=== PATIENT | male | born 1950 | race Caucasian/White ===

== ENCOUNTER 2019-11-27 20:21 | Inpatient (IN) | payer OTHER, SELFPAY ==
[2019-11-27 20:22] VITALS: BP 150/74; PULSE 77; RESP 18; TEMP 36.2; O2SAT 92; BMI 28.0
--- NOTE | 2019-11-27 20:48 | EKG12_ITS ---
Test Reason : SOB Blood Pressure : / mmHG Vent. Rate : 075 BPM Atrial Rate : 075 BPM P-R Int : 096 ms QRS Dur : 124 ms QT Int : 406 ms P-R-T Axes : 019 048 011 degrees QTc Int : 453 ms Sinus rhythm with short CO with Premature supraventricular complexes Right bundle branch block Abnormal ECG Confirmed by CORY LIEBERMAN, JESS ([id number]), brands editor RUBY RYDER ([id number]) on 12/11/2019 9:40:21 A M Referred By: VANESSA CHEW Confirmed By:VALENTÍN RAY MD
--- NOTE | 2019-11-27 21:04 | RAD_ITS ---
STUDY: X-RAY CHEST REASON FOR EXAM: Male, 69 years old. WORSENING COUGH, FEVER AND SOB TECHNIQUE: 1 view COMPARISON: Prior chest radiograph from 01/30/2012 FINDINGS: Limited inspiration with new multifocal groundglass infiltrates bilaterally, left greater than right. There is no demonstrated pleural abnormality. Normal size heart. Normal mediastinum and zakia. Normal visualized pulmonary arteries. There is atherosclerotic tortuosity of the aortic arch and descending thoracic aorta. Normal visualized thoracic spine. Normal visualized ribs, clavicles, and shoulders. There is no demonstrated abnormality of the visualized soft tissue structures of the upper abdomen. RAD/Chest 1 View (Portable) IMPRESSION: Shallow inspiration with bilateral multifocal mild infiltrates, right greater the left consistent with a pneumonic process of viral, atypical or typical nature. Electronically Signed: Bri Stahl MD at 21:35 EDT , Service support ,
[2019-11-27 21:08] LABS: Absolute Lymphocyte Count 1.42 X10^3/uL (0.83-4.51); Absolute Neutrophil Count 5.3 X10^3/uL (2.0-7.7); Basophil# 0.03 X10^3/uL; Basophil% 0.4 % (0-1); Eosinophil# 0.09 X10^3/uL; Eosinophils% 1.2 % (0-5); Hematocrit 46.1 % (40-54); Hemoglobin 15.5 g/dL (13.0-16.5); Lymphocyte # 1.42 X10^3/ul (4.0); Lymphocyte % 18.5 % (19-41); Mean Corp Hgb Conc 33.6 g/dL (32-36); Mean Corpuscular Hgb 30.9 pg (27.0-32.0); Mean Platelet Vol. 10.8 fl (6.2-12.0); Monocyte# 0.83 X10^3/uL; Monocyte% 10.8 % (0-10); NRBC Flagged by Analyzer 0 % (0-5); Neutrophil % 68.8 % (47-70); Platelet Count 282 K/mm3 (150-450); RBC Distribution Width CV 13.9 % (11.6-14.6); RBC Distribution Width SD 47.1 fl (35.1-43.9); Red Blood Count 5.01 M/mm3 (4.6-6.2); White Blood Count 7.7 K/mm3 (4.4-11.0)
[2019-11-27 21:25] LABS: Anion Gap 6 (5-15); BUN 16 mg/dL (7-18); BUN/Creat Ratio 12.6 RATIO (10-20); Calcium,Total 8.4 mg/dL (8.5-10.1); Chloride 101 mmol/L (98-107); Creatinine, Serum 1.27 mg/dL (0.70-1.30); EST Glomerular Filtration Rate 59 mL/min (>60); Est Glom Filt Rate - Afr Amer 72 mL/min (>60); Estimated Creatinine Clearance 56.82 ml/min; Glucose 112 mg/dL (74-106); Sodium Level 133 mmol/L (136-145)
[2019-11-27 22:39] VITALS: O2SAT 92
[2019-11-27 22:40] VITALS: BP 128/92; PULSE 75; RESP 18; TEMP 37.4; O2SAT 92
[2019-11-27] MEDS: Benzonatate 100 MG Capsule PO (22:54)
--- NOTE | 2019-11-27 23:09 | ED.VIS.FLU ---
History of Present Illness Chief Complaint: Cough Informant: Patient Onset: Days Context: Gradual Onset Timing: Continuous Narrative: Patient is a 69-year-old male with history of angina presenting with flulike symptoms for the past week. Patient's had cough, mild shortness of breath and fever. His cough is been nonproductive. He denies any GI or symptoms. He denies associated chest pain. He notes that his son had coronavirus 1 month ago. His has very similar symptoms but also has anosmia. Patient is pretty sure he has coronavirus. Patient has any other complaints at this time. Past Medical History - Allergies and Home Meds Allergies/Adverse Reactions: Allergies No Known Allergies Allergy (Verified 11/27/19 20:48) Past Medical History: - - Angina Surgical History: noncontributory Lives: Spouse/ Significant Other Smoking Status: Never smoker - Family History Maternal Family History: Reports: - - no COPD, Asthma, CAD Review of Systems General: Reports: Fever, Malaise. Denies: Chills, Sweats Cardiovascular: Denies: Chest pain, Palpitations Respiratory: Reports: Dyspnea, Cough. Denies: Sputum, Dyspnea on exertion Gastrointestinal: Denies: Abdominal pain, Nausea, Vomiting, Diarrhea, Melena, Hematochezia Genitourinary: Denies: Dysuria, Hematuria, Frequency Skin: Denies: Rash Neurological: Denies: Headache, Weakness, Numbness Physical Exam Vital Signs/Narrative: Vital Signs Temp Pulse Resp BP Pulse Ox 11/27/19 22:40 99.3 F H 75 18 128/92 H 92 11/27/19 20:22 97.1 F L 77 18 150/74 H 92 Inital Vital Signs reviewed: Yes General: Well nourished, Well developed Head: Normocephalic, Atraumatic Eyes: Perrl, EOMI ENT: TM's clear Neck: Supple, Nontender, No lymphadenopathy, No JVD Cardiovascular: Regular rate, Regular rhythm, No murmurs Respiratory: - - Coarse breath sounds throughout. Negative for: Wheezing, Decreased Air Movement Abdomen: Soft, Nontender, Nondistended, Normal bowel sounds Back: Nontender, Normal Inspection Extremities: Nontender, No edema Skin: Normal color, No rash Neurological: Alert, Oriented x3, Cranial nerves II-XII grossly intact, Normal Strength, Normal Sensation Psychological: Normal affect Diagnostic/Tx/Re-eval Chest X-Ray - ED: 1 View, Read by ED Physician, Read by Radiologist, - - multifocal infiltrate Clinical Impression(s) from Imaging Studies Chest X-Ray 11/27/19 21:04 IMPRESSION: Shallow inspiration with bilateral multifocal mild infiltrates, right greater the left consistent with a pneumonic process of viral, atypical or typical nature. Electronically Signed: Bri Stahl MD at 21:35 EDT , Service support , Laboratory Data 11/27/19 11/27/19 20:38 20:38 WBC 7.7 RBC 5.01 Hgb 15.5 Hct 46.1 MCV 92.0 MCH 30.9 MCHC 33.6 RDW Std Deviation 47.1 H RDW Coeff of Christian 13.9 Plt Count 282 MPV 10.8 Immature Gran % (Auto) 0.300 Neut % (Auto) 68.8 Lymph % (Auto) 18.5 L [place] % (Auto) 10.8 H Eos % (Auto) 1.2 Baso % (Auto) 0.4 Absolute Neuts (auto) 5.3 Absolute Lymphs (auto) 1.42 Nucleated RBC % 0 Sodium 133 L Potassium 4.0 Chloride 101 Carbon Dioxide 26.0 Anion Gap 6 BUN 16 Creatinine 1.27 Estim Creat Clear Calc 56.82 Est GFR (MDRD) Af Amer 72 Est GFR (MDRD) Non-Af 59 L BUN/Creatinine Ratio 12.6 Glucose 112 H Calcium 8.4 L Troponin I < 0.015 - Rhythm Strip Rhythm Strip: Sinus Rhythm Rate: 75 Ectopy: None - EKG Initial EKG Interpretation: Sinus Rhythm, - - This rhythm at a rate of 75 HI interval 96 Right bundle branch block QRS 124 QTc 453 Normal axis T wave changes in 3, V1 through V4 Compared to prior EKG patient now has a new right bundle branch block and T wave changes however this was on 01/30/2012 Prior: Changed - Medical Decision Making Patient evaluated for respiratory symptoms/viral symptoms. His presentation is highly consistent with Covid given the sick contacts in his house and the current pandemic. Chest x-ray does show multifocal infiltrate consistent with a viral pneumonia. Patient is otherwise well-appearing. He is ambulated and does drop to 88%. Patient is more concerned about a cough and is given Tessalon Perles for cough relief in the ER. Given his hypoxia with ambulation I did recommend admission. Patient is initially hesitant but then ultimately agrees. He is otherwise stable at time of disposition. ED Disposition - Plan for ED Patient: Disposition: Acute Care Hospital [facility] Diagnosis: Suspected COVID-19 virus infection
--- NOTE | 2019-11-27 23:25 | HP.PCM_ITS ---
Problem List (1) Suspected COVID-19 virus infection Status: Acute History of Present Illness Date of Admission: 11/27/19 Chief Complaint: shortness of breath, cough The patient is a 69 year old M [] Past Medical History Medical History: Medical History (Last Updated 11/27/19 @ 23:[address] Erick Yang, DO) Angina of effort I20.8 Allergies No Known Allergies Allergy (Verified 11/27/19 20:48) Surgical History: noncontributory Lives: Spouse/ Significant Other Smoking Status: Never smoker - *Family History Maternal History Items: - - no COPD, Asthma, CAD Review of Systems Constitutional: Reports: Malaise. Denies: Anorexia, Chills, Fever, Night Sweats Eyes: Denies: Blurred vision, Double vision HEENT: Denies: Head Aches, Sinus Congestion, Sinus Drainage Cardiovascular: Denies: Chest Pain, Palpitations Respiratory: Reports: Cough, Shortness of breath upon exertion Gastrointestinal: Denies: Abdominal Pain, Nausea, Vomiting Genitourinary: Denies: Dysuria Musculoskeletal: Denies: Joint Pain, Joint Tenderness Skin: Denies: Dryness, Jaundice Hematologic/ Lymphatic: Denies: Easy Bruising, Easy Bleeding, Hx of blood clot Comment: All review of systems were negative except as mentioned above in the history of present illness and the other review of systems. VTE Information - Inpt Only VTE Present on Admission: No VTE Mechan Device Prophylaxis: None VTE Pharm Prophylaxis ordered?: Yes - Physical Exam Vitals/I&O's: Vital Signs Temp Pulse Resp BP Pulse Ox 37.4 C H 75 18 128/92 H 92 11/27/19 22:40 11/27/19 22:40 11/27/19 22:40 11/27/19 22:40 11/27/19 22:40 Oxygen Delivery Method Room Air Weight: 91.1 kg Body Mass Index (BMI) 28.0 General: Alert, Cooperative, No apparent distress HEENT: Atraumatic, Normocephalic Oral: Moist Mucosa, No Gingival or Mucosal Lesions/ Ulcerations Neck: No Nodes, Thyroid Normal Size and Texture Lungs: Normal air movement, - - Few scattered crackles Cardiovascular: Regular rate, Regular Rhythm, Normal S1, Normal S2, No murmurs Abdomen: Bowel Sounds Present, Soft, Non Tender, Non-Distended Extremities: No edema, No Calf Tenderness Psych/Mental Status: Normal Affect, Appropriate Laboratory Results 11/27/19 20:38: WBC 7.7, RBC 5.01, Hgb 15.5, Hct 46.1, MCV 92.0, MCH 30.9, MCHC 33.6, RDW Std Deviation 47.1 H, RDW Coeff of Christian 13.9, Plt Count 282, MPV 10.8, Immature Gran % (Auto) 0.300, Neut % (Auto) 68.8, Lymph % (Auto) 18.5 L, [place] % (Auto) 10.8 H, Eos % (Auto) 1.2, Baso % (Auto) 0.4, Absolute Neuts (auto) 5.3, Absolute Lymphs (auto) 1.42, Nucleated RBC % 0 11/27/19 20:38: Sodium 133 L, Potassium 4.0, Chloride 101, Carbon Dioxide 26.0, Anion Gap 6, BUN 16, Creatinine 1.27, Estim Creat Clear Calc 56.82, Est GFR (MDRD) Af Amer 72, Est GFR (MDRD) Non-Af 59 L, BUN/Creatinine Ratio 12.6, Glucose 112 H, Calcium 8.4 L, Troponin I < 0.015 Chest x-ray personally reviewed and showed some bilateral fluffy infiltrates. Assessment/Plan All Active Problems Suspected COVID-19 virus infection (Acute) 1. Acute suspected COVID-19 infection: Concerning as the patient's is also sick being on if there is uptake in cases. Would hold off any treatment for any additional processes such as bacterial pneumonia. Will start the patient on dexamethasone and consult infectious disease candidate for other therapies, including remdesivir and convalescent plasma. Check additional labs. If necessary, patient may be discharged, consider checking a drop down to the 80% range when he ambulated. 2. VTE prophylaxis: LMWH 3. ACP: DW patient. He wishes to be full code. Inpatient E&M: [id number] Init Hosp L2
[2019-11-28] VITALS (9 sets, daily range): BP systolic 116–128; BP diastolic 62–92; PULSE 58–75; RESP 14–18; TEMP 36.8–38; O2SAT 86–95; BMI 27.3
[2019-11-28 00:21] LABS: International Normalized Ratio 1.1; Prothrombin Time (Protime)PT. 13.3 SECONDS (11.7-14.9)
[2019-11-28 00:30] LABS: LDH 257 U/L (87-241)
[2019-11-28 00:33] LABS: Fibrinogen 519 mg/dl (203-444)
[2019-11-28 00:44] LABS: D-Dimer Quantitative (DVT/PE) 0.91 FEU/ug/m (0.27-0.49)
[2019-11-28 00:57] LABS: Lactic Acid 0.9 mmol/L (0.4-1.9)
--- NOTE | 2019-11-28 00:58 | NURSING ---
Patient admitted into room CVICU 204 in stable condition with belongings including cell phone, clothing, and wallet.
[2019-11-28 01:40] LABS: Procalcitonin 0.08 ng/mL (0.00-0.09)
[2019-11-28 05:38] LABS: Absolute Lymphocyte Count 1.36 X10^3/uL (0.83-4.51); Absolute Neutrophil Count 5.3 X10^3/uL (2.0-7.7); Basophil# 0.03 X10^3/uL; Basophil% 0.4 % (0-1); Eosinophil# 0.03 X10^3/uL; Eosinophils% 0.4 % (0-5); Hematocrit 46.6 % (40-54); Hemoglobin 15.3 g/dL (13.0-16.5); Lymphocyte # 1.36 X10^3/ul (4.0); Lymphocyte % 17.9 % (19-41); Mean Corp Hgb Conc 32.8 g/dL (32-36); Mean Corpuscular Hgb 30.8 pg (27.0-32.0); Mean Corpuscular Volume 93.8 fL (80-94); Mean Platelet Vol. 10.8 fl (6.2-12.0); Monocyte# 0.86 X10^3/uL; Monocyte% 11.3 % (0-10); NRBC Flagged by Analyzer 0 % (0-5); Neutrophil # 5.27 X10^3/uL (2.7-7.7); Neutrophil % 69.6 % (47-70); POSITIVE COUNT YES; Platelet Count 244 K/mm3 (150-450); RBC Distribution Width SD 48.8 fl (35.1-43.9); Red Blood Count 4.97 M/mm3 (4.6-6.2); White Blood Count 7.6 K/mm3 (4.4-11.0)
[2019-11-28 05:44] LABS: Anion Gap 5 (5-15); BUN 15 mg/dL (7-18); BUN/Creat Ratio 13.2 RATIO (10-20); Calcium,Total 8.1 mg/dL (8.5-10.1); Chloride 103 mmol/L (98-107); Creatinine, Serum 1.14 mg/dL (0.70-1.30); EST Glomerular Filtration Rate 67 mL/min (>60); Est Glom Filt Rate - Afr Amer 81 mL/min (>60); Estimated Creatinine Clearance 61.37 ml/min; Glucose 98 mg/dL (74-106); Potassium 3.9 mmol/L (3.5-5.1); Sodium Level 134 mmol/L (136-145)
[2019-11-28 05:50] LABS: Differential Indicated SCAN CRITERIA MET
[2019-11-28 06:30] LABS: Differential Comment SCANNED
[2019-11-28 06:31] LABS: Platelet Estimate ADEQUATE (ADEQ)
[2019-11-28] MEDS: dexAMETHasone 10 MG/ML Vial 6 MG IV (09:12)
[2019-11-28] MEDS: Enoxaparin 30 MG/0.3 ML Syringe SC (09:12)
[2019-11-28] MEDS: 0.9% Saline Lock 10 ML Syringe IV (09:13)
--- NOTE | 2019-11-28 13:30 | CASEMGMT ---
SVETLANA WELCH ASSESSMENT COVID-19 positive. Pt in isolation precautions. SVETLANA WELCH placed call to pt in his room at this time. Introduced self and role of SVETLANA WELCH @ [facility]. Care providers, pharmacy, and demographics verified/updated at this time. PCP: Dr Singer Specialists: none Preferred Pharmacy: [facility] Retail Insurance: [facility] [place] Prescription Benefit:? none Living Will/HPOA:? States does not have LW or HCPOA .? Interested in more information. Pt made aware SW can assist w/completion of this if he would like to make an appt as an out-pt after he is out of COVID precautions and that further info would be provided. SW rac card given to RN to give to pt. Pt voices appreciation. LNOK: , Graciela. 3 sons Living Arrangements/support: Lives w/his in 1 2 story home w/2 steps to enter. Independent. Pt aware his should self-quarantine x 14 days. He states they have mask, hand mainspring reverse winder, and disinfectants. Grand-children can get groceries, supplies, and medications as needed. Transportation: Hire drivers, family, neighbors. DME: ? Denies using any DME. Pt aware he may need oxygen @ d/c. He denies having preference of DME company. Pt wishes to return home and states has no concerns with going home at time of discharge.? CM to follow for home oxygen needs and any further discharge planning/needs.? Pt voices no further concerns/needs at this time.? Advised pt to ask for CM if any further questions/concerns/needs arise.? Voices understanding. PLAN: ?Home w/family support and discharge plans in place. Will need home oxygen testing done prior to d/c. Tad QURESHI RN, CM
--- NOTE | 2019-11-28 15:15 | DCINST_ITS ---
- Discharge Diagnoses Current Active Problems: Current Active and Chronic Problems (Last Updated 11/27/19 @ 23:[address] Erick Yang, DO) Suspected COVID-19 virus infection (Acute) You will use the following diet at home:: No restrictions Your food should be the consistency of: Regular Your liquids should be the consistency of: Regular/Thin Discharge Activity: Return to Normal Activity Weight Bearing Status: Full weight bearing Additional Instructions: QUARANTINE AT HOME FOR TEN DAYS. USE OXYGEN AT 2 LITERS UNTIL FOLLOWUP. i RECOMMEND GOING OFF ASPIRIN A DAILY MED Allergies/Adverse Reactions: Allergies No Known Allergies Allergy (Verified 11/27/19 20:48) Medications to take at Discharge Acetaminophen [Tylenol Tablet] 650 mg PO Q6H PRN PRN tablet 11/28/19 Dexamethasone [Decadron] 6 mg PO DAILY@0800 #15 tab 11/28/19 Diltiazem HCl [Cartia Xt] 1 cap PO DAILY 11/28/19 The following prescriptions were given: Dexamethasone [Decadron] 6 mg PO DAILY@0800 #15 tab Transmission Status: Pending to [facility] Primary Care Physician: Stanislaw Singer MD [Primary Care Provider] - Please follow up with your Primary Care Physician in: IN 10 DAYS Test Results: Test results from this visit will be discussed in further detail at your follow- up appointment, if applicable.
--- NOTE | 2019-11-28 15:56 | CASEMGMT ---
SVETLANA WELCH NOTE: Pt being discharged and he qualifies for Home O2 @ 2l/m w/exertion. Call placed to pt's room. He is aware cost of O2 for one month is approx ~158 and states this is affordable and he can pay via phone. Pt has no preference of [employer] company. Script for O2 faxed to [employer] at this time along w/Home O2 testing results and demographics sheet. . Call placed to [facility] and spoke w/Beulah. She was made aware pt is discharging today and will need O2 delivered to [facility]. She will contact pt for payment and to set up home delivery. Awaiting delivery of oxygen. Tad QURESHI RN CM
--- NOTE | 2019-11-28 16:10 | CON.PCM_ITS ---
Problem List (1) COVID-19 Status: Acute Reason for Consult: covid Consulted by: Dr. Yang History of Present Illness: The patient is a 69 year old M with sx starting 11/21 of cough, fatigue, not feeling well. No change in taste/smell. No aches, no headache, no n/v/d. Developed dyspnea after mowing, came to ED. also with similar symptoms but not as sick as him. Admitted on 4L O2 and dexamethasone. Feeling better today, O2 improved. No chest pain. Full ROS performed and neg except as noted above. - Medical History Surgical History: reviewed Allergies/Adverse Reactions: Allergies No Known Allergies Allergy (Verified 11/27/19 20:48) Home Medications: Ambulatory Orders Medication Instructions Recorded Acetaminophen [Tylenol Tablet] 650 mg PO Q6H PRN PRN tab 11/28/19 Dexamethasone [Decadron] 6 mg PO DAILY@0800 #15 tab 11/28/19 Diltiazem HCl [Cartia Xt] 1 cap PO DAILY 11/28/19 - Social History Tobacco Use: non-smoker Vital Signs Temp Pulse Resp BP Pulse Ox 98.2 F 73 18 127/70 H 92 11/28/19 14:00 11/28/19 14:00 11/28/19 14:00 11/28/19 14:00 11/28/19 14:00 Oxygen Flow Rate (L/min) [ 2 AMBULATION with Oxygen] Oxygen Flow Rate (L/min) 2 Oxygen Delivery Method Nasal Cannula Weight: 88.7 kg Body Mass Index (BMI) 27.3 Laboratory Tests Past 24 Hrs 11/27/19 11/27/19 11/27/19 20:38 20:38 20:38 WBC 7.7 RBC 5.01 Hgb 15.5 Hct 46.1 MCV 92.0 MCH 30.9 MCHC 33.6 RDW Std Deviation 47.1 H RDW Coeff of Christian 13.9 Plt Count 282 MPV 10.8 Immature Gran % (Auto) 0.300 Neut % (Auto) 68.8 Lymph % (Auto) 18.5 L [place] % (Auto) 10.8 H Eos % (Auto) 1.2 Baso % (Auto) 0.4 Absolute Neuts (auto) 5.3 Absolute Lymphs (auto) 1.42 Nucleated RBC % 0 Differential Comment Platelet Estimate PT 13.3 INR 1.1 Fibrinogen 519 H D-Dimer Quant (PE/DVT) 0.91 H* Sodium 133 L Potassium 4.0 Chloride 101 Carbon Dioxide 26.0 Anion Gap 6 BUN 16 Creatinine 1.27 Estim Creat Clear Calc 56.82 Est GFR (MDRD) Af Amer 72 Est GFR (MDRD) Non-Af 59 L BUN/Creatinine Ratio 12.6 Glucose 112 H Lactic Acid Calcium 8.4 L Lactate Dehydrogenase Troponin I < 0.015 Procalcitonin COVID-19 (SAMMI) 11/27/19 11/27/19 11/28/19 20:38 23:20 00:20 WBC RBC Hgb Hct MCV MCH MCHC RDW Std Deviation RDW Coeff of Christian Plt Count MPV Immature Gran % (Auto) Neut % (Auto) Lymph % (Auto) [place] % (Auto) Eos % (Auto) Baso % (Auto) Absolute Neuts (auto) Absolute Lymphs (auto) Nucleated RBC % Differential Comment Platelet Estimate PT INR Fibrinogen D-Dimer Quant (PE/DVT) Sodium Potassium Chloride Carbon Dioxide Anion Gap BUN Creatinine Estim Creat Clear Calc Est GFR (MDRD) Af Amer Est GFR (MDRD) Non-Af BUN/Creatinine Ratio Glucose Lactic Acid 0.9 Calcium Lactate Dehydrogenase 257 H Troponin I Procalcitonin COVID-19 (SAMMI) Detected 11/28/19 11/28/19 11/28/19 00:20 05:20 05:20 WBC 7.6 RBC 4.97 Hgb 15.3 Hct 46.6 MCV 93.8 MCH 30.8 MCHC 32.8 RDW Std Deviation 48.8 H RDW Coeff of Christian 14.0 Plt Count 244 MPV 10.8 Immature Gran % (Auto) 0.400 Neut % (Auto) 69.6 Lymph % (Auto) 17.9 L [place] % (Auto) 11.3 H Eos % (Auto) 0.4 Baso % (Auto) 0.4 Absolute Neuts (auto) 5.3 Absolute Lymphs (auto) 1.36 Nucleated RBC % 0 Differential Comment SCANNED Platelet Estimate ADEQUATE PT INR Fibrinogen D-Dimer Quant (PE/DVT) Sodium 134 L Potassium 3.9 Chloride 103 Carbon Dioxide 26.0 Anion Gap 5 BUN 15 Creatinine 1.14 Estim Creat Clear Calc 61.37 Est GFR (MDRD) Af Amer 81 Est GFR (MDRD) Non-Af 67 BUN/Creatinine Ratio 13.2 Glucose 98 Lactic Acid Calcium 8.1 L Lactate Dehydrogenase Troponin I Procalcitonin 0.08 COVID-19 (SAMMI) - Other Studies Radiology: [] reviewed Other Studies: [] Route of nutrition/ use of supplements: [] Nutritional Intake: [] IV Site: [] Bang Catheter: [] - Physical Exam General: Alert, Oriented x3, Cooperative, No apparent distress HEENT: Atraumatic, PERRLA, EOMI Neck: Supple, No Nodes Lungs: Clear to auscultation, Normal air movement - mildly diminished Cardiovascular: Regular rate, Regular Rhythm, No murmurs Abdomen: Soft, Non Tender, Non-Distended Extremities: No edema Skin: No rashes IV Site: Peripheral, without redness Musculoskeletal: No Tenderness to Palpation of Joints or Extremities Neurological: Cranial nerves II-XII grossly intact - Assessment/Plan Antibiotics: [] Assessment/Plan: [] Active and Suspected Problems (Last Updated 11/27/19 @ 23:[address] Erick Yang, DO) Suspected COVID-19 virus infection (Acute) covid with acute hypoxic resp failure - doing better today, ok for discharge home to complete 10 total days of dexamethasone, home O2. Counseling him re: monitoring sat, prone positioning, coming back if dyspnea worsens. Quarantine f or one more week. Will follow, thank you, d/w primary team.
--- NOTE | 2019-11-30 16:42 | DS.PCM_ITS ---
Discharge Date and Diagnosis - Problem List Patient Problems: Active and Suspected Problems (Last Updated 11/27/19 @ 23:[address] Erick Yang DO) Suspected COVID-19 virus infection (Acute) COVID-19 (Acute) Date of Admission: 11/27/19 Date of Discharge: 11/28/19 - Primary Discharge Diagnosis Acute Problems: Active Problems (Last Updated 11/27/19 @ 23:[address] Erick Yang DO) #1 acute COVID-19 infection #2 hypoxia secondary to COVID-19 infection #3 essential hypertension Hospital Course and Treatment Operations: None Procedures: None Summary of Care Provided: The patient is a 69 year old M seen in the emergency room at [facility] with a chief complaint of cough with mild shortness of breath. Work-up in the emergency room included a chest x-ray which showed bilateral multifocal mild infiltrates right greater than left, blood cell count was normal, Covid test was positive. Patient's oxygen dropped to 88% when ambulating. Patient was admitted to [place] [address], he was seen in consultation by infectious diseases who did not feel the patient warranted remdesivir or convalescent plasma. Patient required 2 L of oxygen when ambulating due to the fact his pulse ox was 86 ambulating on room air. O2 saturation was 95% on ambulation with 2 L and at rest, patient's pulse ox was 90%. He was supplied with portable oxygen, he is expected to use oxygen in his house and outside his house when ambulating. On 11/28/2019, patient was seen and examined: On examination he appeared in good health and spirits. Vital signs as documented. Skin warm and dry and without overt rashes. Neck without JVD, neck was supple, trachea midline, thyroid was normal. Lungs clear bilaterally, normal air movement was noted. Heart exam notable for regular rhythm, normal sounds and absence of murmurs, rubs or gallops. Abdomen unremarkable and without evidence of organomegaly, masses, or abdominal aortic enlargement. Bowel sounds are present, abdomen is not distended. Extremities nonedematous, no cyanosis was noted, no clubbing was noted. Neuro: Cranial nerves II through XII are grossly intact, no focal motor deficits were noted, sensation to light touch and pinprick intact, motor exam 5/5 throughout. Psych: Patient is alert and oriented x3, he does not appear anxious or depressed, he does not appear agitated. Patient was discharged home in stable condition on 11/28/2019. Patient Problems: Active and Suspected Problems (Last Updated 11/27/19 @ 23:[address] Erick Yang, DO) Suspected COVID-19 virus infection (Acute) COVID-19 (Acute) - Physical Exam Vitals/I&O's: Vital Signs Temp Pulse Resp BP Pulse Ox 98.2 F 73 18 127/70 H 92 11/28/19 17:02 11/28/19 17:02 11/28/19 17:02 11/28/19 17:02 11/28/19 17:02 Oxygen Flow Rate (L/min) [ 2 AMBULATION with Oxygen] Oxygen Flow Rate (L/min) 2 Oxygen Delivery Method Nasal Cannula Weight: 88.7 kg Body Mass Index (BMI) 27.3 Intake and Output for Last 24 Hours 11/28/19 11/29/19 11/30/19 23:59 23:59 23:59 Intake Total 700 / 700 Balance 700 / 700 Discharge Activity: Return to Normal Activity Weight Bearing Status: Full weight bearing Home Medications: Medications to take at Discharge Acetaminophen [Tylenol Tablet] 650 mg PO Q6H PRN PRN tab 11/28/19 Dexamethasone [Decadron] 6 mg PO DAILY@0800 #15 tab 11/28/19 Diltiazem HCl [Cartia Xt] 1 cap PO DAILY 11/28/19 Following Prescriptions Were Given to Patient: Dexamethasone [Decadron] 6 mg PO DAILY@0800 #15 tab Transmission Status: Received by [facility] Primary Care Physician: Stanislaw Singer MD [Primary Care Provider] - Please follow up with your Primary Care Physician in: IN 10 DAYS Disposition: Home Minutes spent on discharge:: 32 Patient Condition:: Stable Medical Necessity - Tobacco Use Smoking Status: Never smoker Meaningful Use Info Meaningful Use Diagnoses (Choose all that apply): None applicable Inpatient E&M: 66134 Disch Hosp
== END 2019-11-28 17:03 | disposition home or self-care (01) | DRG 179 ==
LOC: ED 21:40 → ICU 23:57
PROVIDERS: Emergency Provider Emergency Medicine; PCP Family Medicine; Visit Provider Internal Medicine
DX: U07.1 COVID-19 (principal); I20.9 Angina pectoris, unspecified; I10 Essential (primary) hypertension; R09.02 Hypoxemia
CPT/HCPCS: 71045; 80048; 83605; 83615; 84145; 84484; 85025; 85379; 85384; 85610; 87635; 93005; 94760; 99283; 99285; A4216; U0003

== ENCOUNTER 2022-06-24 11:03 | Emergency (ER) | payer OTHER, SELFPAY ==
[2022-06-24 11:05] VITALS: BP 130/70; PULSE 71; RESP 16; TEMP 36.2; O2SAT 98; BMI 27.6
--- NOTE | 2022-06-24 11:24 | EX.ED.DYSGE1 ---
HPI <ANTONIO Angel - Last Filed: 06/24/22 19:36> History of Present Illness Chief Complaint: GI Bleed Narrative Narrative: Patient presenting today due black stools that he has noticed since the end of May. He states he been feeling lightheaded intermittently. He states that he noticed dark and tarry stools several months ago that went away after about 5 days and he was never evaluated for it. He denies a history of any history of gastric ulcers, bright red blood in the stool, chest pain, shortness of breath, abdominal pain, nausea, and vomiting. He denies alcohol use, tobacco use, and frequent use of NSAIDs. PMH includes coronary artery disease. Patient does take a baby aspirin daily. PFSH <ANTONIO Angel - Last Filed: 06/24/22 19:36> [facility] Medical History (Updated 06/24/22 @ 13:[address] Almas Jacob, DO) Angina of effort Hypertension Home Medications acetaminophen 325 mg tablet 650 mg PO Q6H PRN PRN Pain Score 1-10/Temp > 100.7 F 11/28/19 [Rx Last Taken Unknown] dexamethasone 4 mg tablet 6 mg PO DAILY@0800 #15 tabs 11/28/19 [Rx Last Taken Unknown] diltiazem HCl 180 mg capsule,extended release 24 hr 1 cap PO DAILY Check with primary doctor 11/28/19 [History Last Taken 11/27/19 08:00] aspirin 81 mg tablet,delayed release 81 mg PO DAILY 06/24/22 [History Last Taken Unknown] atorvastatin 40 mg tablet 40 mg PO DAILY 06/24/22 [History Last Taken Unknown] bupropion HCl 300 mg 24 hr tablet, extended release 300 mg PO DAILY 06/24/22 [History Last Taken Unknown] carvedilol 3.125 mg tablet 12.5 mg PO DAILY 06/24/22 [History Last Taken Unknown] folic acid 1 mg tablet 1 mg PO DAILY 06/24/22 [History Last Taken Unknown] losartan 50 mg tablet 50 mg PO DAILY 06/24/22 [History Last Taken Unknown] omeprazole 40 mg capsule,delayed release 40 mg PO DAILY #30 caps 06/24/22 [Rx Last Taken Unknown] Allergy/AdvReac Type Severity Reaction Status Date / Time No Known Allergies Allergy Verified 06/24/22 11:04 Social History Smoking Status: Never smoker ROS <ANTONIO Angel - Last Filed: 06/24/22 19:36> ROS ED Constitutional Constitutional ED: Denies chills or fever(s) Cardiovascular Cardiovascular: Denies chest pain or palpitations Respiratory/Chest Respiratory/Chest: Denies cough, dyspnea or dyspnea on exertion Gastrointestinal Gastrointestinal: Reports melena; Denies abdominal pain, constipation, diarrhea, nausea or vomiting Musculoskeletal Musculoskeletal: Denies arthralgias or myalgias Integumentary Denies abscess, Abrasions or rash Neurologic Neurologic: Denies dizziness Psychiatric Psychiatric: Denies anxiety or depression EXAM <ANTONIO Angel - Last Filed: 06/24/22 19:36> Physical Exam Const Vital Signs: 06/24/22 11:05 06/24/22 12:19 06/24/22 12:56 Temperature 97.1 F L Temperature Source Temporal Pulse Rate 71 60 Pulse Rate [Lying] 71 Pulse Rate [Sitting (for 1 minute prior to obtaining)] 59 L Pulse Rate [Standing (for 1 minute prior to obtaining)] 59 L Respiratory Rate 16 16 Blood Pressure 130/70 H 124/80 H Blood Pressure [Lying] 141/86 H Blood Pressure [Sitting (for 1 minute prior to obtaining)] 159/63 H Blood Pressure [Standing (for 1 minute prior to obtaining)] 143/93 H Blood Pressure Mean 90 94 Blood Pressure Mean [Lying] 104 Blood Pressure Mean [Sitting (for 1 minute prior to obtaining)] 95 Blood Pressure Mean [Standing (for 1 minute prior to obtaining)] 109 Pulse Ox 98 98 Oxygen Delivery Method Room Air Room Air 06/24/22 13:37 Temperature Temperature Source Pulse Rate 58 L Pulse Rate [Lying] Pulse Rate [Sitting (for 1 minute prior to obtaining)] Pulse Rate [Standing (for 1 minute prior to obtaining)] Respiratory Rate 18 Blood Pressure 143/83 H Blood Pressure [Lying] Blood Pressure [Sitting (for 1 minute prior to obtaining)] Blood Pressure [Standing (for 1 minute prior to obtaining)] Blood Pressure Mean Blood Pressure Mean [Lying] Blood Pressure Mean [Sitting (for 1 minute prior to obtaining)] Blood Pressure Mean [Standing (for 1 minute prior to obtaining)] Pulse Ox 99 Oxygen Delivery Method Positive well nourished, well developed and no apparent distress General Appearance ED: well developed HEENT Reports normocephalic and head/scalp atraumatic Mouth ED: Yes moist mucous membranes normal Eyes PERRL and EOMs intact bilaterally Neck full ROM and supple Chest Wall inspection of chest normal Resp normal respiratory effort and clear to auscultation bilaterally Cardio regular rate and regular rhythm GI soft to palpation, non-tender, non-distended and no masses Back/Spine normal ROM and normal to inspection Extremity normal to inspection and full ROM Neuro oriented x3, CN's II-XII intact bilaterally, moves all extremities, no focal motor deficits and no sensory deficits noted Sensorium / Orientation: awake and alert Psych mental status grossly normal and thought process normal Skin no rashes or lesions noted and no wounds <Dr. Almas Jacob, DO - Last Filed: 06/24/22 13:37> Physical Exam Const Vital Signs: 06/24/22 11:05 06/24/22 12:19 06/24/22 12:56 Temperature 97.1 F L Temperature Source Temporal Pulse Rate 71 60 Pulse Rate [Lying] 71 Pulse Rate [Sitting (for 1 minute prior to obtaining)] 59 L Pulse Rate [Standing (for 1 minute prior to obtaining)] 59 L Respiratory Rate 16 16 Blood Pressure 130/70 H 124/80 H Blood Pressure [Lying] 141/86 H Blood Pressure [Sitting (for 1 minute prior to obtaining)] 159/63 H Blood Pressure [Standing (for 1 minute prior to obtaining)] 143/93 H Blood Pressure Mean 90 94 Blood Pressure Mean [Lying] 104 Blood Pressure Mean [Sitting (for 1 minute prior to obtaining)] 95 Blood Pressure Mean [Standing (for 1 minute prior to obtaining)] 109 Pulse Ox 98 98 Oxygen Delivery Method Room Air Room Air 06/24/22 13:37 Temperature Temperature Source Pulse Rate 58 L Pulse Rate [Lying] Pulse Rate [Sitting (for 1 minute prior to obtaining)] Pulse Rate [Standing (for 1 minute prior to obtaining)] Respiratory Rate 18 Blood Pressure 143/83 H Blood Pressure [Lying] Blood Pressure [Sitting (for 1 minute prior to obtaining)] Blood Pressure [Standing (for 1 minute prior to obtaining)] Blood Pressure Mean Blood Pressure Mean [Lying] Blood Pressure Mean [Sitting (for 1 minute prior to obtaining)] Blood Pressure Mean [Standing (for 1 minute prior to obtaining)] Pulse Ox 99 Oxygen Delivery Method [facility] <ANTONIO Angel Last Filed: 06/24/22 19:36> [facility] Narrative Medical decision making narrative: Patient presenting today due to black stools that he has noticed since the end of May. He states that he did notice dark stools around a year ago that lasted for about 5 days but he never followed up with a provider for this. He states he has been feeling lightheaded. Labs to be obtained to rule out anemia, leukocytosis, assess kidney function, rule out electrolyte abnormality. Stool occult will be obtained to rule out GI bleed and is positive. Patient has been given Protonix. H&H is 14 and 42.7. During orthostatic vital signs, patient did not become symptomatic. He was able to ambulate without any lightheadedness or difficulty. Because we do not have GI coverage, shared decision making was made with the patient regarding transfer to a different facility vs close outpatient follow-up and PPI. He does not want to be transferred and would rather follow-up outpatient. I have given him a prescription for omeprazole and have told him to hold his baby aspirin until he meets with Dr. Fajardo. He has been given strict return instructions and will be discharged home in stable condition. He is comfortable with plan. Interventions / MDM: Differential diagnosis: Upper GI bleed, gastric ulcer, gastritis Diagnosis considered but do not suspect: N/A My EKG interpretation: Sinus, normal QTc right bundle branch block similar to previous in 2019. Imaging independently reviewed and interpreted by myself: N/A External documents reviewed: N/A Test considered but not ordered:N/A ED course: Attending note: Patient seen and evaluated with painter foreman. I perform my own [id number] evaluation. I agree with the plan of work-up. Reporting dark stools for the past couple weeks 1-2 times a day. Today lightheaded symptoms. No dyspnea or exertional dyspnea. He takes baby aspirin. He denies lyrh-pyw-youofog NSAID use. Similar symptoms over winter break lasting 5 days. No upper endoscopies in the past. Denies abdominal pain. Exam normal conjunctivae with no pallor of the skin and soft abdomen. No guarding or rebound. Rectal exam performed by painter foreman is guaiac positive hemoglobin is 14. EKG chronic right bundle branch block. Orthostatic positive by heart rate by numbers however clinically he was not lightheaded. Considered admission with the patient with his age and upper GI bleed, there is no GI coverage and discussed transfer for the patient however he declines at this time. Shared decision making made with the patient. He started on a PPI outpatient GI follow-up with strict return precautions. He will hold his baby aspirin as he reports he had a normal cath a year ago with no interventions. Re-evaluation: stable Disposition discussed with patient/family/significant other: Patient and son Case discussed with consulting clinician: N/A Lab Data Lab results narrative: H&H 14 and 42.7, platelet count 519, anion gap 4, creatinine 1.32, GFR 56 Labs: Laboratory Results - last 24 hr 06/24/22 06/24/22 06/24/22 11:40 11:40 11:40 WBC 8.7 RBC 4.44 L Hgb 14.0 Hct 42.7 MCV 96.2 H MCH 31.5 MCHC 32.8 RDW Std Deviation 49.0 H RDW Coeff of Christian 13.7 Plt Count 519 H MPV 9.9 Immature Gran % (Auto) 0.700 Neut % (Auto) 63.1 Lymph % (Auto) 24.1 [place] % (Auto) 8.3 Eos % (Auto) 3.2 Baso % (Auto) 0.6 Absolute Neuts (auto) 5.5 Absolute Lymphs (auto) 2.09 Nucleated RBC % 0 Sodium 143 Potassium 4.5 Chloride 110 H Carbon Dioxide 29.0 Anion Gap 4 L BUN 17 Creatinine 1.32 H Estim Creat Clear Calc 53.08 Est GFR (MDRD) Af Amer 68 Est GFR (MDRD) Non-Af 56 L BUN/Creatinine Ratio 12.9 Glucose 108 H Calcium 8.5 Blood Type A POSITIVE Antibody Screen NEGATIVE EKG Initial EKG: Comments: 59 bpm, sinus bradycardia, right bundle branch block, no ST elevation, reviewed and interpreted by attending ED physician <Dr. Almas Jacob, DO - Last Filed: 06/24/22 13:37> [facility] Narrative Medical decision making narrative: Patient presenting today due to black stools that he has noticed since the end of May. He states that he did notice dark stools around a year ago that lasted for about 5 days but he never followed up with a provider for this. He states he has been feeling lightheaded. Labs to be obtained to rule out anemia, leukocytosis, assess kidney function, rule out electrolyte abnormality. Stool occult will be obtained to rule out GI bleed. Patient has been given Protonix. Interventions / MDM: Differential diagnosis: Upper GI bleed, gastric ulcer, gastritis Diagnosis considered but do not suspect: N/A My EKG interpretation: Sinus, normal QTc right bundle branch block similar to previous in 2019. Imaging independently reviewed and interpreted by myself: N/A External documents reviewed: N/A Test considered but not ordered:N/A ED course: Attending note: Patient seen and evaluated with painter foreman. I perform my own [id number] evaluation. I agree with the plan of work-up. Reporting dark stools for the past couple weeks 1-2 times a day. Today lightheaded symptoms. No dyspnea or exertional dyspnea. He takes baby aspirin. He denies vexl-fbh-thzykie NSAID use. Similar symptoms over winter break lasting 5 days. No upper endoscopies in the past. Denies abdominal pain. Exam normal conjunctivae with no pallor of the skin and soft abdomen. No guarding or rebound. Rectal exam performed by painter foreman is guaiac positive hemoglobin is 14. EKG chronic right bundle branch block. Orthostatic positive by heart rate by numbers however clinically he was not lightheaded. Considered admission with the patient with his age and upper GI bleed, there is no GI coverage and discussed transfer for the patient however he declines at this time. Shared decision making made with the patient. He started on a PPI outpatient GI follow-up with strict return precautions. He will hold his baby aspirin as he reports he had a normal cath a year ago with no interventions. Re-evaluation: stable Disposition discussed with patient/family/significant other: Patient and son Case discussed with consulting clinician: N/A Lab Data Attestation: I reviewed the patient's lab results. Labs: Laboratory Results - last 24 hr 06/24/22 06/24/22 06/24/22 11:40 11:40 11:40 WBC 8.7 RBC 4.44 L Hgb 14.0 Hct 42.7 MCV 96.2 H MCH 31.5 MCHC 32.8 RDW Std Deviation 49.0 H RDW Coeff of Christian 13.7 Plt Count 519 H MPV 9.9 Immature Gran % (Auto) 0.700 Neut % (Auto) 63.1 Lymph % (Auto) 24.1 [place] % (Auto) 8.3 Eos % (Auto) 3.2 Baso % (Auto) 0.6 Absolute Neuts (auto) 5.5 Absolute Lymphs (auto) 2.09 Nucleated RBC % 0 Sodium 143 Potassium 4.5 Chloride 110 H Carbon Dioxide 29.0 Anion Gap 4 L BUN 17 Creatinine 1.32 H Estim Creat Clear Calc 53.08 Est GFR (MDRD) Af Amer 68 Est GFR (MDRD) Non-Af 56 L BUN/Creatinine Ratio 12.9 Glucose 108 H Calcium 8.5 Blood Type A POSITIVE Antibody Screen NEGATIVE Discharge Plan Triage Chief Complaint: GI Bleed ED Midlevel Provider: Paula Meyers ED Provider: Almas Jacob Dx/Rx/DC Orders Clinical Impression: GI bleed, Melena Instructions: ED Upper GI Bleeding (Stable) Prescriptions: New omeprazole 40 mg capsule,delayed release(DR/EC) 40 mg PO DAILY Qty: 30 0RF No Action diltiazem HCl 180 MG capsule,extended release 24hr 1 cap PO DAILY Label Comments: TAKE 1 CAPSULE BY MOUTH ONCE DAILY acetaminophen 325 MG tablet 650 mg PO Q6H PRN PRN (Reason: Pain Score 1-10/Temp > 100.7 F) 0RF dexamethasone 4 MG tablet 6 mg PO DAILY@0800 Qty: 15 0RF losartan 50 mg tablet 50 mg PO DAILY Label Comments: TAKE 1 TABLET BY MOUTH ONCE DAILY atorvastatin 40 mg tablet 40 mg PO DAILY Label Comments: TAKE 1 TABLET BY MOUTH ONCE DAILY AT BEDTIME aspirin 81 mg tablet,delayed release (DR/EC) 81 mg PO DAILY Label Comments: TAKE 1 TABLET BY MOUTH ONCE DAILY carvedilol 3.125 mg tablet 12.5 mg PO DAILY Label Comments: TAKE 1 TABLET BY MOUTH TWICE DAILY folic acid 1 mg tablet 1 mg PO DAILY Label Comments: TAKE 2 TABLETS BY MOUTH ONCE DAILY bupropion HCl 300 mg tablet extended release 24 hr 300 mg PO DAILY Label Comments: TAKE 1 TABLET BY MOUTH ONCE DAILY Primary Care Provider: Stanislaw Singer Referrals: Stanislaw Singer MD [Primary Care Provider] - Konstantin Fajardo DO [Med Staff - Active Staff] - 3-5 Days Activity Restrictions/Additional Instructions: Called to make an appointment with Dr. Fajardo and follow-up with him as soon as possible. Please return for any worsening of your symptoms. Disposition Disposition: Home, Self Care Discharge Date/Time: 06/24/22 13:39
[2022-06-24 11:58] LABS: Absolute Lymphocyte Count 2.09 X10^3/uL (0.83-4.51); Absolute Neutrophil Count 5.5 X10^3/uL (2.0-7.7); Basophil# 0.05 X10^3/uL; Basophil% 0.6 % (0-1); Eosinophil# 0.28 X10^3/uL; Eosinophils% 3.2 % (0-5); Hematocrit 42.7 % (40-54); Lymphocyte # 2.09 X10^3/ul (0.83-4.51); Lymphocyte % 24.1 % (19-41); Mean Corp Hgb Conc 32.8 g/dL (32-36); Mean Corpuscular Hgb 31.5 pg (27.0-32.0); Mean Corpuscular Volume 96.2 fL (80-94); Mean Platelet Vol. 9.9 fl (6.2-12.0); Monocyte# 0.72 X10^3/uL; Monocyte% 8.3 % (0-10); NRBC Flagged by Analyzer 0 % (0-5); Neutrophil # 5.47 X10^3/uL (2.7-7.7); Neutrophil % 63.1 % (47-70); Platelet Count 519 K/mm3 (150-450); RBC Distribution Width CV 13.7 % (11.6-14.6); Red Blood Count 4.44 M/mm3 (4.6-6.2); White Blood Count 8.7 K/mm3 (4.4-11.0)
--- NOTE | 2022-06-24 12:01 | EKG12_ITS ---
Test Reason : gi bleed Blood Pressure : / mmHG Vent. Rate : 059 BPM Atrial Rate : 059 BPM P-R Int : 150 ms QRS Dur : 140 ms QT Int : 452 ms P-R-T Axes : 040 001 -09 degrees QTc Int : 447 ms Sinus bradycardia with Fusion complexes Right bundle branch block Nonspecific ST-T changes Abnormal ECG Confirmed by CORY LIEBERMAN, JESS ([id number]), social media editor RUBY RYDER ([id number]) on 06/26/2022 11:29:13 A M Referred By: Sergio Confirmed By:VALENTÍN RAY MD
[2022-06-24 12:04] LABS: Anion Gap 4 (5-15); BUN 17 mg/dL (7-18); BUN/Creat Ratio 12.9 RATIO (10-20); Calcium,Total 8.5 mg/dL (8.5-10.1); Chloride 110 mmol/L (98-107); Creatinine, Serum 1.32 mg/dL (0.70-1.30); EST Glomerular Filtration Rate 56 mL/min (>60); Est Glom Filt Rate - Afr Amer 68 mL/min (>60); Estimated Creatinine Clearance 53.08 ml/min; Glucose 108 mg/dL (74-106); Potassium 4.5 mmol/L (3.5-5.1); Sodium Level 143 mmol/L (136-145)
[2022-06-24 12:19] VITALS: BP 124/80; PULSE 60; RESP 16; O2SAT 98
[2022-06-24 12:56] VITALS: BP 141/86; BP 143/93; BP 159/63; PULSE 59; PULSE 71
[2022-06-24 13:37] VITALS: BP 143/83; PULSE 58; RESP 18; O2SAT 99
== END 2022-06-24 13:39 | disposition home or self-care (01) ==
PROVIDERS: Physician Assistant; Emergency Provider Emergency Medicine; PCP Family Medicine; Visit Provider Emergency Medicine
DX: K92.2 Gastrointestinal hemorrhage, unspecified (principal); I10 Essential (primary) hypertension; I25.10 Atherosclerotic heart disease of native coronary artery without angina pectoris; Z79.899 Other long term (current) drug therapy; Z79.82 Long term (current) use of aspirin
CPT/HCPCS: 80048; 82274; 85025; 86850; 86900; 86901; 93005; 96374; 99284; J3490

== ENCOUNTER 2024-08-02 23:30 | Observation (INO) | payer OTHER, SELFPAY ==
[2024-08-02 23:32] VITALS: BP 95/70; PULSE 45; RESP 15; TEMP 36.5; O2SAT 94; BMI 25.7
--- NOTE | 2024-08-02 23:59 | RAD_ITS ---
PROCEDURE: CHEST 1 VIEW (PORTABLE) 08/03/2024 REASON FOR EXAM: SYNCOPE TECHNIQUE: Frontal view of the chest. COMPARISON: 11/27/2019. FINDINGS: The lungs are expanded. There is no demonstrated parenchymal abnormality. There is no demonstrated pleural abnormality. Enlarged cardiac silhouette. Normal mediastinum and zakia. Normal visualized pulmonary arteries. Atheromatous plaques of the visualized aortic arch and descending thoracic aorta. Diffuse spondylosis of the visualized thoracic spine. Normal visualized ribs, clavicles. Degenerative joint disease. There is no demonstrated abnormality of the visualized soft tissue structures of the upper abdomen. RAD/Chest 1 View (Portable) IMPRESSION: No evidence for acute abnormality. Reading Location: [place]
--- NOTE | 2024-08-02 23:59 | RAD_ITS ---
PROCEDURE: CHEST 1 VIEW (PORTABLE) 08/03/2024 REASON FOR EXAM: SYNCOPE TECHNIQUE: Frontal view of the chest. COMPARISON: 11/27/2019. FINDINGS: The lungs are expanded. There is no demonstrated parenchymal abnormality. There is no demonstrated pleural abnormality. Enlarged cardiac silhouette. Normal mediastinum and zakia. Normal visualized pulmonary arteries. Atheromatous plaques of the visualized aortic arch and descending thoracic aorta. Diffuse spondylosis of the visualized thoracic spine. Normal visualized ribs, clavicles. Degenerative joint disease. There is no demonstrated abnormality of the visualized soft tissue structures of the upper abdomen. RAD/Chest 1 View (Portable) IMPRESSION: No evidence for acute abnormality. Reading Location: [place]
[2024-08-03] VITALS (8 sets, daily range): BP systolic 125–162; BP diastolic 78–98; PULSE 44–76; RESP 8–18; TEMP 36.7–37.1; O2SAT 95–99; BMI 25.7; BMI 25.6
[2024-08-03] MEDS: 0.9% Normal Saline (1000mL) 1,000 ML 1000 ML IV (00:08)
--- NOTE | 2024-08-03 00:18 | EDS_ITS ---
HPI History of Present Illness Chief Complaint: Syncope Narrative Narrative: 74-year-old male past medical history of hypertension, on carvedilol, presents with syncopal episode this evening. He and his family relate history that he was not feeling well all day. He was around 10:00 in the morning where he did not feel well. He went about his day. This evening, he had a syncopal episode very briefly. He is feeling weak and tired and laid back on the bed. He denies any chest pain or shortness of breath. His family reports that he passed out on the bathroom floor for less than 2 minutes. He had nausea and vomiting as well. [facility] Medical History High platelet count CAD (coronary artery disease) Hypertension Angina of effort Home Medications ?Medication ?Instructions ?Recorded ?Last Taken ?Type acetaminophen 325 mg tablet 650 mg (2 x 325 mg) PO Q6H PRN PRN 11/28/19 Unknown Rx Pain Score 1-10/Temp > 100.7 F diltiazem HCl 180 mg 1 cap PO DAILY Check with pr imary 11/28/19 11/27/19 08:00 History capsule,extended release 24 hr doctor aspirin 81 mg tablet,delayed 81 mg PO DAILY 06/24/22 U nknown History release atorvastatin 40 mg tablet 40 mg PO DAILY 06/24/22 Unkn own History bupropion HCl 300 mg 24 hr tablet, 300 mg PO DAILY Unknown History extended release carvedilol 3.125 mg tablet 12.5 mg PO DAILY 06/24/22 U nknown History folic acid 1 mg tablet 1 mg PO DAILY 06/24/22 Unkno wn History losartan 50 mg tablet 50 mg PO DAILY 06/24/22 Unkn own History hydroxyurea 500 mg capsule 500 mg PO DAILY 08/03/24 Un known History Allergy/AdvReac Type Severity Reaction Status Date / Time No Known Allergies Allergy Verified 08/02/24 23:38 Social History Smoking Status: Never smoker ROS ROS ED ROS Narrative Review of systems positive for syncopal episode. Positive generalized weakness. Denies headache or chest pain. No exacerbating or alleviating factors. EXAM Physical Exam Narrative Exam Narrative: Afebrile. Vital signs noted. Nontoxic-appearing. Awake, alert, interactive. Cardiovascular examination reveals bradycardia in the 40s. Lungs are clear to auscultation bilaterally. Abdomen soft nontender without guarding or rebound. Neurological examination nonfocal, nonlateralizing. Const Vital Signs: 08/02/24 23:32 08/02/24 23:41 08/02/24 23:41 Temperature 97.7 F L Temperature Source Oral Pulse Rate 45 L Pulse Rate [Lying] Pulse Rate [Sitting (for 1 minute prior to obtaining)] Pulse Rate [Standing (for 1 minute prior to obtaining)] Respiratory Rate 15 Respiratory Effort Normal Non-Labored Normal Respiratory Depth Normal Respiratory Pattern Normal Normal Blood Pressure 95/70 Blood Pressure [Lying] Blood Pressure [Sitting (for 1 minute prior to obtaining)] Blood Pressure [Standing (for 1 minute prior to obtaining)] Blood Pressure Mean 78 Blood Pressure Mean [Lying] Blood Pressure Mean [Sitting (for 1 minute prior to obtaining)] Blood Pressure Mean [Standing (for 1 minute prior to obtaining)] Pulse Ox 94 Oxygen Delivery Method Room Air Room Air 08/03/24 00:48 08/03/24 00:59 08/03/24 01:02 Temperature Temperature Source Pulse Rate 46 L 54 L Pulse Rate [Lying] 44 L Pulse Rate [Sitting (for 1 minute prior to obtaining)] 46 L Pulse Rate [Standing (for 1 minute prior to obtaining)] 47 L Respiratory Rate 16 14 Respiratory Effort Respiratory Depth Respiratory Pattern Blood Pressure 137/88 H 126/85 H Blood Pressure [Lying] 125/83 H Blood Pressure [Sitting (for 1 minute prior to obtaining)] 136/90 H Blood Pressure [Standing (for 1 minute prior to obtaining)] 126/85 H Blood Pressure Mean 104 98 Blood Pressure Mean [Lying] 97 Blood Pressure Mean [Sitting (for 1 minute prior to obtaining)] 105 Blood Pressure Mean [Standing (for 1 minute prior to obtaining)] 98 Pulse Ox 98 99 Oxygen Delivery Method Room Air Room Air MDM MDM MDM Narrative Medical decision making narrative: Differential diagnosis includes but not limited to symptomatic bradycardia versus dehydration versus other electrolyte imbalance versus infectious process. I did consider orthostatics, however patient has low blood pressure of 95/70 initially. He will be bolused normal saline. Comprehensive workup was pursued. EKG was obtained and interpreted by myself independently as sinus bradycardia at 46 bpm without ectopy or acute ST changes. No STEMI. I reviewed his laboratory work and he is neutropenic at 4.3 which I think is nonspecific, hemoglobin 12.5 with hematocrit 36.6, platelet count 187. When compared to prior, it is normal. They do state that he takes hydroxyurea for the elevated platelets. CMP is remarkable for AST of 43 which I think is nonspecific, BUN of 18 and creatinine slightly elevated at 1.4, glucose of 108 with anion gap normal at 13, normal sodium, potassium, and chloride. Urinalysis is negative for infection in the sense that negative leukocytes and negative nitrites. There are 0-5 WBCs which is within normal limits. I sent it for culture. CT of the brain radiology report was reviewed and there were chronic changes and atrophy but no acute process. Chest x-ray in 1 view interpreted by myself independently shows no pneumonia or pneumothorax. I reviewed the radiology report which confirms my independent interpretation. At this point in time, upon repeat examination, patient states he feels the s will, and generally weak. His heart rate remains in the 40s, as low as 43 bpm. I do feel he is having symptomatic bradycardia. I do feel that he merits observation on the PCU for his symptomatic bradycardia. Patient discussed with Dr. Alcazar. Assigned observation in stable condition History & Record Review Discussion w/independent historian: Patient and Family Additional record(s) reviewed:: Prior labs Lab Data Attestation: I reviewed the patient's lab results. Labs: Laboratory Results - last 24 hr 08/02/24 08/03/24 23:00 00:45 WBC 4.3 L RBC 3.83 L Hgb 12.5 L Hct 36.6 L MCV 95.6 H MCH 32.6 H MCHC 34.2 RDW Std Deviation 59.7 H RDW Coeff of Christian 18.5 H Plt Count 187 MPV 10.6 Immature Gran % (Auto) 0.200 Neut % (Auto) 57.8 Lymph % (Auto) 21.7 [place] % (Auto) 18.5 H Eos % (Auto) 0.9 Baso % (Auto) 0.9 Absolute Neuts (auto) 2.5 Absolute Lymphs (auto) 0.93 Nucleated RBC % 0 Sodium 139 Potassium 3.4 Chloride 102 Carbon Dioxide 24.6 Anion Gap 13 BUN 18 Creatinine 1.40 H Estim Creat Clear Calc 47.81 L Est GFR (MDRD) Non-Af 52 L BUN/Creatinine Ratio 12.5 Glucose 108 H Calcium 9.2 Magnesium 2.1 Total Bilirubin 0.90 AST 43 H ALT 24 Alkaline Phosphatase 108 Total Protein 6.6 Albumin 3.8 Globulin 2.8 Albumin/Globulin Ratio 1.4 Urine Color Yellow Urine Clarity Clear Urine pH 6.0 Ur Specific [place] 1.015 Urine Protein 15 H Urine Glucose (UA) Normal Urine Ketones Negative Urine Occult Blood 25 H Urine Nitrite Negative Urine Bilirubin Negative Urine Urobilinogen Normal Ur Leukocyte Esterase Negative Urine RBC 0-5 SEEN Urine WBC 0-5 SEEN Ur Squamous Epith Cells 0-5 SEEN Amorphous Sediment 1+ Urine Bacteria 2+ Hyaline Casts 0-5 SEEN Urine Mucus 0 SEEN Radiography Diagnostic Testing: Clinical Impression(s) from Imaging Studies Chest X-Ray 08/02/24 23:59 IMPRESSION: No evidence for acute abnormality. Reading Location: [place] [id number] Management Discussion w/another healthcare provider: Hospitalist Discharge Plan Dx/Rx/DC Orders Clinical Impression: Syncope and collapse, Generalized weakness, Symptomatic bradycardia Disposition Disposition: Acute Care Hospital [facility] Discharge Date/Time: 08/03/24 02:33
--- NOTE | 2024-08-03 00:35 | EKG12_ITS ---
Test Reason : GEN ILL Blood Pressure : */* mmHG Vent. Rate : 46 BPM Atrial Rate : 46 BPM P-R Int : 158 ms QRS Dur : 136 ms QT Int : 526 ms P-R-T Axes : 44 -5 -9 degrees QTcB Int : 460 ms Sinus bradycardia Right bundle branch block Abnormal ECG Confirmed by Lance Garrett ([id number]), news assignment editor TANA MURPHY ([id number]) on 08/05/2024 11:36:27 AM Referred By: Confirmed By: Lance Garrett
--- NOTE | 2024-08-03 00:35 | EKG12_ITS ---
Test Reason : GEN ILL Blood Pressure : */* mmHG Vent. Rate : 46 BPM Atrial Rate : 46 BPM P-R Int : 158 ms QRS Dur : 136 ms QT Int : 526 ms P-R-T Axes : 44 -5 -9 degrees QTcB Int : 460 ms Sinus bradycardia Right bundle branch block Abnormal ECG Confirmed by Lance Garrett ([id number]), index editor TANA MURPHY ([id number]) on 08/05/2024 11:36:27 AM Referred By: Confirmed By: Lance Garrett
[2024-08-03 00:36] LABS: Absolute Lymphocyte Count 0.93 X10^3/uL (0.83-4.51); Absolute Neutrophil Count 2.5 X10^3/uL (2.0-7.7); Basophil# 0.04 X10^3/uL; Basophil% 0.9 % (0-1); Eosinophil# 0.04 X10^3/uL; Eosinophils% 0.9 % (0-5); Hematocrit 36.6 % (40-54); Hemoglobin 12.5 g/dL (13.0-16.5); Lymphocyte # 0.93 X10^3/ul (0.83-4.51); Lymphocyte % 21.7 % (19-41); Mean Corp Hgb Conc 34.2 g/dL (32-36); Mean Corpuscular Hgb 32.6 pg (27.0-32.0); Mean Corpuscular Volume 95.6 fL (80-94); Mean Platelet Vol. 10.6 fl (6.2-12.0); Monocyte# 0.79 X10^3/uL; Monocyte% 18.5 % (0-10); NRBC Flagged by Analyzer 0 % (0-5); Neutrophil # 2.47 X10^3/uL (2.7-7.7); Neutrophil % 57.8 % (47-70); Platelet Count 187 K/mm3 (150-450); RBC Distribution Width CV 18.5 % (11.6-14.6); RBC Distribution Width SD 59.7 fl (35.1-43.9); Red Blood Count 3.83 M/mm3 (4.6-6.2); White Blood Count 4.3 K/mm3 (4.4-11.0)
[2024-08-03 00:46] LABS: ALB/GLOB Ratio 1.4 RATIO (0.9-2.4); AST(SGOT) 43 U/L (<=37); Alanine Aminotransfer ALT/SGPT 24 U/L (<=46); Albumin, Serum 3.8 g/dL (3.4-4.8); Alkaline Phosphatase 108 U/L (40-129); Anion Gap 13 (5-15); BUN 18 mg/dL (4-19); BUN/Creat Ratio 12.5 RATIO (10-20); Calcium,Total 9.2 mg/dL (7.6-11.0); Carbon Dioxide 24.6 mmol/L (21.0-32.0); Chloride 102 mmol/L (98-108); EST Glomerular Filtration Rate 52 (>60); Estimated Creatinine Clearance 47.81 ml/min (50-250); Globulin 2.8 g/dL (2.2-4.2); Glucose 108 mg/dL (70-99); Potassium 3.4 mmol/L (3.3-5.1); Protein, Total 6.6 g/dL (5.9-8.4); Sodium Level 139 mmol/L (133-145)
[2024-08-03 00:54] LABS: Mucous, Urine 0 SEEN /hpf (<or=2+)
[2024-08-03 00:55] LABS: Color, Urine Yellow (Yellow); Glucose, Dipstick Normal (Normal); Ketone-Dipstick Negative (Negative); Leukocyte Esterase-Dipstick Negative /ul (Negative); Nitrite-Dipstick Negative (Negative); Occult Blood-Urine 25 /ul (Negative); Protein-Dipstick 15 mg/dl (Negative); Specific Gravity, Urine 1.015 (1.002-1.030); Urine Bilirubin Dipstick Negative (Negative); Urine Clarity Clear (Clear); Urine Urobilinogen Normal (Normal)
[2024-08-03 01:08] LABS: Red Blood Cells-Urine 0-5 SEEN /hpf (0-5); White Blood Cells 0-5 SEEN /hpf (0-5)
[2024-08-03 01:09] LABS: Amorphous Sediment 1+; Bacteria 2+ /hpf (None Seen); Hyaline Cast 0-5 SEEN /lpf (0-5); Squamous Epithelial Cells - UA 0-5 SEEN /hpf (0-5)
--- NOTE | 2024-08-03 01:32 | HP.PCM.HOS_ITS ---
[facility] - General General Date of Admission: 08/03/24 Date of Service: 08/03/24 Chief Complaint: Syncope. HPI Narrative HUSAM ROJAS, is a 74 Hindu Male with a past medical history of essential hypertension; on losartan, carvedilol and diltiazem, hyperlipidemia; on atorvastatin, CAD, history of thrombocytosis; recently started on hydroxyurea followed by Dr. Edwards, history of COVID-19, depression; on bupropion, GERD; on omeprazole and OA who presents to [facility] ER complaining of syncopal event. Mr. Rojas reports his symptoms began on the morning of August 02, 2024 after he woke up not feeling well around 10 AM but he was able to push through his day until this evening when he went to the bathroom and had a syncopal episode where he apparently passed out on his bathroom floor for less than ~2 minutes. He states he had been feeling generally weak weak and tired throughout the day. He also admits to associated nausea and vomiting with bilious emesis and severe fatigue and malaise which seems to have begun after recently starting hydroxyurea ~2 days ago. He denies similar side effects of bradycardia, fatigue or malaise previously. There was no report of associated fever, chills, visual changes, runny nose, sore throat, ear pain, chest pain, palpitations, heart racing, headache, dysuria, hematuria or rash. In the ER he was noted to have Severe Symptomatic Bradycardia of 44 bpm noted shortly after admission suspected to be due to Adverse Drug Reaction to AV-gary blocking agents with recently started hydroxyurea but otherwise unremarkable laboratory studies and imaging with CT scan of the head that revealed no acute intracranial abnormality and CXR that revealed no evidence for acute abnormality. He was then admitted to the PCU under observation status for ongoing care for stay that is expected to be less than 2 midnights. [facility] Medical History High platelet count CAD (coronary artery disease) Hypertension Angina of effort Home Medications ?Medication ?Instructions ?Recorded ?Last Taken ?Type acetaminophen 325 mg tablet 650 mg (2 x 325 mg) PO Q6H PRN PRN 11/28/19 Unknown Rx Pain Score 1-10/Temp > 100.7 F diltiazem HCl 180 mg 1 cap PO DAILY Check with pr imary 11/28/19 11/27/19 08:00 History capsule,extended release 24 hr doctor aspirin 81 mg tablet,delayed 81 mg PO DAILY 06/24/22 U nknown History release Held on 08/03/24. Instructions: Ordered atorvastatin 40 mg tablet 20 mg PO DAILY 06/24/22 Unkn own History bupropion HCl 300 mg 24 hr tablet, 300 mg PO DAILY Unknown History extended release carvedilol 3.125 mg tablet 12.5 mg PO DAILY 06/24/22 U nknown History folic acid 1 mg tablet 1 mg PO DAILY 06/24/22 Unkno wn History losartan 50 mg tablet 25 mg PO DAILY 06/24/22 Unkn own History hydroxyurea 500 mg capsule 500 mg PO DAILY 08/03/24 Un known History Allergy/AdvReac Type Severity Reaction Status Date / Time No Known Allergies Allergy Verified 08/02/24 23:38 Social History Smoking Status: Never smoker ROS ROS Narrative Review of systems: Constitutional: Patient with generalized weakness but he denies fever or chills. Eyes: Patient denies change in vision or discharge from eyes. ENT: Patient denies runny nose, sore throat or ear pain. Resp: Patient denies shortness of breath or cough. CV: Patient admits to syncopal episode but he denies chest pain, palpitations, heart racing or lower extremity edema. GI: Patient admits to nausea and vomiting with bilious emesis but he denies abdominal pain, diarrhea or constipation as per HPI. : Patient denies dysuria, hematuria or urinary frequency. MSK: Patient admits to generalized weakness but he denies arthralgias or myalgias. Skin: Patient denies rash, abscess, wounds or jaundice. Psych: Patient denies symptoms of uncontrolled depression or anxiety. Neuro: Patient denies headache, paresthesias or focal neurologic deficits. Allergy: Patient denies lip swelling, tongue swelling or urticaria. Hematology: Patient denies easy bleeding or easy bruisability. Endocrinology: Patient denies polyuria, polydipsia, polyphagia or heat/cold intolerance. 14 point ROS otherwise negative except for positives noted above in HPI. Vital Signs Vital Signs Vital Signs: 08/02/24 23:32 08/02/24 23:41 08/02/24 23:41 Temperature 97.7 F L Temperature Source Oral Pulse Rate 45 L Pulse Rate [Lying] Pulse Rate [Sitting (for 1 minute prior to obtaining)] Pulse Rate [Standing (for 1 minute prior to obtaining)] Respiratory Rate 15 Respiratory Effort Normal Non-Labored Normal Respiratory Depth Normal Respiratory Pattern Normal Normal Blood Pressure 95/70 Blood Pressure [Lying] Blood Pressure [Sitting (for 1 minute prior to obtaining)] Blood Pressure [Standing (for 1 minute prior to obtaining)] Blood Pressure Mean 78 Blood Pressure Mean [Lying] Blood Pressure Mean [Sitting (for 1 minute prior to obtaining)] Blood Pressure Mean [Standing (for 1 minute prior to obtaining)] Pulse Ox 94 Oxygen Delivery Method Room Air Room Air 08/03/24 00:48 08/03/24 00:59 08/03/24 01:02 Temperature Temperature Source Pulse Rate 46 L 54 L Pulse Rate [Lying] 44 L Pulse Rate [Sitting (for 1 minute prior to obtaining)] 46 L Pulse Rate [Standing (for 1 minute prior to obtaining)] 47 L Respiratory Rate 16 14 Respiratory Effort Respiratory Depth Respiratory Pattern Blood Pressure 137/88 H 126/85 H Blood Pressure [Lying] 125/83 H Blood Pressure [Sitting (for 1 minute prior to obtaining)] 136/90 H Blood Pressure [Standing (for 1 minute prior to obtaining)] 126/85 H Blood Pressure Mean 104 98 Blood Pressure Mean [Lying] 97 Blood Pressure Mean [Sitting (for 1 minute prior to obtaining)] 105 Blood Pressure Mean [Standing (for 1 minute prior to obtaining)] 98 Pulse Ox 98 99 Oxygen Delivery Method Room Air Room Air Weight Weight: 185 lb Body Mass Index (BMI) 25.7 Physical Exam Const alert, oriented x3, no apparent distress and average body habitus General Appearance: cooperative HEENT normocephalic, head/scalp atraumatic, hearing grossly normal bilaterally and moist oral mucous membranes Eyes PERRL and EOMs intact bilaterally Neck no lymphadenopathy, supple and no JVD Resp normal respiratory effort, no retractions, no use of accessory muscles and clear to auscultation bilaterally Cardio regular rate and regular rhythm GI normal to inspection, nondistended, normoactive bowel sounds, soft to palpation, non-tender and non-distended Extremity normal to inspection, full ROM and no clubbing, cyanosis or edema Skin Skin Narrative: Patient has evidence of rash, abscess, wounds or jaundice. Neuro oriented x3, CN's II-XII intact bilaterally, moves all extremities and no focal motor deficits Sensorium / Orientation: awake, alert, oriented to person, oriented to place and oriented to time Psych affect normal Results Medical Records Data Attestation: I reviewed the patient's medical records Lab / Micro Data Attestation: I reviewed the patient's lab results. 08/02/24 23:00 08/02/24 23:00 Labs: Laboratory Results - last 24 hr 08/02/24 23:00: WBC 4.3 L, RBC 3.83 L, Hgb 12.5 L, Hct 36.6 L, MCV 95.6 H, MCH 32.6 H, MCHC 34.2, RDW Std Deviation 59.7 H, RDW Coeff of Christian 18.5 H, Plt Count 187, MPV 10.6, Immature Gran % (Auto) 0.200, Neut % (Auto) 57.8, Lymph % (Auto) 21.7, Josephine % (Auto) 18.5 H, Eos % (Auto) 0.9, Baso % (Auto) 0.9, Absolute Neuts (auto) 2.5, Absolute Lymphs (auto) 0.93, Nucleated RBC % 0, Sodium 139, Potassium 3.4, Chloride 102, Carbon Dioxide 24.6, Anion Gap 13, BUN 18, C reatinine 1.40 H, Estim Creat Clear Calc 47.81 L, Est GFR (MDRD) Non-Af 52 L, BUN/Creatinine Ratio 12.5, Glucose 108 H, Calcium 9.2, Total Bilirubin 0.90, AST 43 H, ALT 24, Alkaline Phosphatase 108, Total Protein 6.6, Albumin 3.8, Globulin 2.8, Albumin/Globulin Ratio 1.4 08/03/24 00:45: Urine Color Yellow, Urine Clarity Clear, Urine pH 6.0, Ur Specific [place] 1.015, Urine Protein 15 H, Urine Glucose (UA) Normal, Urine Ketones Negative, Urine Occult Blood 25 H, Urine Nitrite Negative, Urine Bilirubin Negative, Urine Urobilinogen Normal, Ur Leukocyte Esterase Negative, Urine RBC 0-5 SEEN, Urine WBC 0-5 SEEN, Ur Squamous Epith Cells 0-5 SEEN, Amorphous Sediment 1+, Urine Bacteria 2+, Hyaline Casts 0-5 SEEN, Urine Mucus 0 SEEN Imaging Radiology Impression Chest X-Ray 08/02/24 23:59 IMPRESSION: No evidence for acute abnormality. Reading Location: [place] [address] 08/03/24 23:58 IMPRESSION: No CT evidence for acute brain abnormality. Reading Location: [place] [address] Assessment & Plan Assessment/Plan (1) Syncope and collapse: (2) Symptomatic bradycardia: (3) Adverse drug reaction: QUALIFIERS: Encounter type: initial encounter Qualified Code(s): T50.905A - Adverse effect of unspecified drugs, medicaments and biological substances, initial encounter (4) Generalized weakness: (5) Fatigue: QUALIFIERS: Fatigue type: unspecified Qualified Code(s): R53.83 - Other fatigue PLAN: Plan 1. Syncopal event with documented Severe Symptomatic Bradycardia of ~44 bpm - Admit to PCU under observation status. Check echocardiogram to evaluate LVEF. Check carotid Doppler to evaluate for stenosis. Gently volume resuscitate and hold AV gary blocking agents. Check TSH. Give ondansetron prn for nausea and vomiting. Give acetaminophen prn for pain or fever. 2. Adverse Drug Reaction to AV-gary blocking agents and recently started hydroxyurea likely causing #1 - Hold AV gary blocking agents till further notice. Patient is interested in cutting back his dose and/or frequency of hydroxyurea if Dr. Edwards is amenable. 3. Generalized Weakness and Fatigue due to #1 & #2 - PT/OT and Case Management to consult and treat on rounds in the AM for further recommendations with help appreciated in advance. 4. Essential hypertension; on losartan, carvedilol and diltiazem complicating #1 & #2 - Continue losartan as previous but hold carvedilol and diltiazem as noted in #2. 5. Hyperlipidemia; on atorvastatin - Hold statin in case of myotoxicity. 6. CAD - Stable. Serialize troponin. 7. History of thrombocytosis; recently started on hydroxyurea twice daily with adverse causing severe fatigue and malaise as outlined in HPI - Stable with platelet count of 187K present on admission. 8. History of COVID-19 - Noted. 9. Depression; on bupropion - Maintain current treatment. 10. GERD; on omeprazole - Resume PPI. 11. OA - Give acetaminophen prn as outlined in #1. 12. DVT prophylaxis - Enoxaparin 40 mg sq daily plus SCD's. Total time: Approximately (but not less than) 70 minutes. Charges/Coding Visit Charges OBSV E&M: 17104 Observ/hosp same date L2
[2024-08-03 02:06] LABS: Magnesium 2.1 mg/dL (1.5-2.2)
[2024-08-03] MEDS: 0.9% Normal Saline (1000mL) 1,000 ML 70 ML IV (03:13)
[2024-08-03 03:41] LABS: Absolute Lymphocyte Count 0.82 X10^3/uL (0.83-4.51); Absolute Neutrophil Count 2.7 X10^3/uL (2.0-7.7); Basophil# 0.02 X10^3/uL; Basophil% 0.5 % (0-1); Eosinophil# 0.03 X10^3/uL; Eosinophils% 0.7 % (0-5); Hematocrit 34.1 % (40-54); Hemoglobin 11.8 g/dL (13.0-16.5); Lymphocyte # 0.82 X10^3/ul (0.83-4.51); Lymphocyte % 19.5 % (19-41); Mean Corp Hgb Conc 34.6 g/dL (32-36); Mean Corpuscular Hgb 33.1 pg (27.0-32.0); Mean Corpuscular Volume 95.5 fL (80-94); Mean Platelet Vol. 10.3 fl (6.2-12.0); Monocyte# 0.62 X10^3/uL; Monocyte% 14.8 % (0-10); NRBC Flagged by Analyzer 0 % (0-5); Neutrophil # 2.69 X10^3/uL (2.7-7.7); Platelet Count 172 K/mm3 (150-450); RBC Distribution Width CV 18.5 % (11.6-14.6); RBC Distribution Width SD 61.8 fl (35.1-43.9); Red Blood Count 3.57 M/mm3 (4.6-6.2); White Blood Count 4.2 K/mm3 (4.4-11.0)
[2024-08-03 04:37] LABS: Troponin T High Sensitivity 36 ng/L (<=22)
[2024-08-03 04:59] LABS: ALB/GLOB Ratio 1.6 RATIO (0.9-2.4); AST(SGOT) 39 U/L (<=37); Alanine Aminotransfer ALT/SGPT 22 U/L (<=46); Albumin, Serum 3.7 g/dL (3.4-4.8); Alkaline Phosphatase 99 U/L (40-129); Anion Gap 11 (5-15); BUN 16 mg/dL (4-19); BUN/Creat Ratio 13.3 RATIO (10-20); Calcium,Total 8.9 mg/dL (7.6-11.0); Carbon Dioxide 25.4 mmol/L (21.0-32.0); Chloride 104 mmol/L (98-108); Creatinine, Serum 1.17 mg/dL (0.70-1.20); EST Glomerular Filtration Rate 65 (>60); Estimated Creatinine Clearance 57.21 ml/min (50-250); Globulin 2.3 g/dL (2.2-4.2); Glucose 112 mg/dL (70-99); Phosphorus 3.4 mg/dL (2.7-4.5); Potassium 3.2 mmol/L (3.3-5.1); Sodium Level 140 mmol/L (133-145); Total Bilirubin 0.79 mg/dL (0.00-1.30)
[2024-08-03 06:35] LABS: Troponin T High Sens 2 HR 33 ng/L (<=22)
[2024-08-03] MEDS: Potassium Chloride Oral Tablet 20 MEQ 60 MEQ PO (07:01)
[2024-08-03 08:30] LABS: Troponin T High Sens 4 HR 34 ng/L (<=22)
[2024-08-03] MEDS: Pantoprazole Sodium 40 MG Tablet PO (08:46)
[2024-08-03] MEDS: dexAMETHasone 4 MG Tablet 6 MG PO (08:46)
[2024-08-03] MEDS: buPROPion (XL) 300 MG TABLET.XL PO (08:46)
[2024-08-03] MEDS: Folic Acid 1 MG Tablet PO (08:46)
[2024-08-03] MEDS: Losartan Potassium 25 MG Tablet PO (09:25)
--- NOTE | 2024-08-03 09:29 | DCINST_ITS ---
Discharge Instructions Diet Discharge Diet: No restrictions DC O2, CPAP, BIPAP needs Home O2 Discharge instructions: No Dressing / Incision Discharge Activity: Return to Normal Activity Weight Bearing Status: Full weight bearing Follow Up Care Test Results: Test results from this visit will be discussed in further detail at your follow- up appointment, if applicable. Discharge Plan Admission Admit Date/Time: 08/03/24 01:44 Primary Reason for Your Visit: Syncope Attending Provider: Stanislaw Cunha Primary Care Provider: Stanislaw Singer Consulting Providers: Jasper Morrison Instructions Additional Instructions / Restrictions: Contact your oncologist to discuss your use of hydroxyurea Discharge Orders/Prescriptions Prescriptions: Continued diltiazem HCl 180 MG capsule,extended release 24hr 1 cap PO DAILY Patient Comments: TAKE 1 CAPSULE BY MOUTH ONCE DAILY acetaminophen 325 MG tablet 650 mg PO Q6H PRN PRN (Reason: Pain Score 1-10/Temp > 100.7 F) 0RF losartan 50 mg tablet 25 mg PO DAILY Patient Comments: TAKE 1 TABLET BY MOUTH ONCE DAILY atorvastatin 40 mg tablet 20 mg PO DAILY Patient Comments: TAKE 1 TABLET BY MOUTH ONCE DAILY AT BEDTIME aspirin 81 mg tablet,delayed release (DR/EC) 81 mg PO DAILY Patient Comments: TAKE 1 TABLET BY MOUTH ONCE DAILY folic acid 1 mg tablet 1 mg PO DAILY Patient Comments: TAKE 2 TABLETS BY MOUTH ONCE DAILY bupropion HCl 300 mg tablet extended release 24 hr 300 mg PO DAILY Patient Comments: TAKE 1 TABLET BY MOUTH ONCE DAILY Changed carvedilol 3.125 mg tablet 6.25 mg PO DAILY Qty: 1 0RF Patient Comments: TAKE 1 TABLET BY MOUTH TWICE DAILY Rx Instructions: Reduce carvedilol to 6.25 mg twice a day Held hydroxyurea 500 mg capsule 500 mg PO DAILY Hold Instructions: Discussed resuming this medication with your oncologist Referrals / Follow Up: Stanislaw Singer MD [Primary Care Provider] - Within 2 Weeks Disposition Disposition (needs filled in before D/C Order can be placed): Home, Self Care
--- NOTE | 2024-08-03 09:38 | PCM.DC.SUM ---
Providers Date of Admission: 08/03/24 Date of Discharge: 08/03/24 Primary Care Physician: Dr. Stanislaw Singer MD Reason For Visit: SYNCOPE LIKELY DUE TO ADVERSE DRUG RXN TO AV-KEYON Diagnosis Discharge Diagnosis (1) Syncope and collapse: Status: Acute Code(s): R55 - Syncope and collapse (2) Symptomatic bradycardia: Status: Acute Code(s): R00.1 - Bradycardia, unspecified (3) Adverse drug reaction: Status: Acute Code(s): T50.905A - Adverse effect of unspecified drugs, medicaments and biological substances, initial encounter Qualifiers: Encounter type: initial encounter Qualified Code(s): T50.905A - Adverse effect of unspecified drugs, medicaments and biological substances, initial encounter (4) Generalized weakness: Status: Acute Code(s): R53.1 - Weakness (5) Fatigue: Status: Acute Code(s): R53.83 - Other fatigue Qualifiers: Fatigue type: unspecified Qualified Code(s): R53.83 - Other fatigue Plan 1. Syncope secondary to bradycardia from carvedilol #2 essential hypertension #3 hyperlipidemia #4 thrombocytosis-chronic Medications at Discharge Home Medications acetaminophen 325 mg tablet 650 mg (2 x 325 mg) PO Q6H PRN PRN Pain Score 1-10/Temp > 100.7 F 11/28/19 diltiazem HCl 180 mg capsule,extended release 24 hr 1 cap PO DAILY Check with primary doctor 11/28/19 aspirin 81 mg tablet,delayed release 81 mg PO DAILY 06/24/22 atorvastatin 40 mg tablet 20 mg PO DAILY 06/24/22 bupropion HCl 300 mg 24 hr tablet, extended release 300 mg PO DAILY 06/24/22 folic acid 1 mg tablet 1 mg PO DAILY 06/24/22 losartan 50 mg tablet 25 mg PO DAILY 06/24/22 carvedilol 3.125 mg tablet 6.25 mg (2 x 3.125 mg) PO DAILY #1 TAB 08/03/24 hydroxyurea 500 mg capsule 500 mg PO DAILY 08/03/24 Held on 08/03/24. Instructions: Discussed resuming this medication with your oncologist Hospital Course Operations None Procedures None Summary of Care Provided Minutes Spent on Discharge: 30 Hospital Course: 74-year-old white male was seen in the emergency room at [facility] after having a brief syncopal episode at home when he was walking into his bathroom. Patient complained of generalized weakness, evaluation in the emergency room revealed his white blood cell count to be 4.3, hemoglobin was 12.5, chemistry profile was remarkable for a creatinine of 1.4. Patient initially was noted to be hypotensive but a short time later in the emergency room his blood pressure was normal. His heart rate was in the 40s in the emergency room, orthostatic blood pressures were obtained and they were not abnormal. Patient was placed in observation status on PCU and monitored on telemetry. His Cardizem and Coreg was held. Patient's pulse rate varied from the high 40s right after his arrival to PCU and just prior to discharge, his pulse rate was in the 50s and 60s. I had a discussion with the patient on 08/03/2024, he stated he had a recent echocardiogram this year which he stated was unremarkable. I did not feel the patient needed to remain in the hospital, his Coreg was reduced at the time of discharge, he was also instructed to resume his Cardizem. On 08/03/2024, patient was seen and examined: On examination he appeared in good health and spirits. Vital signs as documented. Skin warm and dry and without overt rashes. Neck without JVD, neck was supple, trachea midline, thyroid was normal. Lungs clear bilaterally, normal air movement was noted. Heart exam notable for regular rhythm, normal sounds and absence of murmurs, rubs or gallops. Abdomen unremarkable and without evidence of organomegaly, masses, or abdominal aortic enlargement. Bowel sounds are present, abdomen is not distended. Extremities nonedematous, no cyanosis was noted, no clubbing was noted. Neuro: Cranial nerves II through XII are grossly intact, no focal motor deficits were noted, sensation to light touch and pinprick intact, motor exam 5/5 throughout. Psych: Patient is alert and oriented x3, he does not appear anxious or depressed, he does not appear agitated. Patient was discharged home in stable condition on 08/03/2024 Weight / BMI Weight Weight: 83.4 kg Body Mass Index (BMI) 25.6 ABG / Lab / Microbiology Data 08/03/24 03:33 08/03/24 03:33 Laboratory: Laboratory Results - last 24 hr 08/03/24 07:40: Troponin T Hi Sens 4Hr 34 H Radiography Diagnostic Testing: Radiology Impression Chest X-Ray 08/02/24 23:59 IMPRESSION: No evidence for acute abnormality. Reading [facility] 08/03/24 23:58 IMPRESSION: No CT evidence for acute brain abnormality. Reading [facility] Instructions Discharge Diet: No restrictions Weight Bearing Status: Full weight bearing DC O2, CPAP, BIPAP Needs Home O2 Discharge instructions: No Meaningful Use Info Meaningful Use Meaningful Use Diagnoses (Choose all that apply): None applicable Ischemic Stroke Statin Dosing Therapy Reference: STATIN DOSE THERAPY REFERENCE: * Patients > 75 years receive moderate or high dose statin therapy. * Patients 75 years or YOUNGER should receive HIGH intensity statin dose unless contraindicated. You will be required to document reason for non-treatment if statin daily dose does not meet guidelines. HIGH DOSE STATIN THERAPY DAILY Atorvastatin > than or = to 40 mg Rosuvastatin > than or = to 20 mg Amlodipine + Atorvastatin > than or = to 2.5/40 mg Ezetimibe + Simvastatin 10/80 mg Simvastatin 80mg Discharge Plan Admission Admit Date/Time: 08/03/24 01:44 Primary Reason for Your Visit: Syncope Attending Provider: Stanislaw Cunha Primary Care Provider: Stanislaw Singer Consulting Providers: Jasper Morrison Instructions Additional Instructions / Restrictions: Contact your oncologist to discuss your use of hydroxyurea Discharge Orders/Prescriptions Prescriptions: Continued diltiazem HCl 180 MG capsule,extended release 24hr 1 cap PO DAILY Patient Comments: TAKE 1 CAPSULE BY MOUTH ONCE DAILY acetaminophen 325 MG tablet 650 mg PO Q6H PRN PRN (Reason: Pain Score 1-10/Temp > 100.7 F) 0RF losartan 50 mg tablet 25 mg PO DAILY Patient Comments: TAKE 1 TABLET BY MOUTH ONCE DAILY atorvastatin 40 mg tablet 20 mg PO DAILY Patient Comments: TAKE 1 TABLET BY MOUTH ONCE DAILY AT BEDTIME aspirin 81 mg tablet,delayed release (DR/EC) 81 mg PO DAILY Patient Comments: TAKE 1 TABLET BY MOUTH ONCE DAILY folic acid 1 mg tablet 1 mg PO DAILY Patient Comments: TAKE 2 TABLETS BY MOUTH ONCE DAILY bupropion HCl 300 mg tablet extended release 24 hr 300 mg PO DAILY Patient Comments: TAKE 1 TABLET BY MOUTH ONCE DAILY Changed carvedilol 3.125 mg tablet 6.25 mg PO DAILY Qty: 1 0RF Patient Comments: TAKE 1 TABLET BY MOUTH TWICE DAILY Rx Instructions: Reduce carvedilol to 6.25 mg twice a day Held hydroxyurea 500 mg capsule 500 mg PO DAILY Hold Instructions: Discussed resuming this medication with your oncologist Referrals / Follow Up: Stanislaw Singer MD [Primary Care Provider] - Within 2 Weeks Disposition Disposition (needs filled in before D/C Order can be placed): Home, Self Care Charges/Coding Visit Charges Inpatient E&M: 27977 Disch Hosp
--- NOTE | 2024-08-03 23:58 | CT_ITS ---
PROCEDURE: BRAIN/HEAD WITHOUT CONTRAST 08/03/2024 REASON FOR EXAM: SYNCOPE, DIZZINESS TECHNIQUE: BRAIN/HEAD WITHOUT CONTRAST Coronal and Sagittal reconstruction series were provided. One or more dose reduction techniques were used (e.g., Automated exposure control, adjustment of the mA and/or kV according to patient size, use of iterative reconstruction technique. RADIATION DOSE SUMMARY: CTDlvol: 44 mGy DLP: 779.9 mGycm COMPARISON: None. FINDINGS: Mild diffuse cortical atrophy, commensurate with the patient's age. Scattered hypodense foci in the periventricular and subcortical white matter suggestive of chronic ischemic white matter disease. Normal size of the ventricles and extra-axial spaces for the patient's age. Normal basal ganglia and thalami. Normal brainstem. Normal cerebellum. There is no demonstrated extra-axial, intraparenchymal, or intraventricular hemorrhage. There are no findings of an acute ischemic infarction. Normal calvarium. There is no demonstrated fracture. Normal soft tissue structures. Normal visualized paranasal sinuses. CT/Brain/Head without Contrast IMPRESSION: No CT evidence for acute brain abnormality. Reading Location[facility] [address]
--- NOTE | 2024-08-03 23:58 | CT_ITS ---
PROCEDURE: BRAIN/HEAD WITHOUT CONTRAST 08/03/2024 REASON FOR EXAM: SYNCOPE, DIZZINESS TECHNIQUE: BRAIN/HEAD WITHOUT CONTRAST Coronal and Sagittal reconstruction series were provided. One or more dose reduction techniques were used (e.g., Automated exposure control, adjustment of the mA and/or kV according to patient size, use of iterative reconstruction technique. RADIATION DOSE SUMMARY: CTDlvol: 44 mGy DLP: 779.9 mGycm COMPARISON: None. FINDINGS: Mild diffuse cortical atrophy, commensurate with the patient's age. Scattered hypodense foci in the periventricular and subcortical white matter suggestive of chronic ischemic white matter disease. Normal size of the ventricles and extra-axial spaces for the patient's age. Normal basal ganglia and thalami. Normal brainstem. Normal cerebellum. There is no demonstrated extra-axial, intraparenchymal, or intraventricular hemorrhage. There are no findings of an acute ischemic infarction. Normal calvarium. There is no demonstrated fracture. Normal soft tissue structures. Normal visualized paranasal sinuses. CT/Brain/Head without Contrast IMPRESSION: No CT evidence for acute brain abnormality. Reading [facility] [place] [address]
== END 2024-08-03 10:53 | disposition home or self-care (01) ==
LOC: ED 08-03 01:17 → PCU 08-03 01:59
PROVIDERS: Admitting Provider Internal Medicine; Emergency Provider Emergency Medicine; PCP Family Medicine; Visit Provider Internal Medicine
DX: R55 Syncope and collapse (principal); R00.1 Bradycardia, unspecified; I25.10 Atherosclerotic heart disease of native coronary artery without angina pectoris; Z86.16 Personal history of COVID-19; R11.2 Nausea with vomiting, unspecified; Z79.82 Long term (current) use of aspirin; R53.83 Other fatigue; R53.1 Weakness; I10 Essential (primary) hypertension; E78.5 Hyperlipidemia, unspecified; Z79.899 Other long term (current) drug therapy; D75.839 Thrombocytosis, unspecified; K21.9 Gastro-esophageal reflux disease without esophagitis; F32.A Depression, unspecified; M19.90 Unspecified osteoarthritis, unspecified site; T44.7X5A Adverse effect of beta-adrenoreceptor antagonists, initial encounter
CPT/HCPCS: 36415; 70450; 71045; 80053; 81001; 83735; 84100; 84443; 84484; 85025; 87086; 87088; 93005; 94668; 96360; 96361; 99221; 99285; A4216; G0378

== ENCOUNTER 2024-11-06 09:24 | Inpatient (IN) | payer OTHER, SELFPAY ==
[2024-11-06] VITALS (16 sets, daily range): BP systolic 82–140; BP diastolic 47–87; PULSE 49–72; RESP 9–18; TEMP 36.6–36.8; O2SAT 93–99; BMI 26.4; BMI 26.2
--- NOTE | 2024-11-06 09:30 | EX.ED.DYSGE1 ---
HPI History of Present Illness Chief Complaint: Dizziness Informant: patient Onset/Context/Timing Onset: Today Context: Gradual Onset Timing: Continuous Quality: Off balance Location: Generalized Worsened by: Activity, movement Relieved by: Laying down Narrative Narrative: Patient presents with dizziness that began today. Patient states that it was gradual gotten worse. Patient states he feels like he is off balance. Patient states that it is worse with any movement or activity. Patient states it is better when he is able to lay down. Patient admits to some nausea and vomiting. Patient denies any headaches. Patient denies any hearing changes or tinnitus. Patient denies any visual changes. Patient denies any chest pain or shortness of breath. Patient has had a recent cough. [facility] Medical History Other abnormal clinical finding Fatigue Generalized weakness Adverse drug reaction Symptomatic bradycardia Generalized weakness Syncope and collapse High platelet count CAD (coronary artery disease) Hypertension Angina of effort Home Medications Medication Instructions Recorded Last Taken Type diltiazem HCl 180 mg 1 cap PO DAILY Check with primary 11/28/19 11/06/24 History capsule,extended release 24 hr doctor aspirin 81 mg tablet,delayed 81 mg PO DAILY 06/24/22 11/06/24 History release atorvastatin 40 mg tablet 20 mg PO DAILY 06/24/22 11/05/24 History bupropion HCl 300 mg 24 hr tablet, 300 mg PO DAILY 06/24/22 11/06/24 History extended release folic acid 1 mg tablet 2 mg PO DAILY 06/24/22 11/06/24 History losartan 50 mg tablet 25 mg PO DAILY 06/24/22 11/06/24 History carvedilol 3.125 mg tablet 6.25 mg (2 x 3.125 mg) PO DAILY #1 08/03/24 11/06/24 Rx TAB hydroxyurea 500 mg capsule 500 mg PO DAILY 08/03/24 11/05/24 History Allergy/AdvReac Type Severity Reaction Status Date / Time No Known Allergies Allergy Verified 11/06/24 09:30 Surgical History S/P ORIF (open reduction internal fixation) fracture Social History Smoking Status: Never smoker ROS ROS ED Constitutional Constitutional ED: Denies chills or fever(s) Eyes Eyes: Denies blurry vision or change in vision ENT ENT ED: Denies ear pain, rhinorrhea or sore throat Cardiovascular Cardiovascular: Denies chest pain or palpitations Respiratory/Chest Respiratory/Chest: Reports cough; Denies dyspnea Gastrointestinal Gastrointestinal: Reports nausea and vomiting Genitourinary Genitourinary ED: Denies dysuria or hematuria Musculoskeletal Musculoskeletal: Denies back pain or neck pain Integumentary Denies abscess or rash Neurologic Neurologic: Denies headache(s) or weakness Allergic/Immunologic Allergic/Immunologic ED: Denies mouth swelling or urticaria EXAM Physical Exam Const Vital Signs: 11/06/24 09:25 11/06/24 10:05 11/06/24 11:25 Temperature 98 F Temperature Source Oral Pulse Rate 57 L 57 L Pulse Rate [Lying] 57 L Pulse Rate [Sitting (for 1 minute prior to obtaining)] 61 Pulse Rate [Standing (for 1 minute prior to obtaining)] 61 Respiratory Rate 9 L 18 Blood Pressure 82/47 L 126/84 H Blood Pressure [Lying] 102/68 Blood Pressure [Sitting (for 1 minute prior to obtaining)] 111/70 Blood Pressure [Standing (for 1 minute prior to obtaining)] 91/75 Blood Pressure Mean 58 98 Blood Pressure Mean [Lying] 79 Blood Pressure Mean [Sitting (for 1 minute prior to obtaining)] 83 Blood Pressure Mean [Standing (for 1 minute prior to obtaining)] 80 Pulse Ox 97 97 Oxygen Delivery Method Room Air Room Air Positive well nourished and well developed General Appearance ED: well developed and NAD HEENT Reports moist mucous membranes Negative for trauma Eyes PERRL and EOMs intact bilaterally Eyes Narrative: There is mild nystagmus with right lateral gaze. Neck supple and no JVD Resp normal respiratory effort and clear to auscultation bilaterally Cardio regular rate and regular rhythm GI non-tender and non-distended Palpation: soft Extremity normal to inspection General Extremety ED: Negative for edema or tenderness General Extremity: Negative for edema Neuro oriented x3, CN's II-XII intact bilaterally and no sensory deficits noted Sensorium / Orientation: alert Motor Exam: strength 5/5 throughout Psych mental status grossly normal MDM MDM MDM Narrative Medical decision making narrative: Differential diagnosis includes vertigo, labyrinthitis, dehydration, electrolyte abnormality, cardiac dysrhythmia, cardiac ischemia, intracranial bleeding, stroke, urinary tract infection, sepsis, pneumonia, bronchitis, and viral illness. EKG will be obtained to assess for cardiac dysrhythmia and cardiac ischemia. CT scan of the brain will be obtained to assess for intracranial bleeding and stroke. Chest x-ray will be obtained to assess for pneumonia or bronchitis. CBC will be obtained to assess for leukocytosis and anemia. Basic metabolic profile will be obtained to assess for electrolyte abnormality and renal function. High-sensitivity troponin will be obtained to assess for cardiac ischemia. 2-hour repeat high-sensitivity troponin will be obtained to assess for ongoing cardiac ischemia. Serum lactate will be obtained to assess for sepsis. Urinalysis will be obtained to assess for urinary tract infection and hematuria. COVID-19, influenza, and RSV PCR will be obtained to assess for viral illness. Orthostatic vital signs will be obtained to assess for dehydration and hypovolemia. History & Record Review Additional record(s) reviewed:: Prior inpatient record, Prior ED visit and Prior labs Lab Data Attestation: I reviewed the patient's lab results. Lab results narrative: CBC was reviewed. There is a mild leukocytosis of 11.1. Hemoglobin was slightly low at 12.0 and hematocrit was 35.9. Basic metabolic profile was reviewed. CO2 was slightly low at 18 and anion gap was slightly elevated at 16. The remainder is within normal limits. Serum lactate was reviewed and was normal at 1.0. Initial high-sensitivity troponin was reviewed and was elevated at 309. Urinalysis was reviewed. There is no evidence of urinary tract infection or hematuria. Labs: Laboratory Results - last 24 hr 11/05/24 11/06/24 11/06/24 16:12 09:32 09:43 WBC 11.1 H RBC 3.22 L Hgb 12.0 L Hct 35.9 L MCV 111.5 H MCH 37.3 H MCHC 33.4 RDW Std Deviation 63.5 H RDW Coeff of Christian 15.4 H Plt Count 406 MPV 9.6 Immature Gran % (Auto) 0.700 Neut % (Auto) 71.1 H Lymph % (Auto) 9.4 L [place] % (Auto) 13.8 H Eos % (Auto) 4.6 Baso % (Auto) 0.4 Absolute Neuts (auto) 7.9 H Absolute Lymphs (auto) 1.04 Nucleated RBC % 0 Sodium 136 Potassium 4.5 Chloride 103 Carbon Dioxide 18.0 L Anion Gap 16 H BUN 19 Creatinine 1.19 Estim Creat Clear Calc 56.25 Est GFR (MDRD) Non-Af 63 BUN/Creatinine Ratio 16.3 Glucose 101 H Hemoglobin A1c 5.5 Lactic Acid Calcium 8.2 Troponin T High Sens 309 H* D Troponin T Hi Sens 2 Hr Urine Color Urine Clarity Urine pH Ur Specific [place] Urine Protein Urine Glucose (UA) Urine Ketones Urine Occult Blood Urine Nitrite Urine Bilirubin Urine Urobilinogen Ur Leukocyte Esterase Urine RBC Urine WBC Ur Squamous Epith Cells Urine Bacteria Urine Mucus Hepatitis C Antibody Cancelled 11/06/24 11/06/24 11/06/24 10:00 10:17 11:25 WBC RBC Hgb Hct MCV MCH MCHC RDW Std Deviation RDW Coeff of Christian Plt Count MPV Immature Gran % (Auto) Neut % (Auto) Lymph % (Auto) [place] % (Auto) Eos % (Auto) Baso % (Auto) Absolute Neuts (auto) Absolute Lymphs (auto) Nucleated RBC % Sodium Potassium Chloride Carbon Dioxide Anion Gap BUN Creatinine Estim Creat Clear Calc Est GFR (MDRD) Non-Af BUN/Creatinine Ratio Glucose Hemoglobin A1c Lactic Acid 1.0 Calcium Troponin T High Sens Troponin T Hi Sens 2 Hr 281 H* Urine Color Yellow Urine Clarity Clear Urine pH 6.0 Ur Specific [place] 1.015 Urine Protein 15 H Urine Glucose (UA) Normal Urine Ketones Negative Urine Occult Blood 10 H Urine Nitrite Negative Urine Bilirubin Negative Urine Urobilinogen Normal Ur Leukocyte Esterase Negative Urine RBC 0 SEEN Urine WBC 0 SEEN Ur Squamous Epith Cells 0 SEEN Urine Bacteria 1+ Urine Mucus 0 SEEN Hepatitis C Antibody Radiography Chest X-Ray - ED: 1 View, Read by ED Physician, Read by Radiologist and No Acute Disease Diagnostic Testing: Clinical Impression(s) from Imaging Studies Brain CT 11/06/24 09:43 IMPRESSION: No acute intracranial abnormalities. Reading Location: [facility] Chest X-Ray 11/06/24 09:54 IMPRESSION: The cardiomediastinal silhouette is stable, with a tortuous aorta noted. No evidence of cardiomegaly. 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 Minimal areas of linear scarring or discoid atelectasis are seen in the right lower lung. Lungs otherwise appear clear of acute disease. No pleural effusion or pneumothorax is noted. No interval osseous change is seen. Reading Location: [address] scan of the brain was obtained. There is no acute intracranial abnormality. This was interpreted by the radiologist and was also independently reviewed by myself. Portable 1 view chest x-ray was obtained. On my independent interpretation, lung segal shows areas of atelectasis in the right lower lobe. There is normal cardiac silhouette. Bony thorax is normal. There is no acute process noted. Radiologist also interpreted the x-ray and agrees. EKG Initial EKG: Attestation: I personally reviewed and interpreted this EKG as follows: Interpretation: Sinus Bradycardia (56), RBBB and S-T Depression (V2, V3) Comments: EKG was obtained. On my independent interpretation, shows a sinus bradycardia with a rate of 56. [place] interval was normal at 160 ms. QRS interval was slightly prolonged at 130 ms. QTc interval was normal at 428 ms. [place] was normal. There is right bundle branch block pattern noted. There is mild ST depression in leads V2 and V3. Prior EKG tracings: available for review Prior: Changed (The ST depression in leads V2 is new compared to previous EKG dated 08/03/2024.) Management Discussion w/another healthcare provider: Hospitalist (Dr. Mcbride) and Supervisor Detasseling Crew (Dr. Garrett) Treatment and Re-Evaluation :: Patient was given IV fluids. Patient was given a dose of meclizine. Patient was given aspirin. Orthostatic vital signs were obtained and were essentially within normal limits. Case was discussed with Dr. Garrett. He recommended starting the patient on heparin. He recommended admission to the hospital for possible heart catheterization. Patient understands and is agreeable with the plan. All questions were answered. Case was discussed with the hospitalist. She will admit the patient to her service. Critical Care Time Critical Care Time: Yes Critical care time (excluding procedures): 30-74 minutes (34), Including time spent:, Discussing w/Patient &/or Family/Airfreight Operations Agent, Discussing w/Consultants, Arranging Admission or Transfer and Performing Direct Patient Care at Bedside Discharge Plan Dx/Rx/DC Orders Clinical Impression: Non-STEMI (non-ST elevated myocardial infarction), Hypertension, CAD (coronary artery disease) Disposition Disposition: Acute Care Hospital [facility] Discharge Date/Time: 11/06/24 12:55
[2024-11-06] MEDS: 0.9% Normal Saline (1000mL) 1,000 ML 1000 ML IV (09:38)
--- NOTE | 2024-11-06 09:43 | CT_ITS ---
PROCEDURE: BRAIN/HEAD WITHOUT CONTRAST 11/06/2024 REASON FOR EXAM: DIZZINESS TECHNIQUE: Procedure Code: CTBR Modality: CT Procedure: BRAIN/HEAD WITHOUT CONTRAST Coronal and Sagittal reconstruction series were provided. One or more dose reduction techniques were used (e.g., Automated exposure control, adjustment of the mA and/or kV according to patient size, use of iterative reconstruction technique. RADIATION DOSE SUMMARY: CTDlvol: 44.99 mGy DLP: 779.24 mGycm COMPARISON: None. FINDINGS: Brain: Extensive low density in the deep cerebral white matter most likely represents advanced chronic small vessel ischemic disease. No acute territorial infarction. No mass-effect or midline shift. No acute orbital abnormalities. The craniocervical junction is unremarkable. No ventriculomegaly. CSF Spaces: Unremarkable. Sinuses/Mastoids: Clear. Bones: No acute bony abnormalities. CT/Brain/Head without Contrast IMPRESSION: No acute intracranial abnormalities. Reading Location: [id number]
--- NOTE | 2024-11-06 09:44 | EKG12_ITS ---
Test Reason : Blood Pressure : */* mmHG Vent. Rate : 56 BPM Atrial Rate : 56 BPM P-R Int : 160 ms QRS Dur : 130 ms QT Int : 444 ms P-R-T Axes : 51 15 10 degrees QTcB Int : 428 ms Sinus bradycardia Right bundle branch block Abnormal ECG Confirmed by Lance Garrett ([id number]), editor house organ RUBY RYDER ([id number]) on 11/07/2024 5:49:05 AM Referred By: Katty Mcbride Confirmed By: Lance Garrett
[2024-11-06 09:54] LABS: Hematocrit 35.9 % (40-54); Hemoglobin 12.0 g/dL (13.0-16.5); Immature Granulocytes Count 0.080 X10^3/uL (0.0-0.0); Mean Corp Hgb Conc 33.4 g/dL (32-36); Mean Corpuscular Volume 111.5 fL (80-94); Mean Platelet Vol. 9.6 fl (6.2-12.0); NRBC Flagged by Analyzer 0 % (0-5); POSITIVE DIFFERENTIAL YES; Platelet Count 406 K/mm3 (150-450); RBC Distribution Width CV 15.4 % (11.6-14.6); RBC Distribution Width SD 63.5 fl (35.1-43.9); Red Blood Count 3.22 M/mm3 (4.6-6.2); White Blood Count 11.1 K/mm3 (4.4-11.0)
--- NOTE | 2024-11-06 09:54 | RAD_ITS ---
PROCEDURE: CHEST 1 VIEW (PORTABLE) 11/06/2024 REASON FOR EXAM: DIZZINESS TECHNIQUE: Frontal view of the chest. COMPARISON: AP chest of 08/03/2024. RAD/Chest 1 View (Portable) IMPRESSION: The cardiomediastinal silhouette is stable, with a tortuous aorta noted. No ev idence of cardiomegaly. 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 Minimal areas of linear scarring or discoid atelectasis are seen in the right l ower lung. Lungs otherwise appear clear of acute disease. No pleural effusion or pneumothorax is noted. No interval osseous change is seen. Reading Location: [id number]
[2024-11-06 09:55] LABS: Differential Indicated SCAN CRITERIA MET
[2024-11-06 10:20] LABS: Anion Gap 16 (5-15); BUN 19 mg/dL (4-19); BUN/Creat Ratio 16.3 RATIO (10-20); Calcium,Total 8.2 mg/dL (7.6-11.0); Carbon Dioxide 18.0 mmol/L (21.0-32.0); Chloride 103 mmol/L (98-108); Estimated Creatinine Clearance 56.25 ml/min (50-250); Glucose 101 mg/dL (70-99); Potassium 4.5 mmol/L (3.3-5.1); Troponin T High Sensitivity 309 ng/L (<=22)
[2024-11-06 10:25] LABS: Mucous, Urine 0 SEEN /hpf (<or=2+); Red Blood Cells-Urine 0 SEEN /hpf (0-5); Squamous Epithelial Cells - UA 0 SEEN /hpf (0-5)
[2024-11-06 11:04] LABS: Color, Urine Yellow (Yellow); Glucose, Dipstick Normal (Normal); Ketone-Dipstick Negative (Negative); Leukocyte Esterase-Dipstick Negative /ul (Negative); Nitrite-Dipstick Negative (Negative); Occult Blood-Urine 10 /ul (Negative); Protein-Dipstick 15 mg/dl (Negative); Specific Gravity, Urine 1.015 (1.002-1.030); Urine Bilirubin Dipstick Negative (Negative)
[2024-11-06] MEDS: Heparin Injection (Vial) 5,000 UNIT/ML VIAL 4000 UNIT IV (11:20)
[2024-11-06] MEDS: HEPARIN/D5w 25,000 UNITS 25,000 UNITS/250 ML IV.SOLN. 10.3 UNITS CONT INF (11:24)
--- NOTE | 2024-11-06 11:31 | CON.PCM.CA_ITS ---
Assessment & Plan Assessment/Plan (1) Non-STEMI (non-ST elevated myocardial infarction): PLAN: Patient presents with a history of nausea and vomiting associated with dizziness and elevated troponins at 309 with hypotension. His ECG shows new ST segment depression and chronic right bundle branch block in his anterior septal leads. The ST depressions are more prominent than on the July 2024 ECG. Given the patient's presumed history of medically treated coronary artery disease, elevated troponins, the nausea vomiting and hypotension, and his ECG showing the subtle changes I recommend the patient proceed with urgent left heart catheterization. The procedure risk/benefit and alternatives were explained to the patient and his son and they voiced understanding and agreed to proceed. (2) Hypertension: QUALIFIERS: Hypertension type: primary hypertension Qualified Code(s): I10 - Essential (primary) hypertension PLAN: Blood pressure was low upon presentation it is currently normalized after IV fluids. (3) High platelet count: PLAN: Patient carries a history of thrombocytosis he is currently being treated with hydroxyurea. PLAN: Plan 1. Recommend urgent left heart catheterization today. Dr. Duran to perform. 2. Will follow-up with further recommendations once results of the catheter are available. HPI Consult Data Date of Consult: 11/06/24 HPI Narrative Reason for Consultation: Acute coronary syndrome HPI Narrative: HUSAM BARROW, is a 74 M who presents with a sudden onset of nausea with vomiting and dizziness and feeling off balance this morning. The patient presented to the emergency department with a blood pressure 82/47 and received fluids his blood pressure is 125/70. Heart rate is in the 55-60 bpm range in sinus rhythm. Original ECG shows there is chronic right bundle branch block with ST depression in V2 through V4. Initial troponin was 309. The patient carries a history of bradycardia and had been hospitalized back in July 2024 with syncope/near syncope and had his carvedilol discontinued. It was reinstituted at some point in time and he is now back on carvedilol. The patient carries a history of thrombocytosis and is on hydroxyurea. He also has a history of hypertension and is treated with a combination of carvedilol diltiazem and losartan. The patient reports that he had a left heart catheterization done December 2023 in [place]. 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 That catheterization did not show anything of any significance apparently it was done after an abnormal stress test which was done because of his progressive fatigue. Most of the information is obtained from the patient and his son who is his power of cosmetic maker. The patient carries a history of 26 years ago having some angina damage to his heart as a way he describes it. He has never had a stent or bypass surgery but he has had at least 2 heart catheterizations that resulted in no interventions by his report. The patient is on aspirin and atorvastatin. Currently the patient is asymptomatic lying on the gurney in the emergency department. [facility] Medical History Fatigue Generalized weakness Adverse drug reaction Symptomatic bradycardia Generalized weakness Syncope and collapse High platelet count CAD (coronary artery disease) Hypertension Angina of effort Home Medications Medication Instructions Recorded Last Taken Type diltiazem HCl 180 mg 1 cap PO DAILY Check with pr imary 11/28/19 11/27/19 08:00 History capsule,extended release 24 hr doctor aspirin 81 mg tablet,delayed 81 mg PO DAILY 06/24/22 U nknown History release atorvastatin 40 mg tablet 20 mg PO DAILY 06/24/22 Unkn own History bupropion HCl 300 mg 24 hr tablet, 300 mg PO DAILY Unknown History extended release folic acid 1 mg tablet 1 mg PO DAILY 06/24/22 Unkno wn History losartan 50 mg tablet 25 mg PO DAILY 06/24/22 Unkn own History carvedilol 3.125 mg tablet 6.25 mg (2 x 3.125 mg) PO D AILY #1 08/03/24 Unknown Rx TAB hydroxyurea 500 mg capsule 500 mg PO DAILY 08/03/24 Un known History Allergy/AdvReac Type Severity Reaction Status Date / Time No Known Allergies Allergy Verified 11/06/24 09:30 Surgical History S/P ORIF (open reduction internal fixation) fracture Social History Smoking Status: Never smoker ROS Constitutional Constitutional: Reports as per HPI Eyes Eyes: Reports systems reviewed and no addt'l complaints, except as documented ENT HEENT: Reports systems reviewed and no addt'l complaints, except as documented Cardiovascular Cardiovascular: Reports as per HPI Respiratory/Chest Respiratory/Chest: Reports as per HPI Gastrointestinal Gastrointestinal: Reports as per HPI Genitourinary Genitourinary: Reports systems reviewed and no addt'l complaints, except as documented Musculoskeletal Musculoskeletal: Reports systems reviewed and no addt'l complaints, except as documented Integumentary Integumentary: Reports systems reviewed and no addt'l complaints, except as documented Neurologic Neurologic: Reports systems reviewed and no addt'l complaints, except as documented Psychiatric Psychiatric: Reports systems reviewed and no addt'l complaints, except as documented Endocrine Endocrinology: Reports systems reviewed and no addt'l complaints, except as documented Hematologic/Lymphatic Hematologic/Lymphatic: Reports as per HPI Allergic/Immunologic Allergic/Immunologic: Reports systems reviewed and no addt'l complaints, except as documented Physical Exam Const alert and oriented x3 HEENT normocephalic Eyes EOMs intact bilaterally Neck no JVD and no carotid bruits Chest inspection of chest normal Resp normal respiratory effort and clear to auscultation bilaterally Cardio Rate: regular rate Rhythm: regular rhythm Heart Sounds: S1 normal and S2 normal; Negative for click, gallop or murmur Peripheral Pulses: radial pulses present bilateral 2+ and femoral pulses present bilateral 2+ GI normal to inspection, nondistended, normoactive bowel sounds Extremity no pedal edema Neuro Neuro Narrative: Alert and oriented x 3 Psych mental status grossly normal Charges/Coding Visit Charges Inpatient E&M: 57274 Init Hosp L2 Objective Data Vital Signs: Vital Signs Temp Pulse Resp BP Pulse Ox O2 Del Method 98 F 57 L 18 126/84 H 97 Room Air 11/06/24 09:25 11/06/24 11:25 11/06/24 11:25 11/06/24 11:25 11/06/24 11:25 11/06/24 11:25 Oxygen Delivery Method Room Air Weight: 189 lb 6.033 oz Body Mass Index (BMI) 26.4 Intake & Output: Intake and Output for Last 24 Hours 11/04/24 11/05/24 11/06/24 23:59 23:59 23:59 Intake Total 600 / 600 Balance 600 / 600 Lab / Micro Data Attestation: I reviewed the patient's lab results. 11/06/24 09:32 11/06/24 09:32 Labs: Laboratory Results - last 24 hr 11/06/24 09:32: WBC 11.1 H, RBC 3.22 L, Hgb 12.0 L, Hct 35.9 L, MCV 111.5 H, MCH 37.3 H, MCHC 33.4, RDW Std Deviation 63.5 H, RDW Coeff of Christian 15.4 H, Plt Count 406, MPV 9.6, Immature Gran % (Auto) 0.700, Neut % (Auto) 71.1 H, Lymph % (Auto) 9.4 L, [place] % (Auto) 13.8 H, Eos % (Auto) 4.6, Baso % (Auto) 0.4, Absolute Neuts (auto) 7.9 H, Absolute Lymphs (auto) 1.04, Nucleated RBC % 0, Sodium 136, Potassium 4.5, Chloride 103, Carbon Dioxide 18.0 L, Anion Gap 16 H, BUN 19, Creatinine 1.19, Estim Creat Clear Calc 56.25, Est GFR (MDRD) Non-Af 63, BUN/Creatinine Ratio 16.3, Glucose 101 H, Calcium 8.2, Troponin T High Sens 309 H* D 11/06/24 10:00: Lactic Acid 1.0 11/06/24 10:17: Urine Color Yellow, Urine Clarity Clear, Urine pH 6.0, Ur Specific [place] 1.015, Urine Protein 15 H, Urine Glucose (UA) Normal, Urine Ketones Negative, Urine Occult Blood 10 H, Urine Nitrite Negative, Urine Bilirubin Negative, Urine Urobilinogen Normal, Ur Leukocyte Esterase Negative, Urine RBC 0 SEEN, Urine WBC 0 SEEN, Ur Squamous Epith Cells 0 SEEN, Urine Bacteria 1+, Urine Mucus 0 SEEN Micro: Microbiology 11/06/24 10:00 Mucosa - Nose SARS-CoV-2, Influenza & RSV (PCR) - Final Rhythm Strip Rhythm Strip: Sinus Rhythm Rate: 59 Cardiology Labs/Tests 11/06/24 09:32: WBC 11.1 H, RBC 3.22 L, Hgb 12.0 L, Hct 35.9 L, MCV 111.5 H, MCH 37.3 H, MCHC 33.4, Plt Count 406, MPV 9.6, Immature Gran % (Auto) 0.700, Neut % (Auto) 71.1 H, Lymph % (Auto) 9.4 L, [place] % (Auto) 13.8 H, Eos % (Auto) 4.6, Baso % (Auto) 0.4, Absolute Neuts (auto) 7.9 H, Nucleated RBC % 0, Sodium 136, Potassium 4.5, Chloride 103, Carbon Dioxide 18.0 L, Anion Gap 16 H, BUN 19, Creatinine 1.19, Est GFR (MDRD) Non-Af 63, BUN/Creatinine Ratio 16.3, Glucose 101 H, Calcium 8.2 11/06/24 10:00: Lactic Acid 1.0 11/06/24 10:17: Urine Color Yellow, Urine Clarity Clear, Urine pH 6.0, Ur Specific [place] 1.015, Urine Protein 15 H, Urine Glucose (UA) Normal, Urine Ketones Negative, Urine Occult Blood 10 H, Urine Nitrite Negative, Urine Bilirubin Negative, Urine Urobilinogen Normal, Ur Leukocyte Esterase Negative, Urine RBC 0 SEEN, Urine WBC 0 SEEN Rhythm: EKG: ECHO: Stress Test: Cardiac Cath: PCI: CT Surgery: Holter monitor: EPS: PPM: CXR: Chest CT Scan: Radiography Diagnostic Testing: Radiology Impression Brain CT 11/06/24 09:43 IMPRESSION: No acute intracranial abnormalities. Reading Location: [facility] Chest X-Ray 11/06/24 09:54 IMPRESSION: The cardiomediastinal silhouette is stable, with a tortuous aorta noted. No evidence of cardiomegaly. 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 Minimal areas of linear scarring or discoid atelectasis are seen in the right lower lung. Lungs otherwise appear clear of acute disease. No pleural effusion or pneumothorax is noted. No interval osseous change is seen. Reading Location: [id number] Risk Score for UA/STEMI Assesmment (YES = 1) Risk Stratification Applicable: Yes Age > or = 65: Yes > or = 3 CAD risk factors (HTN, Hypercholesterolemia, Diabetes, family hx, current smoker): No Known CAD (Stenosis > or = 50%): No ASA used in past 7 days: Yes Severe angina (> or = 2 episodes in 24 hrs): No EKG ST change > or = 0.5mm: Yes Positive cardiac markers: Yes Score MUKUND Risk Score of mortality/ recurrent ischemic event over the next 14 days: 4 = 19.9% - Intermediate
[2024-11-06] MEDS: TICAGRELOR 90 MG TABLET 180 MG PO (11:34)
--- NOTE | 2024-11-06 11:41 | PCM.HP.STD ---
HPI - General General Date of Admission: 11/06/24 Date of Service: 11/06/24 Chief Complaint: Lightheadedness HPI Narrative HUSAM BARROW, is a 74 M who presented to the emergency department at [facility] on 11/06/2024 after an episode of lightheadedness/disequilibrium and emesis. Patient's never had anything quite this significant previously. He stated he had episode that was very mild and he presented to the emergency department in July at that time it was felt to be an adverse drug reaction. He stated he had some very mild sensation of being off balance when he got out of bed in the morning and then went to a wedding. After the service he was walking out and symptoms got very severe he had an episode of emesis and then was brought to the emergency department. He had no associated diaphoresis or shortness of breath. He denied any chest pain. He denied any tingling, numbness, weakness anywhere. He had no changes in his bowels and there was no blood in his vomitus. Vital signs on presentation showed a temperature of 98, heart rate 57, respiratory rate was 18, blood pressure initially was 82/47 but repeat after fluids was 126/84, orthostatic vitals were unremarkable, pulse ox was 97% on room air. CBC showed a mild white count elevation of 11.1 with a hemoglobin of 12.0 which appears to be consistent with his baseline. He had a very mild left shift with a 71.1% neutrophilia. He also had a monocytosis at 13.8% which appears to be chronic as well. Chemistry panel showed slightly serum anion gap at 16 with a bicarb of 18. Serum creatinine was normal. Glucose was 101 with a hemoglobin A1c of 5.5. Lactic acid was normal at 1.0. Initial troponin was 309 with a delta of 281-/4 troponin at 300. UA is not suggestive of infection. EKG showed some new ST depression and a chronic right bundle branch block in the anterior septal leads when compared with previous EKG from July 2024. Given his troponin elevation, symptoms, and EKG changes cardiology recommended urgent cardiac catheterization. He was taken for cardiac catheterization and was found to have a 10% proximal LAD lesion and a 30 to 40% mid RCA lesion. Medical therapy was recommended. I followed up with the patient after cardiac catheterization. He states his disequilibrium had resolved. He denied any chest pain, shortness of breath, diaphoresis, nausea or vomiting and stated he felt well and wanted to go home. [facility] Medical History Other abnormal clinical finding Fatigue Generalized weakness Adverse drug reaction Symptomatic bradycardia Generalized weakness Syncope and collapse High platelet count CAD (coronary artery disease) Hypertension Angina of effort Home Medications Medication Instructions Recorded Last Taken Type diltiazem HCl 180 mg 1 cap PO DAILY Check with primary 11/28/19 11/06/24 History capsule,extended release 24 hr doctor aspirin 81 mg tablet,delayed 81 mg PO DAILY 06/24/22 11/06/24 History release atorvastatin 40 mg tablet 20 mg PO DAILY 06/24/22 11/05/24 History bupropion HCl 300 mg 24 hr tablet, 300 mg PO DAILY 06/24/22 11/06/24 History extended release folic acid 1 mg tablet 2 mg PO DAILY 06/24/22 11/06/24 History losartan 50 mg tablet 25 mg PO DAILY 06/24/22 11/06/24 History carvedilol 3.125 mg tablet 6.25 mg (2 x 3.125 mg) PO DAILY #1 08/03/24 11/06/24 Rx TAB hydroxyurea 500 mg capsule 500 mg PO DAILY 08/03/24 11/05/24 History Allergy/AdvReac Type Severity Reaction Status Date / Time No Known Allergies Allergy Verified 11/06/24 09:30 no significant family history Surgical History S/P ORIF (open reduction internal fixation) fracture Social History Smoking Status: Never smoker ROS Constitutional Constitutional: Denies anorexia, change in weight, chills, fatigue, fever(s), malaise, night sweats, weakness or other Eyes Eyes: Denies blurry vision, change in eye color, change in vision, discharge from eye(s), double vision, erythema, eye pain, loss of vision or other ENT HEENT: Denies abnormal hearing, dysphagia, ear pain, epistaxis, headache(s), hearing loss, nasal congestion, nasal discharge, post nasal drip, sinus pressure, sore throat or other Cardiovascular Cardiovascular: Denies chest pain, claudication, dyspnea on exertion, edema, lightheadedness, orthopnea, palpitations, paroxysmal nocturnal dyspnea, rapid heart rate, syncope or other Respiratory/Chest Respiratory/Chest: Denies cough, dyspnea, excessive phlegm production, hemoptysis, productive cough, shortness of breath at rest, shortness of breath with exertion, wheezing or other Gastrointestinal Gastrointestinal: Reports nausea and vomiting; Denies abdominal pain, coffee ground emesis, constipation, diarrhea, dyspepsia, hematemesis, hematochezia, loose stools, melena or other Genitourinary Genitourinary: Denies burning urination, difficulty urinating, dysuria, hematuria, nocturia, urinary frequency, urinary hesitancy, urinary incontinence, urinary urgency or other Musculoskeletal Musculoskeletal: Denies arthralgias, back pain, joint pain, joint stiffness, joint swelling, myalgias, neck pain or other Neurologic Neurologic: Reports disequilibrium; Denies abnormal gait, abnormal speech, confusion, dizziness, focal weakness, headache(s), numbness, paresthesias, seizure-like activity, seizures, syncope, tingling, tremor(s) or other Psychiatric Psychiatric: Denies anxiety, depression, homicidal ideation, suicidal ideation or other Endocrine Endocrinology: Denies change in body appearance, cold intolerance, excessive sweating, heat intolerance, polydipsia, polyuria or other Hematologic/Lymphatic Hematologic/Lymphatic: Denies anemia, easy bleeding, easy bruising, lymphadenopathy or other Allergic/Immunologic Allergic/Immunologic: Denies rhinitis, hives, eczemia, asthma or other Vital Signs Vital Signs Vital Signs: 11/06/24 09:25 11/06/24 10:05 11/06/24 11:25 Temperature 98 F Temperature Source Oral Pulse Rate 57 L 57 L Pulse Rate [Lying] 57 L Pulse Rate [Sitting (for 1 minute prior to obtaining)] 61 Pulse Rate [Standing (for 1 minute prior to obtaining)] 61 Respiratory Rate 9 L 18 Blood Pressure 82/47 L 126/84 H Blood Pressure [Lying] 102/68 Blood Pressure [Sitting (for 1 minute prior to obtaining)] 111/70 Blood Pressure [Standing (for 1 minute prior to obtaining)] 91/75 Blood Pressure Mean 58 98 Blood Pressure Mean [Lying] 79 Blood Pressure Mean [Sitting (for 1 minute prior to obtaining)] 83 Blood Pressure Mean [Standing (for 1 minute prior to obtaining)] 80 Pulse Ox 97 97 Oxygen Delivery Method Room Air Room Air Weight Weight: 85.9 kg Body Mass Index (BMI) 26.4 Physical Exam Const alert, oriented x3, no apparent distress, average body habitus and well nourished Constitutional Narrative: Very pleasant, elderly, white male, lying in bed, family at bedside, senior nuclear medicine technologist at bedside as patient is currently getting echocardiogram, appears comfortable, nontoxic General Appearance: cooperative HEENT normocephalic, head/scalp atraumatic, hearing grossly normal bilaterally and moist oral mucous membranes HEENT Narrative: Dentition is fair for age, Mallampati is 2, no thrush Eyes conjunctivae normal Eyes Narrative: No scleral icterus Neck supple Neck Narrative: Trachea midline, no lymphadenopathy Resp normal respiratory effort, no retractions, no use of accessory muscles and clear to auscultation bilaterally Auscultation: Negative for rales, rhonchi or wheezes Cardio regular rate, regular rhythm, S1 normal heart sound, S2 normal heart sound, no murmurs, no rub, no gallops and no clicks GI normal to inspection, nondistended, normoactive bowel sounds, soft to palpation and non-tender Extremity no clubbing, cyanosis or edema Extremity Narrative: 2+ pedal pulses, right radial compression device in place postcardiac catheterization, left radial pulses 2+ Neuro moves all extremities and no focal motor deficits Speech: speech normal Psych affect normal Psych Narrative: Very pleasant, jovial, eye contact is good and patient interacts appropriately Results Lab / Micro Data 11/06/24 09:32 11/06/24 09:32 Labs: Laboratory Results - last 24 hr 11/06/24 09:32: WBC 11.1 H, RBC 3.22 L, Hgb 12.0 L, Hct 35.9 L, MCV 111.5 H, MCH 37.3 H, MCHC 33.4, RDW Std Deviation 63.5 H, RDW Coeff of Christian 15.4 H, Plt Count 406, MPV 9.6, Immature Gran % (Auto) 0.700, Neut % (Auto) 71.1 H, Lymph % (Auto) 9.4 L, [place] % (Auto) 13.8 H, Eos % (Auto) 4.6, Baso % (Auto) 0.4, Absolute Neuts (auto) 7.9 H, Absolute Lymphs (auto) 1.04, Nucleated RBC % 0, Sodium 136, Potassium 4.5, Chloride 103, Carbon Dioxide 18.0 L, Anion Gap 16 H, BUN 19, Creatinine 1.19, Estim Creat Clear Calc 56.25, Est GFR (MDRD) Non-Af 63, BUN/Creatinine Ratio 16.3, Glucose 101 H, Calcium 8.2, Troponin T High Sens 309 H* D 11/06/24 10:00: Lactic Acid 1.0 11/06/24 10:17: Urine Color Yellow, Urine Clarity Clear, Urine pH 6.0, Ur Specific [place] 1.015, Urine Protein 15 H, Urine Glucose (UA) Normal, Urine Ketones Negative, Urine Occult Blood 10 H, Urine Nitrite Negative, Urine Bilirubin Negative, Urine Urobilinogen Normal, Ur Leukocyte Esterase Negative, Urine RBC 0 SEEN, Urine WBC 0 SEEN, Ur Squamous Epith Cells 0 SEEN, Urine Bacteria 1+, Urine Mucus 0 SEEN Micro: Microbiology 11/06/24 10:00 Mucosa - Nose SARS-CoV-2, Influenza & RSV (PCR) - Final Rhythm Strip Rhythm Strip: Sinus Rhythm Rate: 59 Imaging Radiology Impression Brain CT 11/06/24 09:43 IMPRESSION: No acute intracranial abnormalities. Reading Location: [facility] Chest X-Ray 11/06/24 09:54 IMPRESSION: The cardiomediastinal silhouette is stable, with a tortuous aorta noted. No evidence of cardiomegaly. 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 Minimal areas of linear scarring or discoid atelectasis are seen in the right lower lung. Lungs otherwise appear clear of acute disease. No pleural effusion or pneumothorax is noted. No interval osseous change is seen. Reading Location: [id number] Assessment & Plan Assessment/Plan (1) Non-STEMI (non-ST elevated myocardial infarction): (2) CAD (coronary artery disease): (3) Leukocytosis: (4) Disequilibrium: PLAN: Plan NSTEMI - Cardiac catheterization is relatively despite EKG changes and troponin elevation - Cath with 10% proximal LAD stenosis and 30 to 40% mid RCA stenosis--> medical therapy is recommended - Echocardiogram pending - Continue aspirin - Continue home statin - Check hemoglobin A1c - Check lipid panel - Per discussion with cardiology given essentially negative cardiac catheterization sed rate and CRP ordered if they are elevated myocarditis should be considered and patient should be placed on goal-directed therapy with follow-up echocardiogram in 6 weeks and patient should follow-up with cardiology here prior to leaving for [place] where he goes for the winter Leukocytosis - Very mild and suspect reactive - Patient feels fine at this time - No further workup at this time - Repeat CBC in a.m. Disequilibrium - Resolved - Monitor clinically Essential hypertension/hyperlipidemia - Continue home carvedilol - Continue home losartan - Continue home diltiazem - Monitor closely as patient is on 2 rate modulating drugs and does have a documented history of symptomatic bradycardia--> currently stable Thrombocytosis - Patient on hydroxyurea for this - Ongoing outpatient follow-up as previously directed - Continue folic acid Depression - Continue home Wellbutrin DVT prophylaxis - Heparin drip discontinued - Placed on subcu Lovenox CODE STATUS - Full code verified Charges/Coding Visit Charges Inpatient E&M: 77852 Init Hosp L2
[2024-11-06 11:48] LABS: Prothrombin Time (Protime)PT. 17.0 SECONDS (11.7-14.9)
[2024-11-06 12:04] LABS: Troponin T High Sens 2 HR 281 ng/L (<=22)
[2024-11-06 12:09] LABS: Partial Thromboplast Time > 200.0 Seconds (24.1-36.2)
--- NOTE | 2024-11-06 13:57 | ECHOD_ITS ---
Reason For Study Reason For Study: CHEST PAIN Procedure This was a 2D Doppler, Color Flow transthoracic echocardiogram. The study was technically difficult. Exam performed portable in patient room. Left Ventricle Normal LV size. LV apical and mid cavitary false tendons. Suspect apical thinning. Basal inferior hypokinesis. Overall LVEF 60%. Stage I diastolic dysfunction. Right Ventricle Normal RV size. Moderate RV systolic dysfunction. Atria The left atrium is moderately enlarged. The right atrium is mildly enlarged. Mitral Valve Mild (1+) mitral valve insufficiency. Tricuspid Valve Mild (1+) tricuspid valve insufficiency. Normal pulmonary artery pressure. Aortic Valve Trisinus/trileaflet aortic valve. Mildly thickened aortic valve leaflets. Mild aortic valve stenosis. Mean peak gradient 11 mmHg. Pulmonic Valve The pulmonic valve is not well visualized. Great Vessels Normal sized aortic root. Pericardium/Pleural No pericardial effusion. MMode/2D Measurements & Calculations LVIDd: 5.6 cm IVSd: 0.84 cm Ao root diam: 3.6 cm LVIDs: 3.8 cm LVPWd: 0.99 cm RVDd: 3.8 cm FS: 31.7 % LAV(MOD-bp): 85.4 ml LVAd ap4: 31.5 cm2 LVAd ap2: 28.8 cm2 LAV(MOD-bp) Indexed: 41.6 ml/m2 LVLd ap4: 8.2 cm LVLd ap2: 8.2 cm LAV(MOD-sp2): 73.7 ml EDV(MOD-sp4): 100.8 ml EDV(MOD-sp2): 85.7 ml LAV(MOD-sp4): 83.0 ml EDV(sp4-el): 102.5 ml EDV(sp2-el): 85.6 ml LVAs ap4: 16.7 cm2 LVAs ap2: 15.3 cm2 LVLs ap4: 6.2 cm LVLs ap2: 6.3 cm ESV(MOD-sp4): 39.4 ml ESV(MOD-sp2): 33.2 ml ESV(sp4-el): 37.8 ml ESV(sp2-el): 31.3 ml EF(MOD-sp4): 60.9 % EF(MOD-sp2): 61.3 % EF(sp4-el): 63.1 % SV(MOD-sp4): 61.3 ml SV(MOD-sp2): 52.5 ml SV(sp4-el): 64.7 ml SI(MOD-sp4): 29.9 ml/m2 SI(MOD-sp2): 25.6 ml/m2 LA A4 area: 26.0 cm2 LA dimension(2D): 4.2 cm RA A4 area: 17.8 cm2 TAPSE: 2.6 cm Time Measurements MV dec time: 0.25 sec Doppler Measurements & Calculations MV E max bart: 69.2 cm/sec Lat Peak E' Bart: 6.8 cm/sec Med Peak E' Bart: 7.6 cm/sec MV A max bart: 115.0 cm/sec E/E' lat: 10.2 E/E' med: 9.2 MV E/A: 0.60 MV V2 max: 132.9 cm/sec MV P1/2t max bart: 83.0 cm/sec Ao V2 max: 233.2 cm/sec MV max P.1 mmHg MV P1/2t: 69.0 msec Ao max P.8 mmHg MV V2 mean: 50.0 cm/sec Ao V2 mean: 158.2 cm/sec MV mean P.3 mmHg MV dec slope: 352.3 cm/sec2 Ao mean P.5 mmHg MV V2 VTI: 32.6 cm MVA(P1/2t): 3.2 cm2 Ao V2 VTI: 53.9 cm AV (velocity ratio): 0.48 LV V1 max: 117.4 cm/sec PA V2 max: 108.0 cm/sec TR max bart: 247.5 cm/sec LV V1 max P.5 mmHg TR max P.8 mmHg LV V1 mean P.0 mmHg LV V1 mean: 81.8 cm/sec LV V1 VTI: 25.9 cm ECHO/Echo Complete Interpretation Summary LV apical and mid cavitary false tendons. Suspect apical thinning. Basal inferi or hypokinesis. Overall LVEF 60%. Stage I diastolic dysfunction. Normal RV size. Moderate RV systolic dysfunction. The left atrium is moderately enlarged. The right atrium is mildly enlarged. Mild (1+) mitral valve insufficiency. Mild (1+) tricuspid valve insufficiency. Mildly thickened aortic valve leaflets. Mild aortic valve stenosis. Mean peak g radient 11 mmHg. The study was technically difficult. Recommend cardiac MRI for further evaluati on of the LV apex. Ordering Physician: Katty Mcbride Referring Physician: Stanislaw Singer Performed By: Abbi Amador, HOLLY, RVT
--- NOTE | 2024-11-06 14:26 | CL.D_ITS ---
Patient Name: HUSAM BARROW Study Date: 11/06/2024 Performing: Clinton Duran MD Ht: 71 inches 180.34 cm : 1950 Wt: 189.6 lbs 85.9 kg Age: 74 Gender: male BSA: 2.06 PROCEDURE(S) PERFORMED [id number])LHC/COR/LV CLINICAL PROFILE AND INDICATIONS Indications: ACS <= 24 hrs Heart Failure: None Stress/Imaging Stress/Image Study Performed: No Angina Classification Anginal Classification w/in 2 Weeks: No symptoms CAD Presentations: Other: CONCLUSIONS 10% Prox LAD 30-40% Mid RCA LVEF 60%. Mild posterior basal hypokinesis RECOMMENDATIONS Risk factor modification Medical therapy DESCRIPTION OF PROCEDURE The patient arrived to the procedure lab. The risks and benefits of the procedure as well as a full description of our services here and current unavailability of surgical backup were fully explained to the patient and/or their significant other prior to the catheterization. The Timeout was completed, verifying the correct patient and procedure. The patient's procedural site was prepped and draped in the usual fashion. Local anesthetic was given subcutaneously to right radial region with Lidocaine 2%. Using a modified Seldinger technique, Left Coronary Artery selective angiography was performed in multiple views using a 5 Fr. 4.0 [place] catheter. Left Coronary Artery selective angiography was performed in multiple views using a 5 Fr. JL4 catheter. Right Coronary Artery selective angiography was then performed in multiple views using a 5 Fr. 3DRC (Micky) catheter. Left Ventriculography was performed in [place]IA projection using a 5 Fr. Pigtail catheter.The arterial sheath was pulled and a TR Band was applied for hemostasis w /10ml air CORONARY ANGIOGRAPHY DOMINANCE: Right Dominant LEFT HEART ASSESSMENT Left Ventricular Ejection Fraction: by LV Gram 60 % Posterior Basal Hypokinesis - Mild LVEDP: 17 mmHg LEFT MAIN: Angiographically normal LEFT ANTERIOR DESCENDING ARTERY: LAD: Tubular 10% Proximal lesion in LAD CIRCUMFLEX ARTERY: Angiographically normal RIGHT CORONARY ARTERY: RCA: Tubular 40% Mid lesion in RCA COMPLICATIONS No Complications PROCEDURE MEDICATIONS Versed 1 mg IV Fentanyl 50 mcg IV Oxygen: 2 L/min via nasal cannula Heparin given IA 11/06/2024 13:25:48 Verapamil 2.5mg, Ntg 200mcgs, 2000 units of Heparin given IA 11/06/2024 13:25:48 SUMMARY OF HEMODYNAMIC DATA Time AIR REST ECG 13:07:05 AO 108/74 (89) SA 13:29:28 AO 107/69 (85) 13:39:28 LV 135/5, 17 13:42:23 LV 133/6, 17 13:42:31 Signed By Clinton Duran MD On 11/06/2024 14:25:44 Clinton Duran MD
[2024-11-06 14:55] LABS: D-Dimer Quantitative (DVT/PE) 0.97 FEU/ug/m (0.27-0.49)
[2024-11-06 15:12] LABS: Troponin T High Sens 4 HR 300 ng/L (<=22)
[2024-11-06] MEDS: 0.9% Normal Saline (1000mL) 1,000 ML 100 ML IV (16:55)
[2024-11-06 19:19] LABS: CRP 71.70 mg/L (0.0-3.0)
[2024-11-07 04:00] VITALS: BP 126/62; PULSE 63; RESP 16; TEMP 36.7; O2SAT 92
[2024-11-07 05:29] LABS: Hematocrit 34.0 % (40-54); Hemoglobin 11.7 g/dL (13.0-16.5); Immature Granulocytes Count 0.050 X10^3/uL (0.0-0.0); Mean Corp Hgb Conc 34.4 g/dL (32-36); Mean Corpuscular Volume 109.0 fL (80-94); Mean Platelet Vol. 9.3 fl (6.2-12.0); NRBC Flagged by Analyzer 0 % (0-5); Platelet Count 386 K/mm3 (150-450); RBC Distribution Width CV 15.3 % (11.6-14.6); RBC Distribution Width SD 61.1 fl (35.1-43.9); Red Blood Count 3.12 M/mm3 (4.6-6.2); White Blood Count 10.5 K/mm3 (4.4-11.0)
[2024-11-07 05:46] LABS: D-Dimer Quantitative (DVT/PE) 1.27 FEU/ug/m (0.27-0.49)
[2024-11-07 06:47] LABS: AST(SGOT) 47 U/L (<=37); Alanine Aminotransfer ALT/SGPT 38 U/L (<=46); Albumin, Serum 3.0 g/dL (3.4-4.8); Alkaline Phosphatase 129 U/L (40-129); Anion Gap 9 (5-15); BUN 15 mg/dL (4-19); BUN/Creat Ratio 14.9 RATIO (10-20); Calcium,Total 8.2 mg/dL (7.6-11.0); Carbon Dioxide 21.4 mmol/L (21.0-32.0); Chloride 105 mmol/L (98-108); Cholesterol 96 mg/dL (<=200); Estimated Creatinine Clearance 66.93 ml/min (50-250); Globulin 2.8 g/dL (2.2-4.2); Glucose 96 mg/dL (70-99); Low Density Lipoprotein Calc. 50 mg/dL; Magnesium 2.2 mg/dL (1.5-2.2); Potassium 4.1 mmol/L (3.3-5.1); Triglycerides 87 mg/dL; Very Low Density Lipoprotein 17 mg/dL (5-40); cholesterol:hdl ratio screen 3.29
--- NOTE | 2024-11-07 10:23 | PN.HOSP_ITS ---
Reason for Visit Chief Complaint: Lightheadedness Objective Data Objective Data Vital Signs: Vital Signs Temp Pulse Resp BP Pulse Ox O2 Del Method 98.0 F 63 16 126/62 H 92 Room Air 11/07/24 04:00 11/07/24 04:00 11/07/24 04:00 11/07/24 04:00 11/07/24 04:00 11/07/24 04:00 Oxygen Delivery Method Room Air Weight: 187 lb 13.341 oz Body Mass Index (BMI) 26.2 Intake & Output: Intake and Output for Last 24 Hours 11/05/24 11/06/24 11/07/24 23:59 23:59 23:59 Intake Total 1616.48 / 1616.48 1500 / 1500 Balance 1616.48 / 1616.48 1500 / 1500 Lab / Micro Data 11/07/24 05:15 11/07/24 05:15 Labs: Laboratory Results - last 24 hr 11/05/24 16:12: Hepatitis C Antibody Cancelled 11/06/24 09:32: ESR 63 H 11/06/24 09:43: Hemoglobin A1c 5.5 11/06/24 10:00: Lactic Acid 1.0 11/06/24 10:17: Urine Color Yellow, Urine Clarity Clear, Urine pH 6.0, Ur Specific [place] 1.015, Urine Protein 15 H, Urine Glucose (UA) Normal, Urine Ketones Negative, Urine Occult Blood 10 H, Urine Nitrite Negative, Urine Bilirubin Negative, Urine Urobilinogen Normal, Ur Leukocyte Esterase Negative, Urine RBC 0 SEEN, Urine WBC 0 SEEN, Ur Squamous Epith Cells 0 SEEN, Urine Bacteria 1+, Urine Mucus 0 SEEN 11/06/24 11:25: Troponin T Hi Sens 2 Hr 281 H* 11/06/24 11:35: PT 17.0 H, INR 1.4, APTT > 200.0 H* 11/06/24 13:50: D-Dimer Quant (PE/DVT) 0.97 H* 11/06/24 14:13: Troponin T Hi Sens 4Hr 300 H*, C-React Prot Ext Range 71.70 H 11/07/24 05:15: WBC 10.5, RBC 3.12 L, Hgb 11.7 L, Hct 34.0 L, MCV 109.0 H, MCH 37.5 H, MCHC 34.4, RDW Std Deviation 61.1 H, RDW Coeff of Christian 15.3 H, Plt Count 386, MPV 9.3, Immature Gran % (Auto) 0.500, Neut % (Auto) 70.2 H, Lymph % (Auto) 11.4 L, [place] % (Auto) 13.0 H, Eos % (Auto) 4.5, Baso % (Auto) 0.4, Absolute Neuts (auto) 7.3, Absolute Lymphs (auto) 1.19, Nucleated RBC % 0, D-Dimer Quant (PE/DVT) 1.27 H*, Sodium 136, Potassium 4.1, Chloride 105, Carbon Dioxide 21.4, Anion Gap 9, BUN 15, Creatinine 1.00, Estim Creat Clear Calc 66.93, Est GFR (MDRD) Non-Af 78, BUN/Creatinine Ratio 14.9, Glucose 96, Calcium 8.2, Phosphorus 3.0, Magnesium 2.2, Total Bilirubin 0.53, AST 47 H, ALT 38, Alkaline Phosphatase 129, Total Protein 5.9, Albumin 3.0 L, Globulin 2.8, Albumin/Globulin Ratio 1.1, Triglycerides 87, Cholesterol 96, LDL Cholesterol, Calc 50, VLDL Cholesterol 17, HDL Cholesterol 29 L, Cholesterol/HDL Ratio 3.29, TSH 1.470 Micro: Microbiology 11/06/24 10:00 Mucosa - Nose SARS-CoV-2, Influenza & RSV (PCR) - Final Radiography Diagnostic Testing: Radiology Impression Brain CT 11/06/24 09:43 IMPRESSION: No acute intracranial abnormalities. Reading Location: [facility] Chest X-Ray 11/06/24 09:54 IMPRESSION: The cardiomediastinal silhouette is stable, with a tortuous aorta noted. No evidence of cardiomegaly. 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 Minimal areas of linear scarring or discoid atelectasis are seen in the right lower lung. Lungs otherwise appear clear of acute disease. No pleural effusion or pneumothorax is noted. No interval osseous change is seen. Reading Location: [id number] Echocardiogram 11/06/24 13:57 Interpretation Summary LV apical and mid cavitary false tendons. Suspect apical thinning. Basal inferior hypokinesis. Overall LVEF 60%. Stage I diastolic dysfunction. Normal RV size. Moderate RV systolic dysfunction. The left atrium is moderately enlarged. The right atrium is mildly enlarged. Mild (1+) mitral valve insufficiency. Mild (1+) tricuspid valve insufficiency. Mildly thickened aortic valve leaflets. Mild aortic valve stenosis. Mean peak gradient 11 mmHg. The study was technically difficult. Recommend cardiac MRI for further evaluation of the LV apex. Ordering Physician: Katty Mcbride Referring Physician: Stanislaw Singer Performed By: Abbi Amador RDCS, RVT Rhythm Strip Rhythm Strip: Sinus Rhythm Rate: 59 Assessment & Plan Assessment/Plan (1) Non-STEMI (non-ST elevated myocardial infarction): (2) CAD (coronary artery disease): (3) Leukocytosis: (4) Disequilibrium: PLAN: Plan NSTEMI - Cardiac catheterization is relatively despite EKG changes and troponin elevation - Cath with 10% proximal LAD stenosis and 30 to 40% mid RCA stenosis--> medical therapy is recommended - Echocardiogram pending - Continue aspirin - Continue home statin - Check hemoglobin A1c - Check lipid panel - Per discussion with cardiology given essentially negative cardiac catheterization sed rate and CRP ordered if they are elevated myocarditis should be considered and patient should be placed on goal-directed therapy with follow- up echocardiogram in 6 weeks and patient should follow-up with cardiology here prior to leaving for [place] where he goes for the winter Leukocytosis - Very mild and suspect reactive - Patient feels fine at this time - No further workup at this time - Repeat CBC in a.m. Disequilibrium - Resolved - Monitor clinically Essential hypertension/hyperlipidemia - Continue home carvedilol - Continue home losartan - Continue home diltiazem - Monitor closely as patient is on 2 rate modulating drugs and does have a documented history of symptomatic bradycardia--> currently stable Thrombocytosis - Patient on hydroxyurea for this - Ongoing outpatient follow-up as previously directed - Continue folic acid Depression - Continue home Wellbutrin DVT prophylaxis - Heparin drip discontinued - Placed on subcu Lovenox CODE STATUS - Full code verified
[2024-11-07 10:39] VITALS: BP 129/79; PULSE 57; RESP 16; TEMP 36.7; O2SAT 96
[2024-11-07] MEDS: Aspirin E.C. 81 MG Tablet PO (10:57)
[2024-11-07] MEDS: buPROPion (XL) 300 MG TABLET.XL PO (10:59)
--- NOTE | 2024-11-07 11:09 | PCM.DC ---
Discharge Instructions DC O2, CPAP, BIPAP needs Home O2 Discharge instructions: No Dressing / Incision Discharge Activity: Return to Normal Activity Weight Bearing Status: Weight bearing as tolerated Dressing / Incision Call your doctor if you observe: Fever of 101 or Higher, Coldness, Increased Pain, Numbness or Tingling, Change in Color, Inability to urinate, Inability to have a bowel movement, Shortness of breath, Dizziness, Fainting spells, Swelling in the ankles, Chest pain, Prolonged hiccupping, Increased palpitations (irregular heartbeat) and Calf discomfort Follow Up Care When: IN 2 WEEKS Test Results: Test results from this visit will be discussed in further detail at your follow-up appointment, if applicable. Discharge Plan Admission Admit Date/Time: 11/06/24 11:35 Attending Provider: Scott Gunn Primary Care Provider: Stanislaw Singer Consulting Providers: Lance Garrett; Katty Mcbride Discharge Orders/Prescriptions Prescriptions: New atorvastatin 80 mg Tablet 80 mg PO QHS 30 Days Qty: 30 2RF carvedilol 6.25 mg Tablet 6.25 mg PO BIDCM 30 Days Qty: 60 2RF Continued diltiazem HCl 180 MG capsule,extended release 24hr 1 cap PO DAILY Patient Comments: TAKE 1 CAPSULE BY MOUTH ONCE DAILY losartan 50 mg tablet 25 mg PO DAILY Patient Comments: TAKE 1 TABLET BY MOUTH ONCE DAILY aspirin 81 mg tablet,delayed release (DR/EC) 81 mg PO DAILY Patient Comments: TAKE 1 TABLET BY MOUTH ONCE DAILY folic acid 1 mg tablet 2 mg PO DAILY Patient Comments: TAKE 2 TABLETS BY MOUTH ONCE DAILY bupropion HCl 300 mg tablet extended release 24 hr 300 mg PO DAILY Patient Comments: TAKE 1 TABLET BY MOUTH ONCE DAILY hydroxyurea 500 mg capsule 500 mg PO DAILY Discontinued atorvastatin 40 mg tablet 20 mg PO DAILY Patient Comments: TAKE 1 TABLET BY MOUTH ONCE DAILY AT BEDTIME carvedilol 3.125 mg tablet 6.25 mg PO DAILY Qty: 1 0RF Patient Comments: TAKE 1 TABLET BY MOUTH TWICE DAILY Rx Instructions: Reduce carvedilol to 6.25 mg twice a day Referrals / Follow Up: Stanislaw Singer MD [Primary Care Provider, Family Practice] Lance Garrett MD [Med Staff - Active Staff, Cardiology] - Within 3 Months Referral Note: Follow up limited ECHO in 6 weeks Nellie Mcknight PA [Med Staff - Adv Practice Prof, Cardiology] Carlos Manuel Sanders PA [Med Staff - [facility] Practice Prof, Cardiology] - Within 1 Month Disposition Disposition (needs filled in before D/C Order can be placed): Home, Self Care
--- NOTE | 2024-11-07 11:18 | PCM.DC.SUM ---
Providers Date of Admission: 11/06/24 Date of Discharge: 11/07/24 Primary Care Physician: Dr. Stanislaw Singer MD Consultations 11/06/24 13:57 Consult: Cardiology Routine Consulting Provider: Lance Garrett Reason for Consult: Chest Pain EMERGENT Consult: No MD Notified: Yes Date Notified: 11/06/24 Time Notified: 11:36 Method of Notification: ED Physician Initiated Reason For Visit: NSTEMI Diagnosis Discharge Diagnosis (1) Non-STEMI (non-ST elevated myocardial infarction): Status: Acute Code(s): I21.4 - Non-ST elevation (NSTEMI) myocardial infarction (2) CAD (coronary artery disease): Status: Acute Code(s): I25.10 - Atherosclerotic heart disease of [place] coronary artery without angina pectoris (3) Leukocytosis: Status: Acute Code(s): D72.829 - Elevated white blood cell count, unspecified (4) Disequilibrium: Status: Acute Code(s): R42 - Dizziness and giddiness Plan NSTEMI - Cardiac catheterization is relatively despite EKG changes and troponin elevation - Cath with 10% proximal LAD stenosis and 30 to 40% mid RCA stenosis--> medical therapy is recommended - Echocardiogram reported mild MR mild TR, EF 60% with stage I diastolic dysfunction suggestive of mild chronic HFpEF. Moderate RV systolic dysfunction, normal RV size. - Continue aspirin - Home dose of atorvastatin 40 mg daily increased to 80 mg daily and new prescription was given. A1c 5.5%. -Lipid panel in normal limit except low HDL 29. Atorvastatin 40 (to 80 mg. New prescription given. ESR elevated 63. CRP 71.7. Acute Fast reactants are elevated. Advised follow-up with [employer] with nurse practitionerCarlos Manuel in 4 weeks and repeat limited echo in 6 weeks. Follow with [facility] [employer] Dr. Lance Garrett in 2 months after echo. Patient lives in [place] for 5 months and 7 months in [place]. 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 Does not follow cardiology here. 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 Discharge follow-up instructions completed. Discharge process discussed with the patient and all questions were answered to patient's satisfaction. Follow with PCP in 1 to 2 weeks Total time spent, exact 35 minutes on discharge meds reconciliation, examination, coordination of care with nurses and ancillary staff, review of imaging and blood test and discussion with the patient on follow-up instructions. Echo 11/06/2024 Interpretation Summary LV apical and mid cavitary false tendons. Suspect apical thinning. Basal inferior hypokinesis. Overall LVEF 60%. Stage I diastolic dysfunction. Normal RV size. Moderate RV systolic dysfunction. The left atrium is moderately enlarged. The right atrium is mildly enlarged. Mild (1+) mitral valve insufficiency. Mild (1+) tricuspid valve insufficiency. Mildly thickened aortic valve leaflets. Mild aortic valve stenosis. Mean peak gradient 11 mmHg. The study was technically difficult. Recommend cardiac MRI for further evaluation of the LV apex. Medications at Discharge Home Medications diltiazem HCl 180 mg capsule,extended release 24 hr 1 cap PO DAILY Check with primary doctor 11/28/19 aspirin 81 mg tablet,delayed release 81 mg PO DAILY 06/24/22 bupropion HCl 300 mg 24 hr tablet, extended release 300 mg PO DAILY 06/24/22 folic acid 1 mg tablet 2 mg PO DAILY 06/24/22 losartan 50 mg tablet 25 mg PO DAILY 06/24/22 hydroxyurea 500 mg capsule 500 mg PO DAILY 08/03/24 atorvastatin 80 mg tablet 80 mg PO QHS 30 days #30 tabs 11/07/24 carvedilol 6.25 mg tablet 6.25 mg PO BIDCM 30 days #60 tabs 11/07/24 Physical Exam Narrative Seen and examined. Nausea, dizziness and discogram has resolved. Blood pressure is better. Had orthostatic/low BP when he came to ED. No chest pain systolic murmur Physical exam General: Alert, Oriented x3, Cooperative HEENT: Atraumatic, PERRLA, EOMI, Normocephalic. Oral: No Gingival or Mucosal Lesions/ Ulcerations Neck: Supple, No JVD, Negative Carotid Bruits Chest wall/Lungs: Air entry equal in bilateral lung bases. No crepitation/rhonchi Cardiovascular: Regular rate and rhythm, Normal S1,S2, Abdomen: Bowel Sounds Present, Soft, Non Tender, Non-Distended : No dysuria. No renal angle tenderness. No suprapubic tenderness. Extremities: No edema, Capillary Refill Less than 3 Seconds Skin: No rashes, No breakdown Musculoskeletal: No Tenderness to Palpation of Joints or Extremities Neurological: Cranial nerves II-XII grossly intact, DTR 2+/4. No acute focal neurological deficit. Psych/Mental Status: Normal Affect, Appropriate. Weight / BMI Weight Weight: 187 lb 13.341 oz Body Mass Index (BMI) 26.2 ABG / Lab / Microbiology Data 11/07/24 05:15 11/07/24 05:15 Laboratory: Laboratory Results - last 24 hr 11/05/24 16:12: Hepatitis C Antibody Cancelled 11/06/24 09:32: ESR 63 H 11/06/24 09:43: Hemoglobin A1c 5.5 11/06/24 11:25: Troponin T Hi Sens 2 Hr 281 H* 11/06/24 11:35: PT 17.0 H, INR 1.4, APTT > 200.0 H* 11/06/24 13:50: D-Dimer Quant (PE/DVT) 0.97 H* 11/06/24 14:13: Troponin T Hi Sens 4Hr 300 H*, C-React Prot Ext Range 71.70 H 11/07/24 05:15: WBC 10.5, RBC 3.12 L, Hgb 11.7 L, Hct 34.0 L, MCV 109.0 H, MCH 37.5 H, MCHC 34.4, RDW Std Deviation 61.1 H, RDW Coeff of Christian 15.3 H, Plt Count 386, MPV 9.3, Immature Gran % (Auto) 0.500, Neut % (Auto) 70.2 H, Lymph % (Auto) 11.4 L, [place] % (Auto) 13.0 H, Eos % (Auto) 4.5, Baso % (Auto) 0.4, Absolute Neuts (auto) 7.3, Absolute Lymphs (auto) 1.19, Nucleated RBC % 0, D-Dimer Quant (PE/DVT) 1.27 H*, Sodium 136, Potassium 4.1, Chloride 105, Carbon Dioxide 21.4, Anion Gap 9, BUN 15, Creatinine 1.00, Estim Creat Clear Calc 66.93, Est GFR (MDRD) Non-Af 78, BUN/Creatinine Ratio 14.9, Glucose 96, Calcium 8.2, Phosphorus 3.0, Magnesium 2.2, Total Bilirubin 0.53, AST 47 H, ALT 38, Alkaline Phosphatase 129, Total Protein 5.9, Albumin 3.0 L, Globulin 2.8, Albumin/Globulin Ratio 1.1, Triglycerides 87, Cholesterol 96, LDL Cholesterol, Calc 50, VLDL Cholesterol 17, HDL Cholesterol 29 L, Cholesterol/HDL Ratio 3.29, TSH 1.470 Microbiology: Microbiology 11/06/24 10:00 Mucosa - Nose SARS-CoV-2, Influenza & RSV (PCR) - Final Radiography Diagnostic Testing: Radiology Impression Echocardiogram 11/06/24 13:57 Interpretation Summary LV apical and mid cavitary false tendons. Suspect apical thinning. Basal inferior hypokinesis. Overall LVEF 60%. Stage I diastolic dysfunction. Normal RV size. Moderate RV systolic dysfunction. The left atrium is moderately enlarged. The right atrium is mildly enlarged. Mild (1+) mitral valve insufficiency. Mild (1+) tricuspid valve insufficiency. Mildly thickened aortic valve leaflets. Mild aortic valve stenosis. Mean peak gradient 11 mmHg. The study was technically difficult. Recommend cardiac MRI for further evaluation of the LV apex. Ordering Physician: Katty Mcbride Referring Physician: Stanislaw Singer Performed By: Abbi Amador, HOLLY, RVT D/C Instructions Weight Bearing Status: Weight bearing as tolerated Call your doctor if you observe: Fever of 101 or Higher, Coldness, Increased Pain, Numbness or Tingling, Change in Color, Inability to urinate, Inability to have a bowel movement, Shortness of breath, Dizziness, Fainting spells, Swelling in the ankles, Chest pain, Prolonged hiccupping, Increased palpitations (irregular heartbeat) and Calf discomfort DC O2, CPAP, BIPAP Needs Home O2 Discharge instructions: No When: IN 2 WEEKS Meaningful Use Info Meaningful Use Meaningful Use Diagnoses (Choose all that apply): None applicable and AMI AMI/Post PCI/Angioplasty Aspirin given w/in 24hrs of arrival?: Yes ASA at discharge?: Yes Statins at discharge?: Yes Ranjeet/ARB at discharge?: Yes Beta Josue at discharge?: Yes Done w/ Acute VA measure.: Yes Discharge Plan Admission Admit Date/Time: 11/06/24 11:35 Attending Provider: Scott Gunn Primary Care Provider: Stanislaw Singer Consulting Providers: Lance Garrett; Katty Mcbride Discharge Orders/Prescriptions Prescriptions: New atorvastatin 80 mg Tablet 80 mg PO QHS 30 Days Qty: 30 2RF carvedilol 6.25 mg Tablet 6.25 mg PO BIDCM 30 Days Qty: 60 2RF Continued diltiazem HCl 180 MG capsule,extended release 24hr 1 cap PO DAILY Patient Comments: TAKE 1 CAPSULE BY MOUTH ONCE DAILY losartan 50 mg tablet 25 mg PO DAILY Patient Comments: TAKE 1 TABLET BY MOUTH ONCE DAILY aspirin 81 mg tablet,delayed release (DR/EC) 81 mg PO DAILY Patient Comments: TAKE 1 TABLET BY MOUTH ONCE DAILY folic acid 1 mg tablet 2 mg PO DAILY Patient Comments: TAKE 2 TABLETS BY MOUTH ONCE DAILY bupropion HCl 300 mg tablet extended release 24 hr 300 mg PO DAILY Patient Comments: TAKE 1 TABLET BY MOUTH ONCE DAILY hydroxyurea 500 mg capsule 500 mg PO DAILY Discontinued atorvastatin 40 mg tablet 20 mg PO DAILY Patient Comments: TAKE 1 TABLET BY MOUTH ONCE DAILY AT BEDTIME carvedilol 3.125 mg tablet 6.25 mg PO DAILY Qty: 1 0RF Patient Comments: TAKE 1 TABLET BY MOUTH TWICE DAILY Rx Instructions: Reduce carvedilol to 6.25 mg twice a day Referrals / Follow Up: Stanislaw Singer MD [Primary Care Provider, Family Practice] Lance Garrett MD [Med Staff - Active Staff, Cardiology] - Within 3 Months Referral Note: Follow up limited ECHO in 6 weeks Nellie Mcknight, PA [Med Staff - Adv Practice Prof, Cardiology] Carlos Manuel Sanders PA [Med Staff - Adv Practice Prof, Cardiology] - Within 1 Month Disposition Disposition (needs filled in before D/C Order can be placed): Home, Self Care Charges/Coding Visit Charges Inpatient E&M: 98235 Disch Hosp >30min
--- NOTE | 2024-11-07 11:20 | CASEMGMT ---
RN CM Face to Face with patient for initial transition planning/care coordination assessment. RN CM introduced self and role at [facility]. Patient lying in bed, alert and oriented. Patient willing to participate in assessment and is able to answer all questions appropriately. Care providers, pharmacy, and demographics verified. 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 Patient states he is independent at home. Transportation: driving service DME/HHC: Patient has cane at home. No previous HHC or SNF. Patient wishes to discharge home, denies need for home health at this time. Patient states he has no further needs or concerns at this time. CM to follow for discharge planning needs that may arise. Disposition Plan: Patient to discharge home with family support and follow-up plans in place. Mary QURESHI, RN, CM
--- NOTE | 2024-11-07 11:20 | PHA.DC.MR.R ---
Pharmacy [place] Med Reconciliation Pharmacy Service has performed discharge medication reconciliation for this patient. The patient's discharge medication list was reviewed for discrepancies and discrepancies were resolved. Medications at Discharge Home Medications diltiazem HCl 180 mg capsule,extended release 24 hr 1 cap PO DAILY Check with primary doctor 11/28/19 aspirin 81 mg tablet,delayed release 81 mg PO DAILY 06/24/22 bupropion HCl 300 mg 24 hr tablet, extended release 300 mg PO DAILY 06/24/22 folic acid 1 mg tablet 2 mg PO DAILY 06/24/22 losartan 50 mg tablet 25 mg PO DAILY 06/24/22 hydroxyurea 500 mg capsule 500 mg PO DAILY 08/03/24 atorvastatin 80 mg tablet 80 mg PO QHS 30 days #30 tabs 11/07/24 carvedilol 6.25 mg tablet 6.25 mg PO BIDCM 30 days #60 tabs 11/07/24
== END 2024-11-07 12:50 | disposition home or self-care (01) | DRG 281 ==
LOC: ED 11:44 → PCU 11:44 → CLSP 15:34 → ED 15:34 → PCU 15:35
PROVIDERS: Internal Medicine Cardiovascular Disease; Admitting Provider Internal Medicine; Emergency Provider Emergency Medicine; PCP Family Medicine; Referring Provider Internal Medicine; Visit Provider Internal Medicine
DX: I21.4 Non-ST elevation (NSTEMI) myocardial infarction (principal); I50.32 Chronic diastolic (congestive) heart failure; D47.3 Essential (hemorrhagic) thrombocythemia; I11.0 Hypertensive heart disease with heart failure; I45.10 Unspecified right bundle-branch block; F32.A Depression, unspecified; I25.10 Atherosclerotic heart disease of native coronary artery without angina pectoris; D72.829 Elevated white blood cell count, unspecified; I95.9 Hypotension, unspecified; E78.5 Hyperlipidemia, unspecified; R00.1 Bradycardia, unspecified; R42 Dizziness and giddiness; Z79.82 Long term (current) use of aspirin; Z79.899 Other long term (current) drug therapy
CPT/HCPCS: 36415; 70450; 71045; 80048; 80053; 80061; 81001; 83036; 83605; 83735; 84100; 84443; 84484; 85025; 85379; 85610; 85652; 85730; 86140; 87631; 93005; 93306; 93458; 94668; 99152; 99153; 99285; C1894; Q9967; A4216; C1769

== ENCOUNTER → 2024-11-28 | Outpatient (CLI) | payer SELFPAY, OTHER ==
--- NOTE | 2024-11-28 15:52 | RAD_ITS ---
PROCEDURE: CHEST PA AND LATERAL 11/28/2024 REASON FOR EXAM: COUGH TECHNIQUE: Procedure Code: RADCXR Modality: DX Procedure: CHEST PA AND LATERAL COMPARISON: 11/06/2024 FINDINGS: Hardware: None. Heart: The heart size is normal. Mediastinum: The mediastinal contour is unremarkable. Lungs: Redemonstrated right basilar atelectasis. No pneumothorax or sizable pleural effusion. Bones: The bones are unremarkable. RAD/Chest PA and Lateral IMPRESSION: NO ACUTE FINDINGS. Reading [facility]
--- OUTSIDE RECORDS SUMMARY | 2024-11-28 16:02 | XMS RPT_ITS | CCD ---
Author Organization [facility] Care Team Providers Care Edi Programmer Analyst Name Role Phone Brien Singer MD Primary Care Provider Brien Singer MD Primary Care Provider Ernesto LIVE OUT NANNY.BUSINESS DATA ANALYST, Anna Unavailable Jose A LIVE OUT NANNY.BUSINESS DATA ANALYST, Edwin Unavailable Dr. Brien Singer MD Primary Care Provider Maxim Guzman MD Emergency Provider Morrison DO, Dr. Hutchinson Admit Provider Unavail able de Amandeep DO, Dr. Hutchinson Attending Provider Unav ailable de Amandeep , Dr. Hutchinson Other Provider Unavail able Guerline ZAMBRANO, Dr. Dover Attending Provider Dr. Brien Singer MD Primary Care Physician Maxim Guzman MD Emergency Department Physician Morrison DO, Dr. Hutchinson Admitting Physician Whitney vailable de Amandeep ZAMBRANO, Dr. Hutchinson Nurse Practitioner Unav ailable Guerline ZAMBRANO, Dr. Dover Attending Physician Dr. Erick Monsivais DO Emergency Department Physi leeann Dr. Lance Garrett MD Attending Physician Dr. Lance Garrett MD Nurse Practitioner Dr. Katty Mcbride DO Admitting Physician Dr. Katty Mcbride DO Referring Provider Dr. Katty Mcbride DO Nurse Practitioner Dr. Scott Gunn MD Attending Physician Dr. Katty Mcbride DO Attending Physician Roger LIEBERMAN, Dr. Alonzo Attending Physician [phone] Luis A LIEBERMAN, Dr. Chavez Nurse Practitioner [phone] Elderbrock, Brien Primary Care Unavailable Katty Mcbride Referring Unavailable Katty Mcbride Admitting Unavailable Scott Gunn Attending Unavailable Lance Garrett Consulting Unavailable Katty Mcbride Consulting Unavailable Elderbrock, Brien Primary Care Unavailable Brien Cunha Attending Unavailable Jasper Morrison Admitting Unavailable de AmandeepJasper hampton Consulting Unavailable Elderbrock, Brien Primary Care Unavailable Lance Garrett Attending Unavailable Enmanuel, Brien Primary Care Unavailable Clinton Duran Attending Unavailable Katty Mcbride Referring Unavailable Katty Mcbride Admitting Unavailable Scott Gunn Attending Unavailable Elderbrock, Brien Primary Care Unavailable Lance Garrett Consulting Unavailable Katty Mcbride Consulting Unavailable Luis A, Scott Consulting Unavailable Elderbrock, Brien Primary Care Unavailable Jasper Morrison Admitting Unavailable de Jasper Bernstein Consulting Unavailable Jasper Morrison Attending Unavailable Elderbrock, Brien Primary Care Unavailable Lance Garrett Attending Unavailable Katty Mcbride Attending Unavailable ELDERBROCK, BRIEN D Primary Care Unavailable ELDERBROCK, BRIEN Miguelina Attending Unavailable ELDERBROCK, BRIEN D Primary Care Unavailable ELDERBROCK, BRIEN Mcintyre Attending Unavailable ELDERBROCK, BRIEN D Referring Unavailable ELDERBROCK, BRIEN D Primary Care Unavailable ELDERBROCK, BRIEN D Primary Care Unavailable ELDERBROCK, BRIEN D Referring Unavailable ELDERBROCK, BRIEN D Primary Care Unavailable ELDERBROCK, BRIEN D Referring Unavailable ELDERBROCK, BRIEN D Primary Care Unavailable JOSE A, EDWIN Attending Unavailable MASCCici, ALVERTO A Attending Unavailable ELDERBROCK, BRIEN D Primary Care Unavailable JOSE A, EDWIN Referring Unavailable MASCI, ALVERTO A Referring Unavailable ELDERBROCK, BRIEN D Primary Care Unavailable MASCI, ALVERTO A Referring Unavailable ELDERBROCK, BRIEN D Primary Care Unavailable MASCI, ALVERTO A Referring Unavailable ELDERBROCK, BRIEN D Primary Care Unavailable MASCI, ALVERTO A Referring Unavailable ELDERBROCK, BRIEN D Primary Care Unavailable ELDERBROCK, BRIEN D Primary Care Unavailable ELDERBROCK, BRIEN D Primary Care Unavailable ELDERBROCK, BRIEN D Primary Care Unavailable ALVERTO EDWARDS A Attending Unavailable Allergies Allergy Classification Reported Allergen(s) Allergy Type Date of Onset Reaction(s) Facility (20 sources) cerivastatin; Translations: [BAYCOL] Drug Allergy 01-18-2009 [facility] Work Phone: (20 sources) Metoprolol; Translations: [METOPROLOL] Drug Allergy 05-30-2021 Other: See Comments [facility] Medications Current Medications Medication Drug Class(es) Dates Sig (Normalized) Sig (Original) atorvastatin 80 mg oral tablet (20 sources) HMG-CoA Reductase Inhibitor Start: 11-07-2024 take 1 tablet by mouth at bedtime Start: 06-24-2022 End: 11-07-2024 Atorvastatin 40 mg tablet Discontinued 20 mg PO DAILY June 24, 2022 12:00am November 07, 2024 11:10am Start: 05-23-2021 End: 12-07-2023 take 1 tablet by mouth once daily at bedtime atorvastatin (LIPITOR) 40 mg tablet Indications: Mixed hyperlipidemia Take 1 tablet by mouth daily at bedtime. 90 tablet 1 05/30/2021 12/07/2023 Discontinued Comment on above: Take 40 mg by mouth daily at bedtime. Take 1 tablet by shira th daily at bedtime. benzonatate 100 mg oral capsule (4 sources) Non-narcotic Antitussive Start: End: take 1 capsule by mouth every eight hours as needed for cough benzonatate (TESSALON PERLE) 100 mg capsule Indications: Acute cough Take 1 capsule by mouth every 8 hours as needed for cough for up to 15 days. 30 capsule 12/13/2023 12/28/2023 Active Start: 01-30-2023 End: 06-07-2023 take 1 capsule by mouth every eight hours as needed benzonatate (TESSALON PERLES) 100 mg capsule Take 1 capsule by mouth three times a day as needed. 14 capsule 0 01/30/2023 06/07/2023 Discontinued 24 hr buPROPion hydrochloride 300 mg extended release oral tablet (20 sources) Aminoketone Start: 03-28-2021 End: 06-20-2024 take 1 tablet by mouth once daily Comment on above: TAKE 1 TABLET BY SHIRA TH ONCE DAILY IN THE MORNING Take 1 tablet by shira th once daily. TAKE 1 TABLET BY MOUTH ONCE DAILY IN THE MORNING carvedilol 6.25 mg oral tablet (20 sources) alpha-Adrenergic Josue, beta-Adrenergic Josue Start: 11-07-2024 take 1 tablet by mouth twice daily at mealtime Start: 11-07-2024 take 1 tablet by shira twice daily Start: 08-03-2024 End: 11-07-2024 take 2 tablets by mouth once daily, then take 2 tablets by mouth twice daily Carvedilol 3.125 mg tablet Discontinued 6.25 mg PO DAILY 1 August 03, 2024 9:36am November 07, 2024 11:11am Reduce carvedilol to 6.25 mg twice a day Start: 06-24-2022 End: 08-03-2024 take 4 tablets by mouth once daily Carvedilol 3.125 mg tablet Discontinued 12.5 mg PO DAILY June 24, 2022 12:00am August 03, 2024 9:37am Start: 06-24-2022 [facility] Carvedilol Active 12.5 MG PO DAILY June 24, 2022 12:00am Start: 05-23-2021 take 1 tablet by shira twice daily carvedilol (COREG) 3.125 mg tablet Take 3.125 mg by mouth twice daily. 05/23/2021 Active Comment on above: Take 3.125 mg by shira twice daily. 24 hr dilTIAZem hydrochloride 180 mg extended release oral capsule (8 sources) Calcium Channel Josue Start: 0 End: 2 take 1 capsule by mouth once daily Comment on above: Take 1 capsule by [facility] once daily. doxycycline monohydrate 100 mg oral capsule (2 sources) Tetracycline-clas s Drug Start: 4 End: 4 take 1 capsule by mouth twice daily doxycycline monohydrate (MONODOX) 100 mg capsule Indications: Acute cough Take 1 capsule by mouth two times a day for 5 days. 10 capsule 12/13/2023 12/18/2023 Active folic acid 1 mg oral tablet (20 sources) Start: 3 take 1 tablet by mouth once daily Folic Acid 1 mg tablet Active 1 mg PO DAILY June 24, 2022 12:00am Start: 11-16-2020 End: 06-20-2024 take 2 tablets by mouth once daily Comment on above: Take 2 tablets by [facility] once daily. hydroxyurea 500 mg oral capsule (16 sources) Antimetabolite Start: 08-03-2024 take 1 capsule by mouth once daily Start: 07-15-2024 End: 07-22-2024 take 2 capsules by mouth once daily hydroxyurea (HYDREA) 500 mg capsule Indications: Essential thrombocytosis (HCC) Take 2 capsules by mouth once daily. 60 capsule 2 07/22/2024 Active Start: 07-08-2024 End: 07-15-2024 take 1 capsule by mouth once daily hydroxyurea (HYDREA) 500 mg capsule Indications: Essential thrombocytosis (HCC) Take 1 capsule by mouth once daily. 30 capsule 2 07/08/2024 07/15/2024 Discontinued losartan potassium 50 mg ora l tablet (20 sources) Angiotensin 2 Receptor Josue Start: 06-24-2022 Start: 06-24-2022 take 50 mg by mouth once daily Losartan Active 50 MG PO DAILY June 24, 2022 12:00am Start: 05-01-2021 End: 05-30-2021 take 1 tablet by mouth once daily losartan (COZAAR) 25 mg tablet Indications: Essential hypertension Take 1 tablet by mouth once daily. 90 tablet 1 05/30/2021 Active Comment on above: Take 25 mg by mouth once daily. Take 1 tablet by shira once daily. Completed/Discontinued Medications Medication Drug Class(es) Dates Sig (Normalized) Sig (Original) acetaminophen 325 mg oral tablet (6 sources) Start: 11-28-2019 End: 11-06-2024 Acetaminophen 325 MG tablet Discontinued 650 mg PO EVERY 6 HOURS NEEDED as needed for Pain Score 1-10/Temp > 100.7 F 0 November 28, 2019 12:00am November 06, 2024 11:28am Start: 11-28-2019 take 650 mg by mouth every six hours as needed Acetaminophen Active 650 MG PO EVERY 6 HOURS NEEDED November 28, 2019 12:00am [id number] 200 actuat albuterol 0.09 mg/actuat metered dose inhaler (3 sources) beta2-Adrenergic Agonist Start: 01-30-2023 End: 06-07-2023 take 2 puff(s) by inhalation every four hours as needed for wheezing albuterol HFA (PROVENTIL HFA, VENTOLIN HFA) 90 mcg/actuation inhaler Inhale 2 Puffs as instructed every 4 hours as needed for wheezing/shortness of breath. 6.7 g 0 01/30/2023 06/07/2023 Discontinued Start: 11-16-2020 End: 05-30-2021 take 2 puff(s) by inhalation every six hours as needed for wheezing albuterol HFA (VENTOLIN HFA) 90 mcg/actuation inhaler Inhale 2 Puffs as instructed every 6 hours as needed for wheezing/shortness of breath. 18 g 2 11/16/2020 05/30/2021 Discontinued Comment on above: Inhale 2 Puffs as instructed every 6 leonor rs as needed for wheezing/shortness of breath. aspirin 81 mg oral tablet (20 sources) Platelet Aggregation Inhibitor, Nonsteroidal Anti-inflammatory Drug Start: 12-02-19 End: 06-25-19 take 1 capsule by mouth once daily aspirin 81 mg cap Take 1 capsule by mouth once daily. 12/01/2022 06/24/2024 Discontinued (Course of therapy completed) Start: 05-01-2021 End: 07-17-2022 take 1 tablet by mouth once daily Comment on above: Take 81 mg by mouth once daily. Take 1 tablet by shira once daily. Take 1 capsule by [facility] once daily. dexamethasone 4 mg oral tablet (6 sources) Corticosteroid Start: 11-28-19 End: 08-04-19 take 6 mg by mouth once daily Dexamethasone 4 MG tablet Discontinued 6 mg PO DAILY@0800 15 November 28, 2019 12:00am August 03, 2024 2:14am Start: 11-28-2019 take 6 mg by mouth once daily Dexamethasone Active 6 MG PO DAILY@0800 November 28, 2019 12:00am omeprazole 40 mg delayed release oral capsule (8 sources) Proton Pump Inhibitor Start: 06-24-2022 End: 08-03-2024 take 1 capsule by mouth once daily Omeprazole 40 mg capsule,delayed release(DR/EC) Discontinued 40 mg PO DAILY 30 June 24, 2022 12:00am August 03, 2024 2:15am Comment on above: Take 1 capsule by [facility] once daily. Take 40 mg by mouth once daily. Problems Active Problems Problem Classification Problem Date Documented Da te Episodic/Chronic Acute myocardial infarction (10 sources) Myocardial infarction; Translations: [Non-ST elevation (NSTEMI) myocardial infarction] Onset: 5 Chronic Anxiety disorders (20 sources) Mixed anxiety and depressive disorder; Translations: [Other specified anxiety disorders] Onset: 3 Chronic Asthma (20 sources) Mild intermittent asthma; Translations: [Mild intermittent asthma, uncomplicated] Onset: 5 Resolved: 5 11-30-2014 Chronic Chronic kidney disease (13 sources) Chronic kidney disease stage 3A ; Translations: [Stage 3a chronic kidney disease (HCC)] Onset: 5 06-03-2024 Chronic Chronic kidney disease (1 source) Chronic kidney disease; Translations: [Stage 3a chronic kidney disease (HCC)] Onset: 5 Conditions associated with dizziness or vertigo (8 sources) Loss of equilibrium; Translations: [Dizziness and giddiness] Onset: 5 11-06-2024 Episodic Coronary atherosclerosis and other heart disease (20 sources) Coronary artery spasm; Translations: [Angina pectoris with documented spasm] Onset: 3 Chronic Diseases of white blood cells (10 sources) Leukocytosis; Translations: [Elevated white blood cell count, unspecified] Onset: 5 12-14-2023 Chronic Disorders of lipid metabolism (20 sources) Mixed hyperlipidemia; Translations: [Mixed hyperlipidemia] Onset: 5 Resolved: 7 Chronic Essential hypertension (20 sources) Essential hypertension; Translations: [Essential (primary) hypertension] Onset: 0 Resolved: 0 Chronic Gastrointestinal hemorrhage (20 sources) Gastrointestinal hemorrhage; Translations: [Gastrointestinal hemorrhage, unspecified] Onset: 3 06-24-2022 Episodic Heart valve disorders (10 sources) Aortic valve stenosis; Translations: [Nonrheumatic aortic (valve) stenosis] 06-23-2024 Chronic Immunizations and screening for infectious disease (7 sources) Needs influenza immunization; Translations: [Encounter for immunization] Episodic Neoplasms of unspecified nature or uncertain behavior (8 sources) Thrombocytosis; Translations: [Essential thrombocythemia] Onset: 4 06-20-2024 Chronic Neoplasms of unspecified nature or uncertain behavior (5 sources) Thrombocytosis; Translations: [Thrombocytosis] 12-07-2023 Episodic Other hematologic conditions (1 source) Myelofibrosis; Translations: [Myelofibrosis] 07-08-2024 Chronic Other liver diseases (1 source) Elevated liver enzymes level; Translations: [Abnormal levels of other serum enzymes] 12-01-2022 Episodic Other lower respiratory disease (2 sources) Dyspnea on exertion; Translations: [Dyspnea, unspecified] Episodic Other lower respiratory disease (1 source) Cough; Translations: [Acute cough] 01-30-2023 Episodic Other lower respiratory disease (1 source) Cough; Translations: [Acute cough] 12-13-2023 Episodic Other nutritional; endocrine; and metabolic disorders (20 sources) Body mass index 25-29 - overweight; Translations: [Overweight] 12-01-2016 Episodic Other screening for suspected conditions (not mental disorders or infectious disease) (9 sources) Patient encounter status; Translations: [Encounter for screening for malignant neoplasm of colon] Onset: 5 Episodic Kaelyn-; endo-; and myocarditis; cardiomyopathy (except that caused by tuberculosis or sexually transmitted disease) (20 sources) Cardiomyopathy; Translations: [Other cardiomyopathies] Onset: 2 Chronic Residual codes; unclassified (20 sources) Chews tobacco ; Translations: [Tobacco use] 12-01-2016 Episodic Syncope (12 sources) Syncope and collapse; Translations: [Syncope and collapse] Onset: 5 08-03-2024 Episodic Unclassified (3 sources) I21.4 - Non-ST elevation (NSTEMI) myocardial infarction,I25.10 - Atherosclerotic heart disease of [place] coronary artery without angina pectoris,I10 - Essential (primary) hypertension Unclassified (3 sources) Follow up limited ECHO in 6 weeks Unclassified (1 source) Acute cough; Translations: [Acute cough] Onset: 5 Viral infection (6 sources) Disease caused by 2019-nCoV; Translations: [COVID-19] 11-28-2019 Episodic Past or Other Problems Problem Classification Problem Date Documented Da te Episodic/Chronic Cardiac dysrhythmias (11 sources) Bradycardia; Translations: [Bradycardia, unspecified] Onset: 08-04-2024 08-03-2024 Episodic E Codes: Adverse effects of medical drugs (11 sources) Adverse reaction to drug; Translations: [Adverse effect of unspecified drugs, medicaments and biological substances, initial encounter] Onset: 08-04-2024 08-03-2024 Episodic Fracture of upper limb (20 sources) Closed fracture of distal end of radius; Translations: [Other fractures of lower end of unspecified radius, initial encounter for closed fracture] Onset: 09-07-2004 Resolved: 09-03-2018 09-03-2018 Episodic Heart valve disorders (2 sources) Heart murmur; Translations: [Cardiac murmur, unspecified] Onset: 06-20-2024 06-20-2024 Episodic Malaise and fatigue (20 sources) Fatigue; Translations: [Other fatigue] Onset: 08-04-2024 08-03-2024 Episodic Nutritional deficiencies (2 sources) Folic acid deficiency; Translations: [Deficiency of other specified B group vitamins] Onset: 06-20-2024 06-20-2024 Episodic Other connective tissue disease (20 sources) Pain in limb; Translations: [Pain in unspecified limb] Onset: 09-28-2004 09-28-2004 Episodic Other gastrointestinal disorders (20 sources) Dark stools; Translations: [Other fecal abnormalities] Onset: 07-06-2022 07-06-2022 Episodic Results Test Name Value Interpretation Reference Range Facility [facility] 11-24-2024 [facility] Office Visit (FAMPWS ) HUSAM BARROW ([id number]) 1950 M Date Time Provider Department 11/24/24 1:20 PM [facility] During your visit today, we recorded the following information about you: Pulse Respiration Blood pressure Weight 70/minute 16/minute 126/74 81.6 kg Brien Singer MD 11/24/2024 1:07 PM Signed Chief Complaint Patient presents with: 6 Month Exam HPI Husam Barrow is a 74 year old male who presents here today for 6 month follow up. Declined Flu vaccine. 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 No bowel, Gi, or urinary issues. HTN: Taking Coreg 3.125 mg 1 pill BID and Losartan 25 mg daily. No chest pains, dizziness, or Shortness of Breath. Report low BP many days; feels bad if systolic is under 100-110. Depression/MAKENZIE: Stable on Wellbutrin 300 mg daily. Follows with Hem/Onc Dr. Edwards for thrombocytosis. Taking Hydrea 500 mg daily; dmitriy not tolerate higher dose. Was recently admitted to [facility] 11/06/24 and discharged 11/07/24 for Non-STEMI, Leukocytosis, Disequilibrium (records in scanned docs). Advised to follow up with [facility]. Has hospital follow up with Cardio this week. Had heart cath showing no significant blockage. Cough: has had a dry cough x 1 month. He has had the cough since admission. Past medical history, appointments, medications, allergies reviewed. Previous Medical History PAST MEDICAL HISTORY Diagnosis Date Aortic stenosis echo 2024 Blood in stool Chewing tobacco use Coronary artery spasm Hypertension 02/02/2010 Myeloproliferative neoplasm (HCC) bone marrow biospy 2024 Non-STEMI (non-ST elevated myocardial infarction) (HCC) Osteoarthritis, knee bilateral, seeing [facility] Overweight (BMI 25.0-29.9) Pure hypercholesterolemia Syncope 1999 x3 Thrombocytosis Unspecified asthma(493.90) Unspecified essential hypertension Previous Surgical History PAST SURGICAL HISTORY Procedure Laterality Date ARTHROSCOPY KNEE DIAGNOSTIC W/WO SYNOVIAL BX SPX Arthroscopy, knee COLONOSCOPY 2008 normal, repeat in 10 years COLONOSCOPY N/A 07/06/2022 COLONOSCOPY FLX DX W/COLLJ SPEC WHEN PFRMD 2003 Colonoscopy EGD W/O [facility] SPEC VARICIES INJ N/A 07/06/2022 PAST SURGICAL HISTORY OF 1998 heart cath PAST SURGICAL HISTORY OF 2005 repair fx left foearm plate and screw PAST SURGICAL HISTORY OF N/A 02/2021 Heart Cath in [place] TONSILLECTOMY AND ADENOIDECTOMY Family History FAMILY HISTORY Problem Relation Age of Onset Heart Mother CHF Patient Allergies ALLERGIES Allergen Reactions Toprol Xl [Metoprol* Other: See Comments General illness, felt lousy, GI upset Baycol Current Medications Current Outpatient Medications on File Prior to Visit Medication Sig hydroxyurea (HYDREA) 500 mg capsule Take 2 capsules by mouth once daily. (Patient taking differently: Take 500 mg by mouth once daily.) buPROPion XL (WELLBUTRIN XL) 300 mg 24 hr tablet Take 1 tablet by mouth once daily. folic acid 1 mg tablet Take 2 tablets by mouth once daily. carvedilol (COREG) 3.125 mg tablet Take 3.125 mg by mouth twice daily. losartan (COZAAR) 25 mg tablet Take 1 tablet by mouth once daily. No current facility-administered medications on file prior to visit. Social History SOCIAL HISTORY[1] EXAM: BP 126/74 Pulse 70 Resp 16 Wt 81.6 kg (179 lb 14.3 oz) BMI 26.37 kg/m? General Appearance: Well appearing, alert, in no acute distress, well-hydrated, well nourished.. Lungs: Lungs clear to auscultation. No wheezing, rhonchi, rales.. Heart: RRR without murmur, gallop, or rubs. No ectopy. Health Maintenance List Hepatitis C Screening Never done Shingrix Vaccine(1 of 2) Never done DTaP,Tdap,Td Vaccine(2 - Td or Tdap) due on 10/10/2016 RSV Vaccine(1 - 1-dose 75+ series) Never done Advance Directive Discussion due on 02/13/2024 Covid-19 Vaccine(2024- season) Never done Influenza Vaccine(1) due on 08/11/2025 Serum Creatinine due on 06/16/2025 Annual PCP Team Chronic Disease Visit due on 06/20/2025 Hemoglobin/Hematocrit due on 10/17/2025 Diabetes Screening due on 06/17/2027 Pneumococcal Vaccine: 50+ Completed Colorectal Cancer Screening Discontinued Data reviewed none Recording using RightSignature software for draft documentation of the visit was discussed with the patient/authorized sales representative door to door; all questions welcomed and answered. Patient/authorized sales representative door to door agreed to proceed 1. Essential hypertension (I10) 2. Nonischemic cardiomyopathy (HCC) (I42.8) BP has been variable, with recent episodes of hypotension (as low as 80/40 mmHg) associated with dizziness and malaise, and more recent readings in the 120s/70s associated with improved well-being. Patient is currently on carvedilol and losartan for heart and blood pressure management. Recent cardiac (more content not included)... Normal [facility] Absolute lymphocyte countOrd ered By: Erick Monsivais on 11-07-2024 Lymphocytes Auto (Unsp spec) [#/Vol] 1.19 10*3/uL 0.83-4.51 [facility] Absolute neutrophil countOrd ered By: Erickneptali Monsivais on 11-07-2024 Neutrophils (Bld) [#/Vol] 7.3 10*3/uL 2.0-7.7 [facility] Anion gap in Serum or Plasma Ordered By: Katty Mcbride on 11-07-2024 Anion gap [Moles/Vol] 9 mmol/L 5-15 [facility] Automated lymphocyte count a s percentage of total leukocytesOrdered By: Erick Monsivais on 11-07-2024 Lymphocytes/100 WBC Auto (Unsp spec) 11.4 % Low - [facility] BUN/creatinine ratioOrdered By: Katty Mcbride on 11-07-2024 Urea nitrogen/Creatinine [Mass ratio] 14.9 mg/mg 10- [facility] Basophil percentageOrdered B y: Erick Monsivais on 11-07-2024 Basophils/100 WBC (Bld) 0.4 % 0-1 [facility] Bilirubin, totalOrdered By: Katty Mcbride on 11-07-2024 Bilirubin [Mass/Vol] 0.53 mg/dL 0.00-1.30 [facility] CBC W/Diff, Automatedon 10-14 Absolute Lymph 1.19 X10 3/uL Normal 0.83-4.51 [facility] Comment on above: Performed By: #### L [id number] #### [facility] [address] [place], [address] Absolute Neut 7.3 X10 3/uL Normal 2.0-7.7 [facility] Comment on above: Performed By: #### L [id number] #### [facility] [address] [place], [address] Basophils/100 WBC (Bld) 0.4 % Normal 0-1 [facility] Comment on above: Performed By: #### L [id number] #### [facility] [address] [place], [address] Eosinophils/100 WBC (Bld) 4.5 % Normal 0-5 [facility] Comment on above: Performed By: #### L [id number] #### [facility] [address] [place], [address] Erythrocyte distribution width (RBC) [Ratio] 15.3 % High 11.6-14.6 [facility] Comment on above: Performed By: #### L [id number] #### [facility] [address] [place], [address] Hematocrit (Bld) [Volume fraction] 34.0 % Low 40-54 [facility] Comment on above: Performed By: #### L [id number] #### [facility] [address] [place], [address] Hemoglobin (Bld) [Mass/Vol] 11.7 g/dL Low 13.0-16.5 [facility] Comment on above: Performed By: #### L [id number] #### [facility] [address] [place], [address] IG% 0.500 Normal 0.0-0.9 [facility] Comment on above: Result Comment: IG% - Immature Granulocytes (promyelocytes, myelocytes and metamyelocytes) > 1% indicates that a LEFT SHIFT is Present. Performed By: #### L 499.0042 #### [facility] [address] [place], [address] Lymphocytes/100 WBC (Bld) 11.4 % Low 19-41 [facility] Comment on above: Performed By: #### L 499.0042 #### [facility] [address] [place], [address] MCH (RBC) [Entitic mass] 37.5 pg High 27.0-32.0 [facility] Comment on above: Performed By: #### L 499.0042 #### [facility] [address] [place], [address] MCHC (RBC) [Mass/Vol] 34.4 g/dL Normal 32-36 [facility] Comment on above: Performed By: #### L 499.0042 #### [facility] [address] [place], [address] MCV (RBC) [Entitic vol] 109.0 fL High 80-94 [facility] Comment on above: Performed By: #### L 499.0042 #### [facility] [address] [place], [address] Monocytes/100 WBC (Bld) 13.0 % High 0-10 [facility] Comment on above: Performed By: #### L 499.0042 #### [facility] [address] [place], [address] Neutrophils/100 WBC (Bld) 70.2 % High 47-70 [facility] Comment on above: Performed By: #### L 499.0042 #### [facility] [address] [place], [address] Nucleated RBC (Bld) [#/Vol] 0 10*3/uL Normal 0-5 [facility] Comment on above: Performed By: #### L 499.0042 #### [facility] [address] [place], [address] Platelet mean volume (Bld) [Entitic vol] 9.3 fL Normal 6.2-12.0 [facility] Comment on above: Performed By: #### L 499.0042 #### [facility] [address] [place], [address] Platelets (Bld) [#/Vol] 386 10*3/uL Normal 150-450 [facility] Comment on above: Performed By: #### L 499.0042 #### [facility] [address] [place], [place], [address] RBC (Bld) [#/Vol] 3.12 10*6/uL Low 4.6-6.2 [facility] Comment on above: Performed By: #### L 499.0042 #### [facility] [address] [place], [place], [address] RDW SD 61.1 fl High 35.1-43.9 [facility] Comment on above: Performed By: #### L 499.0042 #### [facility] [address] [place], [address] WBC (Bld) [#/Vol] 10.5 10*3/uL Normal 4.4-11.0 [facility] Comment on above: Performed By: #### L 499.0042 #### [facility] [address] [place], [address] Calculated very low density lipoprotein (VLDL) cholesterol measurementOrdered By: Katty Mcbride on 11-07-2024 Calculated very low density lipoprotein (VLDL) cholesterol measurement 17 mg/dL 5-40 [facility] Carbon dioxide, total [Moles /volume] in Central venous bloodOrdered By: Katty Mcbride on 11-07-2024 CO2 [Moles/Vol] 21.4 mmol/L 21.0-32.0 [facility] Cardiac catheterization repo rtOrdered By: Clinton Duran on 11-07-2024 Cardiac catheterization study [facility] Imaging Services [address] [place] [address] Cardiac Cath Diagnostic MR#: [id number] Acct: [id number] Name: HUSAM BARROW Rep #:[id number] : 1950 74 From: Clinton Duran MD PCP: Dr. Brien Singer MD Status:[facility] Patient Name: HUSAM BARROW Study Date: 11/06/2024 Performing: Clinton Duran MD Ht: 71 inches 180.34 cm : 1950 Wt: 189.6 lbs 85.9 kg Age: 74 Gender: male BSA: 2.06 PROCEDURE(S) PERFORMED DC01-(98592)LHC/COR/LV CLINICAL PROFILE AND INDICATIONS Indications: ACS <= 24 hrs Heart Failure: None Stress/Imaging Stress/Image Study Performed: No Angina Classification Anginal Classification w/in 2 Weeks: No symptoms CAD Presentations: Other: CONCLUSIONS 10% Prox LAD 30-40% Mid RCA LVEF 60%. Mild posterior basal hypokinesis RECOMMENDATIONS Risk factor modification Medical therapy DESCRIPTION OF PROCEDURE The patient arrived to the procedure lab. The risks and benefits of the procedure as well as a full description of our services here and current unavailability of surgical backup were fully explained to the patient and/or their significant other prior to the catheterization. The Timeout was completed, verifying the correct patient and procedure. The patient's procedural site was prepped and draped in the usual fashion. Local anesthetic was given subcutaneously to right radial region with Lidocaine 2%. Using a modified Seldinger technique, Left Coronary Artery selective angiography was performed in multiple views using a 5 Fr. 4.0 [place] catheter. Left Coronary Artery selective angiography was performed in multiple views using a 5 Fr. JL4 catheter. Right Coronary Artery selective angiography was then performed in multiple views using a 5 Fr. 3DRC (Micky) catheter. Left Ventriculography was performed in SANTAMARIA projection using a 5 Fr. Pigtail catheter.The arterial sheath was pulled and a TR Band was applied for hemostasis w /10ml air CORONARY ANGIOGRAPHY DOMINANCE: Right Dominant LEFT HEART ASSESSMENT Left Ventricular Ejection Fraction: by LV Gram 60 % Posterior Basal Hypokinesis - Mild LVEDP: 17 mmHg LEFT MAIN: Angiographically normal LEFT ANTERIOR DESCENDING ARTERY: LAD: Tubular 10% Proximal lesion in LAD CIRCUMFLEX ARTERY: Angiographically normal RIGHT CORONARY ARTERY: RCA: Tubular 40% Mid lesion in RCA COMPLICATIONS No Complications PROCEDURE MEDICATIONS Versed 1 mg IV Fentanyl 50 mcg IV Oxygen: 2 L/min via nasal cannula Heparin given IA 11/06/2024 13:25:48 Verapamil 2.5mg, Ntg 200mcgs, 2000 units of Heparin given IA 11/06/2024 13:25:48 SUMMARY OF HEMODYNAMIC DATA Time AIR REST ECG 13:07:05 AO 108/74 (89) SA 13:29:28 AO 107/69 (85) 13:39:28 LV 135/5, 17 13:42:23 LV 133/6, 17 13:42:31 Signed By Clinton Duran MD On 11/06/2024 14:25:44 Clinton Duran MD 11/06/24 1426 Date _ Clinton Duran MD Cosigner Signature: Date (if indicated) CC: Dr. Clinton Duran MD; Dr. Brien Singer MD ~ Date Dictated: 11/06/24 1316 Date Transcribed: 11/06/241424 Salt Lifter: TATIANA Signed [facility] Work Phone: Chloride assayOrdered By: Maile Mcbride on 11-07-2024 Chloride [Moles/Vol] 105 mmol/L 98-108 [facility] Comprehensive Metabolic Prof ilon 11-07-2024 Albumin [Mass/Vol] 3.0 g/dL Low 3.4-4.8 [facility] Comment on above: Performed By: #### L 500.4050, L500.4100, L501.2300, L501.9520, L501.5200, L300.8000 #### [facility] [address] [place], [address] Albumin/Globulin [Mass ratio] 1.1 {ratio} Normal 0.9-2.4 [facility] Comment on above: Performed By: #### L 500.4050, L500.4100, L501.2300, L501.9520, L501.5200, L300.8000 #### [facility] [address] [place], [address] ALK PHOS 129 U/L Normal 40-129 [facility] Comment on above: Performed By: #### L 500.4050, L500.4100, L501.2300, L501.9520, L501.5200, L300.8000 #### [facility] [address] [place], [address] ALT [Catalytic activity/Vol] 38 U/L Normal <=46 [facility] Comment on above: Performed By: #### L 500.4050, L500.4100, L501.2300, L501.9520, L501.5200, L300.8000 #### [facility] [address] [place], [address] AST [Catalytic activity/Vol] 47 U/L High <=37 [facility] Comment on above: Performed By: #### L 500.4050, L500.4100, L501.2300, L501.9520, L501.5200, L300.8000 #### [facility] [address] [place], [address] Bilirubin [Mass/Vol] 0.53 mg/dL Normal 0.00-1.30 [facility] Comment on above: Performed By: #### L 500.4050, L500.4100, L501.2300, L501.9520, L501.5200, L300.8000 #### [facility] [address] [place], [address] BUN/CRE 14.9 RATIO Normal 10-20 [facility] Comment on above: Performed By: #### L 500.4050, L500.4100, L501.2300, L501.9520, L501.5200, L300.8000 #### [facility] [address] [place], [address] Calcium [Mass/Vol] 8.2 mg/dL Normal 7.6-11.0 [facility] Comment on above: Performed By: #### L 500.4050, L500.4100, L501.2300, L501.9520, L501.5200, L300.8000 #### [facility] [address] [place], [address] Chloride [Moles/Vol] 105 mmol/L Normal 98-108 [facility] Comment on above: Performed By: #### L 500.4050, L500.4100, L501.2300, L501.9520, L501.5200, L300.8000 #### [facility] [address] [place], [address] CO2 [Moles/Vol] 21.4 mmol/L Normal 21.0-32.0 [facility] Comment on above: Performed By: #### L 500.4050, L500.4100, L501.2300, L501.9520, L501.5200, L300.8000 #### [facility] [address] [place], [address] Creatinine [Mass/Vol] 1.00 mg/dL Normal 0.70-1.20 [facility] Comment on above: Performed By: #### L 500.4050, L500.4100, L501.2300, L501.9520, L501.5200, L300.8000 #### [facility] [address] [place], [address] ECRCL 66.93 ml/min Normal 50-250 [facility] Comment on above: Performed By: #### L 500.4050, L500.4100, L501.2300, L501.9520, L501.5200, L300.8000 #### [facility] [address] [place], [address] GAP 9 Normal 5-15 [facility] Comment on above: Performed By: #### L 500.4050, L500.4100, L501.2300, L501.9520, L501.5200, L300.8000 #### [facility] [address] [place], [address] GFR/1.73 sq M.predicted among non-blacks MDRD (S/P/Bld) [Vol rate/Area] 78 mL/min/{1.73_m2} Normal >60 [facility] Comment on above: Result Comment: mL/m in/1.73m2 CKD-EPI Creatinine Equation (2020) Performed By: #### L 500.4050, L500.4100, L501.2300, L501.9520, L501.5200, L300.8000 #### [facility] [address] [place], [address] Globulin (S) [Mass/Vol] 2.8 g/dL Normal 2.2-4.2 [facility] Comment on above: Performed By: #### L 500.4050, L500.4100, L501.2300, L501.9520, L501.5200, L300.8000 #### [facility] [address] [place], [address] Glucose [Mass/Vol] 96 mg/dL Normal 70-99 [facility] Comment on above: Performed By: #### L 500.4050, L500.4100, L501.2300, L501.9520, L501.5200, L300.8000 #### [facility] [address] [place], [address] Potassium [Moles/Vol] 4.1 mmol/L Normal 3.3-5.1 [facility] Comment on above: Performed By: #### L 500.4050, L500.4100, L501.2300, L501.9520, L501.5200, L300.8000 #### [facility] [address] [place], [address] Sodium [Moles/Vol] 136 mmol/L Normal 133-145 [facility] Comment on above: Performed By: #### L 500.4050, L500.4100, L501.2300, L501.9520, L501.5200, L300.8000 #### [facility] [address] [place], [address] T PROT 5.9 g/dL Normal 5.9-8.4 [facility] Comment on above: Performed By: #### L 500.4050, L500.4100, L501.2300, L501.9520, L501.5200, L300.8000 #### [facility] [address] [place], [address] Urea nitrogen [Mass/Vol] 15 mg/dL Normal 4-19 [facility] Comment on above: Performed By: #### L 500.4050, L500.4100, L501.2300, L501.9520, L501.5200, L300.8000 #### [facility] [address] [place], [address] D-Dimer Quantitative (DVT/PE )on 11-07-2024 D-DIMER QUANT 1.27 FEU/ug/m Invalid Interpretation Code 0.27-0.49 [facility] Comment on above: Result Comment: CRIT ICAL VALUE CALLED TO AREAD 11/07/24 0546 Moncho Watkins. RESULTS READ BACK BY SAME. D-Dimer ELEVATED (>0.49): Additional studies and clinical assessments are indicated to conclude diagnosis of: Deep Vein Thrombosis (DVT) or Pulmonary Embolism (PE) Performed By: #### L 500.4050, L500.4100, L501.2300, L501.9520, L501.5200, L300.8000 #### [facility] [address] [place], [address] Discharge Instructionon 10-14 Discharge Instruction [facility] Medical Records Department [address] [place] [address] Instructions for Home/Discharge Instructions 11/07/24 1109 MR#: [id number] Acct: [id number] Name: HUSAM BARROW Rep #: [id number] : 1950 74 From: Scott Gunn MD PCP: Dr. Brien Singer MD Status:ADM IN Discharge Instructions DC O2, CPAP, BIPAP needs Home O2 Discharge instructions: No Dressing / Incision Discharge Activity: Return to Normal Activity Weight Bearing Status: Weight bearing as tolerated Dressing / Incision Call your doctor if you observe: Fever of 101 or Higher, Coldness, Increased Pain, Numbness or Tingling, Change in Color, Inability to urinate, Inability to have a bowel movement, Shortness of breath, Dizziness, Fainting spells, Swelling in the ankles, Chest pain, Prolonged hiccupping, Increased palpitations (irregular heartbeat) and Calf discomfort Follow Up Care When: IN 2 WEEKS Test Results: Test results from this visit will be discussed in further detail at your follow-up appointment, if applicable. Discharge Plan Admission Admit Date/Time: 11/06/24 11:35 Attending Provider: Scott Gunn Primary Care Provider: Brien Singer Consulting Providers: Lance Garrett; Katty Mcbride Discharge Orders/Prescriptions Prescriptions: New atorvastatin 80 mg Tablet 80 mg PO QHS 30 Days Qty: 30 2RF carvedilol 6.25 mg Tablet 6.25 mg PO BIDCM 30 Days Qty: 60 2RF Continued diltiazem HCl 180 MG capsule,extended release 24hr 1 cap PO DAILY Patient Comments: TAKE 1 CAPSULE BY MOUTH ONCE DAILY losartan 50 mg tablet 25 mg PO DAILY Patient Comments: TAKE 1 TABLET BY MOUTH ONCE DAILY aspirin 81 mg tablet,delayed release (DR/EC) 81 mg PO DAILY Patient Comments: TAKE 1 TABLET BY MOUTH ONCE DAILY folic acid 1 mg tablet 2 mg PO DAILY Patient Comments: TAKE 2 TABLETS BY MOUTH ONCE DAILY bupropion HCl 300 mg tablet extended release 24 hr 300 mg PO DAILY Patient Comments: TAKE 1 TABLET BY MOUTH ONCE DAILY hydroxyurea 500 mg capsule 500 mg PO DAILY Discontinued atorvastatin 40 mg tablet 20 mg PO DAILY Patient Comments: TAKE 1 TABLET BY MOUTH ONCE DAILY AT BEDTIME carvedilol 3.125 mg tablet 6.25 mg PO DAILY Qty: 1 0RF Patient Comments: TAKE 1 TABLET BY MOUTH TWICE DAILY Rx Instructions: Reduce carvedilol to 6.25 mg twice a day Referrals / Follow Up: Brien Singer MD [Primary Care Provider, Family Practice] Lance Garrett MD [Med Staff - Active Staff, Cardiology] - Within 3 Months Referral Note: Follow up limited ECHO in 6 weeks Nellie Mcknight PA [Med Staff - Adv Practice Prof, Cardiology] Carlos Manuel Sanders PA [Med Staff - Adv Practice Prof, Cardiology] - Within 1 Month Disposition Disposition (needs filled in before D/C Order can be placed): Home, Self Care 11/07/24 1118 Scott Gunn MD CC: Dr. Katty Mcbride DO; Dr. Brien Singer MD; Dr. Lance Garrett MD Signed Normal [facility] Electrocardiogram reportOrde red By: Lance Garrett on 11-07-2024 EKG study [facility] Cardiovascular Services [address] [place] [address] 12 Lead EKG 11/06/24 1004 MR#: [id number] Acct: [id number] Name: HUSAM BARROW Rep #:[id number] : 1950 74 From: Lance thompson MD Attending Dr: Dr. Katty Mcbride DO S tatus: ADM IN Ordering Dr: Erick Monsivais DO Date: 0 11/06/24 Location: U Sex: M C Admitted: 11/06/24 Test Reason : Blood Pressure : */* mmHG Vent. Rate : 56 BPM Atrial Rate : 56 BPM P-R Int : 160 ms QRS Dur : 130 ms QT Int : 444 ms P-R-T Axes : 51 15 10 degrees QTcB Int : 428 ms Sinus bradycardia Right bundle branch block Abnormal ECG Confirmed by Lance Garrett ([id number]), editor trade journal WENDY RYDER ([id number]) on :49:05 AM Referred By: Katty Mcbride Confirmed By: Lance Garrett 11/07/24 0549 Date _ Lance Garrett MD CC: Dr. Erick Monsivais, DO; Dr. Katty Mcbride, DO; Dr. Brien Singer MD ~ Signed [facility] Work Phone: [phone] Eosinophil percentageOrdered By: Erick Monsivais on 11-07-2024 Eosinophils/100 WBC (Bld) 4.5 % 0-5 [facility] Erythrocyte distribution wid th ratioOrdered By: Erick Monsivais on 11-07-2024 Erythrocyte distribution width (RBC) [Ratio] 15.3 % High 11.6-14.6 [facility] Erythrocyte distribution wid th standard deviationOrdered By: Erick Monsivais on 11-07-2024 Erythrocyte distribution width (RBC) [Ratio] 61.1 fl High 35.1-43.9 [facility] Glomerular filtration rate ( GFR) estimation/1.73 sq m using serum, plasma, or whole bOrdered By: Katty Mcbride on 11-07-2024 GFR/1.73 sq M.predicted among non-blacks MDRD (S/P/Bld) [Vol rate/Area] 78 mL/min/{1.73_m2} >60 [facility] Comment on above: mL/min/1.73m2 CKD-EP I Creatinine Equation (2020) Hematocrit Auto (Bld) [Volum e fraction]Ordered By: Erick Monsivais on 11-07-2024 Hematocrit (Bld) [Volume fraction] 34.0 % Low 40-54 [facility] Hemoglobin measurementOrdere d By: Erick Monsivais on 11-07-2024 Hemoglobin (Bld) [Mass/Vol] 11.7 g/dL Low 13.0-16.5 [facility] Immature granulocytes/100 WB C Auto (Bld)Ordered By: Erick Monsivais on 11-07-2024 Immature granulocytes/100 WBC (Bld) 0.500 % 0.0-0.9 [facility] Comment on above: IG% - Immature Granu locytes (promyelocytes, myelocytes and metamyelocytes) > 1% indicates that a LEFT SHIFT is Present. LDL calc ser/plasOrdered By: Katty Mcbride on 11-07-2024 Cholesterol in LDL [Mass/Vol] 50 mg/dL [facility] Comment on above: Ggnbowsznq=517-055 m g/dL & Higher Iiae=512 mg/dL or greaterFriedwald Equation for LDL-C Laboratory - Chemistry and C hemistry - challengeOrdered By: Katty Mcbride on 11-07-2024 AST [Catalytic activity/Vol] 47 U/L High <38 [facility] Lipid Profileon 11-07-2024 CHOL:HDL 3.29 Normal [facility] Comment on above: Performed By: #### L 500.4050, L500.4100, L501.2300, L501.9520, L501.5200, L300.8000 #### [facility] [address] [place], [address] Cholesterol [Mass/Vol] 96 mg/dL Normal <=200 [facility] Comment on above: Result Comment: Chol esterol level, Desirable <200 mg/dL Borderline high cholesterol 200-239 mg/dL High cholesterol >=240 mg/dL Recommendations of the NCEP Adult Treatment Panel for the following risk-cutoff thresholds for the [place] population. Performed By: #### L 500.4050, L500.4100, L501.2300, L501.9520, L501.5200, L300.8000 #### [facility] [address] [place], [address] Cholesterol in HDL [Mass/Vol] 29 mg/dL Low [facility] Comment on above: Result Comment: Milly onal Cholesterol Education Program (NCEP) guidelines: <40 mg/dL: Low HDL-cholesterol (major risk factor for CHD) >= 60 mg/dL: High HDL-cholesterol (negative risk factor for CHD) HDL-cholesterol is affected by a number of factors, e.g. smoking, exercise, hormones, sex and age. Performed By: #### L 500.4050, L500.4100, L501.2300, L501.9520, L501.5200, L300.8000 #### [facility] [address] [place], [address] Cholesterol in LDL [Mass/Vol] 50 mg/dL Normal [facility] Comment on above: Result Comment: Bord kanszh=141-686 mg/dL Higher Hynr=536 mg/dL or greater Friedwald Equation for LDL-C Performed By: #### L 500.4050, L500.4100, L501.2300, L501.9520, L501.5200, L300.8000 #### [facility] [address] [place], [address] Cholesterol in VLDL [Mass/Vol] 17 mg/dL Normal 5-40 [facility] Comment on above: Performed By: #### L 500.4050, L500.4100, L501.2300, L501.9520, L501.5200, L300.8000 #### [facility] [address] [place], [address] Triglyceride [Mass/Vol] 87 mg/dL Normal [facility] Comment on above: Result Comment: The drugs N-Acetylcysteine and Metamizole may falsely depress this assay. Normal range: <150 mg/dL Borderline High: 150-199 mg/dL High: 200-499 mg/dL Very High: >500 mg/dL Performed By: #### L 500.4050, L500.4100, L501.2300, L501.9520, L501.5200, L300.8000 #### [facility] [address] [place], [address] MCV (mean corpuscular volume ) determinationOrdered By: Erick Monsivais on 11-07-2024 MCV (RBC) [Entitic vol] 109.0 fL High 80-94 [facility] Magnesiumon 11-07-2024 Magnesium [Mass/Vol] 2.2 mg/dL Normal 1.5-2.2 [facility] Comment on above: Performed By: #### L 500.4050, L500.4100, L501.2300, L501.9520, L501.5200, L300.8000 #### [facility] [address] [place], [address] Magnesium measurement (mass/ volume)Ordered By: Katty Mcbride on 11-07-2024 Magnesium (Unsp spec) [Mass/Vol] 2.2 mg/dL 1.5-2.2 [facility] Mean corpuscular hemoglobin (MCH) determinationOrdered By: Erick Monsivais on 11-07-2024 MCH (RBC) [Entitic mass] 37.5 pg High 27.0-32.0 [facility] Mean corpuscular hemoglobin concentration (MCHC) determinationOrdered By: Erick Monsivais on 11-07-2024 MCHC (RBC) [Mass/Vol] 34.4 g/dL 32-36 [facility] Mean platelet volume determi nationOrdered By: Erick Monsivais on 11-07-2024 Platelet mean volume (Bld) [Entitic vol] 9.3 fL 6.2-12.0 [facility] Monocyte percentageOrdered B y: Erick Monsivais on 11-07-2024 Monocytes/100 WBC (Bld) 13.0 % High 0-10 [facility] Neutrophil percentageOrdered By: Erick Monsivais on 11-07-2024 Neutrophils/100 WBC (Bld) 70.2 % High 47-70 [facility] Nucleated red blood cell per centageOrdered By: Erick Monsivais on 11-07-2024 Nucleated RBC/100 WBC (Bld) [Ratio] 0 % 0-5 [facility] Phosphoruson 11-07-2024 Phosphate [Mass/Vol] 3.0 mg/dL Normal 2.7-4.5 [facility] Comment on above: Performed By: #### L 500.4050, L500.4100, L501.2300, L501.9520, L501.5200, L300.8000 #### [facility] [address] [place], [address] Platelet countOrdered By: Gil Monsivais on 11-07-2024 Platelets (Bld) [#/Vol] 386 10*3/uL 150-450 [facility] Potassium measurement (mass/ volume)Ordered By: Katty Mcbride on 11-07-2024 Potassium (Unsp spec) [Mass/Vol] 4.1 mmol/L 3.3-5.1 [facility] RBC Auto (Bld) [#/Vol]Ordere d By: Erick Monsivais on 11-07-2024 RBC (Bld) [#/Vol] 3.12 10*6/uL Low 4.6-6.2 [facility] Screening total cholesterol/ high density lipoprotein (HDL) cholesterol ratioOrdered By: Katty Mcbride on 11-07-2024 Cholesterol.total/Yudith sterol in HDL [Mass ratio] 3.29 {ratio} [facility] Serum creatinine measurement (mass/volume)Ordered By: Katty Mcbride on 11-07-2024 Creatinine [Mass/Vol] 1.00 mg/dL 0.70-1.20 [facility] Serum globulin measurementOr dered By: Katty Mcbride on 11-07-2024 Globulin (S) [Mass/Vol] 2.8 g/dL 2.2-4.2 [facility] Serum glucose measurement (m ass/volume)Ordered By: Katty Mcbride on 11-07-2024 Glucose [Mass/Vol] 96 mg/dL 70-99 [facility] Serum or plasma alanine briggs otransferase (ALT) measurementOrdered By: Katty Mcbride on 11-07-2024 ALT [Catalytic activity/Vol] 38 U/L <47 [facility] Serum or plasma albumin tracy urement (mass/volume)Ordered By: Katty Mcbride on 11-07-2024 Albumin [Mass/Vol] 3.0 g/dL Low 3.4-4.8 [facility] [facility] Serum or plasma albumin/glob ulin mass ratioOrdered By: Katty Mcbride on 11-07-2024 Albumin/Globulin [Mass ratio] 1.1 {ratio} 0.9-2.4 [facility] Serum or plasma alkaline abdon sphatase measurementOrdered By: Katty Mcbride on 11-07-2024 ALP [Catalytic activity/Vol] 129 U/L 40-129 [facility] Serum or plasma calcium tracy urement (mass/volume)Ordered By: Katty Mcbride on 11-07-2024 Calcium [Mass/Vol] 8.2 mg/dL 7.6-11.0 [facility] Serum or plasma cholesterol in HDL measurement (mass/volume)Ordered By: Katty Mcbride on 11-07-2024 Cholesterol in HDL [Mass/Vol] 29 mg/dL Low >40 [facility] Comment on above: National Cholesterol Education Program (NCEP) guidelines:<40 mg/dL: Low HDL-cholesterol (major risk factor for CHD)>= 60 mg/dL: High HDL-cholesterol (negative risk factor for CHD)HDL-cholesterol is affected by a number of factors, e.g. smoking, exercise, hormones, sex and age. Serum or plasma cholesterol measurement (mass/volume)Ordered By: Katty Mcbride on 11-07-2024 Cholesterol [Mass/Vol] 96 mg/dL <201 [facility] Comment on above: Cholesterol level, D esirable <200 mg/dLBorderline high cholesterol 200-239 mg/dLHigh cholesterol >=240 mg/dLRecommendations of the NCEP Adult Treatment Panel for the following risk-cutoff thresholds for the [place] population. Serum or plasma urea nitroge n measurement (mass/volume)Ordered By: Katty Mcbride on 11-07-2024 Urea nitrogen [Mass/Vol] 15 mg/dL 4-19 [facility] Sodium levelOrdered By: Sujata Mcbride on 11-07-2024 Sodium [Moles/Vol] 136 mmol/L 133-145 [facility] TSH DL <= 0.005 mIU/L QnOrde red By: Katty Mcbride on 11-07-2024 TSH Qn 1.470 uIU/mL 0.300-4.200 [facility] Thyroid Stim Hormone (TSH)on 11-07-2024 TSH 1.470 uIU/mL Normal 0.300-4.200 [facility] Comment on above: Performed By: #### L 499.0042 #### [facility] Laboratory [facility] [place], [address] Total proteinOrdered By: Heather Mcbride on 11-07-2024 Protein [Mass/Vol] 5.9 g/dL 5.9-8.4 [facility] Triglycerides measurementOrd ered By: Katty Mcbride on 11-07-2024 Triglyceride [Mass/Vol] 87 mg/dL <199 [facility] Comment on above: The drugs N-Acetylcy steine and Metamizole may falsely depress this assay. Normal range: <150 mg/dLBorderline High: 150-199 mg/dLHigh: 200-499 mg/dLVery High: >500 mg/dL White blood cell (WBC) count Ordered By: Erick Monsivais on 11-07-2024 WBC (Bld) [#/Vol] 10.5 10*3/uL 4.4-11.0 [facility] 12 Lead EKGon 11-06-2024 12 Lead EKG [facility] Cardiovascular Services [address] [place] [address] 12 Lead EKG 11/06/24 1004 MR#: [id number] Acct: [id number] Name: HUSAM BARROW Rep #: [id number] : 1950 74 From: Lance Garrett MD Attending Dr: Dr. Katty Mcbride DO Status: ADM I N Ordering Dr: Erick Monsivais DO Date: 11/06/24 Location: [facility] Sex: M C Admitted: 11/06/24 Test Reason : Blood Pressure : */* mmHG Vent. Rate : 56 BPM Atrial Rate : 56 BPM P-R Int : 160 ms QRS Dur : 130 ms QT Int : 444 ms P-R-T Axes : 51 15 10 degrees QTcB Int : 428 ms Sinus bradycardia Right bundle branch block Abnormal ECG Confirmed by Lance Garrett ([id number]), editor trade journal WENDY RYDER ([id number]) on 11/07/2024 5:49:05 AM Referred By: Katty Mcbride Confirmed By: Lance Garrett 11/07/24 0549 Date Lance Garrett MD CC: Dr. Erick Monsivais DO; Dr. Katty Mcbride DO; Dr. Brien Singer MD Signed Normal [facility] Activated partial thrombopla stin time (aPTT) in platelet poor plasma by coagulation aOrdered By: Erick Monsivais on 09-25-2025 aPTT Coag (PPP) [Time] s Critically high 24.1-36. 2 [facility] Comment on above: CRITICAL VALUE MORROW D TO JC MOTA (ER)11/06/24 1209 Cali Mirza.RESULTS READ BACK BY SAME. Basic Metabolic Profile (BMP )on 11-06-2024 BUN/CRE 16.3 RATIO Normal 10-20 [facility] Comment on above: Performed By: #### L 499.0042 #### [facility] Laboratory [address] [place], [address] Calcium [Mass/Vol] 8.2 mg/dL Normal 7.6-11.0 [facility] Comment on above: Performed By: #### L 499.0042 #### [facility] Laboratory [address] [place], [address] Chloride [Moles/Vol] 103 mmol/L Normal 98-108 [facility] Comment on above: Performed By: #### L 499.0042 #### [facility] Laboratory [address] [place], [address] CO2 [Moles/Vol] 18.0 mmol/L Low 21.0-32.0 [facility] Comment on above: Performed By: #### L 499.0042 #### [facility] Laboratory [address] [place], [address] Creatinine [Mass/Vol] 1.19 mg/dL Normal 0.70-1.20 [facility] Comment on above: Performed By: #### L 499.0042 #### [facility] Laboratory [address] [place], [address] ECRCL 56.25 ml/min Normal 50-250 [facility] Comment on above: Performed By: #### L 499.0042 #### [facility] Laboratory [address] [place], [address] GAP 16 High 5-15 [facility] Comment on above: Performed By: #### L 499.0042 #### [facility] Laboratory [address] [place], [address] GFR/1.73 sq M.predicted among non-blacks MDRD (S/P/Bld) [Vol rate/Area] 63 mL/min/{1.73_m2} Normal >60 [facility] Comment on above: Result Comment: mL/m in/1.73m2 CKD-EPI Creatinine Equation (2020) Performed By: #### L 499.0042 #### [facility] Laboratory [address] [place], [address] Glucose [Mass/Vol] 101 mg/dL High 70-99 [facility] Comment on above: Performed By: #### L 499.0042 #### [facility] Laboratory [address] [place], [address] Potassium [Moles/Vol] 4.5 mmol/L Normal 3.3-5.1 [facility] Comment on above: Result Comment: Hemo lysis present, Results??could be affected. ?? Performed By: #### L 499.0042 #### [facility] Laboratory [address] [place], [address] Sodium [Moles/Vol] 136 mmol/L Normal 133-145 [facility] Comment on above: Performed By: #### L 499.0042 #### [facility] Laboratory [address] [place], [address] Urea nitrogen [Mass/Vol] 19 mg/dL Normal 4-19 [facility] Comment on above: Performed By: #### L 499.0042 #### [facility] Laboratory [address] [place], [address] Bilirubin Test strip Ql (U)O rdered By: Erick Monsivais on 11-06-2024 Bilirubin Ql (U) Negative Negative [facility] Brain/Head without Contrasto n 11-06-2024 Brain/Head without Contrast [facility] Imaging Services [address] [place], [place] [address] Brain/Head without Contrast MR#: [id number] Acct: [id number] Name: HUSAM BARROW Rep #: [id number] : 1950 M 74 From: Malia Rubi MD PCP: Dr. Brien Singer MD Status: REG ER Study: Brain/Head without Contrast Date of Exam: 10/14 07/06 Exam# [id number] Ordering Dr: Erick Monsivais DO PROCEDURE: BRAIN/HEAD WITHOUT CONTRAST 11/06/2024 REASON FOR EXAM: DIZZINESS TECHNIQUE: Procedure Code: CTBR Modality: CT Procedure: BRAIN/HEAD WITHOUT CONTRAST Coronal and Sagittal reconstruction series were provided. One or more dose reduction techniques were used (e.g., Automated exposure control, adjustment of the mA and/or kV according to patient size, use of iterative reconstruction technique. RADIATION DOSE SUMMARY: CTDlvol: 44.99 mGy DLP: 779.24 mGycm COMPARISON: None. FINDINGS: Brain: Extensive low density in the deep cerebral white matter most likely represents advanced chronic small vessel ischemic disease. No acute territorial infarction. No mass-effect or midline shift. No acute orbital abnormalities. The craniocervical junction is unremarkable. No ventriculomegaly. CSF Spaces: Unremarkable. Sinuses/Mastoids: Clear. Bones: No acute bony abnormalities. CT/Brain/Head without Contrast IMPRESSION: No acute intracranial abnormalities. Reading Location: [facility] CC: Dr. Erick Monsivais DO; Dr. Brien Singer MD Salt Lifter: Signed Normal [facility] CBC W/Diff, Automatedon 10-14 Absolute Neut Normal 2.0-7.7 [facility] Comment on above: Order Comment: Comme nts: If not done in prior 24 hours Result Comment: DONE IN PAST 24 HRS Performed By: #### L 499.0042 #### [facility] Laboratory [address] [place], [address] HCT Normal 40-54 [facility] Comment on above: Order Comment: Comme nts: If not done in prior 24 hours Result Comment: DONE IN PAST 24 HRS Performed By: #### L 499.0042 #### [facility] Laboratory [address] [place], [address] HGB Normal 13.0-16.5 [facility] Comment on above: Order Comment: Comme nts: If not done in prior 24 hours Result Comment: DONE IN PAST 24 HRS Performed By: #### L 499.0042 #### [facility] Laboratory [address] [place], [address] MCH Normal 27.0-32.0 [facility] Comment on above: Order Comment: Comme nts: If not done in prior 24 hours Result Comment: DONE IN PAST 24 HRS Performed By: #### L 499.0042 #### [facility] Laboratory [address] [place], [address] MCHC Normal 32-36 [facility] Comment on above: Order Comment: Comme nts: If not done in prior 24 hours Result Comment: DONE IN PAST 24 HRS Performed By: #### L 499.0042 #### [facility] Laboratory [address] [place], [address] MCV Normal 80-94 [facility] Comment on above: Order Comment: Comme nts: If not done in prior 24 hours Result Comment: DONE IN PAST 24 HRS Performed By: #### L 499.0042 #### [facility] Laboratory [address] [place], [address] NEUT% Normal 47-70 [facility] Comment on above: Order Comment: Comme nts: If not done in prior 24 hours Result Comment: DONE IN PAST 24 HRS Performed By: #### L 499.0042 #### [facility] Laboratory [address] [place], [address] PLT Normal 150-450 [facility] Comment on above: Order Comment: Comme nts: If not done in prior 24 hours Result Comment: DONE IN PAST 24 HRS Performed By: #### L 499.0042 #### [facility] Laboratory [address] [place], [address] RBC Normal 4.6-6.2 [facility] Comment on above: Order Comment: Comme nts: If not done in prior 24 hours Result Comment: DONE IN PAST 24 HRS Performed By: #### L 499.0042 #### [facility] Laboratory [address] [place], [address] RDW CV Normal 11.6-14.6 [facility] Comment on above: Order Comment: Comme nts: If not done in prior 24 hours Result Comment: DONE IN PAST 24 HRS Performed By: #### L 499.0042 #### [facility] Laboratory [address] [place], [address] RDW SD Normal 35.1-43.9 [facility] Comment on above: Order Comment: Comme nts: If not done in prior 24 hours Result Comment: DONE IN PAST 24 HRS Performed By: #### L 499.0042 #### [facility] Laboratory [address] [place], [address] WBC Normal 4.4-11.0 [facility] Comment on above: Order Comment: Comme nts: If not done in prior 24 hours Result Comment: DONE IN PAST 24 HRS Performed By: #### L 499.0042 #### [facility] Laboratory [address] [place], [address] Absolute Lymph 1.04 X10 3/uL Normal 0.83-4.51 [facility] Comment on above: Performed By: #### L 499.0042 #### [facility] Laboratory [address] [place], [address] Absolute Neut 7.9 X10 3/uL High 2.0-7.7 [facility] Comment on above: Performed By: #### L 499.0042 #### [facility] Laboratory [address] [place], [address] Basophils/100 WBC (Bld) 0.4 % Normal 0-1 [facility] Comment on above: Performed By: #### L 499.0042 #### [facility] Laboratory [address] [place], [address] Eosinophils/100 WBC (Bld) 4.6 % Normal 0-5 [facility] Comment on above: Performed By: #### L 499.0042 #### [facility] Laboratory [address] [place], [address] Erythrocyte distribution width (RBC) [Ratio] 15.4 % High 11.6-14.6 [facility] Comment on above: Performed By: #### L 499.0042 #### [facility] Laboratory [address] [place], [address] Hematocrit (Bld) [Volume fraction] 35.9 % Low 40-54 [facility] Comment on above: Performed By: #### L 499.0042 #### [facility] Laboratory [address] [place], [address] Hemoglobin (Bld) [Mass/Vol] 12.0 g/dL Low 13.0-16.5 [facility] Comment on above: Performed By: #### L 499.0042 #### [facility] Laboratory [address] [place], [address] IG% 0.700 Normal 0.0-0.9 [facility] Comment on above: Result Comment: IG% - Immature Granulocytes (promyelocytes, myelocytes and metamyelocytes) > 1% indicates that a LEFT SHIFT is Present. Performed By: #### L 499.0042 #### [facility] Laboratory [address] [place], [address] Lymphocytes/100 WBC (Bld) 9.4 % Low 19-41 [facility] Comment on above: Performed By: #### L 499.0042 #### [facility] Laboratory [address] [place], [address] MCH (RBC) [Entitic mass] 37.3 pg High 27.0-32.0 [facility] Comment on above: Performed By: #### L 499.0042 #### [facility] Laboratory [address] [place], [address] MCHC (RBC) [Mass/Vol] 33.4 g/dL Normal 32-36 [facility] Comment on above: Performed By: #### L 499.0042 #### [facility] Laboratory [address] [place], [address] MCV (RBC) [Entitic vol] 111.5 fL High 80-94 [facility] Comment on above: Performed By: #### L 499.0042 #### [facility] Laboratory [address] [place], [address] Monocytes/100 WBC (Bld) 13.8 % High 0-10 [facility] Comment on above: Performed By: #### L 499.0042 #### [facility] Laboratory [address] [place], [address] Neutrophils/100 WBC (Bld) 71.1 % High 47-70 [facility] Comment on above: Performed By: #### L 499.0042 #### [facility] Laboratory [address] [place], [address] Nucleated RBC (Bld) [#/Vol] 0 10*3/uL Normal 0-5 [facility] Comment on above: Performed By: #### L 499.0042 #### [facility] Laboratory [address] [place], [address] Platelet mean volume (Bld) [Entitic vol] 9.6 fL Normal 6.2-12.0 [facility] Comment on above: Performed By: #### L 499.0042 #### [facility] Laboratory [address] [place] [place], [address] Platelets (Bld) [#/Vol] 406 10*3/uL Normal 150-450 [facility] Comment on above: Performed By: #### L 499.0042 #### [facility] Laboratory [address] [place], [address] RBC (Bld) [#/Vol] 3.22 10*6/uL Low 4.6-6.2 [facility] Comment on above: Performed By: #### L 499.0042 #### [facility] Laboratory [address] [place], [address] RDW SD 63.5 fl High 35.1-43.9 [facility] Comment on above: Performed By: #### L 499.0042 #### [facility] Laboratory [address] [place], [address] WBC (Bld) [#/Vol] 11.1 10*3/uL High 4.4-11.0 [facility] Comment on above: Performed By: #### L 499.0042 #### [facility] Laboratory [address] [place], [address] CRPon 11-06-2024 C-REACTIVE PROT 71.70 mg/L High 0.0-3.0 [facility] Comment on above: Performed By: #### L 501.9985 #### [facility] Laboratory [address] [place], [address] Cardiac Cath Diagnosticon Cardiac Cath Diagnostic [facility] Imaging Services [address] [address] Cardiac Cath Diagnostic MR#: [id number] Acct: [id number] Name: HUSAM BARROW Rep #: [id number] : 1950 74 From: Clinton uDran MD PCP: Dr. Brien Singer MD Status:[facility] Patient Name: HUSAM BARROW Study Date: 11/06/2024 Performing: Clinton Duran MD Ht: 71 inches 180.34 cm : 1950 Wt: 189.6 lbs 85.9 kg Age: 74 Gender: male BSA: 2.06 PROCEDURE(S) PERFORMED DC01-(21790)LHC/COR/LV CLINICAL PROFILE AND INDICATIONS Indications: ACS <= 24 hrs Heart Failure: None Stress/Imaging Stress/Image Study Performed: No Angina Classification Anginal Classification w/in 2 Weeks: No symptoms CAD Presentations: Other: CONCLUSIONS 10% Prox LAD 30-40% Mid RCA LVEF 60%. Mild posterior basal hypokinesis RECOMMENDATIONS Risk factor modification Medical therapy DESCRIPTION OF PROCEDURE The patient arrived to the procedure lab. The risks and benefits of the procedure as well as a full description of our services here and current unavailability of surgical backup were fully explained to the patient and/or their significant other prior to the catheterization. The Timeout was completed, verifying the correct patient and procedure. The patient's procedural site was prepped and draped in the usual fashion. Local anesthetic was given subcutaneously to right radial region with Lidocaine 2%. Using a modified Seldinger technique, Left Coronary Artery selective angiography was performed in multiple views using a 5 Fr. 4.0 [place] catheter. Left Coronary Artery selective angiography was performed in multiple views using a 5 Fr. JL4 catheter. Right Coronary Artery selective angiography was then performed in multiple views using a 5 Fr. 3DRC (Micky) catheter. Left Ventriculography was performed in SANTAMARIA projection using a 5 Fr. Pigtail catheter.The arterial sheath was pulled and a TR Band was applied for hemostasis w /10ml air CORONARY ANGIOGRAPHY DOMINANCE: Right Dominant LEFT HEART ASSESSMENT Left Ventricular Ejection Fraction: by LV Gram 60 % Posterior Basal Hypokinesis - Mild LVEDP: 17 mmHg LEFT MAIN: Angiographically normal LEFT ANTERIOR DESCENDING ARTERY: LAD: Tubular 10% Proximal lesion in LAD CIRCUMFLEX ARTERY: Angiographically normal RIGHT CORONARY ARTERY: RCA: Tubular 40% Mid lesion in RCA COMPLICATIONS No Complications PROCEDURE MEDICATIONS Versed 1 mg IV Fentanyl 50 mcg IV Oxygen: 2 L/min via nasal cannula Heparin given IA 11/06/2024 13:25:48 Verapamil 2.5mg, Ntg 200mcgs, 2000 units of Heparin given IA 11/06/2024 13:25:48 SUMMARY OF HEMODYNAMIC DATA Time AIR REST ECG 13:07:05 AO 108/74 (89) SA 13:29:28 AO 107/69 (85) 13:39:28 LV 135/5, 17 13:42:23 LV 133/6, 17 13:42:31 Signed By Clinton Duran MD On 11/06/2024 14:25:44 Clinton Duran MD 11/06/24 1426 Date Clinton Duran MD Cosigner Signature: Date (if indicated) CC: Dr. Clinton Duran MD; Dr. Brien Singer MD Date Dictated: 11/06/24 1316 Date Transcribed: 11/06/24 142 Salt Lifter: TATIANA Signed Normal [facility] Chest 1 View (Portable)on Chest 1 View (Portable) [facility] Imaging Services [address] [place], [place] [id number] Chest 1 View (Portable) MR#: [id number] Acct: [id number] Name: HUSAM BARROW Rep #: [id number] : 1950 M 74 From: Jasper Mcintyre PCP: Dr. Brien Singer MD Status: REG ER Study: Chest 1 View (Portable) Date of Exam: 11/06/24 Exam# [id number] Ordering Dr: Erick Monsivais DO PROCEDURE: CHEST 1 VIEW (PORTABLE) 11/06/2024 REASON FOR EXAM: DIZZINESS TECHNIQUE: Frontal view of the chest. COMPARISON: AP chest of 08/03/2024. RAD/Chest 1 View (Portable) IMPRESSION: The cardiomediastinal silhouette is stable, with a tortuous aorta noted. No evidence of cardiomegaly. 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 Minimal areas of linear scarring or discoid atelectasis are seen in the right lower lung. Lungs otherwise appear clear of acute disease. No pleural effusion or pneumothorax is noted. No interval osseous change is seen. Reading Location: [id number] CC: Dr. Erick Monsivais DO; Dr. Brien Singer MD Salt Lifter: Signed Normal [facility] Consultation - Cardiologyon 11-06-2024 Consultation - Cardiology [facility] Medical Records Department [address] [place] [address] Consultation - Cardiology 11/06/24 1131 MR#: [id number] Acct: [id number] Name: HUSAM BARROW Rep #: [id number] : 1950 74 From: Lance Garrett MD PCP: Dr. Brien Singer MD Status:REG ER Location: ED Assessment Plan Assessment/Plan (1) Non-STEMI (non-ST elevated myocardial infarction): PLAN: Patient presents with a history of nausea and vomiting associated with dizziness and elevated troponins at 309 with hypotension. His ECG shows new ST segment depression and chronic right bundle branch block in his anterior septal leads. The ST depressions are more prominent than on the July 2024 ECG. Given the patient's presumed history of medically treated coronary artery disease, elevated troponins, the nausea vomiting and hypotension, and his ECG showing the subtle changes I recommend the patient proceed with urgent left heart catheterization. The procedure risk/benefit and alternatives were explained to the patient and his son and they voiced understanding and agreed to proceed. (2) Hypertension: QUALIFIERS: Hypertension type: primary hypertension Qualified Code(s): I10 - Essential (primary) hypertension PLAN: Blood pressure was low upon presentation it is currently normalized after IV fluids. (3) High platelet count: PLAN: Patient carries a history of thrombocytosis he is currently being treated with hydroxyurea. PLAN: Plan 1. Recommend urgent left heart catheterization today. Dr. Duran to perform. 2. Will follow-up with further recommendations once results of the catheter are available. HPI Consult Data Date of Consult: 11/06/24 HPI Narrative Reason for Consultation: Acute coronary syndrome HPI Narrative: HUSAM BARROW, is a 74 M who presents with a sudden onset of nausea with vomiting and dizziness and feeling off balance this morning. The patient presented to the emergency department with a blood pressure 82/47 and received fluids his blood pressure is 125/70. Heart rate is in the 55-60 bpm range in sinus rhythm. Original ECG shows there is chronic right bundle branch block with ST depression in V2 through V4. Initial troponin was 309. The patient carries a history of bradycardia and had been hospitalized back in July 2024 with syncope/near syncope and had his carvedilol discontinued. It was reinstituted at some point in time and he is now back on carvedilol. The patient carries a history of thrombocytosis and is on hydroxyurea. He also has a history of hypertension and is treated with a combination of carvedilol diltiazem and losartan. The patient reports that he had a left heart catheterization done December 2023 in [place]. 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 That catheterization did not show anything of any significance apparently it was done after an abnormal stress test which was done because of his progressive fatigue. Most of the information is obtained from the patient and his son who is his power of electrical continuity tester. The patient carries a history of 26 years ago having some angina damage to his heart as a way he describes it. He has never had a stent or bypass surgery but he has had at least 2 heart catheterizations that resulted in no interventions by his report. The patient is on aspirin and atorvastatin. Currently the patient is asymptomatic lying on the gurney in the emergency department. [facility] Medical History Fatigue Generalized weakness Adverse drug reaction Symptomatic bradycardia Generalized weakness Syncope and collapse High platelet count CAD (coronary artery disease) Hypertension Angina of effort Home Medications ???Medication ???Instructions ???Recorded ???Last Taken ???Type diltiazem HCl 180 mg 1 cap PO DAILY Check with primary 11/28/19 11/27/19 08:00 History capsule,extended release 24 hr doctor aspirin 81 mg tablet,delayed 81 mg PO DAILY 06/24/22 Unknown Hi story release atorvastatin 40 mg tablet 20 mg PO DAILY 06/24/22 Unknown Hi story bupropion HCl 300 mg 24 hr tablet, 300 mg PO DAILY 06/24/22 Unknown History extended release folic acid 1 mg tablet 1 mg PO DAILY 06/24/22 Unknown His tory losartan 50 mg tablet 25 mg PO DAILY 06/24/22 Unknown Hi story carvedilol 3.125 mg tablet 6.25 mg (2 x 3.125 mg) PO DAILY #1 08/03/24 Unknown Rx TAB hydroxyurea 500 mg capsule 500 mg PO DAILY 08/03/24 Unknown H istory Allergy/AdvReac Type Severity Reaction Status Date / Time No Known Allergies Allergy Verified 11/06/24 09:30 Surgical History S/P ORIF (open reduction internal fixation) fracture Social History ... Normal [facility] D-Dimer Quantitative (DVT/PE )on 11-06-2024 D-DIMER QUANT 0.97 FEU/ug/m Invalid Interpretation Code 0.27-0.49 [facility] Comment on above: Result Comment: D-Di rola ELEVATED (>0.49): Additional studies and clinical assessments are indicated to conclude diagnosis of: Deep Vein Thrombosis (DVT) or Pulmonary Embolism (PE) CRITICAL VALUE CALLED TO CHON MOTA (U) 11/06/24 0521 Cali Mirza. RESULTS READ BACK BY SAME. Performed By: #### L [id number] #### [facility] [address] [place], [address] Echo Completeon 11-06-2024 [facility] Cardi[facility] Services [address] [place] [address] Echo Complete 11/06/24 1540 MR#: [id number] Acct: [id number] Name: HUSAM BARROW Rep #: [id number] : 1950 74 From: Clinton Duran MD Attending Dr: Dr. Katty Mcbride DO Status: ADM I N Ordering Dr: Katty Mcbride DO Date: 11/06/24 Location: PCU Sex: M C Admitted: 11/06/24 Reason For Study Reason For Study: CHEST PAIN Procedure This was a 2D Doppler, Color Flow transthoracic echocardiogram. The study was technically difficult. Exam performed portable in patient room. Left Ventricle Normal LV size. LV apical and mid cavitary false tendons. Suspect apical thinning. Basal inferior hypokinesis. Overall LVEF 60%. Stage I diastolic dysfunction. Right Ventricle Normal RV size. Moderate RV systolic dysfunction. Atria The left atrium is moderately enlarged. The right atrium is mildly enlarged. Mitral Valve Mild (1+) mitral valve insufficiency. Tricuspid Valve Mild (1+) tricuspid valve insufficiency. Normal pulmonary artery pressure. Aortic Valve Trisinus/trileaflet aortic valve. Mildly thickened aortic valve leaflets. Mild aortic valve stenosis. Mean peak gradient 11 mmHg. Pulmonic Valve The pulmonic valve is not well visualized. Great Vessels Normal sized aortic root. Pericardium/Pleural No pericardial effusion. MMode/2D Measurements Calculations LVIDd: 5.6 cm IVSd: 0.84 cm Ao root diam: 3.6 cm LVIDs: 3.8 cm LVPWd: 0.99 cm RVDd: 3.8 cm FS: 31.7 % LAV(MOD-bp): 85.4 ml LVAd ap4: 31.5 cm2 LVAd ap2: 28.8 cm2 LAV(MOD-bp) Indexed: 41.6 ml/m2 LVLd ap4: 8.2 cm LVLd ap2: 8.2 cm LAV(MOD-sp2): 73.7 ml EDV(MOD-sp4): 100.8 ml EDV(MOD-sp2): 85.7 ml LAV(MOD-sp4): 83.0 ml EDV(sp4-el): 102.5 ml EDV(sp2-el): 85.6 ml LVAs ap4: 16.7 cm2 LVAs ap2: 15.3 cm2 LVLs ap4: 6.2 cm LVLs ap2: 6.3 cm ESV(MOD-sp4): 39.4 ml ESV(MOD-sp2): 33.2 ml ESV(sp4-el): 37.8 ml ESV(sp2-el): 31.3 ml EF(MOD-sp4): 60.9 % EF(MOD-sp2): 61.3 % EF(sp4-el): 63.1 % SV(MOD-sp4): 61.3 ml SV(MOD-sp2): 52.5 ml SV(sp4-el): 64.7 ml SI(MOD-sp4): 29.9 ml/m2 SI(MOD-sp2): 25.6 ml/m2 LA A4 area: 26.0 cm2 LA dimension(2D): 4.2 cm RA A4 area: 17.8 cm2 TAPSE: 2.6 cm Time Measurements MV dec time: 0.25 sec Doppler Measurements Calculations MV E max bari: 69.2 cm/sec Lat Peak E' Bari: 6.8 cm/sec Med Peak E' Bari: 7.6 cm/sec MV A max bari: 115.0 cm/sec E/E' lat: 10.2 E/E' med: 9.2 MV E/A: 0.60 MV V2 max: 132.9 cm/sec MV P1/2t max bari: 83.0 cm/sec Ao V2 max: 233.2 cm/sec MV max P.1 mmHg MV P1/2t: 69.0 msec Ao max P.8 mmHg MV V2 mean: 50.0 cm/sec Ao V2 mean: 158.2 cm/sec MV mean P.3 mmHg MV dec slope: 352.3 cm/sec2 Ao mean P.5 mmHg MV V2 VTI: 32.6 cm MVA(P1/2t): 3.2 cm2 Ao V2 VTI: 53.9 cm AV (velocity ratio): 0.48 LV V1 max: 117.4 cm/sec PA V2 max: 108.0 cm/sec TR max bari: 247.5 cm/sec LV V1 max P.5 mmHg TR max P.8 mmHg LV V1 mean P.0 mmHg LV V1 mean: 81.8 cm/sec LV V1 VTI: 25.9 cm ECHO/Echo Complete Interpretation Summary LV apical and mid cavitary false tendons. Suspect apical thinning. Basal inferior hypokinesis. Overall LVEF 60%. Stage I diastolic dysfunction. Normal RV size. Moderate RV systolic dysfunction. The left atrium is moderately enlarged. The right atrium is mildly enlarged. Mild (1+) mitral valve insufficiency. Mild (1+) tricuspid valve insufficiency. Mildly thickened aortic valve leaflets. Mild aortic valve stenosis. Mean peak gradient 11 mmHg. The study was technically difficult. Recommend cardiac MRI for further evaluation of the LV apex. Ordering Physician: Katty Mcbride Referring Physician: Brien Singer Performed By: Abbi Amador, REGICS, RVT 11/06/241657 Date Clinton Duran MD CC: Dr. Katty Mcbride DO; Dr. Brien Singer MD Date Dictated: 11/06/24 1540 Date Transcribed: 11/06/241658 Salt Lifter: Signed Normal [facility] Echocardiogram study reportO rdered By: Clinton Duran on 11-06-2024 Study report [facility] Cardiovascular Services [address] [place] [address] Echo Complete 11/06/24 1540 MR#: [id number] Acct: [id number] Name: HUSAM BARROW Rep #:[id number] : 1950 74 From: Clinton Duran MD Attending Dr: Dr. Katty Mcbride DO S tatus: ADM IN Ordering Dr: Katty Mcbride DO Date: Location: [facility] Sex: M C Admitted: 11/06/24 Reason For Study Reason For Study: CHEST PAIN Procedure This was a 2D Doppler, Color Flow transthoracic echocardiogram. The study was technically difficult. Exam performed portable in patient room. Left Ventricle Normal LV size. LV apical and mid cavitary false tendons. Suspect apical thinning. Basal inferior hypokinesis. Overall LVEF 60%. Stage I diastolic dysfunction. Right Ventricle Normal RV size. Moderate RV systolic dysfunction. Atria The left atrium is moderately enlarged. The right atrium is mildly enlarged. Mitral Valve Mild (1+) mitral valve insufficiency. Tricuspid Valve Mild (1+) tricuspid valve insufficiency. Normal pulmonary artery pressure. Aortic Valve Trisinus/trileaflet aortic valve. Mildly thickened aortic valve leaflets. Mild aortic valve stenosis. Mean peak gradient 11 mmHg. Pulmonic Valve The pulmonic valve is not well visualized. Great Vessels Normal sized aortic root. Pericardium/Pleural No pericardial effusion. MMode/2D Measurements & Calculations LVIDd: 5.6 cm IVSd: 0.84 cm Ao root diam: 3.6 cm LVIDs: 3.8 cm LVPWd: 0.99 cm RVDd: 3.8 cm FS: 31.7 % LAV(MOD-bp): 85.4 ml LVAd ap4: 31.5 cm2 LVAd ap2: 28.8 cm2 LAV(MOD-bp) Indexed: 41.6 ml/m2 LVLd ap4: 8.2 cm LVLd ap2: 8.2 cm LAV(MOD-sp2): 73.7 ml EDV(MOD-sp4): 100.8 ml EDV(MOD-sp2): 85.7 ml LAV(MOD-sp4): 83.0 ml EDV(sp4-el): 102.5 ml EDV(sp2-el): 85.6 ml LVAs ap4: 16.7 cm2 LVAs ap2: 15.3 cm2 LVLs ap4: 6.2 cm LVLs ap2: 6.3 cm ESV(MOD-sp4): 39.4 ml ESV(MOD-sp2): 33.2 ml ESV(sp4-el): 37.8 ml ESV(sp2-el): 31.3 ml EF(MOD-sp4): 60.9 % EF(MOD-sp2): 61.3 % EF(sp4-el): 63.1 % SV(MOD-sp4): 61.3 ml SV(MOD-sp2): 52.5 ml SV(sp4-el): 64.7 ml SI(MOD-sp4): 29.9 ml/m2 SI(MOD-sp2): 25.6 ml/m2 LA A4 area: 26.0 cm2 LA dimension(2D): 4.2 cm RA A4 area: 17.8 cm2 TAPSE: 2.6 cm Time Measurements MV dec time: 0.25 sec Doppler Measurements & Calculations MV E max bari: 69.2 cm/sec Lat Peak E' Bari: 6.8 cm/sec Med Peak E' Bari: 7.6 cm/sec MV A max bari: 115.0 cm/sec E/E' lat: 10.2 E/E' med: 9.2 MV E/A: 0.60 MV V2 max: 132.9 cm/sec MV P1/2t max bari: 83.0 cm/sec Ao V2 max: 233.2 cm/sec MV max P.1 mmHg MV P1/2t: 69.0 msec Ao max P.8 mmHg MV V2 mean: 50.0 cm/sec Ao V2 mean: 158.2 cm/sec MV mean P.3 mmHg MV dec slope: 352.3 cm/sec2 Ao mean P.5 mmHg MV V2 VTI: 32.6 cm MVA(P1/2t): 3.2 cm2 Ao V2 VTI: 53.9 cm AV (velocity ratio): 0.48 LV V1 max: 117.4 cm/sec PA V2 max: 108.0 cm/sec TR max bari: 247.5 cm/sec LV V1 max P.5 mmHg TR max P.8 mmHg LV V1 mean P.0 mmHg LV V1 mean: 81.8 cm/sec LV V1 VTI: 25.9 cm ECHO/Echo Complete Interpretation Summary LV apical and mid cavitary false tendons. Suspect apical thinning. Basal inferior hypokinesis. Overall LVEF 60%. Stage I diastolic dysfunction. Normal RV size. Moderate RV systolic dysfunction. The left atrium is moderately enlarged. The right atrium is mildly enlarged. Mild (1+) mitral valve insufficiency. Mild (1+) tricuspid valve insufficiency. Mildly thickened aortic valve leaflets. Mild aortic valve stenosis. Mean peak gradient 11 mmHg. The study was technically difficult. Recommend cardiac MRI for further evaluation of the LV apex. Ordering Physician: Katty Mcbride Referring Physician: Brien Singer Performed By: Abbi Amador RDCS, RVT 11/06/248 Date _ Clinton Duran MD CC: Dr. Katty Mcbride DO; Dr. Brien Singer MD ~ Date Dictated: 11/06/24 1540 Date Transcribed: 11/06/241658 Salt Lifter: Signed [facility] Work Phone: Emergency Department Summary on 11-06-2024 Emergency Department Summary [facility] Medical Records Department [address] [place] [id number] Emergency Department Summary 11/06/24 MR#: [id number] Acct: [id number] Name: HUSAM BARROW Rep #: [id number] : 1950 74 From: Erick Monsivais DO PCP: Dr. Brien Singer MD Status:ADM IN Location: [address] History of Present Illness Chief Complaint: Dizziness Informant: patient Onset/Context/Timing Onset: Today Context: Gradual Onset Timing: Continuous Quality: Off balance Location: Generalized Worsened by: Activity, movement Relieved by: Laying down Narrative Narrative: Patient presents with dizziness that began today. Patient states that it was gradual gotten worse. Patient states he feels like he is off balance. Patient states that it is worse with any movement or activity. Patient states it is better when he is able to lay down. Patient admits to some nausea and vomiting. Patient denies any headaches. Patient denies any hearing changes or tinnitus. Patient denies any visual changes. Patient denies any chest pain or shortness of breath. Patient has had a recent cough. [facility] Medical History Other abnormal clinical finding Fatigue Generalized weakness Adverse drug reaction Symptomatic bradycardia Generalized weakness Syncope and collapse High platelet count CAD (coronary artery disease) Hypertension Angina of effort Home Medications ???Medication ???Instructions ???Recorded ???Last Taken ???Type diltiazem HCl 180 mg 1 cap PO DAILY Check with primary 11/28/19 11/06/24 History capsule,extended release 24 hr doctor aspirin 81 mg tablet,delayed 81 mg PO DAILY 06/24/22 11/06/24 H istory release atorvastatin 40 mg tablet 20 mg PO DAILY 06/24/22 11/05/24 H istory bupropion HCl 300 mg 24 hr tablet, 300 mg PO DAILY 06/24/2211/06/ 5 History extended release folic acid 1 mg tablet 2 mg PO DAILY 06/24/22 11/06/24 Hi story losartan 50 mg tablet 25 mg PO DAILY 06/24/22 11/06/24 H istory carvedilol 3.125 mg tablet 6.25 mg (2 x 3.125 mg) PO DAILY #1 08/03/24 11/06/24 Rx TAB hydroxyurea 500 mg capsule 500 mg PO DAILY 08/03/24 11/05/24 History Allergy/AdvReac Type Severity Reaction Status Date / Time No Known Allergies Allergy Verified 11/06/24 09:30 Surgical History S/P ORIF (open reduction internal fixation) fracture Social History Smoking Status: Never smoker ROS ROS ED Constitutional Constitutional ED: Denies chills or fever(s) Eyes Eyes: Denies blurry vision or change in vision ENT ENT ED: Denies ear pain, rhinorrhea or sore throat Cardiovascular Cardiovascular: Denies chest pain or palpitations Respiratory/Chest Respiratory/Chest: Reports cough; Denies dyspnea Gastrointestinal Gastrointestinal: Reports nausea and vomiting Genitourinary Genitourinary ED: Denies dysuria or hematuria Musculoskeletal Musculoskeletal: Denies back pain or neck pain Integumentary Denies abscess or rash Neurologic Neurologic: Denies headache(s) or weakness Allergic/Immunologic Allergic/Immunologic ED: Denies mouth swelling or urticaria EXAM Physical Exam Const Vital Signs: 11/06/24 09:25 11/06/24 10:05 11/06/24 11:25 Temperature 98 F Temperature Source Oral Pulse Rate 57 L 57 L Pulse Rate [Lying] 57 L Pulse Rate [Sitting (for 1 minute prior to obtaining)] 61 Pulse Rate [Standing (for 1 minute prior to obtaining)] 61 Respiratory Rate 9 L 18 Blood Pressure 82/47 L 126/84 H Blood Pressure [Lying] 102/68 Blood Pressure [Sitting (for 1 minute prior to obtaining)] 111/70 Blood Pressure [Standing (for 1 minute prior to obtaining)] 91/75 Blood Pressure Mean 58 98 Blood Pressure Mean [Lying] 79 Blood Pressure Mean [Sitting (for 1 minute prior to obtaining)] 83 Blood Pressure Mean [Standing (for 1 minute prior to obtaining)] 80 Pulse Ox 97 97 Oxygen Delivery Method Room Air Room Air Positive well nourished and well developed General Appearance ED: well developed and NAD HEENT Reports moist mucous membranes Negative for trauma Eyes PERRL and EOMs intact bilaterally Eyes Narrative: There is mild nystagmus with right lateral gaze. Neck supple and no JVD Resp normal respiratory effort and clear to auscultation bilaterally Cardio regular rate and regular rhythm GI non-tender and non-distended Palpation: soft Extremity normal to inspection General Extremety ED: Negative for edema or tenderness General Extremity: Negative for edema Neuro oriented x3, CN's II-XII intact bilaterally and no sensory deficits noted Sensorium / Orientation: alert Motor Exam: strength 5 (more content not included)... Normal [facility] Erythrocyte Sed Rateon 11-06 SED RATE 63 mm/hr High 0-20 [facility] Comment on above: Performed By: #### L [id number] #### [facility] [address] [place], [address] Erythrocyte sedimentation ra teOrdered By: Lance Garrett on 11-06-2024 ESR (Bld) [Velocity] 63 mm/h High 0-20 [facility] H AND P Exam - Hospitaliston 11-06-2024 H&P Exam - Hospitalist [facility] Medical Records Department [address] [place] [address] H P Exam - Hospitalist 11/06/24 1141 MR#: [id number] Acct: [id number] Name: HUSAM BARROW Rep #: [id number] : 1950 74 From: Katty Mcbride DO PCP: Dr. Brien Singer MD Status:ADM IN Location: [facility] [id number] HPI - General General Date of Admission: 11/06/24 Date of Service: 11/06/24 Chief Complaint: Lightheadedness HPI Narrative HUSAM BARROW, is a 74 M who presented to the emergency department at [facility] on 11/06/2024 after an episode of lightheadedness/disequi librium and emesis. Patient's never had anything quite this significant previously. He stated he had episode that was very mild and he presented to the emergency department in July at that time it was felt to be an adverse drug reaction. He stated he had some very mild sensation of being off balance when he got out of bed in the morning and then went to a wedding. After the service he was walking out and symptoms got very severe he had an episode of emesis and then was brought to the emergency department. He had no associated diaphoresis or shortness of breath. He denied any chest pain. He denied any tingling, numbness, weakness anywhere. He had no changes in his bowels and there was no blood in his vomitus. Vital signs on presentation showed a temperature of 98, heart rate 57, respiratory rate was 18, blood pressure initially was 82/47 but repeat after fluids was 126/84, orthostatic vitals were unremarkable, pulse ox was 97% on room air. CBC showed a mild white count elevation of 11.1 with a hemoglobin of 12.0 which appears to be consistent with his baseline. He had a very mild left shift with a 71.1% neutrophilia. He also had a monocytosis at 13.8% which appears to be chronic as well. Chemistry panel showed slightly serum anion gap at 16 with a bicarb of 18. Serum creatinine was normal. Glucose was 101 with a hemoglobin A1c of 5.5. Lactic acid was normal at 1.0. Initial troponin was 309 with a delta of 281-/ troponin at 300. UA is not suggestive of infection. EKG showed some new ST depression and a chronic right bundle branch block in the anterior septal leads when compared with previous EKG from July 2024. Given his troponin elevation, symptoms, and EKG changes cardiology recommended urgent cardiac catheterization. He was taken for cardiac catheterization and was found to have a 10% proximal LAD lesion and a 30 to 40% mid RCA lesion. Medical therapy was recommended. I followed up with the patient after cardiac catheterization. He states his disequilibrium had resolved. He denied any chest pain, shortness of breath, diaphoresis, nausea or vomiting and stated he felt well and wanted to go home. [facility] Medical History Other abnormal clinical finding Fatigue Generalized weakness Adverse drug reaction Symptomatic bradycardia Generalized weakness Syncope and collapse High platelet count CAD (coronary artery disease) Hypertension Angina of effort Home Medications ???Medication ???Instructions ???Recorded ???Last Taken ???Type diltiazem HCl 180 mg 1 cap PO DAILY Check with primary 11/28/19 11/06/24 History capsule,extended release 24 hr doctor aspirin 81 mg tablet,delayed 81 mg PO DAILY 06/24/22 11/06/24 H istory release atorvastatin 40 mg tablet 20 mg PO DAILY 06/24/22 11/05/24 H istory bupropion HCl 300 mg 24 hr tablet, 300 mg PO DAILY 06/24/2211/06/2 5 History extended release folic acid 1 mg tablet 2 mg PO DAILY 06/24/22 11/06/24 Hi story losartan 50 mg tablet 25 mg PO DAILY 06/24/22 11/06/24 H istory carvedilol 3.125 mg tablet 6.25 mg (2 x 3.125 mg) PO DAILY #1 08/03/24 11/06/24 Rx TAB hydroxyurea 500 mg capsule 500 mg PO DAILY 08/03/24 11/05/24 History Allergy/AdvReac Type Severity Reaction Status Date / Time No Known Allergies Allergy Verified 11/06/24 09:30 no significant family history Surgical History S/P ORIF (open reduction internal fixation) fracture Social History Smoking Status: Never smoker ROS Constitutional Constitutional: Denies anorexia, change in weight, chills, fatigue, fever(s), malaise, night sweats, weakness or other Eyes Eyes: Denies blurry vision, change in eye color, change in vision, discharge from eye(s), double vision, erythema, eye pain, loss of vision or other ENT HEENT: Denies abnormal hearing, dysphagia, ear pain, epistaxis, headache(s), hearing loss, nasal congestion, nasal discharge, post nasal drip, sinus pressure, sore throat or other Cardiovascular Cardiovascular: Denies chest pain, claudication, dyspnea on exertion, edema, lightheadedness, orthopnea, palpitat (more content not included)... Normal [facility] Hemoglobin A1con 11-06-2024 HbA1c (Bld) [Mass fraction] 5.5 % Normal <=5.6 [facility] Comment on above: Result Comment: Norm al < 5.7 % Prediabetic 5.7 - 6.4 % Diabetic >or= 6.5 % Please note range changes. Performed By: #### L [id number] #### [facility] [address] [place] [address]. [place], [place], [id number] Hemoglobin A1c percentageOrd ered By: Katty Mcbride on 11-06-2024 HbA1c (Bld) [Mass fraction] 5.5 % <5.7 [facility] Comment on above: Normal < 5.7 % Predi abetic 5.7 - 6.4 % Diabetic >or= 6.5 % Please note range changes. Influenza virus A and B and SARS-CoV-2 (COVID-19) and Respiratory syncytial virus RNAOrdered By: Erick Monsivais on 11-06-2024 SARS-CoV-2 (COVID-19) RNA SAMMI+probe Ql (Unsp spec) [facility] normalized rat io (INR) calculationOrdered By: Erick Monsivais on 11-06-2024 INR Coag (Bld) [Relative time] 1.4 {INR} [facility] Ketones Test strip Ql (U)Ord ered By: Erick Monsivais on 11-06-2024 Ketones Ql (U) Negative Negative [facility] L501.4021on 11-06-2024 Trop T High Sen 309 ng/L Invalid Interpretation Code <=22 [facility] Comment on above: Result Comment: Crit ical Result(s) Called at 1019: by: MONCHO WATKINS [facility]. ??Results read back by same. Performed By: #### L 501.4021 #### [facility] [address] [facility]. [place], [place], [id number] Lactic acid measurementOrder ed By: Erick Monsivais on 11-06-2024 Lactate [Moles/Vol] 1.0 mmol/L Normal 0.0-2.0 [facility] Comment on above: Order Comment: Y Performed By: #### L 499.0042 #### [facility] [address] [facility]. [place], [place], [id number] M100.678on 11-06-2024 M100.678 Pending SARS-CoV-2 (COVID 19) Negative INFLUENZA A Negative INFLUENZA B Negative RSV PCR Negative Normal [facility] Comment on above: Performed By: #### L 500.4050, L500.4100, L501.2300, L501.9520, L501.5200, L300.8000 #### [facility] [address] [place], [place], [id number] Microscopic analysis of urin e for red blood cells (RBC)Ordered By: Erick Monsivais on 11-06-2024 Microscopic analysis of urine for red blood cells (RBC) 0 SEEN /hpf 0-5 [facility] Mucus LM Ql (Urine sed)Order ed By: Erick Monsivais on 11-06-2024 Mucus Ql (Urine sed) 0 SEEN /hpf [facility] Nitrite Test strip Ql (U)Ord ered By: Erick Monsivais on 11-06-2024 Nitrite Ql (U) Negative Negative [facility] Partial Thromboplast Timeon 11-06-2024 aPTT Coag (Bld) [Time] s Invalid Interpretation Code 24.1-36.2 [facility] Comment on above: Order Comment: Comme nts: If not done in prior 24 hours Result Comment: CRIT ICAL VALUE CALLED TO JC MOTA (ER) 11/06/24 1209 Cali Mirza. RESULTS READ BACK BY SAME. Performed By: #### L 499.0042 #### [facility] [address] [place], [address] Protein Test strip Ql (U)Ord ered By: Erick Monsivais on 11-06-2024 Protein Ql (U) 15 mg/dl High Negative [facility] Prothrombin Time w/INRon INR Coag (PPP) [Relative time] 1.4 {INR} Normal [facility] Comment on above: Order Comment: Comme nts: If not done in prior 24 hours Performed By: #### L 499.0042 #### [facility] [address] [place], [address] PT Coag (PPP) [Time] 17.0 s High 11.7-14.9 [facility] Comment on above: Order Comment: Comme nts: If not done in prior 24 hours Performed By: #### L 499.0042 #### [facility] [address] [place], [address] Prothrombin timeOrdered By: Erick Monsivais on 11-06-2024 PT Coag (PPP) [Time] 17.0 s High 11.7-14.9 [facility] Serum or plasma C reactive p rotein measurement (mass/volume)Ordered By: Lance Garrett on 11-06-2024 CRP [Mass/Vol] 71.70 mg/L High 0.0-3.0 [facility] Squamous epithelial cells de tection in urine sediment by light microscopyOrdered By: Erick Monsivais on 11-06-2024 Epithelial cells.squamous LM Ql (Urine sed) 0 SEEN /hpf 0-5 [facility] Troponin T HS 2 HRon 025 Trop T High Sen 281 ng/L Invalid Interpretation Code <=22 [facility] Comment on above: Result Comment: Crit ical Result(s) Called at: 1203 11/06/2024 by: DANYA LONG ??Results read back by same. Performed By: #### L 499.0042 #### [facility] [address] [place], [place], [address] Troponin T HS 4 HRon 025 Trop T High Sen 300 ng/L Invalid Interpretation Code <=22 [facility] Comment on above: Result Comment: Crit ical Result(s) Called at: 1511 11/06/2024 by:??JAZMINE SANCHEZ Results read back by same. Performed By: #### L 499.0043 #### [facility] [address] [place], [place], [address] Troponin T.cardiac [Mass/vol ume] in Serum or Plasma by High sensitivity methodOrdered By: Erick Monsivais on 11-06-2024 Troponin T.cardiac High sensitivity method [Mass/Vol] 300 ng/L Critically high <22 [facility] Comment on above: Critical Result(s) C alled at: 1511 11/06/2024 by: JAZMINE SANCHEZ Results read back by same. Troponin T.cardiac High sensitivity method [Mass/Vol] 281 ng/L Critically high <22 [facility] Comment on above: Critical Result(s) C alled at: 1203 11/06/2024 by: DANYA LONG Results read back by same. Troponin T.cardiac High sensitivity method [Mass/Vol] 309 ng/L Critically high <22 [facility] Comment on above: Delta: 36 on 5-0333Critical Result(s) Called at 1019: by: MONCHO WATKINS TO LIANG. Results read back by same. Urinalysis, Completeon 11-06 BACTERIA 1+ /hpf Normal None Seen [facility] Comment on above: Order Comment: CLEAN CATCH Performed By: #### L 501.9985 #### [facility] [address] [place], [address] EPI,SQUAMOUS 0 SEEN Normal 0-5 [facility] Comment on above: Order Comment: CLEAN CATCH Performed By: #### L 501.9985 #### [facility] [address] [place], [address] Mucus Ql (Urine sed) 0 SEEN Normal [facility] Comment on above: Order Comment: CLEAN CATCH Performed By: #### L 501.9985 #### [facility] [address] [place], [address] RBC 0 SEEN Normal 0-[address] [place] [address] Comment on above: Order Comment: CLEAN CATCH Performed By: #### L 501.9985 #### [facility] [address] [place], [address] WBC 0 SEEN Normal 0-[address] [place] [address] Comment on above: Order Comment: CLEAN CATCH Performed By: #### L 501.9985 #### [facility] [address] [place], [address] Urine clarityOrdered By: Ana Monsivais on 11-06-2024 Clarity (U) Clear Clear [facility] Urine color determinationOrd ered By: Erick Monsivais on 11-06-2024 Color (U) Yellow Yellow [facility] Urine glucose detectionOrder ed By: Erick Monsivais on 11-06-2024 Glucose Ql (U) Normal mg/dl Normal [facility] Urine leukocyte esterase det ection by dipstickOrdered By: Erick Monsivais on 11-06-2024 Leukocyte esterase Test strip Ql (U) Negative Negative [facility] Urine pHOrdered By: Erick cabrera on 11-06-2024 pH (U) 6.0 [pH] 5.0 - 8.0 [facility] Urine sediment bacteria coun t by microscopy (number/high power field)Ordered By: Erick Monsivais on 11-06-2024 Bacteria LM.HPF (Urine sed) [#/Area] 1 /[HPF] None Seen [facility] Urine specific gravity measu rementOrdered By: Erick Monsivais on 11-06-2024 Specific gravity (U) [Rel density] 1.015 1.002-1.030 [facility] Urine urobilinogen measureme ntOrdered By: Erick Monsivais on 11-06-2024 Urobilinogen Ql (U) Normal mg/dl Normal [facility] White blood cell countOrdere d By: Erick Monsivais on 11-06-2024 White blood cell count 0 SEEN /hpf 0-5 [facility] CBC W Auto Differential pane l (Bld)on 10-17-2024 Basophils (Bld) [#/Vol] 0.06 10*3/uL Normal <0.11 [facility] Comment on above: Order Comment: Speci men Type: BLOOD SPECIMEN Ordering Facility: [facility] Address: [address] [place] [address] Performed By: #### 2 4323-8, 37902-7 #### [facility] CLIA [id number] [address] [place] [address] [place] Basophils/100 WBC (Bld) 0.7 % Normal C [facility] Comment on above: Order Comment: Speci men Type: BLOOD SPECIMEN Ordering Facility: [facility] Address: [address] [place] [address] Performed By: #### 2 4323-8, 39059-3 #### [facility] CLIA [id number] [address] [place] [address] [place] Differential cell count method Nom (Bld) Auto Normal [facility] Comment on above: Order Comment: Speci men Type: BLOOD SPECIMEN Ordering Facility: [facility] Address: [address] [place] [address] Performed By: #### 2 4323-8, 65344-4 #### [facility] CLIA [id number] [address], [place] [address] [place] Eosinophils (Bld) [#/Vol] 0.24 10*3/uL Normal <0.46 [facility] Comment on above: Order Comment: Speci men Type: BLOOD SPECIMEN Ordering Facility: [facility] Address: [address] [place] [address] Performed By: #### 2 4323-8, 50399-3 #### [facility] CLIA [id number] [address] [place] [address] [place] Eosinophils/100 WBC (Bld) 2.6 % Normal [facility] Comment on above: Order Comment: Speci men Type: BLOOD SPECIMEN Ordering Facility: [facility] Address: [address] [place] [address] Performed By: #### 2 4323-8, 88760-4 #### [facility] CLIA [id number] [address] [place] [address] [place] Erythrocyte distribution width (RBC) [Ratio] 20.3 % High 11.5-15.0 [facility] Comment on above: Order Comment: Speci men Type: BLOOD SPECIMEN Ordering Facility: [facility] Address: [address] [place] [address] Performed By: #### 2 4323-8, 05046-7 #### [facility] CLIA [id number] [address] [place] [address] [place] Hematocrit (Bld) [Volume fraction] 38.5 % Low 39.0-51.0 [facility] Comment on above: Order Comment: Speci men Type: BLOOD SPECIMEN Ordering Facility: [facility] Address: [address] [place] [address] Performed By: #### 2 4323-8, 81050-0 #### [facility] CLIA [id number] [address] [place] [address] [place] Hemoglobin (Bld) [Mass/Vol] 12.9 g/dL Low 13.0-17.0 [facility] Comment on above: Order Comment: Speci men Type: BLOOD SPECIMEN Ordering Facility: [facility] Address: [address] [place] [address] Performed By: #### 2 4323-8, 61731-4 #### [facility] CLIA [id number] [address] [place] [address] [place] Immature granulocytes (Bld) [#/Vol] 0.04 10*3/uL Normal <0.10 [facility] Comment on above: Order Comment: Speci men Type: BLOOD SPECIMEN Ordering Facility: [facility] Address: [address] [place] [address] Performed By: #### 2 4323-8, 99873-7 #### [facility] CLIA [id number] [address] [place] [address] [place] Immature granulocytes/100 WBC (Bld) 0.4 % Normal [facility] Comment on above: Order Comment: Speci men Type: BLOOD SPECIMEN Ordering Facility: [facility] Address: [address] [place] [address] Performed By: #### 2 4323-8, 25726-0 #### [facility] CLIA [id number] [address] [place] [address] [place] Lymphocytes (Bld) [#/Vol] 1.35 10*3/uL Normal 1.00-4.00 [facility] Comment on above: Order Comment: Speci men Type: BLOOD SPECIMEN Ordering Facility: [facility] Address: [address] [place] [address] Performed By: #### 2 4323-8, 49279-4 #### [facility] CLIA [id number] [address] [place] [address] [place] Lymphocytes/100 WBC (Bld) 14.8 % Normal [facility] Comment on above: Order Comment: Speci men Type: BLOOD SPECIMEN Ordering Facility: [facility] Address: [address] [place] [address] Performed By: #### 2 4323-8, 41915-0 #### [facility] CLIA [id number] [address] [place] [address] [place] MCH (RBC) [Entitic mass] 35.6 pg High 26.0-34.0 [facility] Comment on above: Order Comment: Speci men Type: BLOOD SPECIMEN Ordering Facility: [facility] Address: [address] [place] [address] Performed By: #### 2 432-8, 91736-6 #### [facility] CLIA [id number] [address] [place] [address] [place] MCHC (RBC) [Mass/Vol] 33.5 g/dL Normal 30.5-36.0 [facility] Comment on above: Order Comment: Speci men Type: BLOOD SPECIMEN Ordering Facility: [facility] Address: [address] [place] [address] Performed By: #### 2 4323-8, #### [facility] CLIA [id number] [address] [place] [address] [place] MCV (RBC) [Entitic vol] 106.4 fL High 80.0-100.0 C [facility] Comment on above: Order Comment: Speci men Type: BLOOD SPECIMEN Ordering Facility: [facility] Address: [address] [place] [address] Performed By: #### 2 4323-8, #### [facility] CLIA [id number] [address] [place] [address] [place] Monocytes (Bld) [#/Vol] 0.87 10*3/uL High <0.87 [facility] Comment on above: Order Comment: Speci men Type: BLOOD SPECIMEN Ordering Facility: [facility] Address: [address] [place] [address] Performed By: #### 2 4323-8, 40855-3 #### [facility] CLIA [id number] [address] [place] [address] [place] Monocytes/100 WBC (Bld) 9.6 % Normal [facility] Comment on above: Order Comment: Speci men Type: BLOOD SPECIMEN Ordering Facility: [facility] Address: [address] [place], [place] [address] Performed By: #### 2 4323-8, 85898-3 #### [facility] CLIA [id number] [address] [place], [place] [address] [place] Neutrophils (Bld) [#/Vol] 6.54 10*3/uL Normal 1.45-7.50 [facility] Comment on above: Order Comment: Speci men Type: BLOOD SPECIMEN Ordering Facility: [facility] Address: [address] [place] [address] Performed By: #### 2 4323-8, 00802-5 #### [facility] CLIA [id number] [address] [place] [address] [place] Neutrophils/100 WBC (Bld) 71.9 % Normal [facility] Comment on above: Order Comment: Speci men Type: BLOOD SPECIMEN Ordering Facility: [facility] Address: [address] [place] [address] Performed By: #### 2 4323-8, 88702-5 #### [facility] CLIA [id number] [address] [place] [address] [place] Nucleated RBC (Bld) [#/Vol] 10*3/uL Normal <0.01 [facility] Comment on above: Order Comment: Speci men Type: BLOOD SPECIMEN Ordering Facility: [facility] Address: [address] [place] [address] Performed By: #### 2 4323-8, 27550-4 #### [facility] CLIA [id number] [address] [place], [place] [address] [place] Nucleated RBC/100 WBC (Bld) [Ratio] 0.0 /100 WBC Normal [facility] Comment on above: Order Comment: Speci men Type: BLOOD SPECIMEN Ordering Facility: [facility] Address: [address] [place] [address] Performed By: #### 2 4323-8, 25874-8 #### [facility] CLIA [id number] [address] [place] [address] [place] Platelet mean volume (Bld) [Entitic vol] 9.6 fL Normal 9.0-12.7 [facility] Comment on above: Order Comment: Speci men Type: BLOOD SPECIMEN Ordering Facility: [facility] Address: [address] [place] [address] Performed By: #### 2 4323-8, 69206-5 #### [facility] CLIA [id number] [address] [place] [address] [place] Platelets (Bld) [#/Vol] 338 10*3/uL Normal 150-400 [facility] Comment on above: Order Comment: Speci men Type: BLOOD SPECIMEN Ordering Facility: [facility] Address: [address] [place] [address] Performed By: #### 2 4323-8, 23642-5 #### [facility] CLIA [id number] [address] [place] [address] [place] RBC (Bld) [#/Vol] 3.62 10*6/uL Low 4.20-6.00 [facility] Comment on above: Order Comment: Speci men Type: BLOOD SPECIMEN Ordering Facility: [facility] Address: [address] [place] [address] Performed By: #### 2 4323-8, 80352-3 #### [facility] CLIA [id number] [address] [place] [address] [place] WBC (Bld) [#/Vol] 9.10 10*3/uL Normal 3.70-11.00 [facility] Comment on above: Order Comment: Luis zafar Type: BLOOD SPECIMEN Ordering Facility: [facility] Address: [address] [place] [address] Performed By: #### 2 4323-8, 64086-2 #### [facility] CLIA [id number] [address] [place] [address] [place] CNOVSPon 10-17-2024 CNOVSP Visit (SP) Office (HEMAWS) HUSAM BARROW ([id number]) 1950 M Date Time Provider Department 10/17/24 10:20 AM ALVERTO EDWARDS During your visit today, we recorded the following information about you: Temperature Pulse Blood pressure Weight 97 degrees 52/minute 101/67 83.5 kg Alverto Edwards DO 10/17/2024 10:26 AM Signed Oncologic problem(s): 1) Thrombocytosis. HPI: The patient is a 74-year-old male with past medical history as outlined below. Patient has been noted to have an increased white blood cell count for several years. 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 Underwent a bone marrow biopsy on 02/20/2024. The report indicates myeloproliferative neoplasm with fibrosis-1. No increase in blasts were observed. FISH for BCR-ABL was negative. 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 History of prior splenectomy: No. ASA was held last week due to platelet count over 1 million. No prior history of stroke or AK. He does have a history of angina. This was evidently secondary to coronary artery spasm. No unusual bleeding. He has been purposely trying to lose weight. Eating mostly meats, carnivore diet." Presents for ongoing oncologic management. Interim history: Started hydroxyurea. Nausea and malaise with 1000 mg daily. Dose reduced to 500 mg and is now taking it in the evenings. Tolerating better. No reflux or abdominal pain. Has tried to lose weight. Eats about twice a day. Gets early satiety. No dysphagia. PAST MEDICAL HISTORY Diagnosis Date Aortic stenosis echo 2024 Blood in stool Chewing tobacco use Coronary artery spasm Hypertension 02/02/2010 Myeloproliferative neoplasm (HCC) bone marrow biospy 2024 Osteoarthritis, knee bilateral, seeing [facility] Overweight (BMI 25.0-29.9) Pure hypercholesterolemia Syncope 1999 x3 Unspecified asthma(493.90) Unspecified essential hypertension PAST SURGICAL HISTORY Procedure Laterality Date ARTHROSCOPY KNEE DIAGNOSTIC W/WO SYNOVIAL BX SPX Arthroscopy, knee COLONOSCOPY 2008 normal, repeat in 10 years COLONOSCOPY N/A 07/06/2022 COLONOSCOPY FLX DX W/COLLJ SPEC WHEN PFRMD 2003 Colonoscopy EGD W/O [facility] SPEC VARICIES INJ N/A 07/06/2022 PAST SURGICAL HISTORY OF 1998 heart cath PAST SURGICAL HISTORY OF 2005 repair fx left foearm plate and screw PAST SURGICAL HISTORY OF N/A 02/2021 Heart Cath in [place] TONSILLECTOMY AND ADENOIDECTOMY hydroxyurea (HYDREA) 500 mg capsule Take 2 capsules by mouth once daily. buPROPion XL (WELLBUTRIN XL) 300 mg 24 hr tablet Take 1 tablet by mouth once daily. folic acid 1 mg tablet Take 2 tablets by mouth once daily. carvedilol (COREG) 3.125 mg tablet Take 3.125 mg by mouth twice daily. losartan (COZAAR) 25 mg tablet Take 1 tablet by mouth once daily. ALLERGIES Allergen Reactions Toprol Xl [Metoprol* Other: See Comments General illness, felt lousy, GI upset [place] Social History Tobacco Use Smoking status: Never Smokeless tobacco: Former Types: Chew Quit date: 01/12/2023 Vaping Use Vaping status: Never Used Substance Use Topics Alcohol use: Yes Alcohol/week: 1.0 standard drink of alcohol Types: 1 Glasses of Wine (5oz) per week Drug use: No FAMILY HISTORY Problem Relation Age of Onset Heart Mother CHF REVIEW OF SYSTEMS: Constitutional: No episodes of fever and night sweats. Not significantly fatigued. Neuro: No PAYNE, vertigo, dizziness and imbalance. No symptoms of neuropathy. HEENT: No recent change in voice, vision or hearing. Resp: No cough, wheeze and hemoptysis. No shortness of breath at rest. No MATUTE. CVS: No exertional chest pain, PND, orthopnea and LE edema. GI: See above. : No dysuria or gross hematuria. Endo: No hot flashes. Musculoskeletal: No bone, back, joint and muscular pain. Derm: No current rash. No history of jaundice or diffuse pruritis. Heme: No unusual bleeding and unexplained bruising. Psych: Normal mood. PHYSICAL EXAM: Vitals: Blood pressure 101/67, pulse (!) 52, temperature 36.1 ?C (97 ?F), temperature source Temporal, weight 83.5 kg (184 lb), SpO2 97%. Well-appearing and in no acute distress. EYES: Sclerae are anicteric bilaterally. LYMPHATIC: There is no palpable adenopathy. CARDIOVASCULAR: Rhythm is regular. ABDOMEN: The abdomen is nondistended. Cannot appreciate splenomegaly today. SKIN: No jaundice. 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 - Discussed with him the rationale for stopping aspirin since platelet count is over million. - He had intermediate risk disease and platelet count was over million, cytoreductive therapy was indicated. - Reviewed bone marrow biopsy--MF-1, normal karyotype. - Discussed rational (more content not included)... Normal [facility] CBC W Auto Differential pane l (Bld)on 08-19-2024 Basophils (Bld) [#/Vol] 0.05 10*3/uL Normal <0.11 [facility] Comment on above: Order Comment: Luis zafar Type: BLOOD SPECIMENOrdering Facility: [facility] Address: [address] [place] [address] Performed By: #### 5 7021-8 ####[facility] [id number] [place] [address] [place] Basophils/100 WBC (Bld) 1.1 % Normal C [facility] Comment on above: Order Comment: Luis zafar Type: BLOOD SPECIMENOrdering Facility: [facility] Address: [address] [place] [address] Performed By: #### 5 7021-8 ####[facility] [id number] [place] [address] [place] Differential cell count method Nom (Bld) Auto Normal [facility] Comment on above: Order Comment: Speci men Type: BLOOD SPECIMENOrdering Facility: [facility] Address: [address] [place] [address] Performed By: #### 5 7021-8 ####[facility] [id number] [place] [address] [place] Eosinophils (Bld) [#/Vol] 0.17 10*3/uL Normal <0.46 [facility] Comment on above: Order Comment: Speci men Type: BLOOD SPECIMENOrdering Facility: [facility] Address: [address] [place] [address] Performed By: #### 5 7021-8 ####[facility] [id number] [place] [address] [place] Eosinophils/100 WBC (Bld) 3.7 % Normal [facility] Comment on above: Order Comment: Speci men Type: BLOOD SPECIMENOrdering Facility: [facility] Address: [address] [place] [address] Performed By: #### 5 7021-8 ####[facility] [id number] [place] [address] [place] Erythrocyte distribution width (RBC) [Ratio] 20.1 % High 11.5-15.0 [facility] Comment on above: Order Comment: Speci men Type: BLOOD SPECIMENOrdering Facility: [facility] Address: [address] [place] [address] Performed By: #### 5 7021-8 ####[facility] [id number] [place] [address] [place] Hematocrit (Bld) [Volume fraction] 36.7 % Low 39.0-51.0 [facility] Comment on above: Order Comment: Speci men Type: BLOOD SPECIMENOrdering Facility: [facility] Address: [address] [place] [address] Performed By: #### 5 7021-8 ####[facility] [id number] [place] [address] [place] Hemoglobin (Bld) [Mass/Vol] 12.5 g/dL Low 13.0-17.0 [facility] Comment on above: Order Comment: Speci men Type: BLOOD SPECIMENOrdering Facility: [facility] Address: [address] [place] [address] Performed By: #### 5 7021-8 ####[facility] [id number] [place] [address] [place] Immature granulocytes (Bld) [#/Vol] 10*3/uL Normal <0.10 [facility] Comment on above: Order Comment: Speci men Type: BLOOD SPECIMENOrdering Facility: [facility] Address: [address] [place] [address] Performed By: #### 5 7021-8 ####[facility] [id number] [place] [address] [place] Immature granulocytes/100 WBC (Bld) 0.4 % Normal [facility] Comment on above: Order Comment: Speci men Type: BLOOD SPECIMENOrdering Facility: [facility] Address: [address] [place] [address] Performed By: #### 5 7021-8 ####[facility] [id number] [place] [address] [place] Lymphocytes (Bld) [#/Vol] 1.09 10*3/uL Normal 1.00-4.00 [facility] Comment on above: Order Comment: Speci men Type: BLOOD SPECIMENOrdering Facility: [facility] Address: [address] [place] [address] Performed By: #### 5 7021-8 ####[facility]ITAL[facility]CLIA [id number] [address] [place] [facility] Lymphocytes/100 WBC (Bld) 23.5 % Normal [facility] Comment on above: Order Comment: Speci men Type: BLOOD SPECIMENOrdering Facility: [facility] Address: [address] [place] [address] Performed By: #### 5 7021-8 ####[facility]CLIA [id number] [place] [address] [place] MCH (RBC) [Entitic mass] 33.2 pg Normal 26.0-34.0 [facility] Comment on above: Order Comment: Speci men Type: BLOOD SPECIMENOrdering Facility: [facility] Address: [address] [place] [address] Performed By: #### 5 7021-8 ####[facility]ITALNCSARITAA [id number] [address] [place] MCHC (RBC) [Mass/Vol] 34.1 g/dL Normal 30.5-36.0 [facility] Comment on above: Order Comment: Speci men Type: BLOOD SPECIMENOrdering Facility: [facility] Address: [address] [place] [address] Performed By: #### 5 7021-8 ####[facility]ITALNCLIA [id number] [place] [address] [place] MCV (RBC) [Entitic vol] 97.6 fL Normal 80.0-100.0 C [facility] Comment on above: Order Comment: Speci men Type: BLOOD SPECIMENOrdering Facility: [facility] Address: [address] [place] [address] Performed By: #### 5 7021-8 ####[facility] [id number] [place] [address] [place] Monocytes (Bld) [#/Vol] 0.54 10*3/uL Normal <0.87 [facility] Comment on above: Order Comment: Speci men Type: BLOOD SPECIMENOrdering Facility: [facility] SYSTEM Address: [address] [place] [address] Performed By: #### 5 7021-8 ####[facility] ERA [id number] [place] [address] [place] Monocytes/100 WBC (Bld) 11.6 % Normal [facility] [place] Comment on above: Order Comment: Speci men Type: BLOOD SPECIMENOrdering Facility: [facility] Address: [address] [place] [address] Performed By: #### 5 7021-8 ####[facility] ERA [id number] [place] [address] [place] Neutrophils (Bld) [#/Vol] 2.77 10*3/uL Normal 1.45-7.50 [facility] Comment on above: Order Comment: Speci men Type: BLOOD SPECIMENOrdering Facility: [facility] Address: [address] [place] [address] Performed By: #### 5 7021-8 ####[facility] [id number] [place] [address] [place] Neutrophils/100 WBC (Bld) 59.7 % Normal [facility] Comment on above: Order Comment: Speci men Type: BLOOD SPECIMENOrdering Facility: [facility] Address: [address] [place] [address] Performed By: #### 5 7021-8 ####[facility] [id number] [place] [address] [place] Nucleated RBC (Bld) [#/Vol] 10*3/uL Normal <0.01 [facility] Comment on above: Order Comment: Speci men Type: BLOOD SPECIMENOrdering Facility: [facility] Address: [address] [place] [address] Performed By: #### 5 7021-8 ####[facility]ITAL[facility]CLI [id number] [place] [address] [place] Nucleated RBC/100 WBC (Bld) [Ratio] 0.0 /100 WBC Normal [facility] Comment on above: Order Comment: Speci men Type: BLOOD SPECIMENOrdering Facility: [facility] Address: [address] [place] [address] Performed By: #### 5 7021-8 ####[facility]ITALNCLI [id number] [place] [address] [place] Platelet mean volume (Bld) [Entitic vol] 9.3 fL Normal 9.0-12.7 [facility] Comment on above: Order Comment: Speci men Type: BLOOD SPECIMENOrdering Facility: [facility] Address: [address] [place] [address] Performed By: #### 5 7021-8 ####[facility]ITALNCLIA [id number] [place] [address] [place] Platelets (Bld) [#/Vol] 295 10*3/uL Normal 150-400 [facility] Comment on above: Order Comment: Speci men Type: BLOOD SPECIMENOrdering Facility: [facility] Address: [address] [place] [address] Performed By: #### 5 7021-8 ####[facility] [id number] [place] [address] [place] RBC (Bld) [#/Vol] 3.76 10*6/uL Low 4.20-6.00 [facility] Comment on above: Order Comment: Speci men Type: BLOOD SPECIMENOrdering Facility: [facility] Address: [address] [place], [place] [address] Performed By: #### 5 7021-8 ####[facility] CAL[facility]IN JAYNCLIA [id number] [address] [place] WBC (Bld) [#/Vol] 4.64 10*3/uL Normal 3.70-11.00 [facility] Comment on above: Order Comment: Speci men Type: BLOOD SPECIMENOrdering Facility: [facility] Address: [address] [place], [place] [address] [address] Performed By: #### 5 7021-8 ####[facility] CALVIN TIDWELLNCLIA [id number] [address] [place] CNPTammy 08-18-2024 FARIHAN Telephone (HEMAWS) HUSAM BARROW ([id number]) 1950 M Date Time Provider Department 08/18/24 ALVERTO EDWARDS During your visit today, we recorded the following information about you: Sydney Laurent 08/18/2024 8:31 AM Signed Patient states he started taking Hydrea as requested and his left arm is turning black and blue. He also asks when he should have labs again. Please advise. Yaneli Cedeno LPN 08/18/2024 11:11 AM Addendum I spoke with the patient. Platelets 08/05/2024 267. He is currently taking Hydrea 500 mg daily per 08/05/2024 phone note (d/t nausea). Patient denies nausea at this time. Patient states he has a 4 inch circular bruise to left arm between his elbow and wrist. He denies any injury, numbness or tingling. He denies bruising anywhere else. Patient requesting CBC to check platelet count, has a standing order. PSS- please schedule patient for a CBC 08/19/2024 @ 8:00. Patient is aware of appointment date and time. GARIMA Cornell Naomi 08/18/2024 8:49 AM Signed This has been scheduled. Yaneli Rose LPN 08/19/2024 9:16 AM Signed Platelets today are 295. Dr. Littlejohn is aware. Okay to continue Hydrea 500 mg daily. Patient is aware to contact the office for any further bruising or any other issues. Will follow up as scheduled. Yaneli Cedeno LPN Allergies As of Date: 08/18/2024 Noted Allergy Reaction TOPROL XL (METOPROLOL) 05/30/2021 14 - Other: See Comments Comments: General illness, felt lousy, GI upset [facility]COL 01/18/2009 Date Reviewed: 07/08/2024 Reviewed by: Adela Romero Ma, MA - Fully Assessed Reason for Visit: Patient Question [8744] Prescriptions as of 08/19/2024 - hydroxyurea (HYDREA) 500 mg capsule Take 2 capsules by mouth once daily. - buPROPion XL (WELLBUTRIN XL) 300 mg 24 hr tablet Take 1 tablet by mouth once daily. - folic acid 1 mg tablet Take 2 tablets by mouth once daily. - carvedilol (COREG) 3.125 mg tablet Take 3.125 mg by mouth twice daily. - losartan (COZAAR) 25 mg tablet Take 1 tablet by mouth once daily. Meds Comments as of 09/03/2018: Uses [facility]. Problem List As Of Date 08/18/2024 Noted Resolved Other closed fractures of distal end of radius *09/07/2004 09/03/2018 PAIN IN LIMB [M79.609] 09/28/2004 Pure hypercholesterolemia [E78.00] 12/01/2016 Asthma [J45.909] 11/30/2014 Unspecified Essential Hypertension [I10] 02/19/2009 Mixed hyperlipidemia [E78.2] Hypertension [I10] 02/02/2010 11/20/2019 Coronary artery spasm [I20.1] 05/16/2012 Mild intermittent asthma without complication [*11/30/2014 Overweight (BMI 25.0-29.9) [E66.3] Chewing tobacco use [Z72.0] Nonischemic cardiomyopathy (HCC) [I42.8] 05/30/2021 Anxiety with depression [F41.8] 06/01/2022 Blood in stool [K92.1] 07/06/2022 Dark stools [R19.5] 07/06/2022 Stage 3a chronic kidney disease (HCC) [N18.31] 06/03/2024 Aortic stenosis [I35.0] Encounter Status:Closed by ANJU ABARCA on 08/18/24 Normal [facility] CBC W Auto Differential pane l (Bld)on 08-05-2024 Basophils (Bld) [#/Vol] 0.03 10*3/uL Normal <0.11 [facility] Comment on above: Order Comment: Speci men Type: BLOOD SPECIMEN [facility] Address: [address] [place] [address] Performed By: #### 2 4323-8, 34062-4 #### [facility] CLIA [id number] [address] [place] [address] [place] Basophils/100 WBC (Bld) 0.3 % Normal [facility] [place] Comment on above: Order Comment: Speci men Type: BLOOD SPECIMEN [facility] Address: [address] [place] [address] Performed By: #### 2 4323-8, 50239-6 #### [facility] CLIA [id number] [address] [place] [address] [place] Differential cell count method Nom (Bld) Auto Normal [facility] Comment on above: Order Comment: Speci men Type: BLOOD SPECIMEN [facility] Address: [address] [place] [address] Performed By: #### 2 4323-8, 78234-7 #### [facility] CLIA [id number] [address] [place] [address] [place] Eosinophils (Bld) [#/Vol] 0.03 10*3/uL Normal <0.46 [facility] Comment on above: Order Comment: Speci men Type: BLOOD SPECIMEN [facility] Address: [address] [place] [address] Performed By: #### 2 4323-8, 62812-5 #### [facility] CLIA [id number] [address] [place] [address] [place] Eosinophils/100 WBC (Bld) 0.3 % Normal [facility] Comment on above: Order Comment: Speci men Type: BLOOD SPECIMEN [facility] Address: [address] [place] [address] Performed By: #### 2 4323-8, 85471-4 #### [facility] CLIA [id number] [address] [place] [address] [place] Erythrocyte distribution width (RBC) [Ratio] 19.9 % High 11.5-15.0 [facility] Comment on above: Order Comment: Speci men Type: BLOOD SPECIMEN [facility] Address: [address] [place] [address] Performed By: #### 2 4323-8, 56698-3 #### [facility] CLIA [id number] [address] [place] [address] [place] Hematocrit (Bld) [Volume fraction] 37.1 % Low 39.0-51.0 [facility] Comment on above: Order Comment: Speci men Type: BLOOD SPECIMEN [facility] Address: [address] [place] [address] Performed By: #### 2 4323-8, 98826-3 #### [facility] CLIA [id number] [address] [place] [address] [place] Hemoglobin (Bld) [Mass/Vol] 12.7 g/dL Low 13.0-17.0 [facility] Comment on above: Order Comment: Speci men Type: BLOOD SPECIMEN [facility] Address: [address] [place] [address] Performed By: #### 2 4323-8, 92596-7 #### [facility] CLIA [id number] [address] [place] [address] [place] Immature granulocytes (Bld) [#/Vol] 0.03 10*3/uL Normal <0.10 [facility] Comment on above: Order Comment: Speci men Type: BLOOD SPECIMEN [facility] Address: [address] [place] [address] Performed By: #### 2 4323-8, 38254-6 #### [facility] CLIA [id number] [address] [place] [address] [place] Immature granulocytes/100 WBC (Bld) 0.3 % Normal [facility] Comment on above: Order Comment: Speci men Type: BLOOD SPECIMEN [facility] Address: [address] [place] [address] Performed By: #### 2 4323-8, 97878-9 #### [facility] CLIA [id number] [address] [place] [address] [place] Lymphocytes (Bld) [#/Vol] 1.43 10*3/uL Normal 1.00-4.00 [facility] Comment on above: Order Comment: Speci men Type: BLOOD SPECIMEN [facility] Address: [address] [place] [address] Performed By: #### 2 4323-8, 59493-8 #### [facility] CLIA [id number] [address] [place] [address] [place] Lymphocytes/100 WBC (Bld) 14.7 % Normal [facility] Comment on above: Order Comment: Speci men Type: BLOOD SPECIMEN [facility] Address: [address] [place] [address] Performed By: #### 2 4323-8, 05443-0 #### [facility] CLIA [id number] [address] [place] [address] [place] MCH (RBC) [Entitic mass] 33.0 pg Normal 26.0-34.0 [facility] Comment on above: Order Comment: Speci men Type: BLOOD SPECIMEN [facility] Address: [address] [place] [address] Performed By: #### 2 4323-8, 61210-4 #### [facility] CLIA [id number] [address] [place] [address] [place] MCHC (RBC) [Mass/Vol] 34.2 g/dL Normal 30.5-36.0 [facility] Comment on above: Order Comment: Speci men Type: BLOOD SPECIMEN [facility] Address: [address] [place] [address] Performed By: #### 2 4323-8, #### [facility] CLIA [id number] [address] [place] [address] [place] MCV (RBC) [Entitic vol] 96.4 fL Normal 80.0-100.0 C [facility] Comment on above: Order Comment: Speci men Type: BLOOD SPECIMEN [facility] Address: [address] [place] [address] Performed By: #### 2 4323-8, #### [facility] CLIA [id number] [address] [place] [address] [place] Monocytes (Bld) [#/Vol] 0.95 10*3/uL High <0.87 [facility] Comment on above: Order Comment: Speci men Type: BLOOD SPECIMEN [facility] Address: [address] [place] [address] Performed By: #### 2 4323-8, 84735-0 #### [facility] CLIA [id number] [address] [place] [address] [place] Monocytes/100 WBC (Bld) 9.8 % Normal [facility] [place] Comment on above: Order Comment: Speci men Type: BLOOD SPECIMEN [facility] Address: [address] [place], [place] [address] Performed By: #### 2 4323-8, 81740-9 #### [facility] CLIA [id number] [address] [place], [place] [address] [place] Neutrophils (Bld) [#/Vol] 7.24 10*3/uL Normal 1.45-7.50 [facility] Comment on above: Order Comment: Speci men Type: BLOOD SPECIMEN [facility] Address: [address] [place] [address] Performed By: #### 2 4323-8, 66598-9 #### [facility] CLIA [id number] [address] [place] [address] [place] Neutrophils/100 WBC (Bld) 74.6 % Normal [facility] Comment on above: Order Comment: Speci men Type: BLOOD SPECIMEN [facility] Address: [address] [place] [address] Performed By: #### 2 4323-8, 88072-2 #### [facility] CLIA [id number] [address] [place] [address] [place] Nucleated RBC (Bld) [#/Vol] 10*3/uL Normal <0.01 [facility] Comment on above: Order Comment: Speci men Type: BLOOD SPECIMEN [facility] Address: [address] [place], [place] [address] Performed By: #### 2 4323-8, 22688-8 #### [facility] CLIA [id number] [address] [place], [place] [address] [place] Nucleated RBC/100 WBC (Bld) [Ratio] 0.0 /100 WBC Normal [facility] Comment on above: Order Comment: Speci men Type: BLOOD SPECIMEN [facility] Address: [address] [place] [address] Performed By: #### 2 4323-8, 28445-5 #### [facility] CLIA [id number] [address] [place] [address] [place] Platelet mean volume (Bld) [Entitic vol] 10.1 fL Normal 9.0-12.7 [facility] Comment on above: Order Comment: Speci men Type: BLOOD SPECIMEN [facility] Address: [address] [place] [address] Performed By: #### 2 4323-8, 87026-2 #### [facility] CLIA [id number] [address] [place] [address] [place] Platelets (Bld) [#/Vol] 267 10*3/uL Normal 150-400 [facility] Comment on above: Order Comment: Speci men Type: BLOOD SPECIMEN [facility] Address: [address] [place] [address] Performed By: #### 2 4323-8, 19186-6 #### [facility] CLIA [id number] [address] [place] [address] [place] RBC (Bld) [#/Vol] 3.85 10*6/uL Low 4.20-6.00 [facility] Comment on above: Order Comment: Speci men Type: BLOOD SPECIMEN [facility] Address: [address] [place] [address] Performed By: #### 2 4323-8, 20254-2 #### [facility] CLIA [id number] [address] [place] [address] [place] WBC (Bld) [#/Vol] 9.71 10*3/uL Normal 3.70-11.00 [facility] Comment on above: Order Comment: Luis zafar Type: BLOOD SPECIMEN [facility] Address: [address] [place] [address] Performed By: #### 2 4323-8, 82286-5 #### [facility] CLIA [id number] [address] [place] [address] [place] [address] [place] CNPNon 08-05-2024 CNPN Telephone (HEMAWS) HUSAM BARROW ([id number]) 1950 M Date Time Provider Department 08/05/24 ALVERTO EDWARDS HEMEDIS During your visit today, we recorded the following information about you: Alverto Edwards DO 08/05/2024 8:42 AM Signed Can let him know that the hospitalist from [facility] called me about his admission. Not clear that it was due to the hydroxyurea but I was told he was hesitant to restart it. That is okay. Counts are okay right now. I would encourage him to keep his follow-up as scheduled in September though. Recheck CBC then if not already on the appointment schedule. DO Mariano Moreno Pamela S, LPN 08/05/2024 8:46 AM Addendum Message left on voicemail to contact office concerning previous message. GARIMA Rao Pamela S, LPN 08/05/2024 8:54 AM Signed Spoke with pt.he thinks he could possibly take 1 hydrea capsule a day. States he took Sunday evening dose , then shortly after vomited them up, had none on Sunday, then took one on Sunday . Had CBC done this morning . Wondering if he can only take 1 daily until his appt. In September? GARIMA Rao Paul A, DO 08/05/2024 10:39 AM Signed Yes. Take with breakfast. If nausea is or continues to be a problem, then I can send in antinausea medicine and for him to use as well. DO Mariano Moreno Pamela S, LPN 08/05/2024 10:51 AM Signed Spoke with pt. Informed he can take 1 Hydrea capsule in the morning with breakfast. If nausea continues Dr. Edwards can send in an antinausea medication. Pt. Voiced understanding. Jennifer Lau LPN Allergies As of Date: 08/05/2024 Noted Allergy Reaction TOPROL XL (METOPROLOL) 05/30/2021 14 - Other: See Comments Comments: General illness, felt lousy, GI upset [place]COL 01/18/2009 Date Reviewed: 07/08/2024 Reviewed by: Adela Romero Ma, MA - Fully Assessed Reason for Visit: Follow Up [171] Prescriptions as of 08/05/2024 - hydroxyurea (HYDREA) 500 mg capsule Take 2 capsules by mouth once daily. - buPROPion XL (WELLBUTRIN XL) 300 mg 24 hr tablet Take 1 tablet by mouth once daily. - folic acid 1 mg tablet Take 2 tablets by mouth once daily. - carvedilol (COREG) 3.125 mg tablet Take 3.125 mg by mouth twice daily. - losartan (COZAAR) 25 mg tablet Take 1 tablet by mouth once daily. Meds Comments as of 09/03/2018: Uses [facility] Problem List As Of Date 08/05/2024 Noted Resolved Other closed fractures of distal end of radius *09/07/2004 09/03/2018 PAIN IN LIMB [M79.609] 09/28/2004 Pure hypercholesterolemia [E78.00] 12/01/2016 Asthma [J45.909] 11/30/2014 Unspecified Essential Hypertension [I10] 02/19/2009 Mixed hyperlipidemia [E78.2] Hypertension [I10] 02/02/2010 11/20/2019 Coronary artery spasm [I20.1] 05/16/2012 Mild intermittent asthma without complication [*11/30/2014 Overweight (BMI 25.0-29.9) [E66.3] Chewing tobacco use [Z72.0] Nonischemic cardiomyopathy (HCC) [I42.8] 05/30/2021 Anxiety with depression [F41.8] 06/01/2022 Blood in stool [K92.1] 07/06/2022 Dark stools [R19.5] 07/06/2022 Stage 3a chronic kidney disease (HCC) [N18.31] 06/03/2024 Aortic stenosis [I35.0] Encounter Status:Closed by JENNIFER LAU on 08/05/24 Normal [facility] Urine Cultureon 08-04-2024 URC #1, 2 Below infectio n level. Presumptive E. coli [place] Count <1000 Mixed Gram Positive Organisms Mixed Gram Positive Organisms MIXC Mixed contaminants. Submit a new specimen if indicated. Normal [facility] Comment on above: Performed By: #### L 499.0042 #### [facility] [address] [place], [address] 12 Lead EKGon 08-03-2024 12 Lead EKG [facility] Cardiovascular Services [address] [place] [address] 12 Lead EKG 08/02/24 2335 MR#: [id number] Acct: [id number] Name: HUSAM BARROW Rep #: [id number] : 1950 74 From: Lance Garrett MD Attending Dr: Dr. Brien Cunha, DO Status: D IS OPAL Ordering Dr: Maxim Guzman MD Date: 08/03/24 Location: [facility] Sex: M C Admitted: 08/03/24 Test Reason : GEN ILL Blood Pressure : */* mmHG Vent. Rate : 46 BPM Atrial Rate : 46 BPM P-R Int : 158 ms QRS Dur : 136 ms QT Int : 526 ms P-R-T Axes : 44 -5 -9 degrees QTcB Int : 460 ms Sinus bradycardia Right bundle branch block Abnormal ECG Confirmed by Lance Garrett ([id number]), editor trade journal TANA MURPHY ([id number]) on 08/05/2024 11:36:27 AM Referred By: Confirmed By: Lance Garrett 08/05/24 1136 Date Lance Garrett MD CC: Dr. Maxim Guzman MD; Dr. Brien Singer MD; Dr. Brien Cunha DO Signed Normal [facility] Absolute lymphocyte countOrd ered By: Jasper Bernstein on 08-03-2024 Lymphocytes Auto (Unsp spec) [#/Vol] 0.82 10*3/uL Low 0.83-4.51 [facility] Absolute neutrophil countOrd ered By: Jasper Bernstein on 08-03-2024 Neutrophils (Bld) [#/Vol] 2.7 10*3/uL 2.0-7.7 [facility] Amorphous sediment detection in urine sediment by light microscopyOrdered By: Maxim Guzman on 08-03-2024 Amorphous sediment LM Ql (Urine sed) 1+ [facility] Anion gap in Serum or Plasma Ordered By: Jasper Bernstein on 08-03-2024 Anion gap [Moles/Vol] 11 mmol/L 5-15 [facility] Automated blood erythrocyte countOrdered By: Maxim Guzman on 08-03-2024 RBC (Bld) [#/Vol] 3.83 10*6/uL Low 4.6-6.2 [facility] Comment on above: Performed By: #### L 501.9985 #### [facility] [address] [facility] [id number] Automated blood hematocrit ( percentage)Ordered By: Maxim Guzman on 08-03-2024 Hematocrit (Bld) [Volume fraction] 36.6 % Low 40-54 [facility] Comment on above: Performed By: #### L 501.9985 #### [facility] [address] [facility] [address] Automated lymphocyte count a s percentage of total leukocytesOrdered By: Jasper Bernstein on 08-03-2024 Lymphocytes/100 WBC Auto (Unsp spec) 19.5 % 19- [facility] BUN/creatinine ratioOrdered By: Jasper Bernstein on 08-03-2024 Urea nitrogen/Creatinine [Mass ratio] 13.3 mg/mg 10-20 [facility] Basophil percentageOrdered B y: Jasper Patelo on 08-03-2024 Basophils/100 WBC (Bld) 0.5 % 0-1 [facility] Basophil percentageOrdered B y: Maxim Shawnakinglucero on 08-03-2024 Basophils/100 WBC (Bld) 0.9 % Normal 0-1 [facility] Comment on above: Performed By: #### L 501.9985 #### [facility] [address] [place], [place], [id number] Bilirubin Test strip Ql (U)O rdered By: Maxim Guzman on 08-03-2024 Bilirubin Ql (U) Negative Negative [facility] Bilirubin, totalOrdered By: Jasper Patelo on 08-03-2024 Bilirubin [Mass/Vol] 0.79 mg/dL 0.00-1.30 [facility] Bilirubin, totalOrdered By: Maxim Guzman on 08-03-2024 Bilirubin [Mass/Vol] 0.90 mg/dL Normal 0.00-1.30 [facility] Comment on above: Performed By: #### L 501.9985 #### [facility] [address] [place], [place], [id number] Brain/Head without Contrasto n 08-03-2024 Brain/Head without Contrast [facility] Imaging Services [address] [place], [place] [address] Brain/Head without Contrast MR#: [id number] Acct: [id number] Name: HUSAM BARROW Rep #: [id number] : 1950 M 74 From: Chelsey burr MD PCP: Dr. Brien Singer MD Status: PRE ER Study: Brain/Head without Contrast Date of Exam: 07/14 04/08 Exam# [id number] Ordering Dr: Maxim Guzman MD PROCEDURE: BRAIN/HEAD WITHOUT CONTRAST 08/03/2024 REASON FOR EXAM: SYNCOPE, DIZZINESS TECHNIQUE: BRAIN/HEAD WITHOUT CONTRAST Coronal and Sagittal reconstruction series were provided. One or more dose reduction techniques were used (e.g., Automated exposure control, adjustment of the mA and/or kV according to patient size, use of iterative reconstruction technique. RADIATION DOSE SUMMARY: CTDlvol: 44 mGy DLP: 779.9 mGycm COMPARISON: None. FINDINGS: Mild diffuse cortical atrophy, commensurate with the patient's age. Scattered hypodense foci in the periventricular and subcortical white matter suggestive of chronic ischemic white matter disease. Normal size of the ventricles and extra-axial spaces for the patient's age. Normal basal ganglia and thalami. Normal brainstem. Normal cerebellum. There is no demonstrated extra-axial, intraparenchymal, or intraventricular hemorrhage. There are no findings of an acute ischemic infarction. Normal calvarium. There is no demonstrated fracture. Normal soft tissue structures. Normal visualized paranasal sinuses. CT/Brain/Head without Contrast IMPRESSION: No CT evidence for acute brain abnormality. Reading Location: [place] [address] CC: Dr. Maxim Guzman MD; Dr. Brien Singer MD [place]: Signed Normal [facility] CBC W/Diff, Automatedon 06- Absolute Lymph 0.82 X10 3/uL Low 0.83-4.51 [facility] Comment on above: Performed By: #### L 499.0042 #### [facility] [address] [place], [address] Absolute Neut 2.7 X10 3/uL Normal 2.0-7.7 [facility] Comment on above: Performed By: #### L 499.0042 #### [facility] [address] [place], [address] Basophils/100 WBC (Bld) 0.5 % Normal 0-1 [facility] Comment on above: Performed By: #### L 499.0042 #### [facility] [address] [place], [address] Eosinophils/100 WBC (Bld) 0.7 % Normal 0-5 [facility] Comment on above: Performed By: #### L 499.0042 #### [facility] [address] [place], [address] Erythrocyte distribution width (RBC) [Ratio] 18.5 % High 11.6-14.6 [facility] Comment on above: Performed By: #### L 499.0042 #### [facility] [address] [place], [address] Hematocrit (Bld) [Volume fraction] 34.1 % Low 40-54 [facility] Comment on above: Performed By: #### L 499.0042 #### [facility] [address] [place], [address] Hemoglobin (Bld) [Mass/Vol] 11.8 g/dL Low 13.0-16.5 [facility] Comment on above: Performed By: #### L 499.0042 #### [facility] [address] [place], [address] IG% 0.500 Normal 0.0-0.9 [facility] Comment on above: Result Comment: IG% - Immature Granulocytes (promyelocytes, myelocytes and metamyelocytes) > 1% indicates that a LEFT SHIFT is Present. Performed By: #### L 499.0042 #### [facility] [address] [place], [address] Lymphocytes/100 WBC (Bld) 19.5 % Normal 19-41 [facility] Comment on above: Performed By: #### L 499.0042 #### [facility] [address] [place], [address] MCH (RBC) [Entitic mass] 33.1 pg High 27.0-32.0 [facility] Comment on above: Performed By: #### L 499.0042 #### [facility] [address] [place], [address] MCHC (RBC) [Mass/Vol] 34.6 g/dL Normal 32-36 [facility] Comment on above: Performed By: #### L 499.0042 #### [facility] [address] [place], [address] MCV (RBC) [Entitic vol] 95.5 fL High 80-94 [facility] Comment on above: Performed By: #### L 499.0042 #### [facility] [address] [place], [address] Monocytes/100 WBC (Bld) 14.8 % High 0-10 [facility] Comment on above: Performed By: #### L 499.0042 #### [facility] [address] [place], [address] Neutrophils/100 WBC (Bld) 64.0 % Normal 47-70 [facility] Comment on above: Performed By: #### L 499.0042 #### [facility] [address] [place], [address] Nucleated RBC (Bld) [#/Vol] 0 10*3/uL Normal 0-5 [facility] Comment on above: Performed By: #### L 499.0042 #### [facility] [address] [place], [address] Platelet mean volume (Bld) [Entitic vol] 10.3 fL Normal 6.2-12.0 [facility] Comment on above: Performed By: #### L 499.0042 #### [facility] [address] [place], [address] Platelets (Bld) [#/Vol] 172 10*3/uL Normal 150-450 [facility] Comment on above: Performed By: #### L 499.0042 #### [facility] [address] [place], [address] RBC (Bld) [#/Vol] 3.57 10*6/uL Low 4.6-6.2 [facility] Comment on above: Performed By: #### L 499.0042 #### [facility] [address] [place], [address] RDW SD 61.8 fl High 35.1-43.9 [facility] Comment on above: Performed By: #### L 499.0042 #### [facility] [address] [place], [address] WBC (Bld) [#/Vol] 4.2 10*3/uL Low 4.4-11.0 [facility] Comment on above: Performed By: #### L 499.0042 #### [facility] [address] [place], [address] Absolute Lymph 0.93 X10 3/uL Normal 0.83-4.51 [facility] Comment on above: Performed By: #### L [id number] #### [facility] [address] [place], [address] Absolute Neut 2.5 X10 3/uL Normal 2.0-7.7 [facility] Comment on above: Performed By: #### L [id number] #### [facility] [address] [place], [address] IG% 0.200 Normal 0.0-0.9 [facility] Comment on above: Result Comment: IG% - Immature Granulocytes (promyelocytes, myelocytes and metamyelocytes) > 1% indicates that a LEFT SHIFT is Present. Performed By: #### L [id number] #### [facility] [address] [place], [address] Lymphocytes/100 WBC (Bld) 21.7 % Normal 19-41 [facility] Comment on above: Performed By: #### L 501.9985 #### [facility] [address] [place], [address] Nucleated RBC (Bld) [#/Vol] 0 10*3/uL Normal 0-5 [facility] Comment on above: Performed By: #### L [id number] #### [facility] [address] [place], [place], [address] RDW SD 59.7 fl High 35.1-43.9 [facility] Comment on above: Performed By: #### L 501.9985 #### [facility] [address] [place], [place], [address] Carbon dioxide, total [Moles /volume] in Central venous bloodOrdered By: Jasper Bernstein on 08-03-2024 CO2 [Moles/Vol] 25.4 mmol/L 21.0-32.0 [facility] Carbon dioxide, total [Moles /volume] in Central venous bloodOrdered By: Maxim Guzman on 08-03-2024 CO2 [Moles/Vol] 24.6 mmol/L Normal 21.0-32.0 [facility] Comment on above: Performed By: #### L 501.9985 #### [facility] [address] [place], [address] Chloride assayOrdered By: Víctor Bernstein on 08-03-2024 Chloride [Moles/Vol] 104 mmol/L 98-108 [facility] Chloride assayOrdered By: Anderson Guzman on 08-03-2024 Chloride [Moles/Vol] 102 mmol/L Normal 98-108 [facility] Comment on above: Performed By: #### L 501.9985 #### [facility] [address] [place], [place], [address] Comprehensive Metabolic Prof ilon 08-03-2024 Albumin [Mass/Vol] 3.7 g/dL Normal 3.4-4.8 [facility] Comment on above: Performed By: #### L 499.0042 #### [facility] [address] [place], [place], [address] Albumin/Globulin [Mass ratio] 1.6 {ratio} Normal 0.9-2.4 [facility] Comment on above: Performed By: #### L 499.0042 #### [facility] [address] [place], [address] ALK PHOS 99 U/L Normal 40-129 [facility] Comment on above: Performed By: #### L 499.0042 #### [facility] [address] [place], [address] ALT [Catalytic activity/Vol] 22 U/L Normal <=46 [facility] Comment on above: Performed By: #### L 499.0042 #### [facility] [address] [place], [address] AST [Catalytic activity/Vol] 39 U/L High <=37 [facility] Comment on above: Performed By: #### L 499.0042 #### [facility] [address] [place], [address] Bilirubin [Mass/Vol] 0.79 mg/dL Normal 0.00-1.30 [facility] Comment on above: Performed By: #### L 499.0042 #### [facility] [address] [place], [address] BUN/CRE 13.3 RATIO Normal 10-20 [facility] Comment on above: Performed By: #### L 499.0042 #### [facility] [address] [place], [address] Calcium [Mass/Vol] 8.9 mg/dL Normal 7.6-11.0 [facility] Comment on above: Performed By: #### L 499.0042 #### [facility] [address] [place], [address] Chloride [Moles/Vol] 104 mmol/L Normal 98-108 [facility] Comment on above: Performed By: #### L 499.0042 #### [facility] [address] [place], [address] CO2 [Moles/Vol] 25.4 mmol/L Normal 21.0-32.0 [facility] Comment on above: Performed By: #### L 499.0042 #### [facility] [address] [place], [address] Creatinine [Mass/Vol] 1.17 mg/dL Normal 0.70-1.20 [facility] Comment on above: Performed By: #### L 499.0042 #### [facility] [address] [place], [address] ECRCL 57.21 ml/min Normal 50-250 [facility] Comment on above: Performed By: #### L 499.0042 #### [facility] [address] [place], [address] GAP 11 Normal 5-15 [facility] Comment on above: Performed By: #### L 499.0042 #### [facility] [address] [place], [address] GFR/1.73 sq M.predicted among non-blacks MDRD (S/P/Bld) [Vol rate/Area] 65 mL/min/{1.73_m2} Normal >60 [facility] Comment on above: Result Comment: mL/m in/1.73m2 CKD-EPI Creatinine Equation (2020) Performed By: #### L 499.0042 #### [facility] [address] [place], [address] Globulin (S) [Mass/Vol] 2.3 g/dL Normal 2.2-4.2 [facility] Comment on above: Performed By: #### L 499.0042 #### [facility] [address] [place], [address] Glucose [Mass/Vol] 112 mg/dL High 70-99 [facility] Comment on above: Performed By: #### L 499.0042 #### [facility] [address] [place], [address] Potassium [Moles/Vol] 3.2 mmol/L Low 3.3-5.1 [facility] Comment on above: Performed By: #### L 499.0042 #### [facility] [address] [place], [address] Sodium [Moles/Vol] 140 mmol/L Normal 133-145 [facility] Comment on above: Performed By: #### L 499.0042 #### [facility] [address] [place], [address] T PROT 6.0 g/dL Normal 5.9-8.4 [facility] Comment on above: Performed By: #### L 499.0042 #### [facility] [address] [place], [address] Urea nitrogen [Mass/Vol] 16 mg/dL Normal 4-19 [facility] Comment on above: Performed By: #### L 499.0042 #### [facility] [address] [place], [address] ALK PHOS 108 U/L Normal 40-129 [facility] Comment on above: Performed By: #### L [id number] #### [facility] [address] [place], [address] BUN/CRE 12.5 RATIO Normal 10-20 [facility] Comment on above: Performed By: #### L [id number] #### [facility] [address] [place], [address] ECRCL 47.81 ml/min Low 50-250 [facility] Comment on above: Performed By: #### L [id number] #### [facility] [address] [place], [address] GAP 13 Normal 5-15 [facility] Comment on above: Performed By: #### L [id number] #### [facility] [address] [place], [place], [address] Potassium [Moles/Vol] 3.4 mmol/L Normal 3.3-5.1 [facility] Comment on above: Performed By: #### L [id number] #### [facility] [address] [place], [place], [address] T PROT 6.6 g/dL Normal 5.9-8.4 [facility] Comment on above: Performed By: #### L 501.9985 #### [facility] [address] [place], [place], [address] Comprehensive Metabolic Prof ilOrdered By: Maxim Guzman on 08-03-2024 AST [Catalytic activity/Vol] 43 U/L High <=37 [facility] Comment on above: Performed By: #### L 501.9985 #### [facility] [address] [place], [place], [address] Discharge Instructionon 07-14 Discharge Instruction [facility] Medical Records Department [address] [place] [address] Instructions for Home/Discharge Instructions 08/03/24 0929 MR#: [id number] Acct: [id number] Name: HUSAM BARROW Rep #: [id number] : 1950 74 From: Brien Cunha DO PCP: Dr. Brien Singer MD Status:ADM OPAL Discharge Instructions Diet Discharge Diet: No restrictions DC O2, CPAP, BIPAP needs Home O2 Discharge instructions: No Dressing / Incision Discharge Activity: Return to Normal Activity Weight Bearing Status: Full weight bearing Follow Up Care Test Results: Test results from this visit will be discussed in further detail at your follow-up appointment, if applicable. Discharge Plan Admission Admit Date/Time: 08/03/24 01:44 Primary Reason for Your Visit: Syncope Attending Provider: Brien Cunha Primary Care Provider: Brien Singer Consulting Providers: Jasper Morrison Instructions Additional Instructions / Restrictions: Contact your oncologist to discuss your use of hydroxyurea Discharge Orders/Prescriptions Prescriptions: Continued diltiazem HCl 180 MG capsule,extended release 24hr 1 cap PO DAILY Patient Comments: TAKE 1 CAPSULE BY MOUTH ONCE DAILY acetaminophen 325 MG tablet 650 mg PO Q6H PRN PRN (Reason: Pain Score 1-10/Temp > 100.7 F) 0RF losartan 50 mg tablet 25 mg PO DAILY Patient Comments: TAKE 1 TABLET BY MOUTH ONCE DAILY atorvastatin 40 mg tablet 20 mg PO DAILY Patient Comments: TAKE 1 TABLET BY MOUTH ONCE DAILY AT BEDTIME aspirin 81 mg tablet,delayed release (DR/EC) 81 mg PO DAILY Patient Comments: TAKE 1 TABLET BY MOUTH ONCE DAILY folic acid 1 mg tablet 1 mg PO DAILY Patient Comments: TAKE 2 TABLETS BY MOUTH ONCE DAILY bupropion HCl 300 mg tablet extended release 24 hr 300 mg PO DAILY Patient Comments: TAKE 1 TABLET BY MOUTH ONCE DAILY Changed carvedilol 3.125 mg tablet 6.25 mg PO DAILY Qty: 1 0RF Patient Comments: TAKE 1 TABLET BY MOUTH TWICE DAILY Rx Instructions: Reduce carvedilol to 6.25 mg twice a day Held hydroxyurea 500 mg capsule 500 mg PO DAILY Hold Instructions: Discussed resuming this medication with your oncologist Referrals / Follow Up: Brien Singer MD [Primary Care Provider] - Within 2 Weeks Disposition Disposition (needs filled in before D/C Order can be placed): Home, Self Care 08/03/24 0938 Brien Cunha DO CC: Dr. Jasper Morrison DO; Dr. Brien Singer MD Signed Normal [facility] Emergency Department Summary on 08-03-2024 Emergency Department Summary [facility] Medical Records Department [address] [place] [address] Emergency Department Summary 08/03/24 MR#: [id number] Acct: [id number] Name: HUSAM BARROW Rep #: [id number] : 1950 74 From: Maxim Guzman MD PCP: Dr. Brien Singer MD Status:ADM OPAL Location: [address] History of Present Illness Chief Complaint: Syncope Narrative Narrative: 74-year-old male past medical history of hypertension, on carvedilol, presents with syncopal episode this evening. He and his family relate history that he was not feeling well all day. He was around 10:00 in the morning where he did not feel well. He went about his day. This evening, he had a syncopal episode very briefly. He is feeling weak and tired and laid back on the bed. He denies any chest pain or shortness of breath. His family reports that he passed out on the bathroom floor for less than 2 minutes. He had nausea and vomiting as well. [facility] Medical History High platelet count CAD (coronary artery disease) Hypertension Angina of effort Home Medications ???Medication ???Instructions ???Recorded ???Last Taken ???Type acetaminophen 325 mg tablet 650 mg (2 x 325 mg) PO Q6H PRN PRN 11/28/19 Unknown Rx Pain Score 1-10/Temp > 100.7 F diltiazem HCl 180 mg 1 cap PO DAILY Check with primary 11/28/19 11/27/19 08:00 History capsule,extended release 24 hr doctor aspirin 81 mg tablet,delayed 81 mg PO DAILY 06/24/22 Unknown Hi story release atorvastatin 40 mg tablet 40 mg PO DAILY 06/24/22 Unknown Hi story bupropion HCl 300 mg 24 hr tablet, 300 mg PO DAILY 06/24/22 Unknown History extended release carvedilol 3.125 mg tablet 12.5 mg PO DAILY 06/24/22 Unknown History folic acid 1 mg tablet 1 mg PO DAILY 06/24/22 Unknown His tory losartan 50 mg tablet 50 mg PO DAILY 06/24/22 Unknown Hi story hydroxyurea 500 mg capsule 500 mg PO DAILY 08/03/24 Unknown H istory Allergy/AdvReac Type Severity Reaction Status Date / Time No Known Allergies Allergy Verified 08/02/24 23:38 Social History Smoking Status: Never smoker ROS ROS ED ROS Narrative Review of systems positive for syncopal episode. Positive generalized weakness. Denies headache or chest pain. No exacerbating or alleviating factors. EXAM Physical Exam Narrative Exam Narrative: Afebrile. Vital signs noted. Nontoxic-appearing. Awake, alert, interactive. Cardiovascular examination reveals bradycardia in the 40s. Lungs are clear to auscultation bilaterally. Abdomen soft nontender without guarding or rebound. Neurological examination nonfocal, nonlateralizing. Const Vital Signs: 08/02/24 23:32 08/02/24 23:41 08/02/24 23:41 Temperature 97.7 F L Temperature Source Oral Pulse Rate 45 L Pulse Rate [Lying] Pulse Rate [Sitting (for 1 minute prior to obtaining)] Pulse Rate [Standing (for 1 minute prior to obtaining)] Respiratory Rate 15 Respiratory Effort Normal Non-Labored Normal Respiratory Depth Normal Respiratory Pattern Normal Normal Blood Pressure 95/70 Blood Pressure [Lying] Blood Pressure [Sitting (for 1 minute prior to obtaining)] Blood Pressure [Standing (for 1 minute prior to obtaining)] Blood Pressure Mean 78 Blood Pressure Mean [Lying] Blood Pressure Mean [Sitting (for 1 minute prior to obtaining)] Blood Pressure Mean [Standing (for 1 minute prior to obtaining)] Pulse Ox 94 Oxygen Delivery Method Room Air Room Air 08/03/24 00:48 08/03/24 00:59 08/03/24 01:02 Temperature Temperature Source Pulse Rate 46 L 54 L Pulse Rate [Lying] 44 L Pulse Rate [Sitting (for 1 minute prior to obtaining)] 46 L Pulse Rate [Standing (for 1 minute prior to obtaining)] 47 L Respiratory Rate 16 14 Respiratory Effort Respiratory Depth Respiratory Pattern Blood Pressure 137/88 H 126/85 H Blood Pressure [Lying] 125/83 H Blood Pressure [Sitting (for 1 minute prior to obtaining)] 136/90 H Blood Pressure [Standing (for 1 minute prior to obtaining)] 126/85 H Blood Pressure Mean 104 98 Blood Pressure Mean [Lying] 97 Blood Pressure Mean [Sitting (for 1 minute prior to obtaining)] 105 Blood Pressure Mean [Standing (for 1 minute prior to obtaining)] 98 Pulse Ox 98 99 Oxygen Delivery Method Room Air Room Air MDM MDM MDM Narrative Medical decision making narrative: Differential diagnosis includes but not limited to symptomatic bradycardia versus dehydration versus other electrolyte imbalance versus infectious process. I did consider orthostatics, however patient has low blood pressure of 95/70 initially. He will be bolused normal saline. Comprehensive workup was pursued. EKG was (more content not included)... Normal [facility] Eosinophil percentageOrdered By: Jasper Bernstein on 08-03-2024 Eosinophils/100 WBC (Bld) 0.7 % 0-5 [facility] Eosinophil percentageOrdered By: Maxim Guzman on 08-03-2024 Eosinophils/100 WBC (Bld) 0.9 % Normal 0-5 [facility] Comment on above: Performed By: #### L [id number] #### [facility] [address] [place], [place], [id number] Erythrocyte distribution wid th ratioOrdered By: Jasper Bernstein on 08-03-2024 Erythrocyte distribution width (RBC) [Ratio] 18.5 % High 11.6-14.6 [facility] Erythrocyte distribution wid th ratioOrdered By: Maxim Guzman on 08-03-2024 Erythrocyte distribution width (RBC) [Ratio] 18.5 % High 11.6-14.6 [facility] Comment on above: Performed By: #### L [id number] #### [facility] [address] [place], [address] Erythrocyte distribution wid th standard deviationOrdered By: Jasper Bernstein on 08-03-2024 Erythrocyte distribution width (RBC) [Ratio] 61.8 fl High 35.1-43.9 [facility] Glomerular filtration rate ( GFR) estimation/1.73 sq m using serum, plasma, or whole bOrdered By: Jasper Bernstein on 08-03-2024 GFR/1.73 sq M.predicted among non-blacks MDRD (S/P/Bld) [Vol rate/Area] 65 mL/min/{1.73_m2} >60 [facility] Comment on above: mL/min/1.73m2 CKD-EP I Creatinine Equation (2020) Glomerular filtration rate ( GFR) estimation/1.73 sq m using serum, plasma, or whole bOrdered By: Maxim Guzman on 08-03-2024 GFR/1.73 sq M.predicted among non-blacks MDRD (S/P/Bld) [Vol rate/Area] 52 mL/min/{1.73_m2} Low >60 [facility] Comment on above: mL/min/1.73m2 CKD-EP I Creatinine Equation (2020) Result Comment: mL/m in/1.73m2 CKD-EPI Creatinine Equation (2020) Performed By: #### L [id number] #### [facility] [address] [place], [address] H AND P Exam - [place] 08-03-2024 H&P Exam - Hospitalist [facility] Medical Records Department [address] [place] [address] H P Exam - Hospitalist 08/03/24 0132 MR#: [id number] Acct: [id number] Name: HUSAM BARROW Rep #: [id number] : 1950 74 From: Jasper Morrison DO PCP: Dr. Brien Singer MD Status:ADM OPAL Location: [place] [address] HPI - General General Date of Admission: 08/03/24 Date of Service: 08/03/24 Chief Complaint: Syncope. HPI Narrative HUSAM BARROW, is a 74 [place] Male with a past medical history of essential hypertension; on losartan, carvedilol and diltiazem, hyperlipidemia; on atorvastatin, CAD, history of thrombocytosis; recently started on hydroxyurea followed by Dr. Edwards, history of COVID-19, depression; on bupropion, GERD; on omeprazole and OA who presents to [facility] ER complaining of syncopal event. Mr. Barrow reports his symptoms began on the morning of August 02, 2024 after he woke up not feeling well around 10 AM but he was able to push through his day until this evening when he went to the bathroom and had a syncopal episode where he apparently passed out on his bathroom floor for less than 2 minutes. He states he had been feeling generally weak weak and tired throughout the day. He also admits to associated nausea and vomiting with bilious emesis and severe fatigue and malaise which seems to have begun after recently starting hydroxyurea 2 days ago. He denies similar side effects of bradycardia, fatigue or malaise previously. There was no report of associated fever, chills, visual changes, runny nose, sore throat, ear pain, chest pain, palpitations, heart racing, headache, dysuria, hematuria or rash. In the ER he was noted to have Severe Symptomatic Bradycardia of 44 bpm noted shortly after admission suspected to be due to Adverse Drug Reaction to AV-keyon blocking agents with recently started hydroxyurea but otherwise unremarkable laboratory studies and imaging with CT scan of the head that revealed no acute intracranial abnormality and CXR that revealed no evidence for acute abnormality. He was then admitted to the PCU under observation status for ongoing care for stay that is expected to be less than 2 midnights. [facility] Medical History High platelet count CAD (coronary artery disease) Hypertension Angina of effort Home Medications ???Medication ???Instructions ???Recorded ???Last Taken ???Type acetaminophen 325 mg tablet 650 mg (2 x 325 mg) PO Q6H PRN PRN 11/28/19 Unknown Rx Pain Score 1-10/Temp > 100.7 F diltiazem HCl 180 mg 1 cap PO DAILY Check with primary 11/28/19 11/27/19 08:00 History capsule,extended release 24 hr doctor aspirin 81 mg tablet,delayed 81 mg PO DAILY 06/24/22 Unknown Hi story release Held on 08/03/24. Instructions: MD Ordered atorvastatin 40 mg tablet 20 mg PO DAILY 06/24/22 Unknown Hi story bupropion HCl 300 mg 24 hr tablet, 300 mg PO DAILY 06/24/22 Unknown History extended release carvedilol 3.125 mg tablet 12.5 mg PO DAILY 06/24/22 Unknown History folic acid 1 mg tablet 1 mg PO DAILY 06/24/22 Unknown His tory losartan 50 mg tablet 25 mg PO DAILY 06/24/22 Unknown Hi story hydroxyurea 500 mg capsule 500 mg PO DAILY 08/03/24 Unknown H istory Allergy/AdvReac Type Severity Reaction Status Date / Time No Known Allergies Allergy Verified 08/02/24 23:38 Social History Smoking Status: Never smoker ROS ROS Narrative Review of systems: Constitutional: Patient with generalized weakness but he denies fever or chills. Eyes: Patient denies change in vision or discharge from eyes. ENT: Patient denies runny nose, sore throat or ear pain. Resp: Patient denies shortness of breath or cough. CV: Patient admits to syncopal episode but he denies chest pain, palpitations, heart racing or lower extremity edema. GI: Patient admits to nausea and vomiting with bilious emesis but he denies abdominal pain, diarrhea or constipation as per HPI. : Patient denies dysuria, hematuria or urinary frequency. MSK: Patient admits to generalized weakness but he denies arthralgias or myalgias. Skin: Patient denies rash, abscess, wounds or jaundice. Psych: Patient denies symptoms of uncontrolled depression or anxiety. Neuro: Patient denies headache, paresthesias or focal neurologic deficits. Allergy: Patient denies lip swelling, tongue swelling or urticaria. Hematology: Patient denies easy bleeding or easy bruisability. Endocrinology: Patient denies polyuria, polydipsia, polyphagia or heat/cold intolerance. 14 point ROS otherwise negative except for positives noted above in HPI. Vital Signs Vital Signs Vital Signs: 08/02/24 23:32 08/02/24 23:41 08/02/24 23:41 Temperature 97.7 F L Temperature (more content not included)... Normal [facility] Hematocrit Auto (Bld) [Volum e fraction]Ordered By: Jasper Bernstein on 08-03-2024 Hematocrit (Bld) [Volume fraction] 34.1 % Low 40-54 [facility] Hemoglobin measurementOrdere d By: Jasper Bernstein on 08-03-2024 Hemoglobin (Bld) [Mass/Vol] 11.8 g/dL Low 13.0-16.5 [facility] Hemoglobin measurementOrdere d By: Maxim Guzman on 08-03-2024 Hemoglobin (Bld) [Mass/Vol] 12.5 g/dL Low 13.0-16.5 [facility] Comment on above: Performed By: #### L 501.9967 #### [facility] [address] [place] [address]. [place], [address] Hyaline casts LM.LPF (Urine sed) [#/Area]Ordered By: Maxim Guzman on 08-03-2024 Hyaline casts (Urine sed) [#/Area] 0 /[LPF] 0-5 [facility] Immature granulocytes/100 WB C Auto (Bld)Ordered By: Jasper Bernstein on 08-03-2024 Immature granulocytes/100 WBC (Bld) 0.500 % 0.0-0.9 [facility] Comment on above: IG% - Immature Granu locytes (promyelocytes, myelocytes and metamyelocytes) > 1% indicates that a LEFT SHIFT is Present. Ketones Test strip Ql (U)Ord ered By: Maxim Guzman on 08-03-2024 Ketones Ql (U) Negative Negative [facility] L499.0042on 08-03-2024 Trop T High Sen 33 ng/L High <=22 [facility] Comment on above: Performed By: #### L 499.0042 #### [facility] [address] [place], [address] L499.0043on 08-03-2024 Trop T High Sen 34 ng/L High <=22 [facility] Comment on above: Performed By: #### L 499.0042 #### [facility] [address] [place], [address] L501.4021on 08-03-2024 Trop T High Sen 36 ng/L High <=22 [facility] Comment on above: Performed By: #### L [id number] #### [facility] [address] [place], [address] Laboratory - Chemistry and C hemistry - challengeOrdered By: Jasper Bernstein on 08-03-2024 AST [Catalytic activity/Vol] 39 U/L High <38 [facility] MCV (mean corpuscular volume ) determinationOrdered By: Jasper Bernstein on 08-03-2024 MCV (RBC) [Entitic vol] 95.5 fL High 80-94 [facility] MCV (mean corpuscular volume ) determinationOrdered By: Maxim Guzman on 08-03-2024 MCV (RBC) [Entitic vol] 95.6 fL High 80-94 [facility] Comment on above: Performed By: #### L 501.9985 #### [facility] [address] [place], [address] Magnesiumon 08-03-2024 Magnesium [Mass/Vol] 2.1 mg/dL Normal 1.5-2.2 [facility] Comment on above: Performed By: #### L 501.9985 #### [facility] [address] [place], [address] Mean corpuscular hemoglobin (MCH) determinationOrdered By: Jasper Bernstein on 08-03-2024 MCH (RBC) [Entitic mass] 33.1 pg High 27.0-32.0 [facility] Mean corpuscular hemoglobin (MCH) determinationOrdered By: Maxim Guzman on 08-03-2024 MCH (RBC) [Entitic mass] 32.6 pg High 27.0-32.0 [facility] Comment on above: Performed By: #### L 501.9985 #### [facility] [address] [place], [address] Mean corpuscular hemoglobin concentration (MCHC) determinationOrdered By: Jasper Bernstein on 08-03-2024 MCHC (RBC) [Mass/Vol] 34.6 g/dL 32-36 [facility] Mean corpuscular hemoglobin concentration (MCHC) determinationOrdered By: Maxim Guzman on 08-03-2024 MCHC (RBC) [Mass/Vol] 34.2 g/dL Normal -36 [facility] Comment on above: Performed By: #### L 501.9985 #### [facility] [address] [place], [address] Mean platelet volume determi nationOrdered By: Jasper Bernstein on 08-03-2024 Platelet mean volume (Bld) [Entitic vol] 10.3 fL 6.2-12.0 [facility] Mean platelet volume determi nationOrdered By: Maxim Guzman on 08-03-2024 Platelet mean volume (Bld) [Entitic vol] 10.6 fL Normal 6.2-12.0 [facility] Comment on above: Performed By: #### L 501.9985 #### [facility] [address] [place], [address] Microscopic analysis of urin e for red blood cells (RBC)Ordered By: Maxim Guzman on 08-03-2024 Microscopic analysis of urine for red blood cells (RBC) 0-5 SEEN /hpf 0-5 [facility] Monocyte percentageOrdered B y: Jasper Bernstein on 08-03-2024 Monocytes/100 WBC (Bld) 14.8 % High 0-10 [facility] Monocyte percentageOrdered B y: Maxim Guzman on 08-03-2024 Monocytes/100 WBC (Bld) 18.5 % High 0-10 [facility] Comment on above: Performed By: #### L 501.9985 #### [facility] [address] [place] [place], [address] Mucus LM Ql (Urine sed)Order ed By: Maxim Guzman on 08-03-2024 Mucus Ql (Urine sed) 0 SEEN /hpf [facility] Neutrophil percentageOrdered By: Jasper Bernstein on 08-03-2024 Neutrophils/100 WBC (Bld) 64.0 % 47-70 [facility] Neutrophil percentageOrdered By: Maxim Guzman on 08-03-2024 Neutrophils/100 WBC (Bld) 57.8 % Normal 47-70 [facility] Comment on above: Performed By: #### L 501.9985 #### [facility] [address] [place] [place], [address] Nitrite Test strip Ql (U)Ord ered By: Maxim Guzman on 08-03-2024 Nitrite Ql (U) Negative Negative [facility] Nucleated red blood cell per centageOrdered By: Jasper Bernstein on 08-03-2024 Nucleated RBC/100 WBC (Bld) [Ratio] 0 % 0-5 [facility] Phosphoruson 08-03-2024 Phosphate [Mass/Vol] 3.4 mg/dL Normal 2.7-4.5 [facility] Comment on above: Performed By: #### L 499.0042 #### [facility] [address] [place] [place], [address] Platelet countOrdered By: Víctor Bernstein on 08-03-2024 Platelets (Bld) [#/Vol] 172 10*3/uL 150-450 [facility] Platelet countOrdered By: Anderson Guzman on 08-03-2024 Platelets (Bld) [#/Vol] 187 10*3/uL Normal 150-450 [facility] Comment on above: Performed By: #### L [id number] #### [facility] [address] [place], [address] Potassium measurement (mass/ volume)Ordered By: Jasper Bernstein on 08-03-2024 Potassium (Unsp spec) [Mass/Vol] 3.2 mmol/L Low 3.3-5.1 [facility] Protein Test strip Ql (U)Ord ered By: Maxim Guzman on 08-03-2024 Protein Ql (U) 15 mg/dl High Negative [facility] RBC Auto (Bld) [#/Vol]Ordere d By: Jasper Bernstein on 08-03-2024 RBC (Bld) [#/Vol] 3.57 10*6/uL Low 4.6-6.2 [facility] Serum creatinine measurement (mass/volume)Ordered By: Jasper Bernstein on 08-03-2024 Creatinine [Mass/Vol] 1.17 mg/dL 0.70-1.20 [facility] Serum creatinine measurement (mass/volume)Ordered By: Maxim Guzman on 08-03-2024 Creatinine [Mass/Vol] 1.40 mg/dL High 0.70-1.20 [facility] Comment on above: Performed By: #### L 501.9985 #### [facility] [address] [place], [place], [id number] Serum globulin measurementOr dered By: Jasper Bernstein on 08-03-2024 Globulin (S) [Mass/Vol] 2.3 g/dL 2.2-4.2 [facility] Serum globulin measurementOr dered By: Maxim Guzman on 08-03-2024 Globulin (S) [Mass/Vol] 2.8 g/dL Normal 2.2-4.2 [facility] Comment on above: Performed By: #### L 501.9985 #### [facility] [address] [place], [address] Serum glucose measurement (m ass/volume)Ordered By: Jasper Bernstein on 08-03-2024 Glucose [Mass/Vol] 112 mg/dL High 70-99 [facility] Serum glucose measurement (m ass/volume)Ordered By: Maxim Guzman on 08-03-2024 Glucose [Mass/Vol] 108 mg/dL High 70-99 [facility] Comment on above: Performed By: #### L 501.9985 #### [facility] [address] [facility] [place], [address] Serum or plasma alanine briggs otransferase (ALT) measurementOrdered By: Jasper Bernstein on 08-03-2024 ALT [Catalytic activity/Vol] 22 U/L <47 [facility] Serum or plasma alanine briggs otransferase (ALT) measurementOrdered By: Maxim Guzman on 08-03-2024 ALT [Catalytic activity/Vol] 24 U/L Normal <=46 [facility] Comment on above: Performed By: #### L [id number] #### [facility] [address] [place], [address] Serum or plasma albumin tracy urement (mass/volume)Ordered By: Jasper Bernstein on 08-03-2024 Albumin [Mass/Vol] 3.7 g/dL 3.4-4.8 [facility] Serum or plasma albumin rtacy urement (mass/volume)Ordered By: Maxim Guzman on 08-03-2024 Albumin [Mass/Vol] 3.8 g/dL Normal 3.4-4.8 [facility] Comment on above: Performed By: #### L 501.9985 #### [facility] [address] [place], [address] Serum or plasma albumin/glob ulin mass ratioOrdered By: Jasper Bernstein on 08-03-2024 Albumin/Globulin [Mass ratio] 1.6 {ratio} 0.9-2.4 [facility] Serum or plasma albumin/glob ulin mass ratioOrdered By: Maxim Guzman on 08-03-2024 Albumin/Globulin [Mass ratio] 1.4 {ratio} Normal 0.9-2.4 [facility] Comment on above: Performed By: #### L [id number] #### [facility] [address] [place], [place], [id number] Serum or plasma alkaline abdon sphatase measurementOrdered By: Jasper Bernstein on 08-03-2024 ALP [Catalytic activity/Vol] 99 U/L 40-129 [facility] Serum or plasma calcium trcay urement (mass/volume)Ordered By: Jasper Bernstein on 08-03-2024 Calcium [Mass/Vol] 8.9 mg/dL 7.6-11.0 [facility] Serum or plasma calcium tracy urement (mass/volume)Ordered By: Maxim Guzman on 08-03-2024 Calcium [Mass/Vol] 9.2 mg/dL Normal 7.6-11.0 [facility] Comment on above: Performed By: #### L [id number] #### [facility] [address] [place], [place], [id number] Serum or plasma urea nitroge n measurement (mass/volume)Ordered By: Jasper Bernstein on 08-03-2024 Urea nitrogen [Mass/Vol] 16 mg/dL - [facility] Serum or plasma urea nitroge n measurement (mass/volume)Ordered By: Maxim Guzman on 08-03-2024 Urea nitrogen [Mass/Vol] 18 mg/dL Normal - [facility] Comment on above: Performed By: #### L [id number] #### [facility] [address] [place], [place], [id number] Sodium levelOrdered By: Elias Bernstein on 08-03-2024 Sodium [Moles/Vol] 140 mmol/L 133-145 [facility] Sodium levelOrdered By: Maxim Guzman on 08-03-2024 Sodium [Moles/Vol] 139 mmol/L Normal 133-145 [facility] Comment on above: Performed By: #### L 501.9985 #### [facility] [address] [place] [place], [address] Squamous epithelial cells de tection in urine sediment by light microscopyOrdered By: Maxim Guzman on 08-03-2024 Epithelial cells.squamous LM Ql (Urine sed) 0-5 SEEN /hpf 0-5 [facility] TSH DL <= 0.005 mIU/L QnOrde red By: Jasper Bernstein on 08-03-2024 TSH Qn 1.170 uIU/mL 0.300-4.200 [facility] Thyroid Stim Hormone (TSH)on 08-03-2024 TSH 1.170 uIU/mL Normal 0.300-4.200 [facility] Comment on above: Performed By: #### L 499.0042 #### [facility] [address] [place], [address] Total proteinOrdered By: Tuan Bernstein on 08-03-2024 Protein [Mass/Vol] 6.0 g/dL 5.9-8.4 [facility] Troponin T.cardiac [Mass/vol ume] in Serum or Plasma by High sensitivity methodOrdered By: Jasper Bernstein on 08-03-2024 Troponin T.cardiac High sensitivity method [Mass/Vol] 34 ng/L High <22 [facility] Troponin T.cardiac High sensitivity method [Mass/Vol] 33 ng/L High <22 [facility] Troponin T.cardiac High sensitivity method [Mass/Vol] 36 ng/L High <22 [facility] Urinalysis, Completeon 08-03 AMORPHOUS 1+ Normal [facility] Comment on above: Order Comment: CLEAN CATCH Performed By: #### L [id number] #### [facility] [address] [place], [address] BACTERIA 2+ /hpf Normal None Seen [facility] Comment on above: Order Comment: CLEAN CATCH Performed By: #### L [id number] #### [facility] [address] [place], [address] CAST,HYALINE 0-5 SEEN Normal 0-5 [facility] Comment on above: Order Comment: CLEAN CATCH Performed By: #### L [id number] #### [facility] [address] [place], [address] EPI,SQUAMOUS 0-5 SEEN Normal 0-5 [facility] Comment on above: Order Comment: CLEAN CATCH Performed By: #### L [id number] #### [facility] [address] [place], [address] RBC 0-5 SEEN Normal 0-5 [facility] Comment on above: Order Comment: CLEAN CATCH Performed By: #### L [id number] #### [facility] [address] [place], [address] WBC 0-5 SEEN Normal 0-5 [facility] Comment on above: Order Comment: CLEAN CATCH Performed By: #### L [id number] #### [facility] [address] [place], [address] Mucus Ql (Urine sed) 0 SEEN Normal [facility] Comment on above: Order Comment: CLEAN CATCH Performed By: #### L [id number] #### [facility] [address] [place], [address] Urine clarityOrdered By: Maite Guzman on 08-03-2024 Clarity (U) Clear Clear [facility] Urine color determinationOrd ered By: Maxim Guzman on 08-03-2024 Color (U) Yellow Yellow [facility] Urine cultureOrdered By: Maite Guzman on 08-03-2024 Bacteria identified Cx Nom (U) Presumptive E. coli Abnormal [facility] Bacteria identified Cx Nom (U) Positive Abnormal [facility] Urine glucose detectionOrder ed By: Maxim Guzman on 08-03-2024 Glucose Ql (U) Normal mg/dl Normal [facility] Urine leukocyte esterase det ection by dipstickOrdered By: Maxim Guzman on 08-03-2024 Leukocyte esterase Test strip Ql (U) Negative Negative [facility] Urine pHOrdered By: Maxim lee on 08-03-2024 pH (U) 6.0 [pH] 5.0 - 8.0 [facility] Urine sediment bacteria coun t by microscopy (number/high power field)Ordered By: Maxim Guzman on 08-03-2024 Bacteria LM.HPF (Urine sed) [#/Area] 2 /[HPF] None Seen [facility] Urine specific gravity measu rementOrdered By: Maxim Guzman on 08-03-2024 Specific gravity (U) [Rel density] 1.015 1.002-1.030 [facility] Urine urobilinogen measureme ntOrdered By: Maxim Guzman on 08-03-2024 Urobilinogen Ql (U) Normal mg/dl Normal [facility] White blood cell (WBC) count Ordered By: Jasper Bernstein on 08-03-2024 WBC (Bld) [#/Vol] 4.2 10*3/uL Low 4.4-11.0 [facility] White blood cell (WBC) count Ordered By: Maxim Guzman on 08-03-2024 WBC (Bld) [#/Vol] 4.3 10*3/uL Low 4.4-11.0 [facility] Comment on above: Performed By: #### L [id number] #### [facility] [address] [place] [address], [id number] White blood cell countOrdere d By: Maxim Guzman on 08-03-2024 White blood cell count 0-5 SEEN /hpf 0-5 [facility] Absolute lymphocyte countOrd ered By: Maxim Guzman on 08-02-2024 Lymphocytes Auto (Unsp spec) [#/Vol] 0.93 10*3/uL 0.83-4.51 [facility] Absolute neutrophil countOrd ered By: Maxim Guzman on 08-02-2024 Neutrophils (Bld) [#/Vol] 2.5 10*3/uL 2.0-7.7 [facility] Anion gap in Serum or Plasma Ordered By: Maxim Guzman on 08-02-2024 Anion gap [Moles/Vol] 13 mmol/L 06-26 [facility] Automated lymphocyte count a s percentage of total leukocytesOrdered By: Maxim Guzman on 08-02-2024 Lymphocytes/100 WBC Auto (Unsp spec) 21.7 % [facility] BUN/creatinine ratioOrdered By: Maxim Guzman on 08-02-2024 Urea nitrogen/Creatinine [Mass ratio] 12.5 mg/mg 12-01 [facility] Chest 1 View (Portable)on Chest 1 View (Portable) [facility] Imaging Services [address], [place] [address] Chest 1 View (Portable) MR#: [id number] Acct: [id number] Name: HUSAM BARROW Rep #: [id number] : [id number] M 74 From: Chelsey burr MD PCP: Dr. Brien Singer MD Status: PRE ER Study: Chest 1 View (Portable) Date of Exam: 08/02/24 Exam# [id number] Ordering Dr: Maxim Guzman MD PROCEDURE: CHEST 1 VIEW (PORTABLE) 08/03/2024 REASON FOR EXAM: SYNCOPE TECHNIQUE: Frontal view of the chest. COMPARISON: 11/27/2019. FINDINGS: The lungs are expanded. There is no demonstrated parenchymal abnormality. There is no demonstrated pleural abnormality. Enlarged cardiac silhouette. Normal mediastinum and zakia. Normal visualized pulmonary arteries. Atheromatous plaques of the visualized aortic arch and descending thoracic aorta. Diffuse spondylosis of the visualized thoracic spine. Normal visualized ribs, clavicles. Degenerative joint disease. There is no demonstrated abnormality of the visualized soft tissue structures of the upper abdomen. RAD/Chest 1 View (Portable) IMPRESSION: No evidence for acute abnormality. Reading Location: [place] [address] CC: Dr. Maxim Guzman MD; Dr. Brien Singer MD [place]: Signed Normal [facility] Erythrocyte distribution wid th standard deviationOrdered By: Maxim Guzman on 08-02-2024 Erythrocyte distribution width (RBC) [Ratio] 59.7 fl High 35.1-43.9 [facility] Immature granulocytes/100 WB C Auto (Bld)Ordered By: Maxim Guzman on 08-02-2024 Immature granulocytes/100 WBC (Bld) 0.200 % 0.0-0.9 [facility] Comment on above: IG% - Immature Granu locytes (promyelocytes, myelocytes and metamyelocytes) > 1% indicates that a LEFT SHIFT is Present. Magnesium measurement (mass/ volume)Ordered By: Jasper Bernstein on 08-02-2024 Magnesium (Unsp spec) [Mass/Vol] 2.1 mg/dL 1.5-2.2 [facility] Nucleated red blood cell per centageOrdered By: Maxim Guzman on 08-02-2024 Nucleated RBC/100 WBC (Bld) [Ratio] 0 % 0-5 [facility] Potassium measurement (mass/ volume)Ordered By: Maxim Guzman on 08-02-2024 Potassium (Unsp spec) [Mass/Vol] 3.4 mmol/L 3.3-5.1 [facility] Serum or plasma alkaline abdon sphatase measurementOrdered By: Maxim Guzman on 08-02-2024 ALP [Catalytic activity/Vol] 108 U/L 40-129 [facility] Total proteinOrdered By: Maite Guzman on 08-02-2024 Protein [Mass/Vol] 6.6 g/dL 5.9-8.4 [facility] CBC W Auto Differential pane l (Bld)on 07-22-2024 Basophils (Bld) [#/Vol] 0.06 10*3/uL Normal <0.11 [facility] Comment on above: Order Comment: Speci men Type: BLOOD SPECIMEN Ordering Facility: [facility] Address: [address] [place] [address] Performed By: #### 2 4323-8, 35145-0 #### [facility] CLIA [id number] [address] [place] [address] [place] [address] [place] Basophils/100 WBC (Bld) 1.4 % Normal C [facility] Comment on above: Order Comment: Speci men Type: BLOOD SPECIMEN Ordering Facility: [facility] Address: [address] [place] [address] Performed By: #### 2 4323-8, 40239-2 #### [facility] CLIA [id number] [address] [place] [address] [place] Differential cell count method Nom (Bld) Auto Normal [facility] Comment on above: Order Comment: Speci men Type: BLOOD SPECIMEN Ordering Facility: [facility] Address: [address] [place] [address] Performed By: #### 2 4323-8, 41431-7 #### [facility] CLIA [id number] [address] [place] [address] [place] Eosinophils (Bld) [#/Vol] 0.11 10*3/uL Normal <0.46 [facility] Comment on above: Order Comment: Speci men Type: BLOOD SPECIMEN Ordering Facility: [facility] Address: [address] [place] [address] Performed By: #### 2 4323-8, 64493-6 #### [facility] CLIA [id number] [address] [place] [address] [place] Eosinophils/100 WBC (Bld) 2.6 % Normal [facility] Comment on above: Order Comment: Speci men Type: BLOOD SPECIMEN Ordering Facility: [facility] Address: [address] [place] [address] Performed By: #### 2 4323-8, 07244-0 #### [facility] CLIA [id number] [address] [place] [address] [place] Erythrocyte distribution width (RBC) [Ratio] 17.2 % High 11.5-15.0 [facility] Comment on above: Order Comment: Speci men Type: BLOOD SPECIMEN Ordering Facility: [facility] Address: [address] [place] [address] Performed By: #### 2 4323-8, 20791-8 #### [facility] CLIA [id number] [address] [place] [address] [place] Hematocrit (Bld) [Volume fraction] 37.0 % Low 39.0-51.0 [facility] Comment on above: Order Comment: Speci men Type: BLOOD SPECIMEN Ordering Facility: [facility] Address: [address] [place] [address] Performed By: #### 2 4323-8, 07023-1 #### [facility] CLIA [id number] [address] [place] [address] [place] Hemoglobin (Bld) [Mass/Vol] 12.5 g/dL Low 13.0-17.0 [facility] Comment on above: Order Comment: Speci men Type: BLOOD SPECIMEN Ordering Facility: [facility] Address: [address] [place] [address] Performed By: #### 2 4323-8, 20206-0 #### [facility] CLIA [id number] [address] [place] [address] [place] Immature granulocytes (Bld) [#/Vol] 10*3/uL Normal <0.10 [facility] Comment on above: Order Comment: Speci men Type: BLOOD SPECIMEN Ordering Facility: [facility] Address: [address] [place] [address] Performed By: #### 2 4323-8, 74620-8 #### [facility] CLIA [id number] [address] [place] [address] [place] Immature granulocytes/100 WBC (Bld) 0.2 % Normal [facility] Comment on above: Order Comment: Speci men Type: BLOOD SPECIMEN Ordering Facility: [facility] Address: [address] [place] [address] Performed By: #### 2 4323-8, 61601-7 #### [facility] CLIA [id number] [address] [place] [address] [place] Lymphocytes (Bld) [#/Vol] 1.23 10*3/uL Normal 1.00-4.00 [facility] Comment on above: Order Comment: Speci men Type: BLOOD SPECIMEN Ordering Facility: [facility] Address: [address] [place] [address] Performed By: #### 2 4323-8, 78096-0 #### [facility] CLIA [id number] [address] [place] [address] [place] Lymphocytes/100 WBC (Bld) 29.1 % Normal [facility] Comment on above: Order Comment: Speci men Type: BLOOD SPECIMEN Ordering Facility: [facility] Address: [address] [place] [address] Performed By: #### 2 4323-8, 28822-1 #### [facility] CLIA [id number] [address] [place] [address] [place] MCH (RBC) [Entitic mass] 32.0 pg Normal 26.0-34.0 [facility] Comment on above: Order Comment: Speci men Type: BLOOD SPECIMEN Ordering Facility: [facility] Address: [address] [place] [address] Performed By: #### 2 4323-8, 19194-4 #### [facility] CLIA [id number] [address] [place] [address] [place] MCHC (RBC) [Mass/Vol] 33.8 g/dL Normal 30.5-36.0 [facility] Comment on above: Order Comment: Speci men Type: BLOOD SPECIMEN Ordering Facility: [facility] Address: [address] [place] [address] Performed By: #### 2 4323-8, 93166-9 #### [facility] CLIA [id number] [address] [place] [address] [place] MCV (RBC) [Entitic vol] 94.6 fL Normal 80.0-100.0 [facility] Comment on above: Order Comment: Speci men Type: BLOOD SPECIMEN Ordering Facility: [facility] Address: [address] [place] [address] Performed By: #### 2 4323-8, 88702-7 #### [facility] CLIA [id number] [address] [place] [id number] [place] Monocytes (Bld) [#/Vol] 0.38 10*3/uL Normal <0.87 [facility] Comment on above: Order Comment: Speci men Type: BLOOD SPECIMEN Ordering Facility: [facility] Address: [address] [place] [address] Performed By: #### 2 4323-8, 60735-0 #### [facility] CLIA [id number] [address] [place] [address] [place] Monocytes/100 WBC (Bld) 9.0 % Normal [facility] Comment on above: Order Comment: Speci men Type: BLOOD SPECIMEN Ordering Facility: [facility] Address: [address] [place] [address] Performed By: #### 2 4323-8, 96456-4 #### [facility] CLIA [id number] [address] [place] [address] [place] Neutrophils (Bld) [#/Vol] 2.43 10*3/uL Normal 1.45-7.50 [facility] Comment on above: Order Comment: Speci men Type: BLOOD SPECIMEN Ordering Facility: [facility] Address: [address] [place] [id number] Performed By: #### 2 4323-8, 12245-8 #### [facility] CLIA [id number] [address] [place] [address] [place] Neutrophils/100 WBC (Bld) 57.7 % Normal [facility] Comment on above: Order Comment: Speci men Type: BLOOD SPECIMEN Ordering Facility: [facility] Address: [address] [place] [address] Performed By: #### 2 4323-8, 25111-3 #### [facility] CLIA [id number] [address] [place] [address] [place] Nucleated RBC (Bld) [#/Vol] 10*3/uL Normal <0.01 [facility] Comment on above: Order Comment: Speci men Type: BLOOD SPECIMEN Ordering Facility: [facility] Address: [address] [place] [address] Performed By: #### 2 4323-8, 88638-6 #### [facility] CLIA [id number] [address] [place] [address] [place] Nucleated RBC/100 WBC (Bld) [Ratio] 0.0 /100 WBC Normal [facility] Comment on above: Order Comment: Speci men Type: BLOOD SPECIMEN Ordering Facility: [facility] Address: [address] [place] [address] Performed By: #### 2 4323-8, 94227-0 #### [facility] CLIA [id number] [address] [place] [address] [place] Platelet mean volume (Bld) [Entitic vol] 9.3 fL Normal 9.0-12.7 [facility] Comment on above: Order Comment: Speci men Type: BLOOD SPECIMEN Ordering Facility: [facility] Address: [address] [place] [address] Performed By: #### 2 4323-8, 17430-5 #### [facility] CLIA [id number] [address] [place] [address] [place] Platelets (Bld) [#/Vol] 465 10*3/uL High 150-400 [facility] Comment on above: Order Comment: Speci men Type: BLOOD SPECIMEN Ordering Facility: [facility] Address: [address] [place] [address] Performed By: #### 2 4323-8, 42592-1 #### [facility] CLIA [id number] [address] [place] [address] [place] RBC (Bld) [#/Vol] 3.91 10*6/uL Low 4.20-6.00 [facility] Comment on above: Order Comment: Luis zafar Type: BLOOD SPECIMEN Ordering Facility: [facility] Address: [address] [place] [address] Performed By: #### 2 4323-8, 84162-3 #### [facility] CLIA [id number] [address] [place] [address] [place] WBC (Bld) [#/Vol] 4.22 10*3/uL Normal 3.70-11.00 [facility] Comment on above: Order Comment: Luis zafar Type: BLOOD SPECIMEN Ordering Facility: [facility] Address: [address] [place] [address] Performed By: #### 2 4323-8, 52186-0 #### [facility] CLIA [id number] [address] [place] [address] [place] Matthieu 07-22-2024 [facility] Telephone (HEMEDIS) HUSAM BARROW ([id number]) 1950 M Date Time Provider Department 07/22/24 ALVERTO EDWARDS During your visit today, we recorded the following information about you: Alverto Edwards, 07/22/2024 8:22 AM Signed Can let him know blood counts continue to improve. Continue Hydrea 2 capsules daily and recheck CBC in 2 weeks. Xena Mao LPN 07/22/2024 8:49 AM Signed Patient notified and voices understanding. States he will need refill. Pended. Has standing CBC, will walk in on 08/05/24. GARIMA Lerma Paul A, DO 07/22/2024 9:18 AM Signed The following approved medication requests have been transmitted electronically. Requested Prescriptions Signed Prescriptions Disp Refills hydroxyurea (HYDREA) 500 mg capsule 60 capsule 2 Sig: Take 2 capsules by mouth once daily. Authorizing Provider: ALVERTO EDWARDS DO Allergies As of Date: 07/22/2024 Noted Allergy Reaction TOPROL XL (METOPROLOL) 05/30/2021 14 - Other: See Comments Comments: General illness, felt lousy, GI upset [facility] 01/18/2009 Date Reviewed: 07/08/2024 Reviewed by: Adela Romero Ma, MA - Fully Assessed Reason for Visit: Results [95] Visit Diagnosis:Essential thrombocytosis (HCC) [D47.3] Order(s):hydroxyurea (HYDREA) 500 mg capsuleTake 2 capsules by mouth once daily.Disp: 60 capsuleRfl: 2 Prescriptions as of 07/22/2024 - hydroxyurea (HYDREA) 500 mg capsule Take 2 capsules by mouth once daily. - buPROPion XL (WELLBUTRIN XL) 300 mg 24 hr tablet Take 1 tablet by mouth once daily. - folic acid 1 mg tablet Take 2 tablets by mouth once daily. - carvedilol (COREG) 3.125 mg tablet Take 3.125 mg by mouth twice daily. - losartan (COZAAR) 25 mg tablet Take 1 tablet by mouth once daily. Meds Comments as of 09/03/2018: Uses Xiomara [facility]aya. Problem List As Of Date 07/22/2024 Noted Resolved Other closed fractures of distal end of radius *09/07/2004 09/03/2018 PAIN IN LIMB [M79.609] 09/28/2004 Pure hypercholesterolemia [E78.00] 12/01/2016 Asthma [J45.909] 11/30/2014 Unspecified Essential Hypertension [I10] 02/19/2009 Mixed hyperlipidemia [E78.2] Hypertension [I10] 02/02/2010 11/20/2019 Coronary artery spasm [I20.1] 05/16/2012 Mild intermittent asthma without complication [*11/30/2014 Overweight (BMI 25.0-29.9) [E66.3] Chewing tobacco use [Z72.0] Nonischemic cardiomyopathy (HCC) [I42.8] 05/30/2021 Anxiety with depression [F41.8] 06/01/2022 Blood in stool [K92.1] 07/06/2022 Dark stools [R19.5] 07/06/2022 Stage 3a chronic kidney disease (HCC) [N18.31] 06/03/2024 Aortic stenosis [I35.0] Prescriptions ordered this encounter Disp Refills Start End HYDROXYUREA 500 MG CAPSULE 60 c* 2 07/22/2024 Route: PO Sig: Take 2 capsules by mouth once daily. Medications Discontinued During This Encounter Prescriptions - hydroxyurea (HYDREA) 500 mg capsule (Discontinued) Take 2 capsules by mouth once daily. Encounter Status:Closed by XENA MAO on 07/22/24 Normal [facility] CBC W Auto Differential pane l (Bld)on 07-15-2024 Basophils (Bld) [#/Vol] 0.07 10*3/uL Normal <0.11 [facility] Comment on above: Order Comment: Speci men Type: BLOOD SPECIMENOrdering Facility: [facility] Address: [address] [place] [address] Performed By: #### 5 7021-8 ####[facility] [id number] [place] [address] [place] Basophils/100 WBC (Bld) 1.0 % Normal [facility] Comment on above: Order Comment: Speci men Type: BLOOD SPECIMENOrdering Facility: [facility] Address: [address] [place] [address] Performed By: #### 5 7021-8 ####[facility] [id number] [place] [address] [place] Differential cell count method Nom (Bld) Auto Normal [facility] Comment on above: Order Comment: Speci men Type: BLOOD SPECIMENOrdering Facility: [facility] Address: [address] [place] [address] Performed By: #### 5 7021-8 ####[facility] [id number] [place] [address] [place] Eosinophils (Bld) [#/Vol] 0.37 10*3/uL Normal <0.46 [facility] Comment on above: Order Comment: Speci men Type: BLOOD SPECIMENOrdering Facility: [facility] Address: [address] [place] [address] Performed By: #### 5 7021-8 ####[facility] [id number] [place] [address] [place] Eosinophils/100 WBC (Bld) 5.3 % Normal [facility] Comment on above: Order Comment: Speci men Type: BLOOD SPECIMENOrdering Facility: [facility] Address: [address] [place] [address] Performed By: #### 5 7021-8 ####[facility] [id number] [place] [address] [place] Erythrocyte distribution width (RBC) [Ratio] 15.9 % High 11.5-15.0 [facility] Comment on above: Order Comment: Speci men Type: BLOOD SPECIMENOrdering Facility: [facility] Address: [address] [place] [address] Performed By: #### 5 7021-8 ####[facility] [id number] [place] [address] [place] Hematocrit (Bld) [Volume fraction] 36.7 % Low 39.0-51.0 [facility] Comment on above: Order Comment: Speci men Type: BLOOD SPECIMENOrdering Facility: [facility] Address: [address] [place] [address] Performed By: #### 5 7021-8 ####[facility] [id number] [place] [address] [place] Hemoglobin (Bld) [Mass/Vol] 12.5 g/dL Low 13.0-17.0 [facility] Comment on above: Order Comment: Speci men Type: BLOOD SPECIMENOrdering Facility: [facility] Address: [address] [place] [address] Performed By: #### 5 7021-8 ####[facility] [id number] [place] [address] [place] Immature granulocytes (Bld) [#/Vol] 10*3/uL Normal <0.10 [facility] Comment on above: Order Comment: Speci men Type: BLOOD SPECIMENOrdering Facility: [facility] Address: [address] [place] [address] Performed By: #### 5 7021-8 ####[facility] [id number] [place] [address] [place] Immature granulocytes/100 WBC (Bld) 0.1 % Normal [facility] Comment on above: Order Comment: Speci men Type: BLOOD SPECIMENOrdering Facility: [facility] Address: [address] [place] [address] Performed By: #### 5 7021-8 ####[facility] [id number] [place] [address] [place] Lymphocytes (Bld) [#/Vol] 1.31 10*3/uL Normal 1.00-4.00 [facility] Comment on above: Order Comment: Speci men Type: BLOOD SPECIMENOrdering Facility: [facility] Address: [address] [place] [address] Performed By: #### 5 7021-8 ####[facility]ITAL[facility]CL[facility] [id number] [place] [address] [place] Lymphocytes/100 WBC (Bld) 18.6 % Normal [facility] Comment on above: Order Comment: Speci men Type: BLOOD SPECIMENOrdering Facility: [facility] Address: [address] [place] [address] Performed By: #### 5 7021-8 ####[facility] [id number] [place] [address] [place] MCH (RBC) [Entitic mass] 31.7 pg Normal 26.0-34.0 [facility] Comment on above: Order Comment: Speci men Type: BLOOD SPECIMENOrdering Facility: [facility] Address: [address] [place] [address] Performed By: #### 5 7021-8 ####[facility]OSPITALNCLucero [id number] [place] [address] [place] MCHC (RBC) [Mass/Vol] 34.1 g/dL Normal 30.5-36.0 [facility] Comment on above: Order Comment: Speci men Type: BLOOD SPECIMENOrdering Facility: [facility] Address: [address] [place] [address] Performed By: #### 5 7021-8 ####[facility] [id number] [place] [address] [place] MCV (RBC) [Entitic vol] 93.1 fL Normal 80.0-100.0 C [facility] Comment on above: Order Comment: Speci men Type: BLOOD SPECIMENOrdering Facility: [facility] Address: [address] [place] [address] Performed By: #### 5 7021-8 ####[facility] HOSPITALNCA [id number] [place] [address] [place] Monocytes (Bld) [#/Vol] 0.47 10*3/uL Normal <0.87 [facility] Comment on above: Order Comment: Speci men Type: BLOOD SPECIMENOrdering Facility: [facility] Address: [address] [place], [place] [address] Performed By: #### 5 7021-8 ####[facility] MILLWNCLIA [id number] [place] [address] [place] Monocytes/100 WBC (Bld) 6.7 % Normal [facility] Comment on above: Order Comment: Speci men Type: BLOOD SPECIMENOrdering Facility: [facility] Address: [address] [place] [address] Performed By: #### 5 7021-8 ####[facility] HOSPITALDESTINYLIA [id number] [place] [address] [place] Neutrophils (Bld) [#/Vol] 4.81 10*3/uL Normal 1.45-7.50 [facility] Comment on above: Order Comment: Speci men Type: BLOOD SPECIMENOrdering Facility: [facility] Address: [address] [place] [address] Performed By: #### 5 7021-8 ####[facility] [id number] [place] [address] [place] Neutrophils/100 WBC (Bld) 68.3 % Normal [facility] Comment on above: Order Comment: Speci men Type: BLOOD SPECIMENOrdering Facility: [facility] Address: [address] [place] [address] Performed By: #### 5 7021-8 ####[facility] [id number] [place] [address] [place] Nucleated RBC (Bld) [#/Vol] 10*3/uL Normal <0.01 [facility] Comment on above: Order Comment: Speci men Type: BLOOD SPECIMENOrdering Facility: [facility] Address: [address] [place] [address] Performed By: #### 5 7021-8 ####[facility]ITALNCLIA [id number] [place] [id number] [place] Nucleated RBC/100 WBC (Bld) [Ratio] 0.0 /100 WBC Normal [facility] Comment on above: Order Comment: Speci men Type: BLOOD SPECIMENOrdering Facility: [facility] Address: [address] [place] [address] Performed By: #### 5 7021-8 ####[facility] HOSPITALNCLILIANA [id number] [place] [address] [place] Platelet mean volume (Bld) [Entitic vol] 9.5 fL Normal 9.0-12.7 [facility] Comment on above: Order Comment: Speci men Type: BLOOD SPECIMENOrdering Facility: [facility] Address: [address] [place] [address] Performed By: #### 5 7021-8 ####[facility] [id number] [place] [address] [place] Platelets (Bld) [#/Vol] 938 10*3/uL High 150-400 [facility] Comment on above: Order Comment: Speci men Type: BLOOD SPECIMENOrdering Facility: [facility] Address: [address] [place] [address] Performed By: #### 5 7021-8 ####[facility]ITALNCLIA [id number] [place] [address] [place] RBC (Bld) [#/Vol] 3.94 10*6/uL Low 4.20-6.00 [facility] Comment on above: Order Comment: Speci men Type: BLOOD SPECIMENOrdering Facility: [facility] Address: [address] [place] [address] Performed By: #### 5 7021-8 ####[facility]ITALNCLIA [id number] [place] [address] [place] WBC (Bld) [#/Vol] 7.04 10*3/uL Normal 3.70-11.00 [facility] Comment on above: Order Comment: Speci men Type: BLOOD SPECIMENOrdering Facility: [facility] Address: [address] [place] [address] Performed By: #### 5 7021-8 ####[facility] [id number] [address] [place] CNPNon 07-15-2024 CNPN Telephone (HEMAWS) HUSAM BARROW ([id number]) 1950 M Date Time Provider Department 07/15/24 ALVERTO EDWARDS HEMAWS During your visit today, we recorded the following information about you: Alverto Edwards DO 07/15/2024 8:24 AM Signed Can let him know blood counts are improving. Continue Hydrea 2 capsules daily and recheck CBC in a week. Xena Mao LPN 07/15/2024 8:27 AM Signed Left VM regarding lab and hydrea. Please assist pt with one week lab apt. GARIMA Lerma Melissa 07/15/2024 8:31 AM Signed Patient informed Lab scheduled for next week Patient states needs new prescription for Hydrea due to taking more. Please send to [facility] [place] Alverto Edwards DO 07/15/2024 12:55 PM Signed Refill sent. Allergies As of Date: 07/15/2024 Noted Allergy Reaction TOPROL XL (METOPROLOL) 05/30/2021 14 - Other: See Comments Comments: General illness, felt lousy, GI upset [facility] 01/18/2009 Date Reviewed: 07/08/2024 Reviewed by: Adela Romero Ma, MA - Fully Assessed Reason for Visit: Results [95] Visit Diagnosis:Essential thrombocytosis (HCC) [D47.3] Order(s):hydroxyurea (HYDREA) 500 mg capsuleTake 2 capsules by mouth once daily.Disp: 60 capsuleRfl: 2 Prescriptions as of 07/15/2024 - hydroxyurea (HYDREA) 500 mg capsule Take 2 capsules by mouth once daily. - buPROPion XL (WELLBUTRIN XL) 300 mg 24 hr tablet Take 1 tablet by mouth once daily. - folic acid 1 mg tablet Take 2 tablets by mouth once daily. - carvedilol (COREG) 3.125 mg tablet Take 3.125 mg by mouth twice daily. - losartan (COZAAR) 25 mg tablet Take 1 tablet by mouth once daily. Meds Comments as of 09/03/2018: Uses [facility] and [facility]. Problem List As Of Date 07/15/2024 Noted Resolved Other closed fractures of distal end of radius *09/07/2004 09/03/2018 PAIN IN LIMB [M79.609] 09/28/2004 Pure hypercholesterolemia [E78.00] 12/01/2016 Asthma [J45.909] 11/30/2014 Unspecified Essential Hypertension [I10] 02/19/2009 Mixed hyperlipidemia [E78.2] Hypertension [I10] 02/02/2010 11/20/2019 Coronary artery spasm [I20.1] 05/16/2012 Mild intermittent asthma without complication [*11/30/2014 Overweight (BMI 25.0-29.9) [E66.3] Chewing tobacco use [Z72.0] Nonischemic cardiomyopathy (HCC) [I42.8] 05/30/2021 Anxiety with depression [F41.8] 06/01/2022 Blood in stool [K92.1] 07/06/2022 Dark stools [R19.5] 07/06/2022 Stage 3a chronic kidney disease (HCC) [N18.31] 06/03/2024 Aortic stenosis [I35.0] Prescriptions ordered this encounter Disp Refills Start End HYDROXYUREA 500 MG CAPSULE 60 c* 2 07/15/2024 Route: PO Sig: Take 2 capsules by mouth once daily. Medications Discontinued During This Encounter Prescriptions - hydroxyurea (HYDREA) 500 mg capsule (Discontinued) Take 1 capsule by mouth once daily. Encounter Status:Closed by YANELI CEDENO on 07/15/24 Normal [facility] Matthieu 07-10-2024 [facility] Telephone (HEMAWS) HUSAM BARROW ([id number]) 1950 M Date Time Provider Department 07/10/24 ALVERTO EDWARDS During your visit today, we recorded the following information about you: Yaneli Cedeno LPN 07/10/2024 3:12 PM Signed Left a message for patient to contact office to confirm that he is aware to have his CBC drawn weekly at the [facility]. He has a standing order though he may want to schedule an appointment for labs every week. GARIMA Cornell Sherrie 07/10/2024 3:25 PM Signed Patient returned call and is aware of lab drawl weekly prefers to do a walk in and will be here next Sunday. Allergies As of Date: 07/10/2024 Noted Allergy Reaction TOPROL XL (METOPROLOL) 05/30/2021 14 - Other: See Comments Comments: General illness, felt lousy, GI upset BAYCOL 01/18/2009 Date Reviewed: 07/08/2024 Reviewed by: Adela Romero Ma, MA - Fully Assessed Reason for Visit: Appointment [186] Prescriptions as of 07/10/2024 - hydroxyurea (HYDREA) 500 mg capsule Take 1 capsule by mouth once daily. - buPROPion XL (WELLBUTRIN XL) 300 mg 24 hr tablet Take 1 tablet by mouth once daily. - folic acid 1 mg tablet Take 2 tablets by mouth once daily. - carvedilol (COREG) 3.125 mg tablet Take 3.125 mg by mouth twice daily. - losartan (COZAAR) 25 mg tablet Take 1 tablet by mouth once daily. Meds Comments as of 09/03/2018: [facility] Problem List As Of Date 07/10/2024 Noted Resolved Other closed fractures of distal end of radius *09/07/2004 09/03/2018 PAIN IN LIMB [M79.609] 09/28/2004 Pure hypercholesterolemia [E78.00] 12/01/2016 Asthma [J45.909] 11/30/2014 Unspecified Essential Hypertension [I10] 02/19/2009 Mixed hyperlipidemia [E78.2] Hypertension [I10] 02/02/2010 11/20/2019 Coronary artery spasm [I20.1] 05/16/2012 Mild intermittent asthma without complication [*11/30/2014 Overweight (BMI 25.0-29.9) [E66.3] Chewing tobacco use [Z72.0] Nonischemic cardiomyopathy (HCC) [I42.8] 05/30/2021 Anxiety with depression [F41.8] 06/01/2022 Blood in stool [K92.1] 07/06/2022 Dark stools [R19.5] 07/06/2022 Stage 3a chronic kidney disease (HCC) [N18.31] 06/03/2024 Aortic stenosis [I35.0] Encounter Status:Closed by YANELI CEDENO on 07/10/24 [facility] 07[facility]09[facility]2024 [facility] HUSAM BARROW ([id number]) 1950 Date Time Provider Department 07/09/24 ALVERTO EDWARDS HEMAWS During your visit today, we recorded the following information about you: Alverto Edwards DO 07/09/2024 6:34 AM Signed Based on lab results from yesterday, let him know to increase Hydrea to 2 capsules once daily. He has order to get CBC weekly. DO Daylin Moreno Kara, LPN 07/09/2024 8:27 AM Signed Left message to call office for instructions. Updated med list to reflect change. GARIMA Lerma, [place] 07/09/2024 8:27 AM Signed Relayed message to patient Allergies As of Date: 07/09/2024 Noted Allergy Reaction TOPROL XL (METOPROLOL) 05/30/2021 14 - Other: See Comments Comments: General illness, felt lousy, GI upset [facility]AY[facility] 01/18/2009 Date Reviewed: 07/08/2024 Reviewed by: Adela Romero Ma, MA - Fully Assessed Reason for Visit: Results [95] Prescriptions as of 07/09/2024 - hydroxyurea (HYDREA) 500 mg capsule Take 1 capsule by mouth once daily. - buPROPion XL (WELLBUTRIN XL) 300 mg 24 hr tablet Take 1 tablet by mouth once daily. - folic acid 1 mg tablet Take 2 tablets by mouth once daily. - carvedilol (COREG) 3.125 mg tablet Take 3.125 mg by mouth twice daily. - losartan (COZAAR) 25 mg tablet Take 1 tablet by mouth once daily. Meds Comments as of 09/03/2018: Uses [facility]. Problem List As Of Date 07/09/2024 Noted Resolved Other closed fractures of distal end of radius *09/07/2004 09/03/2018 PAIN IN LIMB [M79.609] 09/28/2004 Pure hypercholesterolemia [E78.00] 12/01/2016 Asthma [J45.909] 11/30/2014 Unspecified Essential Hypertension [I10] 02/19/2009 Mixed hyperlipidemia [E78.2] Hypertension [I10] 02/02/2010 11/20/2019 Coronary artery spasm [I20.1] 05/16/2012 Mild intermittent asthma without complication [*11/30/2014 Overweight (BMI 25.0-29.9) [E66.3] Chewing tobacco use [Z72.0] Nonischemic cardiomyopathy (HCC) [I42.8] 05/30/2021 Anxiety with depression [F41.8] 06/01/2022 Blood in stool [K92.1] 07/06/2022 Dark stools [R19.5] 07/06/2022 Stage 3a chronic kidney disease (HCC) [N18.31] 06/03/2024 Aortic stenosis [I35.0] Encounter Status:Closed by XENA MAO on 07/09/24 Normal [facility] CBC W Auto Differential pane l (Bld)on 07-08-2024 Basophils (Bld) [#/Vol] 0.08 10*3/uL [facility] Basophils/100 WBC (Bld) 0.7 % C [facility] Differential cell count method Nom (Bld) Auto [facility] Eosinophils (Bld) [#/Vol] 0.43 10*3/uL [facility] Eosinophils/100 WBC (Bld) 3.5 % [facility] Erythrocyte distribution width (RBC) [Ratio] 16.2 % High 11.5 - 15.0 % [facility] Hematocrit (Bld) [Volume fraction] 39.3 % 39.0 - 51.0 % [facility] Hemoglobin (Bld) [Mass/Vol] 13 g/dL 13.0 - 17.0 g/dL [facility] Immature granulocytes (Bld) [#/Vol] 0.05 10*3/uL [facility] Immature granulocytes/100 WBC (Bld) 0.4 % [facility] Interpretation and review of laboratory results Abnormal [facility] Lymphocytes (Bld) [#/Vol] 1.5 10*3/uL [facility] Lymphocytes/100 WBC (Bld) 12.3 % [facility] MCH (RBC) [Entitic mass] 31.5 pg 26.0 - 34.0 pg [facility] MCHC (RBC) [Mass/Vol] 33.1 g/dL 30.5 - 36.0 g/dL [facility] MCV (RBC) [Entitic vol] 95.2 fL 80.0 - 100.0 fL [facility] Monocytes (Bld) [#/Vol] 1.34 10*3/uL [facility] Monocytes/100 WBC (Bld) 11 % [facility] Neutrophils (Bld) [#/Vol] 8.8 10*3/uL High [facility] Neutrophils/100 WBC (Bld) 72.1 % [facility] Nucleated RBC (Bld) [#/Vol] [facility] Nucleated RBC/100 WBC (Bld) [Ratio] 0 % /100 WBC [facility] Platelet mean volume (Bld) [Entitic vol] 10.5 fL 9.0 - 12.7 fL [facility] Platelets (Bld) [#/Vol] 1184 10*3/uL High [facility] RBC (Bld) [#/Vol] 4.13 10*6/uL Low 4.20 - 6.0 0 m/uL [facility] WBC (Bld) [#/Vol] 12.2 10*3/uL [facility] Basophils (Bld) [#/Vol] 0.08 10*3/uL Normal <0.11 [facility] Comment on above: Order Comment: Speci men Type: BLOOD SPECIMEN Ordering Facility: [facility] Address: [address] [place] [address] Performed By: #### 2 4323-8, 14897-3 #### [facility] CLIA [id number] [address] [place] [address] [place] Basophils/100 WBC (Bld) 0.7 % Normal C [facility] Comment on above: Order Comment: Speci men Type: BLOOD SPECIMEN Ordering Facility: [facility] Address: [address] [place] [address] Performed By: #### 2 4323-8, 04562-0 #### [facility] CLIA [id number] [address] [place] [address] [place] Differential cell count method Nom (Bld) Auto Normal [facility] Comment on above: Order Comment: Speci men Type: BLOOD SPECIMEN Ordering Facility: [facility] Address: [address] [place] [address] Performed By: #### 2 4323-8, 23013-7 #### [facility] CLIA [id number] [address] [place] [address] [place] Eosinophils (Bld) [#/Vol] 0.43 10*3/uL Normal <0.46 [facility] Comment on above: Order Comment: Speci men Type: BLOOD SPECIMEN Ordering Facility: [facility] Address: [address] [place] [address] Performed By: #### 2 4323-8, 99930-4 #### [facility] CLIA [id number] [address] [place] [address] [place] Eosinophils/100 WBC (Bld) 3.5 % Normal [facility] Comment on above: Order Comment: Speci men Type: BLOOD SPECIMEN Ordering Facility: [facility] Address: [address] [place] [address] Performed By: #### 2 4323-8, 51001-7 #### [facility] CLIA [id number] [address] [place] [address] [place] Erythrocyte distribution width (RBC) [Ratio] 16.2 % High 11.5-15.0 [facility] Comment on above: Order Comment: Speci men Type: BLOOD SPECIMEN Ordering Facility: [facility] Address: [address] [place] [address] Performed By: #### 2 4323-8, 04397-5 #### [facility] CLIA [id number] [address] [place] [address] [place] Hematocrit (Bld) [Volume fraction] 39.3 % Normal 39.0-51.0 [facility] Comment on above: Order Comment: Speci men Type: BLOOD SPECIMEN Ordering Facility: [facility] Address: [address] [place] [address] Performed By: #### 2 4323-8, 69184-1 #### [facility] CLIA [id number] [address] [place], [place] [address] [place] Hemoglobin (Bld) [Mass/Vol] 13.0 g/dL Normal 13.0-17.0 [facility] Comment on above: Order Comment: Speci men Type: BLOOD SPECIMEN Ordering Facility: [facility] Address: [address] [place] [address] Performed By: #### 2 4323-8, 86877-7 #### [facility] CLIA [id number] [address] [place] [address] [place] Immature granulocytes (Bld) [#/Vol] 0.05 10*3/uL Normal <0.10 [facility] Comment on above: Order Comment: Speci men Type: BLOOD SPECIMEN Ordering Facility: [facility] Address: [address] [place] [address] Performed By: #### 2 4323-8, 35778-6 #### [facility] CLIA [id number] [address] [place] [address] [place] Immature granulocytes/100 WBC (Bld) 0.4 % Normal [facility] Comment on above: Order Comment: Speci men Type: BLOOD SPECIMEN Ordering Facility: [facility] Address: [address] [place] [address] Performed By: #### 2 4323-8, 18332-1 #### [facility] CLIA [id number] [address] [place] [address] [place] Lymphocytes (Bld) [#/Vol] 1.50 10*3/uL Normal 1.00-4.00 [facility] Comment on above: Order Comment: Speci men Type: BLOOD SPECIMEN Ordering Facility: [facility] Address: [address] [place] [address] Performed By: #### 2 4323-8, 79401-0 #### [facility] CLIA [id number] [address] [place] [address] [place] Lymphocytes/100 WBC (Bld) 12.3 % Normal [facility] Comment on above: Order Comment: Speci men Type: BLOOD SPECIMEN Ordering Facility: [facility] Address: [address] [place] [address] Performed By: #### 2 4323-8, 65650-5 #### [facility] CLIA [id number] [address] [place] [address] [place] MCH (RBC) [Entitic mass] 31.5 pg Normal 26.0-34.0 [facility] Comment on above: Order Comment: Speci men Type: BLOOD SPECIMEN Ordering Facility: [facility] Address: [address] [place] [address] Performed By: #### 2 4323-8, 59138-3 #### [facility] CLIA [id number] [address] [place] [address] [place] MCHC (RBC) [Mass/Vol] 33.1 g/dL Normal 30.5-36.0 [facility] Comment on above: Order Comment: Speci men Type: BLOOD SPECIMEN Ordering Facility: [facility] Address: [address] [place] [address] Performed By: #### 2 4323-8, 00036-3 #### [facility] CLIA [id number] [address] [place] [address] [place] MCV (RBC) [Entitic vol] 95.2 fL Normal 80.0-100.0 C [facility] Comment on above: Order Comment: Speci men Type: BLOOD SPECIMEN Ordering Facility: [facility] Address: [address] [place] [address] Performed By: #### 2 4323-8, 36149-1 #### [facility] CLIA [id number] [address] [place] [address] [place] Monocytes (Bld) [#/Vol] 1.34 10*3/uL High <0.87 [facility] Comment on above: Order Comment: Speci men Type: BLOOD SPECIMEN Ordering Facility: [facility] Address: [address] [place] [address] Performed By: #### 2 4323-8, 57634-6 #### [facility] CLIA [id number] [address] [place] [address] [place] Monocytes/100 WBC (Bld) 11.0 % Normal C [facility] Comment on above: Order Comment: Speci men Type: BLOOD SPECIMEN Ordering Facility: [facility] Address: [address] [place] [address] Performed By: #### 2 4323-8, 18288-2 #### [facility] CLIA [id number] [address] [place] [address] [place] Neutrophils (Bld) [#/Vol] 8.80 10*3/uL High 1.45-7.50 [facility] Comment on above: Order Comment: Speci men Type: BLOOD SPECIMEN Ordering Facility: [facility] Address: [address] [place] [address] Performed By: #### 2 4323-8, 37807-2 #### [facility] CLIA [id number] [address] [place] [address] [place] Neutrophils/100 WBC (Bld) 72.1 % Normal [facility] Comment on above: Order Comment: Speci men Type: BLOOD SPECIMEN Ordering Facility: [facility] Address: [address] [place] [address] Performed By: #### 2 4323-8, 47151-9 #### [facility] CLIA [id number] [address] [place] [address] [place] Nucleated RBC (Bld) [#/Vol] 10*3/uL Normal <0.01 [facility] Comment on above: Order Comment: Speci men Type: BLOOD SPECIMEN Ordering Facility: [facility] Address: [address] [place] [address] Performed By: #### 2 4323-8, 70311-4 #### [facility] CLIA [id number] [address] [place] [address] [place] Nucleated RBC/100 WBC (Bld) [Ratio] 0.0 /100 WBC Normal [facility] Comment on above: Order Comment: Speci men Type: BLOOD SPECIMEN Ordering Facility: [facility] Address: [address] [place] [address] Performed By: #### 2 4323-8, 23590-9 #### [facility] CLIA [id number] [address] [place] [address] [place] Platelet mean volume (Bld) [Entitic vol] 10.5 fL Normal 9.0-12.7 [facility] Comment on above: Order Comment: Speci men Type: BLOOD SPECIMEN Ordering Facility: [facility] Address: [address] [place] [address] Performed By: #### 2 4323-8, 87710-8 #### [facility] CLIA [id number] [address] [place] [address] [place] Platelets (Bld) [#/Vol] 1184 10*3/uL High 150-400 [facility] Comment on above: Order Comment: Speci men Type: BLOOD SPECIMEN Ordering Facility: [facility] Address: [address] [place] [address] Performed By: #### 2 4323-8, 07607-2 #### [facility] CLIA [id number] [address] [place] [address] [place] RBC (Bld) [#/Vol] 4.13 10*6/uL Low 4.20-6.00 [facility] Comment on above: Order Comment: Speci men Type: BLOOD SPECIMEN Ordering Facility: [facility] Address: [address] [place] [address] Performed By: #### 2 4323-8, 28819-3 #### [facility] CLIA [id number] [address] [place] [address] [place] WBC (Bld) [#/Vol] 12.20 10*3/uL High 3.70-11.[address] [facility] Comment on above: Order Comment: Speci men Type: BLOOD SPECIMEN Ordering Facility: [facility] Address: [address] [place] [address] Performed By: #### 2 4323-8, 76105-4 #### [facility] CLIA [id number] [address] [place] [address] [place] CNOVSPon 07-08-2024 CNOVSP Visit (SP) Office (HEMEDIS) HUSAM BARROW ([id number]) 1950 M Date Time Provider Department 07/08/24 3:00 PM ALVERTO EDWARDS During your visit today, we recorded the following information about you: Temperature Pulse Blood pressure Weight 98.1 degrees 57/minute 131/78 86.4 kg Height 1.759 m Alverto Edwards DO 07/08/2024 4:51 PM Signed Patient referred by Edwin Naranjo APRN.CNP for thrombocytosis. HPI: The patient is a 73-year-old male with past medical history as outlined below. Patient has been noted to have an increased white blood cell count for several years. 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 Underwent a bone marrow biopsy on 02/20/2024. The report indicates myeloproliferative neoplasm with fibrosis-1. No increase in blasts were observed. FISH for BCR-ABL was negative. 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 History of prior splenectomy: No. ASA was held last week due to platelet count over 1 million. No prior history of stroke or AK. He does have a history of angina. This was evidently secondary to coronary artery spasm. No unusual bleeding. He has been purposely trying to lose weight. Eating mostly meats, carnivore diet." PAST MEDICAL HISTORY Diagnosis Date Aortic stenosis echo 2024 Blood in stool Chewing tobacco use Coronary artery spasm Hypertension 02/02/2010 Myeloproliferative neoplasm (HCC) bone marrow biospy 2024 Osteoarthritis, knee bilateral, seeing [facility] Overweight (BMI 25.0-29.9) Pure hypercholesterolemia Syncope 1999 x3 Unspecified asthma(493.90) Unspecified essential hypertension PAST SURGICAL HISTORY Procedure Laterality Date ARTHROSCOPY KNEE DIAGNOSTIC W/WO SYNOVIAL BX SPX Arthroscopy, knee COLONOSCOPY 2009 normal, repeat in 10 years COLONOSCOPY N/A 07/06/2022 COLONOSCOPY FLX DX W/COLLJ SPEC WHEN PFRMD 2003 Colonoscopy EGD W/O [facility] SPEC VARICIES INJ N/A 07/06/2022 PAST SURGICAL HISTORY OF 1998 heart cath PAST SURGICAL HISTORY OF 2005 repair fx left foearm plate and screw PAST SURGICAL HISTORY OF N/A 02/2021 Heart Cath in [place] TONSILLECTOMY AND ADENOIDECTOMY buPROPion XL (WELLBUTRIN XL) 300 mg 24 hr tablet Take 1 tablet by mouth once daily. folic acid 1 mg tablet Take 2 tablets by mouth once daily. carvedilol (COREG) 3.125 mg tablet Take 3.125 mg by mouth twice daily. losartan (COZAAR) 25 mg tablet Take 1 tablet by mouth once daily. ALLERGIES Allergen Reactions Toprol Xl [Metoprol* Other: See Comments General illness, felt lousy, GI upset [facility] Social History Tobacco Use Smoking status: Never Smokeless tobacco: Former Types: Chew Quit date: 01/12/2023 Vaping Use Vaping status: Never Used Substance Use Topics Alcohol use: Yes Alcohol/week: 1.0 standard drink of alcohol Types: 1 Glasses of Wine (5oz) per week Drug use: No FAMILY HISTORY Problem Relation Age of Onset Heart Mother CHF REVIEW OF SYSTEMS: Constitutional: No episodes of fever and night sweats. Not significantly fatigued. Neuro: No PAYNE, vertigo, dizziness and imbalance. No symptoms of neuropathy. HEENT: No recent change in voice, vision or hearing. Resp: No cough, wheeze and hemoptysis. No shortness of breath at rest. No MATUTE. CVS: No exertional chest pain, PND, orthopnea and LE edema. GI: No reflux, n/v, change in bowel habits or abdominal pain. : No dysuria or gross hematuria. No symptoms of bladder outlet obstruction. Endo: No hot flashes. No polyuria and polydipsia. No heat and cold intolerance. Musculoskeletal: No bone, back, joint and muscular pain. Derm: No current rash. No history of jaundice or diffuse pruritis. Heme: No unusual bleeding and unexplained bruising. Psych: Normal mood. PHYSICAL EXAM: Vitals: Blood pressure 131/78, pulse (!) 57, temperature 36.7 ?C (98.1 ?F), temperature source Temporal, height 175.9 cm (5' 9.25"), weight 86.4 kg (190 lb 8 oz), SpO2 97%. Well-appearing and in no acute distress. EYES: Sclerae are anicteric bilaterally. LYMPHATIC: There is no palpable adenopathy. CARDIOVASCULAR: Rhythm is regular. ABDOMEN: The abdomen is nondistended. Very mild nontender splenomegaly only appreciated laterally with deep inspiration. SKIN: No jaundice. 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 - Discussed with him the rationale for stopping aspirin since platelet count is over million. - He has intermediate risk disease but since platelet count is over million, cytoreductive therapy is indicated at this time. - Discussed with him the use of hydroxyurea. Plan: - Start hydroxyurea 500 mg once daily. - CBC, CMP, iron studies, B12, MMA and serum folate today. - CBC weekly. - Plan to restart aspirin (more content not included)... Normal [facility] Ferritin SerPl-mCncon 2024 Ferritin [Mass/Vol] 310.0 ng/mL Normal 30.3-565.[address] [facility] Comment on above: Order Comment: Luis zafar Type: BLOOD SPECIMEN Ordering Facility: [facility] Address: [address] [place] [address] Performed By: #### 2 4323-8, 19586-2 #### [facility] CLIA [id number] [address] [place] [address] [place] Folate SerPl-mCncon 07-09-19 25 Folate [Mass/Vol] ng/mL Normal >4.7 [facility] Comment on above: Order Comment: Luis zafar Type: BLOOD SPECIMEN Ordering Facility: [facility] Address: [address] [place] [address] Result Comment: A re sult of > 20 ng/mL is not necessarily indicative of a pathologic or treatable condition: it reflects a limitation of the test methodology. Assay reference range: 4.8 to 24.2 ng/mL. Suitable for detection of folate deficiency. Reference: Folate III (Folate III) [package insert V 1.0 Brazilian]. [facility], [place], [place]: December 2014. Performed By: #### 5 7021-8 #### [facility] CLIA [id number] [address] [place] [address] [place] Iron and Iron binding capaci ty panelon 07-08-2024 Iron [Mass/Vol] 82 ug/dL Normal 41-186 [facility] Comment on above: Order Comment: Speci men Type: BLOOD SPECIMEN Ordering Facility: [facility] Address: [address] [place] [address] Performed By: #### 2 4323-8, 34015-0 #### [facility] CLIA [id number] [address] [place] [address] [place] Iron binding capacity [Mass/Vol] 306 ug/dL Normal 232-386 [facility] Comment on above: Order Comment: Speci men Type: BLOOD SPECIMEN Ordering Facility: [facility] Address: [address] [place] [address] Performed By: #### 2 4323-8, 15081-7 #### [facility] CLIA [id number] [address] [place] [address] [place] Iron/TIBC [Molar ratio] 26.8 % Normal 15.0-57.0 [facility] Comment on above: Order Comment: Speci men Type: BLOOD SPECIMEN Ordering Facility: [facility] Address: [address] [place] [address] Performed By: #### 2 4323-8, 30825-0 #### [facility] CLIA [id number] [address] [place] [address] [place] Methylmalonate SerPl-sCncon 07-08-2024 Methylmalonate [Moles/Vol] 0.28 umol/L Normal <=0.40 [facility] Comment on above: Order Comment: Speci men Type: BLOOD SPECIMEN Ordering Facility: [facility] Address: [address] [place] [address] Result Comment: This test was developed, and its performance characteristics determined by the [facility] Department of Pathology and Laboratory Medicine. It has not been cleared or approved by the FDA. The [facility] Department of Pathology and Laboratory Medicine is regulated under CLIA as qualified to perform high-complexity testing. This test is used for clinical purposes. It should not be regarded as investigational or for research. Performed By: #### 5 7021-8 #### [facility] CLIA [id number] [address] [place] [address] [place] Vit B12 SerPl-ncon 05-27-2 025 Cobalamin (Vitamin B12) [Mass/Vol] 367 pg/mL Normal 232-1245 [facility] Comment on above: Order Comment: Speci andrade Type: BLOOD SPECIMEN Ordering Facility: [facility] Address: [address] [place] [address] Performed By: #### 2 4323-8, 22849-9 #### [facility] CLIA [id number] [address] [place] [address] [place] [facility]2024 [facility] HUSAM BARROW ([id number]) 1950 M Date Time Provider Department 06/24/24 EDWIN NARANJO [facility] During your visit today, we recorded the following information about you: Edwin Naranjo APRN.[facility] 06/24/2024 8:41 AM Signed Please let the patient know that hematology reached out to me. Dr. Edwards is recommending that the patient stop the Aspirin 81 mg tablet as it can increase risk of internal bleeding with his platelet count. He is going to review the records that we received yesterday and potentially reach out to patient to start a new medication prior to his upcoming appointment. Edwin Naranjo APRN.Yecenia Ruano LPN 06/24/2024 8:45 AM Signed Left message to return call Mónica Villeda RN 06/24/2024 4:17 PM Signed Patient returned call and given provider's message below and patient verbalized understanding. Selwyn Villeda RN Allergies As of Date: 06/24/2024 Noted Allergy Reaction TOPROL XL (METOPROLOL) 05/30/2021 14 - Other: See Comments Comments: General illness, felt lousy, GI upset [facility] 01/18/2009 Date Reviewed: 12/13/2023 Reviewed by: Hailey Smiley LPN - Fully Assessed Reason for Visit: Medication Problem [65] Prescriptions as of 06/24/2024 - buPROPion XL (WELLBUTRIN XL) 300 mg 24 hr tablet Take 1 tablet by mouth once daily. - folic acid 1 mg tablet Take 2 tablets by mouth once daily. - carvedilol (COREG) 3.125 mg tablet Take 3.125 mg by mouth twice daily. - losartan (COZAAR) 25 mg tablet Take 1 tablet by mouth once daily. Meds Comments as of 09/03/2018: Uses Xiomara Minaya. Problem List As Of Date 06/24/2024 Noted Resolved Other closed fractures of distal end of radius *09/07/2004 09/03/2018 PAIN IN LIMB [M79.609] 09/28/2004 Pure hypercholesterolemia [E78.00] 12/01/2016 Asthma [J45.909] 11/30/2014 Unspecified Essential Hypertension [I10] 02/19/2009 Mixed hyperlipidemia [E78.2] Hypertension [I10] 02/02/2010 11/20/2019 Coronary artery spasm [I20.1] 05/16/2012 Mild intermittent asthma without complication [*11/30/2014 Overweight (BMI 25.0-29.9) [E66.3] Chewing tobacco use [Z72.0] Nonischemic cardiomyopathy (HCC) [I42.8] 05/30/2021 Anxiety with depression [F41.8] 06/01/2022 Blood in stool [K92.1] 07/06/2022 Dark stools [R19.5] 07/06/2022 Stage 3a chronic kidney disease (HCC) [N18.31] 06/03/2024 Aortic stenosis [I35.0] Medications Discontinued During This Encounter Prescriptions - aspirin 81 mg cap (Discontinued) Take 1 capsule by mouth once daily. Encounter Status:Closed by MÓNICA VILLEDA on 06/24/24 [facility] CNOVon 06-20-2024 CNOV Office Visit (FAMPWS ) HUSAM BARROW ([id number]) 1950 M Date Time Provider Department 06/20/24 1:40 PM [facility] During your visit today, we recorded the following information about you: Pulse Respiration Blood pressure Weight 50/minute 16/minute 136/78 86.2 kg Edwin Naranjo APRN.[employer] 06/20/2024 1:58 PM Signed Chief Complaint Patient presents with: 6 Month Exam HPI Husam Barrow is a 73 year old male who presents here today for above reason. Husam is a 73-year-old male presenting for a medication refill and evaluation of thrombocytosis. Husam requests refills for Wellbutrin 300 mg, taken once daily, and folic acid, which was prescribed by a previous clinician. He reports doing well overall and denies any side effects from his current medications. He is taking 81 mg of aspirin. He has a history of thrombocytosis, with platelet counts progressively increasing over the past two years. Recent lab results from June 16 show a platelet count of 1,152,000. Previous counts were 439,000 two years ago, 501,000, 526,000, and 975,000 in November. He was advised to see a hot pond operator in [place] and did so.. He reports that his hot pond operator in [place] was reluctant to prescribe blood thinners due to potential side effects but mentioned that it might be necessary if platelet counts continued to rise. He state sthat he had a bone marrow biopsy that was normal. He denies any current symptoms related to thrombocytosis. He also has a history of chronic kidney disease, with fluctuating creatinine levels over the past few years. Recent lab results show normal liver enzymes, a glucose level of 83, and an LDL of 63, down from 140 previously. He is currently on losartan to support kidney function. He had an echocardiogram in February or March, performed by his cryogenic transport driver, Dr. John, at [facility] in [place]. He denies any issues with heart valves. His blood pressure has been stable, running in the 120s/70-80s. Past medical history, appointments, medications, allergies reviewed. EXAM: BP 136/78 Pulse (!) 50 Resp 16 Wt 86.2 kg (190 lb) SpO2 98% BMI 26.50 kg/m? General Appearance: Well appearing, alert, in no acute distress, well-hydrated, well nourished.. Lungs: Lungs clear to auscultation. No wheezing, rhonchi, rales.. Heart: RRR without murmur, gallop, or rubs. No ectopy, Negative except for murmur: 1-2/6 systolic low pitched soft murmur URSB . Latest Ref Rng 11/25/2022 06/01/2023 11/21/2023 12/12/2023 06/16/2024 WBC 3.70 - 11.00 k/uL 10.95 8.91 9.23 13.08 (H) 10.78 RBC 4.20 - 6.00 m/uL 4.52 4.25 4.72 4.56 4.03 (L) Hemoglobin 13.0 - 17.0 g/dL 14.3 13.3 15.0 14.5 12.5 (L) Hematocrit 39.0 - 51.0 % 44.0 40.2 46.1 44.7 38.5 (L) MCV 80.0 - 100.0 fL 97.3 94.6 97.7 98.0 95.5 MCH 26.0 - 34.0 pg 31.6 31.3 31.8 31.8 31.0 MCHC 30.5 - 36.0 g/dL 32.5 33.1 32.5 32.4 32.5 RDW-CV 11.5 - 15.0 % 15.6 (H) 14.6 15.3 (H) 14.9 16.0 (H) Platelet Count 150 - 400 k/uL 526 (H) 647 (H) 975 (H) 901 (H) 1,152 (H) MPV 9.0 - 12.7 fL 10.2 10.3 10.2 10.2 10.0 Neut% % 62.0 61.0 61.7 72.4 68.2 Abs Neut (ANC) 1.45 - 7.50 k/uL 6.78 5.43 5.70 9.48 (H) 7.34 Lymph% % 21.0 20.8 21.5 12.9 16.3 Abs Lymph 1.00 - 4.00 k/uL 2.30 1.85 1.98 1.69 1.76 Horry% % 11.2 12.2 10.3 10.8 11.1 Abs Horry <0.87 k/uL 1.23 (H) 1.09 (H) 0.95 (H) 1.41 (H) 1.20 (H) Eosin% % 4.0 5.2 5.3 2.9 3.2 Abs Eosin <0.46 k/uL 0.44 0.46 (H) 0.49 (H) 0.38 0.35 Baso% % 0.8 0.4 0.8 0.5 0.6 Abs Baso <0.11 k/uL 0.09 0.04 0.07 0.06 0.07 Immature Gran % % 1.0 0.4 0.4 0.5 0.6 IMMATURE GRANS (ABS) <0.10 k/uL 0.11 (H) 0.04 0.04 0.06 0.06 NRBC /100 WBC 0.0 0.0 0.0 0.0 0.0 Absolute nRBC <0.01 k/uL <0.01 <0.01 <0.01 <0.01 <0.01 DTYPE Auto Auto Auto Auto Auto Protein, Total 6.3 - 8.0 g/dL 6.8 6.3 7.1 6.5 Albumin 3.9 - 4.9 g/dL 4.1 3.8 (L) 4.3 3.8 (L) Calcium 8.5 - 10.2 mg/dL 9.3 9.3 10.0 9.3 Bilirubin, Total 0.2 - 1.3 mg/dL 0.6 0.7 0.5 0.7 Alkaline Phosphatase 38 - 113 U/L 61 73 72 70 AST 14 - 40 U/L 47 (H) 31 30 36 ALT 10 - 54 U/L 56 (H) 25 23 23 Glucose 74 - 99 mg/dL 74 96 103 (H) 83 BUN 9 - 24 mg/dL 23 20 15 18 Creatinine 0.73 - 1.22 mg/dL 1.19 1.31 (H) 1.43 (H) 1.29 (H) Sodium 136 - 144 mmol/L 138 141 141 140 Potassium 3.7 - 5.1 mmol/L 4.8 4.0 4.7 3.9 Chloride 98 - 107 mmol/L 104 106 (H) 104 106 CO2 22 - 30 mmol/L 22 26 27 24 Anion Gap 8 - 15 mmol/L 12 9 10 10 eGFR >=60 mL/min/1.73m? 64 57 (L) 51 (L) 58 (L) Cholesterol, Total <200 mg/dL 140 120 209 (H) 119 Triglyceride <150 mg/dL 149 162 (H) 174 (H) 112 HDL Cholesterol >39 mg/dL 55 32 (L) 34 (L) 35 (L) Non HDL Cholesterol <130 mg/dL 85 88 175 (H) 84 Fasting Time hrs 13 12 12 12 VLDL Cholesterol <30 mg/dL 30 (H) 32 (H) 35 (H) 16 TC:HDL Ratio <5.10 2.55 3.75 6.15 (H) 3.40 LDL Cholesterol, Calculated <100 mg/dL 55 56 140 (H) 63 LDL:HDL Ratio <2.54 1.00 1.75 4.12 ( (more content not included)... Normal [facility] Matthieu 06-20-2024 LINDEN Telephone (4CQ) DANIALHUSAM Delroy ([id number]) 1950 M Date Time Provider Department 06/20/24 KWAKU FORRESTER 4CQ During your visit today, we recorded the following information about you: Kwaku Forrester, KENNEDY 06/20/2024 2:03 PM Signed Patient has consult to see hematology for Thrombocytosis [D75.839] Yaneli Cedeno LPN 06/20/2024 2:54 PM Signed Okay to schedule. GARIMA Cornell Angela 06/20/2024 3:09 PM Signed Spoke with patient and scheduled 1st available 07/[address] Grace Esquivel Allergies As of Date: 06/20/2024 Noted Allergy Reaction TOPROL XL (METOPROLOL) 05/30/2021 14 - Other: See Comments Comments: General illness, felt lousy, GI upset [facility] 01/18/2009 Date Reviewed: 12/13/2023 Reviewed by: Hailey Smiley LPN - Fully Assessed Prescriptions as of 06/20/2024 - buPROPion XL (WELLBUTRIN XL) 300 mg 24 hr tablet Take 1 tablet by mouth once daily. - folic acid 1 mg tablet Take 2 tablets by mouth once daily. - aspirin 81 mg cap Take 1 capsule by mouth once daily. - carvedilol (COREG) 3.125 mg tablet Take 3.125 mg by mouth twice daily. - losartan (COZAAR) 25 mg tablet Take 1 tablet by mouth once daily. Meds Comments as of 09/03/2018: Uses Xiomara Minaya. Problem List As Of Date 06/20/2024 Noted Resolved Other closed fractures of distal end of radius *09/07/2004 09/03/2018 PAIN IN LIMB [M79.609] 09/28/2004 Pure hypercholesterolemia [E78.00] 12/01/2016 Asthma [J45.909] 11/30/2014 Unspecified Essential Hypertension [I10] 02/19/2009 Mixed hyperlipidemia [E78.2] Hypertension [I10] 02/02/2010 11/20/2019 Coronary artery spasm [I20.1] 05/16/2012 Mild intermittent asthma without complication [*11/30/2014 Overweight (BMI 25.0-29.9) [E66.3] Chewing tobacco use [Z72.0] Nonischemic cardiomyopathy (HCC) [I42.8] 05/30/2021 Anxiety with depression [F41.8] 06/01/2022 Blood in stool [K92.1] 07/06/2022 Dark stools [R19.5] 07/06/2022 Stage 3a chronic kidney disease (HCC) [N18.31] 06/03/2024 Encounter Status:Closed by SUPRIYA ESQUIVEL on 06/20/24 Normal [facility] CBC W Auto Differential pane l (Bld)on 06-16-2024 Basophils (Bld) [#/Vol] 0.07 10*3/uL Normal <0.11 [facility] Comment on above: Order Comment: Speci men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 Date Reviewed: 12/13/2023 Reviewed by: Hailey Smiley LPN - Fully Assessed Reason for Visit: Cough [28] Cmt: Chest congestion, headache, tightness in chest, dry cough x 5 days Primary Visit Diagnosis:Acute cough [R05.1] Order(s):benzonatate (TESSALON PERLE) 100 mg capsuleTake 1 capsule by mouth every 8 hours as needed for cough for up to 15 days.Disp: 30 capsuleRfl: 0 doxycycline monohydrate (MONODOX) 100 mg capsuleTake 1 capsule by mouth two times a day for 5 days.Disp: 10 capsuleRfl: 0 Prescriptions as of 12/13/2023 - benzonatate (TESSALON PERLE) 100 mg capsule Take 1 capsule by mouth every 8 hours as needed for cough for up to 15 days. - doxycycline monohydrate (MONODOX) 100 mg capsule Take 1 capsule by mouth two times a day for 5 days. - buPROPion XL (WELLBUTRIN XL) 300 mg 24 hr tablet Take 1 tablet by mouth once daily. TAKE 1 TABLET BY MOUTH ONCE DAILY IN THE MORNING - folic acid 1 mg tablet Take 2 tablets by mouth once daily. - aspirin 81 mg cap Take 1 capsule by mouth once daily. - carvedilol (COREG) 3.125 mg tablet Take 3.125 mg by mouth twice daily. - losartan (COZAAR) 25 mg tablet Take 1 tablet by mouth once daily. Meds Comments as of 09/03/2018: [facility]. Problem List As Of Date 12/13/2023 Noted Resolved Other closed fractures of distal end of radius *09/07/2004 09/03/2018 PAIN IN LIMB [M79.609] 09/28/2004 Pure hypercholesterolemia [E78.00] 12/01/2016 Asthma [J45.909] 11/30/2014 Unspecified Essential Hypertension [I10] 02/19/2009 Mixed hyperlipidemia [E78.2] Hypertension [I10] 02/02/2010 11/20/2019 Coronary artery spasm [I20.1] 05/16/2012 Mild intermittent asthma without complication [*11/30/2014 Overweight (BMI 25.0-29.9) [E66.3] Chewing tobacco use [Z72.0] Nonischemic cardiomyopathy (HCC) [I42.8] 05/30/2021 Anxiety with depression [F41.8] 06/01/2022 Blood in stool [K92.1] 07/06/2022 Dark stools [R19.5] 07/06/2022 Prescriptions ordered this encounter Disp Refills Start End BENZONATATE 100 MG CAPSULE 30 c* 0 12/13/2023 12/28/2023 Route: ORAL Sig: Take 1 capsule by mouth every 8 hours as needed for cough for up to 15 days. DOXYCYCLINE MONOHYDRATE 100 MG CAPSU* 10 c* 0 12/13/2023 (more content not included)... Normal [facility] 12-13-2023 [facility] HUSAM BARROW ([id number]) 1950 M Date Time Provider Department 12/13/23 [facility] During your visit today, we recorded the following information about you: Brien Singer MD 12/13/2023 5:53 PM Signed Please notify patient that his repeat CBC does show that his platelets are still high, and his WBC is a little high also. So I would suggest a Hematology consult for further evaluation of these abnormalities. He may see someone in [place] if that works better for him, since they are planning to go there this week. [place] Margarito Woo R[place], [place] 12/14/2023 9:32 AM Signed Call to pt. Notified him of results and recommendations below from Provider. Pt verbalized understanding. Is leaving for [place] Sunday, so would prefer to see someone in [place]. Pt notified to contact the office with who he would like to see in [place] and we can fax the referral paperwork, recent labs and OV note. Pt states he will try to do this. ALLAN Sky Mark D, MD 12/14/2023 10:38 AM Signed Order filed MD Juan Manuel Woo Kathryn, [place] 12/14/2023 10:41 AM Signed Pt is going to see someone in [place]. Katty Zambrano MA Allergies As of Date: 12/13/2023 Noted Allergy Reaction TOPROL XL (METOPROLOL) 05/30/2021 14 - Other: See Comments Comments: General illness, felt lousy, GI upset [facility] 01/18/2009 Date Reviewed: 12/13/2023 Reviewed by: Hailey Smiley LPN - Fully Assessed Reason for Visit: Results [95] Primary Visit Diagnosis:Thrombocytosi s [D75.839] Other Visit Diagnoses:Elevated platelet count [R79.89] Leukocytosis, unspecified type [D72.829] Order(s):CONSULT TO HEMATOLOGY/ONCOLOGY [[id number]] Order #: [id number]: 1 FUTURE Prescriptions as of 12/14/2023 - benzonatate (TESSALON PERLE) 100 mg capsule Take 1 capsule by mouth every 8 hours as needed for cough for up to 15 days. - doxycycline monohydrate (MONODOX) 100 mg capsule Take 1 capsule by mouth two times a day for 5 days. - buPROPion XL (WELLBUTRIN XL) 300 mg 24 hr tablet Take 1 tablet by mouth once daily. TAKE 1 TABLET BY MOUTH ONCE DAILY IN THE MORNING - folic acid 1 mg tablet Take 2 tablets by mouth once daily. - aspirin 81 mg cap Take 1 capsule by mouth once daily. - carvedilol (COREG) 3.125 mg tablet Take 3.125 mg by mouth twice daily. - losartan (COZAAR) 25 mg tablet Take 1 tablet by mouth once daily. Meds Comments as of 09/03/2018: Uses [facility]. Problem List As Of Date 12/13/2023 Noted Resolved Other closed fractures of distal end of radius *09/07/2004 09/03/2018 PAIN IN LIMB [M79.609] 09/28/2004 Pure hypercholesterolemia [E78.00] 12/01/2016 Asthma [J45.909] 11/30/2014 Unspecified Essential Hypertension [I10] 02/19/2009 Mixed hyperlipidemia [E78.2] Hypertension [I10] 02/02/2010 11/20/2019 Coronary artery spasm [I20.1] 05/16/2012 Mild intermittent asthma without complication [*11/30/2014 Overweight (BMI 25.0-29.9) [E66.3] Chewing tobacco use [Z72.0] Nonischemic cardiomyopathy (HCC) [I42.8] 05/30/2021 Anxiety with depression [F41.8] 06/01/2022 Blood in stool [K92.1] 07/06/2022 Dark stools [R19.5] 07/06/2022 Encounter Status:Closed by KATTY ZAMBRANO on 12/14/23 Normal [facility] CBC W Auto Differential pane l (Bld)on 12-12-2023 Basophils (Bld) [#/Vol] 0.06 10*3/uL Normal <0.11 [facility] Comment on above: Order Comment: Speci men Type: BLOOD SPECIMEN Ordering Facility: [facility] Address: [address] [place] [address] Performed By: #### 5 7021-8 #### [facility] CLIA [id number] [address] [place] [address] [place] [address] [place] Basophils/100 WBC (Bld) 0.5 % Normal C [facility] Comment on above: Order Comment: Speci men Type: BLOOD SPECIMEN Ordering Facility: [facility] Address: [address] [place] [address] Performed By: #### 5 7021-8 #### [facility] CLIA [id number] [address] [place] [address] [place] Differential cell count method Nom (Bld) Auto Normal [facility] Comment on above: Order Comment: Speci men Type: BLOOD SPECIMEN Ordering Facility: [facility] Address: [address] [place] [address] Performed By: #### 5 7021-8 #### [facility] CLIA [id number] [address] [place] [address] [place] Eosinophils (Bld) [#/Vol] 0.38 10*3/uL Normal <0.46 [facility] Comment on above: Order Comment: Speci men Type: BLOOD SPECIMEN Ordering Facility: [facility] Address: [address] [place] [address] Performed By: #### 5 7021-8 #### [facility] CLIA [id number] [address] [place] [address] [place] Eosinophils/100 WBC (Bld) 2.9 % Normal [facility] Comment on above: Order Comment: Speci men Type: BLOOD SPECIMEN Ordering Facility: [facility] Address: [address] [place] [address] Performed By: #### 5 7021-8 #### [facility] CLIA [id number] [address] [place] [address] [place] Erythrocyte distribution width (RBC) [Ratio] 14.9 % Normal 11.5-15.0 [facility] Comment on above: Order Comment: Speci men Type: BLOOD SPECIMEN Ordering Facility: [facility] Address: [address] [place] [address] Performed By: #### 5 7021-8 #### [facility] CLIA [id number] [address] [place] [address] [place] Hematocrit (Bld) [Volume fraction] 44.7 % Normal 39.0-51.0 [facility] Comment on above: Order Comment: Speci men Type: BLOOD SPECIMEN Ordering Facility: [facility] Address: [address] [place] [address] Performed By: #### 5 7021-8 #### [facility] CLIA [id number] [address] [place] [address] [place] Hemoglobin (Bld) [Mass/Vol] 14.5 g/dL Normal 13.0-17.0 [facility] Comment on above: Order Comment: Speci men Type: BLOOD SPECIMEN Ordering Facility: [facility] Address: [address] [place] [address] Performed By: #### 5 7021-8 #### [facility] CLIA [id number] [address] [place] [address] [place] Immature granulocytes (Bld) [#/Vol] 0.06 10*3/uL Normal <0.10 [facility] Comment on above: Order Comment: Speci men Type: BLOOD SPECIMEN Ordering Facility: [facility] Address: [address] [place] [address] Performed By: #### 5 7021-8 #### [facility] CLIA [id number] [address] [place] [address] [place] Immature granulocytes/100 WBC (Bld) 0.5 % Normal [facility] Comment on above: Order Comment: Speci men Type: BLOOD SPECIMEN Ordering Facility: [facility] Address: [address] [place] [address] Performed By: #### 5 7021-8 #### [facility] CLIA [id number] [address] [place] [address] [place] Lymphocytes (Bld) [#/Vol] 1.69 10*3/uL Normal 1.00-4.00 [facility] Comment on above: Order Comment: Speci men Type: BLOOD SPECIMEN Ordering Facility: [facility] Address: [address] [place] [address] Performed By: #### 5 7021-8 #### [facility] CLIA [id number] [address] [place] [address] [place] Lymphocytes/100 WBC (Bld) 12.9 % Normal [facility] Comment on above: Order Comment: Speci men Type: BLOOD SPECIMEN Ordering Facility: [facility] Address: [address] [place] [address] Performed By: #### 5 7021-8 #### [facility] CLIA [id number] [address] [place] [address] [place] MCH (RBC) [Entitic mass] 31.8 pg Normal 26.0-34.0 [facility] Comment on above: Order Comment: Speci men Type: BLOOD SPECIMEN Ordering Facility: [facility] Address: [address] [place] [address] Performed By: #### 5 7021-8 #### [facility] CLIA [id number] [address] [place] [address] [place] MCHC (RBC) [Mass/Vol] 32.4 g/dL Normal 30.5-36.0 [facility] Comment on above: Order Comment: Speci men Type: BLOOD SPECIMEN Ordering Facility: [facility] Address: [address] [place] [address] Performed By: #### 5 7021-8 #### [facility] CLIA [id number] [address] [place] [address] [place] MCV (RBC) [Entitic vol] 98.0 fL Normal 80.0-100.0 [facility] Comment on above: Order Comment: Speci men Type: BLOOD SPECIMEN Ordering Facility: [facility] Address: [address] [place] [address] Performed By: #### 5 7021-8 #### [facility] CLIA [id number] [address] [place] [address] [place] Monocytes (Bld) [#/Vol] 1.41 10*3/uL High <0.87 [facility] Comment on above: Order Comment: Speci men Type: BLOOD SPECIMEN Ordering Facility: [facility] Address: [address] [place] [address] Performed By: #### 5 7021-8 #### [facility] CLIA [id number] [address] [place] [address] [place] Monocytes/100 WBC (Bld) 10.8 % Normal [facility] Comment on above: Order Comment: Speci men Type: BLOOD SPECIMEN Ordering Facility: [facility] Address: [address] [place] [address] Performed By: #### 5 7021-8 #### [facility] CLIA [id number] [address] [place] [address] [place] Neutrophils (Bld) [#/Vol] 9.48 10*3/uL High 1.45-7.50 [facility] Comment on above: Order Comment: Speci men Type: BLOOD SPECIMEN Ordering Facility: [facility] Address: [address] [place] [address] Performed By: #### 5 7021-8 #### [facility] CLIA [id number] [address] [place] [address] [place] Neutrophils/100 WBC (Bld) 72.4 % Normal [facility] Comment on above: Order Comment: Speci men Type: BLOOD SPECIMEN Ordering Facility: [facility] Address: [address] [place] [address] Performed By: #### 5 7021-8 #### [facility] CLIA [id number] [address] [place] [address] [place] Nucleated RBC (Bld) [#/Vol] 10*3/uL Normal <0.01 [facility] Comment on above: Order Comment: Speci men Type: BLOOD SPECIMEN Ordering Facility: [facility] Address: [address] [place] [address] Performed By: #### 5 7021-8 #### [facility] CLIA [id number] [address] [place] [address] [place] Nucleated RBC/100 WBC (Bld) [Ratio] 0.0 /100 WBC Normal [facility] Comment on above: Order Comment: Speci men Type: BLOOD SPECIMEN Ordering Facility: [facility] Address: [address] [place] [address] Performed By: #### 5 7021-8 #### [facility] CLIA [id number] [address] [place] [address] [place] Platelet mean volume (Bld) [Entitic vol] 10.2 fL Normal 9.0-12.7 [facility] Comment on above: Order Comment: Speci men Type: BLOOD SPECIMEN Ordering Facility: [facility] Address: [address] [place] [address] Performed By: #### 5 7021-8 #### [facility] CLIA [id number] [address] [place] [address] [place] Platelets (Bld) [#/Vol] 901 10*3/uL High 150-400 [facility] Comment on above: Order Comment: Speci men Type: BLOOD SPECIMEN Ordering Facility: [facility] Address: [address] [place] [address] Performed By: #### 5 7021-8 #### [facility] CLIA [id number] [address] [place] [address] [place] RBC (Bld) [#/Vol] 4.56 10*6/uL Normal 4.20-6.00 [facility] Comment on above: Order Comment: Speci men Type: BLOOD SPECIMEN Ordering Facility: [facility] Address: [address] [place] [address] Performed By: #### 5 7021-8 #### [facility] CLIA [id number] [address] [place] [address] [place] WBC (Bld) [#/Vol] 13.08 10*3/uL High 3.70-11.[address] [facility] Comment on above: Order Comment: Speci men Type: BLOOD SPECIMEN Ordering Facility: [facility] Address: [address] [place] [address] Performed By: #### 5 7021-8 #### [facility] CLIA [id number] [address] [place] [id number] [facility] CNOVon 12-07-2023 CNOV Office Visit (FAMPWS ) HUSAM BARROW ([id number]) 1950 M Date Time Provider Department 12/07/23 3:00 PM [facility] During your visit today, we recorded the following information about you: Pulse Respiration Blood pressure Weight 56/minute 16/minute 128/70 91.5 kg Brien Singer MD 12/07/2023 3:41 PM Signed Chief Complaint Patient presents with: 6 Month Exam HPI Husam Potts Danial is a 73 year old male who presents here today for 6 month follow up. Goes to [place], [place] for the winter. No bowel, Gi, or urinary issus. Lipid/CAD: Is on ASA 81 mg daily. No longer using Lipitor as it was causing muscle stiffness and pain about 6 weeks ago. Pain improved off medication. Would prefer to stay off the medication. Cardiomyopathy: Taking Coreg 3.125 mg 1 pill BID and Losartan 25 mg daily. Denies checking BP at home, no chest pains, dizziness, or SOB. States that if he does get chest pains it is very minor. He has no restrictions. Is able to do hard work. If he gets SOB he just sits and relaxes, goes at his own pace. Cardio in [place] Dr. John. MAKENZIE/Depression: Stable with Wellbutrin 300 mg daily. Was following with Psych Dr. White till he retired. Still c/o some SOB ever since having COVID. This is not any worse. He states he gets cold all the time. Past medical history, appointments, medications, allergies reviewed. Previous Medical History PAST MEDICAL HISTORY Diagnosis Date Blood in stool Chewing tobacco use Coronary artery spasm (HCC) Hypertension 02/02/2010 Osteoarthritis, knee bilateral, seeing [facility] Overweight (BMI 25.0-29.9) Pure hypercholesterolemia Syncope 1999 x3 Unspecified asthma(493.90) Unspecified essential hypertension Previous Surgical History PAST SURGICAL HISTORY Procedure Laterality Date ARTHROSCOPY KNEE DIAGNOSTIC W/WO SYNOVIAL BX SPX Arthroscopy, knee COLONOSCOPY 2008 normal, repeat in 10 years COLONOSCOPY N/A 07/06/2022 COLONOSCOPY FLX DX W/COLLJ SPEC WHEN PFRMD 2003 Colonoscopy EGD W/O [facility] SPEC VARICIES INJ N/A 07/06/2022 PAST SURGICAL HISTORY OF 1998 heart cath PAST SURGICAL HISTORY OF 2005 repair fx left foearm plate and screw PAST SURGICAL HISTORY OF N/A 02/2021 Heart Cath in [place] TONSILLECTOMY AND ADENOIDECTOMY Family History FAMILY HISTORY Problem Relation Age of Onset Heart Mother CHF Patient Allergies ALLERGIES Allergen Reactions Toprol Xl [Metoprol* Other: See Comments General illness, felt lousy, GI upset Baycol Current Medications Current Outpatient Medications on File Prior to Visit Medication Sig buPROPion XL (WELLBUTRIN XL) 300 mg 24 hr tablet Take 1 tablet by mouth once daily. TAKE 1 TABLET BY MOUTH ONCE DAILY IN THE MORNING folic acid 1 mg tablet Take 2 tablets by mouth once daily. aspirin 81 mg cap Take 1 capsule by mouth once daily. carvedilol (COREG) 3.125 mg tablet Take 3.125 mg by mouth twice daily. losartan (COZAAR) 25 mg tablet Take 1 tablet by mouth once daily. atorvastatin (LIPITOR) 40 mg tablet Take 1 tablet by mouth daily at bedtime. No current facility-administered medications on file prior to visit. Social History Social History Tobacco Use Smoking status: Never Smokeless tobacco: Former Types: Chew Quit date: 01/12/2023 Tobacco comments: intermittently Vaping Use Vaping status: Never Used Substance Use Topics Alcohol use: Yes Alcohol/week: 1.0 standard drink of alcohol Types: 1 Glasses of Wine (5oz) per week Drug use: No EXAM: BP 128/70 Pulse (!) 56 Resp 16 Wt 91.5 kg (201 lb 11.5 oz) BMI 28.13 kg/m? General Appearance: Well appearing, alert, in no acute distress, well-hydrated, well nourished.. Lungs: Lungs clear to auscultation. No wheezing, rhonchi, rales.. Heart: RRR without murmur, gallop, or rubs. No ectopy. Health Maintenance List Hepatitis C Screening Never done Shingrix Vaccine(1 of 2) Never done DTaP,Tdap,Td Vaccine(2 - Td or Tdap) due on 10/10/2016 RSV Vaccine(1 - 1-dose 75+ series) Never done Influenza Vaccine(1) due on 08/11/2024 Covid-19 Vaccine( season) due on 12/06/2024 Annual PCP Team Chronic Disease Visit due on 06/06/2024 Diabetes Screening due on 11/20/2026 Lipid Screening due on 11/20/2028 Colorectal Cancer Screening due on 07/06/2032 Spirometry Completed Advance Directive Discussion Completed Pneumococcal Vaccine: 65+ Completed Data reviewed Appointment on 11/21/2023 Component Date Value Cholesterol, Total 11/21/2023 209 (H) Triglyceride 11/21/2023 174 (H) HDL Cholesterol 11/21/2023 34 (L) Non HDL Cholesterol 11/21/2023 175 (H) Fasting Time 11/21/2023 12 VLDL Cholesterol 11/21/2023 35 (H) TC:HDL Ratio 11/21/2023 6.15 (H) LDL Cholesterol 11/21/2023 140 (H) LDL:HDL Ratio 11/21/2023 4.12 (H) Protein, Total 11/21/2023 7.1 Albumin 11/21/2023 4 (more content not included)... Normal [facility] XR Chest PA and Lateralon IMPRESSION: Unremarkable exam with no acute radiographic abnormality. Salt Lifter: [facility] Transcribe Date/Time: Jan 30 2023 1:13P Dictated by : VICENTE PIMENTEL MD This examination was interpreted and the report reviewed and electronically signed by: VICENTE PIMENTEL MD on Jan 30 2023 1:14PM [facility] DIVISION OF RADIOLOGY * * *Final Report* * * DATE OF EXAM: Jan 30 2023 12:50PM WOX [id number] - XR CHEST 2V FRONTAL/LAT / PROCEDURE REASON: Acute cough * * * * Physician Interpretation * * * * EXAMINATION: CHEST RADIOGRAPH (2 VIEW FRONTAL & LATERAL) CLINICAL HISTORY: Acute cough MQ: XC2_6 EXAM DATE/TIME: 01/30/2023 12:50 PM COMPARISON: No relevant prior studies available. RESULT: Lines, tubes, and devices: None. Lungs and pleura: No consolidation. No lung mass. No pleural effusion. No pneumothorax. Cardiomediastinal silhouette: Normal cardiomediastinal silhouette. Bones and soft tissues: Unremarkable. DIVISION OF RADIOLOGY Provider, [facility] - 01/30/2023 * * *Final Report* * * DATE OF EXAM: Jan 30 2023 12:50PM WOX [id number] - XR CHEST 2V FRONTAL/LAT / PROCEDURE REASON: Acute cough * * * * Physician Interpretation * * * * EXAMINATION: CHEST RADIOGRAPH (2 VIEW FRONTAL & LATERAL) CLINICAL HISTORY: Acute cough MQ: XC2_6 EXAM DATE/TIME: 01/30/2023 12:50 PM COMPARISON: No relevant prior studies available. RESULT: Lines, tubes, and devices: None. Lungs and pleura: No consolidation. No lung mass. No pleural effusion. No pneumothorax. Cardiomediastinal silhouette: Normal cardiomediastinal silhouette. Bones and soft tissues: Unremarkable. IMPRESSION IMPRESSION: Unremarkable exam with no acute radiographic abnormality. [facility] Transcribe Date/Time: Jan 30 2023 1:13P Dictated by : VICENTE PIMENTEL MD This examination was interpreted and the report reviewed and electronically signed by: VICENTE PIMENTEL MD on Jan 30 2023 1:14PM EST [facility] Radiology Study observation (narrative) Jarrett Fajardo XR Chest PA and LateralOrder ed By: Cc Provider on 01-30-2023 [facility] SURGICAL PATHOLOGYon 023 Addendum Given the background of chronic gastritis a Helicobacter pylori immunostain was performed on block B1 and is negative for Helicobacter pylori organisms. Laboratory Developed Test (LDT) Disclaimer: Performance characteristics of immunohistochemical, immunofluorescent and chromogenic in-situ hybridization tests have been determined by the performing laboratory within [facility] s [facility] [place] ([facility], [facility], [facility], [facility], [facility], or [facility]) in a manner consistent with CLIA requirements. One or more of these tests have not been cleared or approved by the FDA. [facility] is regulated under CLIA as qualified to perform high-complexity testing. These tests are used for clinical purposes. They should not be regarded as investigational or for research. Positive and negative controls stain appropriately. [facility] Case Report Surgical Pathology Report Case: [id number] Authorizing Provider: Kaushik Ruiz MD Collected: 07/06/2022 11:41 AM Ordering Location: Ambulatory Surgery Received: 07/06/2022 01:55 PM Pathologist: Chemo Mathur MD Specimens: A) - DUODENUM BIOPSY B) - ANTRUM (STOMACH) BIOPSY, Antral bx for H/H C) - ESOPHAGUS BIOPSY, DISTAL D) - ESOPHAGUS MID BIOPSY, MID [facility] Diagnosis Comment B. There is no evide nce of intestinal metaplasia. A Helicobacter pylori immunostain will be performed and reported separately. [facility] FINAL DIAGNOSIS A. Duodenum, biopsy: - Duodenal mucosa with no significant diagnostic alteration. - No evidence of celiac disease or duodenitis. B. Gastric antrum, biopsy: - Chronic inactive gastritis, see comment. C, D. Esophagus, distal and mid, biopsies: - Squamous mucosa with no significant diagnostic alteration. - No evidence of esophagitis or eosinophilia. [facility] Gross Description A. DUODENUM BIOPSY Received in formalin is one piece of spear, soft tissue measuring 0.3 x 0.2 x 0.2 cm. Totally submitted in one cassette. B. ANTRUM (STOMACH) BIOPSY Received in formalin is one piece of spear, soft tissue measuring 0.3 x 0.2 x 0.2 cm. Totally submitted in one cassette. C. ESOPHAGUS BIOPSY Received in formalin is one piece of spear, soft tissue measuring 0.3 x 0.2 x 0.1 cm. Totally submitted in one cassette. D. ESOPHAGUS MID BIOPSY Received in formalin is one piece of spear, soft tissue measuring 0.4 x 0.2 x 0.2 cm. Totally submitted in one cassette. Gross examination performed at [facility], [address] [place] [address] [facility] 07/06/2022 8:17 PM [facility] Performing Lab Diagnostic interpretation performed at [facility], [address] [place] [address] CLIA# [id number] Tube Depatcher: Jose Luis Sorenson M.D. [facility] COLONOSCOPY DIAGNOSTICon [facility] EGD DIAGNOSTICon 07-06-2022 [facility] Absolute lymphocyte countOrd ered By: Paula Meyers on 06-24-2022 Lymphocytes Auto (Unsp spec) [#/Vol] 2.09 10*3/uL 0.83-4.51 [facility] Basophil percentageOrdered B y: Paula Meyers on 06-24-2022 Basophils/100 WBC (Bld) 0.6 % 0-1 [facility] Chloride [Moles/Vol] 110 mmol/L 98-107 [facility] Eosinophils/100 WBC (Bld) 3.2 % 0-5 [facility] Glucose [Mass/Vol] 108 mg/dL 74-106 [facility] Comment on above: Fasting Glucose resu lt from 100 to 125 mg/dL suggests IMPAIRED HOMEOSTASIS per A.D.A. criteria. Neutrophils (Bld) [#/Vol] 5.5 10*3/uL 2.0-7.7 [facility] Neutrophils/100 WBC (Bld) 63.1 % 47-70 [facility] Potassium [Moles/Vol] 4.5 mmol/L 3.5-5.1 [facility] Sodium [Moles/Vol] 143 mmol/L 136-145 [facility] WBC (Bld) [#/Vol] 8.7 10*3/uL 4.4-11.0 [facility] Blood erythrocytes count (nu mber/volume)Ordered By: Paula Meyers on 06-24-2022 RBC (Bld) [#/Vol] 4.44 10*6/uL 4.6-6.2 [facility] Blood hemoglobin measurement (mass/volume)Ordered By: Paula Meyers on 06-24-2022 Hemoglobin (Bld) [Mass/Vol] 14.0 g/dL 13.0-16.5 [facility] Blood lymphocytes/100 leukoc ytesOrdered By: Paula Meyers on 06-24-2022 Lymphocytes/100 WBC (Bld) 24.1 % 19-41 [facility] Blood monocytes/100 leukocyt esOrdered By: Paula Meyers on 06-24-2022 Monocytes/100 WBC (Bld) 8.3 % 0-10 [facility] Blood platelet mean volumeOr dered By: Paula Meyers on 06-24-2022 Platelet mean volume (Bld) [Entitic vol] 9.9 fL 6.2-12.0 [facility] Determination of erythrocyte mean corpuscular volume (MCV)Ordered By: Paula Meyers on 06-24-2022 MCV (RBC) [Entitic vol] 96.2 fL 80-94 [facility] Hematocrit Auto (Bld) [Volum e fraction]Ordered By: Paula Meyers on 06-24-2022 Hematocrit (Bld) [Volume fraction] 42.7 % 40-54 [facility] Laboratory - Chemistry and C hemistry - challengeOrdered By: Paula Meyers on 06-24-2022 CO2 [Moles/Vol] 29.0 mmol/L 21.0-32.0 [facility] Urea nitrogen/Creatinine [Mass ratio] 12.9 mg/mg 10-20 [facility] Laboratory - Hematology and Cell countsOrdered By: Paula Meyers on 06-24-2022 Erythrocyte distribution width (RBC) [Entitic vol] 49.0 fL 35.1-43.9 [facility] Erythrocyte distribution width (RBC) [Ratio] 13.7 % 11.6-14.6 [facility] Immature granulocytes/100 WBC (Bld) 0.700 % 0.0-0.9 [facility] Comment on above: IG% - Immature Granu locytes (promyelocytes, myelocytes and metamyelocytes) > 1% indicates that a LEFT SHIFT is Present. MCH (RBC) [Entitic mass] 31.5 pg 27.0-32.0 [facility] Nucleated RBC/100 WBC (Bld) [Ratio] 0 % 0-5 [facility] Lower GI hemoglobin IA Ql (S tl)Ordered By: Paula Meyers on 06-24-2022 Stool Occult Blood (DANIELLE) Positive [facility] MCHC Auto (RBC) [Mass/Vol]Or dered By: Paula Meyers on 06-24-2022 MCHC (RBC) [Mass/Vol] 32.8 g/dL 32-36 [facility] No Panel InformationOrdered By: Paula Meyers on 06-24-2022 Estimated Creatinine Clearance Calc 53.08 ml/min [facility] Estimated GFR (MDRD) Amer 68 mL/min >60 [facility] Comment on above: GFR Calc Estimated GFR (MDRD) Non-Af Amer 56 mL/min >60 [facility] Comment on above: Non- GFR Calc Platelets bldOrdered By: Kayode Meyers on 06-24-2022 Platelets (Bld) [#/Vol] 519 10*3/uL 150-450 [facility] Serum or plasma calcium tracy urement (mass/volume)Ordered By: Paula Meyers on 06-24-2022 Calcium [Mass/Vol] 8.5 mg/dL 8.5-10.1 [facility] Serum or plasma creatinine m easurement (mass/volume)Ordered By: Paula Meyers on 06-24-2022 Creatinine [Mass/Vol] 1.32 mg/dL 0.70-1.30 [facility] Comment on above: The validity of the calculated GFR & GFRAA in patients over 70 years has not been determined. Clinical correlation is essential. Serum or plasma urea nitroge n measurement (mass/volume)Ordered By: Paula Meyers on 06-24-2022 Urea nitrogen [Mass/Vol] 17 mg/dL 7-18 [facility] Thin prep Papanicolaou smear with manual screeningOrdered By: Paula Meyers on 06-24-2022 Thin prep Papanicolaou smear with manual screening 4 5-15 [facility] Vital Signs Date Time Vital Sign Value Performing Clinician Faci lity 11-07-2024 10:39-0400 Body temperature 98.1 [degF] Dr. Brien Singer MD Work Phone: [facility] 11-07-2024 10:39-0400 Diastolic blood pressure 79 mm[Hg] Dr. Brien Singer MD Work Phone: [facility] 11-07-2024 10:39-0400 Heart rate 57 /min Dr. Brien Singer MD Work Phone: [facility] 11-07-2024 10:39-0400 Respiratory rate 16 /min Dr. Brien Singer MD Work Phone: [facility] 11-07-2024 10:39-0400 SaO2% (BldA) [Mass fraction] 96 % Dr. Brien Singer MD Work Phone: [facility] 11-07-2024 10:39-0400 Systolic blood pressure 129 mm[Hg] Dr. Brien Singer MD Work Phone: [facility] 11-06-2024 14:30-0400 Body height 180.[address] Brien Singer MD Work Phone: [facility] 11-06-2024 14:30-0400 Body mass index (BMI) [Ratio] 26.2 kg/m2 Dr. Brien Singer MD Work Phone: [facility] 11-06-2024 14:30-0400 Body weight 85.[address] Brien Singer MD Work Phone: [facility] 10-17-2024 09:55-0400 Body mass index (BMI) [Ratio] 26.98 kg/m2 Alverto Shanei DO Work Phone: [facility] 10-17-2024 09:55-0400 Body temperature 97 [degF] Alverto Masci DO Work Phone: [facility] 10-17-2024 09:55-0400 Body weight 83.46 kg Alverto Masci DO Work Phone: [facility] 10-17-2024 09:55-0400 Diastolic blood pressure 67 mm[Hg] Alverto Masci DO Work Phone: [facility] 10-17-2024 09:55-0400 Heart rate 52 /min Alverto Masci DO Work Phone: [facility] 10-17-2024 09:55-0400 SaO2% (BldA) [Mass fraction] 97 % Alverto Edwards DO Work Phone: [facility] 10-17-2024 09:55-0400 Systolic blood pressure 101 mm[Hg] Alverto Grace DO Work Phone: [facility] 08-03-2024 08:40-0400 Body temperature 98.1 [degF] Dr. Brien Singer MD Work Phone: [facility] 08-03-2024 08:40-0400 Diastolic blood pressure 78 mm[Hg] Dr. Brien Singer MD Work Phone: [phone] [address] [place] [id number] 08-03-2024 08:40-0400 Heart rate 64 /min Dr. Brien Singer MD Work Phone: 0(955)260-771034 [place] [address] 08-03-2024 08:40-0400 Respiratory rate 16 /min Dr. Brien Singer MD Work Phone: 5(113)127-109534 [place] [address] 08-03-2024 08:40-0400 SaO2% (BldA) [Mass fraction] 97 % Dr. Brien Singer MD Work Phone: 5(448)601-730934 [place] [address] 08-03-2024 08:40-0400 Systolic blood pressure 147 mm[Hg] Dr. Brien Singer MD Work Phone: 7(503)706-773812 [place] [address] 08-03-2024 05:12-0400 Body mass index (BMI) [Ratio] 25.6 kg/m2 Dr. Brien Singer MD Work Phone: 1(670)552-758912 [place] [address] 08-03-2024 05:12-0400 Body weight 83.[address] Brien Singer MD Work Phone: 2(553)045-886834 [place] [address] 08-03-2024 02:26-0400 Body height 180.[address] Brien Singer MD Work Phone: 7(266)704-405634 [place] [address] 08-03-2024 02:12-0400 Body temperature 98.7 [degF] Dr. Brien Singer MD Work Phone: 9(799)758-033634 [place] [address] 08-03-2024 02:12-0400 Diastolic blood pressure 89 mm[Hg] Dr. Brien Singer MD Work Phone: [facility] 08-03-2024 02:12-0400 Heart rate 45 /min Dr. Brien Singer MD Work Phone: [facility] 08-03-2024 02:12-0400 Respiratory rate 15 /min Dr. Brien Sinegr MD Work Phone: 2(681)482-204912 [place] [address] 08-03-2024 02:12-0400 SaO2% (BldA) [Mass fraction] 95 % Dr. Brien Singer MD Work Phone: 2(862)398-545434 [place] [address] 08-03-2024 02:12-0400 Systolic blood pressure 132 mm[Hg] Dr. Brien Singer MD Work Phone: 6(101)857-941134 [place] [address] 08-02-2024 23:32-0400 Body height 180.[address] Brien Singer MD Work Phone: 3(618)624-863212 [place] [address] 08-02-2024 23:32-0400 Body mass index (BMI) [Ratio] 25.7 kg/m2 Dr. Brien Singer MD Work Phone: [facility] 08-02-2024 23:32-0400 Body weight 83.[address] Brien Singer MD Work Phone: [facility] 07-08-2024 14:22-0400 Body height 175.9 cm Alverto Edwards DO Work Phone: [facility] 07-08-2024 14:22-0400 Body mass index (BMI) [Ratio] 27.93 kg/m2 Alverto Lynni DO Work Phone: [facility] 07-08-2024 14:22-0400 Body temperature 98.1 [degF] Alverto Lynni DO Work Phone: [facility] 07-08-2024 14:22-0400 Body weight 86.41 kg Alverto Lynni DO Work Phone: [facility] 07-08-2024 14:22-0400 Diastolic blood pressure 78 mm[Hg] Alverto Lynni DO Work Phone: [facility] 07-08-2024 14:22-0400 Heart rate 57 /min Alverot Shanei DO Work Phone: [facility] 07-08-2024 14:22-0400 SaO2% (BldA) [Mass fraction] 97 % Alverto Shanei DO Work Phone: [facility] 07-08-2024 14:22-0400 Systolic blood pressure 131 mm[Hg] Alverto Shanei DO Work Phone: [facility] 06-20-2024 13:48-0400 Diastolic blood pressure 78 mm[Hg] Edwin Jose A LIVE OUT NANNY.BUSINESS DATA ANALYST Work Phone: [facility] 06-20-2024 13:48-0400 Systolic blood pressure 136 mm[Hg] Edwin Jose A LIVE OUT NANNY.BUSINESS DATA ANALYST Work Phone: [facility] 06-20-2024 13:21-0400 Body mass index (BMI) [Ratio] 26.5 kg/m2 Edwin Jose A LIVE OUT NANNY.BUSINESS DATA ANALYST Work Phone: [facility] 06-20-2024 13:21-0400 Body weight 86.18 kg Edwin Jose A LIVE OUT NANNY.BUSINESS DATA ANALYST Work Phone: [facility] 06-20-2024 13:21-0400 Heart rate 50 /min Edwin Jose A LIVE OUT NANNY.BUSINESS DATA ANALYST Work Phone: [facility] 06-20-2024 13:21-0400 Respiratory rate 16 /min Edwin Jose A LIVE OUT NANNY.BUSINESS DATA ANALYST Work Phone: [facility] 06-20-2024 13:21-0400 SaO2% (BldA) [Mass fraction] 98 % Edwin Jose A LIVE OUT NANNY.BUSINESS DATA ANALYST Work Phone: [facility] 12-13-2023 15:36-0400 Body mass index (BMI) [Ratio] 27.49 kg/m2 Dileep You MD Work Phone: [facility] 12-13-2023 15:36-0400 Body temperature 98.2 [degF] Dileep You MD Work Phone: [facility] 12-13-2023 15:36-0400 Body weight 89.4 kg Dileep You MD Work Phone: [facility] 12-13-2023 15:36-0400 Diastolic blood pressure 91 mm[Hg] Dileep You MD Work Phone: [facility] 12-13-2023 15:36-0400 Heart rate 78 /min Dileep You MD Work Phone: [facility] 12-13-2023 15:36-0400 Respiratory rate 22 /min Dileep You MD Work Phone: [facility] 12-13-2023 15:36-0400 SaO2% (BldA) [Mass fraction] 97 % Dileep You MD Work Phone: [facility] 12-13-2023 15:36-0400 Systolic blood pressure 123 mm[Hg] Dileep You MD Work Phone: [facility] 12-07-2023 15:01-0400 Body mass index (BMI) [Ratio] 28.13 kg/m2 Brien Singer MD Work Phone: [facility] 12-07-2023 15:01-0400 Body weight 91.5 kg Brien Singer MD Work Phone: [facility] 12-07-2023 15:01-0400 Diastolic blood pressure 70 mm[Hg] Brien Singer MD Work Phone: [facility] 12-07-2023 15:01-0400 Heart rate 56 /min Brien Singer MD Work Phone: [facility] 12-07-2023 15:01-0400 Respiratory rate 16 /min Brien Singer MD Work Phone: [facility] 12-07-2023 15:01-0400 Systolic blood pressure 128 mm[Hg] Brien Singer MD Work Phone: [facility] 06-07-2023 08:07-0400 Body mass index (BMI) [Ratio] 28.65 kg/m2 Brien Singer MD Work Phone: [facility] 06-07-2023 08:07-0400 Body weight 93.17 kg Brien Singer MD Work Phone: [facility] 06-07-2023 08:07-0400 Diastolic blood pressure 80 mm[Hg] Brien Singer MD Work Phone: [facility] 06-07-2023 08:07-0400 Heart rate 50 /min Brien Singer MD Work Phone: [facility] 06-07-2023 08:07-0400 Respiratory rate 16 /min Brien Singer MD Work Phone: [facility] 06-07-2023 08:07-0400 SaO2% (BldA) [Mass fraction] 96 % Brien Singer MD Work Phone: [facility] 06-07-2023 08:07-0400 Systolic blood pressure 130 mm[Hg] Brien Singer MD Work Phone: [facility] 12-01-2022 08:27-0400 Body weight 90.08 kg Brien Singer MD Work Phone: [facility] 12-01-2022 08:27-0400 Diastolic blood pressure 78 mm[Hg] Brien Singer MD Work Phone: [facility] 12-01-2022 08:27-0400 Heart rate 60 /min Brien Singer MD Work Phone: [facility] 12-01-2022 08:27-0400 Respiratory rate 16 /min Brien Singer MD Work Phone: [facility] 12-01-2022 08:27-0400 Systolic blood pressure 120 mm[Hg] Brien Singer MD Work Phone: [facility] 07-06-2022 12:47-0400 Diastolic blood pressure 80 mm[Hg] Kaushik Ruiz MD Work Phone: [facility] 07-06-2022 12:47-0400 Heart rate 50 /min Kaushik Ruiz MD Work Phone: [facility] 07-06-2022 12:47-0400 Respiratory rate 14 /min Kaushik Ruiz MD Work Phone: [facility] 07-06-2022 12:47-0400 SaO2% (BldA) [Mass fraction] 93 % Kaushik Ruiz MD Work Phone: [facility] 07-06-2022 12:47-0400 Systolic blood pressure 147 mm[Hg] Kaushik Ruiz MD Work Phone: [facility] 07-06-2022 11:17-0400 Body temperature 97 [degF] Kaushik Ruiz MD Work Phone: [facility] 07-06-2022 11:17-0400 Body weight 91.7 kg Kaushik Ruiz MD Work Phone: [facility] 06-24-2022 13:37-0400 Diastolic blood pressure 83 mm[Hg] [facility] 06-24-2022 13:37-0400 Heart rate 58 /min [facility] 06-24-2022 13:37-0400 Respiratory rate 18 /min [facility] 06-24-2022 13:37-0400 SaO2% (BldA) [Mass fraction] 99 % [facility] 06-24-2022 13:37-0400 Systolic blood pressure 143 mm[Hg] [facility] 06-24-2022 11:05-0400 Body height 180.34 cm [facility] 06-24-2022 11:05-0400 Body mass index (BMI) [Ratio] 27.6 kg/m2 [facility] 06-24-2022 11:05-0400 Body temperature 97.1 [degF] [facility] 06-24-2022 11:05-0400 Body weight 89.85 kg [facility] 06-01-2022 08:54-0400 Body weight 90.95 kg Brien Singer MD Work Phone: [facility] 06-01-2022 08:54-0400 Diastolic blood pressure 80 mm[Hg] Brien Singer MD Work Phone: [facility] 06-01-2022 08:54-0400 Heart rate 66 /min Brien Singer MD Work Phone: [facility] 06-01-2022 08:54-0400 Respiratory rate 16 /min Brien Singer MD Work Phone: [facility] 06-01-2022 08:54-0400 Systolic blood pressure 128 mm[Hg] Brien Singer MD Work Phone: [facility] 11-28-2021 09:00-0400 Body weight 87.05 kg Brien Singer MD Work Phone: [facility] 11-28-2021 09:00-0400 Diastolic blood pressure 70 mm[Hg] Brien Singer MD Work Phone: [facility] 11-28-2021 09:00-0400 Heart rate 68 /min Brien Singer MD Work Phone: [facility] 11-28-2021 09:00-0400 Respiratory rate 16 /min Brien Singer MD Work Phone: [facility] 11-28-2021 09:00-0400 Systolic blood pressure 118 mm[Hg] Brien Singer MD Work Phone: [facility] 05-30-2021 09:11-0400 Body weight 91.63 kg Brien Singer MD Work Phone: [facility] 05-30-2021 09:11-0400 Diastolic blood pressure 84 mm[Hg] Brien Singer MD Work Phone: [facility] 05-30-2021 09:11-0400 Heart rate 52 /min Brien Singer MD Work Phone: [facility] 05-30-2021 09:11-0400 Respiratory rate 16 /min Brien Singer MD Work Phone: [facility] 05-30-2021 09:11-0400 Systolic blood pressure 132 mm[Hg] Brien Singer MD Work Phone: [facility] Encounters Encounter Date Encounter Type Care Provider Facility Start: 11-24-2024 End: 11-24-2024 [facility] Start: 11-11-2024 Non-patient / Non-visit Dr. Lance Garrett MD -[facility] Start: 11-11-[address] Brien villatoro MD Work Phone: -[facility] Start: 11-07-2024 Non-patient / Non-visit Dr. Scott Gunn MD -[facility] Work Phone: Start: 11-06-2024 ambulatory Brien Singer Facilit y:[facility] Start: 11-06-2024 Non-patient / Non-visit Dr. Clinton espinosa MD -[facility] Start: 11-06-2024 End: 11-07-2024 Evaluation and management of inpatient Dr. Scott Gunn MD -Progressive Care Unit Work Phone: Start: 11-06-2024 ambulatory Katty Mcbride Facility:[facility] Start: 11-06-2024 Non-patient / Non-visit Dr. Katty Mcbride DO -[facility] Work Phone: Start: 10-17-2024 End: 10-17-2024 Patient encounter procedure Alverto Edwards DO Work Phone: Hematology/Oncology Start: 10-17-2024 End: 10-17-2024 ambulatory Alverto Edwards DO Work Phone: Hematology/Oncology Comment on above: Essential thrombocyt osis (HCC) (Primary Dx) Start: 08-19-2024 End: 08-19-2024 ambulatory BRIEN SINGER Facility:[facility] Start: 08-18-2024 End: 08-18-2024 Telephone encounter Alverto Edwards DO Work Phone: Hematology/Oncology Comment on above: Patient Question Start: 08-05-2024 End: 08-05-2024 Telephone encounter Alverto Edwards DO Work Phone: Hematology/Oncology Comment on above: Follow Up Start: 08-05-2024 End: 08-05-2024 ambulatory ALVERTO Lucero SHANEI Facility:[facility] Start: 08-04-2024 End: 08-04-2024 Refill Alverto Lucero Lynni DO Work Phone: Hematology/Oncology Comment on above: Refill Request Start: 08-03-2024 End: 08-03-2024 ambulatory Brien Singer Facility:[facility] Start: 08-03-2024 End: 08-03-2024 Evaluation and management of inpatient Dr. Jasper Morrison DO -Progressive Care Unit Work Phone: Start: 08-03-2024 End: 08-03-[address] Brien Singer MD Work Phone: [facility] Work Phone: Start: 07-22-2024 End: 07-22-2024 Telephone encounter Alverto Lynni DO Work Phone: Hematology/Oncology Comment on above: Results Start: 07-22-2024 End: 07-22-2024 ambulatory ALVERTO Lucero SHANEI Facility:[facility] Start: 07-15-2024 End: 07-15-2024 Telephone encounter Alverto A Masci DO Work Phone: Hematology/Oncology Comment on above: Results Start: 07-15-2024 End: 07-15-2024 ambulatory ALVERTO A MASCI Facility:[facility] Start: 07-10-2024 End: 07-10-2024 Telephone encounter Alverto A Masci DO Work Phone: Hematology/Oncology Comment on above: Appointment Start: 07-09-2024 End: 07-09-2024 Telephone encounter Alverto A Masci DO Work Phone: Hematology/Oncology Comment on above: Results Start: 07-08-2024 End: 07-08-2024 Patient encounter procedure Alverto A Masci DO Work Phone: Hematology/Oncology Start: 07-08-2024 End: 07-08-2024 ambulatory Alverto A Masci DO Work Phone: Hematology/Oncology Comment on above: Essential thrombocyt osis (HCC) (Primary Dx); Myelofibrosis (HCC); Thrombocytosis Start: 06-24-2024 End: 06-24-2024 Telephone encounter Edwin Naranjo APRN.BUSINESS DATA ANALYST Work Phone: [facility] Comment on above: Medication Problem Start: 06-20-2024 End: 06-20-2024 Telephone encounter Kwaku Forrester [address] Start: 06-20-2024 End: 06-20-2024 Office outpatient visit 25 minutes Edwin Naranjo APRN.BUSINESS DATA ANALYST Work Phone: [facility] [place] Comment on above: Nonischemic cardiomy opathy (HCC) (Primary Dx); Anxiety with depression; Leukocytosis, unspecified type; Thrombocytosis; Mixed hyperlipidemia; Stage 3a chronic kidney disease (HCC); Folate deficiency; Heart murmur Start: 06-20-2024 End: 06-23-2024 ambulatory BRIEN Miguelina SINGER Facility:[facility] Start: 06-16-2024 End: 06-16-2024 [facility] Start: 01-07-2024 End: 01-07-2024 Telephone encounter Brien Singer MD Work Phone: [facility] [place] Comment on above: Faxed to Dori pedersen Start: 12-20-2023 End: 12-20-2023 Telephone encounter Brien Singer MD Work Phone: [facility] [place] Comment on above: Patient Request Start: 12-13-2023 End: 12-13-2023 ambulatory BRIEN SINGER Facility:[facility] Start: 12-13-2023 End: 12-13-2023 Office outpatient visit 15 minutes Dileep You MD Work Phone: [facility] Comment on above: Acute cough (Primary Dx) Start: 12-13-2023 End: 12-14-2023 Telephone encounter Brien Singer MD Work Phone: [facility] [place] Comment on above: Results Start: 12-12-2023 End: 12-12-2023 ambulatory BRIEN SINGER Facility:[facility] Start: 12-07-2023 End: 12-07-2023 Patient encounter procedure Brien Singer MD Work Phone: [facility] Comment on above: Mixed hyperlipidemia (Primary Dx); Anxiety with depression; Nonischemic cardiomyopathy (HCC); Coronary artery spasm (HCC); Mild intermittent asthma without complication; Thrombocytosis Start: 12-07-2023 End: 12-10-2023 ambulatory Brien Singer MD Work Phone: [facility] [place] Start: 06-07-2023 End: 06-07-2023 Patient encounter procedure Brien Singer MD Work Phone: [facility] Comment on above: Nonischemic cardiomy opathy (HCC) (Primary Dx); Anxiety with depression; Coronary artery spasm (HCC); Mixed hyperlipidemia Start: 01-30-2023 End: 01-30-2023 Subsequent hospital visit by physician Aleta [facility] Work Phone: Radiology Comment on above: Acute cough [R05.1] Start: 12-01-2022 End: 12-01-2022 Patient encounter procedure Brien Singer MD Work Phone: [facility] Comment on above: Essential hypertensi on (Primary Dx); Mixed hyperlipidemia; Anxiety with depression; Coronary artery spasm (HCC); Nonischemic cardiomyopathy (HCC); Elevated liver enzymes Start: 07-06-2022 End: 07-06-2022 Subsequent hospital visit by physician Kaushik Ruiz MD Work Phone: Ambulatory Surgery Comment on above: Dark stools [R19.5] Start: 06-24-2022 End: 06-24-2022 [facility] Start: 06-24-2022 End: 06-24-2022 Patient encounter procedure Yazmin Whitley APRN.CNP Work Phone: [facility] Comment on above: Black stool (Primary Dx) Start: 06-01-2022 End: 06-01-2022 Patient encounter procedure Brien Singer MD Work Phone: [facility] Comment on above: Nonischemic cardiomy opathy (HCC) (Primary Dx); Screening for colon cancer; Mixed hyperlipidemia; Chewing tobacco use; Anxiety with depression Start: 12-28-2021 Refill Brien cheng MD Work Phone: [facility] Comment on above: Refill Request Start: 11-28-2021 End: 11-28-2021 Patient encounter procedure Brien Singer MD Work Phone: [facility] Comment on above: Mixed hyperlipidemia (Primary Dx); Chewing tobacco use; Coronary artery spasm (HCC); Need for influenza vaccination; Essential hypertension; MATUTE (dyspnea on exertion) Start: 05-30-2021 End: 05-30-2021 Patient encounter procedure Brien Singer MD Work Phone: [facility] Comment on above: Essential hypertensi on (Primary Dx); Mixed hyperlipidemia; Coronary artery spasm (HCC); MATUTE (dyspnea on exertion); Nonischemic cardiomyopathy (HCC) Start: 05-20-2021 Telephone encounter Brien paul MD Work Phone: [facility] Comment on above: Lab Orders Procedures Date Procedure Procedure Detail Performing Clinician Start: 11-07-2024 D-dimer assay, quantitative Dr. Brien Singer MD Work Phone: Comment on above: CRITICAL VALUE [facility]/07[facility]24 0 546 Moncho Watkins.RESULTS READ BACK BY SAME. D-Dimer ELEVATED (>0.49): Additional studies and clinicalassessments are indicated to conclude diagnosis of:Deep Vein Thrombosis (DVT) or Pulmonary Embolism (PE) Start: 11-07-[address] Brien Singer MD Work Phone: Start: 11-07-2024 Serum inorganic phosphate measurement Dr. Brien Singer MD Work Phone: Start: 11-06-2024 SARS-CoV-2, Influenza & RSV (PCR) Dr. Allan Singer MD Work Phone: Start: 11-06-2024 Urnls dip stick/tablet reagent auto microscopy Dr. Brien Singer MD Work Phone: Start: 11-06-2024 Plain chest X-ray Dr. Brien Singer MD Work Phone: Start: 11-06-2024 CT of head without contrast Dr. Brien Singer MD Work Phone: Start: 08-03-2024 CT of head without contrast Dr. Brien Singer MD Work Phone: Start: 08-03-[address] Brien Singer MD Work Phone: Start: 08-03-[address] Brien Singer MD Work Phone: Start: 08-03-2024 Serum inorganic phosphate measurement Dr. Brien Singer MD Work Phone: Start: 08-03-2024 Urnls dip stick/tablet reagent auto microscopy Dr. Brien Singer MD Work Phone: Start: 08-02-2024 Plain chest X-ray Dr. Brien Singer MD Work Phone: Start: 08-02-[address] Brien Singer MD Work Phone: Start: 06-16-2024 Lipid 1995 panel - Serum or Plasma Edwin Naranjo APRN.CNP Work Phone: Start: 11-21-2023 Lipid 1996 panel - Serum or Plasma Brien Singer MD Work Phone: Start: 06-01-2023 Lipid 1995 panel - Serum or Plasma Brien Singer MD Work Phone: Start: 01-30-2023 Radiologic exam chest 2 views Amilcar ALVAREZ Work Phone: Start: 11-25-2022 Lipid 1995 panel - Serum or Plasma Brien Singer MD Work Phone: Start: 07-06-2022 Esophagogastroduodenoscopy transoral diagnostic Wendy Yun PA-C Work Phone: Start: 07-06-2022 Colonoscopy flx dx w/collj spec when pfrmd Wendy Yun PA-C Work Phone: Start: 07-06-2022 Level iv surg pathology gross&microscopic exam Kaushik Ruiz MD Work Phone: Start: 07-06-2022 Colonoscopy Brien Singer MD Work Phone: Start: 11-28-2021 INFLUENZA SEASONAL QUADRIVALENT HIGH DOSE AGE 65+ Brien Sinegr MD Work Phone: Start: 11-16-2020 Adult depression screening assessment Brien Singer MD Work Phone: Start: 07-23-2010 Colonoscopy Brien Singer MD Work Phone: Measurement of occul t blood in stool specimen using immunoassay Plan of Treatment Date Care Activity Detail Author Start: 07-06-2032 Colonoscopy Colonoscopy [facility] Start: 07-06-2032 Colorectal Cancer Screening Colorectal Cancer Screening [facility] Start: 07-06-2032 Screening for malign ant neoplasm of colon [facility] Start: 06-16-2029 Lipid panel Lipid Screening [facility] Start: 11-20-2028 Lipid panel Lipid Screening [facility] Start: 05-31-2028 Lipid panel Lipid Screening [facility] Start: 11-26-2027 Lipid 1996 panel - S delisa or Plasma Lipid Screening [facility] Start: 06-17-2027 Diabetes Screening Diabetes Screenin [facility] Start: 05-31-2027 LIPID SCREEN LIPID SCREEN [facility] Start: 11-25-2026 LIPID SCREEN LIPID SCREEN [facility] Start: 11-20-2026 Diabetes Screening Diabetes Screenin [facility] Start: 05-31-2026 Diabetes Screening Diabetes Screenin g [facility] Start: 05-24-2026 LIPID SCREEN LIPID SCREEN [facility] Start: 11-25-2025 Diabetes Screening Diabetes Screenin g [facility] Start: 10-17-2025 [facility] Start: 08-05-2025 Complete blood count [facility] Start: 07-22-2025 Complete blood count Hemoglobin/[facility]obo [facility] Start: 07-15-2025 Complete blood count Hemoglobin/Lobo tocnyt [facility] Start: 07-08-2025 Complete blood count [facility] Start: 06-20-2025 Annual PCP Team Handle Assembler kayode Disease Visit Annual PCP Team Chronic Disease Visit [facility] Start: 06-16-2025 Complete blood count Hemoglobin/Lobo tocrit [facility] Start: 06-16-2025 Creatinine measurement Serum Creatin ine [facility] Start: 05-30-2025 DIABETES SCREEN DIABETES SCREEN [facility] Start: 12-12-2024 End: 12-12-2024 [facility] Comment on above: CBC, CMP, iron studi es, B12, MMA and serum folate [facility] Start: 12-06-2024 Annual PCP Team Handle Assembler kayode Disease Visit Annual PCP Team Chronic Disease Visit [facility] Start: 12-06-2024 Covid-19 Vaccine () Covid-19 Vaccine () [facility] Comment on above: Postponed from 10/13 (Declined at this time) Start: 11-25-2024 DIABETES SCREEN DIABETES SCREEN [facility] Start: 11-24-2024 End: 11-24-2024 Patient encounter procedure 11/24/2024 1:20 PM EDT Office Visit [facility] [address] [place], [place] [id number] Brien Singer MD [address] [place] [id number] 6 month follow up [facility] [place] Comment on above: 6 month follow up Start: 11-21-2024 End: 03-22-2025 CBC W Auto Differential panel - Blood COMPLETE BLOOD COUNT AND DIFFERENTIAL Lab Routine Thrombocytosis Expected: 11/21/2024 (Approximate), Expires: 03/22/2025 [facility] Comment on above: Expected: 11/21/2024 (Approximate), Expires: 03/22/2025 Start: 11-21-2024 End: 03-22-2025 Comprehensive metabolic 2000 panel - Serum or Plasma COMPREHENSIVE METABOLIC PANEL Lab Routine Mixed hyperlipidemia Stage 3a chronic kidney disease (HCC) Expected: 11/21/2024 (Approximate), Expires: 03/22/2025 [facility] Work Phone: Comment on above: Expected: 11/21/2024 (Approximate), Expires: 03/22/2025 Start: 11-21-2024 End: 03-22-2025 Folate [Mass/volume] in Serum or Plasma FOLATE, SERUM Lab Routine Folate deficiency Expected: 11/21/2024 (Approximate), Expires: 03/22/2025 [facility] Comment on above: Expected: 11/21/2024 (Approximate), Expires: 03/22/2025 Start: 11-21-2024 End: 03-22-2025 Lipid 1996 panel - Serum or Plasma LIPID PANEL, FASTING Lab Routine Mixed hyperlipidemia Expected: 11/21/2024 (Approximate), Expires: 03/22/2025 [facility] Comment on above: Expected: 11/21/2024 (Approximate), Expires: 03/22/2025 Start: 11-13-2024 LIPID SCREEN LIPID SCREEN [facility] Start: 11-11-2024 Non-patient / Non-visit Non-patient / Non-visit [facility] Start: 11-07-2024 Patient discharge [facility] Start: 11-06-2024 Following clinical p athway protocol [facility] Start: 11-06-2024 Notification of physician [facility] Start: 11-06-2024 Patient education [facility] Start: 11-06-2024 Provision of activit y privileges [facility] Start: 11-06-2024 Pulse taking [facility] Start: 11-06-2024 Taking patient vital signs [facility] Start: 11-06-2024 Wound care [facility] Start: 11-06-2024 End: 11-06-2024 [facility] Start: 11-06-2024 Assessment of risk o f venous thromboembolism [facility] Start: 11-06-2024 Catheterization of vein [facility] Start: 11-06-2024 Incentive spirometry [facility] Start: 11-06-2024 Inhalation therapy procedure [facility] Start: 11-06-2024 Insertion of cathete r into peripheral vein [facility] Start: 11-06-2024 Measuring intake and output [facility] Start: 11-06-2024 Oxygen therapy [facility] Start: 11-06-2024 Providing care accor ding to standard [facility] Start: 11-06-2024 Referral to cryogenic transport driver [facility] Start: 11-06-2024 Referral to service [facility] Start: 11-06-2024 Tobacco use cessatio n education [facility] Start: 11-06-2024 Admission procedure [facility] Start: 11-06-2024 Cardiac catheterization [facility] Start: 11-06-2024 [facility] Start: 10-13-2024 Influenza vaccination [facility] Start: 10-08-2024 End: 10-08-2024 ambulatory 10/08/2024 8:30 AM EDT Visit (SP) Office Hematology/Oncology [address] [facility] [place] [address] Alverto Edwards DO [address] [place] [address] 3 MO OV* LABS EARLY Hematology/Oncology Comment on above: 3 MO OV* LABS EARLY Start: 08-19-2024 End: 08-19-2024 ambulatory 08/19/2024 8:00 AM EDT Results Only [facility] [address] [facility] [place] [address] (SO)CBC* [facility] Comment on above: (SO)CBC* Start: 08-11-2024 Influenza vaccination Influenza Vacc ine (#1) [facility] Comment on above: Postponed from 10/13 (Declined at this time) Start: 08-03-2024 Bacteria identified in Urine by Culture Urine Culture [facility] Start: 08-03-2024 Patient discharge [facility] Start: 08-03-2024 Serum inorganic phos phate measurement [facility] Start: 08-03-2024 Thyroid stimulating hormone measurement [facility] Start: 08-03-2024 Application of intermittent pneumatic compression device [facility] Start: 08-03-2024 Assessment of risk o f venous thromboembolism [facility] Start: 08-03-2024 Incentive spirometry [facility] Start: 08-03-2024 Insertion of cathete r into peripheral vein [facility] Start: 08-03-2024 Measuring intake and output [facility] Start: 08-03-2024 Oxygen therapy [facility] Start: 08-03-2024 Providing care accor ding to standard [facility] Start: 08-03-2024 Provision of activit y privileges [facility] Start: 08-03-2024 Referral for physica l therapy [facility] Start: 08-03-2024 Referral to service [facility] Start: 08-03-2024 Following clinical p athway protocol [facility] Start: 08-03-2024 End: 08-03-2024 [facility] Start: 08-03-2024 Verification routine [facility] Start: 08-03-2024 Admission procedure [facility] Start: 08-03-2024 End: 08-03-2024 [facility] Start: 07-22-2024 End: 07-22-2024 ambulatory 07/22/2024 7:30 AM EDT Results Only [facility] [address] [place] [address] lab [facility] Comment on above: lab Start: 07-08-2024 End: 07-08-2024 ambulatory Hematology/Oncology Comment on above: [employer]ARD [employer] SALESPERSON/Thrombocytosis [D 75.839]/REF Edwin Naranjo APRN.BUSINESS DATA ANALYST * [employer]ARD [employer] SALESPERSON/Thrombocytosis [D 75.839]/REF Edwin Naranjo APRN.BUSINESS DATA ANALYST *THIS DATE AND TIME PER PATIENT Start: 07-08-2024 End: 10-07-2024 Cobalamin (Vitamin B12) [Mass/volume] in Serum or Plasma [facility] Work Phone: Comment on above: Expected: 07/08/2024 , Expires: 10/07/2024 Start: 07-08-2024 End: 10-07-2024 Ferritin [Mass/volume] in Serum or Plasma [facility] Comment on above: Expected: 07/08/2024 , Expires: 10/07/2024 Start: 07-08-2024 End: 10-07-2024 Folate [Mass/volume] in Serum or Plasma [facility] Comment on above: Expected: 07/08/2024 , Expires: 10/07/2024 Start: 07-08-2024 End: 10-07-2024 Iron and Iron binding capacity panel - Serum or Plasma [facility] Comment on above: Expected: 07/08/2024 , Expires: 10/07/2024 Start: 07-08-2024 End: 10-07-2024 Methylmalonate [Moles/volume] in Serum or Plasma [facility] Comment on above: Expected: 07/08/2024 , Expires: 10/07/2024 Start: 06-10-2024 End: 06-10-2024 Patient encounter procedure 06/10/2024 9:20 AM EDT Office Visit Family Jessica Simpson [address] [place] [address] Brien Singer MD [address] [place], [place] [id number] 6 month follow up [facility] Jessica Simpson Comment on above: 6 month follow up Start: 06-06-2024 Annual PCP Team Handle Assembler kayode Disease Visit Annual PCP Team Chronic Disease Visit [facility] Start: 06-06-2024 End: 09-05-2024 CBC W Auto Differential panel - Blood COMPLETE BLOOD COUNT AND DIFFERENTIAL Lab Routine Nonischemic cardiomyopathy (HCC) Coronary artery spasm (HCC) Mixed hyperlipidemia Expected: 06/06/2024 (Approximate), Expires: 09/05/2024 [facility] Comment on above: Expected: 06/06/2024 (Approximate), Expires: 09/05/2024 Start: 06-06-2024 End: 09-05-2024 Comprehensive metabolic 2000 panel - Serum or Plasma COMPREHENSIVE METABOLIC PANEL Lab Routine Nonischemic cardiomyopathy (HCC) Coronary artery spasm (HCC) Mixed hyperlipidemia Expected: 06/06/2024 (Approximate), Expires: 09/05/2024 [facility] Comment on above: Expected: 06/06/2024 (Approximate), Expires: 09/05/2024 Start: 06-06-2024 End: 09-05-2024 Lipid 1996 panel - Serum or Plasma LIPID PANEL BASIC Lab Routine Nonischemic cardiomyopathy (HCC) Coronary artery spasm (HCC) Mixed hyperlipidemia Expected: 06/06/2024 (Approximate), Expires: 09/05/2024 [facility] Work Phone: Comment on above: Expected: 06/06/2024 (Approximate), Expires: 09/05/2024 Start: 05-24-2024 DIABETES SCREEN DIABETES SCREEN [facility] Start: 02-13-2024 Advance Directive Discussion Advance Directive Discussion [facility] Start: 12-07-2023 End: 03-07-2024 CBC W Auto Differential panel - Blood [facility] Comment on above: Expected: 12/07/2023 (Approximate), Expires: 03/07/2024 Expected: 12/07/2023 , Expires: 03/07/2024 Start: 12-07-2023 End: 03-07-2024 Comprehensive metabolic 2000 panel - Serum or Plasma COMPREHENSIVE METABOLIC PANEL Lab Routine Nonischemic cardiomyopathy (HCC) Mixed hyperlipidemia Expected: 12/07/2023 (Approximate), Expires: 03/07/2024 [facility] Comment on above: Expected: 12/07/2023 (Approximate), Expires: 03/07/2024 Start: 12-07-2023 End: 03-07-2024 Lipid 1996 panel - Serum or Plasma LIPID PANEL BASIC Lab Routine Nonischemic cardiomyopathy (HCC) Mixed hyperlipidemia Expected: 12/07/2023 (Approximate), Expires: 03/07/2024 [facility] Work Phone: Comment on above: Expected: 12/07/2023 (Approximate), Expires: 03/07/2024 Start: 12-02-2023 Annual PCP Team Handle Assembler kayode Disease Visit Annual PCP Team Chronic Disease Visit [facility] Start: 12-02-2023 BP Controlled (<130/80) BP Controlle d (<130/80) [facility] Start: 12-02-2023 Covid-19 Vaccine (#1) Covid-19 Vacci ne (#1) [facility] Comment on above: Postponed from 01/18 (Declined at this time) Start: 12-02-2023 Covid-19 Vaccine () Covid-19 Vaccine () [facility] Comment on above: Postponed from 10/13 (Declined at this time) Start: 11-23-2023 End: 11-23-2023 Patient encounter procedure 11/23/2023 8:00 AM EDT Office Visit [facility] [address] [place] [id number] Brien Singer MD [address] [place] [address] 6 month follow up Family Jessica Simpson Comment on above: 6 month follow up Start: 10-14-2023 Covid-19 Vaccine ( season) Covid-19 Vaccine ( season) [facility] Start: 10-14-2023 Influenza vaccination [facility] Start: 07-20-2023 RSV Vaccine (1 - 1-d ose 75+ series) RSV Vaccine (1 - 1-dose 75+ series) [facility] Start: 06-20-2023 FECAL OCCULT BLOOD FECAL OCCULT BLOO D [facility] Start: 06-20-2023 Screening for malign ant neoplasm of colon Fecal Occult Blood [facility] Start: 06-03-2023 DIABETES SCREEN DIABETES SCREEN [facility] Start: 06-02-2023 ANNUAL PCP TEAM ANALYTICS LEADER KAYODE DISEASE VISIT ANNUAL PCP TEAM CHRONIC DISEASE VISIT [facility] Start: 06-02-2023 End: 09-01-2023 CBC W Auto Differential panel - Blood CBC + DIFF Lab Routine Essential hypertension Expected: 06/02/2023 (Approximate), Expires: 09/01/2023 [facility] Work Phone: Comment on above: Expected: 06/02/2023 (Approximate), Expires: 09/01/2023 Start: 06-02-2023 End: 09-01-2023 Comprehensive metabolic 2000 panel - Serum or Plasma COMP METABOLIC PANEL Lab Routine Mixed hyperlipidemia Essential hypertension Elevated liver enzymes Expected: 06/02/2023 (Approximate), Expires: 09/01/2023 [facility] Work Phone: Comment on above: Expected: 06/02/2023 (Approximate), Expires: 09/01/2023 Start: 06-02-2023 End: 09-01-2023 Lipid 1996 panel - Serum or Plasma LIPID PANEL BASIC Lab Routine Mixed hyperlipidemia Essential hypertension Nonischemic cardiomyopathy (HCC) Expected: 06/02/2023 (Approximate), Expires: 09/01/2023 [facility] Work Phone: Comment on above: Expected: 06/02/2023 (Approximate), Expires: 09/01/2023 Start: 12-01-2022 End: 01-31-2023 CBC W Auto Differential panel - Blood CBC + DIFF Lab Routine Nonischemic cardiomyopathy (HCC) Expected: 12/01/2022 (Approximate), Expires: 01/31/2023 [facility] Work Phone: Comment on above: Expected: 12/01/2022 (Approximate), Expires: 01/31/2023 Start: 12-01-2022 End: 01-31-2023 Comprehensive metabolic 2000 panel - Serum or Plasma COMP METABOLIC PANEL Lab Routine Mixed hyperlipidemia Nonischemic cardiomyopathy (HCC) Expected: 12/01/2022 (Approximate), Expires: 01/31/2023 [facility] Work Phone: Comment on above: Expected: 12/01/2022 (Approximate), Expires: 01/31/2023 Start: 12-01-2022 End: 01-31-2023 Lipid 1996 panel - Serum or Plasma LIPID PANEL BASIC Lab Routine Mixed hyperlipidemia Nonischemic cardiomyopathy (HCC) Expected: 12/01/2022 (Approximate), Expires: 01/31/2023 [facility] Work Phone: Comment on above: Expected: 12/01/2022 (Approximate), Expires: 01/31/2023 Start: 11-28-2022 ANNUAL PCP TEAM ANALYTICS LEADER KAYODE DISEASE VISIT ANNUAL PCP TEAM CHRONIC DISEASE VISIT [facility] Start: 11-28-2022 BP CONTROLLED (<130/80) BP CONTROLLE D (<130/80) [facility] Start: 10-13-2022 Influenza vaccination Influenza Vacc ine (#1) [facility] Start: 06-20-2022 COLORECTAL CANCER SCREENING COLORECTAL CANCER SCREENING [facility] Start: 05-30-2022 ANNUAL PCP TEAM ANALYTICS LEADER KAYODE DISEASE VISIT ANNUAL PCP TEAM CHRONIC DISEASE VISIT [facility] Start: 05-30-2022 COVID-19 VACCINE (#1) COVID-19 VACCI NE (#1) [facility] Comment on above: Postponed from 01/18 (Declined at this time) Start: 05-30-2022 COVID-19 VACCINE (1) COVID-19 VACCIN E (1) [facility] Comment on above: Postponed from 07/19 (Declined at this time) Start: 05-30-2022 HEPATITIS C SCREENING HEPATITIS C [facility] Comment on above: Postponed from 07/19 (Declined at this time) Start: 05-29-2022 End: 07-29-2022 CBC W Auto Differential panel - Blood CBC + DIFF Lab Routine Coronary artery spasm (HCC) Expected: 05/29/2022 (Approximate), Expires: 07/29/2022 [facility] Work Phone: Comment on above: Expected: 05/29/2022 (Approximate), Expires: 07/29/2022 Start: 05-29-2022 End: 07-29-2022 Comprehensive metabolic 2000 panel - Serum or Plasma COMP METABOLIC PANEL Lab Routine Mixed hyperlipidemia Expected: 05/29/2022 (Approximate), Expires: 07/29/2022 [facility] Work Phone: Comment on above: Expected: 05/29/2022 (Approximate), Expires: 07/29/2022 Start: 05-29-2022 End: 07-29-2022 Lipid 1996 panel - Serum or Plasma LIPID PANEL BASIC Lab Routine Mixed hyperlipidemia Expected: 05/29/2022 (Approximate), Expires: 07/29/2022 [facility] Work Phone: Comment on above: Expected: 05/29/2022 (Approximate), Expires: 07/29/2022 Start: 11-16-2021 Adult depression scr eening assessment DEPRESSION SCREENING [facility] Start: 11-16-2021 ANNUAL PCP TEAM ANALYTICS LEADER KAYODE DISEASE VISIT ANNUAL PCP TEAM CHRONIC DISEASE VISIT [facility] Start: 05-30-2021 End: 07-30-2021 CBC W Auto Differential panel - Blood CBC + DIFF Lab Routine Mixed hyperlipidemia Essential hypertension Coronary artery spasm (HCC) MATUTE (dyspnea on exertion) Expected: 05/30/2021, Expires: 07/30/2021 [facility] Work Phone: Comment on above: Expected: 05/30/2021 , Expires: 07/30/2021 Start: 05-30-2021 End: 07-30-2021 Comprehensive metabolic 2000 panel - Serum or Plasma COMP METABOLIC PANEL Lab Routine Mixed hyperlipidemia Essential hypertension Expected: 05/30/2021, Expires: 07/30/2021 [facility] Work Phone: Comment on above: Expected: 05/30/2021 , Expires: 07/30/2021 Start: 05-30-2021 End: 07-30-2021 LIPID PANEL BASIC LIPID PANEL BASIC Lab Routine Mixed hyperlipidemia Essential hypertension Expected: 05/30/2021, Expires: 07/30/2021 [facility] Work Phone: Comment on above: Expected: 05/30/2021 , Expires: 07/30/2021 Start: 05-24-2021 End: 07-24-2021 CBC panel - Blood by Automated count CBC Lab Routine Coronary artery spasm (HCC) Expected: 05/24/2021 (Approximate), Expires: 07/24/2021 [facility] Work Phone: Comment on above: Expected: 05/24/2021 (Approximate), Expires: 07/24/2021 Start: 05-24-2021 End: 07-24-2021 Comprehensive metabolic 2000 panel - Serum or Plasma COMP METABOLIC PANEL Lab Routine Mixed hyperlipidemia Coronary artery spasm (HCC) Expected: 05/24/2021 (Approximate), Expires: 07/24/2021 [facility] Work Phone: Comment on above: Expected: 05/24/2021 (Approximate), Expires: 07/24/2021 Start: 05-24-2021 End: 07-24-2021 LIPID PANEL BASIC LIPID PANEL BASIC Lab Routine Mixed hyperlipidemia Coronary artery spasm (HCC) Expected: 05/24/2021 (Approximate), Expires: 07/24/2021 [facility] Work Phone: Comment on above: Expected: 05/24/2021 (Approximate), Expires: 07/24/2021 Start: 02-12-2021 ADVANCE DIRECTIVE DISCUSSION ADVANCE DIRECTIVE DISCUSSION [facility] Start: 07-23-2020 Colonoscopy COLONOSCOPY [facility] Start: 07-23-2020 COLORECTAL CANCER SCREENING COLORECTAL CANCER SCREENING [facility] Start: 10-10-2016 Urine microalbumin profile [facility] Start: 12-08-2014 FECAL OCCULT BLOOD FECAL OCCULT BLOO D [facility] Start: 2008 RSV Vaccine (1 - 1-d ose 60+ series) RSV Vaccine (1 - 1-dose 60+ series) [facility] Start: 1998 SHINGRIX VACCINE (1 of 2) GONZALEZ GRIX VACCINE (1 of 2) [facility] Start: 1993 COLOGUARD (FIT-DNA) COLOGUARD (FIT-D NA) [facility] Start: [address] COLONOGRAPHY [facility] Start: 1993 Screening for malign ant neoplasm of colon [facility] Start: 1993 SIGMOIDOSCOPY SIGMOIDOSCOPY [facility] Start: 1966 BP CONTROLLED (<130/80) BP CONTROLLE D (<130/80) [facility] Start: 1966 HEPATITIS C SCREENING HEPATITIS C [facility] Start: 1966 Hepatitis C screening Hepatitis C [facility] Start: 1953 COVID-19 VACCINE (1) COVID-19 VACCIN E (1) [facility] Start: 01-18-1951 COVID-19 VACCINE (#1) COVID-19 VACCI NE (#1) [facility] Alanine aminotransfe rase [Enzymatic activity/volume] in Serum or Plasma [facility] Albumin [Mass/volume ] in Serum or Plasma [facility] Alkaline phosphatase [Enzymatic activity/volume] in Serum or Plasma [facility] Anion gap in Serum o r Plasma [facility] Bilirubin, total measurement [facility] BUN/Creatinine ratio [facility] Calcium [Mass/volume ] in Serum or Plasma [facility] Carbon dioxide, tota l [Moles/volume] in Central venous blood [facility] End: 07-08-2025 CBC W Auto Differential panel - Blood COMPLETE BLOOD COUNT AND DIFFERENTIAL Lab STAT Essential thrombocytosis (HCC) Once per week for 52 Occurrences starting 07/08/2024 until 07/08/2025 [facility] Comment on above: Once per week for 52 Occurrences starting 07/08/2024 until 07/08/2025 Creatinine [Mass/vol ume] in Serum or Plasma [facility] Erythrocyte mean corpuscular volume determination [facility] Glucose [Mass/volume ] in Serum or Plasma [facility] Hematocrit [Volume Fraction] of Blood [facility] Hemoglobin [Mass/vol ume] in Blood [facility] Hemoglobin.gastroint estina l.lower [Presence] in Stool by Immunoassay FECAL OCCULT BLOOD TEST Lab Routine Screening for colon cancer Ordered: 06/01/2022 [facility] Work Phone: Comment on above: Ordered: 06/01/2022 Leukocytes [#/volume ] in Blood [facility] Mean corpuscular hemoglobin concentration determination [facility] Mean corpuscular hemoglobin determination [facility] Measurement of renal function [facility] Neutrophil count [facility] Neutrophil percent differential count [facility] Patient Education ED Upper GI Bl eeding (Stable) [facility] Work Phone: Patient referral [facility] Work Phone: Platelets [#/volume] in Blood [facility] Potassium measurement [facility] Red blood cell count [facility] Red cell distributio n width determination [facility] Serum chloride measurement [facility] Sodium measurement [facility] Total protein measurement [facility] Urea nitrogen [Mass/volume] in Serum or Plasma [facility] Urine culture [facility] Urine culture [facility] Immunizations Immunization Date Immunization Notes Care Provider [facility] 11-28-2021 influenza, high-dose , quadrivalent vaccine (FLUZONE HIGH DOSE QUADRIVALENT) Brien Singer MD Work Phone: [facility] 11-28-2021 influenza virus vacc ine, unspecified formulation Brien Singer MD Work Phone: [facility] 11-16-2020 influenza, high-dose , quadrivalent vaccine (FLUZONE HIGH DOSE QUADRIVALENT) Brien Singer MD Work Phone: [facility] 11-20-2019 influenza, high-dose , quadrivalent vaccine (FLUZONE HIGH DOSE QUADRIVALENT) Brien Singer MD Work Phone: [facility] 11-18-2019 Influenza virus vaccine [facility] 01-29-2018 influenza, high dose seasonal, preservative-free Brien Singer MD Work Phone: [facility] 12-01-2016 influenza, high dose seasonal, preservative-free Brien Singer MD Work Phone: [facility] 12-01-2016 pneumococcal conjuga te vaccine, 13 valent Brien Singer MD Work Phone: [facility] 12-02-2015 influenza, high dose seasonal, preservative-free Brien Singer MD Work Phone: [facility] 11-30-2014 influenza, high dose seasonal, preservative-free Brien Singer MD Work Phone: [facility] 12-02-2013 influenza, seasonal, injectable Brien Singer MD Work Phone: [facility] 12-02-2013 pneumococcal polysaccharide vaccine, 23 valent Brien Singer MD Work Phone: [facility] 11-29-2012 influenza virus vacc ine, unspecified formulation Brien Singer MD Work Phone: [facility] 11-14-2011 influenza virus vacc ine, unspecified formulation Brien Singer MD Work Phone: [facility] 02-02-2010 influenza virus vacc ine, unspecified formulation Brien Singer MD Work Phone: [facility] 11-23-2008 influenza virus vacc ine, unspecified formulation Brien Singer MD Work Phone: [facility] Work Phone: 12-19-2007 influenza virus vacc ine, unspecified formulation Brien Singer MD Work Phone: [facility] Work Phone: 10-10-2006 tetanus toxoid, redu sonja diphtheria toxoid, and acellular pertussis vaccine, adsorbed Brien Singer MD Work Phone: [facility] Work Phone: Payers Date Payer Category Payer Self-pay [id number] 2024 Unknown [id number] 2022 Unknown [id number] 2022 Private Health Insurance [id number] Unknown [id number] Unknown [id number] [id number] Unknown [id number] [id number] Unknown [id number] [id number] Unknown [id number] [id number] Unknown [id number] [id number] Unknown [id number] [id number] Unknown [id number] Social History Date Type Detail Facility Start: 12-01-2016 End: 11-06-2024 Tobacco smoking status KSIS Never smoked tobacco [facility] Work Phone: Start: 12-01-2016 End: 11-28-2021 Tobacco use and exposure User of smokeless tobacco [facility] Work Phone: End: 01-12-2023 History of tobacco use Chews Tobacco [facility] Work Phone: Start: 11-24-2020 End: 10-17-2024 Alcohol intake Current drinker of alcohol (finding) [facility] Start: 11-24-2020 End: 12-01-2022 Alcohol intake [facility] Work Phone: Start: 09-03-2018 End: 11-28-2021 Tobacco Comment intermittently [facility] Start: 1950 Sex Assigned At Not on file [facility] Start: 11-18-2021 End: 11-28-2021 Exposure to SARS-CoV-2 (event) Not sure [facility] Start: 06-24-2022 Tobacco smoking status NHIS Unknown if ever smoked [facility] Start: 11-27-2019 Spouse/ Significant Other [facility] Start: 1950 Sex Assigned At Male [facility] Start: 06-01-2022 End: 12-01-2022 Tobacco use panel [facility] Work Phone: Start: 01-14-2012 Adult Depression Screening Assessment 0 [facility] Work Phone: Start: 06-07-2023 End: 07-08-2024 Tobacco use and exposure Former smokeless tobacco user [facility] Goals Date Patient Goal Desired Activity /State Functional Status Date Assessment Result Facility 11-07-2024 Functional status [facility] Work Phone: 08-03-2024 Functional status [facility] Work Phone: 05-28-2014 Are you deaf, or do you have serious difficulty hearing No 05/28/2014 8:06 AM Clint Villagomez LPN No [facility] 05-28-2014 Are you blind, or do you have serious difficulty seeing, even when wearing glasses No 05/28/2014 8:06 AM Clint Villagomez LPN No [facility] 05-28-2014 Do you have serious difficulty walking or climbing stairs No 05/28/2014 8:06 AM Clint Villagomez LPN No [facility] 05-28-2014 Do you have difficul ty dressing or bathing No 05/28/2014 8:06 AM EDT Clint Gamez LPN No [facility] 05-28-2014 Because of a physica l, mental, or emotional condition, do you have difficulty doing errands alone such as visiting a physician's office or shopping No 05/28/2014 8:06 AM EDT Clint Gamez LPN No [facility] Mental Status Date Assessment Result Facility 11-07-2024 Cognitive function Voice/Name [facility] Work Phone: 08-03-2024 Cognitive function Voice/Name [facility] Work Phone: 08-03-2024 Cognitive function Voice/Name [facility] Work Phone: 08-02-2024 Cognitive function Level Of Cons ciousness Awake;Alert;Appropriate;Fol lows Commands [facility] Work Phone: 05-28-2014 Because of a physica l, mental, or emotional condition, do you have serious difficulty concentrating, remembering, or making decisions No 05/28/2014 8:06 AM EDT Clint Gamez LPN No [facility] Clinical Notes 02-02-2010 to 11-24-2024 Note Date & Type Note Facility 11-24-2024 Note HNO ID: [id number] Author: BRIEN SINGER MD Service: ? Author Type: Physician Type: Progress Notes Filed: 11/24/2024 13:07 Note Text: Chief Complaint Patient presents with: 6 Month Exam HPI Husam Barrow is a 74 year old male who presents here today for 6 month follow up. Declined Flu vaccine. 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 No bowel, Gi, or urinary issues. HTN: Taking Coreg 3.125 mg 1 pill BID and Losartan 25 mg daily. No chest pains, dizziness, or Shortness of Breath. Report low BP many days; feels bad if systolic is under 100-110. Depression/MAKENZIE: Stable on Wellbutrin 300 mg daily. Follows with Hem/Onc Dr. Edwards for thrombocytosis. Taking Hydrea 500 mg daily; dmitriy not tolerate higher dose. Was recently admitted to [facility] 11/06/24 and discharged 11/07/24 for Non-STEMI, Leukocytosis, Disequilibrium (records in scanned docs). Advised to follow up with [facility]. Has hospital follow up with Cardio this week. Had heart cath showing no significant blockage. Cough: has had a dry cough x 1 month. He has had the cough since admission. Past medical history, appointments, medications, allergies reviewed. Previous Medical History PAST MEDICAL HISTORY Diagnosis Date Aortic stenosis echo 2024 Blood in stool Chewing tobacco use Coronary artery spasm Hypertension 02/02/2010 Myeloproliferative neoplasm (HCC) bone marrow biospy 2024 Non-STEMI (non-ST elevated myocardial infarction) (HCC) Osteoarthritis, knee bilateral, seeing [facility] Overweight (BMI 25.0-29.9) Pure hypercholesterolemia Syncope 1999 x3 Thrombocytosis Unspecified asthma(493.90) Unspecified essential hypertension Previous Surgical History PAST SURGICAL HISTORY Procedure Laterality Date ARTHROSCOPY KNEE DIAGNOSTIC W/WO SYNOVIAL BX SPX Arthroscopy, knee COLONOSCOPY 2008 normal, repeat in 10 years COLONOSCOPY N/A 07/06/2022 COLONOSCOPY FLX DX W/COLLJ SPEC WHEN PFRMD 2003 Colonoscopy EGD W/O [facility] SPEC VARICIES INJ N/A 07/06/2022 PAST SURGICAL HISTORY OF 1998 heart cath PAST SURGICAL HISTORY OF 2005 repair fx left foearm plate and screw PAST SURGICAL HISTORY OF N/A 02/2021 Heart Cath in [place] TONSILLECTOMY AND ADENOIDECTOMY Family History FAMILY HISTORY Problem Relation Age of Onset Heart Mother CHF Patient Allergies ALLERGIES Allergen Reactions Toprol Xl [Metoprol* Other: See Comments General illness, felt lousy, GI upset Baycol Current Medications Current Outpatient Medications on File Prior to Visit Medication Sig hydroxyurea (HYDREA) 500 mg capsule Take 2 capsules by mouth once daily. (Patient taking differently: Take 500 mg by mouth once daily.) buPROPion XL (WELLBUTRIN XL) 300 mg 24 hr tablet Take 1 tablet by mouth once daily. folic acid 1 mg tablet Take 2 tablets by mouth once daily. carvedilol (COREG) 3.125 mg tablet Take 3.125 mg by mouth twice daily. losartan (COZAAR) 25 mg tablet Take 1 tablet by mouth once daily. No current facility-administered medications on file prior to visit. Social History SOCIAL HISTORY[1] EXAM: BP 126/74 Pulse 70 Resp 16 Wt 81.6 kg (179 lb 14.3 oz) BMI 26.37 kg/m? General Appearance: Well appearing, alert, in no acute distress, well-hydrated, well nourished.. Lungs: Lungs clear to auscultation. No wheezing, rhonchi, rales.. Heart: RRR without murmur, gallop, or rubs. No ectopy. Health Maintenance List Hepatitis C Screening Never done Shingrix Vaccine(1 of 2) Never done DTaP,Tdap,Td Vaccine(2 - Td or Tdap) due on 10/10/2016 RSV Vaccine(1 - 1-dose 75+ series) Never done Advance Directive Discussion due on 02/13/2024 Covid-19 Vaccine( - season) Never done Influenza Vaccine(1) due on 08/11/2025 Serum Creatinine due on 06/16/2025 Annual PCP Team Chronic Disease Visit due on 06/20/2025 Hemoglobin/Hematocrit due on 10/17/2025 Diabetes Screening due on 06/17/2027 Pneumococcal Vaccine: 50+ Completed Colorectal Cancer Screening Discontinued Data reviewed none Recording using RightSignature software for draft documentation of the visit was discussed with the patient/authorized sales representative door to door; all questions welcomed and answered. Patient/authorized sales representative door to door agreed to proceed 1. Essential hypertension (I10) 2. Nonischemic cardiomyopathy (HCC) (I42.8) BP has been variable, with recent episodes of hypotension (as low as 80/40 mmHg) associated with dizziness and malaise, and more recent readings in the 120s/70s associated with improved well-being. Patient is currently on carvedilol and losartan for heart and blood pressure management. Recent cardiac event required overnight hospitalization, with heart catheterization revealing 30% blockage and some arterial leakage, but no stents were placed. Follow-up with cardiology is scheduled. - Advised to hold losartan on days when systolic BP is below 100 mmHg; if hypotension pe (more content not included)... [facility] 11-07-2024 Discharge summary [facility] 11-07-2024 Consult note [facility] 11-07-2024 Discharge summary [facility] 11-07-2024 Note [facility] Medical Records Department [address] [place] [address] Discharge Summary 11/07/24 1118 MR#: [id number] Acct: [id number] Name: HUSAM BARROW Rep #: [id number] : 1950 74 From: Scott Gunn MD PCP: Dr. Brien Singer MD Status:ADM IN Location: [place] [address]1 Providers Date of Admission: 11/06/24 Date of Discharge: 11/07/24 Primary Care Physician: Dr. Brien Singer MD Consultations 11/06/24 13:57 Consult: Cardiology Routine Consulting Provider: Lance Garrett Reason for Consult: Chest Pain EMERGENT Consult: No MD Notified: Yes Date Notified: 11/06/24 Time Notified: 11:36 Method of Notification: ED Physician Initiated Reason For Visit: NSTEMI Diagnosis Discharge Diagnosis (1) Non-STEMI (non-ST elevated myocardial infarction): Status: Acute Code(s): I21.4 - Non-ST elevation (NSTEMI) myocardial infarction (2) CAD (coronary artery disease): Status: Acute Code(s): I25.10 - Atherosclerotic heart disease of [place] coronary artery without angina pectoris (3) Leukocytosis: Status: Acute Code(s): D72.829 - Elevated white blood cell count, unspecified (4) Disequilibrium: Status: Acute Code(s): R42 - Dizziness and giddiness Plan NSTEMI - Cardiac catheterization is relatively despite EKG changes and troponin elevation - Cath with 10% proximal LAD stenosis and 30 to 40% mid RCA stenosis--> medical therapy is recommended - Echocardiogram reported mild MR mild TR, EF 60% with stage I diastolic dysfunction suggestive of mild chronic HFpEF. Moderate RV systolic dysfunction, normal RV size. - Continue aspirin - Home dose of atorvastatin 40 mg daily increased to 80 mg daily and new prescription was given. A1c 5.5%. -Lipid panel in normal limit except low HDL 29. Atorvastatin 40 (to 80 mg. New prescription given. ESR elevated 63. CRP 71.7. Acute Fast reactants are elevated. Advised follow-up with cryogenic transport driver with nurse practitionerCarlos Manuel in 4 weeks and repeat limited echo in 6 weeks. Follow with cryogenic transport driver Dr. Lance Garrett in 2 months after echo. Patient lives in [place] for 5 months and 7 months in [place]. He has cryogenic transport driver here but none here. Does not follow cardiology here. 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 Discharge follow-up instructions completed. Discharge process discussed with the patient and all questions were answered to patient's satisfaction. Follow with PCP in 1 to 2 weeks Total time spent, exact 35 minutes on discharge meds reconciliation, examination, coordination of care with nurses and ancillary staff, review of imaging and blood test and discussion with the patient on follow-up instructions. Echo 11/06/2024 Interpretation Summary LV apical and mid cavitary false tendons. Suspect apical thinning. Basal inferior hypokinesis. Overall LVEF 60%. Stage I diastolic dysfunction. Normal RV size. Moderate RV systolic dysfunction. The left atrium is moderately enlarged. The right atrium is mildly enlarged. Mild (1+) mitral valve insufficiency. Mild (1+) tricuspid valve insufficiency. Mildly thickened aortic valve leaflets. Mild aortic valve stenosis. Mean peak gradient 11 mmHg. The study was technically difficult. Recommend cardiac MRI for further evaluation of the LV apex. Medications at Discharge Home Medications diltiazem HCl 180 mg capsule,extended release 24 hr 1 cap PO DAILY Check with primary doctor 11/28/19 aspirin 81 mg tablet,delayed release 81 mg PO DAILY 06/24/22 bupropion HCl 300 mg 24 hr tablet, extended release 300 mg PO DAILY 06/24/22 folic acid 1 mg tablet 2 mg PO DAILY 06/24/22 losartan 50 mg tablet 25 mg PO DAILY 06/24/22 hydroxyurea 500 mg capsule 500 mg PO DAILY 08/03/24 atorvastatin 80 mg tablet 80 mg PO QHS 30 days #30 tabs 11/07/24 carvedilol 6.25 mg tablet 6.25 mg PO BIDCM 30 days #60 tabs 11/07/24 Physical Exam Narrative Seen and examined. Nausea, dizziness and discogram has resolved. Blood pressure is better. Had orthostatic/low BP when he came to ED. No chest pain systo (more content not included)... [facility] 11-06-2024 Discharge summary Note Date/Time November 06, 2024 4:54pm [facility] Medical Records Department [address] [place] [address] Emergency Department Summary 11/06/24 MR#: [id number] Acct: [id number] Name: HUSAM BARROW Rep #:[id number] : 1950 74 From: Erick Teresa PCP: Dr. Brien Singer MD Status:AD M IN Location: [address] History of Present Illness Chief Complaint: Dizziness Informant: patient Onset/Context/Timing Onset: Today Context: Gradual Onset Timing: Continuous Quality: Off balance Location: Generalized Worsened by: Activity, movement Relieved by: Laying down Narrative Narrative: Patient presents with dizziness that began today. Patient states that it was gradual gotten worse. Patient states he feels like he is off balance. Patient states that it is worse with any movement or activity. Patient states it is better when he is able to lay down. Patient admits to some nausea and vomiting. Patient denies any headaches. Patient denies any hearing changes or tinnitus. Patient denies any visual changes. Patient denies any chest pain or shortness of breath. Patient has had a recent cough. [facility] Medical History Other abnormal clinical finding Fatigue Generalized weakness Adverse drug reaction Symptomatic bradycardia Generalized weakness Syncope and collapse High platelet count CAD (coronary artery disease) Hypertension Angina of effort Home Medications ?Medication ?Instructions ?Recorded ?Last Taken ?Type diltiazem HCl 180 mg 1 cap PO DAILY Check with pr imary 11/28/19 11/06/24 History capsule,extended release 24 hr doctor aspirin 81 mg tablet,delayed 81 mg PO DAILY 06/24/22 0 11/06/24 History release atorvastatin 40 mg tablet 20 mg PO DAILY 06/24/22 09/06/06 History bupropion HCl 300 mg 24 hr tablet, 300 mg PO DAILY 11/06/24 History extended release folic acid 1 mg tablet 2 mg PO DAILY 06/24/2211/06 History losartan 50 mg tablet 25 mg PO DAILY 06/24/2210/14 History carvedilol 3.125 mg tablet 6.25 mg (2 x 3.125 mg) PO D AILY #1 08/03/24 11/06/24 Rx TAB hydroxyurea 500 mg capsule 500 mg PO DAILY 08/03/24 History Allergy/AdvReac Type Severity Reaction Status Date / Time No Known Allergies Allergy Verified 11/06/24 09:30 Surgical History S/P ORIF (open reduction internal fixation) fracture Social History Smoking Status: Never smoker ROS ROS ED Constitutional Constitutional ED: Denies chills or fever(s) Eyes Eyes: Denies blurry vision or change in vision ENT ENT ED: Denies ear pain, rhinorrhea or sore throat Cardiovascular Cardiovascular: Denies chest pain or palpitations Respiratory/Chest Respiratory/Chest: Reports cough; Denies dyspnea Gastrointestinal Gastrointestinal: Reports nausea and vomiting Genitourinary Genitourinary ED: Denies dysuria or hematuria Musculoskeletal Musculoskeletal: Denies back pain or neck pain Integumentary Denies abscess or rash Neurologic Neurologic: Denies headache(s) or weakness Allergic/Immunologic Allergic/Immunologic ED: Denies mouth swelling or urticaria EXAM Physical Exam Const Vital Signs: 11/06/24 09:25 11/06/24 10:05 11/06/24 11:25 Temperature 98 F Temperature Source Oral Pulse Rate 57 L 57 L Pulse Rate [Lying] 57 L Pulse Rate [Sitting (for 1 minute prior to obtaining)] 61 Pulse Rate [Standing (for 1 minute prior to obtaining)] 61 Respiratory Rate 9 L 18 Blood Pressure 82/47 L 126/84 H Blood Pressure [Lying] 102/68 Blood Pressure [Sitting (for 1 minute prior to obtaining)] 111/70 Blood Pressure [Standing (for 1 minute prior to obtaining)] 91/75 Blood Pressure Mean 58 98 Blood Pressure Mean [Lying] 79 Blood Pressure Mean [Sitting (for 1 minute prior to obtaining)] 83 Blood Pressure Mean [Standing (for 1 minute prior to obtaining)] 80 Pulse Ox 97 97 Oxygen Delivery Method Room Air Room Air Positive well nourished and well developed General Appearance ED: well developed and NAD HEENT Reports moist mucous membranes Negative for trauma Eyes PERRL and EOMs intact bilaterally Eyes Narrative: There is mild nystagmus with right lateral gaze. Neck supple and no JVD Resp normal respiratory effort and clear to auscultation bilaterally Cardio regular rate and regular rhythm GI non-tender and non-distended Palpation: soft Extremity normal to inspection General Extremety ED: Negative for edema or tenderness General Extremity: Negative for edema Neuro oriented x3, CN's II-XII intact bilaterally and no sensory deficits noted Sensorium / Orientation: alert Motor Exam: strength 5/5 throughout Psych mental status grossly normal MDM MDM MDM Narrative Medical decision making narrative: Differential diagnosis includes vertigo, labyrinthitis, dehydration, electrolyteabnormality, cardiac dysrhythmia, cardiac ischemia, intracranial bleeding, stroke, urinary tract infection, sepsis, pneumonia, bronchitis, and viral illness. EKG will be obtained to assess for cardiac dysrhythmia and cardiac ischemia. CT scan of the brain will be obtained to assess for intracranial bleeding and stroke. Chest x-ray will be obtained to assess for pneumonia or bronchitis. CBC will be obtained to assess for leukocytosis and anemia. Basic metabolic profile will be obtained to assess for electrolyte abnormality and renal function. High-sensitivity troponin will be obtained to assess for cardiac ischemia. 2-hour repeat high-sensitivity troponin will be obtained to assess for ongoing cardiac ischemia. Serum lactate will be obtained to assess for sepsis. Urinalysis will be obtained to assess for urinary tract infection and hematuria. COVID-19, influenza, and RSV PCR will be obtained to assess for viral illness. Orthostatic vital signs will be obtained to assess for dehydration and hypovolemia. History & Record Review Additional record(s) reviewed:: Prior inpatient record, Prior ED visit and Priorlabs Lab Data Attestation: I reviewed the patient's lab results. Lab results narrative: CBC was reviewed. There is a mild leukocytosis of 11.1. Hemoglobin was slightly low at 12.0 and hematocrit was 35.9. Basic metabolic profile was reviewed. CO2 was slightly low at 18 and anion gap was slightly elevated at 16. The remainder is within normal limits. Serum lactate was reviewed and was normal at 1.0. Initial high-sensitivity troponin was reviewed and was elevated at 309. Urinalysis was reviewed. There is no evidence of urinary tract infection or hematuria. Labs: Laboratory Results - last 24 hr 11/05/24 11/06/24 11/06/24 16:12 09:32 09:43 WBC 11.1 H RBC 3.22 L Hgb 12.0 L Hct 35.9 L MCV 111.5 H MCH 37.3 H MCHC 33.4 RDW Std Deviation 63.5 H RDW Coeff of Christian 15.4 H Plt Count 406 MPV 9.6 Immature Gran % (Auto) 0.700 Neut % (Auto) 71.1 H Lymph % (Auto) 9.4 L [place] % (Auto) 13.8 H Eos % (Auto) 4.6 Baso % (Auto) 0.4 Absolute Neuts (auto) 7.9 H Absolute Lymphs (auto) 1.04 Nucleated RBC % 0 Sodium 136 Potassium 4.5 Chloride 103 Carbon Dioxide 18.0 L Anion Gap 16 H BUN 19 Creatinine 1.19 Estim Creat Clear Calc 56.25 Est GFR (MDRD) Non-Af 63 BUN/Creatinine Ratio 16.3 Glucose 101 H Hemoglobin A1c 5.5 Lactic Acid Calcium 8.2 Troponin T High Sens 309 H* D Troponin T Hi Sens 2 Hr Urine Color Urine Clarity Urine pH Ur Specific Ignacio Urine Protein Urine Glucose (UA) Urine Ketones Urine Occult Blood Urine Nitrite Urine Bilirubin Urine Urobilinogen Ur Leukocyte Esterase Urine RBC Urine WBC Ur Squamous Epith Cells Urine Bacteria Urine Mucus Hepatitis C Antibody Cancelled 11/06/24 11/06/24 11/06/24 10:00 10:17 11:25 WBC RBC Hgb Hct MCV MCH MCHC RDW Std Deviation RDW Coeff of Christian Plt Count MPV Immature Gran % (Auto) Neut % (Auto) Lymph % (Auto) [place] % (Auto) Eos % (Auto) Baso % (Auto) Absolute Neuts (auto) Absolute Lymphs (auto) Nucleated RBC % Sodium Potassium Chloride Carbon Dioxide Anion Gap BUN Creatinine Estim Creat Clear Calc Est GFR (MDRD) Non-Af BUN/Creatinine Ratio Glucose Hemoglobin A1c Lactic Acid 1.0 Calcium Troponin T High Sens Troponin T Hi Sens 2 Hr 281 H* Urine Color Yellow Urine Clarity Clear Urine pH 6.0 Ur Specific Ignacio 1.015 Urine Protein 15 H Urine Glucose (UA) Normal Urine Ketones Negative Urine Occult Blood 10 H Urine Nitrite Negative Urine Bilirubin Negative Urine Urobilinogen Normal Ur Leukocyte Esterase Negative Urine RBC 0 SEEN Urine WBC 0 SEEN Ur Squamous Epith Cells 0 SEEN Urine Bacteria 1+ Urine Mucus 0 SEEN Hepatitis C Antibody Radiography Chest X-Ray - ED: 1 View, Read by ED Physician, Read by Radiologist and No AcuteDisease Diagnostic Testing: Clinical Impression(s) from Imaging Studies Brain CT 11/06/24 09:43 IMPRESSION: No acute intracranial abnormalities. Reading Location: [facility] Chest X-Ray 11/06/24 09:54 IMPRESSION: The cardiomediastinal silhouette is stable, with a tortuous aorta noted. No evidence of cardiomegaly. 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 Minimal areas of linear scarring or discoid atelectasis are seen in the right lower lung. Lungs otherwise appear clear of acute disease. No pleural effusion or pneumothorax is noted. No interval osseous change is seen. Reading Location: [address] scan of the brain was obtained. There is no acute intracranial abnormality. This was interpreted by the radiologist and was also independently reviewed by myself. Portable 1 view chest x-ray was obtained. On my independent interpretation, lung segal shows areas of atelectasis in the right lower lobe. There is normalcardiac silhouette. Bony thorax is normal. There is no acute process noted. Radiologist also interpreted the x-ray and agrees. EKG Initial EKG: Attestation: I personally reviewed and interpreted this EKG as follows: Interpretation: Sinus Bradycardia (56), RBBB and S-T Depression (V2, V3) Comments: EKG was obtained. On my independent interpretation, shows a sinus bradycardia with a rate of 56. ME interval was normal at 160 ms. QRS interval was slightly prolonged at 130 ms. QTc interval was normal at 428 ms. [place] was normal. There is right bundle branch block pattern noted. There is mild ST depression in leads V2 and V3. Prior EKG tracings: available for review Prior: Changed (The ST depression in leads V2 is new compared to previous EKG dated 08/03/2024.) Management Discussion w/another healthcare provider: Hospitalist (Dr. Mcbride) and [employer]ulator (Dr. Garrett) Treatment and Re-Evaluation :: Patient was given IV fluids. Patient was given a dose of meclizine. Patient was given aspirin. Orthostatic vital signs were obtained and were essentially within normal limits. Case was discussed with Dr. Garrett. He recommended starting the patient on heparin. He recommended admission to the hospital for possible heart catheterization. Patient understands and is agreeable with the plan. All questions were answered. Case was discussed with the hospitalist. She will admit the patient to her service. Critical Care Time Critical Care Time: Yes Critical care time (excluding procedures): 30-74 minutes (34), Including time spent:, Discussing w/Patient &/or Family/Litigation Examiner, Discussing w/Consultants, Arranging Admission or Transfer and Performing Direct Patient Care at Bedside Discharge Plan Dx/Rx/DC Orders Clinical Impression: Non-STEMI (non-ST elevated myocardial infarction), Hypertension, CAD (coronary artery disease) Disposition Disposition: Acute Care Hospital [facility] Discharge Date/Time: 11/06/24 12:55 What to do if you have Problems For any increased pain, shortness of breath, bleeding, nausea or vomiting, chestpain, or any unexpected problems, contact your Primary Care Provider. Call [facility] ([phone]) or report to the closest Emergency Room. Call 911 if necessary. 11/06/24 1654 <Electronically signed by Erick Monsivais DO> Cosigner Signature (if applicable): CC: Dr. Brien Singer MD ~ Signed [facility] Work Phone: [phone] 557-346409-25-2025 History and physical note Author Katty Mcbride [facility] Note Date/Time November 06, 2024 4:54pm [facility] Medical Records Department [address] [place] [address] H&P Exam - Hospitalist 11/06/24 1141 MR#: [id number] Acct: [id number] Name: DANIAL,HUSAM Rep #:[id number] : 1950 74 From: Katty Mcbride DO PCP: Dr. Brien Singer MD Status:AD M IN Location: [facility] [id number] HPI - General General Date of Admission: 11/06/24 Date of Service: 11/06/24 Chief Complaint: Lightheadedness HPI Narrative HUSAM BARROW, is a 74 M who presented to the emergency department at [facility] on 11/06/2024 after an episode of lightheadedness/disequilibrium and emesis. Patient's never had anything quite this significant previously. He stated he had episode that was very mild and hepresented to the emergency department in July at that time it was felt to be an adverse drug reaction. He stated he had some very mild sensation of being off balance when he got out of bed in the morning and then went to a wedding. Afterthe service he was walking out and symptoms got very severe he had an episode ofemesis and then was brought to the emergency department. He had no associated diaphoresis or shortness of breath. He denied any chest pain. He denied any tingling, numbness, weakness anywhere. He had no changes in his bowels and there was no blood in his vomitus. Vital signs on presentation showed a temperature of 98, heart rate 57, respiratory rate was 18, blood pressure initially was 82/47 but repeat after fluids was 126/84, orthostatic vitals were unremarkable, pulse ox was 97% on room air. CBC showed a mild white count elevation of 11.1 with a hemoglobin of 12.0 which appears to be consistent with his baseline. He had a very mild left shift with a 71.1% neutrophilia. He also had a monocytosis at 13.8% which appears to be chronic as well. Chemistry panel showed slightly serum anion gap at 16 with a bicarb of 18. Serum creatinine was normal. Glucose was 101 with ahemoglobin A1c of 5.5. Lactic acid was normal at 1.0. Initial troponin was 309with a delta of 281-1/4 troponin at 300. UA is not suggestive of infection. EKG showed some new ST depression and a chronic right bundle branch block in theanterior septal leads when compared with previous EKG from July 2024. Given histroponin elevation, symptoms, and EKG changes cardiology recommended urgent cardiac catheterization. He was taken for cardiac catheterization and was foundto have a 10% proximal LAD lesion and a 30 to 40% mid RCA lesion. Medical therapy was recommended. I followed up with the patient after cardiac catheterization. He states his disequilibrium had resolved. He denied any chest pain, shortness of breath, diaphoresis, nausea or vomiting and stated he felt well and wanted to go home. [facility] Medical History Other abnormal clinical finding Fatigue Generalized weakness Adverse drug reaction Symptomatic bradycardia Generalized weakness Syncope and collapse High platelet count CAD (coronary artery disease) Hypertension Angina of effort Home Medications ?Medication ?Instructions ?Recorded ?Last Taken ?Type diltiazem HCl 180 mg 1 cap PO DAILY Check with pr imary 11/28/19 11/06/24 History capsule,extended release 24 hr doctor aspirin 81 mg tablet,delayed 81 mg PO DAILY 06/24/22 0 11/06/24 History release atorvastatin 40 mg tablet 20 mg PO DAILY 06/24/2210/14 History bupropion HCl 300 mg 24 hr tablet, 300 mg PO DAILY 11/06/24 History extended release folic acid 1 mg tablet 2 mg PO DAILY 06/24/2211/06 History losartan 50 mg tablet 25 mg PO DAILY 06/24/2210/14 History carvedilol 3.125 mg tablet 6.25 mg (2 x 3.125 mg) PO D AILY #1 08/03/24 11/06/24 Rx TAB hydroxyurea 500 mg capsule 500 mg PO DAILY 08/03/24 History Allergy/AdvReac Type Severity Reaction Status Date / Time No Known Allergies Allergy Verified 11/06/24 09:30 no significant family history Surgical History S/P ORIF (open reduction internal fixation) fracture Social History Smoking Status: Never smoker ROS Constitutional Constitutional: Denies anorexia, change in weight, chills, fatigue, fever(s), malaise, night sweats, weakness or other Eyes Eyes: Denies blurry vision, change in eye color, change in vision, discharge from eye(s), double vision, erythema, eye pain, loss of vision or other ENT HEENT: Denies abnormal hearing, dysphagia, ear pain, epistaxis, headache(s), hearing loss, nasal congestion, nasal discharge, post nasal drip, sinus pressure, sore throat or other Cardiovascular Cardiovascular: Denies chest pain, claudication, dyspnea on exertion, edema, lightheadedness, orthopnea, palpitations, paroxysmal nocturnal dyspnea, rapid heart rate, syncope or other Respiratory/Chest Respiratory/Chest: Denies cough, dyspnea, excessive phlegm production, hemoptysis, productive cough, shortness of breath at rest, shortness of breath with exertion, wheezing or other Gastrointestinal Gastrointestinal: Reports nausea and vomiting; Denies abdominal pain, coffee ground emesis, constipation, diarrhea, dyspepsia, hematemesis, hematochezia, loose stools, melena or other Genitourinary Genitourinary: Denies burning urination, difficulty urinating, dysuria, hematuria, nocturia, urinary frequency, urinary hesitancy, urinary incontinence,urinary urgency or other Musculoskeletal Musculoskeletal: Denies arthralgias, back pain, joint pain, joint stiffness, joint swelling, myalgias, neck pain or other Neurologic Neurologic: Reports disequilibrium; Denies abnormal gait, abnormal speech, confusion, dizziness, focal weakness, headache(s), numbness, paresthesias, seizure-like activity, seizures, syncope, tingling, tremor(s) or other Psychiatric Psychiatric: Denies anxiety, depression, homicidal ideation, suicidal ideation or other Endocrine Endocrinology: Denies change in body appearance, cold intolerance, excessive sweating, heat intolerance, polydipsia, polyuria or other Hematologic/Lymphatic Hematologic/Lymphatic: Denies anemia, easy bleeding, easy bruising, lymphadenopathy or other Allergic/Immunologic Allergic/Immunologic: Denies rhinitis, hives, eczemia, asthma or other Vital Signs Vital Signs Vital Signs: 11/06/24 09:25 11/06/24 10:05 11/06/24 11:25 Temperature 98 F Temperature Source Oral Pulse Rate 57 L 57 L Pulse Rate [Lying] 57 L Pulse Rate [Sitting (for 1 minute prior to obtaining)] 61 Pulse Rate [Standing (for 1 minute prior to obtaining)] 61 Respiratory Rate 9 L 18 Blood Pressure 82/47 L 126/84 H Blood Pressure [Lying] 102/68 Blood Pressure [Sitting (for 1 minute prior to obtaining)] 111/70 Blood Pressure [Standing (for 1 minute prior to obtaining)] 91/75 Blood Pressure Mean 58 98 Blood Pressure Mean [Lying] 79 Blood Pressure Mean [Sitting (for 1 minute prior to obtaining)] 83 Blood Pressure Mean [Standing (for 1 minute prior to obtaining)] 80 Pulse Ox 97 97 Oxygen Delivery Method Room Air Room Air Weight Weight: 85.9 kg Body Mass Index (BMI) 26.4 Physical Exam Const alert, oriented x3, no apparent distress, average body habitus and well nourished Constitutional Narrative: Very pleasant, elderly, white male, lying in bed, family at bedside, 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 echocardiogram, appears comfortable, nontoxic General Appearance: cooperative HEENT normocephalic, head/scalp atraumatic, hearing grossly normal bilaterally and moist oral mucous membranes HEENT Narrative: Dentition is fair for age, Mallampati is 2, no thrush Eyes conjunctivae normal Eyes Narrative: No scleral icterus Neck supple Neck Narrative: Trachea midline, no lymphadenopathy Resp normal respiratory effort, no retractions, no use of accessory muscles and clearto auscultation bilaterally Auscultation: Negative for rales, rhonchi or wheezes Cardio regular rate, regular rhythm, S1 normal heart sound, S2 normal heart sound, no murmurs, no rub, no gallops and no clicks GI normal to inspection, nondistended, normoactive bowel sounds, soft to palpation and non-tender Extremity no clubbing, cyanosis or edema Extremity Narrative: 2+ pedal pulses, right radial compression device in place postcardiac catheterization, left radial pulses 2+ Neuro moves all extremities and no focal motor deficits Speech: speech normal Psych affect normal Psych Narrative: Very pleasant, jovial, eye contact is good and patient interacts appropriately Results Lab / Micro Data 11/06/24 09:32 11/06/24 09:32 Labs: Laboratory Results - last 24 hr 11/06/24 09:32: WBC 11.1 H, RBC 3.22 L, Hgb 12.0 L, Hct 35.9 L, MCV 111.5 H, MCH37.3 H, MCHC 33.4, RDW Std Deviation 63.5 H, RDW Coeff of Christian 15.4 H, Plt Count 406, MPV 9.6, Immature Gran % (Auto) 0.700, Neut % (Auto) 71.1 H, Lymph % (Auto)9.4 L, Horry % (Auto) 13.8 H, Eos % (Auto) 4.6, Baso % (Auto) 0.4, Absolute Neuts(auto) 7.9 H, Absolute Lymphs (auto) 1.04, Nucleated RBC % 0, Sodium 136, Potassium 4.5, Chloride 103, Carbon Dioxide 18.0 L, Anion Gap 16 H, BUN 19, Creatinine 1.19, Estim Creat Clear Calc 56.25, Est GFR (MDRD) Non-Af 63, BUN/Creatinine Ratio 16.3, Glucose 101 H, Calcium 8.2, Troponin T High Sens 309 H* D 11/06/24 10:00: Lactic Acid 1.0 11/06/24 10:17: Urine Color Yellow, Urine Clarity Clear, Urine pH 6.0, Ur Specific Ignacio 1.015, Urine Protein 15 H, Urine Glucose (UA) Normal, Urine Ketones Negative, Urine Occult Blood 10 H, Urine Nitrite Negative, Urine Bilirubin Negative, Urine Urobilinogen Normal, Ur Leukocyte Esterase Negative, Urine RBC 0 SEEN, Urine WBC 0 SEEN, Ur Squamous Epith Cells 0 SEEN, Urine Bacteria 1+, Urine Mucus 0 SEEN Micro: Microbiology 11/06/24 10:00 Mucosa - Nose SARS-CoV-2, Influenza & RSV (PCR) - Final Rhythm Strip Rhythm Strip: Sinus Rhythm Rate: 59 Imaging Radiology Impression Brain CT 11/06/24 09:43 IMPRESSION: No acute intracranial abnormalities. Reading Location: [facility] Chest X-Ray 11/06/24 09:54 IMPRESSION: The cardiomediastinal silhouette is stable, with a tortuous aorta noted. No evidence of cardiomegaly. 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 Minimal areas of linear scarring or discoid atelectasis are seen in the right lower lung. Lungs otherwise appear clear of acute disease. No pleural effusion or pneumothorax is noted. No interval osseous change is seen. Reading Location: [id number] Assessment & Plan Assessment/Plan (1) Non-STEMI (non-ST elevated myocardial infarction): (2) CAD (coronary artery disease): (3) Leukocytosis: (4) Disequilibrium: PLAN: Plan NSTEMI - Cardiac catheterization is relatively despite EKG changes and troponin elevation - Cath with 10% proximal LAD stenosis and 30 to 40% mid RCA stenosis--> medical therapy is recommended - Echocardiogram pending - Continue aspirin - Continue home statin - Check hemoglobin A1c - Check lipid panel - Per discussion with cardiology given essentially negative cardiac catheterization sed rate and CRP ordered if they are elevated myocarditis shouldbe considered and patient should be placed on goal-directed therapy with follow-up echocardiogram in 6 weeks and patient should follow-up with cardiology here prior to leaving for [place] where he goes for the winter Leukocytosis - Very mild and suspect reactive - Patient feels fine at this time - No further workup at this time - Repeat CBC in a.m. Disequilibrium - Resolved - Monitor clinically Essential hypertension/hyperlipidemia - Continue home carvedilol - Continue home losartan - Continue home diltiazem - Monitor closely as patient is on 2 rate modulating drugs and does have a documented history of symptomatic bradycardia--> currently stable Thrombocytosis - Patient on hydroxyurea for this - Ongoing outpatient follow-up as previously directed - Continue folic acid Depression - Continue home Wellbutrin DVT prophylaxis - Heparin drip discontinued - Placed on subcu Lovenox CODE STATUS - Full code verified Charges/Coding Visit Charges Inpatient E&M: 66903 Init Hosp L2 11/06/24 4493 <Electronically signed by Katty Mcbride DO> Cosigner Signature (if applicable): CC: Dr. Katty Mcbride DO; Dr. Brien Singer MD~ Signed [facility] Work Phone: [phone] Discharge summary [facility] Medical Records Department [address] [place] [address] Emergency Department Summary 11/06/24 MR#: [id number] Acct: [id number] Name: HUSAM BARROW Rep #:[id number] : 1950 74 From: Erick Teresa PCP: Dr. Brien Singer MD Status:AD M IN Location: [place] [address] HPI History of Present Illness Chief Complaint: Dizziness Informant: patient Onset/Context/Timing Onset: Today Context: Gradual Onset Timing: Continuous Quality: Off balance Location: Generalized Worsened by: Activity, movement Relieved by: Laying down Narrative Narrative: Patient presents with dizziness that began today. Patient states that it was gradual gotten worse. Patient states he feels like he is off balance. Patient states that it is worse with any movement oractivity. Patient states it is better when he is able to lay down. Patient admits to some nausea and vomiting. Patient denies any headaches. Patient denies any hearing changes or tinnitus. Patient denies any visual changes. Patient denies any chest pain or shortness of breath. Patient has had a recent cough. [facility] Medical History Other abnormal clinical finding Fatigue Generalized weakness Adverse drug reaction Symptomatic bradycardia Generalized weakness Syncope and collapse High platelet count CAD (coronary artery disease) Hypertension Angina of effort Home Medications ?Medication ?Instructions ?Recorded ?Last Taken ?Type diltiazem HCl 180 mg 1 cap PO DAILY Check with pr imary 11/28/19 11/06/24 History capsule,extended release 24 hr doctor aspirin 81 mg tablet,delayed 81 mg PO DAILY 06/24/22 0 11/06/24 History release atorvastatin 40 mg tablet 20 mg PO DAILY 06/24/2210/14 History bupropion HCl 300 mg 24 hr tablet, 300 mg PO DAILY 11/06/24 History extended release folic acid 1 mg tablet 2 mg PO DAILY 06/24/2211/06 History losartan 50 mg tablet 25 mg PO DAILY 06/24/2210/14 History carvedilol 3.125 mg tablet 6.25 mg (2 x 3.125 mg) PO D AILY #1 08/03/24 11/06/24 Rx TAB hydroxyurea 500 mg capsule 500 mg PO DAILY 08/03/24 History Allergy/AdvReac Type Severity Reaction Status Date / Time No Known Allergies Allergy Verified 11/06/24 09:30 Surgical History S/P ORIF (open reduction internal fixation) fracture Social History Smoking Status: Never smoker ROS ROS ED Constitutional Constitutional ED: Denies chills or fever(s) Eyes Eyes: Denies blurry vision or change in vision ENT ENT ED: Denies ear pain, rhinorrhea or sore throat Cardiovascular Cardiovascular: Denies chest pain or palpitations Respiratory/Chest Respiratory/Chest: Reports cough; Denies dyspnea Gastrointestinal Gastrointestinal: Reports nausea and vomiting Genitourinary Genitourinary ED: Denies dysuria or hematuria Musculoskeletal Musculoskeletal: Denies back pain or neck pain Integumentary Denies abscess or rash Neurologic Neurologic: Denies headache(s) or weakness Allergic/Immunologic Allergic/Immunologic ED: Denies mouth swelling or urticaria EXAM Physical Exam Const Vital Signs: 11/06/24 09:25 11/06/24 10:05 11/06/24 11:25 Temperature 98 F Temperature Source Oral Pulse Rate 57 L 57 L Pulse Rate [Lying] 57 L Pulse Rate [Sitting (for 1 minute prior to obtaining)] 61 Pulse Rate [Standing (for 1 minute prior to obtaining)] 61 Respiratory Rate 9 L 18 Blood Pressure 82/47 L 126/84 H Blood Pressure [Lying] 102/68 Blood Pressure [Sitting (for 1 minute prior to obtaining)] 111/70 Blood Pressure [Standing (for 1 minute prior to obtaining)] 91/75 Blood Pressure Mean 58 98 Blood Pressure Mean [Lying] 79 Blood Pressure Mean [Sitting (for 1 minute prior to obtaining)] 83 Blood Pressure Mean [Standing (for 1 minute prior to obtaining)] 80 Pulse Ox 97 97 Oxygen Delivery Method Room Air Room Air Positive well nourished and well developed General Appearance ED: well developed and NAD HEENT Reports moist mucous membranes Negative for trauma Eyes PERRL and EOMs intact bilaterally Eyes Narrative: There is mild nystagmus with right lateral gaze. Neck supple and no JVD Resp normal respiratory effort and clear to auscultation bilaterally Cardio regular rate and regular rhythm GI non-tender and non-distended Palpation: soft Extremity normal to inspection General Extremety ED: Negative for edema or tenderness General Extremity: Negative for edema Neuro oriented x3, CN's II-XII intact bilaterally and no sensory deficits noted Sensorium / Orientation: alert Motor Exam: strength 5/5 throughout Psych mental status grossly normal MDM MDM MDM Narrative Medical decision making narrative: Differential diagnosis includes vertigo, labyrinthitis, dehydration, electrolyteabnormality, cardiac dysrhythmia, cardiac ischemia, intracranial bleeding, stroke, urinary tract infection, sepsis, pneumonia, bronchitis, and viral illness. EKG will be obtained to assess for cardiac dysrhythmia and car diac ischemia. CT scan of the brain will be obtained to assess for intracranial bleeding and stroke. Chest x-ray will be obtained to assess for pneumonia or bronchitis. CBC will be obtained to assessfor leukocytosis and anemia. Basic metabolic profile will be obtained to assess for electrolyte abnormality and renal function. High-sensitivity troponin will be obtained to assess for cardiac ischemia. 2-hour repeat high-sensitivity troponin will be obtained to assess for ongoing cardiac ischemia.Serum lactate will be obtained to assess for sepsis. Urinalysis will be obtained to assess for urinary tract infection and hematuria. COVID-19, influenza, and RSV PCR will be obtained to assess for viral illness. Orthostatic vital signs will be obtained to assess for dehydration and hypovolemia. History & Record Review Additional record(s) reviewed:: Prior inpatient record, Prior ED visit and Priorlabs Lab Data Attestation: I reviewed the patient's lab results. Lab results narrative: CBC was reviewed. There is a mild leukocytosis of 11.1. Hemoglobin was slightly low at 12.0 and hematocrit was 35.9. Basic metabolic profile was reviewed. CO2 was slightly low at 18 and anion gap wasslightly elevated at 16. The remainder is within normal limits. Serum lactate was reviewed and was normal at 1.0. Initial high-sensitivity troponin was reviewed and was elevated at 309. Urinalysis was reviewed. There is no evidence of urinary tract infection or hematuria. Labs: Laboratory Results - last 24 hr 11/05/24 11/06/24 11/06/24 16:12 09:32 09:43 WBC 11.1 H RBC 3.22 L Hgb 12.0 L Hct 35.9 L MCV 111.5 H MCH 37.3 H MCHC 33.4 RDW Std Deviation 63.5 H RDW Coeff of Christian 15.4 H Plt Count 406 MPV 9.6 Immature Gran % (Auto) 0.700 Neut % (Auto) 71.1 H Lymph % (Auto) 9.4 L Horry % (Auto) 13.8 H Eos % (Auto) 4.6 Baso % (Auto) 0.4 Absolute Neuts (auto) 7.9 H Absolute Lymphs (auto) 1.04 Nucleated RBC % 0 Sodium 136 Potassium 4.5 Chloride 103 Carbon Dioxide 18.0 L Anion Gap 16 H BUN 19 Creatinine 1.19 Estim Creat Clear Calc 56.25 Est GFR (MDRD) Non-Af 63 BUN/Creatinine Ratio 16.3 Glucose 101 H Hemoglobin A1c 5.5 Lactic Acid Calcium 8.2 Troponin T High Sens 309 H* D Troponin T Hi Sens 2 Hr Urine Color Urine Clarity Urine pH Ur Specific Ignacio Urine Protein Urine Glucose (UA) Urine Ketones Urine Occult Blood Urine Nitrite Urine Bilirubin Urine Urobilinogen Ur Leukocyte Esterase Urine RBC Urine WBC Ur Squamous Epith Cells Urine Bacteria Urine Mucus Hepatitis C Antibody Cancelled 11/06/24 11/06/24 11/06/24 10:00 10:17 11:25 WBC RBC Hgb Hct MCV MCH MCHC RDW Std Deviation RDW Coeff of Christian Plt Count MPV Immature Gran % (Auto) Neut % (Auto) Lymph % (Auto) Horry % (Auto) Eos % (Auto) Baso % (Auto) Absolute Neuts (auto) Absolute Lymphs (auto) Nucleated RBC % Sodium Potassium Chloride Carbon Dioxide Anion Gap BUN Creatinine Estim Creat Clear Calc Est GFR (MDRD) Non-Af BUN/Creatinine Ratio Glucose Hemoglobin A1c Lactic Acid 1.0 Calcium Troponin T High Sens Troponin T Hi Sens 2 Hr 281 H* Urine Color Yellow Urine Clarity Clear Urine pH 6.0 Ur Specific Ignacio 1.015 Urine Protein 15 H Urine Glucose (UA) Normal Urine Ketones Negative Urine Occult Blood 10 H Urine Nitrite Negative Urine Bilirubin Negative Urine Urobilinogen Normal Ur Leukocyte Esterase Negative Urine RBC 0 SEEN Urine WBC 0 SEEN Ur Squamous Epith Cells 0 SEEN Urine Bacteria 1+ Urine Mucus 0 SEEN Hepatitis C Antibody Radiography Chest X-Ray - ED: 1 View, Read by ED Physician, Read by Radiologist and No AcuteDisease Diagnostic Testing: Clinical Impression(s) from Imaging Studies Brain CT 11/06/24 09:43 IMPRESSION: No acute intracranial abnormalities. Reading Location: [facility] Chest X-Ray 11/06/24 09:54 IMPRESSION: The cardiomediastinal silhouette is stable, with a tortuous aorta noted. No evidence of cardiomegaly. 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 Minimal areas of linear scarring or discoid atelectasis are seen in the right lower lung. Lungs otherwise appear clear of acute disease. No pleural effusion or pneumothorax is noted. No interval osseous change is seen. Reading Location: [address] scan of the brain was obtained. There is no acute intracranial abnormality. This was interpretedby the radiologist and was also independently reviewed by myself. Portable 1 view chest x-ray was obtained. On my independent interpretation, lung segal shows areasof atelectasis in the right lower lobe. There is normalcardiac silhouette. Bony thorax is normal. There is no acute process noted. Radiologist also interpreted the x-ray and agrees. EKG Initial EKG: Attestation: I personally reviewed and interpreted this EKG as follows: Interpretation: Sinus Bradycardia (56), RBBB and S-T Depression (V2, V3) Comments: EKG was obtained. On my independent interpretation, shows a sinus bradycardia with a rateof 56. ME interval was normal at 160 ms. QRS interval was slightly prolonged at 130 ms. QTc interval was normal at 428 ms. [place] was normal. There is right bundle branch block pattern noted. There is mild ST depression in leads V2 and V3. Prior EKG tracings: available for review Prior: Changed (The ST depression in leads V2 is new compared to previous EKG dated 08/03/2024.) Management Discussion w/another healthcare provider: Hospitalist (Dr. Mcbride) and [employer] (Dr. Garrett) Treatment and Re-Evaluation :: Patient was given IV fluids. Patient was given a dose of meclizine. Patient was given aspirin. Orthostatic vital signs were obtained and were essentially within normal limits. Case was discussed withDr. Garrett. He recommended starting the patient on heparin. He recommended admission to the hospital for possible heart catheterization. Patient understands and is agreeable with the plan. All questio ns were answered. Case was discussed with the hospitalist. She will admit the patient to her service. Critical Care Time Critical Care Time: Yes Critical care time (excluding procedures): 30-74 minutes (34), Including time spent:, Discussing w/Patient &/or Family/Litigation Examiner, Discussing w/Consultants, Arranging Admission or Transfer and Performing Direct Patient Care at Bedside Discharge Plan Dx/Rx/DC Orders Clinical Impression: Non-STEMI (non-ST elevated myocardial infarction), Hypertension, CAD (coronary artery disease) Disposition Disposition: Acute Care Hospital [facility] Discharge Date/Time: 11/06/24 12:55 What to do if you have Problems For any increased pain, shortness of breath, bleeding, nausea or vomiting, chestpain, or any unexpected problems, contact your Primary Care Provider. Call [facility] ([phone]) or report tothe closest Emergency Room. Call 911 if necessary. 11/06/24 1650 Cosigner Signature (if applicable): CC: Dr. Brien Singer MD ~ Signed [facility]09-25-2025 History and physical note [facility] Medical Records Department [address] [place] [address] H&P Exam - Hospitalist 11/06/24 1141 MR#: [id number] Acct: [id number] Name: HUSAM BARROW Rep #:[id number] : 1950 74 From: Katty Mcbride DO PCP: Dr. Brien Singer MD Status:AD M IN Location: [place] [address]- 1 HPI - General General Date of Admission: 11/06/24 Date of Service: 11/06/24 Chief Complaint: Lightheadedness HPI Narrative HUSAM BARROW, is a 74 M who presented to the emergency department at [facility] on 11/06/2024 after an episode of lightheadedness/disequilibrium and emesis. Patient's never had anything quite this significant previously. He stated he had episode that was very mild and hepresented to the emergency department in July at that time it was felt to be an adverse drug reaction. He stated he had some very mild sensation of being off balance when he got out of bed in the morning and then went to a wedding. Afterthe service he was walking out and symptoms got very severe he had an epis ode ofemesis and then was brought to the emergency department. He had no associated diaphoresis or shortness of breath. He denied any chest pain. He denied any tingling, numbness, weakness anywhere. He had no changes in his bowels and there was no blood in his vomitus. Vital signs on presentation showed a temperature of 98, heart rate 57, respiratory rate was 18, blood pressure initially was 82/47 but repeat after fluids was 126/84, orthostatic vitals were unremarkable, pulse ox was 97% on room air. CBC showed a mild white count elevation of 11.1 with a hemoglobin of 12.0 which appears to be consistent with his baseline. He had a very mild left shift with a 71.1% neutrophilia. He also had a monocytosis at 13.8% which appears to be chronic as well. Chemistry panel showed slightly serum anion gap at 16 with a bicarb of 18. Serum creatinine was normal. Glucosewas 101 with ahemoglobin A1c of 5.5. Lactic acid was normal at 1.0. Initial troponin was 309with a delta of 281-02/15 troponin at 300. UA is not suggestive of infection. EKG showed some new ST depression and a chronic right bundle branch block in theanterior septal leads when compared with previous EKG from July 2024. Given histroponin elevation, symptoms, and EKG changes cardiology recommended urgent cardiac catheterization. He was taken for cardiac catheterization and was foundto have a 10% proximal LAD lesion and a 30 to 40% mid RCA lesion. Medical therapy was recommended. I followed up with the patient after cardiac catheterization. He states his disequilibrium had resolved. He denied any chest pain, shortness of breath, diaphoresis, nausea or vomiting and stated he felt well and wanted to go home. [facility] Medical History Other abnormal clinical finding Fatigue Generalized weakness Adverse drug reaction Symptomatic bradycardia Generalized weakness Syncope and collapse High platelet count CAD (coronary artery disease) Hypertension Angina of effort Home Medications ?Medication ?Instructions ?Recorded ?Last Taken ?Type diltiazem HCl 180 mg 1 cap PO DAILY Check with pr imary 11/28/19 11/06/24 History capsule,extended release 24 hr doctor aspirin 81 mg tablet,delayed 81 mg PO DAILY 06/24/22 0 11/06/24 History release atorvastatin 40 mg tablet 20 mg PO DAILY 06/24/2210/14 History bupropion HCl 300 mg 24 hr tablet, 300 mg PO DAILY 11/06/24 History extended release folic acid 1 mg tablet 2 mg PO DAILY 06/24/2211/06 History losartan 50 mg tablet 25 mg PO DAILY 06/24/2210/14 History carvedilol 3.125 mg tablet 6.25 mg (2 x 3.125 mg) PO D AILY #1 08/03/24 11/06/24 Rx TAB hydroxyurea 500 mg capsule 500 mg PO DAILY 08/03/24 History Allergy/AdvReac Type Severity Reaction Status Date / Time No Known Allergies Allergy Verified 11/06/24 09:30 no significant family history Surgical History S/P ORIF (open reduction internal fixation) fracture Social History Smoking Status: Never smoker ROS Constitutional Constitutional: Denies anorexia, change in weight, chills, fatigue, fever(s), malaise, night sweats, weakness or other Eyes Eyes: Denies blurry vision, change in eye color, change in vision, discharge from eye(s), double vision, erythema, eye pain, loss of vision or other ENT HEENT: Denies abnormal hearing, dysphagia, ear pain, epistaxis, headache(s), hearing loss, nasal congestion, nasal discharge, post nasal drip, sinus pressure, sore throat or other Cardiovascular Cardiovascular: Denies chest pain, claudication, dyspnea on exertion, edema, lightheadedness, orthopnea, palpitations, paroxysmal nocturnal dyspnea, rapid heart rate, syncope or other Respiratory/Chest Respiratory/Chest: Denies cough, dyspnea, excessive phlegm production, hemoptysis, productive cough, shortness of breath at rest, shortness of breath with exertion, wheezing or other Gastrointestinal Gastrointestinal: Reports nausea and vomiting; Denies abdominal pain, coffee ground emesis, constipation, diarrhea, dyspepsia, hematemesis, hematochezia, loose stools, melena or other Genitourinary Genitourinary: Denies burning urination, difficulty urinating, dysuria, hematuria, nocturia, urinary frequency, urinary hesitancy, urinary incontinence,urinary urgency or other Musculoskeletal Musculoskeletal: Denies arthralgias, back pain, joint pain, joint stiffness, joint swelling, myalgias, neck pain or other Neurologic Neurologic: Reports disequilibrium; Denies abnormal gait, abnormal speech, confusion, dizziness, focal weakness, headache(s), numbness, paresthesias, seizure-like activity, seizures, syncope, tingling, tremor(s) or other Psychiatric Psychiatric: Denies anxiety, depression, homicidal ideation, suicidal ideation or other Endocrine Endocrinology: Denies change in body appearance, cold intolerance, excessive sweating, heat intolerance, polydipsia, polyuria or other Hematologic/Lymphatic Hematologic/Lymphatic: Denies anemia, easy bleeding, easy bruising, lymphadenopathy or other Allergic/Immunologic Allergic/Immunologic: Denies rhinitis, hives, eczemia, asthma or other Vital Signs Vital Signs Vital Signs: 11/06/24 09:25 11/06/24 10:05 11/06/24 11:25 Temperature 98 F Temperature Source Oral Pulse Rate 57 L 57 L Pulse Rate [Lying] 57 L Pulse Rate [Sitting (for 1 minute prior to obtaining)] 61 Pulse Rate [Standing (for 1 minute prior to obtaining)] 61 Respiratory Rate 9 L 18 Blood Pressure 82/47 L 126/84 H Blood Pressure [Lying] 102/68 Blood Pressure [Sitting (for 1 minute prior to obtaining)] 111/70 Blood Pressure [Standing (for 1 minute prior to obtaining)] 91/75 Blood Pressure Mean 58 98 Blood Pressure Mean [Lying] 79 Blood Pressure Mean [Sitting (for 1 minute prior to obtaining)] 83 Blood Pressure Mean [Standing (for 1 minute prior to obtaining)] 80 Pulse Ox 97 97 Oxygen Delivery Method Room Air Room Air Weight Weight: 85.9 kg Body Mass Index (BMI) 26.4 Physical Exam Const alert, oriented x3, no apparent distress, average body habitus and well nourished Constitutional Narrative: Very pleasant, elderly, white male, lying in bed, family at bedside, 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 echocardiogram, appears comfortable, nontoxic General Appearance: cooperative HEENT normocephalic, head/scalp atraumatic, hearing grossly normal bilaterally and moist oral mucous membranes HEENT Narrative: Dentition is fair for age, Mallampati is 2, no thrush Eyes conjunctivae normal Eyes Narrative: No scleral icterus Neck supple Neck Narrative: Trachea midline, no lymphadenopathy Resp normal respiratory effort, no retractions, no use of accessory muscles and clearto auscultation bilaterally Auscultation: Negative for rales, rhonchi or wheezes Cardio regular rate, regular rhythm, S1 normal heart sound, S2 normal heart sound, no murmurs, no rub, no gallops and no clicks GI normal to inspection, nondistended, normoactive bowel sounds, soft to palpation and non-tender Extremity no clubbing, cyanosis or edema Extremity Narrative: 2+ pedal pulses, right radial compression device in place postcardiac catheterization, left radial pulses 2+ Neuro moves all extremities and no focal motor deficits Speech: speech normal Psych affect normal Psych Narrative: Very pleasant, jovial, eye contact is good and patient interacts appropriately Results Lab / Micro Data 11/06/24 09:32 11/06/24 09:32 Labs: Laboratory Results - last 24 hr 11/06/24 09:32: WBC 11.1 H, RBC 3.22 L, Hgb 12.0 L, Hct 35.9 L, MCV 111.5 H, MCH37.3 H, MCHC 33.4, RDW Std Deviation 63.5 H, RDW Coeff of Christian 15.4 H, Plt Count 406, MPV 9.6, Immature Gran % (Auto) 0.700, Neut % (Auto) 71.1 H, Lymph % (Auto)9.4 L, Horry % (Auto) 13.8 H, Eos % (Auto) 4.6, Baso % (Auto) 0.4, Absolute Neuts(auto) 7.9 H, Absolute Lymphs (auto) 1.04, Nucleated RBC % 0, Sodium 136, Potassium 4.5, Chloride 103, Carbon Dioxide 18.0 L, Anion Gap 16 H, BUN 19, Creatinine 1.19, Estim Creat Clear Calc 56.25, Est GFR (MDRD) Non-Af 63, BUN/Creatinine Ratio 16.3, Glucose 101 H, Calcium 8.2, Troponin T High Sens 309 H* D 11/06/24 10:00: Lactic Acid 1.0 11/06/24 10:17: Urine Color Yellow, Urine Clarity Clear, Urine pH 6.0, Ur Specific Ignacio 1.015, Urine Protein 15 H, Urine Glucose (UA) Normal, Urine Ketones Negative, Urine Occult Blood 10 H, UrineNitrite Negative, Urine Bilirubin Negative, Urine Urobilinogen Normal, Ur Leukocyte Esterase Negative, Urine RBC 0 SEEN, Urine WBC 0 SEEN, Ur Squamous Epith Cells 0 SEEN, Urine Bacteria 1+, Urine Mucus 0 SEEN Micro: Microbiology 11/06/24 10:00 Mucosa - Nose SARS-CoV-2, Influenza & RSV (PCR) - Final Rhythm Strip Rhythm Strip: Sinus Rhythm Rate: 59 Imaging Radiology Impression Brain CT 11/06/24 09:43 IMPRESSION: No acute intracranial abnormalities. Reading Location: [facility] Chest X-Ray 11/06/24 09:54 IMPRESSION: The cardiomediastinal silhouette is stable, with a tortuous aorta noted. No evidence of cardiomegaly. 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 Minimal areas of linear scarring or discoid atelectasis are seen in the right lower lung. Lungs otherwise appear clear of acute disease. No pleural effusion or pneumothorax is noted. No interval osseous change is seen. Reading Location: [address] Assessment & Plan Assessment/Plan (1) Non-STEMI (non-ST elevated myocardial infarction): (2) CAD (coronary artery disease): (3) Leukocytosis: (4) Disequilibrium: PLAN: Plan NSTEMI - Cardiac catheterization is relatively despite EKG changes and troponin elevation - Cath with 10% proximal LAD stenosis and 30 to 40% mid RCA stenosis--> medical therapy is recommended - Echocardiogram pending - Continue aspirin - Continue home statin - Check hemoglobin A1c - Check lipid panel - Per discussion with cardiology given essentially negative cardiac catheterization sed rate and CRP ordered if they are elevated myocarditis shouldbe considered and patient should be placed on goal-directed therapy with follow-up echocardiogram in 6 weeks and patient should follow-up with cardiology here prior to leaving for [place] where he goes for the winter Leukocytosis - Very mild and suspect reactive - Patient feels fine at this time - No further workup at this time - Repeat CBC in a.m. Disequilibrium - Resolved - Monitor clinically Essential hypertension/hyperlipidemia - Continue home carvedilol - Continue home losartan - Continue home diltiazem - Monitor closely as patient is on 2 rate modulating drugs and does have a documented history of symptomatic bradycardia--> currently stable Thrombocytosis - Patient on hydroxyurea for this - Ongoing outpatient follow-up as previously directed - Continue folic acid Depression - Continue home Wellbutrin DVT prophylaxis - Heparin drip discontinued - Placed on subcu Lovenox CODE STATUS - Full code verified Charges/Coding Visit Charges Inpatient E&M: 07005 Init Hosp L2 11/06/24 1652 Cosigner Signature (if applicable): CC: Dr. Katty Mcbride DO; Dr. Brien Singer MD~ Signed [facility]09-25-2025 Consult note Author Lance Garrett [facility] Note Date/Time November 06, 2024 11:40am [facility] Medical Records Department [address] [place] [address] Consultation - Cardiology 11/06/24 1131 MR#: [id number] Acct: [id number] Name: HUSAM BARROW Rep #:[id number] : 1950 74 From: Lance Garrett MD PCP: Dr. Brien Singer MD Status:RE G ER Location: ED Assessment & Plan Assessment/Plan (1) Non-STEMI (non-ST elevated myocardial infarction): PLAN: Patient presents with a history of nausea and vomiting associated with dizziness and elevated troponins at 309 with hypotension. His ECG shows new ST segment depression and chronic right bundle branch block in his anterior septal leads. The ST depressions are more prominent than on the July 2024 ECG. Given the patient's presumed history of medically treated coronary artery disease, elevated troponins, the nausea vomiting and hypotension, and his ECG showing the subtle changes I recommend the patient proceed with urgent left heart catheterization. The procedure risk/benefit and alternatives were explained to the patient and his son and they voiced understanding and agreed toproceed. (2) Hypertension: QUALIFIERS: Hypertension type: primary hypertension Qualified Code(s): I10 - Essential (primary) hypertension PLAN: Blood pressure was low upon presentation it is currently normalized after IV fluids. (3) High platelet count: PLAN: Patient carries a history of thrombocytosis he is currently being treated with hydroxyurea. PLAN: Plan 1. Recommend urgent left heart catheterization today. Dr. Duran to perform. 2. Will follow-up with further recommendations once results of the catheter areavailable. HPI Consult Data Date of Consult: 11/06/24 HPI Narrative Reason for Consultation: Acute coronary syndrome HPI Narrative: HUSAM BARROW, is a 74 M who presents with a sudden onset of nausea with vomiting and dizziness and feeling off balance this morning. The patient presented to the emergency department with a blood pressure 82/47 and received fluids his blood pressure is 125/70. Heart rate is in the 55-60 bpm range in sinus rhythm. Original ECG shows there is chronic right bundle branch block with ST depression in V2 through V4. Initial troponin was 309. The patient carries a history of bradycardia and had been hospitalized back in July 2024 with syncope/near syncope and had his carvedilol discontinued. It was reinstituted at some point in time and he is now back on carvedilol. The patient carries a history of thrombocytosis and is on hydroxyurea. He also has a history of hypertension and is treated with a combination of carvedilol diltiazem and losartan. The patient reports that he had a left heart catheterization done December 2023 in [place]. 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 That catheterization did not show anything of any significance apparently it was done after an abnormal stress test which was donebecause of his progressive fatigue. Most of the information is obtained from the patient and his son who is his power of electrical continuity tester. The patient carries a history of 26 years ago having some angina damage to his heart as a way he describes it. He has never had a stent or bypass surgery but he has had at least 2 heart catheterizations that resulted in no interventions by his report. The patient is on aspirin and atorvastatin. Currently the patient is asymptomatic lying on the gurney in the emergency department. [facility] Medical History Fatigue Generalized weakness Adverse drug reaction Symptomatic bradycardia Generalized weakness Syncope and collapse High platelet count CAD (coronary artery disease) Hypertension Angina of effort Home Medications ?Medication ?Instructions ?Recorded ?Last Taken ?Type diltiazem HCl 180 mg 1 cap PO DAILY Check with pr imary 11/28/19 11/27/19 08:00 History capsule,extended release 24 hr doctor aspirin 81 mg tablet,delayed 81 mg PO DAILY 06/24/22 U nknown History release atorvastatin 40 mg tablet 20 mg PO DAILY 06/24/22 Unkn own History bupropion HCl 300 mg 24 hr tablet, 300 mg PO DAILY Unknown History extended release folic acid 1 mg tablet 1 mg PO DAILY 06/24/22 Unkno wn History losartan 50 mg tablet 25 mg PO DAILY 06/24/22 Unkn own History carvedilol 3.125 mg tablet 6.25 mg (2 x 3.125 mg) PO D AILY #1 08/03/24 Unknown Rx TAB hydroxyurea 500 mg capsule 500 mg PO DAILY 08/03/24 Un known History Allergy/AdvReac Type Severity Reaction Status Date / Time No Known Allergies Allergy Verified 11/06/24 09:30 Surgical History S/P ORIF (open reduction internal fixation) fracture Social History Smoking Status: Never smoker ROS Constitutional Constitutional: Reports as per HPI Eyes Eyes: Reports systems reviewed and no addt'l complaints, except as documented ENT HEENT: Reports systems reviewed and no addt'l complaints, except as documented Cardiovascular Cardiovascular: Reports as per HPI Respiratory/Chest Respiratory/Chest: Reports as per HPI Gastrointestinal Gastrointestinal: Reports as per HPI Genitourinary Genitourinary: Reports systems reviewed and no addt'l complaints, except as documented Musculoskeletal Musculoskeletal: Reports systems reviewed and no addt'l complaints, except as documented Integumentary Integumentary: Reports systems reviewed and no addt'l complaints, except as documented Neurologic Neurologic: Reports systems reviewed and no addt'l complaints, except as documented Psychiatric Psychiatric: Reports systems reviewed and no addt'l complaints, except as documented Endocrine Endocrinology: Reports systems reviewed and no addt'l complaints, except as documented Hematologic/Lymphatic Hematologic/Lymphatic: Reports as per HPI Allergic/Immunologic Allergic/Immunologic: Reports systems reviewed and no addt'l complaints, except as documented Physical Exam Const alert and oriented x3 HEENT normocephalic Eyes EOMs intact bilaterally Neck no JVD and no carotid bruits Chest inspection of chest normal Resp normal respiratory effort and clear to auscultation bilaterally Cardio Rate: regular rate Rhythm: regular rhythm Heart Sounds: S1 normal and S2 normal; Negative for click, gallop or murmur Peripheral Pulses: radial pulses present bilateral 2+ and femoral pulses presentbilateral 2+ GI normal to inspection, nondistended, normoactive bowel sounds Extremity no pedal edema Neuro Neuro Narrative: Alert and oriented x 3 Psych mental status grossly normal Charges/Coding Visit Charges Inpatient E&M: 13210 Init Hosp L2 Objective Data Vital Signs: Vital Signs Temp Pulse Resp BP Pulse Ox O2 Del Method 98 F 57 L 18 126/84 H 97 Room Air 11/06/24 09:11/06/24 11:11/06/24 11:11/06/24 11:11/06/24 11:11/06/24 11:25 Oxygen Delivery Method Room Air Weight: 189 lb 6.033 oz Body Mass Index (BMI) 26.4 Intake & Output: Intake and Output for Last 24 Hours 11/04/24 11/05/24 11/06/24 23:59 23:59 23:59 Intake Total 600 / 600 Balance 600 / 600 Lab / Micro Data Attestation: I reviewed the patient's lab results. 11/06/24 09:32 11/06/24 09:32 Labs: Laboratory Results - last 24 hr 11/06/24 09:32: WBC 11.1 H, RBC 3.22 L, Hgb 12.0 L, Hct 35.9 L, MCV 111.5 H, MCH37.3 H, MCHC 33.4, RDW Std Deviation 63.5 H, RDW Coeff of Christian 15.4 H, Plt Count 406, MPV 9.6, Immature Gran % (Auto) 0.700, Neut % (Auto) 71.1 H, Lymph % (Auto)9.4 L, Horry % (Auto) 13.8 H, Eos % (Auto) 4.6, Baso % (Auto) 0.4, Absolute Neuts(auto) 7.9 H, Absolute Lymphs (auto) 1.04, Nucleated RBC % 0, Sodium 136, Potassium 4.5, Chloride 103, Carbon Dioxide 18.0 L, Anion Gap 16 H, BUN 19, Creatinine 1.19, Estim Creat Clear Calc 56.25, Est GFR (MDRD) Non-Af 63, BUN/Creatinine Ratio 16.3, Glucose 101 H, Calcium 8.2, Troponin T High Sens 309 H* D 11/06/24 10:00: Lactic Acid 1.0 11/06/24 10:17: Urine Color Yellow, Urine Clarity Clear, Urine pH 6.0, Ur Specific Ignacio 1.015, Urine Protein 15 H, Urine Glucose (UA) Normal, Urine Ketones Negative, Urine Occult Blood 10 H, Urine Nitrite Negative, Urine Bilirubin Negative, Urine Urobilinogen Normal, Ur Leukocyte Esterase Negative, Urine RBC 0 SEEN, Urine WBC 0 SEEN, Ur Squamous Epith Cells 0 SEEN, Urine Bacteria 1+, Urine Mucus 0 SEEN Micro: Microbiology 11/06/24 10:00 Mucosa - Nose SARS-CoV-2, Influenza & RSV (PCR) - Final Rhythm Strip Rhythm Strip: Sinus Rhythm Rate: 59 Cardiology Labs/Tests 11/06/24 09:32: WBC 11.1 H, RBC 3.22 L, Hgb 12.0 L, Hct 35.9 L, MCV 111.5 H, MCH37.3 H, MCHC 33.4, Plt Count 406, MPV 9.6, Immature Gran % (Auto) 0.700, Neut % (Auto) 71.1 H, Lymph % (Auto) 9.4 L, Horry % (Auto) 13.8 H, Eos % (Auto) 4.6, Baso % (Auto) 0.4, Absolute Neuts (auto) 7.9 H, Nucleated RBC % 0, Sodium 136, Potassium 4.5, Chloride 103, Carbon Dioxide 18.0 L, Anion Gap 16 H, BUN 19, Creatinine 1.19, Est GFR (MDRD) Non-Af 63, BUN/Creatinine Ratio 16.3, Glucose 101 H, Calcium 8.2 11/06/24 10:00: Lactic Acid 1.0 11/06/24 10:17: Urine Color Yellow, Urine Clarity Clear, Urine pH 6.0, Ur Specific Ignacio 1.015, Urine Protein 15 H, Urine Glucose (UA) Normal, Urine Ketones Negative, Urine Occult Blood 10 H, Urine Nitrite Negative, Urine Bilirubin Negative, Urine Urobilinogen Normal, Ur Leukocyte Esterase Negative, Urine RBC 0 SEEN, Urine WBC 0 SEEN Rhythm: EKG: ECHO: Stress Test: Cardiac Cath: PCI: CT Surgery: Holter monitor: EPS: PPM: CXR: Chest CT Scan: Radiography Diagnostic Testing: Radiology Impression Brain CT 11/06/24 09:43 IMPRESSION: No acute intracranial abnormalities. Reading Location: [facility] Chest X-Ray 11/06/24 09:54 IMPRESSION: The cardiomediastinal silhouette is stable, with a tortuous aorta noted. No evidence of cardiomegaly. 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 Minimal areas of linear scarring or discoid atelectasis are seen in the right lower lung. Lungs otherwise appear clear of acute disease. No pleural effusion or pneumothorax is noted. No interval osseous change is seen. Reading Location: [id number] Risk Score for UA/STEMI Assesmment (YES = 1) Risk Stratification Applicable: Yes Age > or = 65: Yes > or = 3 CAD risk factors (HTN, Hypercholesterolemia, Diabetes, family hx, current smoker): No Known CAD (Stenosis > or = 50%): No ASA used in past 7 days: Yes Severe angina (> or = 2 episodes in 24 hrs): No EKG ST change > or = 0.5mm: Yes Positive cardiac markers: Yes Score MUKUND Risk Score of mortality/ recurrent ischemic event over the next 14 days: 4 = 19.9% - Intermediate 11/06/24 1140 <Electronically signed by Lance Garrett MD> Cosigner Signature (if applicable): CC: Dr. Brien Singer MD~ Signed [facility] Work Phone: [phone]) 973-754109-25-2025 Consult note [facility] Medical Records Department [address] [place] [address] Consultation - Cardiology 11/06/24 1131 MR#: [id number] Acct: [id number] Name: HUSAM BARROW Rep #:[id number] : 1950 74 From: Lance Garertt MD PCP: Dr. Brien Singer MD Status:RE G ER Location: ED Assessment & Plan Assessment/Plan (1) Non-STEMI (non-ST elevated myocardial infarction): PLAN: Patient presents with a history of nausea and vomiting associated with dizziness and elevatedtroponins at 309 with hypotension. His ECG shows new ST segment depression and chronic right bundlebranch block in his anterior septal leads. The ST depressions are more prominent than on the July 2024 ECG. Given the patient's presumed history of medically treated coronary artery disease, elevated troponins, the nausea vomiting and hypotension, and his ECG showing the subtle changes I recommend the patient proceed with urgent left heart catheterization. The procedure risk/benefit and alternatives wereexplained to the patient and his son and they voiced understanding and agreed toproceed. (2) Hypertension: QUALIFIERS: Hypertension type: primary hypertension Qualified Code(s): I10 - Essential (primary) hypertension PLAN: Blood pressure was low upon presentation it is currently normalized after IV fluids. (3) High platelet count: PLAN: Patient carries a history of thrombocytosis he is currently being treated with hydroxyurea. PLAN: Plan 1. Recommend urgent left heart catheterization today. Dr. Duran to perform. 2. Will follow-up with further recommendations once results of the catheter areavailable. HPI Consult Data Date of Consult: 11/06/24 HPI Narrative Reason for Consultation: Acute coronary syndrome HPI Narrative: HUSAM BARROW, is a 74 M who presents with a sudden onset of nausea with vomiting and dizziness and feeling off balance this morning. The patient presented to the emergency department with a bloodpressure 82/47 and received fluids his blood pressure is 125/70. Heart rate is in the 55-60 bpm range in sinus rhythm. Original ECG shows there is chronic right bundle branch block with ST depressionin V2 through V4. Initial troponin was 309. The patient carries a history of bradycardia and had been hospitalized back in July 2024 with syncope/near syncope and had his carvedilol discontinued. It was reinstituted at some point in time and he is now back on carvedilol. The patient carries a history of thrombocytosis and is on hydroxyurea. He also has a history of hypertension and is treated with a combination of carvedilol diltiazem and losartan. The patient reports that he had a left heart catheterization done December 2023 in [place]. 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 That catheterization did not show anything of any significance apparently it was done after an abnormal stress test whichwas donebecause of his progressive fatigue. Most of the information is obtained from the patient and his son who is his power of electrical continuity tester. The patient carries a history of 26 years ago having some angina damage to his heart as a way he describes it. He has never had a stent or bypass surgery but he has had at least 2 heart catheterizations that resulted in no interventions by his report. The patient is on aspirin and atorvastatin. Currently the patient is asymptomatic lying on the gurney in the emergency department. [facility] Medical History Fatigue Generalized weakness Adverse drug reaction Symptomatic bradycardia Generalized weakness Syncope and collapse High platelet count CAD (coronary artery disease) Hypertension Angina of effort Home Medications ?Medication ?Instructions ?Recorded ?Last Taken ?Type diltiazem HCl 180 mg 1 cap PO DAILY Check with pr imary 11/28/19 11/27/19 08:00 History capsule,extended release 24 hr doctor aspirin 81 mg tablet,delayed 81 mg PO DAILY 06/24/22 U nknown History release atorvastatin 40 mg tablet 20 mg PO DAILY 06/24/22 Unkn own History bupropion HCl 300 mg 24 hr tablet, 300 mg PO DAILY Unknown History extended release folic acid 1 mg tablet 1 mg PO DAILY 06/24/22 Unkno wn History losartan 50 mg tablet 25 mg PO DAILY 06/24/22 Unkn own History carvedilol 3.125 mg tablet 6.25 mg (2 x 3.125 mg) PO D AILY #1 08/03/24 Unknown Rx TAB hydroxyurea 500 mg capsule 500 mg PO DAILY 08/03/24 Un known History Allergy/AdvReac Type Severity Reaction Status Date / Time No Known Allergies Allergy Verified 11/06/24 09:30 Surgical History S/P ORIF (open reduction internal fixation) fracture Social History Smoking Status: Never smoker ROS Constitutional Constitutional: Reports as per HPI Eyes Eyes: Reports systems reviewed and no addt'l complaints, except as documented ENT HEENT: Reports systems reviewed and no addt'l complaints, except as documented Cardiovascular Cardiovascular: Reports as per HPI Respiratory/Chest Respiratory/Chest: Reports as per HPI Gastrointestinal Gastrointestinal: Reports as per HPI Genitourinary Genitourinary: Reports systems reviewed and no addt'l complaints, except as documented Musculoskeletal Musculoskeletal: Reports systems reviewed and no addt'l complaints, except as documented Integumentary Integumentary: Reports systems reviewed and no addt'l complaints, except as documented Neurologic Neurologic: Reports systems reviewed and no addt'l complaints, except as documented Psychiatric Psychiatric: Reports systems reviewed and no addt'l complaints, except as documented Endocrine Endocrinology: Reports systems reviewed and no addt'l complaints, except as documented Hematologic/Lymphatic Hematologic/Lymphatic: Reports as per HPI Allergic/Immunologic Allergic/Immunologic: Reports systems reviewed and no addt'l complaints, except as documented Physical Exam Const alert and oriented x3 HEENT normocephalic Eyes EOMs intact bilaterally Neck no JVD and no carotid bruits Chest inspection of chest normal Resp normal respiratory effort and clear to auscultation bilaterally Cardio Rate: regular rate Rhythm: regular rhythm Heart Sounds: S1 normal and S2 normal; Negative for click, gallop or murmur Peripheral Pulses: radial pulses present bilateral 2+ and femoral pulses presentbilateral 2+ GI normal to inspection, nondistended, normoactive bowel sounds Extremity no pedal edema Neuro Neuro Narrative: Alert and oriented x 3 Psych mental status grossly normal Charges/Coding Visit Charges Inpatient E&M: 81033 Init Hosp L2 Objective Data Vital Signs: Vital Signs Temp Pulse Resp BP Pulse Ox O2 Del Method 98 F 57 L 18 126/84 H 97 Room Air 11/06/24 09:25 11/06/24 11:25 11/06/24 11:25 11/06/24 11:25 11/06/24 11:11/06/24 11:25 Oxygen Delivery Method Room Air Weight: 189 lb 6.033 oz Body Mass Index (BMI) 26.4 Intake & Output: Intake and Output for Last 24 Hours 11/04/24 11/05/24 11/06/24 23:59 23:59 23:59 Intake Total 600 / 600 Balance 600 / 600 Lab / Micro Data Attestation: I reviewed the patient's lab results. 11/06/24 09:32 11/06/24 09:32 Labs: Laboratory Results - last 24 hr 11/06/24 09:32: WBC 11.1 H, RBC 3.22 L, Hgb 12.0 L, Hct 35.9 L, MCV 111.5 H, MCH37.3 H, MCHC 33.4, RDW Std Deviation 63.5 H, RDW Coeff of Christian 15.4 H, Plt Count 406, MPV 9.6, Immature Gran % (Auto) 0.700, Neut % (Auto) 71.1 H, Lymph % (Auto)9.4 L, Horry % (Auto) 13.8 H, Eos % (Auto) 4.6, Baso % (Auto) 0.4, Absolute Neuts(auto) 7.9 H, Absolute Lymphs (auto) 1.04, Nucleated RBC % 0, Sodium 136, Potassium 4.5, Chloride 103, Carbon Dioxide 18.0 L, Anion Gap 16 H, BUN 19, Creatinine 1.19, Estim Creat Clear Calc 56.25, Est GFR (MDRD) Non-Af 63, BUN/Creatinine Ratio 16.3, Glucose 101 H, Calcium 8.2, Troponin T High Sens 309 H* D 11/06/24 10:00: Lactic Acid 1.0 11/06/24 10:17: Urine Color Yellow, Urine Clarity Clear, Urine pH 6.0, Ur Specific Ignacio 1.015, Urine Protein 15 H, Urine Glucose (UA) Normal, Urine Ketones Negative, Urine Occult Blood 10 H, UrineNitrite Negative, Urine Bilirubin Negative, Urine Urobilinogen Normal, Ur Leukocyte Esterase Negative, Urine RBC 0 SEEN, Urine WBC 0 SEEN, Ur Squamous Epith Cells 0 SEEN, Urine Bacteria 1+, Urine Mucus 0 SEEN Micro: Microbiology 11/06/24 10:00 Mucosa - Nose SARS-CoV-2, Influenza & RSV (PCR) - Final Rhythm Strip Rhythm Strip: Sinus Rhythm Rate: 59 Cardiology Labs/Tests 11/06/24 09:32: WBC 11.1 H, RBC 3.22 L, Hgb 12.0 L, Hct 35.9 L, MCV 111.5 H, MCH37.3 H, MCHC 33.4, Plt Count 406, MPV 9.6, Immature Gran % (Auto) 0.700, Neut % (Auto) 71.1 H, Lymph % (Auto) 9.4 L, H[place] % (Auto) 13.8 H, Eos % (Auto) 4.6, Baso % (Auto) 0.4, Absolute Neuts (auto) 7.9 H, Nucleated RBC % 0, Sodium 136, Potassium 4.5, Chloride 103, Carbon Dioxide 18.0 L, Anion Gap 16 H, BUN 19, Creatinine 1.19, Est GFR (MDRD) Non-Af 63, BUN/Creatinine Ratio 16.3, Glucose 101 H, Calcium 8.2 11/06/24 10:00: Lactic Acid 1.0 11/06/24 10:17: Urine Color Yellow, Urine Clarity Clear, Urine pH 6.0, Ur Specific Ignacio 1.015, Urine Protein 15 H, Urine Glucose (UA) Normal, Urine Ketones Negative, Urine Occult Blood 10 H, UrineNitrite Negative, Urine Bilirubin Negative, Urine Urobilinogen Normal, Ur Leukocyte Esterase Negative, Urine RBC 0 SEEN, Urine WBC 0 SEEN Rhythm: EKG: ECHO: Stress Test: Cardiac Cath: PCI: CT Surgery: Holter monitor: EPS: PPM: CXR: Chest CT Scan: Radiography Diagnostic Testing: Radiology Impression Brain CT 11/06/24 09:43 IMPRESSION: No acute intracranial abnormalities. Reading Location: [facility] Chest X-Ray 11/06/24 09:54 IMPRESSION: The cardiomediastinal silhouette is stable, with a tortuous aorta noted. No evidence of cardiomegaly. 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 Minimal areas of linear scarring or discoid atelectasis are seen in the right lower lung. Lungs otherwise appear clear of acute disease. No pleural effusion or pneumothorax is noted. No interval osseous change is seen. Reading Location: [address] [place] Risk Score for UA/STEMI Assesmment (YES = 1) Risk Stratification Applicable: Yes Age > or = 65: Yes > or = 3 CAD risk factors (HTN, Hypercholesterolemia, Diabetes, family hx, current smoker): No Known CAD (Stenosis > or = 50%): No ASA used in past 7 days: Yes Severe angina (> or = 2 episodes in 24 hrs): No EKG ST change > or = 0.5mm: Yes Positive cardiac markers: Yes Score [place] Risk Score of mortality/ recurrent ischemic event over the next 14 days: 4 = 19.9% - Intermediate 11/06/24 1140 Cosigner Signature (if applicable): CC: Dr. Brien Singer MD~ Signed [facility]09-25-2025 Radiology Diagnostic study note [facility] Imaging Services [address] [place] [address] [id number] Chest 1 View (Portable) MR#: [id number] Acct: [id number] Name: HUSAM BARROW Rep #: [id number] : 1950 M 74 From: Tuan Chandler MD PCP: Dr. Biren Singer MD Status: RE G ER Study:Chest 1 View (Portable) Date of Exam: 11/06/24 Exam# [id number] Ordering Dr: Erick Monsivais DO PROCEDURE: CHEST 1 VIEW (PORTABLE) 11/06/2024 REASON FOR EXAM: DIZZINESS TECHNIQUE: Frontal view of the chest. COMPARISON: AP chest of 08/03/2024. RAD/Chest 1 View (Portable) IMPRESSION: The cardiomediastinal silhouette is stable, with a tortuous aorta noted. No evidence of cardiomegaly. 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 Minimal areas of linear scarring or discoid atelectasis are seen in the right lower lung. Lungs otherwise appear clear of acute disease. No pleural effusion or pneumothorax is noted. No interval osseous change is seen. Reading Location: [address] CC: Dr. Erick Monsivais DO; Dr. Brien Singer MD ~ [place]: Signed [facility]09-25-2025 Radiology Diagnostic study note [facility] Imaging Services [address] [place], [place] [address] Brain/Head without Contrast MR#: [id number] Acct: [id number] Name: HUSAM BARROW Rep #: [id number] : 1950 M 74 From: Russell Rubi MD PCP: Dr. Brien Singer MD Status: RE G ER Study:Brain/Head without Contrast Date of Exa m: 11/06/24 Exam# [id number] Ordering Dr: Erick Monsivais DO PROCEDURE: BRAIN/HEAD WITHOUT CONTRAST 11/06/2024 REASON FOR EXAM: DIZZINESS TECHNIQUE: Procedure Code: CTBR Modality: CT Procedure: BRAIN/HEAD WITHOUT CONTRAST Coronal and Sagittal reconstruction series were provided. One or more dose reduction techniques were used (e.g., Automated exposure control, adjustment of the mA and/or kV according to patient size, use of iterative reconstruction technique. RADIATION DOSE SUMMARY: CTDlvol: 44.99 mGy DLP: 779.24 mGycm COMPARISON: None. FINDINGS: Brain: Extensive low density in the deep cerebral white matter most likely represents advanced chronic small vessel ischemic disease. No acute territorial infarction. No mass-effect or midline shift. Noacute orbital abnormalities. The craniocervical junction is unremarkable. No ventriculomegaly. CSF Spaces: Unremarkable. Sinuses/Mastoids: Clear. Bones: No acute bony abnormalities. CT/Brain/Head without Contrast IMPRESSION: No acute intracranial abnormalities. Reading Location: [facility] CC: Dr. Erick Monsivais DO; Dr. Brien Singer MD ~ [place]: Signed [facility]09-05-2025 History of Present illness Narrative* Alverto Edwards, - 10/17/2024 10:20 AM EDT Oncologic problem(s): 1) Thrombocytosis. HPI: The patient is a 74-year-old male with past medical history as outlined below. Patient has been noted to have an increased white blood cell count for several years. 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 Underwent a bone marrow biopsy on 02/20/2024. The report indicates myeloproliferative neoplasm with fibrosis-1. No increase in blasts were observed. FISH for BCR-ABL was negative. 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 History of prior splenectomy: No. ASA was held last week due to platelet count over 1 million. No prior history of stroke or AK. He does have a history of angina. This was evidently secondary tocoronary artery spasm. No unusual bleeding. He has been purposely trying to lose weight. Eating mostly meats, "carnivore diet." Presents for ongoing oncologic management. Interim history: Started hydroxyurea. Nausea and malaise with 1000 mg daily. Dose reduced to 500 mg and is now taking it in the evenings. Tolerating better. No reflux or abdominal pain. Has tried to lose weight. Eats about twice a day. Gets early satiety. No dysphagia. PAST MEDICAL HISTORY Diagnosis Date Aortic stenosis echo 2024 Blood in stool Chewing tobacco use Coronary artery spasm Hypertension 02/02/2010 Myeloproliferative neoplasm (HCC) bone marrow biospy 2024 Osteoarthritis, knee bilateral, seeing [facility] Overweight (BMI 25.0-29.9) Pure hypercholesterolemia Syncope 1999 x3 Unspecified asthma(493.90) Unspecified essential hypertension PAST SURGICAL HISTORY Procedure Laterality Date ARTHROSCOPY KNEE DIAGNOSTIC W/WO SYNOVIAL BX SPX Arthroscopy, knee COLONOSCOPY 2008 normal, repeat in 10 years COLONOSCOPY N/A 07/06/2022 COLONOSCOPY FLX DX W/COLLJ SPEC WHEN PFRMD 2003 Colonoscopy EGD W/O [facility]SH SPEC VARICIES INJ N/A 07/06/2022 PAST SURGICAL HISTORY OF 1998 heart cath PAST SURGICAL HISTORY OF 2005 repair fx left foearm plate and screw PAST SURGICAL HISTORY OF N/A 02/2021 Heart Cath in [place] TONSILLECTOMY & ADENOIDECTOMY <AGE 10 hydroxyurea (HYDREA) 500 mg capsule Take 2 capsules by mouth once daily. buPROPion XL (WELLBUTRIN XL) 300 mg 24 hr tablet Take 1 tablet by mouth once daily. folic acid 1 mg tablet Take 2 tablets by mouth once daily. carvedilol (COREG) 3.125 mg tablet Take 3.125 mg by mouth twice daily. losartan (COZAAR) 25 mg tablet Take 1 tablet by mouth once daily. ALLERGIES Allergen Reactions Toprol Xl [Metoprol* Other: See Comments General illness, felt lousy, GI upset Baycol Social History Tobacco Use Smoking status: Never Smokeless tobacco: Former Types: Chew Quit date: 01/12/2023 Vaping Use Vaping status: Never Used Substance Use Topics Alcohol use: Yes Alcohol/week: 1.0 standard drink of alcohol Types: 1 Glasses of Wine (5oz) per week Drug use: No FAMILY HISTORY Problem Relation Age of Onset Heart Mother CHF REVIEW OF SYSTEMS: Constitutional: No episodes of fever and night sweats. Not significantly fatigued. Neuro: No PAYNE, vertigo, dizziness and imbalance. No symptoms of neuropathy. HEENT: No recent change in voice, vision or hearing. Resp: No cough, wheeze and hemoptysis. No shortness of breath at rest. No MATUTE. CVS: No exertional chest pain, PND, orthopnea and LE edema. GI: See above. : No dysuria or gross hematuria. Endo: No hot flashes. Musculoskeletal: No bone, back, joint and muscular pain. Derm: No current rash. No history of jaundice or diffuse pruritis. Heme: No unusual bleeding and unexplained bruising. Psych: Normal mood. PHYSICAL EXAM: Vitals: Blood pressure 101/67, pulse (!) 52, temperature 36.1 C (97 F), temperature source Temporal, weight 83.5 kg (184 lb), SpO2 97%. Well-appearing and in no acute distress. EYES: Sclerae are anicteric bilaterally. LYMPHATIC: There is no palpable adenopathy. CARDIOVASCULAR: Rhythm is regular. ABDOMEN: The abdomen is nondistended. Cannot appreciate splenomegaly today. SKIN: No jaundice. 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 - Discussed with him the rationale for stopping aspirin since platelet count is over million. - He had intermediate risk disease and platelet count was over million, cytoreductive therapy was indicated. - Reviewed bone marrow biopsy--MF-1, normal karyotype. - Discussed rationale for hydroxyurea and ASA now that platelet count controlled. - Offered anti-emetic but he preferred to see how nausea responds to taking Hydrea in the evenings. Plan: - Restart ASA 81 mg daily. - Continue hydroxyurea 500 mg once daily in the evenings. - CBC, CMP, iron studies, B12, MMA and serum folate today. - Urged him to call if nausea persists. - OV in 3 months. Portions of this documentation were copied and pasted from my previous office visit note dated 07/06/2024 in order to provide a cohesive continuity of the history. The note has been reviewed and edited and updated as necessary. I spent a total of 25 minutes on the date of the service which included preparing to see the patient, [id number] patient care, completing clinical documentation, obtaining and/or reviewing separately obtained history, performing a medically appropriate examination, counseling and educating the pat ient/family/caregiver, communicating with other HCPs (not separately reported), and communicating results to the patient/family/caregiver. Alverto Edwards DO [facility] NoteHNO ID: [id number] Author: ALVERTO EDWARDS DO Service: ? Author Type: Physician Type: Progress Notes Filed: 10/17/2024 10:26 Note Text: Oncologic problem(s): 1) Thrombocytosis. HPI: The patient is a 74-year-old male with past medical history as outlined below. Patient has been noted to have an increased white blood cell count for several years. 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 Underwent a bone marrow biopsy on 02/20/2024. The report indicates myeloproliferative neoplasm with fibrosis-1. No increase in blasts were observed. FISH for BCR-ABL was negative. 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 History of prior splenectomy: No. ASA was held last week due to platelet count over 1 million. No prior history of stroke or AK. He does have a history of angina. This was evidently secondary to coronary artery spasm. No unusual bleeding. He has been purposely trying to lose weight. Eating mostly meats, "carnivore diet." Presents for ongoing oncologic management. Interim history: Started hydroxyurea. Nausea and malaise with 1000 mg daily. Dose reduced to 500 mg and is now taking it in the evenings. Tolerating better. No reflux or abdominal pain. Has tried to lose weight. Eats about twice a day. Gets early satiety. No dysphagia. PAST MEDICAL HISTORY Diagnosis Date Aortic stenosis echo 2024 Blood in stool Chewing tobacco use Coronary artery spasm Hypertension 02/02/2010 Myeloproliferative neoplasm (HCC) bone marrow biospy 2024 Osteoarthritis, knee bilateral, seeing [facility] Overweight (BMI 25.0-29.9) Pure hypercholesterolemia Syncope 1999 x3 Unspecified asthma(493.90) Unspecified essential hypertension PAST SURGICAL HISTORY Procedure Laterality Date ARTHROSCOPY KNEE DIAGNOSTIC W/WO SYNOVIAL BX SPX Arthroscopy, knee COLONOSCOPY 2008 normal, repeat in 10 years COLONOSCOPY N/A 07/06/2022 COLONOSCOPY FLX DX W/COLLJ SPEC WHEN PFRMD 2003 Colonoscopy EGD W/O [facility] SPEC VARICIES INJ N/A 07/06/2022 PAST SURGICAL HISTORY OF 1998 heart cath PAST SURGICAL HISTORY OF 2005 repair fx left foearm plate and screw PAST SURGICAL HISTORY OF N/A 02/2021 Heart Cath in [place] TONSILLECTOMY AND ADENOIDECTOMY hydroxyurea (HYDREA) 500 mg capsule Take 2 capsules by mouth once daily. buPROPion XL (WELLBUTRIN XL) 300 mg 24 hr tablet Take 1 tablet by mouth once daily. folic acid 1 mg tablet Take 2 tablets by mouth once daily. carvedilol (COREG) 3.125 mg tablet Take 3.125 mg by mouth twice daily. losartan (COZAAR) 25 mg tablet Take 1 tablet by mouth once daily. ALLERGIES Allergen Reactions Toprol Xl [Metoprol* Other: See Comments General illness, felt lousy, GI upset Baycol Social History Tobacco Use Smoking status: Never Smokeless tobacco: Former Types: Chew Quit date: 01/12/2023 Vaping Use Vaping status: Never Used Substance Use Topics Alcohol use: Yes Alcohol/week: 1.0 standard drink of alcohol Types: 1 Glasses of Wine (5oz) per week Drug use: No FAMILY HISTORY Problem Relation Age of Onset Heart Mother CHF REVIEW OF SYSTEMS: Constitutional: No episodes of fever and night sweats. Not significantly fatigued. Neuro: No PAYNE, vertigo, dizziness and imbalance. No symptoms of neuropathy. HEENT: No recent change in voice, vision or hearing. Resp: No cough, wheeze and hemoptysis. No shortness of breath at rest. No MATUTE. CVS: No exertional chest pain, PND, orthopnea and LE edema. GI: See above. : No dysuria or gross hematuria. Endo: No hot flashes. Musculoskeletal: No bone, back, joint and muscular pain. Derm: No current rash. No history of jaundice or diffuse pruritis. Heme: No unusual bleeding and unexplained bruising. Psych: Normal mood. PHYSICAL EXAM: Vitals: Blood pressure 101/67, pulse (!) 52, temperature 36.1 ?C (97 ?F), temperature source Temporal, weight 83.5 kg (184 lb), SpO2 97%. Well-appearing and in no acute distress. EYES: Sclerae are anicteric bilaterally. LYMPHATIC: There is no palpable adenopathy. CARDIOVASCULAR: Rhythm is regular. ABDOMEN: The abdomen is nondistended. Cannot appreciate splenomegaly today. SKIN: No jaundice. 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 - Discussed with him the rationale for stopping aspirin since platelet count is over million. - He had intermediate risk disease and platelet count was over million, cytoreductive therapy was indicated. - Reviewed bone marrow biopsy--MF-1, normal karyotype. - Discussed rationale for hydroxyurea and ASA now that platelet count controlled. - Offered anti-emetic but he preferred to see how nausea responds to taking Hydrea in the evenings. Plan: - Restart ASA 81 mg daily. - Continue hydroxyurea 500 mg once daily in the evenings. - CBC, CMP, iron (more content not included)...[facility] 08-18-2024 Telephone encounter Note* Telephone Encounter - Anju Abarca - 08/18/2024 8:48 AM EDT This has been scheduled. Anju Abarca [facility]07-07-2025 Miscellaneous Notes* Telephone Encounter - Anju Abarca - 08/18/2024 8:48 AM EDT This has been scheduled. Anju Abarca * Telephone Encounter - Yaneli Cedeno LPN - 08/18/2024 8:37 AM EDT I spoke with the patient. Platelets 08/05/2024 267. He is currently taking Hydrea 500 mg daily per 08/05/2024 phone note (d/t nausea). Patient denies nausea at this time. Patient states he has a 4 inch circular bruise to left arm between his elbow and wrist. He denies any injury, numbness or tingling. He denies bruising anywhere else. Patient requesting CBC to check platelet count, has a standing order. PSS- please schedule patient for a CBC 08/19/2024 @ 8:00. Patient is aware of appointment date and time. Yaneli Cedeno LPN * Telephone Encounter - Sydney Laurent - 08/18/2024 8:30 AM EDT Patient states he started taking Hydrea as requested and his left arm is turning black and blue. Healso asks when he should have labs again. Please advise. [facility] Telephone encounter Note * Telephone Encounter - Yaneli Cedeno LPN - 08/18/2024 8:37 AM EDT I spoke with the patient. Platelets 08/05/2024 267. He is currently taking Hydrea 500 mg daily per 08/05/2024 phone note (d/t nausea). Patient denies nausea at this time. Patient states he has a 4 inch circular bruise to left arm between his elbow and wrist. He denies any injury, numbness or tingling. He denies bruising anywhere else. Patient requesting CBC to check platelet count, has a standing order. PSS- please schedule patient for a CBC 08/19/2024 @ 8:00. Patient is aware of appointment date and time. Yaneli Cedeno LPN [facility]07-07-20[facility] Telephone encounter Note* Telephone Encounter - Sydney Laurent - 08/18/2024 8:30 AM EDT Patient states he started taking Hydrea as requested and his left arm is turning black and blue. Healso asks when he should have labs again. Please advise. [facility] Work Phone: [phone] 507-737306-24-2025 Telephone encounter Note* Telephone Encounter - Jennifer Lau LPN - 08/05/2024 10:49 AM EDT Spoke with pt. Informed he can take 1 Hydrea capsule in the morning with breakfast. If nausea continues Dr. Edwards can send in an antinausea medication. Pt. Voiced understanding. Jennifer Lau LPN [facility]06-24-2025 Miscellaneous Notes* Telephone Encounter - Jennifer Lau LPN - 08/05/2024 10:49 AM EDT Spoke with pt. Informed he can take 1 Hydrea capsule in the morning with breakfast. If nausea continues Dr. Edwards can send in an antinausea medication. Pt. Voiced understanding. Jennifer Lau LPN * Telephone Encounter - Alverto Edwards DO - 08/05/2024 10:39 AM EDT Yes. Take with breakfast. If nausea is or continues to be a problem, then I can send in antinausea medicine and for him to use as well. Alverto Edwards DO * Telephone Encounter - Jennifer Lau LPN - 08/05/2024 8:49 AM EDT Spoke with pt.he thinks he could possibly take 1 hydrea capsule a day. States he took Sunday evening dose , then shortly after vomited them up, had none on Sunday, thentook one on Sunday . Had CBC done this morning . Wondering if he can only take 1 daily until his appt. In September? Jennifer Lau LPN * Telephone Encounter - Jennifer Lau LPN - 08/05/2024 8:45 AM EDT Message left on voicemail to contact office concerning previous message. Jennifer Lau LPN * Telephone Encounter - Alverto Edwards DO - 08/05/2024 8:41 AM EDT Can let him know that the hospitalist from [facility] called me about his admission. Not clear that it wasdue to the hydroxyurea but I was told he was hesitant to restart it. That is okay. Counts are okay right now. I would encourage him to keep his follow-up as scheduled in September though. Recheck CBC then if not already on the appointment schedule. Alverto Edwards DO [facility] Tele[facility] encounter Note * Telephone Encounter - Alverto Edwards DO - 08/05/2024 10:39 AM EDT Yes. Take with breakfast. If nausea is or continues to be a problem, then I can send in antinausea medicine and for him to use as well. Alverto Edwards DO [facility]06-24-[facility] Telephone encounter Note* Telephone Encounter - Jennifer Lau LPN - 08/05/2024 8:49 AM EDT Spoke with pt.he thinks he could possibly take 1 hydrea capsule a day. States he took Sunday evening dose , then shortly after vomited them up, had none on Sunday, thentook one on Sunday . Had CBC done this morning . Wondering if he can only take 1 daily until his appt. In September? Jennifer Lau LPN [facility]06-24-[facility] Telephone encounter Note* Telephone Encounter - Jennifer Lau LPN - 08/05/2024 8:45 AM EDT Message left on voicemail to contact office concerning previous message. Jennifer Lau LPN [facility]06-[facility] Telephone encounter Note* Telephone Encounter - Alverto Edwards DO - 08/05/2024 8:41 AM EDT Can let him know that the hospitalist from [facility] called me about his admission. Not clear that it wasdue to the hydroxyurea but I was told he was hesitant to restart it. That is okay. Counts are okay right now. I would encourage him to keep his follow-up as scheduled in September though. Recheck CBC then if not already on the appointment schedule. Alverto Edwards DO [facility]06-23-[facility] Telephone encounter Note* Telephone Encounter - Yaneli Cedeno LPN - 08/04/2024 10:27 AM EDT Hydrea PRESCRIPTION was sent in 07/22/2024 as 2 capsules once a day. Yaneli Cedeno LPN [facility]06-23-20[facility] Miscellaneous Notes* Telephone Encounter - Yaneli Cedeno LPN - 08/04/2024 10:27 AM EDT Hydrea PRESCRIPTION was sent in 07/22/2024 as 2 capsules once a day. Yaneli Cedeno LPN [facility] Radiology Diagnostic study note [facility] Imaging Services [address] [place], [place] [id number] Brain/Head without Contrast MR#: [id number] Acct: [id number] Name: HUSAM BARROW Rep #: [id number] : 1950 M 74 From: Katya Sprague MD PCP: Dr. Brien Singer MD Status: ME E ER Study:Brain/Head without Contrast Date of Exa m: 08/03/24 Exam# [id number] Ordering Dr: Maxim Guzman MD PROCEDURE: BRAIN/HEAD WITHOUT CONTRAST 08/03/2024 REASON FOR EXAM: SYNCOPE, DIZZINESS TECHNIQUE: BRAIN/HEAD WITHOUT CONTRAST Coronal and Sagittal reconstruction series were provided. One or more dose reduction techniques were used (e.g., Automated exposure control, adjustment of the mA and/or kV according to patient size, use of iterative reconstruction technique. RADIATION DOSE SUMMARY: CTDlvol: 44 mGy DLP: 779.9 mGycm COMPARISON: None. FINDINGS: Mild diffuse cortical atrophy, commensurate with the patient's age. Scattered hypodense foci in the periventricular and subcortical white matter suggestive of chronic ischemic white matter disease. Normal size of the ventricles and extra-axial spaces for the patient's age. Normal basal ganglia and thalami. Normal brainstem. Normal cerebellum. There is no demonstrated extra-axial, intraparenchymal, or intraventricular hemorrhage. There are no findings of an acute ischemic infarction. Normal calvarium. There is no demonstrated fracture. Normal soft tissue structures. Normal visualized paranasal sinuses. CT/Brain/Head without Contrast IMPRESSION: No CT evidence for acute brain abnormality. Reading Location: [place] [address] CC: Dr. Maxim Guzman MD; Dr. Brien Singer MD ~ [place]: Signed [facility]06-22-2025 Discharge summary [facility] Medical Records Department [address] [place] [id number] Instructions for Home/Discharge Instructions 08/03/24 0929 MR#: [id number] Acct: [id number] Name: HUSAM BARROW Rep #:[id number] : 1950 74 From: Brien Cunha DO PCP: Dr. Brien Singer MD Status:AD M OPAL Discharge Instructions Diet Discharge Diet: No restrictions DC O2, CPAP, BIPAP needs Home O2 Discharge instructions: No Dressing / Incision Discharge Activity: Return to Normal Activity Weight Bearing Status: Full weight bearing Follow Up Care Test Results: Test results from this visit will be discussed in further detail at your follow- up appointment, if applicable. Discharge Plan Admission Admit Date/Time: 08/03/24 01:44 Primary Reason for Your Visit: Syncope Attending Provider: Brien Cunha Primary Care Provider: Brien Singer Consulting Providers: Jasper Morrison Instructions Additional Instructions / Restrictions: Contact your oncologist to discuss your use of hydroxyurea Discharge Orders/Prescriptions Prescriptions: Continued diltiazem HCl 180 MG capsule,extended release 24hr 1 cap PO DAILY Patient Comments: TAKE 1 CAPSULE BY MOUTH ONCE DAILY acetaminophen 325 MG tablet 650 mg PO Q6H PRN PRN (Reason: Pain Score 1-10/Temp > 100.7 F) 0RF losartan 50 mg tablet 25 mg PO DAILY Patient Comments: TAKE 1 TABLET BY MOUTH ONCE DAILY atorvastatin 40 mg tablet 20 mg PO DAILY Patient Comments: TAKE 1 TABLET BY MOUTH ONCE DAILY AT BEDTIME aspirin 81 mg tablet,delayed release (DR/EC) 81 mg PO DAILY Patient Comments: TAKE 1 TABLET BY MOUTH ONCE DAILY folic acid 1 mg tablet 1 mg PO DAILY Patient Comments: TAKE 2 TABLETS BY MOUTH ONCE DAILY bupropion HCl 300 mg tablet extended release 24 hr 300 mg PO DAILY Patient Comments: TAKE 1 TABLET BY MOUTH ONCE DAILY Changed carvedilol 3.125 mg tablet 6.25 mg PO DAILY Qty: 1 0RF Patient Comments: TAKE 1 TABLET BY MOUTH TWICE DAILY Rx Instructions: Reduce carvedilol to 6.25 mg twice a day Held hydroxyurea 500 mg capsule 500 mg PO DAILY Hold Instructions: Discussed resuming this medication with your oncologist Referrals / Follow Up: Brien Singer MD [Primary Care Provider] - Within 2 Weeks Disposition Disposition (needs filled in before D/C Order can be placed): Home, Self Care 08/03/24 0938Brien Cunha DO CC: Dr. Jasper Morrison DO; Dr. Brien Singer MD ~ Signed [facility]06-[facility]-2025 [facility] Medical Records Department [address] [place] [address] Discharge Summary 08/03/24 0938 MR#: [id number] Acct: [id number] Name: DANIALHUSAM Rep #: [id number] : 1950 74 From: Brien Cunha DO PCP: Dr. Brien Singer MD Status:DIS OPAL Location: [place] [address] Providers Date of Admission: 08/03/24 Date of Discharge: 08/03/24 Primary Care Physician: Dr. Brien Singer MD Reason For Visit: SYNCOPE LIKELY DUE TO ADVERSE DRUG RXN TO AV-KEYON Diagnosis Discharge Diagnosis (1) Syncope and collapse: Status: Acute Code(s): R55 - Syncope and collapse (2) Symptomatic bradycardia: Status: Acute Code(s): R00.1 - Bradycardia, unspecified (3) Adverse drug reaction: Status: Acute Code(s): T50.905A - Adverse effect of unspecified drugs, medicaments and biological substances, initial encounter Qualifiers: Encounter type: initial encounter Qualified Code(s): T50.905A - Adverse effect of unspecified drugs, medicaments and biological substances, initial encounter (4) Generalized weakness: Status: Acute Code(s): R53.1 - Weakness (5) Fatigue: Status: Acute Code(s): R53.83 - Other fatigue Qualifiers: Fatigue type: unspecified Qualified Code(s): R53.83 - Other fatigue Plan 1. Syncope secondary to bradycardia from carvedilol #2 essential hypertension #3 hyperlipidemia #4 thrombocytosis-chronic Medications at Discharge Home Medications acetaminophen 325 mg tablet 650 mg (2 x 325 mg) PO Q6H PRN PRN Pain Score 1- 10/Temp > 100.7 F 11/28/19 diltiazem HCl 180 mg capsule,extended release 24 hr 1 cap PO DAILY Check with primary doctor 11/28/19 aspirin 81 mg tablet,delayed release 81 mg PO DAILY 06/24/22 atorvastatin 40 mg tablet 20 mg PO DAILY 06/24/22 bupropion HCl 300 mg 24 hr tablet, extended release 300 mg PO DAILY 06/24/22 folic acid 1 mg tablet 1 mg PO DAILY 06/24/22 losartan 50 mg tablet 25 mg PO DAILY 06/24/22 carvedilol 3.125 mg tablet 6.25 mg (2 x 3.125 mg) PO DAILY #1 TAB 08/03/24 hydroxyurea 500 mg capsule 500 mg PO DAILY 08/03/24 Held on 08/03/24. Instructions: Discussed resuming this medication with your oncologist Hospital Course Operations None Procedures None Summary of Care Provided Minutes Spent on Discharge: 30 Hospital Course: 74-year-old white male was seen in the emergency room at [facility] after having a brief syncopal episode at home when he was walking into his bathroom. Patient complained of generalized weakness, evaluation in the emergency room revealed his white blood cell count to be 4.3, hemoglobin was 12.5, chemistry profile was remarkable for a creatinine of 1.4. Patient initially was noted to be hypotensive but a short time later in the emergency room his blood pressure was normal. His heart rate was in the 40s in the emergency room, orthostatic blood pressures were obtained and they were not abnormal. Patient was placed in observation status on PCU and monitored on telemetry. His Cardizem and Coreg was held. Patient's pulse rate varied from the high 40s right after his arrival to PCU and just prior to discharge, his pulse rate was in the 50s and 60s. I had a discussion with the patient on 08/03/2024, he stated he had a recent echocardiogram this year which he stated was unremarkable. I did not feel the patient needed to remain in the hospital, his Coreg was reduced at the time of discharge, he was also instructed to resume his Cardizem. On 08/03/2024, patient was seen and examined: On examination he appeared in good health and spirits. Vital signs as documented. Skin warm and dry and without overt rashes. Neck without JVD, neck was supple, trachea midline, thyroid was normal. Lungs clear bilaterally, normal air movement was noted. Heart exam notable for regular rhythm, normal sounds and absence of murmurs, rubs or gallops. Abdomen unremarkable and without evidence of organomegaly, masses, or abdominal aortic enlargement. Bowel sounds are present, abdomen is not distended. Extremities nonedematous, no cyanosis was noted, no clubbing was noted. Neuro: Cranial nerves II through XII are grossly intact, no focal motor deficits were noted, sensation to light touch and pinprick intact, motor exam 5/5 throughout. Psych: Patient is alert and oriented x3, he does not appear anxious or depressed, he does not appear agitated. Patient was discharged home in stable condition on 08/03/2024 Weight / BMI Weight Weight: 83.4 kg Body Mass Index (BMI) 25.6 ABG / Lab / Microbiology Data 08/03/24 03:33 08/03/24 03:33 Laboratory: Laboratory Results - last 24 hr 08/03/24 07:40: Troponin T Hi Sens 4Hr 34 H Radiography Diagnostic Testing: Radiology Impression Chest X-Ray 08/02/24 23:59 IMPRESSION: No evidence for acute abnormality. Electronically Signed By: Katya (more content not included)...[facility]06-22-2025 History and physical note Author Jasper Bernstein [facility] Note Date/Time August 03, 2024 6:51 am [facility] Medical Records Department [address] [place] [address] H&P Exam - Hospitalist 08/03/24 0132 MR#: [id number] Acct: [id number] Name: HUSAM BARROW Rep #:[id number] : 1950 74 From: Jasper Flores DO PCP: Dr. Brien Singer MD Status:[facility] Location: [place] [address] HPI - General General Date of Admission: 08/03/24 Date of Service: 08/03/24 Chief Complaint: Syncope. HPI Narrative HUSAM BARROW, is a 74 Cory Male with a past medical history of essential hypertension; on losartan, carvedilol and diltiazem, hyperlipidemia; on atorvastatin, CAD, history of thrombocytosis; recently started on hydroxyurea followed by Dr. Edwards, history of COVID-19, depression; on bupropion, GERD; on omeprazole and OA who presents to [facility] ER complaining of syncopal event. Mr. Barrow reports his symptoms began on the morning of August 02, 2024 after he woke up not feeling well around 10 AM but he was able to push through his day until this evening when he went to the bathroom and had a syncopal episode where he apparently passed out on his bathroom floor for less than ~2 minutes. He states he had been feeling generally weak weak and tired throughout the day. He also admits to associated nausea and vomiting with bilious emesis and severe fatigue and malaise which seems to have begun after recently starting hydroxyurea ~2 days ago. He denies similar side effects of bradycardia, fatigue or malaise previously. There was no report of associated fever, chills, visual changes, runny nose, sore throat, ear pain, chest pain, palpitations, heart racing, headache, dysuria, hematuria or rash. In the ER he was noted to have Severe Symptomatic Bradycardia of 44 bpm noted shortly after admission suspected to be due to Adverse Drug Reaction to AV-keyon blocking agents with recently started hydroxyurea but otherwise unremarkable laboratory studies and imaging with CT scan of the head that revealed no acute intracranialabnormality and CXR that revealed no evidence for acute abnormality. He was then admitted to the PCU under observation status for ongoing care for stay thatis expected to be less than 2 midnights. [facility] Medical History High platelet count CAD (coronary artery disease) Hypertension Angina of effort Home Medications ?Medication ?Instructions ?Recorded ?Last Taken ?Type acetaminophen 325 mg tablet 650 mg (2 x 325 mg) PO Q6H PRN PRN 11/28/19 Unknown Rx Pain Score 1-10/Temp > 100.7 F diltiazem HCl 180 mg 1 cap PO DAILY Check with pr imary 11/28/19 11/27/19 08:00 History capsule,extended release 24 hr doctor aspirin 81 mg tablet,delayed 81 mg PO DAILY 06/24/22 U nknown History release Held on 08/03/24. Instructions: MD Ordered atorvastatin 40 mg tablet 20 mg PO DAILY 06/24/22 Unkn own History bupropion HCl 300 mg 24 hr tablet, 300 mg PO DAILY Unknown History extended release carvedilol 3.125 mg tablet 12.5 mg PO DAILY 06/24/22 U nknown History folic acid 1 mg tablet 1 mg PO DAILY 06/24/22 Unkno wn History losartan 50 mg tablet 25 mg PO DAILY 06/24/22 Unkn own History hydroxyurea 500 mg capsule 500 mg PO DAILY 08/03/24 Un known History Allergy/AdvReac Type Severity Reaction Status Date / Time No Known Allergies Allergy Verified 08/02/24 23:38 Social History Smoking Status: Never smoker ROS ROS Narrative Review of systems: Constitutional: Patient with generalized weakness but he denies fever or chills. Eyes: Patient denies change in vision or discharge from eyes. ENT: Patient denies runny nose, sore throat or ear pain. Resp: Patient denies shortness of breath or cough. CV: Patient admits to syncopal episode but he denies chest pain, palpitations, heart racing or lower extremity edema. GI: Patient admits to nausea and vomiting with bilious emesis but he denies abdominal pain, diarrhea or constipation as per HPI. : Patient denies dysuria, hematuria or urinary frequency. MSK: Patient admits to generalized weakness but he denies arthralgias or myalgias. Skin: Patient denies rash, abscess, wounds or jaundice. Psych: Patient denies symptoms of uncontrolled depression or anxiety. Neuro: Patient denies headache, paresthesias or focal neurologic deficits. Allergy: Patient denies lip swelling, tongue swelling or urticaria. Hematology: Patient denies easy bleeding or easy bruisability. Endocrinology: Patient denies polyuria, polydipsia, polyphagia or heat/cold intolerance. 14 point ROS otherwise negative except for positives noted above in HPI. Vital Signs Vital Signs Vital Signs: 08/02/24 23:32 08/02/24 23:41 08/02/24 23:41 Temperature 97.7 F L Temperature Source Oral Pulse Rate 45 L Pulse Rate [Lying] Pulse Rate [Sitting (for 1 minute prior to obtaining)] Pulse Rate [Standing (for 1 minute prior to obtaining)] Respiratory Rate 15 Respiratory Effort Normal Non-Labored Normal Respiratory Depth Normal Respiratory Pattern Normal Normal Blood Pressure 95/70 Blood Pressure [Lying] Blood Pressure [Sitting (for 1 minute prior to obtaining)] Blood Pressure [Standing (for 1 minute prior to obtaining)] Blood Pressure Mean 78 Blood Pressure Mean [Lying] Blood Pressure Mean [Sitting (for 1 minute prior to obtaining)] Blood Pressure Mean [Standing (for 1 minute prior to obtaining)] Pulse Ox 94 Oxygen Delivery Method Room Air Room Air 08/03/24 00:48 08/03/24 00:59 08/03/24 01:02 Temperature Temperature Source Pulse Rate 46 L 54 L Pulse Rate [Lying] 44 L Pulse Rate [Sitting (for 1 minute prior to obtaining)] 46 L Pulse Rate [Standing (for 1 minute prior to obtaining)] 47 L Respiratory Rate 16 14 Respiratory Effort Respiratory Depth Respiratory Pattern Blood Pressure 137/88 H 126/85 H Blood Pressure [Lying] 125/83 H Blood Pressure [Sitting (for 1 minute prior to obtaining)] 136/90 H Blood Pressure [Standing (for 1 minute prior to obtaining)] 126/85 H Blood Pressure Mean 104 98 Blood Pressure Mean [Lying] 97 Blood Pressure Mean [Sitting (for 1 minute prior to obtaining)] 105 Blood Pressure Mean [Standing (for 1 minute prior to obtaining)] 98 Pulse Ox 98 99 Oxygen Delivery Method Room Air Room Air Weight Weight: 185 lb Body Mass Index (BMI) 25.7 Physical Exam Const alert, oriented x3, no apparent distress and average body habitus General Appearance: cooperative HEENT normocephalic, head/scalp atraumatic, hearing grossly normal bilaterally and moist oral mucous membranes Eyes PERRL and EOMs intact bilaterally Neck no lymphadenopathy, supple and no JVD Resp normal respiratory effort, no retractions, no use of accessory muscles and clearto auscultation bilaterally Cardio regular rate and regular rhythm GI normal to inspection, nondistended, normoactive bowel sounds, soft to palpation,non-tender and non-distended Extremity normal to inspection, full ROM and no clubbing, cyanosis or edema Skin Skin Narrative: Patient has evidence of rash, abscess, wounds or jaundice. Neuro oriented x3, CN's II-XII intact bilaterally, moves all extremities and no focal motor deficits Sensorium / Orientation: awake, alert, oriented to person, oriented to place andoriented to time Psych affect normal Results Medical Records Data Attestation: I reviewed the patient's medical records Lab / Micro Data Attestation: I reviewed the patient's lab results. 08/02/24 23:00 08/02/24 23:00 Labs: Laboratory Results - last 24 hr 08/02/24 23:00: WBC 4.3 L, RBC 3.83 L, Hgb 12.5 L, Hct 36.6 L, MCV 95.6 H, MCH 32.6 H, MCHC 34.2, RDW Std Deviation 59.7 H, RDW Coeff of Christian 18.5 H, Plt Count 187, MPV 10.6, Immature Gran % (Auto) 0.200, Neut % (Auto) 57.8, Lymph % (Auto) 21.7, [place] % (Auto) 18.5 H, Eos % (Auto) 0.9, Baso % (Auto) 0.9, Absolute Neuts (auto) 2.5, Absolute Lymphs (auto) 0.93, Nucleated RBC % 0, Sodium 139, Potassium 3.4, Chloride 102, Carbon Dioxide 24.6, Anion Gap 13, BUN 18, Creatinine 1.40 H, Estim Creat Clear Calc 47.81 L, Est GFR (MDRD) Non-Af 52 L, BUN/Creatinine Ratio 12.5, Glucose 108 H, Calcium 9.2, Total Bilirubin 0.90, AST43 H, ALT 24, Alkaline Phosphatase 108, Total Protein 6.6, Albumin 3.8, Globulin2.8, Albumin/Globulin Ratio 1.4 08/03/24 00:45: Urine Color Yellow, Urine Clarity Clear, Urine pH 6.0, Ur Specific Ignacio 1.015, Urine Protein 15 H, Urine Glucose (UA) Normal, Urine Ketones Negative, Urine Occult Blood 25 H, Urine Nitrite Negative, Urine Bilirubin Negative, Urine Urobilinogen Normal, Ur Leukocyte Esterase Negative, Urine RBC 0-5 SEEN, Urine WBC 0-5 SEEN, Ur Squamous Epith Cells 0-5 SEEN, Amorphous Sediment 1+, Urine Bacteria 2+, Hyaline Casts 0-5 SEEN, Urine Mucus 0 SEEN Imaging Radiology Impression Chest X-Ray 08/02/24 23:59 IMPRESSION: No evidence for acute abnormality. Reading Location: [place] [address] 08/03/24 23:58 IMPRESSION: No CT evidence for acute brain abnormality. Reading Location: [place] [address] Assessment & Plan Assessment/Plan (1) Syncope and collapse: (2) Symptomatic bradycardia: (3) Adverse drug reaction: QUALIFIERS: Encounter type: initial encounter Qualified Code(s): T50.905A - Adverse effect of unspecified drugs, medicaments and biological substances, initial encounter (4) Generalized weakness: (5) Fatigue: QUALIFIERS: Fatigue type: unspecified Qualified Code(s): R53.83 -Other fatigue PLAN: Plan 1. Syncopal event with documented Severe Symptomatic Bradycardia of ~44 bpm - Admit to PCU under observation status. Check echocardiogram to evaluate LVEF. Check carotid Doppler to evaluate for stenosis. Gently volume resuscitate and hold AV keyon blocking agents. Check TSH. Give ondansetron prn for nausea and vomiting. Give acetaminophen prn for pain or fever. 2. Adverse Drug Reaction to AV-keyon blocking agents and recently started hydroxyurea likely causing #1 - Hold AV keyon blocking agents till further notice. Patient is interested in cutting back his dose and/or frequency of hydroxyurea if Dr. Edwards is amenable. 3. Generalized Weakness and Fatigue due to #1 & #2 - PT/OT and Case Management to consult and treat on rounds in the AM for further recommendations with help appreciated in advance. 4. Essential hypertension; on losartan, carvedilol and diltiazem complicating #1 & #2 - Continue losartan as previous but hold carvedilol and diltiazem as noted in #2. 5. Hyperlipidemia; on atorvastatin - Hold statin in case of myotoxicity. 6. CAD - Stable. Serialize troponin. 7. History of thrombocytosis; recently started on hydroxyurea twice daily with adverse causing severe fatigue and malaise as outlined in HPI - Stable with platelet count of 187K present on admission. 8. History of COVID-19 - Noted. 9. Depression; on bupropion - Maintain current treatment. 10. GERD; on omeprazole - Resume PPI. 11. OA - Give acetaminophen prn as outlined in #1. 12. DVT prophylaxis - Enoxaparin 40 mg sq daily plus SCD's. Total time: Approximately (but not less than) 70 minutes. Charges/Coding Visit Charges OBSV E&M: 18879 Observ/hosp same date L2 08/03/24 0651 <Electronically signed by Jasper Morrison DO> Cosigner Signature (if applicable): CC: Dr. Jasper Morrison DO; Dr. Brien Singer MD~ Signed [facility] Work Phone: 1(293) 862-916906-22-2025 History and physical note [facility] Medical Records Department [address] [place] [address] H&P Exam - Hospitalist 08/03/24 0132 MR#: [id number] Acct: [id number] Name: HUSAM BARROW Rep #:[id number] : 1950 74 From: Jasper Flores DO PCP: Dr. Brien Singer MD Status:AD M OPAL Location: [place] [address] HPI - General General Date of Admission: 08/03/24 Date of Service: 08/03/24 Chief Complaint: Syncope. HPI Narrative HUSAM BARROW, is a 74 [place] Male with a past medical history of essential hypertension; on losartan, carvedilol and diltiazem, hyperlipidemia; on atorvastatin, CAD, history of thrombocytosis; recently started on hydroxyurea followed by Dr. Edwards, history of COVID-19, depression; on bupropion, GERD; on omeprazole and OA who presents to [facility] ER complaining of syncopal event. Mr. Barrow reports his symptoms began on the morning of August 02, 2024 after he woke up not feeling well around 10 AM but he was able to push through his day until this evening when he went to the bathroom and had a syncopal episode where he apparently passed out on his bathroom floor for less than ~2 minutes. He states he had been feeling generally weak weak and tired throughout the day. He also admits to associated nausea and vomiting with bilious emesis and severe fatigue and malaise which seems to have begun after recently starting hydroxyurea ~2 days ago. He denies similar side effects of bradycardia, fatigue or malaise previously. There was no report of associated fever, chills,visual changes, runny nose, sore throat, ear pain, chest pain, palpitations, heart racing, headache, dysuria, hematuria or rash. In the ER he was noted to have Severe Symptomatic Bradycardia of 44 bpm noted shortly after admission suspected to be due to Adverse Drug Reaction to AV-keyon blocking age nts with recently started hydroxyurea but otherwise unremarkable laboratory studies and imaging with CT scan of the head that revealed no acute intracranialabnormality and CXR that revealed no evidence for acute abnormality. He was then admitted to the PCU under observation status for ongoing care for stay thatis expected to be less than 2 midnights. [facility] Medical History High platelet count CAD (coronary artery disease) Hypertension Angina of effort Home Medications ?Medication ?Instructions ?Recorded ?Last Taken ?Type acetaminophen 325 mg tablet 650 mg (2 x 325 mg) PO Q6H PRN PRN 11/28/19 Unknown Rx Pain Score 1-10/Temp > 100.7 F diltiazem HCl 180 mg 1 cap PO DAILY Check with pr imary 11/28/19 11/27/19 08:00 History capsule,extended release 24 hr doctor aspirin 81 mg tablet,delayed 81 mg PO DAILY 06/24/22 U nknown History release Held on 08/03/24. Instructions: MD Ordered atorvastatin 40 mg tablet 20 mg PO DAILY 06/24/22 Unkn own History bupropion HCl 300 mg 24 hr tablet, 300 mg PO DAILY Unknown History extended release carvedilol 3.125 mg tablet 12.5 mg PO DAILY 06/24/22 U nknown History folic acid 1 mg tablet 1 mg PO DAILY 06/24/22 Unkno wn History losartan 50 mg tablet 25 mg PO DAILY 06/24/22 Unkn own History hydroxyurea 500 mg capsule 500 mg PO DAILY 08/03/24 Un known History Allergy/AdvReac Type Severity Reaction Status Date / Time No Known Allergies Allergy Verified 08/02/24 23:38 Social History Smoking Status: Never smoker ROS ROS Narrative Review of systems: Constitutional: Patient with generalized weakness but he denies fever or chills. Eyes: Patient denies change in vision or discharge from eyes. ENT: Patient denies runny nose, sore throat or ear pain. Resp: Patient denies shortness of breath or cough. CV: Patient admits to syncopal episode but he denies chest pain, palpitations, heart racing or lower extremity edema. GI: Patient admits to nausea and vomiting with bilious emesis but he denies abdominal pain, diarrhea or constipation as per HPI. : Patient denies dysuria, hematuria or urinary frequency. MSK: Patient admits to generalized weakness but he denies arthralgias or myalgias. Skin: Patient denies rash, abscess, wounds or jaundice. Psych: Patient denies symptoms of uncontrolled depression or anxiety. Neuro: Patient denies headache, paresthesias or focal neurologic deficits. Allergy: Patient denies lip swelling, tongue swelling or urticaria. Hematology: Patient denies easy bleeding or easy bruisability. Endocrinology: Patient denies polyuria, polydipsia, polyphagia or heat/cold intolerance. 14 point ROS otherwise negative except for positives noted above in HPI. Vital Signs Vital Signs Vital Signs: 08/02/24 23:32 08/02/24 23:41 08/02/24 23:41 Temperature 97.7 F L Temperature Source Oral Pulse Rate 45 L Pulse Rate [Lying] Pulse Rate [Sitting (for 1 minute prior to obtaining)] Pulse Rate [Standing (for 1 minute prior to obtaining)] Respiratory Rate 15 Respiratory Effort Normal Non-Labored Normal Respiratory Depth Normal Respiratory Pattern Normal Normal Blood Pressure 95/70 Blood Pressure [Lying] Blood Pressure [Sitting (for 1 minute prior to obtaining)] Blood Pressure [Standing (for 1 minute prior to obtaining)] Blood Pressure Mean 78 Blood Pressure Mean [Lying] Blood Pressure Mean [Sitting (for 1 minute prior to obtaining)] Blood Pressure Mean [Standing (for 1 minute prior to obtaining)] Pulse Ox 94 Oxygen Delivery Method Room Air Room Air 08/03/24 00:48 08/03/24 00:59 08/03/24 01:02 Temperature Temperature Source Pulse Rate 46 L 54 L Pulse Rate [Lying] 44 L Pulse Rate [Sitting (for 1 minute prior to obtaining)] 46 L Pulse Rate [Standing (for 1 minute prior to obtaining)] 47 L Respiratory Rate 16 14 Respiratory Effort Respiratory Depth Respiratory Pattern Blood Pressure 137/88 H 126/85 H Blood Pressure [Lying] 125/83 H Blood Pressure [Sitting (for 1 minute prior to obtaining)] 136/90 H Blood Pressure [Standing (for 1 minute prior to obtaining)] 126/85 H Blood Pressure Mean 104 98 Blood Pressure Mean [Lying] 97 Blood Pressure Mean [Sitting (for 1 minute prior to obtaining)] 105 Blood Pressure Mean [Standing (for 1 minute prior to obtaining)] 98 Pulse Ox 98 99 Oxygen Delivery Method Room Air Room Air Weight Weight: 185 lb Body Mass Index (BMI) 25.7 Physical Exam Const alert, oriented x3, no apparent distress and average body habitus General Appearance: cooperative HEENT normocephalic, head/scalp atraumatic, hearing grossly normal bilaterally and moist oral mucous membranes Eyes PERRL and EOMs intact bilaterally Neck no lymphadenopathy, supple and no JVD Resp normal respiratory effort, no retractions, no use of accessory muscles and clearto auscultation bilaterally Cardio regular rate and regular rhythm GI normal to inspection, nondistended, normoactive bowel sounds, soft to palpation,non-tender and non-distended Extremity normal to inspection, full ROM and no clubbing, cyanosis or edema Skin Skin Narrative: Patient has evidence of rash, abscess, wounds or jaundice. Neuro oriented x3, CN's II-XII intact bilaterally, moves all extremities and no focal motor deficits Sensorium / Orientation: awake, alert, oriented to person, oriented to place andoriented to time Psych affect normal Results Medical Records Data Attestation: I reviewed the patient's medical records Lab / Micro Data Attestation: I reviewed the patient's lab results. 08/02/24 23:00 08/02/24 23:00 Labs: Laboratory Results - last 24 hr 08/02/24 23:00: WBC 4.3 L, RBC 3.83 L, Hgb 12.5 L, Hct 36.6 L, MCV 95.6 H, MCH 32.6 H, MCHC 34.2, RDW Std Deviation 59.7 H, RDW Coeff of Christian 18.5 H, Plt Count 187, MPV 10.6, Immature Gran % (Auto) 0.200, Neut % (Auto) 57.8, Lymph % (Auto) 21.7, Horry % (Auto) 18.5 H, Eos % (Auto) 0.9, Baso % (Auto) 0.9, Absolute Neuts (auto) 2.5, Absolute Lymphs (auto) 0.93, Nucleated RBC % 0, Sodium 139, Potassium 3.4, Chloride 102, Carbon Dioxide 24.6, Anion Gap 13, BUN 18, Creatinine 1.40 H, Estim Creat ClearCalc 47.81 L, Est GFR (MDRD) Non-Af 52 L, BUN/Creatinine Ratio 12.5, Glucose 108 H, Calcium 9.2, Total Bilirubin 0.90, AST43 H, ALT 24, Alkaline Phosphatase 108, Total Protein 6.6, Albumin 3.8, Globulin2.8, Albumin/Globulin Ratio 1.4 08/03/24 00:45: Urine Color Yellow, Urine Clarity Clear, Urine pH 6.0, Ur Specific Ignacio 1.015, Urine Protein 15 H, Urine Glucose (UA) Normal, Urine Ketones Negative, Urine Occult Blood 25 H, UrineNitrite Negative, Urine Bilirubin Negative, Urine Urobilinogen Normal, Ur Leukocyte Esterase Negative, Urine RBC 0-5 SEEN, Urine WBC 0-5 SEEN, Ur Squamous Epith Cells 0-5 SEEN, Amorphous Sediment 1+,Urine Bacteria 2+, Hyaline Casts 0-5 SEEN, Urine Mucus 0 SEEN Imaging Radiology Impression Chest X-Ray 08/02/24 23:59 IMPRESSION: No evidence for acute abnormality. Reading Location: [place] [address] 08/03/24 23:58 IMPRESSION: No CT evidence for acute brain abnormality. Reading Location: [place] [address] Assessment & Plan Assessment/Plan (1) Syncope and collapse: (2) Symptomatic bradycardia: (3) Adverse drug reaction: QUALIFIERS: Encounter type: initial encounter Qualified Code(s): T50.905A - Adverse effect of unspecified drugs, medicaments and biological substances, initial encounter (4) Generalized weakness: (5) Fatigue: QUALIFIERS: Fatigue type: unspecified Qualified Code(s): R53.83 -Other fatigue PLAN: Plan 1. Syncopal event with documented Severe Symptomatic Bradycardia of ~44 bpm - Admit to PCU under observation status. Check echocardiogram to evaluate LVEF. Check carotid Doppler to evaluate for stenosis. Gently volume resuscitate and hold AV keyon blocking agents. Check TSH. Give ondansetron prn for nausea and vomiting. Give acetaminophen prn for pain or fever. 2. Adverse Drug Reaction to AV-keyon blocking agents and recently started hydroxyurea likely causing #1 - Hold AV keyon blocking agents till further notice. Patient is interested in cutting back his dose and/or frequency of hydroxyurea if Dr. [place] is amenable. 3. Generalized Weakness and Fatigue due to #1 & #2 - PT/OT and Case Management to consult and treat on rounds in the AM for further recommendations with help appreciated in advance. 4. Essential hypertension; on losartan, carvedilol and diltiazem complicating #1 & #2 - Continue losartan as previous but hold carvedilol and diltiazem as noted in #2. 5. Hyperlipidemia; on atorvastatin - Hold statin in case of myotoxicity. 6. CAD - Stable. Serialize troponin. 7. History of thrombocytosis; recently started on hydroxyurea twice daily with adverse causing severe fatigue and malaise as outlined in HPI - Stable with platelet count of 187K present on admission. 8. History of COVID-19 - Noted. 9. Depression; on bupropion - Maintain current treatment. 10. GERD; on omeprazole - Resume PPI. 11. OA - Give acetaminophen prn as outlined in #1. 12. DVT prophylaxis - Enoxaparin 40 mg sq daily plus SCD's. Total time: Approximately (but not less than) 70 minutes. Charges/Coding Visit Charges OBSV E&M: 82756 Observ/hosp same date L2 08/03/24 0651 Cosigner Signature (if applicable): CC: Dr. Jasper Morrison DO; Dr. Brien Singer MD~ Signed [facility]06-22-2025 Discharge summary Author Maxim Guzman [facility] Note Date/Time August 03, 2024 2:37 am [facility] Medical Records Department [address] [place] [address] Emergency Department Summary 08/03/24 MR#: [id number] Acct: [id number] Name: HUSAM BARROW Rep #:[id number] : 1950 74 From: Maxim Guzman MD PCP: Dr. Brien Singer MD Status:AD M [facility] Location: [address] History of Present Illness Chief Complaint: Syncope Narrative Narrative: 74-year-old male past medical history of hypertension, on carvedilol, presents with syncopal episode this evening. He and his family relate history that he was not feeling well all day. He was around 10:00 in the morning where he did not feel well. He went about his day. This evening, he had a syncopal episode very briefly. He is feeling weak and tired and laid back on the bed. He deniesany chest pain or shortness of breath. His family reports that he passed out onthe bathroom floor for less than 2 minutes. He had nausea and vomiting as well. [facility] Medical History High platelet count CAD (coronary artery disease) Hypertension Angina of effort Home Medications ?Medication ?Instructions ?Recorded ?Last Taken ?Type acetaminophen 325 mg tablet 650 mg (2 x 325 mg) PO Q6H PRN PRN 11/28/19 Unknown Rx Pain Score 1-10/Temp > 100.7 F diltiazem HCl 180 mg 1 cap PO DAILY Check with pr imary 11/28/19 11/27/19 08:00 History capsule,extended release 24 hr doctor aspirin 81 mg tablet,delayed 81 mg PO DAILY 06/24/22 U nknown History release atorvastatin 40 mg tablet 40 mg PO DAILY 06/24/22 Unkn own History bupropion HCl 300 mg 24 hr tablet, 300 mg PO DAILY Unknown History extended release carvedilol 3.125 mg tablet 12.5 mg PO DAILY 06/24/22 U nknown History folic acid 1 mg tablet 1 mg PO DAILY 06/24/22 Unkno wn History losartan 50 mg tablet 50 mg PO DAILY 06/24/22 Unkn own History hydroxyurea 500 mg capsule 500 mg PO DAILY 08/03/24 Un known History Allergy/AdvReac Type Severity Reaction Status Date / Time No Known Allergies Allergy Verified 08/02/24 23:38 Social History Smoking Status: Never smoker ROS ROS ED ROS Narrative Review of systems positive for syncopal episode. Positive generalized weakness. Denies headache or chest pain. No exacerbating or alleviating factors. EXAM Physical Exam Narrative Exam Narrative: Afebrile. Vital signs noted. Nontoxic-appearing. Awake, alert, interactive. Cardiovascular examination reveals bradycardia in the 40s. Lungs are clear to auscultation bilaterally. Abdomen soft nontender without guarding or rebound. Neurological examination nonfocal, nonlateralizing. Const Vital Signs: 08/02/24 23:32 08/02/24 23:41 08/02/24 23:41 Temperature 97.7 F L Temperature Source Oral Pulse Rate 45 L Pulse Rate [Lying] Pulse Rate [Sitting (for 1 minute prior to obtaining)] Pulse Rate [Standing (for 1 minute prior to obtaining)] Respiratory Rate 15 Respiratory Effort Normal Non-Labored Normal Respiratory Depth Normal Respiratory Pattern Normal Normal Blood Pressure 95/70 Blood Pressure [Lying] Blood Pressure [Sitting (for 1 minute prior to obtaining)] Blood Pressure [Standing (for 1 minute prior to obtaining)] Blood Pressure Mean 78 Blood Pressure Mean [Lying] Blood Pressure Mean [Sitting (for 1 minute prior to obtaining)] Blood Pressure Mean [Standing (for 1 minute prior to obtaining)] Pulse Ox 94 Oxygen Delivery Method Room Air Room Air 08/03/24 00:48 08/03/24 00:59 08/03/24 01:02 Temperature Temperature Source Pulse Rate 46 L 54 L Pulse Rate [Lying] 44 L Pulse Rate [Sitting (for 1 minute prior to obtaining)] 46 L Pulse Rate [Standing (for 1 minute prior to obtaining)] 47 L Respiratory Rate 16 14 Respiratory Effort Respiratory Depth Respiratory Pattern Blood Pressure 137/88 H 126/85 H Blood Pressure [Lying] 125/83 H Blood Pressure [Sitting (for 1 minute prior to obtaining)] 136/90 H Blood Pressure [Standing (for 1 minute prior to obtaining)] 126/85 H Blood Pressure Mean 104 98 Blood Pressure Mean [Lying] 97 Blood Pressure Mean [Sitting (for 1 minute prior to obtaining)] 105 Blood Pressure Mean [Standing (for 1 minute prior to obtaining)] 98 Pulse Ox 98 99 Oxygen Delivery Method Room Air Room Air MDM MDM MDM Narrative Medical decision making narrative: Differential diagnosis includes but not limited to symptomatic bradycardia versus dehydration versus other electrolyte imbalance versus infectious process. I did consider orthostatics, however patient has low blood pressure of 95/70 initially. He will be bolused normal saline. Comprehensive workup was pursued. EKG was obtained and interpreted by myself independently as sinus bradycardia at 46 bpm without ectopy or acute ST changes. No STEMI. I reviewed his laboratory work and he is neutropenic at 4.3 which I think is nonspecific, hemoglobin 12.5 with hematocrit 36.6, platelet count 187. When compared to prior, it is normal. They do state that he takes hydroxyurea for the elevated platelets. CMP is remarkable for AST of 43 which I think is nonspecific, BUN of18 and creatinine slightly elevated at 1.4, glucose of 108 with anion gap normalat 13, normal sodium, potassium, and chloride. Urinalysis is negative for infection in the sense that negative leukocytes and negative nitrites. There are 0-5 WBCs which is within normal limits. I sent it for culture. CT of the brain radiology report was reviewed and there were chronic changes and atrophy but no acute process. Chest x-ray in 1 view interpreted by myself independentlyshows no pneumonia or pneumothorax. I reviewed the radiology report which confirms my independent interpretation. At this point in time, upon repeat examination, patient states he feels the same, and generally weak. His heart rate remains in the 40s, as low as 43 bpm. I do feel he is having symptomatic bradycardia. I do feel that he merits observation on the PCU for his symptomatic bradycardia. Patient discussed with Dr. Alcazar. Assigned observation in stable condition History & Record Review Discussion w/independent historian: Patient and Family Additional record(s) reviewed:: Prior labs Lab Data Attestation: I reviewed the patient's lab results. Labs: Laboratory Results - last 24 hr 08/02/24 08/03/24 23:00 00:45 WBC 4.3 L RBC 3.83 L Hgb 12.5 L Hct 36.6 L MCV 95.6 H MCH 32.6 H MCHC 34.2 RDW Std Deviation 59.7 H RDW Coeff of Christian 18.5 H Plt Count 187 MPV 10.6 Immature Gran % (Auto) 0.200 Neut % (Auto) 57.8 Lymph % (Auto) 21.7 Horry % (Auto) 18.5 H Eos % (Auto) 0.9 Baso % (Auto) 0.9 Absolute Neuts (auto) 2.5 Absolute Lymphs (auto) 0.93 Nucleated RBC % 0 Sodium 139 Potassium 3.4 Chloride 102 Carbon Dioxide 24.6 Anion Gap 13 BUN 18 Creatinine 1.40 H Estim Creat Clear Calc 47.81 L Est GFR (MDRD) Non-Af 52 L BUN/Creatinine Ratio 12.5 Glucose 108 H Calcium 9.2 Magnesium 2.1 Total Bilirubin 0.90 AST 43 H ALT 24 Alkaline Phosphatase 108 Total Protein 6.6 Albumin 3.8 Globulin 2.8 Albumin/Globulin Ratio 1.4 Urine Color Yellow Urine Clarity Clear Urine pH 6.0 Ur Specific Ignacio 1.015 Urine Protein 15 H Urine Glucose (UA) Normal Urine Ketones Negative Urine Occult Blood 25 H Urine Nitrite Negative Urine Bilirubin Negative Urine Urobilinogen Normal Ur Leukocyte Esterase Negative Urine RBC 0-5 SEEN Urine WBC 0-5 SEEN Ur Squamous Epith Cells 0-5 SEEN Amorphous Sediment 1+ Urine Bacteria 2+ Hyaline Casts 0-5 SEEN Urine Mucus 0 SEEN Radiography Diagnostic Testing: Clinical Impression(s) from Imaging Studies Chest X-Ray 08/02/24 23:59 IMPRESSION: No evidence for acute abnormality. Reading Location: [place] [address] Management Discussion w/another healthcare provider: Hospitalist Discharge Plan Dx/Rx/DC Orders Clinical Impression: Syncope and collapse, Generalized weakness, Symptomatic bradycardia Disposition Disposition: Acute Care Hospital [facility] Discharge Date/Time: 08/03/24 02:33 What to do if you have Problems For any increased pain, shortness of breath, bleeding, nausea or vomiting, chestpain, or any unexpected problems, contact your Primary Care Provider. Call [facility] ([phone]) or report to the closest Emergency Room. Call 911 if necessary. 08/03/24 0237 <Electronically signed by Maxim Guzman MD> Cosigner Signature (if applicable): CC: Dr. Brien Singer MD ~ Signed [facility] Work Phone: 1(861) 875-528706-22-2025 Evaluation note* Diagnosis Onset Date Resolution Status Admit Date Adverse drug reaction acute Jul 1:44am Fatigue acute August 03 1:44am Generalized weakness acute August 03, 2024 1:44am Symptomatic bradycardia acute J [facility] 2024 1:44am Syncope and collapse acute August 03, 2024 1:44am [facility] Work Phone: 1(767) 713-974606-22-2025 Evaluation note* Diagnosis Onset Date Resolution Status Admit Date Adverse drug reaction inactive Jul 1:44am Fatigue inactive August 03 1:44am Generalized weakness inactive August 03, 2024 1:44am Symptomatic bradycardia inactive 2024 1:44am Syncope and collapse inactive August 03, 2024 1:44am CAD (coronary artery disease) acute November 06, 2024 11:35am Disequilibrium acute November 06, 2024 11:35am High platelet count acute 2024 11:35am Leukocytosis acute November 062024 11:35am Non-STEMI (non-ST elevated myocardial infarction) acute November 06, 2024 11:35am Hypertension chronic November 062024 11:35am [facility] Work Phone: 1(701) 694-623206-22-2025 Discharge summary [facility] Medical Records Department [address] [place] [address] Emergency Department Summary 08/03/24 MR#: [id number] Acct: [id number] Name: HUSAM BARROW Rep #:[id number] : 1950 74 From: Maxim Guzman MD PCP: Dr. Brien Singer MD Status:AD M [facility] Location: [address] History of Present Illness Chief Complaint: Syncope Narrative Narrative: 74-year-old male past medical history of hypertension, on carvedilol, presents with syncopal episode this evening. He and his family relate history that he was not feeling well all day. He was :00 in the morning where he did not feel well. He went about his day. This evening, he had a syncopal episode very briefly. He is feeling weak and tired and laid back on the bed. He deniesany chestpain or shortness of breath. His family reports that he passed out onthe bathroom floor for less than 2 minutes. He had nausea and vomiting as well. [facility] Medical History High platelet count CAD (coronary artery disease) Hypertension Angina of effort Home Medications ?Medication ?Instructions ?Recorded ?Last Taken ?Type acetaminophen 325 mg tablet 650 mg (2 x 325 mg) PO Q6H PRN PRN 11/28/19 Unknown Rx Pain Score 1-10/Temp > 100.7 F diltiazem HCl 180 mg 1 cap PO DAILY Check with pr imary 11/28/19 11/27/19 08:00 History capsule,extended release 24 hr doctor aspirin 81 mg tablet,delayed 81 mg PO DAILY 06/24/22 U nknown History release atorvastatin 40 mg tablet 40 mg PO DAILY 06/24/22 Unkn own History bupropion HCl 300 mg 24 hr tablet, 300 mg PO DAILY Unknown History extended release carvedilol 3.125 mg tablet 12.5 mg PO DAILY 06/24/22 U nknown History folic acid 1 mg tablet 1 mg PO DAILY 06/24/22 Unkno wn History losartan 50 mg tablet 50 mg PO DAILY 06/24/22 Unkn own History hydroxyurea 500 mg capsule 500 mg PO DAILY 08/03/24 Un known History Allergy/AdvReac Type Severity Reaction Status Date / Time No Known Allergies Allergy Verified 08/02/24 23:38 Social History Smoking Status: Never smoker ROS ROS ED ROS Narrative Review of systems positive for syncopal episode. Positive generalized weakness. Denies headache or chest pain. No exacerbating or alleviating factors. EXAM Physical Exam Narrative Exam Narrative: Afebrile. Vital signs noted. Nontoxic-appearing. Awake, alert, interactive. Cardiovascular examination reveals bradycardia in the 40s. Lungs are clear to auscultation bilaterally. Abdomen soft nontender without guarding or rebound. Neurological examination nonfocal, nonlateralizing. Const Vital Signs: 08/02/24 23:32 08/02/24 23:41 08/02/24 23:41 Temperature 97.7 F L Temperature Source Oral Pulse Rate 45 L Pulse Rate [Lying] Pulse Rate [Sitting (for 1 minute prior to obtaining)] Pulse Rate [Standing (for 1 minute prior to obtaining)] Respiratory Rate 15 Respiratory Effort Normal Non-Labored Normal Respiratory Depth Normal Respiratory Pattern Normal Normal Blood Pressure 95/70 Blood Pressure [Lying] Blood Pressure [Sitting (for 1 minute prior to obtaining)] Blood Pressure [Standing (for 1 minute prior to obtaining)] Blood Pressure Mean 78 Blood Pressure Mean [Lying] Blood Pressure Mean [Sitting (for 1 minute prior to obtaining)] Blood Pressure Mean [Standing (for 1 minute prior to obtaining)] Pulse Ox 94 Oxygen Delivery Method Room Air Room Air 08/03/24 00:48 08/03/24 00:59 08/03/24 01:02 Temperature Temperature Source Pulse Rate 46 L 54 L Pulse Rate [Lying] 44 L Pulse Rate [Sitting (for 1 minute prior to obtaining)] 46 L Pulse Rate [Standing (for 1 minute prior to obtaining)] 47 L Respiratory Rate 16 14 Respiratory Effort Respiratory Depth Respiratory Pattern Blood Pressure 137/88 H 126/85 H Blood Pressure [Lying] 125/83 H Blood Pressure [Sitting (for 1 minute prior to obtaining)] 136/90 H Blood Pressure [Standing (for 1 minute prior to obtaining)] 126/85 H Blood Pressure Mean 104 98 Blood Pressure Mean [Lying] 97 Blood Pressure Mean [Sitting (for 1 minute prior to obtaining)] 105 Blood Pressure Mean [Standing (for 1 minute prior to obtaining)] 98 Pulse Ox 98 99 Oxygen Delivery Method Room Air Room Air MDM MDM MDM Narrative Medical decision making narrative: Differential diagnosis includes but not limited to symptomatic bradycardia versus dehydration versus other electrolyte imbalance versus infectious process. I did consider orthostatics, however patient has low blood pressure of 95/70 initially. He will be bolused normal saline. Comprehensive workup was pursued. EKG was obtained and interpreted by myself independently as sinus bradycardia at 46 bpmwithout ectopy or acute ST changes. No STEMI. I reviewed his laboratory work and he is neutropenic at 4.3 which I think is nonspecific, hemoglobin 12.5 with hematocrit 36.6, platelet count 187. When compared to prior, it is normal. They do state that he takes hydroxyurea for the elevated platelets.CMP is remarkable for AST of 43 which I think is nonspecific, BUN of18 and creatinine slightly elevated at 1.4, glucose of 108 with anion gap normalat 13, normal sodium, potassium, and chloride. Urinalysis is negative for infection in the sense that negative leukocytes and negative nitrites. There are 0-5 WBCs which is within normal limits. I sent it for culture. CT of the brain radiology report was reviewed and there were chronic changes and atrophy but no acute process. Chest x-ray in 1 view interpreted by myself independentlyshows no pneumonia or pneumothorax. I reviewed the radiology report which confirms my independent interpretation. At this point in time, upon repeat examination, patient states he feels the same, and generally weak. His heart rate remains in the 40s, as low as 43 bpm. I do feel he is having symptomatic bradycardia. I do feel that he merits observation on the PCU for his symptomatic bradycardia. Patient discussed with Dr. Alcazar. Assigned observation in stable condition History & Record Review Discussion w/independent historian: Patient and Family Additional record(s) reviewed:: Prior labs Lab Data Attestation: I reviewed the patient's lab results. Labs: Laboratory Results - last 24 hr 08/02/24 08/03/24 23:00 00:45 WBC 4.3 L RBC 3.83 L Hgb 12.5 L Hct 36.6 L MCV 95.6 H MCH 32.6 H MCHC 34.2 RDW Std Deviation 59.7 H RDW Coeff of Christian 18.5 H Plt Count 187 MPV 10.6 Immature Gran % (Auto) 0.200 Neut % (Auto) 57.8 Lymph % (Auto) 21.7 H[place] % (Auto) 18.5 H Eos % (Auto) 0.9 Baso % (Auto) 0.9 Absolute Neuts (auto) 2.5 Absolute Lymphs (auto) 0.93 Nucleated RBC % 0 Sodium 139 Potassium 3.4 Chloride 102 Carbon Dioxide 24.6 Anion Gap 13 BUN 18 Creatinine 1.40 H Estim Creat Clear Calc 47.81 L Est GFR (MDRD) Non-Af 52 L BUN/Creatinine Ratio 12.5 Glucose 108 H Calcium 9.2 Magnesium 2.1 Total Bilirubin 0.90 AST 43 H ALT 24 Alkaline Phosphatase 108 Total Protein 6.6 Albumin 3.8 Globulin 2.8 Albumin/Globulin Ratio 1.4 Urine Color Yellow Urine Clarity Clear Urine pH 6.0 Ur Specific Ignacio 1.015 Urine Protein 15 H Urine Glucose (UA) Normal Urine Ketones Negative Urine Occult Blood 25 H Urine Nitrite Negative Urine Bilirubin Negative Urine Urobilinogen Normal Ur Leukocyte Esterase Negative Urine RBC 0-5 SEEN Urine WBC 0-5 SEEN Ur Squamous Epith Cells 0-5 SEEN Amorphous Sediment 1+ Urine Bacteria 2+ Hyaline Casts 0-5 SEEN Urine Mucus 0 SEEN Radiography Diagnostic Testing: Clinical Impression(s) from Imaging Studies Chest X-Ray 08/02/24 23:59 IMPRESSION: No evidence for acute abnormality. Reading Location: [place] [address] Management Discussion w/another healthcare provider: Hospitalist Discharge Plan Dx/Rx/DC Orders Clinical Impression: Syncope and collapse, Generalized weakness, Symptomatic bradycardia Disposition Disposition: Acute Care Hospital [facility] Discharge Date/Time: 08/03/24 02:33 What to do if you have Problems For any increased pain, shortness of breath, bleeding, nausea or vomiting, chestpain, or any unexpected problems, contact your Primary Care Provider. Call [facility] ([phone]) or report tothe closest Emergency Room. Call 911 if necessary. 08/03/24 0237 Cosigner Signature (if applicable): CC: Dr. Brien Singer MD ~ Signed [facility]06-22-2025 Radiology Diagnostic study note [facility] Imaging Services [address] [place] [address] Chest 1 View (Portable) MR#: [id number] Acct: [id number] Name: DANIALHUSAM Rep #: [id number] : 1950 M 74 From: Katya Sprague MD PCP: Dr. Brine Singer MD Status: ME E ER Study:Chest 1 View (Portable) Date of Exam: 08/02/24 Exam# [id number] Ordering Dr: Maxim Guzman MD PROCEDURE: CHEST 1 VIEW (PORTABLE) 08/03/2024 REASON FOR EXAM: SYNCOPE TECHNIQUE: Frontal view of the chest. COMPARISON: 11/27/2019. FINDINGS: The lungs are expanded. There is no demonstrated parenchymal abnormality. There is no demonstrated pleural abnormality. Enlarged cardiac silhouette. Normal mediastinum and zakia. Normal visualized pulmonary arteries. Atheromatous plaques of the visualized aortic arch and descending thoracic aorta. Diffuse spondylosis of the visualized thoracic spine. Normal visualized ribs, clavicles. Degenerative joint disease. There is no demonstrated abnormality of the visualized soft tissue structures ofthe upper abdomen. RAD/Chest 1 View (Portable) IMPRESSION: No evidence for acute abnormality. Reading Location: [place] [address] CC: Dr. Maxim Guzman MD; Dr. Brien Singer MD ~ [place]: Signed [facility]06-10-2025 Telephone encounter Note* Telephone Encounter - Alverto [place] DO - 07/22/2024 9:18 AM EDT The following approved medication requests have been transmitted electronically. Requested Prescriptions Signed Prescriptions Disp Refills hydroxyurea (HYDREA) 500 mg capsule 60 capsule 2 Sig: Take 2 capsules by mouth once daily. Authorizing Provider: ALVERTO EDWARDS DO [facility]06-10-2025 Miscellaneous Notes* Telephone Encounter - Alverto [place] DO - 07/22/2024 9:18 AM EDT The following approved medication requests have been transmitted electronically. Requested Prescriptions Signed Prescriptions Disp Refills hydroxyurea (HYDREA) 500 mg capsule 60 capsule 2 Sig: Take 2 capsules by mouth once daily. Authorizing Provider: ALVERTO EDWARDS DO * Telephone Encounter - Xena Mao LPN - 07/22/2024 8:40 AM EDT Patient notified and voices understanding. States he will need refill. Pended. Has standing CBC, will "walk in on 08/05/24." Xena Mao LPN * Telephone Encounter - Alverto [place] DO - 07/22/2024 8:22 AM EDT Can let him know blood counts continue to improve. Continue Hydrea 2 capsules daily and recheck CBCin 2 weeks. documented in [facility] Telephone encounter Note * Telephone Encounter - Xena Mao LPN - 07/22/2024 8:40 AM EDT Patient notified and voices understanding. States he will need refill. Pended. Has standing CBC, will "walk in on 08/05/24." Xena Mao LPN [facility]06-10-2025 Telephone encounter Note* Telephone Encounter - Alverto [place] DO - 07/22/2024 8:22 AM EDT Can let him know blood counts continue to improve. Continue Hydrea 2 capsules daily and recheck CBCin 2 weeks. [facility]06-03-2025 Telephone encounter Note* Telephone Encounter - Alverto [place] DO - 07/15/2024 12:55 PM EDT Refill sent. [facility]06-03-2025 Miscellaneous Notes* Telephone Encounter - Alverto [place] DO - 07/15/2024 12:55 PM EDT Refill sent. * Telephone Encounter - Sydney Laurent - 07/15/2024 8:30 AM EDT Patient informed Lab scheduled for next week Patient states needs new prescription for Hydrea due to taking more. Please send to [facility] in [place] * Telephone Encounter - Xena Mao LPN - 07/15/2024 8:27 AM EDT Left VM regarding lab and hydrea. Please assist pt with one week lab apt. Xena Mao LPN * Telephone Encounter - Alverto [place] DO - 07/15/2024 8:23 AM EDT Can let him know blood counts are improving. Continue Hydrea 2 capsules daily and recheck CBC in a week. documented in this encounter[facility]06-[facility]-2025 Telephone encounter Note * Telephone Encounter - Sydney Laurent - 07/15/2024 8:30 AM EDT Patient informed Lab scheduled for next week Patient states needs new prescription for Hydrea due to taking more. Please send to [facility] [place] [facility] Work Phone: 1(455) 398-300506-03-2025 Telephone encounter Note* Telephone Encounter - Xena Mao LPN - 07/15/2024 8:27 AM EDT Left VM regarding lab and hydrea. Please assist pt with one week lab apt. Xena Mao LPN [facility]06-03-2025 Telephone encounter Note* Telephone Encounter - Alverto [place] DO - 07/15/2024 8:23 AM EDT Can let him know blood counts are improving. Continue Hydrea 2 capsules daily and recheck CBC in a week. [facility]06-01-2025 Evaluation note* Diagnosis Onset Date Resolution Status Admit Date Adverse drug reaction acute Jul 1:44am Fatigue acute August 03 1:44am Generalized weakness acute August 03, 2024 1:44am Symptomatic bradycardia acute J 2024 1:44am Syncope and collapse acute August 03, 2024 1:44am [facility] Work Phone: [phone]) 759-121605-29-2025 Telephone encounter Note* Telephone Encounter - Mónica Rios - 07/10/2024 3:24 PM EDT Patient returned call and is aware of lab drawl weekly prefers to do a walk in and will be here next Sunday. [facility]05-29-2025 Miscellaneous Notes* Telephone Encounter - Mónica Rios - 07/10/2024 3:24 PM EDT Patient returned call and is aware of lab drawl weekly prefers to do a walk in and will be here next Sunday. * Telephone Encounter - Yaneli Cedeno LPN - 07/10/2024 3:10 PM EDT Left a message for patient to contact office to confirm that he is aware to have his CBC drawn weekly at the [facility]. He has a standing order though he may want to schedule an appointment for labs every week. Yaneli Cedeno LPN documented in this encounter[facility]05-29-2025 Telephone encounter Note * Telephone Encounter - Yaneli Cedeno LPN - 07/10/2024 3:10 PM EDT Left a message for patient to contact office to confirm that he is aware to have his CBC drawn weekly at the [facility]. He has a standing order though he may want to schedule an appointment for labs every week. Yaneli Cedeno LPN [facility]05-28-2025 Telephone encounter Note* Telephone Encounter - Sydney Laurent - 07/09/2024 8:27 AM EDT Relayed message to patient [facility] Work Phone: 1(445) 791-999405-28-2025 Miscellaneous Notes* Telephone Encounter - Sydney Laurent - 07/09/2024 8:27 AM EDT Relayed message to patient * Telephone Encounter - Xena Mao LPN - 07/09/2024 8:24 AM EDT Left message to call office for instructions. Updated med list to reflect change. Xena Mao LPN * Telephone Encounter - Alverto [place] DO - 07/09/2024 6:33 AM EDT Based on lab results from yesterday, let him know to increase Hydrea to 2 capsules once daily. He has order to get CBC weekly. Alverto [place] DO documented in this encounterUpper [facility]05-28-2025 Telephone encounter Note * Telephone Encounter - Xena Mao LPN - 07/09/2024 8:24 AM EDT Left message to call office for instructions. Updated med list to reflect change. Xena Mao LPN [facility]05-28-2025 Telephone encounter Note* Telephone Encounter - Alverto [place] DO - 07/09/2024 6:33 AM EDT Based on lab results from yesterday, let him know to increase Hydrea to 2 capsules once daily. He has order to get CBC weekly. Alverto [place] DO [facility]05-27-2025 NoteHNO ID: [id number] Author: ALVERTO EDWARDS DO Service: ? Author Type: Physician Type: Progress Notes Filed: 07/08/2024 16:51 Note Text: Patient referred by Edwin Naranjo APRN.CNP for thrombocytosis. HPI: The patient is a 73-year-old male with past medical history as outlined below. Patient has been noted to have an increased white blood cell count for several years. 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 Underwent a bone marrow biopsy on 02/20/2024. The report indicates myeloproliferative neoplasm with fibrosis-1. No increase in blasts were observed. FISH for BCR-ABL was negative. 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 History of prior splenectomy: No. ASA was held last week due to platelet count over 1 million. No prior history of stroke or AK. He does have a history of angina. This was evidently secondary to coronary artery spasm. No unusual bleeding. He has been purposely trying to lose weight. Eating mostly meats, "carnivore diet." PAST MEDICAL HISTORY Diagnosis Date Aortic stenosis echo 2024 Blood in stool Chewing tobacco use Coronary artery spasm Hypertension 02/02/2010 Myeloproliferative neoplasm (HCC) bone marrow biospy 2024 Osteoarthritis, knee bilateral, seeing [facility] Overweight (BMI 25.0-29.9) Pure hypercholesterolemia Syncope 1999 x3 Unspecified asthma(493.90) Unspecified essential hypertension PAST SURGICAL HISTORY Procedure Laterality Date ARTHROSCOPY KNEE DIAGNOSTIC W/WO SYNOVIAL BX SPX Arthroscopy, knee COLONOSCOPY 2008 normal, repeat in 10 years COLONOSCOPY N/A 07/06/2022 COLONOSCOPY FLX DX W/COLLJ SPEC WHEN PFRMD 2003 Colonoscopy EGD W/O BRS SPEC VARICIES INJ N/A 07/06/2022 PAST SURGICAL HISTORY OF 1998 heart cath PAST SURGICAL HISTORY OF 2005 repair fx left foearm plate and screw PAST SURGICAL HISTORY OF N/A 02/2021 Heart Cath in [place] TONSILLECTOMY AND ADENOIDECTOMY buPROPion XL (WELLBUTRIN XL) 300 mg 24 hr tablet Take 1 tablet by mouth once daily. folic acid 1 mg tablet Take 2 tablets by mouth once daily. carvedilol (COREG) 3.125 mg tablet Take 3.125 mg by mouth twice daily. losartan (COZAAR) 25 mg tablet Take 1 tablet by mouth once daily. ALLERGIES Allergen Reactions Toprol Xl [Metoprol* Other: See Comments General illness, felt lousy, GI upset [place]col Social History Tobacco Use Smoking status: Never Smokeless tobacco: Former Types: Chew Quit date: 01/12/2023 Vaping Use Vaping status: Never Used Substance Use Topics Alcohol use: Yes Alcohol/week: 1.0 standard drink of alcohol Types: 1 Glasses of Wine (5oz) per week Drug use: No FAMILY HISTORY Problem Relation Age of Onset Heart Mother CHF REVIEW OF SYSTEMS: Constitutional: No episodes of fever and night sweats. Not significantly fatigued. Neuro: No PAYNE, vertigo, dizziness and imbalance. No symptoms of neuropathy. HEENT: No recent change in voice, vision or hearing. Resp: No cough, wheeze and hemoptysis. No shortness of breath at rest. No MATUTE. CVS: No exertional chest pain, PND, orthopnea and LE edema. GI: No reflux, n/v, change in bowel habits or abdominal pain. : No dysuria or gross hematuria. No symptoms of bladder outlet obstruction. Endo: No hot flashes. No polyuria and polydipsia. No heat and cold intolerance. Musculoskeletal: No bone, back, joint and muscular pain. Derm: No current rash. No history of jaundice or diffuse pruritis. Heme: No unusual bleeding and unexplained bruising. Psych: Normal mood. PHYSICAL EXAM: Vitals: Blood pressure 131/78, pulse (!) 57, temperature 36.7 ?C (98.1 ?F), temperature source Temporal, height 175.9 cm (5' 9.25"), weight 86.4 kg (190 lb 8 oz), SpO2 97%. Well-appearing and in no acute distress. EYES: Sclerae are anicteric bilaterally. LYMPHATIC: There is no palpable adenopathy. CARDIOVASCULAR: Rhythm is regular. ABDOMEN: The abdomen is nondistended. Very mild nontender splenomegaly only appreciated laterally with deep inspiration. SKIN: No jaundice. 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 - Discussed with him the rationale for stopping aspirin since platelet count is over million. - He has intermediate risk disease but since platelet count is over million, cytoreductive therapy is indicated at this time. - Discussed with him the use of hydroxyurea. Plan: - Start hydroxyurea 500 mg once daily. - CBC, CMP, iron studies, B12, MMA and serum folate today. - CBC weekly. - Plan to restart aspirin when platelet count under million. - Obtain documentation of CALR mutation and NGS panel from [place]. - OV in 3 months. I spent a total of 60 minutes on the date of the service which included preparing to see the patient, [id number] patient care, completing clinical documentation, obtaining (more content not included)...[facility]05-27-2025 History of Present illness Narrative* Alverto [place] DO - 07/08/2024 3:11 PM EDT Patient referred by Edwin Naranjo APRN.BUSINESS DATA ANALYST for thrombocytosis. HPI: The patient is a 73-year-old male with past medical history as outlined below. Patient has been noted to have an increased white blood cell count for several years. 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 Underwent a bone marrow biopsy on 02/20/2024. The report indicates myeloproliferative neoplasm with fibrosis-1. No increase in blasts were observed. FISH for BCR-ABL was negative. 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 History of prior splenectomy: No. ASA was held last week due to platelet count over 1 million. No prior history of stroke or AK. He does have a history of angina. This was evidently secondary tocoronary artery spasm. No unusual bleeding. He has been purposely trying to lose weight. Eating mostly meats, "carnivore diet." PAST MEDICAL HISTORY Diagnosis Date Aortic stenosis echo 2024 Blood in stool Chewing tobacco use Coronary artery spasm Hypertension 02/02/2010 Myeloproliferative neoplasm (HCC) bone marrow biospy 2024 Osteoarthritis, knee bilateral, seeing [facility] Overweight (BMI 25.0-29.9) Pure hypercholesterolemia Syncope 1999 x3 Unspecified asthma(493.90) Unspecified essential hypertension PAST SURGICAL HISTORY Procedure Laterality Date ARTHROSCOPY KNEE DIAGNOSTIC W/WO SYNOVIAL BX SPX Arthroscopy, knee COLONOSCOPY 2008 normal, repeat in 10 years COLONOSCOPY N/A 07/06/2022 COLONOSCOPY FLX DX W/COLLJ SPEC WHEN PFRMD 2003 Colonoscopy EGD W/O [facility] SPEC VARICIES INJ N/A 07/06/2022 PAST SURGICAL HISTORY OF 1998 heart cath PAST SURGICAL HISTORY OF 2005 repair fx left foearm plate and screw PAST SURGICAL HISTORY OF N/A 02/2021 Heart Cath in [place] TONSILLECTOMY & ADENOIDECTOMY <AGE 10 buPROPion XL (WELLBUTRIN XL) 300 mg 24 hr tablet Take 1 tablet by mouth once daily. folic acid 1 mg tablet Take 2 tablets by mouth once daily. carvedilol (COREG) 3.125 mg tablet Take 3.125 mg by mouth twice daily. losartan (COZAAR) 25 mg tablet Take 1 tablet by mouth once daily. ALLERGIES Allergen Reactions Toprol Xl [Metoprol* Other: See Comments General illness, felt lousy, GI upset [place] Social History Tobacco Use Smoking status: Never Smokeless tobacco: Former Types: Chew Quit date: 01/12/2023 Vaping Use Vaping status: Never Used Substance Use Topics Alcohol use: Yes Alcohol/week: 1.0 standard drink of alcohol Types: 1 Glasses of Wine (5oz) per week Drug use: No FAMILY HISTORY Problem Relation Age of Onset Heart Mother CHF REVIEW OF SYSTEMS: Constitutional: No episodes of fever and night sweats. Not significantly fatigued. Neuro: No PAYNE, vertigo, dizziness and imbalance. No symptoms of neuropathy. HEENT: No recent change in voice, vision or hearing. Resp: No cough, wheeze and hemoptysis. No shortness of breath at rest. No MATUTE. CVS: No exertional chest pain, PND, orthopnea and LE edema. GI: No reflux, n/v, change in bowel habits or abdominal pain. : No dysuria or gross hematuria. No symptoms of bladder outlet obstruction. Endo: No hot flashes. No polyuria and polydipsia. No heat and cold intolerance. Musculoskeletal: No bone, back, joint and muscular pain. Derm: No current rash. No history of jaundice or diffuse pruritis. Heme: No unusual bleeding and unexplained bruising. Psych: Normal mood. PHYSICAL EXAM: Vitals: Blood pressure 131/78, pulse (!) 57, temperature 36.7 C (98.1 F), temperature source Temporal, height 175.9 cm (5' 9.25"), weight 86.4 kg (190 lb 8 oz), SpO2 97%. Well-appearing and in no acute distress. EYES: Sclerae are anicteric bilaterally. LYMPHATIC: There is no palpable adenopathy. CARDIOVASCULAR: Rhythm is regular. ABDOMEN: The abdomen is nondistended. Very mild nontender splenomegaly only appreciated laterally with deep inspiration. SKIN: No jaundice. 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 - Discussed with him the rationale for stopping aspirin since platelet count is over million. - He has intermediate risk disease but since platelet count is over million, cytoreductive therapy is indicated at this time. - Discussed with him the use of hydroxyurea. Plan: - Start hydroxyurea 500 mg once daily. - CBC, CMP, iron studies, B12, MMA and serum folate today. - CBC weekly. - Plan to restart aspirin when platelet count under million. - Obtain documentation of CALR mutation and NGS panel from [place]. - OV in 3 months. I spent a total of 60 minutes on the date of the service which included preparing to see the patient, [id number] patient care, completing clinical documentation, obtaining and/or reviewing separately obtained history, performing a medically appropriate examination, counseling and educating the pat ient/family/caregiver, ordering medications, tests, or procedures, communicating with other HCPs (not separately reported), and communicating results to the patient/family/caregiver. Alverto [place] DO documented in [facility]05-[facility]25 Telephone encounter Note * Telephone Encounter - Mónica Villeda RN - 06/24/2024 4:13 PM EDT Patient returned call and given provider's message below and patient verbalized understanding. Selwyn Villeda RN [facility]05-13-2025 Miscellaneous Notes* Telephone Encounter - Mónica Villeda RN - 06/24/2024 4:13 PM EDT Patient returned call and given provider's message below and patient verbalized understanding. Selwyn Villeda RN * Telephone Encounter - Yecenia Cain LPN - 06/24/2024 8:45 AM EDT Left message to return call * Telephone Encounter - Edwin Naranjo APRN.CNP - 06/24/2024 8:39 AM EDT Please let the patient know that hematology reached out to me. Dr. [place] is recommending that the patient stop the Aspirin 81 mg tablet as it can increase risk of internal bleeding with his platelet count. He is going to review the records that we received yesterday and potentially reach out to patient to start a new medication prior to his upcoming appointment. Edwinflora Naranjo APRN.CNP documented in this encounterUpper [facility] Center05-13-2025 Telephone encounter Note * Telephone Encounter - Yecenia Cain LPN - 06/24/2024 8:45 AM EDT Left message to return call [facility]05-13-2025 Telephone encounter Note* Telephone Encounter - Edwin Naranjo APRN.CNP - 06/24/2024 8:39 AM EDT Please let the patient know that hematology reached out to me. Dr. Edwards is recommending that the patient stop the Aspirin 81 mg tablet as it can increase risk of internal bleeding with his platelet count. He is going to review the records that we received yesterday and potentially reach out to patient to start a new medication prior to his upcoming appointment. Edwin Naranjo APRN.CNP [facility]05-12-2025 NoteHNO ID: [id number] Author: EDWIN NARANJO APRN.CNP Service: ? Author Type: Nurse Practitioner Type: Progress Notes Filed: 06/23/2024 14:08 Note Text: Received records from [facility]. Cardiology records show findings of mild aortic stenosis on echocardiogram. Preserved EF function 55%. This would explain the very subtle heart murmur. Also received medical records from [facility] hematology oncology group. Had JAK2 mutation panel which revealed CALR mutation. Reviewing records patient had a bone marrow biopsy completed on February 20, 2024 that revealed evidence of myeloproliferative neoplasm with mild fibrosis MF1 and no increased blasts. In February his platelets were 861K. In April 2024 platelets had increased to 1050k . At the time the visit hematology recommended at least an 81 mg dose of aspirin and a follow-up with hematology here in [facility]. Records signed, will be scanned into record for hematology oncology to review. Appt 07/[address] Edwards. Edwin Naranjo APRN.CNPC[facility]05-[facility]-2025 Telephone encounter Note* Telephone Encounter - Supriya Esquivel - 06/20/2024 3:08 PM EDT Spoke with patient and scheduled 1st available 07/[address] Grace Esquivel [facility] [facility] Miscellaneous Notes* Telephone Encounter - Supriya Esquivel - 06/20/2024 3:08 PM EDT Spoke with patient and scheduled 1st available 07/[address] Grace Esquivel * Telephone Encounter - Yaneli Cedeno LPN - 06/20/2024 2:54 PM EDT Okay to schedule. Yaneli Cedeno LPN * Telephone Encounter - Kwaku Forrester PSS - 06/20/2024 2:02 PM EDT Patient has consult to see hematology for Thrombocytosis [D75.839] [facility] Telephone encounter Note * Telephone Encounter - Yaneli Cedeno LPN - 06/20/2024 2:54 PM EDT Okay to schedule. Yaneli Cedeno LPN [facility]05-09-2025 Telephone encounter Note* Telephone Encounter - Kwaku Forrester PSS - 06/20/2024 2:02 PM EDT Patient has consult to see hematology for Thrombocytosis [D75.839] [facility]05-09-2025 Instructions* Patient Instructions* Edwin Naranjo APRN.CNP - 06/20/2024 1:54 PM EDT We discussed your medication refills: - I have sent refills for Wellbutrin 300 mg (1 tablet daily) and folic acid to your preferred pharmacy. Please continue taking these as prescribed. We discussed your elevated platelet count: - Your platelet count is significantly elevated at 1,152,000 (normal range: 150,000-400,000). This places you at a higher risk for complications such as blood clots or stroke. - I am referring you to Dr. Live, a hot pond operator in [place], to further evaluate the cause of your elevated platelets and determine the best course of treatment. - Please ensure that Dr. Live receives your previous records, including the bone marrow biopsy results from [facility] (Dr. Paniagua) in [place], to avoid repeating tests. - You are currently taking [address] Live may recommend adjustments to this or other medications based on your evaluation. We discussed your recent lab results: - Your cholesterol levels have improved, with an LDL of 63 (previously 140). This is excellent progress. - Your liver enzymes and glucose levels are normal. - Your kidney function shows mild chronic kidney disease (stage 3), but no changes to your current treatment plan are needed. Continuing Losartan will help support kidney function. We discussed follow-up care: - I will order labs to check your folate levels at your next visit in 6 months. This will help determine if you still need to continue folic acid supplementation. - You requested your next appointment to be scheduled in mid-November. This has been noted, and we will see you then. Please follow up with the hot pond operator as soon as possible and bring any relevant records to your appointment. Let us know if you have any questions or concerns in the meantime. documented in this encounter[facility]05-[facility]25 History of Present illness Narrative* Edwin Naranjo APRN.CNP - 06/20/2024 1:40 PM EDT Chief Complaint Patient presents with: 6 Month Exam HPI Husam Barrow is a 73 year old male who presents here today for above reason. Husam is a 73-year-old male presenting for a medication refill and evaluation of thrombocytosis. Husam requests refills for Wellbutrin 300 mg, taken once daily, and folic acid, which was prescribedby a previous clinician. He reports doing well overall and denies any side effects from his currentmedications. He is taking 81 mg of aspirin. He has a history of thrombocytosis, with platelet counts progressively increasing over the past twoyears. Recent lab results from June 16 show a platelet count of 1,152,000. Previous counts were 439,000 two years ago, 501,000, 526,000, and 975,000 in November. He was advised to see a hot pond operator in [place] and did so.. He reports that his hot pond operator in [place] was reluctant to prescribe blood thinners due to potential side effects but mentioned that it might be necessary if platelet counts continued to rise. He state sthat he had a bone marrow biopsy that was normal. He denies any current s ymptoms related to thrombocytosis. He also has a history of chronic kidney disease, with fluctuating creatinine levels over the past few years. Recent lab results show normal liver enzymes, a glucose level of 83, and an LDL of 63, down from 140 previously. He is currently on losartan to support kidney function. He had an echocardiogram in February or March, performed by his cryogenic transport driver, Dr. John, at [facility] in [place]. He denies any issues with heart valves. His blood pressure has been stable, running in the 120s/70-80s. Past medical history, appointments, medications, allergies reviewed. EXAM: BP 136/78 Pulse (!) 50 Resp 16 Wt 86.2 kg (190 lb) SpO2 98% BMI 26.50 kg/m General Appearance: Well appearing, alert, in no acute distress, well-hydrated, well nourished.. Lungs: Lungs clear to auscultation. No wheezing, rhonchi, rales.. Heart: RRR without murmur, gallop, or rubs. No ectopy, Negative except for murmur: 1-2/6 systolic low pitched soft murmur URSB . Latest Ref Rng 11/25/2022 06/01/2023 11/21/2023 12/12/2023 06/16/2024 WBC 3.70 - 11.00 k/uL 10.95 8.91 9.23 13.08 (H) 10.78 RBC 4.20 - 6.00 m/uL 4.52 4.25 4.72 4.56 4.03 (L) Hemoglobin 13.0 - 17.0 g/dL 14.3 13.3 15.0 14.5 12.5 (L) Hematocrit 39.0 - 51.0 % 44.0 40.2 46.1 44.7 38.5 (L) MCV 80.0 - 100.0 fL 97.3 94.6 97.7 98.0 95.5 MCH 26.0 - 34.0 pg 31.6 31.3 31.8 31.8 31.0 MCHC 30.5 - 36.0 g/dL 32.5 33.1 32.5 32.4 32.5 RDW-CV 11.5 - 15.0 % 15.6 (H) 14.6 15.3 (H) 14.9 16.0 (H) Platelet Count 150 - 400 k/uL 526 (H) 647 (H) 975 (H) 901 (H) 1,152 (H) MPV 9.0 - 12.7 fL 10.2 10.3 10.2 10.2 10.0 Neut% % 62.0 61.0 61.7 72.4 68.2 Abs Neut (ANC) 1.45 - 7.50 k/uL 6.78 5.43 5.70 9.48 (H) 7.34 Lymph% % 21.0 20.8 21.5 12.9 16.3 Abs Lymph 1.00 - 4.00 k/uL 2.30 1.85 1.98 1.69 1.76 Horry% % 11.2 12.2 10.3 10.8 11.1 Abs Horry <0.87 k/uL 1.23 (H) 1.09 (H) 0.95 (H) 1.41 (H) 1.20 (H) Eosin% % 4.0 5.2 5.3 2.9 3.2 Abs Eosin <0.46 k/uL 0.44 0.46 (H) 0.49 (H) 0.38 0.35 Baso% % 0.8 0.4 0.8 0.5 0.6 Abs Baso <0.11 k/uL 0.09 0.04 0.07 0.06 0.07 Immature Gran % % 1.0 0.4 0.4 0.5 0.6 IMMATURE GRANS (ABS) <0.10 k/uL 0.11 (H) 0.04 0.04 0.06 0.06 NRBC /100 WBC 0.0 0.0 0.0 0.0 0.0 Absolute nRBC <0.01 k/uL <0.01 <0.01 <0.01 <0.01 <0.01 DTYPE Auto Auto Auto Auto Auto Protein, Total 6.3 - 8.0 g/dL 6.8 6.3 7.1 6.5 Albumin 3.9 - 4.9 g/dL 4.1 3.8 (L) 4.3 3.8 (L) Calcium 8.5 - 10.2 mg/dL 9.3 9.3 10.0 9.3 Bilirubin, Total 0.2 - 1.3 mg/dL 0.6 0.7 0.5 0.7 Alkaline Phosphatase 38 - 113 U/L 61 73 72 70 AST 14 -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 management Medical Decision Making Level: 4 - Moderate Brien Singer MD The documentation for this note was completed by Katty Zambrano MA acting as scribe for Brien Singer MD. December 07, 2023 2:55 PM. Katty Zambrano MA documented in this [facility] NoteHNO ID: [id number] Author: BRIEN SINGER MD Service: ? Author Type: Physician Type: Progress Notes Filed: 12/07/2023 15:41 Note Text: Chief Complaint Patient presents with: 6 Month Exam HPI Husam Barrow is a 73 year old male who presents here today for 6 month follow up. Goes to [place], [place] for the winter. No bowel, Gi, or urinary issus. Lipid/CAD: Is on ASA 81 mg daily. No longer using Lipitor as it was causing muscle stiffness and pain about 6 weeks ago. Pain improved off medication. Would prefer to stay off the medication. Cardiomyopathy: Taking Coreg 3.125 mg 1 pill BID and Losartan 25 mg daily. Denies checking BP at home, no chest pains, dizziness, or SOB. States that if he does get chest pains it is very minor. He has no restrictions. Is able to do hard work. If he gets SOB he just sits and relaxes, goes at his own pace. Cardio in [place] Dr. John. MAKENZIE/Depression: Stable with Wellbutrin 300 mg daily. Was following with Psych Dr. White till he retired. Still c/o some SOB ever since having COVID. This is not any worse. He states he gets cold all the time. Past medical history, appointments, medications, allergies reviewed. Previous Medical History PAST MEDICAL HISTORY Diagnosis Date Blood in stool Chewing tobacco use Coronary artery spasm (HCC) Hypertension 02/02/2010 Osteoarthritis, knee bilateral, seeing [facility] Overweight (BMI 25.0-29.9) Pure hypercholesterolemia Syncope 1999 x3 Unspecified asthma(493.90) Unspecified essential hypertension Previous Surgical History PAST SURGICAL HISTORY Procedure Laterality Date ARTHROSCOPY KNEE DIAGNOSTIC W/WO SYNOVIAL BX SPX Arthroscopy, knee COLONOSCOPY 2008 normal, repeat in 10 years COLONOSCOPY N/A 07/06/2022 COLONOSCOPY FLX DX W/COLLJ SPEC WHEN PFRMD 2003 Colonoscopy EGD W/O [facility] SPEC VARICIES INJ N/A 07/06/2022 PAST SURGICAL HISTORY OF 1998 heart cath PAST SURGICAL HISTORY OF 2005 repair fx left foearm plate and screw PAST SURGICAL HISTORY OF N/A 02/2021 Heart Cath in [place] TONSILLECTOMY AND ADENOIDECTOMY Family History FAMILY HISTORY Problem Relation Age of Onset Heart Mother CHF Patient Allergies ALLERGIES Allergen Reactions Toprol Xl [Metoprol* Other: See Comments General illness, felt lousy, GI upset Baycol Current Medications Current Outpatient Medications on File Prior to Visit Medication Sig buPROPion XL (WELLBUTRIN XL) 300 mg 24 hr tablet Take 1 tablet by mouth once daily. TAKE 1 TABLET BY MOUTH ONCE DAILY IN THE MORNING folic acid 1 mg tablet Take 2 tablets by mouth once daily. aspirin 81 mg cap Take 1 capsule by mouth once daily. carvedilol (COREG) 3.125 mg tablet Take 3.125 mg by mouth twice daily. losartan (COZAAR) 25 mg tablet Take 1 tablet by mouth once daily. atorvastatin (LIPITOR) 40 mg tablet Take 1 tablet by mouth daily at bedtime. No current facility-administered medications on file prior to visit. Social History Social History Tobacco Use Smoking status: Never Smokeless tobacco: Former Types: Chew Quit date: 01/12/2023 Tobacco comments: intermittently Vaping Use Vaping status: Never Used Substance Use Topics Alcohol use: Yes Alcohol/week: 1.0 standard drink of alcohol Types: 1 Glasses of Wine (5oz) per week Drug use: No EXAM: BP 128/70 Pulse (!) 56 Resp 16 Wt 91.5 kg (201 lb 11.5 oz) BMI 28.13 kg/m? General Appearance: Well appearing, alert, in no acute distress, well-hydrated, well nourished.. Lungs: Lungs clear to auscultation. No wheezing, rhonchi, rales.. Heart: RRR without murmur, gallop, or rubs. No ectopy. Health Maintenance List Hepatitis C Screening Never done Shingrix Vaccine(1 of 2) Never done DTaP,Tdap,Td Vaccine(2 - Td or Tdap) due on 10/10/2016 RSV Vaccine(1 - 1-dose 75+ series) Never done Influenza Vaccine(1) due on 08/11/2024 Covid-19 Vaccine( - season) due on 12/06/2024 Annual PCP Team Chronic Disease Visit due on 06/06/2024 Diabetes Screening due on 11/20/2026 Lipid Screening due on 11/20/2028 Colorectal Cancer Screening due on 07/06/2032 Spirometry Completed Advance Directive Discussion Completed Pneumococcal Vaccine: 65+ Completed Data reviewed Appointment on 11/21/2023 Component Date Value Cholesterol, Total 11/21/2023 209 (H) Triglyceride 11/21/2023 174 (H) HDL Cholesterol 11/21/2023 34 (L) Non HDL Cholesterol 11/21/2023 175 (H) Fasting Time 11/21/2023 12 VLDL Cholesterol 11/21/2023 35 (H) TC:HDL Ratio 11/21/2023 6.15 (H) LDL Cholesterol 11/21/2023 140 (H) LDL:HDL Ratio 11/21/2023 4.12 (H) Protein, Total 11/21/2023 7.1 Albumin 11/21/2023 4.3 Calcium, Total 11/21/2023 10.0 Bilirubin, Total 11/21/2023 0.5 Alkaline Phosphatase 11/21/2023 72 AST 11/21/2023 30 ALT 11/21/2023 23 Glucose 11/21/2023 103 (H) BUN 11/21/2023 15 Creatinine 11/21/2023 1.43 (H) Sodium 11/21/2023 141 Potassium 11/21/2023 4.7 (more content not included)...[facility]04-25-2024 History of Present illness Narrative* Brine Singer MD - 06/07/2023 8:20 AM EDT Chief Complaint Patient presents with: 6 Month Exam HPI Husam Barrow is a 72 year old male who presents here today for 6 month follow up. Here with . Denies any Advanced directive. Declined Hep C screening and all recommended vaccines. No bowel, Gi, or urinary issues. Does get up about once a night to urinate. Cardiomyopathy: Nonischemic; Taking Losartan 25 mg daily and Coreg 3.125 mg 1 pill BID. No chest pains, dizziness, or SOB. Had EKG in [place] which he says was good. Cardio in [place] Dr. Dillon. Does not check BP much at home. Heart rate tends to run in the 50s. Depression/MAKENZIE: Stable with Wellbutrin 300 mg once daily. No longer follows with Psych, Dr. Mcclellan. CAD: Taking Lipitor 40 mg daily. No regular exercise. Tries to watch diet. Had right knee xr done. He saw an Ortho provider Dr. Epperson in [place] who said he had arthritis but not bad enough to need an injection. Advised to use Tylenol prn pain. Past medical history, appointments, medications, allergies reviewed. Previous Medical History PAST MEDICAL HISTORY Diagnosis Date Blood in stool Chewing tobacco use Coronary artery spasm (HCC) Hypertension 02/02/2010 Osteoarthritis, knee bilateral, seeing [facility] Overweight (BMI 25.0-29.9) Pure hypercholesterolemia Syncope 1999 x3 Unspecified asthma(493.90) Unspecified essential hypertension Previous Surgical History PAST SURGICAL HISTORY Procedure Laterality Date ARTHROSCOPY KNEE DIAGNOSTIC W/WO SYNOVIAL BX SPX Arthroscopy, knee COLONOSCOPY 2008 normal, repeat in 10 years COLONOSCOPY N/A 07/06/2022 COLONOSCOPY FLX DX W/COLLJ SPEC WHEN PFRMD 2003 Colonoscopy EGD W/O [facility] SPEC VARICIES INJ N/A 07/06/2022 PAST SURGICAL HISTORY OF 1998 heart cath PAST SURGICAL HISTORY OF 2005 repair fx left foearm plate and screw PAST SURGICAL HISTORY OF N/A 02/2021 Heart Cath in [place] TONSILLECTOMY & ADENOIDECTOMY <AGE 10 Family History FAMILY HISTORY Problem Relation Age of Onset Heart Mother CHF Patient Allergies ALLERGIES Allergen Reactions Toprol Xl [Metoprol* Other: See Comments General illness, felt lousy, GI upset Baycol Current Medications Current Outpatient Medications on File Prior to Visit Medication Sig albuterol HFA (PROVENTIL HFA, VENTOLIN HFA) 90 mcg/actuation inhaler Inhale 2 Puffs as instructed every 4 hours as needed for wheezing/shortness of breath. benzonatate (TESSALON PERLES) 100 mg capsule Take 1 capsule by mouth three times a day as needed. aspirin 81 mg cap Take 1 capsule by mouth once daily. buPROPion XL (WELLBUTRIN XL) 300 mg 24 hr tablet Take 1 tablet by mouth once daily. TAKE 1 TABLET BY MOUTH ONCE DAILY IN THE MORNING folic acid 1 mg tablet Take 2 tablets by mouth once daily. carvedilol (COREG) 3.125 mg tablet Take 3.125 mg by mouth twice daily. losartan (COZAAR) 25 mg tablet Take 1 tablet by mouth once daily. atorvastatin (LIPITOR) 40 mg tablet Take 1 tablet by mouth daily at bedtime. No current facility-administered medications on file prior to visit. Social History Social History Tobacco Use Smoking status: Never Smokeless tobacco: Former Types: Chew Quit date: 01/12/2023 Tobacco comments: intermittently Vaping Use Vaping Use: Never used Substance Use Topics Alcohol use: Yes Alcohol/week: 1.0 standard drink of alcohol Types: 1 Glasses of Wine (5oz) per week Drug use: No EXAM: BP 130/80 Pulse (!) 50 Resp 16 Wt 93.2 kg (205 lb 6.4 oz) SpO2 96% BMI 28.65 kg/m General Appearance: Well appearing, alert, in no acute distress, well-hydrated, well nourished.. Lungs: Lungs clear to auscultation. No wheezing, rhonchi, rales.. Heart: RRR without murmur, gallop, or rubs. No ectopy. Health Maintenance List Hepatitis C Screening Never done Shingrix Vaccine(1 of 2) Never done RSV Vaccine(1 - 1-dose 60+ series) Never done DTaP,Tdap,Td Vaccine(2 - Td or Tdap) due on 10/10/2016 Advance Directive Discussion due on 02/12/2023 Covid-19 Vaccine( - season) due on 12/02/2023 Influenza Vaccine(Season Ended) due on 10/14/2023 BP Controlled (<130/80) due on 01/31/2024 Annual PCP Team Chronic Disease Visit due on 06/06/2024 Diabetes Screening due on 05/31/2026 Lipid Screening due on 05/31/2028 Colorectal Cancer Screening due on 07/06/2032 Spirometry Completed Pneumococcal Vaccine: 65+ Completed Data reviewed Appointment on 06/01/2023 Component Date Value Protein, Total 06/01/2023 6.3 Albumin 06/01/2023 3.8 (L) Calcium, Total 06/01/2023 9.3 Bilirubin, Total 06/01/2023 0.7 Alkaline Phosphatase 06/01/2023 73 AST 06/01/2023 31 ALT 06/01/2023 25 Glucose 06/01/2023 96 BUN 06/01/2023 20 Creatinine 06/01/2023 1.31 (H) Sodium 06/01/2023 141 Potassium 06/01/2023 4.0 Chloride 06/01/2023 106 (H) CO2 06/01/2023 26 Anion Gap 06/01/2023 9 Estimated Glomerular Miles* 06/01/2023 57 (L) Cholesterol, Total 06/01/2023 120 Triglyceride 06/01/2023 162 (H) HDL Cholesterol 06/01/2023 32 (L) Non HDL Cholesterol 06/01/2023 88 Fasting Time 06/01/2023 12 VLDL Cholesterol 06/01/2023 32 (H) TC:HDL Ratio 06/01/2023 3.75 LDL Cholesterol 06/01/2023 56 LDL:HDL Ratio 06/01/2023 1.75 WBC 06/01/2023 8.91 RBC 06/01/2023 4.25 Hemoglobin 06/01/2023 13.3 Hematocrit 06/01/2023 40.2 MCV 06/01/2023 94.6 MCH 06/01/2023 31.3 MCHC 06/01/2023 33.1 RDW-CV 06/01/2023 14.6 Platelet Count 06/01/2023 647 (H) MPV 06/01/2023 10.3 Neutrophils % 06/01/2023 61.0 Abs Neut 06/01/2023 5.43 Lymphocytes % 06/01/2023 20.8 Abs Lymph 06/01/2023 1.85 Monocytes % 06/01/2023 12.2 Abs Horry 06/01/2023 1.09 (H) Eosinophils % 06/01/2023 5.2 Abs Eosin 06/01/2023 0.46 (H) Basophils % 06/01/2023 0.4 Abs Baso 06/01/2023 0.04 Immature Granulocytes % 06/01/2023 0.4 Abs Immature Gran 06/01/2023 0.04 NRBC 06/01/2023 0.0 Absolute nRBC 06/01/2023 <0.01 Diff Type 06/01/2023 Auto ASSESSMENT/PLAN: 1. Anxiety with depression - ICD9: 300.4, ICD10: F41.8 (primary diagnosis) Stable Continue current medications. - BUPROPION XL 300 MG 24 HR TAB 2. Nonischemic cardiomyopathy (HCC) - ICD9: 425.4, ICD10: I42.8 Continue current medications. Continue with Cardio in [place] 3. Coronary artery spasm (HCC) - ICD9: 413.9, ICD10: I20.1 Continue current medications. Continue with Cardio in [place] 4. Mixed hyperlipidemia - ICD9: 272.2, ICD10: E78.2 - Controlled - Continue current medications - Counseled on healthy diet and regular exercise Follow up in 6 months with fasting labs prior. I agree with the Chief Complaint, ROS, and Past Histories independently gathered by the clinical server support technician and the remaining scribed note accurately describes my personal service to the patient. Medical Decision Making: Problems: Moderate: 2+ stable chronic illnesses Data: Unique test result(s) reviewed: 3+ Unique test(s) ordered: 3+ Risk: Moderate: Drug management Medical Decision Making Level: 4 - Moderate Brien Singer MD The documentation for this note was completed by Katty Zambrano MA acting as scribe for Brien Singer MD. June 07, 2023 8:19 AM. Katty Zambrano MA documented in this encounter[facility]12-19-2023 History of Present illness Narrative* Soraya Lopes RT(R) - 01/30/2023 1:00 PM EST Radiology Service Progress Note PATIENT NAME: Husam Barrow DATE OF SERVICE: January 30, 2023 TIME: 12:41 PM PATIENT IDENTITY VERIFICATION COMPLETED USING TWO (2) IDENTIFIERS: Name and Date of confirmedby patient verbally. FALL SCREENING: Has the patient had 2 falls in the last year or 1 fall with injury or currently using an Ambulatory Assistive Device (Walker, Cane, Wheelchair, Crutches, etc.)? No PATIENT GENDER DATA: Male PATIENT RELEVANT IMPLANT DATA REVIEWED: Yes RADIOLOGY DEPARTMENT: General X-ray: Exam(s) Completed: Chest X-Ray PERIPHERAL IV DATA: Not applicable SIGNED BY: KAMILA Hsu) January 30, 2023 12:41 PM documented in this encounterUpper [facility]10-20-2023 History of Present illness Narrative* Brien Singer MD - 12/01/2022 8:20 AM EDT Chief Complaint Patient presents with: F/U 6 Month HPI Husam Barrow is a 72 year old male who presents here today for a 6 month follow up. Pt here today for a 6 month follow up. Will be getting ready to leave down south to [place] Sunday. GI/Uro - C/o of dark stool, f/u with [facility], had colonoscopy completed on 07/06/22. Was placed on short term Rx of Prilosec, completed this. HTN - Checks BP at home on occasion, generally stable but will vary. Denies any chest pain or dizziness. Does have occasional issues with getting sob since having Covid over 2 years ago. Full cardiacdone WNL. Notes that breathing has gotten better since last visit. Follows with Cardio in [facility]. On current regimen of Coreg 3.125 mg 1 tab po bid and Losartan 25 mg daily. Lipids - Walks for exercise and tries to watch diet, portion sizes. is a great cook, eats a lot of home cooked meals. On current regimen of Lipitor 40 mg daily and Aspirin 81 mg daily. Tolerating well. MAKENZIE/Depression - Follows with Psych, Dr. White, stable on his current regimen of Wellbutrin 300 mg once daily. Reports that Dr. White is now retired and is wondering if he can prescribe medications. HM - Declines Szl. Will get flu shot at Pharmacy in [place]. Past medical history, appointments, medications, allergies reviewed. Previous Medical History PAST MEDICAL HISTORY Diagnosis Date Blood in stool Chewing tobacco use Coronary artery spasm (HCC) Hypertension 02/02/2010 Osteoarthritis, knee bilateral, seeing [facility] Overweight (BMI 25.0-29.9) Pure hypercholesterolemia Syncope 1999 x3 Unspecified asthma(493.90) Unspecified essential hypertension Previous Surgical History PAST SURGICAL HISTORY Procedure Laterality Date ARTHROSCOPY KNEE DIAGNOSTIC W/WO SYNOVIAL BX SPX Arthroscopy, knee COLONOSCOPY 2008 normal, repeat in 10 years COLONOSCOPY FLX DX W/COLLJ SPEC WHEN PFRMD 2003 Colonoscopy PAST SURGICAL HISTORY OF 1998 heart cath PAST SURGICAL HISTORY OF 2005 repair fx left foearm plate and screw PAST SURGICAL HISTORY OF N/A 02/2021 Heart Cath in [place] TONSILLECTOMY & ADENOIDECTOMY <AGE 10 Family History FAMILY HISTORY Problem Relation Age of Onset Heart Mother CHF Patient Allergies ALLERGIES Allergen Reactions Toprol Xl [Metoprol* Other: See Comments General illness, felt lousy, GI upset Baycol Current Medications Current Outpatient Medications on File Prior to Visit Medication Sig omeprazole (PRILOSEC) 40 mg capsule Take 1 capsule by mouth once daily. folic acid 1 mg tablet Take 2 tablets by mouth once daily. carvedilol (COREG) 3.125 mg tablet Take 3.125 mg by mouth twice daily. buPROPion XL (WELLBUTRIN XL) 300 mg 24 hr tablet TAKE 1 TABLET BY MOUTH ONCE DAILY IN THE MORNING losartan (COZAAR) 25 mg tablet Take 1 tablet by mouth once daily. atorvastatin (LIPITOR) 40 mg tablet Take 1 tablet by mouth daily at bedtime. Current Facility-Administered Medications on File Prior to Visit Medication lactated ringers iv infusion Social History Social History Tobacco Use Smoking status: Never Smokeless tobacco: Current Types: Chew Tobacco comments: intermittently Vaping Use Vaping Use: Never used Substance Use Topics Alcohol use: Yes Alcohol/week: 2.5 standard drinks of alcohol Types: 1 Glasses of Wine (5oz) per week Drug use: No EXAM: BP 120/78 (BP Site: Left Arm, BP Position: Sitting, BP Cuff Size: Regular Adult) Pulse 60 Resp 16 Wt 90.1 kg (198 lb 9.6 oz) BMI 27.70 kg/m General Appearance: Well appearing, alert, in no acute distress, well-hydrated, well nourished.. Lungs: Lungs clear to auscultation. No wheezing, rhonchi, rales.. Heart: RRR without murmur, gallop, or rubs. No ectopy. Health Maintenance List Covid-19 Vaccine(1) Never done Hepatitis C Screening Never done BP Controlled (<130/80) Never done Shingrix Vaccine(1 of 2) Never done DTaP,Tdap,Td Vaccine(2 - Td or Tdap) due on 10/10/2016 Influenza Vaccine(1) due on 10/13/2022 Annual PCP Team Chronic Disease Visit due on 06/02/2023 Diabetes Screening due on 05/30/2025 Lipid Screening due on 05/31/2027 Colorectal Cancer Screening due on 07/06/2032 Spirometry Completed Abdominal Aortic Aneurysm Screening Completed Advance Directive Discussion Completed Pneumococcal Vaccine: 65+ Completed Data reviewed Appointment on 11/25/2022 Component Date Value Cholesterol, Total 11/25/2022 140 Triglyceride 11/25/2022 149 HDL Cholesterol 11/25/2022 55 Non HDL Cholesterol 11/25/2022 85 Fasting Time 11/25/2022 13 VLDL Cholesterol 11/25/2022 30 (H) TC:HDL Ratio 11/25/2022 2.55 LDL Cholesterol 11/25/2022 55 LDL:HDL Ratio 11/25/2022 1.00 Protein, Total 11/25/2022 6.8 Albumin 11/25/2022 4.1 Calcium, Total 11/25/2022 9.3 Bilirubin, Total 11/25/2022 0.6 Alkaline Phosphatase 11/25/2022 61 AST 11/25/2022 47 (H) ALT 11/25/2022 56 (H) Glucose 11/25/2022 74 BUN 11/25/2022 23 Creatinine 11/25/2022 1.19 Sodium 11/25/2022 138 Potassium 11/25/2022 4.8 Chloride 11/25/2022 104 CO2 11/25/2022 22 Anion Gap 11/25/2022 12 Estimated Glomerular Miles* 11/25/2022 64 WBC 11/25/2022 10.95 RBC 11/25/2022 4.52 Hemoglobin 11/25/2022 14.3 Hematocrit 11/25/2022 44.0 MCV 11/25/2022 97.3 MCH 11/25/2022 31.6 MCHC 11/25/2022 32.5 RDW-CV 11/25/2022 15.6 (H) Platelet Count 11/25/2022 526 (H) MPV 11/25/2022 10.2 Neutrophils % 11/25/2022 62.0 Abs Neut 11/25/2022 6.78 Lymphocytes % 11/25/2022 21.0 Abs Lymph 11/25/2022 2.30 Monocytes % 11/25/2022 11.2 Abs Horry 11/25/2022 1.23 (H) Eosinophils % 11/25/2022 4.0 Abs Eosin 11/25/2022 0.44 Basophils % 11/25/2022 0.8 Abs Baso 11/25/2022 0.09 Immature Granulocytes % 11/25/2022 1.0 Abs Immature Gran 11/25/2022 0.11 (H) NRBC 11/25/2022 0.0 Absolute nRBC 11/25/2022 <0.01 Diff Type 11/25/2022 Auto ASSESSMENT/PLAN: 1. Essential hypertension - ICD9: 401.9, ICD10: I10 (primary diagnosis) - Controlled - Continue current medications - Recommend home blood pressure monitoring, to bring results to next visit - Encouraged sodium restriction, DASH or Mediterranean diet - Recommend regular aerobic exercise 2. Mixed hyperlipidemia - ICD9: 272.2, ICD10: E78.2 - Controlled - Continue current medications - Counseled on healthy diet and regular exercise 3. Anxiety with depression - ICD9: 300.4, ICD10: F41.8 - Stable, will manage medication since controlled - BUPROPION XL 300 MG 24 HR TAB 4. Coronary artery spasm (HCC) - ICD9: 413.9, ICD10: I20.1 - Stable 5. Nonischemic cardiomyopathy (HCC) - ICD9: 425.4, ICD10: I42.8 - Stable - cont f/u with Cardio 6. Elevated liver enzymes - ICD9: 790.5, ICD10: R74.8 - Stable - Cont to monitor through labs. 6 mo f/u with labs. I agree with the Chief Complaint, ROS, and Past Histories independently gathered by the clinical server support technician and the remaining scribed note accurately describes my personal service to the patient. Medical Decision Making: Problems: Moderate: 2+ stable chronic illnesses Data: Unique test result(s) reviewed: 3+ Unique test(s) ordered: 3+ Risk: Moderate: Drug management Medical Decision Making Level: 4 - Moderate Brien Singer MD The documentation for this note was completed by Mary Pimentel Ma acting as scribe for Brien Singer MD. December 01, 2022 8:29 AM. Mary Pimentel Ma documented in this encounter[facility]05-[facility]23 History and physical note * Kaushik Ruiz MD - 07/06/2022 12:45 PM EDT Husam Barrow is a 71 year old male who presents here today for 6 month follow up. Goes to [facility] from Dec-May with weather running 75-85. 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 Denies having an advanced directive. HM-Depression screening, denies feeling depressed or hopeless. No bowel, gi, or urinary issues. Willing to do IFOBT, last colonoscopy was done in 2010. HTN: Takes Coreg 3.125 mg BID and Losartan 25 mg daily. Checking BP at home with readings running 130/90-80. Denies any chest pains, dizziness, or SOB. He states his heart rate runs in the 60-50 range. Still gets SOB from having Covid 2 years ago but it has not worsened. He had full cardiac work updone and it was normal. Follows with a Student Teaching Coordinator Dr. Guaman yearly in [facility]. Pt likes to have copy of labs faxed to Dr. Guaman at [phone]. Lipid: Taking Lipitor 40 mg daily. Tolerating well, no myalgia or gi upset. Also taking Aspirin 81 mg daily. Does walk for exercise. Tries to watch diet by cutting back on portion sizes. MAKENZIE/Depression: Follows with Dr. White. Stable with Wellbutrin 300 mg 1 pill daily. Past medical history, appointments, medications, allergies reviewed. Previous Medical History PAST MEDICAL HISTORY PAST MEDICAL HISTORY Diagnosis Date Chewing tobacco use Coronary artery spasm (HCC) Hypertension 02/02/2010 Osteoarthritis, knee bilateral, seeing [facility] Overweight (BMI 25.0-29.9) Pure hypercholesterolemia Syncope 1999 x3 Unspecified asthma(493.90) Unspecified essential hypertension Previous Surgical History PAST SURGICAL HISTORY PAST SURGICAL HISTORY Procedure Laterality Date ARTHROSCOPY KNEE DIAGNOSTIC W/WO SYNOVIAL BX SPX Arthroscopy, knee COLONOSCOPY 2008 normal, repeat in 10 years COLONOSCOPY FLX DX W/COLLJ SPEC WHEN PFRMD 2003 Colonoscopy PAST SURGICAL HISTORY OF 1998 heart cath PAST SURGICAL HISTORY OF 2005 repair fx left foearm plate and screw PAST SURGICAL HISTORY OF N/A 02/2021 Heart Cath [place] TONSILLECTOMY & ADENOIDECTOMY <AGE 10 Family History FAMILY HISTORY FAMILY HISTORY Problem Relation Age of Onset Heart Mother CHF Patient Allergies ALLERGIES ALLERGIES Allergen Reactions Toprol Xl [Metoprol* Other: See Comments General illness, felt lousy, GI upset Baycol Current Medications Current Outpatient Medications on File Prior to Visit Medication Sig folic acid 1 mg tablet Take 2 tablets by mouth once daily. carvedilol (COREG) 3.125 mg tablet Take 3.125 mg by mouth twice daily. buPROPion XL (WELLBUTRIN XL) 300 mg 24 hr tablet TAKE 1 TABLET BY MOUTH ONCE DAILY IN THE MORNING losartan (COZAAR) 25 mg tablet Take 1 tablet by mouth once daily. atorvastatin (LIPITOR) 40 mg tablet Take 1 tablet by mouth daily at bedtime. aspirin, enteric coated (ASPIRIN, ENTERIC COATED) 81 mg EC tablet Take 1 tablet by mouth once daily. No current facility-administered medications on file prior to visit. Social History SOCIAL HISTORY Social History Tobacco Use Smoking status: Never Smokeless tobacco: Current Types: Chew Tobacco comments: intermittently Vaping Use Vaping Use: Never used Substance Use Topics Alcohol use: Yes Alcohol/week: 2.5 standard drinks Types: 1 Glasses of Wine (5oz) per week Drug use: No EXAM: BP 128/80 Pulse 66 Resp 16 Wt 90.9 kg (200 lb 8 oz) BMI 28.77 kg/m General Appearance: Well appearing, alert, in no acute distress, well-hydrated, well nourished.. Lungs: Lungs clear to auscultation. No wheezing, rhonchi, rales.. Heart: RRR without murmur, gallop, or rubs. No ectopy. Health Maintenance List SHINGRIX VACCINE(1 of 2) Never done DTAP,TDAP,TD(2 - Td or Tdap) due on 10/10/2016 COLORECTAL CANCER SCREENING due on 07/23/2020 ADVANCE DIRECTIVE DISCUSSION Never done DEPRESSION ASSESSMENT due on 02/12/2022 HEPATITIS C SCREENING due on 05/30/2022 COVID-19 VACCINE(1) due on 05/30/2022 ANNUAL PCP TEAM CHRONIC DISEASE VISIT due on 11/28/2022 BP CONTROLLED (<130/80) due on 11/28/2022 DIABETES SCREEN due on 11/25/2024 LIPID SCREEN due on 11/25/2026 SPIROMETRY Completed ABDOMINAL AORTIC ANEURYSM SCREENING Completed INFLUENZA Completed PNEUMOCOCCAL: 65+ Completed Data reviewed Appointment on 05/30/2022 Component Date Value Cholesterol, Total 05/30/2022 137 Triglyceride 05/30/2022 88 HDL Cholesterol 05/30/2022 48 Non HDL Cholesterol 05/30/2022 89 Fasting Time 05/30/2022 15 VLDL Cholesterol 05/30/2022 18 TC:HDL Ratio 05/30/2022 2.85 LDL Cholesterol 05/30/2022 71 LDL:HDL Ratio 05/30/2022 1.48 Protein, Total 05/30/2022 6.9 Albumin 05/30/2022 4.3 Calcium, Total 05/30/2022 9.5 Bilirubin, Total 05/30/2022 0.4 Alkaline Phosphatase 05/30/2022 69 AST 05/30/2022 39 ALT 05/30/2022 44 Glucose 05/30/2022 103 (A) BUN 05/30/2022 17 Creatinine 05/30/2022 1.20 Sodium 05/30/2022 141 Potassium 05/30/2022 4.5 Chloride 05/30/2022 105 CO2 05/30/2022 27 Anion Gap 05/30/2022 9 Estimated Glomerular Miles* 05/30/2022 64 WBC 05/30/2022 10.17 RBC 05/30/2022 4.62 Hemoglobin 05/30/2022 14.4 Hematocrit 05/30/2022 44.8 MCV 05/30/2022 97.0 MCH 05/30/2022 31.2 MCHC 05/30/2022 32.1 RDW-CV 05/30/2022 14.2 Platelet Count 05/30/2022 501 (A) MPV 05/30/2022 10.5 Neutrophils % 05/30/2022 63.9 Abs Neut 05/30/2022 6.49 Lymphocytes % 05/30/2022 23.0 Abs Lymph 05/30/2022 2.34 Monocytes % 05/30/2022 9.1 Abs H[place] 05/30/2022 0.93 (A) Eosinophils % 05/30/2022 2.9 Abs Eosin 05/30/2022 0.30 Basophils % 05/30/2022 0.8 Abs Baso 05/30/2022 0.08 Immature Granulocytes % 05/30/2022 0.3 Abs Immature Gran 05/30/2022 0.03 NRBC 05/30/2022 0.0 Absolute nRBC 05/30/2022 <0.01 Diff Type 05/30/2022 Auto ASSESSMENT/PLAN: 1. Nonischemic cardiomyopathy (HCC) - ICD9: 425.4, ICD10: I42.8 (primary diagnosis) Stable - LIPID PANEL BASIC - COMP METABOLIC PANEL - CBC + DIFF 2. Screening for colon cancer - ICD9: V76.51, ICD10: Z12.11 - FECAL OCCULT BLOOD TEST 3. Mixed hyperlipidemia - ICD9: 272.2, ICD10: E78.2 - good control - Continue current medication. - LIPID PANEL BASIC - COMP METABOLIC PANEL 4. Chewing tobacco use - ICD9: 305.1, ICD10: Z72.0 - Cessation encouraged. - Physiologic and physical aspects of tobacco addiction as well as strategies for quitting were discussed. - Counseling was given focusing on the harmful effects of this addiction especially given the patient's medical condition(s) which will be worsened because of the chemicals in tobacco. 5. Anxiety with depression - ICD9: 300.4, ICD10: F41.8 Continue current medications. Follow with Psych Follow up in 6 months with labs prior I agree with the Chief Complaint, ROS, and Past Histories independently gathered by the clinical server support technician and the remaining scribed note accurately describes my personal service to the patient. Medical Decision Making: Problems: Moderate: 2+ stable chronic illnesses Data: Unique test result(s) reviewed: 3+ Unique test(s) ordered: 3+ Risk: Moderate: Drug management Medical Decision Making Level: 4 - Moderate Brien Singer MD The documentation for this note was completed by Katty Zambrano Ma acting as scribe for Brien Singer MD. June 01, 2022 8:57 AM. Katty Zambrano Ma UPDATED HISTORY AND PHYSICAL EXAMINATION SERVICE DATE: 07/06/2022 SERVICE TIME: 11:38 AM PHYSICAL EXAM MUST BE COMPLETED ON ADMISSION The History and Physical (completed in the past 30 days) has been reviewed and the patient has beenexamined. The contents accurately reflect the patient's condition with the following additions or revisions since the H&P was completed. Examination indicates no changes. This H&P can be found in the attached. SIGNATURE: Kaushik Ruiz III, MD PATIENT NAME: Husam Barrow DATE: July 06, 2022 TIME: 11:37 AM documented in this encounter[facility]05-25-2023 Nurse Note* Karin Chaidez RN - 07/06/2022 12:07 PM EDT Patient received in phase II via cart left lateral position, eyes closed, open to verbal stimuli, skin warm and dry, respirations regular and unlabored, abdomen soft and non distended, denies pain ornausea. Resting comfortably on left side. Pulse oxygen readings 89-90% on RA, applied oxygen at 3 Lper NC. documented in this encounterUpper [facility] Center05-13-2023 History of Present illness Narrative* Yazmin Whitley APRN.FARIHA - 06/24/2022 10:46 AM EDT Patient came in with complaints of black stool. Patient says he has had it on and off for a while but for the last 3 weeks its been very consistent. Patient says he does have a stomach pain and gnawing feeling. Patient is now nauseous with it. Patient also has very dizzy and lightheaded spells. At this time patient is being referred to the emergency department for full evaluation and blood work. Family member that brought him will take him to the ER. Patient was okay with this care plan documented in this encounterUpper [facility] Center04-20-2023 History of Present illness Narrative* Brien Singer MD - 06/01/2022 9:00 AM EDT Chief Complaint Patient presents with: 6 Month Exam HPI Husam Barrow is a 71 year old male who presents here today for 6 month follow up. Goes to [facility] from Dec-May with weather running 75-85. 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 Denies having an advanced directive. HM-Depression screening, denies feeling depressed or hopeless. No bowel, gi, or urinary issues. Willing to do IFOBT, last colonoscopy was done in 2010. HTN: Takes Coreg 3.125 mg BID and Losartan 25 mg daily. Checking BP at home with readings running 130/90-80. Denies any chest pains, dizziness, or SOB. He states his heart rate runs in the 60-50 range. Still gets SOB from having Covid 2 years ago but it has not worsened. He had full cardiac work updone and it was normal. Follows with a Student Teaching Coordinator Dr. Guaman yearly in [facility]. Pt likes to have copy of labs faxed to Dr. Guaman at [phone]. Lipid: Taking Lipitor 40 mg daily. Tolerating well, no myalgia or gi upset. Also taking Aspirin 81 mg daily. Does walk for exercise. Tries to watch diet by cutting back on portion sizes. MAKENZIE/Depression: Follows with Dr. White. Stable with Wellbutrin 300 mg 1 pill daily. Past medical history, appointments, medications, allergies reviewed. Previous Medical History PAST MEDICAL HISTORY Diagnosis Date Chewing tobacco use Coronary artery spasm (HCC) Hypertension 02/02/2010 Osteoarthritis, knee bilateral, seeing [facility] Overweight (BMI 25.0-29.9) Pure hypercholesterolemia Syncope 1999 x3 Unspecified asthma(493.90) Unspecified essential hypertension Previous Surgical History PAST SURGICAL HISTORY Procedure Laterality Date ARTHROSCOPY KNEE DIAGNOSTIC W/WO SYNOVIAL BX SPX Arthroscopy, knee COLONOSCOPY 2008 normal, repeat in 10 years COLONOSCOPY FLX DX W/COLLJ SPEC WHEN PFRMD 2003 Colonoscopy PAST SURGICAL HISTORY OF 1998 heart cath PAST SURGICAL HISTORY OF 2005 repair fx left foearm plate and screw PAST SURGICAL HISTORY OF N/A 02/2021 Heart Cath in [place] TONSILLECTOMY & ADENOIDECTOMY <AGE 10 Family History FAMILY HISTORY Problem Relation Age of Onset Heart Mother CHF Patient Allergies ALLERGIES Allergen Reactions Toprol Xl [Metoprol* Other: See Comments General illness, felt lousy, GI upset Baycol Current Medications Current Outpatient Medications on File Prior to Visit Medication Sig folic acid 1 mg tablet Take 2 tablets by mouth once daily. carvedilol (COREG) 3.125 mg tablet Take 3.125 mg by mouth twice daily. buPROPion XL (WELLBUTRIN XL) 300 mg 24 hr tablet TAKE 1 TABLET BY MOUTH ONCE DAILY IN THE MORNING losartan (COZAAR) 25 mg tablet Take 1 tablet by mouth once daily. atorvastatin (LIPITOR) 40 mg tablet Take 1 tablet by mouth daily at bedtime. aspirin, enteric coated (ASPIRIN, ENTERIC COATED) 81 mg EC tablet Take 1 tablet by mouth once daily. No current facility-administered medications on file prior to visit. Social History Social History Tobacco Use Smoking status: Never Smokeless tobacco: Current Types: Chew Tobacco comments: intermittently Vaping Use Vaping Use: Never used Substance Use Topics Alcohol use: Yes Alcohol/week: 2.5 standard drinks Types: 1 Glasses of Wine (5oz) per week Drug use: No EXAM: BP 128/80 Pulse 66 Resp 16 Wt 90.9 kg (200 lb 8 oz) BMI 28.77 kg/m General Appearance: Well appearing, alert, in no acute distress, well-hydrated, well nourished.. Lungs: Lungs clear to auscultation. No wheezing, rhonchi, rales.. Heart: RRR without murmur, gallop, or rubs. No ectopy. Health Maintenance List SHINGRIX VACCINE(1 of 2) Never done DTAP,TDAP,TD(2 - Td or Tdap) due on 10/10/2016 COLORECTAL CANCER SCREENING due on 07/23/2020 ADVANCE DIRECTIVE DISCUSSION Never done DEPRESSION ASSESSMENT due on 02/12/2022 HEPATITIS C SCREENING due on 05/30/2022 COVID-19 VACCINE(1) due on 05/30/2022 ANNUAL PCP TEAM CHRONIC DISEASE VISIT due on 11/28/2022 BP CONTROLLED (<130/80) due on 11/28/2022 DIABETES SCREEN due on 11/25/2024 LIPID SCREEN due on 11/25/2026 SPIROMETRY Completed ABDOMINAL AORTIC ANEURYSM SCREENING Completed INFLUENZA Completed PNEUMOCOCCAL: 65+ Completed Data reviewed Appointment on 05/30/2022 Component Date Value Cholesterol, Total 05/30/2022 137 Triglyceride 05/30/2022 88 HDL Cholesterol 05/30/2022 48 Non HDL Cholesterol 05/30/2022 89 Fasting Time 05/30/2022 15 VLDL Cholesterol 05/30/2022 18 TC:HDL Ratio 05/30/2022 2.85 LDL Cholesterol 05/30/2022 71 LDL:HDL Ratio 05/30/2022 1.48 Protein, Total 05/30/2022 6.9 Albumin 05/30/2022 4.3 Calcium, Total 05/30/2022 9.5 Bilirubin, Total 05/30/2022 0.4 Alkaline Phosphatase 05/30/2022 69 AST 05/30/2022 39 ALT 05/30/2022 44 Glucose 05/30/2022 103 (A) BUN 05/30/2022 17 Creatinine 05/30/2022 1.20 Sodium 05/30/2022 141 Potassium 05/30/2022 4.5 Chloride 05/30/2022 105 CO2 05/30/2022 27 Anion Gap 05/30/2022 9 Estimated Glomerular Miles* 05/30/2022 64 WBC 05/30/2022 10.17 RBC 05/30/2022 4.62 Hemoglobin 05/30/2022 14.4 Hematocrit 05/30/2022 44.8 MCV 05/30/2022 97.0 MCH 05/30/2022 31.2 MCHC 05/30/2022 32.1 RDW-CV 05/30/2022 14.2 Platelet Count 05/30/2022 501 (A) MPV 05/30/2022 10.5 Neutrophils % 05/30/2022 63.9 Abs Neut 05/30/2022 6.49 Lymphocytes % 05/30/2022 23.0 Abs Lymph 05/30/2022 2.34 Monocytes % 05/30/2022 9.1 Abs Horry 05/30/2022 0.93 (A) Eosinophils % 05/30/2022 2.9 Abs Eosin 05/30/2022 0.30 Basophils % 05/30/2022 0.8 Abs Baso 05/30/2022 0.08 Immature Granulocytes % 05/30/2022 0.3 Abs Immature Gran 05/30/2022 0.03 NRBC 05/30/2022 0.0 Absolute nRBC 05/30/2022 <0.01 Diff Type 05/30/2022 Auto ASSESSMENT/PLAN: 1. Nonischemic cardiomyopathy (HCC) - ICD9: 425.4, ICD10: I42.8 (primary diagnosis) Stable - LIPID PANEL BASIC - COMP METABOLIC PANEL - CBC + DIFF 2. Screening for colon cancer - ICD9: V76.51, ICD10: Z12.11 - FECAL OCCULT BLOOD TEST 3. Mixed hyperlipidemia - ICD9: 272.2, ICD10: E78.2 - good control - Continue current medication. - LIPID PANEL BASIC - COMP METABOLIC PANEL 4. Chewing tobacco use - ICD9: 305.1, ICD10: Z72.0 - Cessation encouraged. - Physiologic and physical aspects of tobacco addiction as well as strategies for quitting were discussed. - Counseling was given focusing on the harmful effects of this addiction especially given the patient's medical condition(s) which will be worsened because of the chemicals in tobacco. 5. Anxiety with depression - ICD9: 300.4, ICD10: F41.8 Continue current medications. Follow with Psych Follow up in 6 months with labs prior I agree with the Chief Complaint, ROS, and Past Histories independently gathered by the clinical server support technician and the remaining scribed note accurately describes my personal service to the patient. Medical Decision Making: Problems: Moderate: 2+ stable chronic illnesses Data: Unique test result(s) reviewed: 3+ Unique test(s) ordered: 3+ Risk: Moderate: Drug management Medical Decision Making Level: 4 - Moderate Brien Singer MD The documentation for this note was completed by Katty Zambrano Ma acting as scribe for Brien Singer MD. June 01, 2022 8:57 AM. Katty Zambrano Ma documented in this encounterUpper [facility] Center11-16-2022 Miscellaneous Notes* Telephone Encounter - Edwin Naranjo APRN.CNP - 12/28/2021 3:54 PM EST The following approved medication requests have been transmitted electronically. Requested Prescriptions Pending Prescriptions Disp Refills folic acid 1 mg tablet 180 tablet 3 Sig: Take 2 tablets by mouth once daily. Edwin Naranjo APRN.CNP * Telephone Encounter - Anna Acosta - 12/28/2021 3:13 PM EST Patient has been identified by name and date of : Yes Patient phones for refill(s): Requested Prescriptions Pending Prescriptions Disp Refills folic acid 1 mg tablet 180 tablet 3 Sig: Take 2 tablets by mouth once daily. Date of last office visit in primary care: 11/28/21 Labs-11/25/21 NOV-06/01/22 med filled 11/16/20 Last 2 Encounter Wt Readings: Date: Wt: 11/28/2021 87 kg (191 lb 14.4 oz) 05/30/2021 91.6 kg (202 lb) Previous labs/tests for medication: Not applicable Please advise. Thank you. Anna Acosta documented in this encounterUpper [facility] Center10-17-2022 History of Present illness Narrative* Brien Singer MD - 11/28/2021 9:00 AM EDT Chief Complaint Patient presents with: 6 Month Exam HPI Husam Barrow is a 71 year old male who presents here today for a 6 month follow up. Pt here today for a 6 month follow up. Goes to [facility] from Dec-May. Denies any stomach, bowel or urinary issues. He has been losing weight but just watching portion sizes. Cardio: Hx of coronary spasm/non ischemic cardiomyopathy. Has had extensive workup by [facility] [place], [place] whom he follows with yearly. Still has dyspnea. Cardiac cath showed arteries OK, EF 45%. Currently taking Coreg 3.125 mg bid, Losartan 25 mg once daily and Lipitor 40 mg daily. Was previously on Verapamil. Chronic dyspnea after having Covid 2 years ago. He states if he paces himself he can tolerate or control the SOB but if he exerts himself hard he will become SOB. PFT's completed in the past, these were normal. Depression/MAKENZIE: Follows with Dr. White and treated with Wellbutrin XL 300 mg once daily. Past medical history, appointments, medications, allergies reviewed. Previous Medical History PAST MEDICAL HISTORY Diagnosis Date Chewing tobacco use Coronary artery spasm (HCC) Hypertension 02/02/2010 Osteoarthritis, knee bilateral, seeing [facility] Overweight (BMI 25.0-29.9) Pure hypercholesterolemia Syncope 1999 x3 Unspecified asthma(493.90) Unspecified essential hypertension Previous Surgical History PAST SURGICAL HISTORY Procedure Laterality Date ARTHROSCOPY KNEE DIAGNOSTIC W/WO SYNOVIAL BX SPX Arthroscopy, knee COLONOSCOPY 2008 normal, repeat in 10 years COLONOSCOPY FLX DX W/COLLJ SPEC WHEN PFRMD 2003 Colonoscopy PAST SURGICAL HISTORY OF 1998 heart cath PAST SURGICAL HISTORY OF 2005 repair fx left foearm plate and screw PAST SURGICAL HISTORY OF N/A 02/2021 Heart Cath in [place] TONSILLECTOMY & ADENOIDECTOMY <AGE 10 Family History FAMILY HISTORY Problem Relation Age of Onset Heart Mother CHF Patient Allergies ALLERGIES Allergen Reactions Toprol Xl [Metoprol* Other: See Comments General illness, felt lousy, GI upset Baycol Current Medications Current Outpatient Medications on File Prior to Visit Medication Sig carvedilol (COREG) 3.125 mg tablet Take 3.125 mg by mouth twice daily. buPROPion XL (WELLBUTRIN XL) 300 mg 24 hr tablet TAKE 1 TABLET BY MOUTH ONCE DAILY IN THE MORNING losartan (COZAAR) 25 mg tablet Take 1 tablet by mouth once daily. atorvastatin (LIPITOR) 40 mg tablet Take 1 tablet by mouth daily at bedtime. aspirin, enteric coated (ASPIRIN, ENTERIC COATED) 81 mg EC tablet Take 1 tablet by mouth once daily. folic acid 1 mg tablet Take 2 tablets by mouth once daily. No current facility-administered medications on file prior to visit. Social History Social History Tobacco Use Smoking status: Never Smokeless tobacco: Current Types: Chew Tobacco comments: intermittently Vaping Use Vaping Use: Never used Substance Use Topics Alcohol use: Yes Alcohol/week: 2.5 standard drinks Types: 1 Glasses of Wine (5oz) per week Drug use: No EXAM: BP 118/70 Pulse 68 Resp 16 Wt 87 kg (191 lb 14.4 oz) BMI 27.53 kg/m General Appearance: Well appearing, alert, in no acute distress, well-hydrated, well nourished.. Lungs: Lungs clear to auscultation. No wheezing, rhonchi, rales.. Heart: RRR without murmur, gallop, or rubs. No ectopy. Health Maintenance List SHINGRIX VACCINE(1 of 2) Never done DTAP,TDAP,TD(2 - Td or Tdap) due on 10/10/2016 COLORECTAL CANCER SCREENING due on 07/23/2020 ADVANCE DIRECTIVE DISCUSSION Never done DEPRESSION ASSESSMENT Never done INFLUENZA(1) due on 10/13/2021 HEPATITIS C SCREENING due on 05/30/2022 COVID-19 VACCINE(1) due on 05/30/2022 ANNUAL PCP TEAM CHRONIC DISEASE VISIT due on 05/30/2022 DIABETES SCREEN due on 05/24/2024 LIPID SCREEN due on 05/24/2026 SPIROMETRY Completed ABDOMINAL AORTIC ANEURYSM SCREENING Completed PNEUMOCOCCAL: 65+ Completed Data Reviewed: Results Only on 11/25/2021 Component Date Value WBC 11/25/2021 9.22 RBC 11/25/2021 4.50 Hemoglobin 11/25/2021 14.2 Hematocrit 11/25/2021 42.8 MCV 11/25/2021 95.1 MCH 11/25/2021 31.6 MCHC 11/25/2021 33.2 RDW-CV 11/25/2021 14.4 Platelet Count 11/25/2021 439 (A) MPV 11/25/2021 10.7 Neut% 11/25/2021 63.9 Abs Neut 11/25/2021 5.89 Lymph% 11/25/2021 21.1 Abs Lymph 11/25/2021 1.95 Horry% 11/25/2021 9.3 Abs Horry 11/25/2021 0.86 Eosin% 11/25/2021 4.7 Abs Eosin 11/25/2021 0.43 Baso% 11/25/2021 0.8 Abs Baso 11/25/2021 0.07 Immature Gran % 11/25/2021 0.2 Abs Immature Gran 11/25/2021 <0.03 NRBC 11/25/2021 0.0 Absolute nRBC 11/25/2021 <0.01 Diff Type 11/25/2021 Auto Protein, Total 11/25/2021 6.5 Albumin 11/25/2021 4.1 Calcium, Total 11/25/2021 9.2 Bilirubin, Total 11/25/2021 0.6 Alkaline Phosphatase 11/25/2021 81 AST 11/25/2021 33 ALT 11/25/2021 23 Glucose 11/25/2021 90 BUN 11/25/2021 15 Creatinine 11/25/2021 1.12 Sodium 11/25/2021 141 Potassium 11/25/2021 4.1 Chloride 11/25/2021 107 (A) CO2 11/25/2021 23 Anion Gap 11/25/2021 11 Estimated Glomerular Miles* 11/25/2021 69 Cholesterol, Total 11/25/2021 124 Triglyceride 11/25/2021 81 HDL Cholesterol 11/25/2021 47 Non HDL Cholesterol 11/25/2021 77 Fasting Time 11/25/2021 12 VLDL Cholesterol 11/25/2021 16 TC:HDL Ratio 11/25/2021 2.64 LDL Cholesterol 11/25/2021 61 LDL:HDL Ratio 11/25/2021 1.30 ASSESSMENT/PLAN: 1. Mixed hyperlipidemia - ICD9: 272.2, ICD10: E78.2 (primary diagnosis) - good control - Continue current medication. - Encouraged following a low fat, low cholesterol diet. - Discussed the benefits of regular aerobic exercise and weight loss. 2. Chewing tobacco use - ICD9: 305.1, ICD10: Z72.0 - Cessation encouraged. - Physiologic and physical aspects of tobacco addiction as well as strategies for quitting were discussed. - Counseling was given focusing on the harmful effects of this addiction especially given the patient's medical condition(s) which will be worsened because of the chemicals in tobacco. - Counseling was given 3-4 minutes. 3. Coronary artery spasm (HCC) - ICD9: 413.9, ICD10: I20.1 Continue current medications. Continue with Cardio 4. Need for influenza vaccination - ICD9: V04.81, ICD10: Z23 - INFLUENZA SEASONAL QUADRIVALENT HIGH DOSE AGE 65+ Follow up in 6 months with fasting labs prior. I agree with the Chief Complaint, ROS, and Past Histories independently gathered by the clinical server support technician and the remaining scribed note accurately describes my personal service to the patient. Medical Decision Making: Problems: Moderate: 2+ stable chronic illnesses Data: Unique test result(s) reviewed: 3+ Unique test(s) ordered: 3+ Risk: Moderate: Drug management Medical Decision Making Level: 4 - Moderate Brien Singer MD The documentation for this note was completed by Katty Zambrano Ma acting as scribe for Brien Singer MD. November 28, 2021 9:03 AM. Katty Zambrano Ma documented in this encounter[facility]22 History of Present illness Narrative* Brien Singer MD - 05/30/2021 9:00 AM EDT Chief Complaint Patient presents with: F/U 6 Month HPI Husam Barrow is a 70 year old male who presents here today for a 6 month follow up. Pt here today for a routine 6 month follow up. Reports that while in [place], [place] it was very nice.Has a house down there. Asking if his could become an established patient as she does not havea Family Doctor in [place]. She has one in [place]. She needs a Family Doctor to monitor labs as her Provider treats her with strong medication for Neuralgia. GI/Urinary - Denies any stomach, bowel or urinary issues. Coronary spasm/non ischemic cardiomyopathy: Was seen by Cardiology in [place], and extensive workup. Cath showed arteries OK, EF 45%. Medications changed from verapamil to coreg, losartan and Lipitor. Still has shortness of breath with activity. Pulm - Chronic; continued worsening sob with exertion since having Covid. Note that sob occurs onlywith exertion. PFT's were ordered and completed. Results were normal. Pt was referred to Cardiologyfor further work up. Was given a rescue inhaler at previous OV, but not using. Dr. Guaman told him that he had heart damage and may take time to get better. Lipids - Was recently started on Lipitor 40 mg once daily by Cardiology in [place]. Pt underwent a cardiac workup while down in [place] by Dr. Guaman, seen on 03/18/21. He had EKG, Stress Test, Echo andHeart Cath. No stents were placed. Pt was started on Losartan 25 mg once daily, Coreg 3.125 mg 1 tab po bid and Aspirin 81 mg daily. Cardizem was d/c. Pt to f/u with Dr. Guaman in December. See's Dr. White, taking Wellbutrin XL 300 mg once daily. HM - Declines Covid vaccine. Declines Hep C screening. Past medical history, appointments, medications, allergies reviewed. Previous Medical History PAST MEDICAL HISTORY Diagnosis Date Chewing tobacco use Coronary artery spasm (HCC) Hypertension 02/02/2010 Osteoarthritis, knee bilateral, seeing [facility] Overweight (BMI 25.0-29.9) Pure hypercholesterolemia Syncope 1999 x3 Unspecified asthma(493.90) Unspecified essential hypertension Previous Surgical History PAST SURGICAL HISTORY Procedure Laterality Date COLONOSCOP W/ OR W/O BRSH SPEC 2003 Colonoscopy COLONOSCOPY 2008 normal, repeat in 10 years KNEE SCOPE,DIAGNOSTIC Arthroscopy, knee PAST SURGICAL HISTORY OF 1998 heart cath PAST SURGICAL HISTORY OF 2005 repair fx left foearm plate and screw REMOVE TONSILS/ADENOIDS,<12 Y/O Family History FAMILY HISTORY Problem Relation Age of Onset Heart Mother CHF Patient Allergies ALLERGIES Allergen Reactions [facility] Current Medications Current Outpatient Medications on File Prior to Visit Medication Sig dilTIAZem CD (CARDIZEM CD) 180 mg 24 hr capsule Take 1 capsule by mouth once daily. folic acid 1 mg tablet Take 2 tablets by mouth once daily. albuterol HFA (VENTOLIN HFA) 90 mcg/actuation inhaler Inhale 2 Puffs as instructed every 6 hours asneeded for wheezing/shortness of breath. No current facility-administered medications on file prior to visit. Social History Social History Tobacco Use Smoking status: Never Smoker Smokeless tobacco: Current User Types: Chew Tobacco comment: intermittently Vaping Use Vaping Use: Never used Substance Use Topics Alcohol use: Yes Alcohol/week: 2.5 standard drinks Types: 1 Glasses of Wine (5oz) per week Drug use: No EXAM: BP 132/84 (BP Site: Right Arm, BP Position: Sitting, BP Cuff Size: Regular Adult) Pulse (!) 52 Resp 16 Wt 91.6 kg (202 lb) BMI 28.98 kg/m General Appearance: Well appearing, alert, in no acute distress, well-hydrated, well nourished.. Lungs: Lungs clear to auscultation. No wheezing, rhonchi, rales.. Heart: RRR without murmur, gallop, or rubs. No ectopy. Health Maintenance List COVID-19 VACCINE(1) Never done HEPATITIS C SCREENING Never done SHINGRIX VACCINE(1 of 2) Never done DTAP,TDAP,TD(2 - Td or Tdap) due on 10/10/2016 COLORECTAL CANCER SCREENING due on 07/23/2020 ADVANCE DIRECTIVE DISCUSSION Never done ANNUAL PCP TEAM CHRONIC DISEASE VISIT due on 11/16/2021 DEPRESSION SCREENING due on 11/16/2021 DIABETES SCREEN due on 06/03/2023 LIPID SCREEN due on 11/13/2024 SPIROMETRY Completed ABDOMINAL AORTIC ANEURYSM SCREENING Completed INFLUENZA Completed PNEUMOVAX AGE 65 AND OVER WITH 5YR LOOKBACK Completed MENINGOCOCCAL CONJUGATE Aged Out Data reviewed Appointment on 05/24/2021 Component Date Value Protein, Total 05/24/2021 7.0 Albumin 05/24/2021 4.3 Calcium, Total 05/24/2021 9.4 Bilirubin, Total 05/24/2021 0.6 Alkaline Phosphatase 05/24/2021 90 AST 05/24/2021 41 (A) ALT 05/24/2021 37 Glucose 05/24/2021 97 BUN 05/24/2021 23 Creatinine 05/24/2021 1.48 (A) Sodium 05/24/2021 139 Potassium 05/24/2021 4.6 Chloride 05/24/2021 104 CO2 05/24/2021 25 Anion Gap 05/24/2021 10 Estimated Glomerular Miles* 05/24/2021 50 (A) Cholesterol, Total 05/24/2021 135 Triglyceride 05/24/2021 114 HDL Cholesterol 05/24/2021 48 Non HDL Cholesterol 05/24/2021 87 Fasting Time 05/24/2021 14 VLDL Cholesterol 05/24/2021 23 TC:HDL Ratio 05/24/2021 2.81 LDL Cholesterol 05/24/2021 64 LDL:HDL Ratio 05/24/2021 1.33 WBC 05/24/2021 10.86 RBC 05/24/2021 4.54 Hemoglobin 05/24/2021 14.3 Hematocrit 05/24/2021 43.1 MCV 05/24/2021 94.9 MCH 05/24/2021 31.5 MCHC 05/24/2021 33.2 RDW-CV 05/24/2021 14.2 Platelet Count 05/24/2021 438 (A) MPV 05/24/2021 10.4 Absolute nRBC 05/24/2021 <0.01 ASSESSMENT/PLAN: 1. Mixed hyperlipidemia - ICD9: 272.2, ICD10: E78.2 (primary diagnosis) - good control - Continue current medication. - ATORVASTATIN 40 MG TABLET - ASPIRIN 81 MG TABLET,DELAYED RELEASE - COMP METABOLIC PANEL - LIPID PANEL BASIC - CBC + DIFF 2. Essential hypertension - ICD9: 401.9, ICD10: I10 - good control - Continue current medication(s) - Recommended regular aerobic exercise. - Recommend home blood pressure monitoring, to bring results in on next visit - Goal of BP <130/80 - LOSARTAN 25 MG TABLET - COMP METABOLIC PANEL - LIPID PANEL BASIC - CBC + DIFF 3. Coronary artery spasm (HCC) - ICD9: 413.9, ICD10: I20.1 - Stable - CBC + DIFF 4. MATUTE (dyspnea on exertion) - ICD9: 786.09, ICD10: R06.00 Stable - Related to Covid and previous heart damage. - CBC + DIFF 5. Non ischemic cardiomyopathy Continue current medications. 6 mo f/u with labs. I agree with the Chief Complaint, ROS, and Past Histories independently gathered by the clinical server support technician and the remaining scribed note accurately describes my personal service to the patient. Medical Decision Making: Problems: Moderate: 2+ stable chronic illnesses Data: Unique test result(s) reviewed: 3+ Unique test(s) ordered: 3+ Risk: Moderate: Drug management Medical Decision Making Level: 4 - Moderate Brien Singer MD The documentation for this note was completed by Mary Pimentel Ma acting as scribe for Brien Singer MD. May 30, 2021 9:13 AM. Mary Pimentel Ma documented in this encounterUpper [facility]04-08-2022 Miscellaneous Notes* Telephone Encounter - Katty Zambrano Ma - 05/20/2021 4:44 PM EDT Pt notified. Katty Zabmrano Ma * Telephone Encounter - Brien Singer MD - 05/20/2021 4:42 PM EDT Labs ordered Brien Singer MD * Telephone Encounter - Mayra Mcclure RN - 05/20/2021 9:19 AM EDT Patient calls and states that he has appointment with provider on 05/30/2020. Patient asking if there are labs that provider wants patient to get done before appointment? If so please give patient a call back so he can come in and get labs done. Mayra Mcclure RN documented in this encounterUpper [facility] Center12-22-2010 History of Past illness Narrative* Problem Noted Date Resolved Date Hypertension 02/02/2010 11/20/2019 Other closed fractures of distal end of radius ( alone) 09/07/2004 09/03/2018 Pure hypercholesterolemia 2016 Asthma 11/30/2014 Unspecified essential hypertension 02/19/2009 documented as of this encounter (statuses as of 05/20/2021) [facility] of Past illness Narrative* Problem Noted Date Resolved Date Hypertension 02/02/2010 11/20/2019 Other closed fractures of distal end of radius ( alone) 09/07/2004 09/03/2018 Pure hypercholesterolemia 2016 Asthma 11/30/2014 Unspecified essential hypertension 02/19/2009 documented as of this encounter (statuses as of 05/30/2021) [facility] of Past illness Narrative* Problem Noted Date Resolved Date Hypertension 02/02/2010 11/20/2019 Other closed fractures of distal end of radius ( alone) 09/07/2004 09/03/2018 Pure hypercholesterolemia 2016 Asthma 11/30/2014 Unspecified essential hypertension 02/19/2009 documented as of this encounter (statuses as of 11/28/2021) [place] [address]-22-2010 History of Past illness Narrative* Problem Noted Date Resolved Date Hypertension 02/02/2010 11/20/2019 Other closed fractures of distal end of radius ( alone) 09/07/2004 09/03/2018 Pure hypercholesterolemia 2016 Asthma 11/30/2014 Unspecified essential hypertension 02/19/2009 documented as of this encounter (statuses as of 12/28/2021) [facility] of Past illness Narrative* Problem Noted Date Resolved Date Hypertension 02/02/2010 11/20/2019 Other closed fractures of distal end of radius ( alone) 09/07/2004 09/03/2018 Pure hypercholesterolemia 2016 Asthma 11/30/2014 Unspecified essential hypertension 02/19/2009 documented as of this encounter (statuses as of 06/01/2022) [facility] of Past illness Narrative* Problem Noted Date Resolved Date Hypertension 02/02/2010 11/20/2019 Other closed fractures of distal end of radius ( alone) 09/07/2004 09/03/2018 Pure hypercholesterolemia 2016 Asthma 11/30/2014 Unspecified essential hypertension 02/19/2009 documented as of this encounter (statuses as of 06/24/2022) [facility] of Past illness Narrative* Problem Noted Date Diagnosed Date Resolved Date Hypertension 02/02/2010 11/20/2019 Other closed fractures of di stal end of radius (alone) 09/07/2004 09/03/2018 Pure hypercholesterolemia Asthma 11/30/2014 Unspecified essential hypertension 02/19/2009 documented as of this encounter (statuses as of 12/01/2022) [facility] of Past illness Narrative* Problem Noted Date Diagnosed Date Resolved Date Hypertension 02/02/2010 11/20/2019 Other closed fractures of di stal end of radius (alone) 09/07/2004 09/03/2018 Pure hypercholesterolemia Asthma 11/30/2014 Unspecified essential hypertension 02/19/2009 documented as of this encounter (statuses as of 12/17/2022) [facility] Center[facility]ult [facility] Author Lance Garrett [facility] Note Date/Time November 06, 2024 11:40am [facility] Medical Records Department [address] [place] [address] Consultation - Cardiology 11/06/24 1131 MR#: [id number] Acct: [id number] Name: HUSAM BARROW Rep #:[id number] : 1950 74 From: Lance Garrett MD PCP: Dr. Brien Singer MD Status:RE G ER Location: ED Assessment & Plan Assessment/Plan (1) Non-STEMI (non-ST elevated myocardial infarction): PLAN: Patient presents with a history of nausea and vomiting associated with dizziness and elevated troponins at 309 with hypotension. His ECG shows new ST segment depression and chronic right bundle branch block in his anterior septal leads. The ST depressions are more prominent than on the July 2024 ECG. Given the patient's presumed history of medically treated coronary artery disease, elevated troponins, the nausea vomiting and hypotension, and his ECG showing the subtle changes I recommend the patient proceed with urgent left heart catheterization. The procedure risk/benefit and alternatives were explained to the patient and his son and they voiced understanding and agreed toproceed. (2) Hypertension: QUALIFIERS: Hypertension type: primary hypertension Qualified Code(s): I10 - Essential (primary) hypertension PLAN: Blood pressure was low upon presentation it is currently normalized after IV fluids. (3) High platelet count: PLAN: Patient carries a history of thrombocytosis he is currently being treated with hydroxyurea. PLAN: Plan 1. Recommend urgent left heart catheterization today. Dr. Duran to perform. 2. Will follow-up with further recommendations once results of the catheter areavailable. HPI Consult Data Date of Consult: 11/06/24 HPI Narrative Reason for Consultation: Acute coronary syndrome HPI Narrative: HUSAM BARROW, is a 74 M who presents with a sudden onset of nausea with vomiting and dizziness and feeling off balance this morning. The patient presented to the emergency department with a blood pressure 82/47 and received fluids his blood pressure is 125/70. Heart rate is in the 55-60 bpm range in sinus rhythm. Original ECG shows there is chronic right bundle branch block with ST depression in V2 through V4. Initial troponin was 309. The patient carries a history of bradycardia and had been hospitalized back in July 2024 with syncope/near syncope and had his carvedilol discontinued. It was reinstituted at some point in time and he is now back on carvedilol. The patient carries a history of thrombocytosis and is on hydroxyurea. He also has a history of hypertension and is treated with a combination of carvedilol diltiazem and losartan. The patient reports that he had a left heart catheterization done December 2023 in [place]. 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 That catheterization did not show anything of any significance apparently it was done after an abnormal stress test which was donebecause of his progressive fatigue. Most of the information is obtained from the patient and his son who is his power of electrical continuity tester. The patient carries a history of 26 years ago having some angina damage to his heart as a way he describes it. He has never had a stent or bypass surgery but he has had at least 2 heart catheterizations that resulted in no interventions by his report. The patient is on aspirin and atorvastatin. Currently the patient is asymptomatic lying on the gurney in the emergency department. [facility] Medical History Fatigue Generalized weakness Adverse drug reaction Symptomatic bradycardia Generalized weakness Syncope and collapse High platelet count CAD (coronary artery disease) Hypertension Angina of effort Home Medications ?Medication ?Instructions ?Recorded ?Last Taken ?Type diltiazem HCl 180 mg 1 cap PO DAILY Check with pr imary 11/28/19 11/27/19 08:00 History capsule,extended release 24 hr doctor aspirin 81 mg tablet,delayed 81 mg PO DAILY 06/24/22 U nknown History release atorvastatin 40 mg tablet 20 mg PO DAILY 06/24/22 Unkn own History bupropion HCl 300 mg 24 hr tablet, 300 mg PO DAILY Unknown History extended release folic acid 1 mg tablet 1 mg PO DAILY 06/24/22 Unkno wn History losartan 50 mg tablet 25 mg PO DAILY 06/24/22 Unkn own History carvedilol 3.125 mg tablet 6.25 mg (2 x 3.125 mg) PO D AILY #1 08/03/24 Unknown Rx TAB hydroxyurea 500 mg capsule 500 mg PO DAILY 08/03/24 Un known History Allergy/AdvReac Type Severity Reaction Status Date / Time No Known Allergies Allergy Verified 11/06/24 09:30 Surgical History S/P ORIF (open reduction internal fixation) fracture Social History Smoking Status: Never smoker ROS Constitutional Constitutional: Reports as per HPI Eyes Eyes: Reports systems reviewed and no addt'l complaints, except as documented ENT HEENT: Reports systems reviewed and no addt'l complaints, except as documented Cardiovascular Cardiovascular: Reports as per HPI Respiratory/Chest Respiratory/Chest: Reports as per HPI Gastrointestinal Gastrointestinal: Reports as per HPI Genitourinary Genitourinary: Reports systems reviewed and no addt'l complaints, except as documented Musculoskeletal Musculoskeletal: Reports systems reviewed and no addt'l complaints, except as documented Integumentary Integumentary: Reports systems reviewed and no addt'l complaints, except as documented Neurologic Neurologic: Reports systems reviewed and no addt'l complaints, except as documented Psychiatric Psychiatric: Reports systems reviewed and no addt'l complaints, except as documented Endocrine Endocrinology: Reports systems reviewed and no addt'l complaints, except as documented Hematologic/Lymphatic Hematologic/Lymphatic: Reports as per HPI Allergic/Immunologic Allergic/Immunologic: Reports systems reviewed and no addt'l complaints, except as documented Physical Exam Const alert and oriented x3 HEENT normocephalic Eyes EOMs intact bilaterally Neck no JVD and no carotid bruits Chest inspection of chest normal Resp normal respiratory effort and clear to auscultation bilaterally Cardio Rate: regular rate Rhythm: regular rhythm Heart Sounds: S1 normal and S2 normal; Negative for click, gallop or murmur Peripheral Pulses: radial pulses present bilateral 2+ and femoral pulses presentbilateral 2+ GI normal to inspection, nondistended, normoactive bowel sounds Extremity no pedal edema Neuro Neuro Narrative: Alert and oriented x 3 Psych mental status grossly normal Charges/Coding Visit Charges Inpatient E&M: 90082 Init Hosp L2 Objective Data Vital Signs: Vital Signs Temp Pulse Resp BP Pulse Ox O2 Del Method 98 F 57 L 18 126/84 H 97 Room Air 11/06/24 09:11/06/24 11:11/06/24 11:11/06/24 11:11/06/24 11:11/06/24 11:25 Oxygen Delivery Method Room Air Weight: 189 lb 6.033 oz Body Mass Index (BMI) 26.4 Intake & Output: Intake and Output for Last 24 Hours 11/04/24 11/05/24 11/06/24 23:59 23:59 23:59 Intake Total 600 / 600 Balance 600 / 600 Lab / Micro Data Attestation: I reviewed the patient's lab results. 11/06/24 09:32 11/06/24 09:32 Labs: Laboratory Results - last 24 hr 11/06/24 09:32: WBC 11.1 H, RBC 3.22 L, Hgb 12.0 L, Hct 35.9 L, MCV 111.5 H, MCH37.3 H, MCHC 33.4, RDW Std Deviation 63.5 H, RDW Coeff of Christian 15.4 H, Plt Count 406, MPV 9.6, Immature Gran % (Auto) 0.700, Neut % (Auto) 71.1 H, Lymph % (Auto)9.4 L, Horry % (Auto) 13.8 H, Eos % (Auto) 4.6, Baso % (Auto) 0.4, Absolute Neuts(auto) 7.9 H, Absolute Lymphs (auto) 1.04, Nucleated RBC % 0, Sodium 136, Potassium 4.5, Chloride 103, Carbon Dioxide 18.0 L, Anion Gap 16 H, BUN 19, Creatinine 1.19, Estim Creat Clear Calc 56.25, Est GFR (MDRD) Non-Af 63, BUN/Creatinine Ratio 16.3, Glucose 101 H, Calcium 8.2, Troponin T High Sens 309 H* D 11/06/24 10:00: Lactic Acid 1.0 11/06/24 10:17: Urine Color Yellow, Urine Clarity Clear, Urine pH 6.0, Ur Specific Ignacio 1.015, Urine Protein 15 H, Urine Glucose (UA) Normal, Urine Ketones Negative, Urine Occult Blood 10 H, Urine Nitrite Negative, Urine Bilirubin Negative, Urine Urobilinogen Normal, Ur Leukocyte Esterase Negative, Urine RBC 0 SEEN, Urine WBC 0 SEEN, Ur Squamous Epith Cells 0 SEEN, Urine Bacteria 1+, Urine Mucus 0 SEEN Micro: Microbiology 11/06/24 10:00 Mucosa - Nose SARS-CoV-2, Influenza & RSV (PCR) - Final Rhythm Strip Rhythm Strip: Sinus Rhythm Rate: 59 Cardiology Labs/Tests 11/06/24 09:32: WBC 11.1 H, RBC 3.22 L, Hgb 12.0 L, Hct 35.9 L, MCV 111.5 H, MCH37.3 H, MCHC 33.4, Plt Count 406, MPV 9.6, Immature Gran % (Auto) 0.700, Neut % (Auto) 71.1 H, Lymph % (Auto) 9.4 L, Horry % (Auto) 13.8 H, Eos % (Auto) 4.6, Baso % (Auto) 0.4, Absolute Neuts (auto) 7.9 H, Nucleated RBC % 0, Sodium 136, Potassium 4.5, Chloride 103, Carbon Dioxide 18.0 L, Anion Gap 16 H, BUN 19, Creatinine 1.19, Est GFR (MDRD) Non-Af 63, BUN/Creatinine Ratio 16.3, Glucose 101 H, Calcium 8.2 11/06/24 10:00: Lactic Acid 1.0 11/06/24 10:17: Urine Color Yellow, Urine Clarity Clear, Urine pH 6.0, Ur Specific Ignacio 1.015, Urine Protein 15 H, Urine Glucose (UA) Normal, Urine Ketones Negative, Urine Occult Blood 10 H, Urine Nitrite Negative, Urine Bilirubin Negative, Urine Urobilinogen Normal, Ur Leukocyte Esterase Negative, Urine RBC 0 SEEN, Urine WBC 0 SEEN Rhythm: EKG: ECHO: Stress Test: Cardiac Cath: PCI: CT Surgery: Holter monitor: EPS: PPM: CXR: Chest CT Scan: Radiography Diagnostic Testing: Radiology Impression Brain CT 11/06/24 09:43 IMPRESSION: No acute intracranial abnormalities. Reading Location: [facility] Chest X-Ray 11/06/24 09:54 IMPRESSION: The cardiomediastinal silhouette is stable, with a tortuous aorta noted. No evidence of cardiomegaly. 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 Minimal areas of linear scarring or discoid atelectasis are seen in the right lower lung. Lungs otherwise appear clear of acute disease. No pleural effusion or pneumothorax is noted. No interval osseous change is seen. Reading Location: [id number] Risk Score for UA/STEMI Assesmment (YES = 1) Risk Stratification Applicable: Yes Age > or = 65: Yes > or = 3 CAD risk factors (HTN, Hypercholesterolemia, Diabetes, family hx, current smoker): No Known CAD (Stenosis > or = 50%): No ASA used in past 7 days: Yes Severe angina (> or = 2 episodes in 24 hrs): No EKG ST change > or = 0.5mm: Yes Positive cardiac markers: Yes Score MUKUND Risk Score of mortality/ recurrent ischemic event over the next 14 days: 4 = 19.9% - Intermediate 11/06/24 1140 <Electronically signed by Lance Garrett MD> Cosigner Signature (if applicable): CC: Dr. Brien Singer MD~ Signed [facility] Work Phone: Consult note Author Hailey Moore [facility] Note Date/Time November 07, 2024 11:21am [facility] Medical Records Department [address] [place] [address] Counseling Note - Pharmacy 11/07/241119 MR#: [id number] Acct: [id number] Name: HUSAM BARROW Rep #:[id number] : 1950 74 From: Hailey Moore PCP: Dr. Brien Singer MD Status:AD M IN Location: [place] [address] [place] Med Reconciliation Pharmacy Service has performed discharge medication reconciliation for this patient. The patient's discharge medication list was reviewed for discrepancies and discrepancies were resolved. Medications at Discharge Home Medications diltiazem HCl 180 mg capsule,extended release 24 hr 1 cap PO DAILY Check with primary doctor 11/28/19 aspirin 81 mg tablet,delayed release 81 mg PO DAILY 06/24/22 bupropion HCl 300 mg 24 hr tablet, extended release 300 mg PO DAILY 06/24/22 folic acid 1 mg tablet 2 mg PO DAILY 06/24/22 losartan 50 mg tablet 25 mg PO DAILY 06/24/22 hydroxyurea 500 mg capsule 500 mg PO DAILY 08/03/24 atorvastatin 80 mg tablet 80 mg PO QHS 30 days #30 tabs 11/07/24 carvedilol 6.25 mg tablet 6.25 mg PO BIDCM 30 days #60 tabs 11/07/24 11/07/24 1121 <Electronically signed by Hailey Moore> Date _ Hailey Elmore Signature (if applicable): Date CC: ~ Signed [facility] Work Phone: Discharge summary Author Brien Cunha [facility] Note Date/Time August 03, 2024 9:38 am [facility] Medical Records Department [address] [place] [address] Instructions for Home/Discharge Instructions 08/03/24928 MR#: [id number] Acct: [id number] Name: HUSAM BARROW Rep #:[id number] : 1950 74 From: Brien Cunha DO PCP: Dr. Brien Singer MD Status:AD M OPAL Discharge Instructions Diet Discharge Diet: No restrictions DC O2, CPAP, BIPAP needs Home O2 Discharge instructions: No Dressing / Incision Discharge Activity: Return to Normal Activity Weight Bearing Status: Full weight bearing Follow Up Care Test Results: Test results from this visit will be discussed in further detail at your follow- up appointment, if applicable. Discharge Plan Admission Admit Date/Time: 08/03/24 01:44 Primary Reason for Your Visit: Syncope Attending Provider: Brien Cunha Primary Care Provider: Brien Singer Consulting Providers: Jasper Morrison Instructions Additional Instructions / Restrictions: Contact your oncologist to discuss your use of hydroxyurea Discharge Orders/Prescriptions Prescriptions: Continued diltiazem HCl 180 MG capsule,extended release 24hr 1 cap PO DAILY Patient Comments: TAKE 1 CAPSULE BY MOUTH ONCE DAILY acetaminophen 325 MG tablet 650 mg PO Q6H PRN PRN (Reason: Pain Score 1-10/Temp > 100.7 F) 0RF losartan 50 mg tablet 25 mg PO DAILY Patient Comments: TAKE 1 TABLET BY MOUTH ONCE DAILY atorvastatin 40 mg tablet 20 mg PO DAILY Patient Comments: TAKE 1 TABLET BY MOUTH ONCE DAILY AT BEDTIME aspirin 81 mg tablet,delayed release (DR/EC) 81 mg PO DAILY Patient Comments: TAKE 1 TABLET BY MOUTH ONCE DAILY folic acid 1 mg tablet 1 mg PO DAILY Patient Comments: TAKE 2 TABLETS BY MOUTH ONCE DAILY bupropion HCl 300 mg tablet extended release 24 hr 300 mg PO DAILY Patient Comments: TAKE 1 TABLET BY MOUTH ONCE DAILY Changed carvedilol 3.125 mg tablet 6.25 mg PO DAILY Qty: 1 0RF Patient Comments: TAKE 1 TABLET BY MOUTH TWICE DAILY Rx Instructions: Reduce carvedilol to 6.25 mg twice a day Held hydroxyurea 500 mg capsule 500 mg PO DAILY Hold Instructions: Discussed resuming this medication with your oncologist Referrals / Follow Up: Brien Singer MD [Primary Care Provider] - Within 2 Weeks Disposition Disposition (needs filled in before D/C Order can be placed): Home, Self Care 08/03/24 0938<Electronically signed by Brien Cunha DO>Brien Cunha DO CC: Dr. Jasper Morrison DO; Dr. Brien Singer MD ~ Signed [facility] Work Phone: Discharge summary Author Erick Monsivais [facility] Note Date/Time November 06, 2024 4:54pm [facility] Medical Records Department [address] [place] [address] Emergency Department Summary 11/06/24 MR#: [id number] Acct: [id number] Name: HUSAM BARROW Rep #:[id number] : 1950 74 From: Erick Teresa PCP: Dr. Brien Singer MD Status:AD M IN Location: [place] [address] HPI History of Present Illness Chief Complaint: Dizziness Informant: patient Onset/Context/Timing Onset: Today Context: Gradual Onset Timing: Continuous Quality: Off balance Location: Generalized Worsened by: Activity, movement Relieved by: Laying down Narrative Narrative: Patient presents with dizziness that began today. Patient states that it was gradual gotten worse. Patient states he feels like he is off balance. Patient states that it is worse with any movement or activity. Patient states it is better when he is able to lay down. Patient admits to some nausea and vomiting. Patient denies any headaches. Patient denies any hearing changes or tinnitus. Patient denies any visual changes. Patient denies any chest pain or shortness of breath. Patient has had a recent cough. [facility] Medical History Other abnormal clinical finding Fatigue Generalized weakness Adverse drug reaction Symptomatic bradycardia Generalized weakness Syncope and collapse High platelet count CAD (coronary artery disease) Hypertension Angina of effort Home Medications ?Medication ?Instructions ?Recorded ?Last Taken ?Type diltiazem HCl 180 mg 1 cap PO DAILY Check with pr imary 11/28/19 11/06/24 History capsule,extended release 24 hr doctor aspirin 81 mg tablet,delayed 81 mg PO DAILY 06/24/22 0 11/06/24 History release atorvastatin 40 mg tablet 20 mg PO DAILY 06/24/2210/14 History bupropion HCl 300 mg 24 hr tablet, 300 mg PO DAILY 11/06/24 History extended release folic acid 1 mg tablet 2 mg PO DAILY 06/24/2211/06 History losartan 50 mg tablet 25 mg PO DAILY 06/24/2210/14 History carvedilol 3.125 mg tablet 6.25 mg (2 x 3.125 mg) PO D AILY #1 08/03/24 11/06/24 Rx TAB hydroxyurea 500 mg capsule 500 mg PO DAILY 08/03/24 History Allergy/AdvReac Type Severity Reaction Status Date / Time No Known Allergies Allergy Verified 11/06/24 09:30 Surgical History S/P ORIF (open reduction internal fixation) fracture Social History Smoking Status: Never smoker ROS ROS ED Constitutional Constitutional ED: Denies chills or fever(s) Eyes Eyes: Denies blurry vision or change in vision ENT ENT ED: Denies ear pain, rhinorrhea or sore throat Cardiovascular Cardiovascular: Denies chest pain or palpitations Respiratory/Chest Respiratory/Chest: Reports cough; Denies dyspnea Gastrointestinal Gastrointestinal: Reports nausea and vomiting Genitourinary Genitourinary ED: Denies dysuria or hematuria Musculoskeletal Musculoskeletal: Denies back pain or neck pain Integumentary Denies abscess or rash Neurologic Neurologic: Denies headache(s) or weakness Allergic/Immunologic Allergic/Immunologic ED: Denies mouth swelling or urticaria EXAM Physical Exam Const Vital Signs: 11/06/24 09:25 11/06/24 10:05 11/06/24 11:25 Temperature 98 F Temperature Source Oral Pulse Rate 57 L 57 L Pulse Rate [Lying] 57 L Pulse Rate [Sitting (for 1 minute prior to obtaining)] 61 Pulse Rate [Standing (for 1 minute prior to obtaining)] 61 Respiratory Rate 9 L 18 Blood Pressure 82/47 L 126/84 H Blood Pressure [Lying] 102/68 Blood Pressure [Sitting (for 1 minute prior to obtaining)] 111/70 Blood Pressure [Standing (for 1 minute prior to obtaining)] 91/75 Blood Pressure Mean 58 98 Blood Pressure Mean [Lying] 79 Blood Pressure Mean [Sitting (for 1 minute prior to obtaining)] 83 Blood Pressure Mean [Standing (for 1 minute prior to obtaining)] 80 Pulse Ox 97 97 Oxygen Delivery Method Room Air Room Air Positive well nourished and well developed General Appearance ED: well developed and NAD HEENT Reports moist mucous membranes Negative for trauma Eyes PERRL and EOMs intact bilaterally Eyes Narrative: There is mild nystagmus with right lateral gaze. Neck supple and no JVD Resp normal respiratory effort and clear to auscultation bilaterally Cardio regular rate and regular rhythm GI non-tender and non-distended Palpation: soft Extremity normal to inspection General Extremety ED: Negative for edema or tenderness General Extremity: Negative for edema Neuro oriented x3, CN's II-XII intact bilaterally and no sensory deficits noted Sensorium / Orientation: alert Motor Exam: strength 5/5 throughout Psych mental status grossly normal MDM MDM MDM Narrative Medical decision making narrative: Differential diagnosis includes vertigo, labyrinthitis, dehydration, electrolyteabnormality, cardiac dysrhythmia, cardiac ischemia, intracranial bleeding, stroke, urinary tract infection, sepsis, pneumonia, bronchitis, and viral illness. EKG will be obtained to assess for cardiac dysrhythmia and cardiac ischemia. CT scan of the brain will be obtained to assess for intracranial bleeding and stroke. Chest x-ray will be obtained to assess for pneumonia or bronchitis. CBC will be obtained to assess for leukocytosis and anemia. Basic metabolic profile will be obtained to assess for electrolyte abnormality and renal function. High-sensitivity troponin will be obtained to assess for cardiac ischemia. 2-hour repeat high-sensitivity troponin will be obtained to assess for ongoing cardiac ischemia. Serum lactate will be obtained to assess for sepsis. Urinalysis will be obtained to assess for urinary tract infection and hematuria. COVID-19, influenza, and RSV PCR will be obtained to assess for viral illness. Orthostatic vital signs will be obtained to assess for dehydration and hypovolemia. History & Record Review Additional record(s) reviewed:: Prior inpatient record, Prior ED visit and Priorlabs Lab Data Attestation: I reviewed the patient's lab results. Lab results narrative: CBC was reviewed. There is a mild leukocytosis of 11.1. Hemoglobin was slightly low at 12.0 and hematocrit was 35.9. Basic metabolic profile was reviewed. CO2 was slightly low at 18 and anion gap was slightly elevated at 16. The remainder is within normal limits. Serum lactate was reviewed and was normal at 1.0. Initial high-sensitivity troponin was reviewed and was elevated at 309. Urinalysis was reviewed. There is no evidence of urinary tract infection or hematuria. Labs: Laboratory Results - last 24 hr 11/05/24 11/06/24 11/06/24 16:12 09:32 09:43 WBC 11.1 H RBC 3.22 L Hgb 12.0 L Hct 35.9 L MCV 111.5 H MCH 37.3 H MCHC 33.4 RDW Std Deviation 63.5 H RDW Coeff of Christian 15.4 H Plt Count 406 MPV 9.6 Immature Gran % (Auto) 0.700 Neut % (Auto) 71.1 H Lymph % (Auto) 9.4 L [place] % (Auto) 13.8 H Eos % (Auto) 4.6 Baso % (Auto) 0.4 Absolute Neuts (auto) 7.9 H Absolute Lymphs (auto) 1.04 Nucleated RBC % 0 Sodium 136 Potassium 4.5 Chloride 103 Carbon Dioxide 18.0 L Anion Gap 16 H BUN 19 Creatinine 1.19 Estim Creat Clear Calc 56.25 Est GFR (MDRD) Non-Af 63 BUN/Creatinine Ratio 16.3 Glucose 101 H Hemoglobin A1c 5.5 Lactic Acid Calcium 8.2 Troponin T High Sens 309 H* D Troponin T Hi Sens 2 Hr Urine Color Urine Clarity Urine pH Ur Specific Ignacio Urine Protein Urine Glucose (UA) Urine Ketones Urine Occult Blood Urine Nitrite Urine Bilirubin Urine Urobilinogen Ur Leukocyte Esterase Urine RBC Urine WBC Ur Squamous Epith Cells Urine Bacteria Urine Mucus Hepatitis C Antibody Cancelled 11/06/24 11/06/24 11/06/24 10:00 10:17 11:25 WBC RBC Hgb Hct MCV MCH MCHC RDW Std Deviation RDW Coeff of Christian Plt Count MPV Immature Gran % (Auto) Neut % (Auto) Lymph % (Auto) [place] % (Auto) Eos % (Auto) Baso % (Auto) Absolute Neuts (auto) Absolute Lymphs (auto) Nucleated RBC % Sodium Potassium Chloride Carbon Dioxide Anion Gap BUN Creatinine Estim Creat Clear Calc Est GFR (MDRD) Non-Af BUN/Creatinine Ratio Glucose Hemoglobin A1c Lactic Acid 1.0 Calcium Troponin T High Sens Troponin T Hi Sens 2 Hr 281 H* Urine Color Yellow Urine Clarity Clear Urine pH 6.0 Ur Specific Ignacio 1.015 Urine Protein 15 H Urine Glucose (UA) Normal Urine Ketones Negative Urine Occult Blood 10 H Urine Nitrite Negative Urine Bilirubin Negative Urine Urobilinogen Normal Ur Leukocyte Esterase Negative Urine RBC 0 SEEN Urine WBC 0 SEEN Ur Squamous Epith Cells 0 SEEN Urine Bacteria 1+ Urine Mucus 0 SEEN Hepatitis C Antibody Radiography Chest X-Ray - ED: 1 View, Read by ED Physician, Read by Radiologist and No AcuteDisease Diagnostic Testing: Clinical Impression(s) from Imaging Studies Brain CT 11/06/24 09:43 IMPRESSION: No acute intracranial abnormalities. Reading Location: [facility] Chest X-Ray 11/06/24 09:54 IMPRESSION: The cardiomediastinal silhouette is stable, with a tortuous aorta noted. No evidence of cardiomegaly. 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 Minimal areas of linear scarring or discoid atelectasis are seen in the right lower lung. Lungs otherwise appear clear of acute disease. No pleural effusion or pneumothorax is noted. No interval osseous change is seen. Reading Location: [id number] CT scan of the brain was obtained. There is no acute intracranial abnormality. This was interpreted by the radiologist and was also independently reviewed by myself. Portable 1 view chest x-ray was obtained. On my independent interpretation, lung segal shows areas of atelectasis in the right lower lobe. There is normalcardiac silhouette. Bony thorax is normal. There is no acute process noted. Radiologist also interpreted the x-ray and agrees. EKG Initial EKG: Attestation: I personally reviewed and interpreted this EKG as follows: Interpretation: Sinus Bradycardia (56), RBBB and S-T Depression (V2, V3) Comments: EKG was obtained. On my independent interpretation, shows a sinus bradycardia with a rate of 56. ME interval was normal at 160 ms. QRS interval was slightly prolonged at 130 ms. QTc interval was normal at 428 ms. [place] was normal. There is right bundle branch block pattern noted. There is mild ST depression in leads V2 and V3. Prior EKG tracings: available for review Prior: Changed (The ST depression in leads V2 is new compared to previous EKG dated 08/03/2024.) Management Discussion w/another healthcare provider: Hospitalist (Dr. Mcbride) and [employer] (Dr. Garrett) Treatment and Re-Evaluation :: Patient was given IV fluids. Patient was given a dose of meclizine. Patient was given aspirin. Orthostatic vital signs were obtained and were essentially within normal limits. Case was discussed with Dr. Garrett. He recommended starting the patient on heparin. He recommended admission to the hospital for possible heart catheterization. Patient understands and is agreeable with the plan. All questions were answered. Case was discussed with the hospitalist. She will admit the patient to her service. Critical Care Time Critical Care Time: Yes Critical care time (excluding procedures): 30-74 minutes (34), Including time spent:, Discussing w/Patient &/or Family/Litigation Examiner, Discussing w/Consultants, Arranging Admission or Transfer and Performing Direct Patient Care at Bedside Discharge Plan Dx/Rx/DC Orders Clinical Impression: Non-STEMI (non-ST elevated myocardial infarction), Hypertension, CAD (coronary artery disease) Disposition Disposition: Acute Care Hospital [facility] Discharge Date/Time: 11/06/24 12:55 What to do if you have Problems For any increased pain, shortness of breath, bleeding, nausea or vomiting, chestpain, or any unexpected problems, contact your Primary Care Provider. Call [facility] ([phone]) or report to the closest Emergency Room. Call 911 if necessary. 11/06/24 6098 <Electronically signed by Erick Monsivais DO> Cosigner Signature (if applicable): CC: Dr. Brien Singer MD ~ Signed [facility] Work Phone: Discharge summary Author Scott Gunn [facility] Note Date/Time November 07, 2024 11:18am [facility] Medical Records Department [address] [place] [address] Instructions for Home/Discharge Instructions 11/07/24 1109 MR#: [id number] Acct: [id number] Name: HUSAM BARROW Rep #:[id number] : 1950 74 From: Scott Mcintyre PCP: Dr. Brien Singer MD Status:AD M IN Discharge Instructions DC O2, CPAP, BIPAP needs Home O2 Discharge instructions: No Dressing / Incision Discharge Activity: Return to Normal Activity Weight Bearing Status: Weight bearing as tolerated Dressing / Incision Call your doctor if you observe: Fever of 101 or Higher, Coldness, Increased Pain, Numbness or Tingling, Change in Color, Inability to urinate, Inability to have a bowel movement, Shortness of breath, Dizziness, Fainting spells, Swellingin the ankles, Chest pain, Prolonged hiccupping, Increased palpitations (irregular heartbeat) and Calf discomfort Follow Up Care When: IN 2 WEEKS Test Results: Test results from this visit will be discussed in further detail at your follow- up appointment, if applicable. Discharge Plan Admission Admit Date/Time: 11/06/24 11:35 Attending Provider: Scott Gunn Primary Care Provider: Brien Singer Consulting Providers: Lance Garrett; Katty Mcbride Discharge Orders/Prescriptions Prescriptions: New atorvastatin 80 mg Tablet 80 mg PO QHS 30 Days Qty: 30 2RF carvedilol 6.25 mg Tablet 6.25 mg PO BIDCM 30 Days Qty: 60 2RF Continued diltiazem HCl 180 MG capsule,extended release 24hr 1 cap PO DAILY Patient Comments: TAKE 1 CAPSULE BY MOUTH ONCE DAILY losartan 50 mg tablet 25 mg PO DAILY Patient Comments: TAKE 1 TABLET BY MOUTH ONCE DAILY aspirin 81 mg tablet,delayed release (DR/EC) 81 mg PO DAILY Patient Comments: TAKE 1 TABLET BY MOUTH ONCE DAILY folic acid 1 mg tablet 2 mg PO DAILY Patient Comments: TAKE 2 TABLETS BY MOUTH ONCE DAILY bupropion HCl 300 mg tablet extended release 24 hr 300 mg PO DAILY Patient Comments: TAKE 1 TABLET BY MOUTH ONCE DAILY hydroxyurea 500 mg capsule 500 mg PO DAILY Discontinued atorvastatin 40 mg tablet 20 mg PO DAILY Patient Comments: TAKE 1 TABLET BY MOUTH ONCE DAILY AT BEDTIME carvedilol 3.125 mg tablet 6.25 mg PO DAILY Qty: 1 0RF Patient Comments: TAKE 1 TABLET BY MOUTH TWICE DAILY Rx Instructions: Reduce carvedilol to 6.25 mg twice a day Referrals / Follow Up: Brien Singer MD [Primary Care Provider, Family Practice] Lance Garrett MD [Med Staff - Active Staff, Cardiology] - Within 3 Months Referral Note: Follow up limited ECHO in 6 weeks Nellie Mcknight, PA [Med Staff - Adv Practice Prof, Cardiology] Carlos Manuel Sanders PA [Med Staff - Adv Practice Prof, Cardiology] - Within 1 Month Disposition Disposition (needs filled in before D/C Order can be placed): Home, Self Care 11/07/24 1118<Electronically signed by Scott Gunn MD>Scott Gunn MD CC: Dr. Katty Mcbride DO; Dr. Brien Singer MD; Dr. Lance Garrett MD ~ Signed [facility] Work Phone: Discharge summary Author Scott Gunn [facility] Note Date/Time November 07, 2024 11:23am [facility] Medical Records Department [address] [place] [id number] Discharge Summary 11/07/248 MR#: [id number] Acct: [id number] Name: HUSAM BARROW Rep #:[id number] : 1950 74 From: Scott Mcintyre PCP: Dr. Brien Singer MD Status:AD M IN Location: [facility] [id number] Providers Date of Admission: 11/06/24 Date of Discharge: 11/07/24 Primary Care Physician: Dr. Brien Singer MD Consultations 11/06/24 13:57 Consult: Cardiology Routine Consulting Provider: Lance Garrett Reason for Consult: Chest Pain EMERGENT Consult: No MD Notified: Yes Date Notified: 11/06/24 Time Notified: 11:36 Method of Notification: ED Physician Initiated Reason For Visit: NSTEMI Diagnosis Discharge Diagnosis (1) Non-STEMI (non-ST elevated myocardial infarction): Status: Acute Code(s): I21.4 - Non-ST elevation (NSTEMI) myocardial infarction (2) CAD (coronary artery disease): Status: Acute Code(s): I25.10 - Atherosclerotic heart disease of [place] coronary artery without angina pectoris (3) Leukocytosis: Status: Acute Code(s): D72.829 - Elevated white blood cell count, unspecified (4) Disequilibrium: Status: Acute Code(s): R42 - Dizziness and giddiness Plan NSTEMI - Cardiac catheterization is relatively despite EKG changes and troponin elevation - Cath with 10% proximal LAD stenosis and 30 to 40% mid RCA stenosis--> medical therapy is recommended - Echocardiogram reported mild MR mild TR, EF 60% with stage I diastolic dysfunction suggestive of mild chronic HFpEF. Moderate RV systolic dysfunction,normal RV size. - Continue aspirin - Home dose of atorvastatin 40 mg daily increased to 80 mg daily and new prescription was given. A1c 5.5%. -Lipid panel in normal limit except low HDL 29. Atorvastatin 40 (to 80 mg. Newprescription given. ESR elevated 63. CRP 71.7. Acute Fast reactants are elevated. Advised follow-up with cryogenic transport driver with nurse practitioner, Carlos Manuel in 4 weeks and repeat limited echo in 6 weeks. Follow with cryogenic transport driver Dr. Lance Mederos 2 months after echo. Patient lives in [place] for 5 months and 7 months in [place]. He has cryogenic transport driver here but none here. Does not follow cardiology here. 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 Discharge follow-up instructions completed. Discharge process discussed with the patient and all questions wereanswered to patient's satisfaction. Follow with PCP in 1 to 2 weeks Total time spent, exact 35 minutes on discharge meds reconciliation, examination, coordination of care with nurses and ancillary staff, review of imaging and blood test and discussion with the patient on follow-up instructions. Echo 11/06/2024 Interpretation Summary LV apical and mid cavitary false tendons. Suspect apical thinning. Basal inferior hypokinesis. Overall LVEF 60%. Stage I diastolic dysfunction. Normal RV size. Moderate RV systolic dysfunction. The left atrium is moderately enlarged. The right atrium is mildly enlarged. Mild (1+) mitral valve insufficiency. Mild (1+) tricuspid valve insufficiency. Mildly thickened aortic valve leaflets. Mild aortic valve stenosis. Mean peak gradient 11 mmHg. The study was technically difficult. Recommend cardiac MRI for further evaluation of the LV apex. Medications at Discharge Home Medications diltiazem HCl 180 mg capsule,extended release 24 hr 1 cap PO DAILY Check with primary doctor 11/28/19 aspirin 81 mg tablet,delayed release 81 mg PO DAILY 06/24/22 bupropion HCl 300 mg 24 hr tablet, extended release 300 mg PO DAILY 06/24/22 folic acid 1 mg tablet 2 mg PO DAILY 06/24/22 losartan 50 mg tablet 25 mg PO DAILY 06/24/22 hydroxyurea 500 mg capsule 500 mg PO DAILY 08/03/24 atorvastatin 80 mg tablet 80 mg PO QHS 30 days #30 tabs 11/07/24 carvedilol 6.25 mg tablet 6.25 mg PO BIDCM 30 days #60 tabs 11/07/24 Physical Exam Narrative Seen and examined. Nausea, dizziness and discogram has resolved. Blood pressure is better. Had orthostatic/low BP when he came to ED. No chest pain systolic murmur Physical exam General: Alert, Oriented x3, Cooperative HEENT: Atraumatic, PERRLA, EOMI, Normocephalic. Oral: No Gingival or Mucosal Lesions/ Ulcerations Neck: Supple, No JVD, Negative Carotid Bruits Chest wall/Lungs: Air entry equal in bilateral lung bases. No crepitation/rhonchi Cardiovascular: Regular rate and rhythm, Normal S1,S2, Abdomen: Bowel Sounds Present, Soft, Non Tender, Non-Distended : No dysuria. No renal angle tenderness. No suprapubic tenderness. Extremities: No edema, Capillary Refill Less than 3 Seconds Skin: No rashes, No breakdown Musculoskeletal: No Tenderness to Palpation of Joints or Extremities Neurological: Cranial nerves II-XII grossly intact, DTR 2+/4. No acute focal neurological deficit. Psych/Mental Status: Normal Affect, Appropriate. Weight / BMI Weight Weight: 187 lb 13.341 oz Body Mass Index (BMI) 26.2 ABG / Lab / Microbiology Data 11/07/24 05:15 11/07/24 05:15 Laboratory: Laboratory Results - last 24 hr 11/05/24 16:12: Hepatitis C Antibody Cancelled 11/06/24 09:32: ESR 63 H 11/06/24 09:43: Hemoglobin A1c 5.5 11/06/24 11:25: Troponin T Hi Sens 2 Hr 281 H* 11/06/24 11:35: PT 17.0 H, INR 1.4, APTT > 200.0 H* 11/06/24 13:50: D-Dimer Quant (PE/DVT) 0.97 H* 11/06/24 14:13: Troponin T Hi Sens 4Hr 300 H*, C-React Prot Ext Range 71.70 H 11/07/24 05:15: WBC 10.5, RBC 3.12 L, Hgb 11.7 L, Hct 34.0 L, MCV 109.0 H, MCH 37.5 H, MCHC 34.4, RDW Std Deviation 61.1 H, RDW Coeff of Christian 15.3 H, Plt Count 386, MPV 9.3, Immature Gran % (Auto) 0.500, Neut % (Auto) 70.2 H, Lymph % (Auto)11.4 L, Horry % (Auto) 13.0 H, Eos % (Auto) 4.5, Baso % (Auto) 0.4, Absolute Neuts (auto) 7.3, Absolute Lymphs (auto) 1.19, Nucleated RBC % 0, D-Dimer Quant (PE/DVT) 1.27 H*, Sodium 136, Potassium 4.1, Chloride 105, Carbon Dioxide 21.4, Anion Gap 9, BUN 15, Creatinine 1.00, Estim Creat Clear Calc 66.93, Est GFR (MDRD) Non-Af 78, BUN/Creatinine Ratio 14.9, Glucose 96, Calcium 8.2, Phosphorus3.0, Magnesium 2.2, Total Bilirubin 0.53, AST 47 H, ALT 38, Alkaline [id number], Total Protein 5.9, Albumin 3.0 L, Globulin 2.8, Albumin/Globulin Ratio 1.1,Triglycerides 87, Cholesterol 96, LDL Cholesterol, Calc 50, VLDL Cholesterol 17,HDL Cholesterol 29 L, Cholesterol/HDL Ratio 3.29, TSH 1.470 Microbiology: Microbiology 11/06/24 10:00 Mucosa - Nose SARS-CoV-2, Influenza & RSV (PCR) - Final Radiography Diagnostic Testing: Radiology Impression Echocardiogram 11/06/24 13:57 Interpretation Summary LV apical and mid cavitary false tendons. Suspect apical thinning. Basal inferior hypokinesis. Overall LVEF 60%. Stage I diastolic dysfunction. Normal RV size. Moderate RV systolic dysfunction. The left atrium is moderately enlarged. The right atrium is mildly enlarged. Mild (1+) mitral valve insufficiency. Mild (1+) tricuspid valve insufficiency. Mildly thickened aortic valve leaflets. Mild aortic valve stenosis. Mean peak gradient 11 mmHg. The study was technically difficult. Recommend cardiac MRI for further evaluation of the LV apex. Ordering Physician: Katty Mcbride Referring Physician: Brien Singer Performed By: Abbi Amador, HOLLY, RVT D/C Instructions Weight Bearing Status: Weight bearing as tolerated Call your doctor if you observe: Fever of 101 or Higher, Coldness, Increased Pain, Numbness or Tingling, Change in Color, Inability to urinate, Inability to have a bowel movement, Shortness of breath, Dizziness, Fainting spells, Swellingin the ankles, Chest pain, Prolonged hiccupping, Increased palpitations (irregular heartbeat) and Calf discomfort DC O2, CPAP, BIPAP Needs Home O2 Discharge instructions: No When: IN 2 WEEKS Meaningful Use Info Meaningful Use Meaningful Use Diagnoses (Choose all that apply): None applicable and AMI AMI/Post PCI/Angioplasty Aspirin given w/in 24hrs of arrival?: Yes ASA at discharge?: Yes Statins at discharge?: Yes Ranjeet/ARB at discharge?: Yes Beta Josue at discharge?: Yes Done w/ Acute AK measure.: Yes Discharge Plan Admission Admit Date/Time: 11/06/24 11:35 Attending Provider: Scott Gunn Primary Care Provider: Brien Singer Consulting Providers: Lance Garrett; Katty Mcbride Discharge Orders/Prescriptions Prescriptions: New atorvastatin 80 mg Tablet 80 mg PO QHS 30 Days Qty: 30 2RF carvedilol 6.25 mg Tablet 6.25 mg PO BIDCM 30 Days Qty: 60 2RF Continued diltiazem HCl 180 MG capsule,extended release 24hr 1 cap PO DAILY Patient Comments: TAKE 1 CAPSULE BY MOUTH ONCE DAILY losartan 50 mg tablet 25 mg PO DAILY Patient Comments: TAKE 1 TABLET BY MOUTH ONCE DAILY aspirin 81 mg tablet,delayed release (DR/EC) 81 mg PO DAILY Patient Comments: TAKE 1 TABLET BY MOUTH ONCE DAILY folic acid 1 mg tablet 2 mg PO DAILY Patient Comments: TAKE 2 TABLETS BY MOUTH ONCE DAILY bupropion HCl 300 mg tablet extended release 24 hr 300 mg PO DAILY Patient Comments: TAKE 1 TABLET BY MOUTH ONCE DAILY hydroxyurea 500 mg capsule 500 mg PO DAILY Discontinued atorvastatin 40 mg tablet 20 mg PO DAILY Patient Comments: TAKE 1 TABLET BY MOUTH ONCE DAILY AT BEDTIME carvedilol 3.125 mg tablet 6.25 mg PO DAILY Qty: 1 0RF Patient Comments: TAKE 1 TABLET BY MOUTH TWICE DAILY Rx Instructions: Reduce carvedilol to 6.25 mg twice a day Referrals / Follow Up: Brien Singer MD [Primary Care Provider, Family Practice] Lance Garrett MD [Med Staff - Active Staff, Cardiology] - Within 3 Months Referral Note: Follow up limited ECHO in 6 weeks Nellie Mcknight, PA [Med Staff - Adv Practice Prof, Cardiology] Carlos Manuel Sanders PA [Med Staff - Adv Practice Prof, Cardiology] - Within 1 Month Disposition Disposition (needs filled in before D/C Order can be placed): Home, Self Care Charges/Coding Visit Charges Inpatient E&M: 72916 Disch Hosp >30min 11/07/24 1123 <Electronically signed by Scott Gunn MD> Cosigner Signature (if applicable): CC: Dr. Brien Singer MD; Dr. Lance Garrett MD; Dr. Scott Gunn MD~ Signed [facility] Work Phone: Evaluation note* Diagnosis Mixed hyperlipidemia- Primary Coronary artery spasm (HCC) Other and unspecified angina pectoris [facility] [place] [facility] Diagnosis Essential hypertension- Primary Unspecified essential hypertension Mixed hyperlipidemia Coronary artery spasm (HCC) Other and unspecified angina pectoris MATUTE (dyspnea on exertion) Other dyspnea and respiratory abnormality Nonischemic cardiomyopathy (HCC) Other primary cardiomyopathies [facility] Diagnosis Mixed hyperlipidemia- Primary Chewing tobacco use Tobacco use disorder Coronary artery spasm (HCC) Other and unspecified angina pectoris Need for influenza vaccination Need for prophylactic vaccination and inoculation against influenza Essential hypertension Unspecified essential hypertension MATUTE (dyspnea on exertion) Other dyspnea and respiratory abnormality [facility] Diagnosis Nonischemic cardiomyopathy (HCC)- Primary Other primary cardiomyopathies Screening for colon cancer Special screening for malignant neoplasms, colon Mixed hyperlipidemia Chewing tobacco use Tobacco use disorder Anxiety with depression [facility] [place] noteNo assessment information [facility]WAs[facility] Work Phone: Evaluation note* Diagnosis Black stool- Primary Nonspecific abnormal finding in stool contents [facility] [place] [facility]* Diagnosis Essential hypertension- Primary Unspecified essential hypertension Mixed hyperlipidemia Anxiety with depression Coronary artery spasm (HCC) Other and unspecified angina pectoris Nonischemic cardiomyopathy (HCC) Other primary cardiomyopathies Elevated liver enzymes Other nonspecific abnormal serum enzyme levels [facility] Diagnosis Dark stools Nonspecific abnormal finding in stool contents Blood in stool [facility] Diagnosis Nonischemic cardiomyopathy (HCC)- Primary Other primary cardiomyopathies Anxiety with depression Coronary artery spasm (HCC) Other and unspecified angina pectoris Mixed hyperlipidemia [facility] Diagnosis Acute cough [facility] Diagnosis Mixed hyperlipidemia- Primary Anxiety with depression Nonischemic cardiomyopathy (HCC) Other primary cardiomyopathies Coronary artery spasm (HCC) Other and unspecified angina pectoris Mild intermittent asthma without complication Unspecified asthma Thrombocytosis Essential thrombocythemia [facility] Diagnosis Thrombocytosis- Primary Essential thrombocythemia [facility] [place] [facility]* Diagnosis Acute cough- Primary [facility] Diagnosis Thrombocytosis- Primary Essential thrombocythemia Elevated platelet count Essential thrombocythemia Leukocytosis, unspecified type [facility] Diagnosis Nonischemic cardiomyopathy (HCC)- Primary Other primary cardiomyopathies Anxiety with depression Leukocytosis, unspecified type Thrombocytosis Essential thrombocythemia Mixed hyperlipidemia Stage 3a chronic kidney disease (HCC) Folate deficiency Other B-complex deficiencies Heart murmur Undiagnosed cardiac murmurs [facility] Diagnosis Essential thrombocytosis (HCC)- Primary Essential thrombocythemia Myelofibrosis (HCC) Myelofibrosis Thrombocytosis Essential thrombocythemia [facility] Diagnosis Essential thrombocytosis (HCC) Essential thrombocythemia [facility] Diagnosis Essential thrombocytosis (HCC) Essential thrombocythemia [facility] Diagnosis Essential thrombocytosis (HCC) Essential thrombocythemia [facility] Diagnosis Essential thrombocytosis (HCC)- Primary Essential thrombocythemia [facility] Author Katty Mcbride [facility] Note Date/Time November 06, 2024 4:54pm [facility] Medical Records Department [address] [place] [id number] H&P Exam - Hospitalist 11/06/24 1141 MR#: [id number] Acct: [id number] Name: HUSAM BARROW Rep #:[id number] : 1950 74 From: Katty Mcbride DO PCP: Dr. Brien Singer MD Status:AD M IN Location: [facility] [id number] HPI - General General Date of Admission: 11/06/24 Date of Service: 11/06/24 Chief Complaint: Lightheadedness HPI Narrative HUSAM BARROW, is a 74 M who presented to the emergency department at [facility] on 11/06/2024 after an episode of lightheadedness/disequilibrium and emesis. Patient's never had anything quite this significant previously. He stated he had episode that was very mild and hepresented to the emergency department in July at that time it was felt to be an adverse drug reaction. He stated he had some very mild sensation of being off balance when he got out of bed in the morning and then went to a wedding. Afterthe service he was walking out and symptoms got very severe he had an episode ofemesis and then was brought to the emergency department. He had no associated diaphoresis or shortness of breath. He denied any chest pain. He denied any tingling, numbness, weakness anywhere. He had no changes in his bowels and there was no blood in his vomitus. Vital signs on presentation showed a temperature of 98, heart rate 57, respiratory rate was 18, blood pressure initially was 82/47 but repeat after fluids was 126/84, orthostatic vitals were unremarkable, pulse ox was 97% on room air. CBC showed a mild white count elevation of 11.1 with a hemoglobin of 12.0 which appears to be consistent with his baseline. He had a very mild left shift with a 71.1% neutrophilia. He also had a monocytosis at 13.8% which appears to be chronic as well. Chemistry panel showed slightly serum anion gap at 16 with a bicarb of 18. Serum creatinine was normal. Glucose was 101 with ahemoglobin A1c of 5.5. Lactic acid was normal at 1.0. Initial troponin was 309with a delta of 281-/4 troponin at 300. UA is not suggestive of infection. EKG showed some new ST depression and a chronic right bundle branch block in theanterior septal leads when compared with previous EKG from July 2024. Given histroponin elevation, symptoms, and EKG changes cardiology recommended urgent cardiac catheterization. He was taken for cardiac catheterization and was foundto have a 10% proximal LAD lesion and a 30 to 40% mid RCA lesion. Medical therapy was recommended. I followed up with the patient after cardiac catheterization. He states his disequilibrium had resolved. He denied any chest pain, shortness of breath, diaphoresis, nausea or vomiting and stated he felt well and wanted to go home. [facility] Medical History Other abnormal clinical finding Fatigue Generalized weakness Adverse drug reaction Symptomatic bradycardia Generalized weakness Syncope and collapse High platelet count CAD (coronary artery disease) Hypertension Angina of effort Home Medications ?Medication ?Instructions ?Recorded ?Last Taken ?Type diltiazem HCl 180 mg 1 cap PO DAILY Check with pr imary 11/28/19 11/06/24 History capsule,extended release 24 hr doctor aspirin 81 mg tablet,delayed 81 mg PO DAILY 06/24/22 0 11/06/24 History release atorvastatin 40 mg tablet 20 mg PO DAILY 06/24/2210/14 History bupropion HCl 300 mg 24 hr tablet, 300 mg PO DAILY 11/06/24 History extended release folic acid 1 mg tablet 2 mg PO DAILY 06/24/2211/06 History losartan 50 mg tablet 25 mg PO DAILY 06/24/2210/14 History carvedilol 3.125 mg tablet 6.25 mg (2 x 3.125 mg) PO D AILY #1 08/03/24 11/06/24 Rx TAB hydroxyurea 500 mg capsule 500 mg PO DAILY 08/03/24 History Allergy/AdvReac Type Severity Reaction Status Date / Time No Known Allergies Allergy Verified 11/06/24 09:30 no significant family history Surgical History S/P ORIF (open reduction internal fixation) fracture Social History Smoking Status: Never smoker ROS Constitutional Constitutional: Denies anorexia, change in weight, chills, fatigue, fever(s), malaise, night sweats, weakness or other Eyes Eyes: Denies blurry vision, change in eye color, change in vision, discharge from eye(s), double vision, erythema, eye pain, loss of vision or other ENT HEENT: Denies abnormal hearing, dysphagia, ear pain, epistaxis, headache(s), hearing loss, nasal congestion, nasal discharge, post nasal drip, sinus pressure, sore throat or other Cardiovascular Cardiovascular: Denies chest pain, claudication, dyspnea on exertion, edema, lightheadedness, orthopnea, palpitations, paroxysmal nocturnal dyspnea, rapid heart rate, syncope or other Respiratory/Chest Respiratory/Chest: Denies cough, dyspnea, excessive phlegm production, hemoptysis, productive cough, shortness of breath at rest, shortness of breath with exertion, wheezing or other Gastrointestinal Gastrointestinal: Reports nausea and vomiting; Denies abdominal pain, coffee ground emesis, constipation, diarrhea, dyspepsia, hematemesis, hematochezia, loose stools, melena or other Genitourinary Genitourinary: Denies burning urination, difficulty urinating, dysuria, hematuria, nocturia, urinary frequency, urinary hesitancy, urinary incontinence,urinary urgency or other Musculoskeletal Musculoskeletal: Denies arthralgias, back pain, joint pain, joint stiffness, joint swelling, myalgias, neck pain or other Neurologic Neurologic: Reports disequilibrium; Denies abnormal gait, abnormal speech, confusion, dizziness, focal weakness, headache(s), numbness, paresthesias, seizure-like activity, seizures, syncope, tingling, tremor(s) or other Psychiatric Psychiatric: Denies anxiety, depression, homicidal ideation, suicidal ideation or other Endocrine Endocrinology: Denies change in body appearance, cold intolerance, excessive sweating, heat intolerance, polydipsia, polyuria or other Hematologic/Lymphatic Hematologic/Lymphatic: Denies anemia, easy bleeding, easy bruising, lymphadenopathy or other Allergic/Immunologic Allergic/Immunologic: Denies rhinitis, hives, eczemia, asthma or other Vital Signs Vital Signs Vital Signs: 11/06/24 09:25 11/06/24 10:05 11/06/24 11:25 Temperature 98 F Temperature Source Oral Pulse Rate 57 L 57 L Pulse Rate [Lying] 57 L Pulse Rate [Sitting (for 1 minute prior to obtaining)] 61 Pulse Rate [Standing (for 1 minute prior to obtaining)] 61 Respiratory Rate 9 L 18 Blood Pressure 82/47 L 126/84 H Blood Pressure [Lying] 102/68 Blood Pressure [Sitting (for 1 minute prior to obtaining)] 111/70 Blood Pressure [Standing (for 1 minute prior to obtaining)] 91/75 Blood Pressure Mean 58 98 Blood Pressure Mean [Lying] 79 Blood Pressure Mean [Sitting (for 1 minute prior to obtaining)] 83 Blood Pressure Mean [Standing (for 1 minute prior to obtaining)] 80 Pulse Ox 97 97 Oxygen Delivery Method Room Air Room Air Weight Weight: 85.9 kg Body Mass Index (BMI) 26.4 Physical Exam Const alert, oriented x3, no apparent distress, average body habitus and well nourished Constitutional Narrative: Very pleasant, elderly, white male, lying in bed, family at bedside, 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 echocardiogram, appears comfortable, nontoxic General Appearance: cooperative HEENT normocephalic, head/scalp atraumatic, hearing grossly normal bilaterally and moist oral mucous membranes HEENT Narrative: Dentition is fair for age, Mallampati is 2, no thrush Eyes conjunctivae normal Eyes Narrative: No scleral icterus Neck supple Neck Narrative: Trachea midline, no lymphadenopathy Resp normal respiratory effort, no retractions, no use of accessory muscles and clearto auscultation bilaterally Auscultation: Negative for rales, rhonchi or wheezes Cardio regular rate, regular rhythm, S1 normal heart sound, S2 normal heart sound, no murmurs, no rub, no gallops and no clicks GI normal to inspection, nondistended, normoactive bowel sounds, soft to palpation and non-tender Extremity no clubbing, cyanosis or edema Extremity Narrative: 2+ pedal pulses, right radial compression device in place postcardiac catheterization, left radial pulses 2+ Neuro moves all extremities and no focal motor deficits Speech: speech normal Psych affect normal Psych Narrative: Very pleasant, jovial, eye contact is good and patient interacts appropriately Results Lab / Micro Data 11/06/24 09:32 11/06/24 09:32 Labs: Laboratory Results - last 24 hr 11/06/24 09:32: WBC 11.1 H, RBC 3.22 L, Hgb 12.0 L, Hct 35.9 L, MCV 111.5 H, MCH37.3 H, MCHC 33.4, RDW Std Deviation 63.5 H, RDW Coeff of Christian 15.4 H, Plt Count 406, MPV 9.6, Immature Gran % (Auto) 0.700, Neut % (Auto) 71.1 H, Lymph % (Auto)9.4 L, Horry % (Auto) 13.8 H, Eos % (Auto) 4.6, Baso % (Auto) 0.4, Absolute Neuts(auto) 7.9 H, Absolute Lymphs (auto) 1.04, Nucleated RBC % 0, Sodium 136, Potassium 4.5, Chloride 103, Carbon Dioxide 18.0 L, Anion Gap 16 H, BUN 19, Creatinine 1.19, Estim Creat Clear Calc 56.25, Est GFR (MDRD) Non-Af 63, BUN/Creatinine Ratio 16.3, Glucose 101 H, Calcium 8.2, Troponin T High Sens 309 H* D 11/06/24 10:00: Lactic Acid 1.0 11/06/24 10:17: Urine Color Yellow, Urine Clarity Clear, Urine pH 6.0, Ur Specific Ignacio 1.015, Urine Protein 15 H, Urine Glucose (UA) Normal, Urine Ketones Negative, Urine Occult Blood 10 H, Urine Nitrite Negative, Urine Bilirubin Negative, Urine Urobilinogen Normal, Ur Leukocyte Esterase Negative, Urine RBC 0 SEEN, Urine WBC 0 SEEN, Ur Squamous Epith Cells 0 SEEN, Urine Bacteria 1+, Urine Mucus 0 SEEN Micro: Microbiology 11/06/24 10:00 Mucosa - Nose SARS-CoV-2, Influenza & RSV (PCR) - Final Rhythm Strip Rhythm Strip: Sinus Rhythm Rate: 59 Imaging Radiology Impression Brain CT 11/06/24 09:43 IMPRESSION: No acute intracranial abnormalities. Reading Location: [facility] Chest X-Ray 11/06/24 09:54 IMPRESSION: The cardiomediastinal silhouette is stable, with a tortuous aorta noted. No evidence of cardiomegaly. 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 Minimal areas of linear scarring or discoid atelectasis are seen in the right lower lung. Lungs otherwise appear clear of acute disease. No pleural effusion or pneumothorax is noted. No interval osseous change is seen. Reading Location: [id number] Assessment & Plan Assessment/Plan (1) Non-STEMI (non-ST elevated myocardial infarction): (2) CAD (coronary artery disease): (3) Leukocytosis: (4) Disequilibrium: PLAN: Plan NSTEMI - Cardiac catheterization is relatively despite EKG changes and troponin elevation - Cath with 10% proximal LAD stenosis and 30 to 40% mid RCA stenosis--> medical therapy is recommended - Echocardiogram pending - Continue aspirin - Continue home statin - Check hemoglobin A1c - Check lipid panel - Per discussion with cardiology given essentially negative cardiac catheterization sed rate and CRP ordered if they are elevated myocarditis shouldbe considered and patient should be placed on goal-directed therapy with follow-up echocardiogram in 6 weeks and patient should follow-up with cardiology here prior to leaving for [place] where he goes for the winter Leukocytosis - Very mild and suspect reactive - Patient feels fine at this time - No further workup at this time - Repeat CBC in a.m. Disequilibrium - Resolved - Monitor clinically Essential hypertension/hyperlipidemia - Continue home carvedilol - Continue home losartan - Continue home diltiazem - Monitor closely as patient is on 2 rate modulating drugs and does have a documented history of symptomatic bradycardia--> currently stable Thrombocytosis - Patient on hydroxyurea for this - Ongoing outpatient follow-up as previously directed - Continue folic acid Depression - Continue home Wellbutrin DVT prophylaxis - Heparin drip discontinued - Placed on subcu Lovenox CODE STATUS - Full code verified Charges/Coding Visit Charges Inpatient E&M: 87024 Init Hosp L2 11/06/24 1656 <Electronically signed by Katty Mcbride DO> Cosigner Signature (if applicable): CC: Dr. Katty Mcbride DO; Dr. Brien Singer MD~ Signed [facility] Work Phone: Hospital Discharge instructions Additional Instructions Called to make an appointment with Dr. Fajardo and follow-up with him as soon as possible. Please return for any worsening of your symptoms.[facility] Work Phone: Hospital Discharge instructions Additional Instructions Contact your oncologist to discuss your use of hydroxyurea Date of Discharge: 08/03/24[facility] Work Phone: Hospital Discharge instructionsAdditional Instructions Date of Discharge: 11/07/24[facility] Work Phone: Hospital Discharge instructionsAmbulatory Orders* Phase II, Outpatient Cardiac Rehab Location: None [facility] Work Phone: Reason for referral (narrative)* Outpatient Procedure (Routine) - Closed Specialty Diagnoses / Procedures Referred By Contstephanie t Referred To Contact [facility] Diagnoses Dark stools Blood in stool Procedures COLONOSCOPY DIAGNOSTIC COLONOSCOPY FLX DX W/COLLJ SPEC WHEN PFRMD Wendy Yun PA-C [address] [place] [address] [facility] [address] [place] [address] Referral ID Status Reason Start Date Expiration Date Visits Re quested Visits Authorized [id number] Closed 07/04/2022 07/05/2023 1 1 * Outpatient Procedure (Routine) - Closed Specialty Diagnoses / Procedures Referred By Heather flowers Referred To Contact [facility] Diagnoses Dark stools Blood in stool Procedures EGD DIAGNOSTIC ESOPHAGOGASTRODUODENOSC OPY TRANSORAL DIAGNOSTIC Wendy Yun PA-C [address] [place] [address] [facility] [place] [address] [place] [address] Referral ID Status Reason Start Date Expiration Date Visits Re quested Visits Authorized [id number] Closed 07/04/2022 07/05/2023 1 1 [facility]No reason for referral information availableWAshtabula [facility] Work Phone: Reason for visit Narrative* Outpatient Procedure (Routine) - Closed Specialty Diagnoses / Procedures Referred By Heather flowers Referred To Contact [facility] Diagnoses Dark stools Blood in stool Procedures COLONOSCOPY DIAGNOSTIC COLONOSCOPY FLX DX W/COLLJ SPEC WHEN PFRMD Wendy Yun PA-C [address] [place] [address] [facility] [place] [address] [place] [address] Referral ID Status Reason Start Date Expiration Date Visits Re quested Visits Authorized [id number] Closed 07/04/2022 07/05/2023 1 1 [facility] Chief Complaint and Reason for Visit Chief Complaint BLACK STOOL Chief Complaint Admit Date SYNCOPE LIKELY DUE TO ADVERSE DRUG RXN T O AV-KEYON August 03, 2024 1:44am Reason for Visit Admit Date Adverse drug reaction August 03, 2024 1: 44am Fatigue August 03, 2024 1:44 am Generalized weakness August 03, 2024 1:4 4am Symptomatic bradycardia August 03, 2024 1:44am Syncope and collapse August 03, 2024 1:4 4am Chief Complaint Admit Date SYNCOPE LIKELY DUE TO ADVERSE DRUG RXN T O AV-KEYON August 03, 2024 1:44am dizziness November 06, 2024 11:31am NSTEMI November 06, 2024 11:35am NSTEMI November 06, 2024 11:41am NSTEMI November 07, 2024 11:18am Referral Order November 11, 2024 8:47am Reason for Visit Admit Date Adverse drug reaction August 03, 2024 1: 44am Fatigue August 03, 2024 1:44 am Generalized weakness August 03, 2024 1:4 4am Symptomatic bradycardia August 03, 2024 1:44am Syncope and collapse August 03, 2024 1:4 4am CAD (coronary artery disease) November 06, 2024 11:35am Disequilibrium November 06, 2024 11:35am High platelet count November 06, 2024 11:35am Leukocytosis November 06, 2024 11:35am Non-STEMI (non-ST elevated myocardial in farction) November 06, 2024 11:35am Hypertension November 06, 2024 11:35am Family History No Family History Records Found Relationship Condition Age at Onset Recorded Date/T estella Unknown Family History?- Unknown November 11:34pm Advance Directives No Advanced Directives Records Found Advance Directive Response Recorded Date/ Time Living Will No June 24, 2022 1 2:19pm Power of Field Interviewer No June 24, 2022 12:19pm Advance Directive Response Recorded Date/ Time Do you have a Healthcare Power of Field Interviewer? No August 02, 2024 11:41pm Advance Directive Response Recorded Date/ Time Do you have a Healthcare Power of Field Interviewer? No August 03, 2024 2:26am Advance Directive Response Recorded Date/ Time Do you have a Healthcare Power of Field Interviewer? Yes November 06, 2024 2:32pm Do you have a Healthcare Power of Field Interviewer? No August 03, 2024 2:26am Medications Administered Section Inactive Administered Medications - up to 3 most recent administrations Medication Order MAR Action Action Date Dose Rate Site benzocaine 20% 1 [place] (TOPEX) 1 [place], TOPICAL, DIRECTED, Starting on Rubi 07/06/22 at 1200, Until Rubi 07/06/22 at 1559, DOSING DIRECTED BY PHYSICIAN FOR PROCEDURAL SEDATION ONLY - Pharmaceutical Waste: Aerosol -, Intraprocedure Given 07/06/2022 11:34 AM EDT 5 Sprays diphenhydrAMINE 12.5-50 mg injection (BENADRYL) 12.5-50 mg, INTRAVENOUS, DIRECTED, Starting on Rubi 07/06/22 at 1200, Until Rubi 07/06/22 at 1559, DOSING DIRECTED BY PHYSICIAN FOR PROCEDURAL SEDATION ONLY, Intraprocedure Given 07/06/2022 11:39 AM EDT 50 mg fentaNYL 50 mcg/mL 25-100 mcg injection (SUBLIMAZE) 25-100 mcg, INTRAVENOUS, DIRECTED, Starting on Rubi 07/06/22 at 1200, Until Rubi 07/06/22 at 1559, DOSING DIRECTED BY PHYSICIAN FOR PROCEDURAL SEDATION ONLY, Intraprocedure Given 07/06/2022 11:36 AM EDT 50 mcg lactated ringers iv infusion 30 mL/hr, INTRAVENOUS, CONTINUOUS, Starting on Rubi 07/06/22 at 1130, Until Rubi 07/06/22 at 1210, Preprocedure New Bag/Syringe/Lara le 07/06/2022 11:22 AM EDT 30 mL/hr 30 mL/hr Hand, Right midazolam 1-5 mg injection (VERSED) 1-5 mg, INTRAVENOUS, DIRECTED, Starting on Rubi 07/06/22 at 1200, Until Rubi 07/06/22 at 1559, DOSING DIRECTED BY PHYSICIAN FOR PROCEDURAL SEDATION ONLY, Intraprocedure Given 07/06/2022 11:52 AM EDT 2 mg Given 07/06/2022 11:36 AM EDT 3 mg Reason for Referral Specialty Diagnoses / Procedures Referred By Contac t Referred To Contact Diagnoses Thrombocytosis Elevated platelet count Leukocytosis, unspecified type Procedures CONSULT TO HEMATOLOGY/ONCOLOGY Brien Singer MD [address] [place] [address] Referral ID Status Reason Start Date Expiration Date Visits Requested Visits Authorized [id number] Ref Not Required PCP Requested Referral 12/14/2023 12/13/2024 1 1 Summary Purpose Additional Source Comments Source Comments (unrecognize d section and content) In the event this informatio n is protected by the Federal Confidentiality of Alcohol and Drug Abuse Patient Records regulations: The Federal rules restrict any use of the information to criminally investigate or prosecute any alcohol or drug abuse patient.[facility] the event this information is protected by the Federal Confidentiality of Alcohol and Drug Abuse Patient Records regulations: The Federal rules restrict any use of the information to criminally investigate or prosecute any alcohol or drug abuse patient.[facility] the event this information is protected by the Federal Confidentiality of Alcohol and Drug Abuse Patient Records regulations: The Federal rules restrict any use of the information to criminally investigate or prosecute any alcohol or drug abuse patient.[facility] the event this information is protected by the Federal Confidentiality of Alcohol and Drug Abuse Patient Records regulations: The Federal rules restrict any use of the information to criminally investigate or prosecute any alcohol or drug abuse patient.[facility] the event this information is protected by the Federal Confidentiality of Alcohol and Drug Abuse Patient Records regulations: The Federal rules restrict any use of the information to criminally investigate or prosecute any alcohol or drug abuse patient.[facility] the event this information is protected by the Federal Confidentiality of Alcohol and Drug Abuse Patient Records regulations: The Federal rules restrict any use of the information to criminally investigate or prosecute any alcohol or drug abuse patient.[facility] the event this information is protected by the Federal Confidentiality of Alcohol and Drug Abuse Patient Records regulations: The Federal rules restrict any use of the information to criminally investigate or prosecute any alcohol or drug abuse patient.[facility] the event this information is protected by the Federal Confidentiality of Alcohol and Drug Abuse Patient Records regulations: The Federal rules restrict any use of the information to criminally investigate or prosecute any alcohol or drug abuse patient.[facility] the event this information is protected by the Federal Confidentiality of Alcohol and Drug Abuse Patient Records regulations: The Federal rules restrict any use of the information to criminally investigate or prosecute any alcohol or drug abuse patient.[facility] the event this information is protected by the Federal Confidentiality of Alcohol and Drug Abuse Patient Records regulations: The Federal rules restrict any use of the information to criminally investigate or prosecute any alcohol or drug abuse patient.[facility] the event this information is protected by the Federal Confidentiality of Alcohol and Drug Abuse Patient Records regulations: The Federal rules restrict any use of the information to criminally investigate or prosecute any alcohol or drug abuse patient.[facility] the event this information is protected by the Federal Confidentiality of Alcohol and Drug Abuse Patient Records regulations: The Federal rules restrict any use of the information to criminally investigate or prosecute any alcohol or drug abuse patient.[facility] the event this information is protected by the Federal Confidentiality of Alcohol and Drug Abuse Patient Records regulations: The Federal rules restrict any use of the information to criminally investigate or prosecute any alcohol or drug abuse patient.[facility] the event this information is protected by the Federal Confidentiality of Alcohol and Drug Abuse Patient Records regulations: The Federal rules restrict any use of the information to criminally investigate or prosecute any alcohol or drug abuse patient.[facility] the event this information is protected by the Federal Confidentiality of Alcohol and Drug Abuse Patient Records regulations: The Federal rules restrict any use of the information to criminally investigate or prosecute any alcohol or drug abuse patient.[facility] CenterIn the event this information is protected by the Federal Confidentiality of Alcohol and Drug Abuse Patient Records regulations: The Federal rules restrict any use of the information to criminally investigate or prosecute any alcohol or drug abuse patient.[facility] CenterIn the event this information is protected by the Federal Confidentiality of Alcohol and Drug Abuse Patient Records regulations: The Federal rules restrict any use of the information to criminally investigate or prosecute any alcohol or drug abuse patient.[facility] CenterIn the event this information is protected by the Federal Confidentiality of Alcohol and Drug Abuse Patient Records regulations: The Federal rules restrict any use of the information to criminally investigate or prosecute any alcohol or drug abuse patient.[facility] CenterIn the event this information is protected by the Federal Confidentiality of Alcohol and Drug Abuse Patient Records regulations: The Federal rules restrict any use of the information to criminally investigate or prosecute any alcohol or drug abuse patient.[facility] CenterIn the event this information is protected by the Federal Confidentiality of Alcohol and Drug Abuse Patient Records regulations: The Federal rules restrict any use of the information to criminally investigate or prosecute any alcohol or drug abuse patient.[facility] CenterIn the event this information is protected by the Federal Confidentiality of Alcohol and Drug Abuse Patient Records regulations: The Federal rules restrict any use of the information to criminally investigate or prosecute any alcohol or drug abuse patient.[facility] CenterIn the event this information is protected by the Federal Confidentiality of Alcohol and Drug Abuse Patient Records regulations: The Federal rules restrict any use of the information to criminally investigate or prosecute any alcohol or drug abuse patient.[facility] CenterIn the event this information is protected by the Federal Confidentiality of Alcohol and Drug Abuse Patient Records regulations: The Federal rules restrict any use of the information to criminally investigate or prosecute any alcohol or drug abuse patient.[facility] CenterIn the event this information is protected by the Federal Confidentiality of Alcohol and Drug Abuse Patient Records regulations: The Federal rules restrict any use of the information to criminally investigate or prosecute any alcohol or drug abuse patient.[facility] CenterIn the event this information is protected by the Federal Confidentiality of Alcohol and Drug Abuse Patient Records regulations: The Federal rules restrict any use of the information to criminally investigate or prosecute any alcohol or drug abuse patient.[facility] CenterIn the event this information is protected by the Federal Confidentiality of Alcohol and Drug Abuse Patient Records regulations: The Federal rules restrict any use of the information to criminally investigate or prosecute any alcohol or drug abuse patient.[facility] CenterIn the event this information is protected by the Federal Confidentiality of Alcohol and Drug Abuse Patient Records regulations: The Federal rules restrict any use of the information to criminally investigate or prosecute any alcohol or drug abuse patient.[facility] CenterIn the event this information is protected by the Federal Confidentiality of Alcohol and Drug Abuse Patient Records regulations: The Federal rules restrict any use of the information to criminally investigate or prosecute any alcohol or drug abuse patient.[facility] Reason for Visit (unrecogniz ed section and content) Reason Comments Lab Orders Reason Comments F/U 6 Month Reason Onset Date Comments 6 Month Exam Immunizations 11/28/2021 Flu vaccination Reason Onset Date Comments Refill Request 12/28/2021 Reason Comments 6 Month Exam Reason Comments Cough Chest congestion, he adache, tightness in chest, dry cough x 5 days Reason Comments Results Reason Comments Patient Request Reason Comments Faxed to [facility] Reason Comments 6 Month Exam Reason Comments Medication Problem Reason Comments New Patient Evaluation Specialty Diagnoses / Procedures Referred By Contac t Referred To Contact Hematology Diagnoses Thrombocytosis Procedures CONSULT TO HEMATOLOGY OFFICE/OUTPATIENT NEW HIGH [facility] 60 MINUTES Edwin Naranjo, BROOKE.BUSINESS DATA ANALYST [address] [place] [address] Phone: tel: fax: Referral ID Status Reason Start Date Expiration Date V isits Requested Visits Authorized [id number] Closed PCP Requested Referral 06/20/2024 06/20/2025 1 1 Reason Comments Results Reason Comments Appointment Reason Comments Refill Request Reason Comments Follow Up Reason Comments Patient Question Reason Comments Established Patient Care Teams (unrecognized sec tion and content) Team Status: Active Member Role Status Dates Dr. Brien Singer MD Primary Care Provider Active Team Status: Inactive Member Role Status Dates Dr. Brien Singer MD Primary Care Provider Active Start: August 03, 2024 End: August 03, 2024 Maxim Guzman MD Emergency Provider Active Star t: August 03, 2024 End: August 03, 2024 Dr. Jasper Morrison DO Admit Provider Active Start: August 03, 2024 End: August 03, 2024 Dr. Jasper Morrison DO Other Provider Active Start: August 03, 2024 End: August 03, 2024 Dr. Brien Cunha DO Attending Provider Active Start: August 03, 2024 End: August 03, 2024 Edi Programmer Analyst Relationship Specialty Start Date End Date Brien Singer MD [address] [facility] [place] [address] PCP - General Family Practice 09/03/18 Edi Programmer Analyst Relationship Specialty Start Date End Date Brien Singer MD [address] [facility] [place] [address] PCP - General Family Practice 09/03/18 Edi Programmer Analyst Relationship Specialty Start Date End Date Brien Singer MD [address] [facility] [place] [address] PCP - General Family Medicine 09/03/18 Edi Programmer Analyst Relationship Specialty Start Date End Date Brien Singer MD [address] [facility] [place] [address] PCP - General Family Medicine 09/03/18 Edi Programmer Analyst Relationship Specialty Start Date End Date Biren Singer MD [address] [facility] [place] [address] PCP - General Family Medicine 09/03/18 Team Status: Active Member Role Status Dates Dr. Jasper Rea MD Family Provider Active Dr. Brien Singer MD Primary Care Provider Active Team Status: Inactive Member Role Status Dates Dr. Brien Singer MD Primary Care Provider Active Dr. Almas Jacob DO Emergency Provider Active Edi Programmer Analyst Relationship Specialty Start Date End Date Brien Singer MD [address] [facility] [address] PCP - General Family Medicine 09/03/18 Edi Programmer Analyst Relationship Specialty Start Date End Date Brien Singer MD [address] [facility] [address] PCP - General Family Medicine 09/03/18 Edi Programmer Analyst Relationship Specialty Start Date End Date Brien Singer MD [address] [facility] [address] PCP - General Family Medicine 09/03/18 Edi Programmer Analyst Relationship Specialty Start Date End Date Brien Singer MD [address] [facility] [place] [address] PCP - General Family Medicine 09/03/18 Edi Programmer Analyst Relationship Specialty Start Date End Date Brien Singer MD [address] [facility] [place] [address] PCP - General Family Medicine 09/03/18 Edi Programmer Analyst Relationship Specialty Start Date End Date Brien Singer MD [address] [facility] [place] [address] PCP - General Family Medicine 09/03/18 Edi Programmer Analyst Relationship Specialty Start Date End Date Brien Singer MD [address] [facility] [address] PCP - General Family Medicine 09/03/18 Edi Programmer Analyst Relationship Specialty Start Date End Date Brien Singer MD [address] [facility] [place] [address] PCP - General Family Medicine 09/03/18 Edi Programmer Analyst Relationship Specialty Start Date End Date Brien Singer MD [address] [facility] [place] [address] PCP - General Family Medicine 09/03/18 Edi Programmer Analyst Relationship Specialty Start Date End Date Brien Singer MD [address] [facility] [place] [address] PCP - General Family Medicine 09/03/18 Edi Programmer Analyst Relationship Specialty Start Date End Date Brien Singer MD [address] [facility] [address] PCP - General Family Medicine 09/03/18 Edi Programmer Analyst Relationship Specialty Start Date End Date Brien Singer MD [address] [facility] [address] PCP - General Family Medicine 09/03/18 Anna Orozco APRN.BUSINESS DATA ANALYST [address] [place] [address] [employer] Family [facility] 01/20/24 Edwin Naranjo APRN.BUSINESS DATA ANALYST [address] [facility] [address] [employer] Family Medicine 01/29/24 Edi Programmer Analyst Relationship Specialty Start Date End Date Brien Singer MD [address] [facility] [address] PCP - General Family Medicine 09/03/18 Anna Orozco APRN.BUSINESS DATA ANALYST [address] [facility] [address] [employer] Family Medicine 01/20/24 Edwin Naranjo APRN.BUSINESS DATA ANALYST [address] [place] [address] [employer] [facility] 01/29/24 Edi Programmer Analyst Relationship Specialty Start Date End Date Brien Singer MD [address] [place] [address] PCP - General Family Medicine 09/03/18 Anna Orozco APRN.BUSINESS DATA ANALYST [address] [place] [address] [employer] [facility] 01/20/24 Edwin Naranjo LIVE OUT NANNY.BUSINESS DATA ANALYST [address] [place] [address] [employer] Family [facility] 01/29/24 Edi Programmer Analyst Relationship Specialty Start Date End Date Brien Singer MD [address] [place] [address] PCP - General Family Medicine 09/03/18 Edwin Naranjo LIVE OUT NANNY.BUSINESS DATA ANALYST [address] [place] [address] [facility] 01/29/24 Edi Programmer Analyst Relationship Specialty Start Date End Date Brien Singer MD [address] [place] [address] PCP - General Family Medicine 09/03/18 Edwin Naranjo, LIVE OUT NANNY.BUSINESS DATA ANALYST [address] [place] [address] [facility] 01/29/24 Edi Programmer Analyst Relationship Specialty Start Date End Date Brien Singer MD [address] [place] [address] PCP - General Family Medicine 09/03/18 Edwin Naranjo, LIVE OUT NANNY.BUSINESS DATA ANALYST [address] [place] [address] [facility] Edi Programmer Analyst Relationship Specialty Start Date End Date Brien Singer MD [address] [place] [address] PCP - General Family Medicine 09/03/18 Edwin Naranjo APRN.BUSINESS DATA ANALYST [address] [facility] [place] [address] [facility] 01/[facility]24 Edi Programmer Analyst Relationship Specialty Start Date End Date Brien Singer MD [address] [facility] [place] [address] PCP - General Family Medicine 09/03/18 Edwin Naranjo APRN.BUSINESS DATA ANALYST [address] [facility] [place] [address] [facility]ly [facility] 01/29/24 Team Status: Active Member Role Status Dates Dr. Brien Singer MD Primary Care Provider Active Start: August 03, 2024 Maxim Guzman MD Emergency Provider Active Star t: August 03, 2024 Dr. Jasper Morrison DO Admit Provider Active Start: August 03, 2024 Dr. Jasper Morrison DO Attending Provider Active Start: August 03, 2024 Edi Programmer Analyst Relationship Specialty Start Date End Date Brien Singer MD [address] [facility] [place] [address] PCP - General Family Medicine 09/03/18 Edwin Naranjo LIVE OUT NANNY.BUSINESS DATA ANALYST [address] [facility] [place] [address] [facility]ly [facility] 01/29/24 Edi Programmer Analyst Relationship Specialty Start Date End Date Brien Singer MD [address] [facility] [place] [address] PCP - General Family Medicine 09/03/18 Edwin Naranjo, LIVE OUT NANNY.BUSINESS DATA ANALYST [address] [facility] [place] [address] [facility] Family Medicine 01/29/24 Team Status: Active Member Role/Relationship Status Dates Dr. Brien Singer MD Primary care physician Active Team Status: Inactive Member Role/Relationship Status Dates Dr. Brien Singer MD Primary care physician Active Start: August 03, 2024 End: August 03, 2024 Maxim Guzman MD Emergency Department Physician Activ e Start: August 03, 2024 End: August 03, 2024 Dr. Jasper Morrison DO Admitting physician Active Start: August 03, 2024 End: August 03, 2024 Dr. Jasper Morrison , Nurse Practitioner Active Start: August 03, 2024 End: August 03, 2024 Dr. Brien Cunha , Attending physician Active Start: August 03, 2024 End: August 03, 2024 Team Status: Active Member Role/Relationship Status Dates Dr. Brien Singer MD Primary care physician Active Start: November 06, 2024 Dr. Erick Monsivais , Emergency Departm ent Physician Active Start: November 06, 2024 Dr. Lance Garrett MD Attending physician Active Start: November 06, 2024 Team Status: Inactive Member Role/Relationship Status Dates Dr. Brien Singer MD Primary care physician Active Start: November 06, 2024 End: November 07, 2024 Dr. Erick Monsivais , Emergency Departm ent Physician Active Start: November 06, 2024 End: November 07, 2024 Dr. Lance Garrett MD Nurse Practitioner Active Start: November 06, 2024 End: November 07, 2024 Dr. Katty Mcbride DO Admitting physician Active Start: November 06, 2024 End: November 07, 2024 Dr. Katty Mcbride DO Referring Provider Active S tart: November 06, 2024 End: November 07, 2024 Dr. Katty Mcbride DO Nurse Practitioner Active S tart: November 06, 2024 End: November 07, 2024 Dr. Scott Gunn MD Attending physician Active Start: November 06, 2024 End: November 07, 2024 Team Status: Active Member Role/Relationship Status Dates Dr. Brien Singer MD Primary care physician Active Start: November 06, 2024 Dr. Erick Monsivais DO Emergency Departm ent Physician Active Start: November 06, 2024 Dr. Lance Garrett MD Nurse Practitioner Active Start: November 06, 2024 Dr. Katty Mcbride DO Admitting physician Active Start: November 06, 2024 Dr. Katty Mcbride DO Attending physician Active Start: November 06, 2024 Dr. Katty Mcbride DO Referring Provider Active S tart: November 06, 2024 Dr. Katty Mcbride DO Nurse Practitioner Active S tart: November 06, 2024 Team Status: Active Member Role/Relationship Status Dates Dr. Brien Singer MD Primary care physician Active Start: November 06, 2024 Dr. Clinton Duran MD Attending physician Active Start: November 06, 2024 Team Status: Active Member Role/Relationship Status Dates Dr. Brien Singer MD Primary care physician Active Start: November 07, 2024 Dr. Erick Monsivais DO Emergency Depart ent Physician Active Start: November 07, 2024 Dr. Lance Garrett MD Nurse Practitioner Active Start: November 07, 2024 Dr. Katty Mcbride DO Admitting physician Active Start: November 07, 2024 Dr. Katty Mcbride DO Referring Provider Active S tart: November 07, 2024 Dr. Katty Mcbride DO Nurse Practitioner Active S tart: November 07, 2024 Dr. Scott Gunn MD Attending physician Active Start: November 07, 2024 Dr. Scott Gunn MD Nurse Practitioner Active Start: November 07, 2024 Team Status: Active Member Role/Relationship Status Dates Dr. Brien Singer MD Primary care physician Active Start: November 11, 2024 Dr. Lance Garrett MD Attending physician Active Start: November 11, 2024 Goals (unrecognized section and content) Goals may be documented in a n alternate sectionGoals may be documented in an alternate section (unrecognized sect ion and content) No Status Records FoundNo Status Records Found INFORMATION SOURCE (unrecogn ized section and content) DATE CREATED AUTHOR 11/21/2024 [facility] DATE CREATED AUTHOR AUTHOR'S SARA WHITMAN 11/25/2024 [facility] FOR RECORDS PERTAINING TO PATIENTS WHO ARE OR HAVE BEEN ENROLLED IN A CHEMICAL DEPENDENCY/SUBSTANCEABUSE PROGRAM, SOME INFORMATION MAY BE OMITTED. This clinical summary was aggregated from multiple sources. Caution should be exercised in using it in the provision of clinical care. This summary normalizes information from multiple sources, and as a consequence, information in this document may materially change the coding, format and clinical context of patient data. In addition, data may be omitted in some cases. CLINICAL DECISIONS SHOULD BE BASED ON THE PRIMARY CLINICAL RECORDS. [facility] [employer] [facility]. provides no warranty or guarantee of the accuracy or completeness of information in this document.
== END | disposition home or self-care (01) ==
PROVIDERS: PCP Family Medicine; Referring Provider Internal Medicine Cardiovascular Disease; Visit Provider Internal Medicine Cardiovascular Disease
DX: R05.8 Other specified cough (principal)
CPT/HCPCS: 71046

== ENCOUNTER → 2025-01-14 | Outpatient (CLI) | payer OTHER, SELFPAY ==
[2025-01-14 12:29] LABS: Hematocrit 37.5 % (40-54); Hemoglobin 12.7 g/dL (13.0-16.5); Immature Granulocytes Count 0.020 X10^3/uL (0.0-0.0); Mean Corp Hgb Conc 33.9 g/dL (32-36); Mean Corpuscular Volume 104.7 fL (80-94); Mean Platelet Vol. 10.1 fl (6.2-12.0); NRBC Flagged by Analyzer 0 % (0-5); Platelet Count 525 K/mm3 (150-450); RBC Distribution Width CV 13.8 % (11.6-14.6); RBC Distribution Width SD 52.4 fl (35.1-43.9); Red Blood Count 3.58 M/mm3 (4.6-6.2); White Blood Count 8.4 K/mm3 (4.4-11.0)
[2025-01-14 13:43] LABS: AST(SGOT) 41 U/L (<=37); Alanine Aminotransfer ALT/SGPT 35 U/L (<=46); Albumin, Serum 3.8 g/dL (3.4-4.8); Alkaline Phosphatase 122 U/L (40-129); Anion Gap 11 (5-15); BUN 17 mg/dL (4-19); BUN/Creat Ratio 14.7 RATIO (10-20); Calcium,Total 9.0 mg/dL (7.6-11.0); Carbon Dioxide 24.8 mmol/L (21.0-32.0); Chloride 106 mmol/L (98-108); Cholesterol 118 mg/dL (<=200); Globulin 3.1 g/dL (2.2-4.2); Glucose 92 mg/dL (70-99); Hepatitis B Surface Antigen Nonreactive (Nonreactive); Hepatitis C Antibody Nonreactive (Nonreactive); Low Density Lipoprotein Calc. 60 mg/dL; PSA,Total - Annual Screen 0.13 ng/mL (0.02-4.00); Potassium 4.9 mmol/L (3.3-5.1); Triglycerides 120 mg/dL; Very Low Density Lipoprotein 24 mg/dL (5-40); cholesterol:hdl ratio screen 3.23
[2025-01-15 11:19] LABS: Vitamin B12 491 pg/mL (180-914)
== END | disposition home or self-care (01) ==
LOC: LAB 11:31
PROVIDERS: PCP Internal Medicine; Referring Provider Internal Medicine; Visit Provider Internal Medicine
DX: D47.3 Essential (hemorrhagic) thrombocythemia (principal); I25.2 Old myocardial infarction; R74.8 Abnormal levels of other serum enzymes; Z12.5 Encounter for screening for malignant neoplasm of prostate; D64.9 Anemia, unspecified
CPT/HCPCS: 36415; 80053; 80061; 82607; 84153; 85025; 86803; 87340; G0103